=== PATIENT | female | born 1950 | race Caucasian/White ===

== ENCOUNTER → 2016-11-17 | Outpatient (CLI) | payer OTHER ==
[~2016-11-17] MED LIST: ACET1CAP PO; AMLO5TAB2 PO; ASPCH81X PO; B-COCAP2 PO; CALC-354 PO; CHN/1 PO; CLON1TAB3 PO; CLOP1TAB5 PO; EFF75 PO; FERRTAB18; INDO-24 PO; INSDGIPEN SC; INSUINJ4 SQ; MELA1TAB5 PO; METF1000 PO; METO1TAB68 PO; METO25TA3 PO; MIDRIN PO; NITR0.4D6 SL; ONDA4TAB10 SL; ONDA8TAB12 PO; PANT40TA PO; RISP0.257 PO; ROSU40TA PO; SULF1TAB92 PO; TOPI50TA24 PO; TRAM-10 PO; TRIA0.1L EX; VORT10TA12 PO; [UNRECOGNIZED DRUG - CODE] PV
--- NOTE | 2016-11-17 12:40 | MAMMOGRAPHY REPORT ---
BILATERAL DIGITAL SCREENING MAMMOGRAM WITH CAD: 11/17/2016 CLINICAL HISTORY: Routine screening. Patient has no complaints. TECHNIQUE: Current study was also evaluated with a Computer Aided Detection (CAD) system. Bilatera l CC and MLO views were obtained. COMPARISON: Comparison is made to exams dated: 11/12/2015 mammogram, 10/30/2013 mammogram, 11/01/2014 mammogram, 10/26/2012 mammogram, 10/26/2011 mammogram, and 10/20/2010 mammogram - [facility] nt. BREAST COMPOSITION: There are scattered areas of fibroglandular density in both breasts. FINDINGS: No suspicious masses, calcifications, or areas of architectural distortion are noted in e ither breast. There has been no significant interval change compared to prior exams. IMPRESSION: ACR BI-RADS CATEGORY 1: NEGATIVE There is no mammographic evidence of malignancy. A 1 year screening mammogram is recommended. The p atient will receive written notification of the results. Approximately 10% of breast cancers are not detected with mammography. A negative mammographic repor t should not delay biopsy if a clinically suggestive mass is present. Chiqui Manuel M.D. ah/:11/17/2016 10:30:58 Measurement Operator: Nereida SCHUMACHER(Dev)(M), [facility] letter sent: Normal 1/2 BI-RADS Code: ACR BI-RADS Category 1: Negative
== END | disposition home or self-care (01) ==
LOC: C.MAMM 09:13
PROVIDERS: ATTEND Family Medicine
DX: Z12.31 Encounter for screening mammogram for malignant neoplasm of breast (principal)

== ENCOUNTER → 2016-11-18 | Day surgery (SDC) | payer OTHER ==
[2016-11-04 07:44] VITALS: Ht 160 cm; Wt 68.2 kg
[~2016-11-18] VITALS: Ht 160 cm; Wt 68.2 kg
[~2016-11-18] MED LIST changes: +IOPAMIDOL INJ 61% 15 ML VIAL ONE; +LIDOCAINE HCL 1% MPF 5 ML VIAL ONE; +METO-479 PO; -METO1TAB68 PO; +SODIUM CHLORIDE 0.9% INJ 10 ML VIAL ONE
--- NOTE | 2016-11-18 13:45 | History & Physical Bridge - SC ---
H&P Re-Evaluation Bridge Note: I have examined the patient, reviewed the History & Physical and in the interval since the performance of the History & Physical I have noted the following changes of clinical significance: No changes noted
[2016-11-18 14:07] VITALS: TEMP 37
--- NOTE | 2016-11-18 14:16 | Discharge Instructions ---
Discharge Instructions Date of Service Nov 18, 2016. Visit Reason for Visit: Low Back Pain Discharge Discharge Diagnosis / Problem: left leg pain Discharge Goals Goal(s): Decrease discomfort, Improve function Medications Stopped Medications Name(s): Stopped plavix and aspirin 5 days ago Activity Recommendations Activity Limitations: resume your previous activity Anesthesia . Post Anesthesia Instructions: If you have had General Anesthesia or IV Sedation: * Do not drive today. * Resume driving when surgeon permits. * Do not make important decisions or sign legal documents today. * Call surgeon for: 1. Temperature elevations greater than 101 degrees F. 2. Uncontrollable pain. 3. Excessive bleeding. 4. Persistent nausea and vomiting. 5. Medication intolerance (nausea, vomiting or rash). * For nausea and vomiting use only clear liquids such as: tea, soda, bouillon until nausea subsides, then gradually increase diet as tolerated. * If you have any concerns or questions, call your surgeon's office. If physician is unavailable and it is an emergency, call 911 or go to the nearest emergency room. . Diet Recommendations Recommended Home Diet: resume previous diet Procedures Procedures Performed: Caudal Epidural Steroid Injection Pending Studies Studies pending at discharge: no Medical Emergencies . Who to Call and When: Medical Emergencies: If at any time you feel your situation is an emergency, please call 911 immediately. . Non-Emergent Contact Non-Emergency issues call your: Specialist . . "Provider Documentation" section prepared by Nishant Leija.
[2016-11-18 14:21] VITALS: BP 120/78; PULSE 66; O2SAT 98
--- NOTE | 2016-11-18 14:44 | OPERATIVE REPORT ---
DATE OF OPERATION: 11/18/2016 PREOPERATIVE DIAGNOSIS: L5-S1 disk protrusion with a left S1 radiculopathy. POSTOPERATIVE DIAGNOSIS: Same. PROCEDURE: Caudal epidural steroid injection under fluoroscopic guidance. INDICATIONS: The patient is a 66-year-old white female who underwent injections with good relief of pain in the past. She reports, however, pain has been escalating and she is requesting an epidural injection to provide her with relief. PHYSICAL EXAMINATION: Pleasant female seated comfortably in no apparent distress. She has normal lower extremity strength, intact sensation distally with negative straight leg raises. CONSENT: Verbal and written consent was obtained from the patient. Risks and benefits were reviewed. Risks include, but are not limited to epidural abscess and allergic reaction. She wishes to proceed. DESCRIPTION OF PROCEDURE: The patient was taken back to the special procedures room of the [facility], where she was maintained in a prone position. Backside was cleansed with Betadine x3 and a dry sterile dressing was applied. Fluoroscope was used to identify the sacral hiatus and the overlying skin was anesthetized with 4 mL of lidocaine 1% with a 25-gauge 1.5-inch needle. A 25-gauge 3.5-inch spinal needle was then directed towards the sacral canal. It was advanced under lateral fluoroscopic guidance to be well within the canal. She then underwent injection after negative aspiration of 40 mg of Depo-Medrol and 5 mL of preservative free sodium chloride. Injection reproduced some pressure in this area. She underwent complete injection. DISPOSITION: 1. The patient is taken out into the discharge recovery area, where she will be discharged home once discharge criteria have been met. 2. She will follow up in the [facility] office in 2-4 weeks. I attest to the content of the Intraoperative Record and any orders documented therein. Any exceptio ns are noted below.
== END | disposition home or self-care (01) ==
LOC: X.SURG 12:36
PROVIDERS: ATTEND Physical Medicine & Rehabilitation
DX: M54.16 Radiculopathy, lumbar region (principal); Z79.82 Long term (current) use of aspirin

== ENCOUNTER 2017-01-30 12:36 | Emergency (ER) | payer OTHER ==
[~2017-01-30] VITALS: Ht 160 cm; Wt 62.6 kg
[~2017-01-30 12:36] MED LIST changes: -ACET1CAP PO; -CHN/1 PO; -FERRTAB18; -INDO-24 PO; -INSDGIPEN SC; -IOPAMIDOL INJ 61% 15 ML VIAL ONE; -LIDOCAINE HCL 1% MPF 5 ML VIAL ONE; -MELA1TAB5 PO; -ONDA4TAB10 SL; -ONDA8TAB12 PO; -SODIUM CHLORIDE 0.9% INJ 10 ML VIAL ONE; -[UNRECOGNIZED DRUG - CODE] PV
[2017-01-30 12:38] VITALS: TEMP 36.9; Ht 160 cm; Wt 62.6 kg
[2017-01-30] MEDS ORDERED: METOCLOPRAMIDE HCL INJ 5 MG/ML 2 ML VIAL IV STA (13:06)
[2017-01-30] MEDS ORDERED: SODIUM CHLORIDE 0.9% 1000ML 1,000 ML IV STA (13:06)
--- NOTE | 2017-01-30 13:09 | EMERGENCY ROOM VISIT NOTE ---
History Report prepared by Maia: Martha Heredia Under the Supervision of: Dr. Art Rubio M.D. First contact with patient: 12:43 Chief Complaint: VOMITING Stated Complaint: VOMITING, RAPID WEIGHT LOSS History of Present Illness The patient is a 66 year old female who presents to the Emergency Room with complaints of persistent vomiting for the past several weeks. She is accompanied by her . She has been following with her PCP, Dr. Smith with [facility], but states no known etiology has been found for her persistent vomiting. She denies any diarrhea but admits to minor abdominal pain due to her vomiting. She reports she has experienced an 8 pound weight loss in the past 3 weeks due to being unable to keep food down. Dr. Smith has referred her to Gastroenterology, but she states she has not seen GI yet. She did have an endoscopy and colonoscopy this past fall, and states both scans came back normal. The last time she was able to keep food down was last night. The patient still has both her gallbladder and appendix. She is a former smoker, having recently quit smoking on January 02, 2017. She is currently on Chantix. She complains of some increased palpitations over the past few days. The patient is diabetic and has a history of hypertension. The patient also admits to a history of heart disease and notes she had a cardiac stent placed here at [facility] in 2007. 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 A total of 10 systems reviewed and were otherwise negative. Past Medical & Surgical Medical Problems: (1) Diabetes mellitus (2) Heart disease (3) History of bronchitis (4) History of pneumonia (5) Hypertension Family History Cancer Gallbladder disease Heart disease Hypertension Lung disease Social History Smoking Status: Former Smoker Smokeless Tobacco Use: No Alcohol Use: occasionally Drug Use: none Marital Status: Housing Status: lives with family Occupation Status: retired Current/Historical Medications Scheduled Amlodipine Besylate (Norvasc), 2.5 MG PO QPM Aspirin (Aspirin Chewable), 81 MG PO QPM Calcium Carbonate-Cholecalcife (Caltrate 600+D), 1 TAB PO BID Clonazepam (Klonopin), 1 MG PO HS Clopidogrel Bisulfate (Plavix), 75 MG PO QAM Homeopathic Products (Hylafem), 600 MG PV DAILY Insulin Glargine (Lantus Solostar), 14 UNITS SC QAM Melatonin (Kp Melatonin), 1 TAB PO HS Metformin Hcl (Glucophage), 1,000 MG PO BID Metoprolol Succinate (Toprol Xl), 25 MG PO QPM Metoprolol Succinate (Toprol Xl), 100 MG PO QPM Ondasetron Odt (Zofran Odt), 4 MG SL Q6H Pantoprazole (Protonix), 40 MG PO BID Rosuvastatin Calcium (Crestor), 40 MG PO QPM Varenicline (Chantix), 1 MG PO DIRECTED Venlafaxine Hcl (Effexor), 75 MG PO QAM Vortioxetine HBr (Trintellix), 1 TAB PO QAM Scheduled PRN Wmhzauqvqmucb-Dzpdglmnjmfaw-Td (Nodolor), 1 CAP PO UD PRN for Migraine Indomethacin (Indocin), 50 MG PO TID PRN for Pain Nitroglycerin (Nitroglycerin), 1 DOSE SL DIRECTED PRN for CHEST PAIN Ondansetron Hcl (Zofran), 8 MG PO Q8 PRN for Nausea or Vomiting Risperidone (Risperdal), 0.25 MG PO HS PRN for Sleep Tramadol (Ultram), 50 MG PO Q8H PRN for Pain Allergies Coded Allergies: Penicillins (Verified Allergy, Intermediate, HIVES,SWELLING, 01/30/17) HIVES/SWELLING [place] Inhibitors (Verified Allergy, Unknown, cough, 01/30/17) Angiotensin Receptor Blockers (Verified Allergy, Unknown, ELEVATED K, 01/30) Levofloxacin (Verified Allergy, Unknown, JOINT PAIN, 01/30/17) Physical Exam Vital Signs Date Time Temp Pulse Resp B/P (MAP) Pulse Ox O2 Delivery O2 Flow Rate FiO2 01/30/17 16:21 68 18 146/83 99 01/30/17 14:22 82 16 163/87 98 Room Air 01/30/17 13:20 66 01/30/17 12:38 36.9 68 18 117/70 100 Room Air Physical Exam GENERAL: Patient is a healthy-appearing well-nourished 66 year old female. HEAD: Normocephalic atraumatic EYES: Ocular movements intact pupils equal and react to light OROPHARYNX: mucous membranes are moist no exudates present no erythema or edema present NECK: Supple no nuchal rigidity CHEST: Good equal expansion LUNGS: Clear and equal to auscultation CARDIAC: Normal S1 and S2 ABDOMEN: Soft, tender in epigastric area and RUQ, no guarding BACK: No CVA tenderness EXTREMITIES: No pain upon palpation normal muscle strength in all groups no clubbing cyanosis or edema NEURO: Patient is following commands is answering questions appropriately. Alert and oriented x3 Cranial Nerves 2-12 grossly intact Medical Decision & Procedures ER Provider Diagnostic Interpretation: Radiology results as stated below per my review and radiologist interpretation: MESENTERIC ARTERIAL DUPLEX ULTRASOUND. CLINICAL HISTORY: Epigastric pain and vomiting COMPARISON STUDY: CT scan dated 01/30/2017 FINDINGS: The peak systolic velocity within the aorta was 70 cm/s. The peak systolic velocity within the superior mesenteric artery was 309 cm/s. The peak systolic velocity of the celiac artery was 89 cm/s. The peak diastolic velocity of the superior mesenteric artery was within normal limits. IMPRESSION: 1. No evidence of celiac artery stenosis 2. Mild elevation of the peak systolic velocity within the superior mesenteric artery, but normal diastolic velocity. A hemodynamically significant stenosis is not felt to be present. No significant proximal stenosis was visualized on the non-angiographic CT scan performed the same day. Electronically signed by: César Leiva M.D. 01/30/2017 3:[address] ABD/PELVIS IV AND ORAL CONT CLINICAL HISTORY: Epigastric pain and vomiting COMPARISON STUDY: None. TECHNIQUE: Following the IV administration of 119 mL of Optiray-320, CT scan of the abdomen and pelvis was performed from the lung bases to the proximal femurs. Images are reviewed in the axial, sagittal, and coronal planes. IV contrast was administered without complication. CT DOSE: 498.17 mGycm FINDINGS: Lower chest: There are mild basilar atelectatic changes Liver: The contrast-enhanced liver is normal in size, contour, and attenuation. There is no intrahepatic biliary ductal dilatation. The hepatic veins and portal veins are patent. Gallbladder: Unremarkable. Spleen: Normal in size and attenuation. Pancreas: Unremarkable. Adrenal glands: Unremarkable. Kidneys: There is symmetric renal cortical enhancement. The kidneys are normal in size without hydronephrosis. Bowel: There are no transition zones indicate bowel obstruction. There is moderate fecal retention. The appendix appears normal. There is no acute diverticulitis. Peritoneum: There is no intraperitoneal free air or abdominal ascites. There is a tiny fat-containing left inguinal hernia. Vasculature: The abdominal aorta is normal in course and caliber. Adenopathy: Periportal and peripancreatic lymph nodes are the upper limits of normal in size. Pelvic viscera: The uterus appears surgically absent. Skeletal structures: No destructive osseous lesions are seen. IMPRESSION: 1. No evidence of bowel obstruction. No evidence of free air 2. Normal appendix. No evidence of acute diverticulitis 3. Moderate fecal retention Electronically signed by: César Leiva M.D. 01/30/2017 3:41 PM BILIARY ULTRASOUND CLINICAL HISTORY: Right upper quadrant abdominal pain COMPARISON STUDY: No previous studies for comparison. FINDINGS: The pancreas appears sonographically normal. The liver appears sonographically normal. The gallbladder appears sonographically normal. There is no ductal dilatation. The common bile duct measures 5 mm. There is minimal fullness the right renal collecting system. IMPRESSION: Minimal fullness the right renal collecting system. Otherwise normal biliary ultrasound. Electronically signed by: César Leiva M.D. 01/30/2017 3:45 PM Laboratory Results 01/30/17 13:28 Red Blood Count 3.76, Mean Corpuscular Volume 88.8, Mean Corpuscular Hemoglobin 30.3, Mean Corpuscular Hemoglobin Concent 34.1, Mean Platelet Volume 9.7, Neutrophils (%) (Auto) 58.4, Lymphocytes (%) (Auto) 30.4, Monocytes (%) (Auto) 9.8, Eosinophils (%) (Auto) 0.7, Basophils (%) (Auto) 0.5, Neutrophils # (Auto) 3.22, Lymphocytes # (Auto) 1.68, Monocytes # (Auto) 0.54, Eosinophils # (Auto) 0.04, Basophils # (Auto) 0.03 01/30/17 13:28 Test 01/30/17 13:28 01/30/17 13:36 01/30/17 14:25 White Blood Count 5.52 K/uL (4.8-10.8) Red Blood Count 3.76 M/uL (4.2-5.4) Hemoglobin 11.4 g/dL (12.0-16.0) Hematocrit 33.4 % (37-47) Mean Corpuscular Volume 88.8 fL (80-100) Mean Corpuscular Hemoglobin 30.3 pg (25-34) Mean Corpuscular Hemoglobin Concent 34.1 g/dl (32-36) Platelet Count 188 K/uL (130-400) Mean Platelet Volume 9.7 fL (7.4-10.4) Neutrophils (%) (Auto) 58.4 % Lymphocytes (%) (Auto) 30.4 % Monocytes (%) (Auto) 9.8 % Eosinophils (%) (Auto) 0.7 % Basophils (%) (Auto) 0.5 % Neutrophils # (Auto) 3.22 K/uL (1.4-6.5) Lymphocytes # (Auto) 1.68 K/uL (1.2-3.4) Monocytes # (Auto) 0.54 K/uL (0.11-0.59) Eosinophils # (Auto) 0.04 K/uL (0-0.5) Basophils # (Auto) 0.03 K/uL (0-0.2) RDW Standard Deviation 44.2 fL (36.4-46.3) RDW Coefficient of Variation 13.4 % (11.5-14.5) Immature Granulocyte % (Auto) 0.2 % Immature Granulocyte # (Auto) 0.01 K/uL (0.00-0.02) Est Creatinine Clear Calc Drug Dose 38.1 ml/min Estimated GFR () 54.5 Estimated GFR (Non- 47.1 BUN/Creatinine Ratio 18.6 (10-20) Calcium Level 8.7 mg/dl (8.5-10.1) Total Bilirubin 0.4 mg/dl (0.2-1) Direct Bilirubin 0.1 mg/dl (0-0.2) Aspartate Amino Transf (AST/SGOT) 14 U/L (15-37) Alanine Aminotransferase (ALT/SGPT) 13 U/L (12-78) Alkaline Phosphatase 41 U/L (45-117) Total Creatine Kinase 36 U/L (26-192) Creatine Kinase MB 0.5 ng/ml (0.5-3.6) Creatine Kinase MB Ratio 1.4 (0-3.0) Troponin I < 0.015 ng/ml (0-0.045) Total Protein 7.2 gm/dl (6.4-8.2) Albumin 3.7 gm/dl (3.4-5.0) Lipase 116 U/L (73-393) Bedside Hemoglobin 11.2 g/dl (12.0-16.0) Bedside Hematocrit 33 % (37-47) Bedside Sodium 135 mEq/L (135-144) Bedside Potassium 4.1 mEq/L (3.3-5.0) Bedside Chloride 100 mEq/L (101-112) Bedside Total CO2 22 mEq/l (24-31) Anion Gap 19.0 mmol/L (16-25) Bedside Blood Urea Nitrogen 24 mg/dl (7-18) Bedside Creatinine 1.3 mg/dl (0.6-1.3) Bedside Glucose (other) 78 mg/dl (70-99) Bedside Ionized Calcium (Daniella) 1.24 mmol/l (1.12-1.32) Urine Color YELLOW Urine Appearance CLEAR (CLEAR) Urine pH 6.5 (4.5-7.5) Urine Specific [place] 1.016 (1.000-1.030) Urine Protein NEG (NEG) Urine Glucose (UA) NEG (NEG) Urine Ketones NEG (NEG) Urine Occult Blood NEG (NEG) Urine Nitrite NEG (NEG) Urine Bilirubin NEG (NEG) Urine Urobilinogen NEG (NEG) Urine Leukocyte Esterase NEG (NEG) Labs reviewed by ED physician. Medications Administered Medications (Trade) Dose Ordered Sig/Melvin Route Start Time Stop Time Status Last Admin Dose Admin Sodium Chloride 1,000 ml @ 999 mls/hr Q1H1M STAT IV 01/30/17 13:06 01/30/17 14:06 DC 01/30/17 13:31 999 MLS/HR Metoclopramide HCl (Reglan Inj) 10 mg NOW STAT IV 01/30/17 13:06 01/30/17 13:10 DC 01/30/17 13:31 10 MG Ondansetron HCl (Zofran Inj) 4 mg NOW STAT IV 01/30/17 14:25 01/30/17 14:26 DC 01/30/17 14:34 4 MG ECG Indication: vomiting Rate (beats per minute): 67 Rhythm: normal sinus Findings: other (old septal infarct, normal EKG) ED Course 1257: Past medical records reviewed. The patient was evaluated in room C1. A complete history and physical examination was performed. 1306: Reglan HCl 10 mg IV, NSS 1000 ml @ 999 mls/hr IV. 1425: Zofran 4 mg IV. 1600: I reevaluated the patient. She is feeling better. I discussed her results and discharge instructions and she verbalized complete understanding and agreement. Medical Decision Medication Reconciliation: I attest that I have personally reviewed the patient' s current medication list Blood Pressure Screening: Patient was found to have normal blood pressure on screening and does not require follow up. Prior records/ancillary studies reviewed. Triage Nursing notes reviewed. The patient's history was concerning for abdominal pain. Differential diagnosis: Etiologies such as appendicitis, diverticulitis, PUD, biliary pathology, UTI, pancreatitis, obstruction, mesenteric ischemia, aortic pathology, infections, inflammatory bowel disease, renal colic, as well as others were entertained. This is a 66-year-old female who presents emergency Department with weight loss as well as vomiting that has been ongoing for the past several weeks. The patient recently had an MRI of her abdomen which was reviewed in the [employer] system. Due to her past medical history including years of smoking she was sent for mesenteric ultrasound as well as a gallbladder ultrasound. Neither of these show an acute process serial abdominal examinations were performed on the patient in the emergency department and at no tender the patient exhibited a surgical abdomen or abdominal tenderness. She was sent for CAT scan the abdomen pelvis using contrast. The patient refused pain medication in the emergency department she was given nausea medication as well as fluid. I do believe that the patient can be conservatively treated using nausea medication and I will note that the patient was able to keep down the oral contrast in the emergency department. She will follow-up with gastroenterology. Patient and family were in agreement with the treatment plan. Impression Primary Impression: Vomiting Scribe Attestation The scribe's documentation has been prepared under my direction and personally reviewed by me in its entirety. I confirm that the note above accurately reflects all work, treatment, procedures, and medical decision making performed by me. Departure Information Dispostion Home / Self-Care Prescriptions Ondasetron Odt (ZOFRAN ODT) 4 Mg Tab 4 MG SL Q6H for Nausea, #6 TAB Prov: Art Rubio MD 01/30/17 Referrals Brent Smith M.D. (PCP) Patient Instructions ED Diet Vomiting Diarrhea, Hypertension Sc, My [facility], Nausea Vomit Control, Vomit Diarrhea Self Care Additional Instructions Follow up with DR Cole's office Take 10 oz bottle of miralax; Add to 16 oz of gatorade Drink continuously until moving creamy stools Clear liquid diet for next 48 hours Return if you develop fevers or pain worsens You were found to have an elevated blood pressure today (>120 sytolic or >90 diastolic). Per medicare guidelines, you need to follow up with this blood pressure screening with your Primary Care Physician (PCP). For a new PCP call [phone]. Culture results are usually available in approx 48 hours You have been examined and treated today on an emergency basis only. This is not a substitute for, or an effort to provide, complete comprehensive medical care. It is impossible to recognize and treat all injuries or illnesses in a single emergency department visit. It is therefore important that you follow up closely with Dr Smith. Call as soon as possible for an appointment. Thank you for your time and consideration. I look forward to speaking with you again soon. Please don't hesitate to call us if you have any questions. Problem Qualifiers Primary Impression: Vomiting Vomiting type: unspecified Vomiting Intractability: unspecified Nausea presence: unspecified Qualified Codes: R11.10 - Vomiting, unspecified
[2017-01-30 13:40] LABS: HEMATOCRIT 33.4 % (37-47); MEAN CELL VOLUME 88.8 fL (80-100); MEAN CORPUSCULAR HEMOGLOBIN 30.3 pg (25-34); MEAN CORPUSCULAR HGB CONC 34.1 g/dl (32-36); MEAN PLATELET VOLUME 9.7 fL (7.4-10.4); PLATELET COUNT 188 K/uL (130-400); RED BLOOD COUNT 3.76 M/uL (4.2-5.4); WHITE BLOOD COUNT 5.52 K/uL (4.8-10.8)
[2017-01-30 13:56] LABS: ALT/SGPT 13 U/L (12-78); AST/SGOT 14 U/L (15-37); BLOOD UREA NITROGEN 22 mg/dl (7-18); BUN/CREATININE RATIO 18.6 (10-20); CALCIUM 8.7 mg/dl (8.5-10.1); CARBON DIOXIDE 24 mmol/L (21-32); CHLORIDE 102 mmol/L (98-107); GLUCOSE 76 mg/dl (70-99); POTASSIUM 4.1 mmol/L (3.5-5.1); SODIUM 137 mmol/L (136-145)
[2017-01-30 14:00] LABS: BASO % 0.5 %; BASO ABS # 0.03 K/uL (0-0.2); COMPLETE YES; EOS % 0.7 %; IG% 0.2 %; LYMPH % 30.4 %; LYMPH ABS # 1.68 K/uL (1.2-3.4); MONO % 9.8 %; NEUT % 58.4 %
[2017-01-30 14:01] LABS: ALKALINE PHOSPHATASE 41 U/L (45-117); CKMB/CK RATIO 1.4 (0-3.0)
[2017-01-30 14:08] LABS: ISTAT CREATININE 1.3 mg/dl (0.6-1.3); ISTAT HEMOGLOBIN 11.2 g/dl (12.0-16.0); ISTAT IONIZED CALCIUM 1.24 mmol/l (1.12-1.32)
[2017-01-30] MEDS ORDERED: OPTIRAY 320 IV PRN (14:15)
[2017-01-30] MEDS ORDERED: ONDANSETRON INJ 2 MG/ML 2 ML VIAL IV STA (14:25)
[2017-01-30] MEDS ORDERED: ONDA8TAB12 PO (14:42)
[2017-01-30] MEDS ORDERED: MELA1TAB5 PO (14:42)
[2017-01-30] MEDS ORDERED: INDO-24 PO (14:42)
[2017-01-30] MEDS ORDERED: ACET1CAP PO (14:42)
[2017-01-30] MEDS ORDERED: [UNRECOGNIZED DRUG - CODE] PV (14:42)
[2017-01-30] MEDS ORDERED: INSDGIPEN SC (14:42)
[2017-01-30] MEDS ORDERED: CHN/1 PO (14:42)
[2017-01-30 14:44] LABS: URINE APPEARANCE CLEAR (CLEAR); URINE BILIRUBIN NEG (NEG); URINE COLOR YELLOW; URINE NITRITE NEG (NEG); URINE PH 6.5 (4.5-7.5); URINE SPECIFIC GRAVITY 1.016 (1.000-1.030); UROBILINOGEN NEG (NEG)
[2017-01-30 14:46] LABS: MANUAL MICROSCOPIC REQUIRED? NO; REVIEW REQ? NO
--- NOTE | 2017-01-30 15:42 | DIAGNOSTIC IMAGING REPORT ---
CT ABD/PELVIS IV AND ORAL CONT CLINICAL HISTORY: Epigastric pain and vomiting COMPARISON STUDY: None. TECHNIQUE: Following the IV administration of 119 mL of Optiray-320, CT scan of the abdomen and pelvis was performed from the lung bases to the proximal femurs. Images are reviewed in the axial, sagittal, and coronal planes. IV contrast was administered without complication. CT DOSE: 498.17 mGycm FINDINGS: Lower chest: There are mild basilar atelectatic changes Liver: The contrast-enhanced liver is normal in size, contour, and attenuation. There is no intrahepatic biliary ductal dilatation. The hepatic veins and portal veins are patent. Gallbladder: Unremarkable. Spleen: Normal in size and attenuation. Pancreas: Unremarkable. Adrenal glands: Unremarkable. Kidneys: There is symmetric renal cortical enhancement. The kidneys are normal in size without hydronephrosis. Bowel: There are no transition zones indicate bowel obstruction. There is moderate fecal retention. The appendix appears normal. There is no acute diverticulitis. Peritoneum: There is no intraperitoneal free air or abdominal ascites. There is a tiny fat-containing left inguinal hernia. Vasculature: The abdominal aorta is normal in course and caliber. Adenopathy: Periportal and peripancreatic lymph nodes are the upper limits of normal in size. Pelvic viscera: The uterus appears surgically absent. Skeletal structures: No destructive osseous lesions are seen. IMPRESSION: 1. No evidence of bowel obstruction. No evidence of free air 2. Normal appendix. No evidence of acute diverticulitis 3. Moderate fecal retention Electronically signed by: César Leiva M.D. 01/30/2017 3:41 PM Dictated Date/Time: 01/30/2017 3:37 PM
--- NOTE | 2017-01-30 15:46 | DIAGNOSTIC IMAGING REPORT ---
BILIARY ULTRASOUND CLINICAL HISTORY: Right upper quadrant abdominal pain COMPARISON STUDY: No previous studies for comparison. FINDINGS: The pancreas appears sonographically normal. The liver appears sonographically normal. The gallbladder appears sonographically normal. There is no ductal dilatation. The common bile duct measures 5 mm. There is minimal fullness the right renal collecting system. IMPRESSION: Minimal fullness the right renal collecting system. Otherwise normal biliary ultrasound. Electronically signed by: César Leiva M.D. 01/30/2017 3:45 PM Dictated Date/Time: 01/30/2017 3:43 PM
--- NOTE | 2017-01-30 15:53 | DIAGNOSTIC IMAGING REPORT ---
MESENTERIC ARTERIAL DUPLEX ULTRASOUND. CLINICAL HISTORY: Epigastric pain and vomiting COMPARISON STUDY: CT scan dated 01/30/2017 FINDINGS: The peak systolic velocity within the aorta was 70 cm/s. The peak systolic velocity within the superior mesenteric artery was 309 cm/s. The peak systolic velocity of the celiac artery was 89 cm/s. The peak diastolic velocity of the superior mesenteric artery was within normal limits. IMPRESSION: 1. No evidence of celiac artery stenosis 2. Mild elevation of the peak systolic velocity within the superior mesenteric artery, but normal diastolic velocity. A hemodynamically significant stenosis is not felt to be present. No significant proximal stenosis was visualized on the nonangiographic CT scan performed the same day. Electronically signed by: César Leiva M.D. 01/30/2017 3:51 PM Dictated Date/Time: 01/30/2017 3:45 PM
[2017-01-30] MEDS ORDERED: ONDA4TAB10 SL (16:08)
[2017-01-30 16:21] VITALS: BP 146/83; PULSE 68; O2SAT 99
== END 2017-01-30 16:22 | disposition home or self-care (01) ==
LOC: C.EDB 12:37 → C.EDC 16:22
DX: R11.10 Vomiting, unspecified (principal); E11.9 Type 2 diabetes mellitus without complications; I51.9 Heart disease, unspecified; I10 Essential (primary) hypertension; Z79.82 Long term (current) use of aspirin; Z87.891 Personal history of nicotine dependence; Z82.49 Family history of ischemic heart disease and other diseases of the circulatory system; Z79.4 Long term (current) use of insulin; K59.00 Constipation, unspecified

== ENCOUNTER → 2017-03-22 | Outpatient (CLI) | payer OTHER ==
[~2017-03-22] MED LIST changes: +ACET1CAP PO; -B-COCAP2 PO; +CHN/1 PO; +INDO-24 PO; +INSDGIPEN SC; -INSUINJ4 SQ; +MELA1TAB5 PO; -METO-479 PO; +METO1TAB68 PO; -MIDRIN PO; +ONDA4TAB10 SL; +ONDA8TAB12 PO; -SULF1TAB92 PO; -TOPI50TA24 PO; -TRIA0.1L EX; +[UNRECOGNIZED DRUG - CODE] PV
--- NOTE | 2017-03-22 08:38 | DIAGNOSTIC IMAGING REPORT ---
MRI LUMBAR SPINE W/O CONTRAST CLINICAL HISTORY: Left sacral radiculopathy. TECHNIQUE: Sagittal and axial T1, T2 and STIR images were obtained. COMPARISON STUDY: MRI dated 03/23/2016 OBSERVATIONS: The vertebral bodies and posterior elements appear intact. There is no abnormal bony signal present to suggest a marrow replacement process. L1-2: There is a minor circumferential disc bulge. There is no significant spinal or foraminal stenosis L2-3: There is a mild circumferential disc bulge, and tiny left foraminal disc protrusion.. There is a slight triangular configuration of the spinal canal. There is no significant foraminal narrowing L3-4: There is a mild circumferential disc bulge, and tiny left foraminal disc protrusion. There is a slight triangle configuration spinal canal. There is no significant foraminal narrowing. L4-5: There is a mild circumferential disc bulge. There is a mild triangular configuration spinal canal. There is no significant foraminal narrowing L5-S1: There is a disc bulge and tiny central disc protrusion. There is no significant foraminal narrowing. The conus medullaris and cauda equina appear normal. IMPRESSION: Multilevel spondylitic changes as described above. Minor triangular spinal canal narrowing at multiple levels. No significant frontal stenosis. Electronically signed by: César Leiva M.D. 03/22/2017 8:37 AM Dictated Date/Time: 03/22/2017 8:33 AM
== END | disposition home or self-care (01) ==
LOC: C.MRIBC 07:31
PROVIDERS: ATTEND Physical Medicine & Rehabilitation
DX: M54.18 Radiculopathy, sacral and sacrococcygeal region (principal); M51.26 Other intervertebral disc displacement, lumbar region

== ENCOUNTER → 2017-11-25 | Outpatient (CLI) | payer OTHER ==
[~2017-11-25] MED LIST changes: +METO-479 PO; -METO1TAB68 PO; -METO25TA3 PO; +METO25TA4 PO; -ONDA4TAB10 SL
--- NOTE | 2017-11-25 15:38 | MAMMOGRAPHY REPORT ---
BILATERAL DIGITAL SCREENING MAMMOGRAM TOMOSYNTHESIS WITH CAD: 11/25/2017 CLINICAL HISTORY: Routine screening. Patient has no complaints. TECHNIQUE: Breast tomosynthesis in addition to standard 2D mammography was performed. Current study was also evaluated with a Computer Aided Detection (CAD) system. COMPARISON: Comparison is made to exams dated: 11/17/2016 mammogram, 11/12/2015 mammogram, 11/01/2014 m ammogram, 10/30/2013 mammogram, 10/26/2012 mammogram, and 10/26/2011 mammogram - [facility]. BREAST COMPOSITION: There are scattered areas of fibroglandular density in both breasts. FINDINGS: No suspicious masses, calcifications, or areas of architectural distortion are noted in ei ther breast. There has been no significant interval change compared to prior exams. Mildly prominent bilateral axillary lymph nodes appear stable compared to multiple prior exams including the 2013 and 2010 exams. IMPRESSION: ACR BI-RADS CATEGORY 2: BENIGN There is no mammographic evidence of malignancy. A 1 year screening mammogram is recommended. The pa tient will receive written notification of the results. Approximately 10% of breast cancers are not detected with mammography. A negative mammographic report should not delay biopsy if a clinically suggestive mass is present. Chiqui Manuel M.D. /:11/25/2017 15:02:21 Locator: Nereida Jordan, [facility] letter sent: Normal 1/2 BI-RADS Code: ACR BI-RADS Category 2: Benign
== END | disposition home or self-care (01) ==
LOC: C.MAMM 09:36
PROVIDERS: ATTEND Family Medicine
DX: Z12.31 Encounter for screening mammogram for malignant neoplasm of breast (principal)

== ENCOUNTER 2018-10-17 07:56 | Observation (INO) ==
[2018-10-17] MEDS ORDERED: MIDAZOLAM HCL 1 MG/ML 2ML VIAL ONE ×2 (09:18→11:26)
[2018-10-17] MEDS ORDERED: NiCARDipine HCL INJ 2.5 MG/ML 10 ML AMP ONE (09:18)
[2018-10-17] MEDS ORDERED: HEPARIN (PORCINE) 1000 UNIT/ML 10 ML (CATH LAB USE ONLY) ONE ×2 (09:18→12:17)
[2018-10-17] MEDS ORDERED: NITROGLYCERIN/D5W 100MCG/ML 20ML SYR ONE (09:19)
[2018-10-17] MEDS ORDERED: fentaNYL citrate 100 MCG/2 ML VIAL ONE ×2 (09:20→11:26)
--- NOTE | 2018-10-17 09:49 | History & Physical Bridge Note ---
Date of Service October 17, 2018 History & Physical Bridge Note I have examined the patient, reviewed the History & Physical and in the interval since the performance of the History & Physical I have noted the following changes of clinical significance: no changes noted
--- NOTE | 2018-10-17 09:49 | Pre Anesthesia Assessment ---
Date of Service October 17, 2018 Pre Sedation Assessment Vital Signs Temp Pulse Pulse Pulse Resp BP Pulse Ox 10/19/18 10:44 37 C 69 75 18 136/85 93 10/19/18 07:08 37 C 75 18 136/85 93 10/19/18 03:53 36.8 C 76 18 138/89 96 10/19/18 00:00 72 10/18/18 22:54 36.6 C 66 18 122/74 96 10/18/18 19:59 36.9 C 71 17 113/70 96 10/18/18 16:00 73 10/18/18 15:30 37.1 C 70 18 121/73 96 10/18/18 11:10 37.3 C 70 17 114/70 96 Cardiovascular RRR, no murmur, no edema Respiratory normal respiratory effort, lungs clear to auscultation Pre-Sedation Airway Assessment Smoking Status: Current every day smoker Hx Sleep Apnea: No Short, Thick Neck: Yes Thyromental Distance: > or= 3.5 Finger Breadths Oral Cavity: + WNL Mallampati Class: III ASA: ASA3 NPO Status Date of Last Intake of Fluids: 10/17/18 Time of Last Intake of Fluids: 06:00 Last Oral Intake of Fluids Comment: sips with pills Date of Last Intake of Solid Food: 10/16/18 Time of Last Intake of Solid Foods: 20:00 Procedure Planning Contraindications for Sedation: none Current Medications Reviewed: Yes Notes The planned sedation has been discussed with the patient. Informed Consent was obtained. I have identified the patient, determined the appropriateness of sedation and have assessed the patient immediately prior to the procedure. All medicine(s) and interventions are by my order.
--- NOTE | 2018-10-17 11:04 | Post Anesthesia Assessment ---
Date of Service October 17, 2018 Post Sedation Assessment Vital Signs Temp Pulse Pulse Pulse Resp BP Pulse Ox 10/19/18 10:44 37 C 69 75 18 136/85 93 10/19/18 07:08 37 C 75 18 136/85 93 10/19/18 03:53 36.8 C 76 18 138/89 96 10/19/18 00:00 72 10/18/18 22:54 36.6 C 66 18 122/74 96 10/18/18 19:59 36.9 C 71 17 113/70 96 10/18/18 16:00 73 10/18/18 15:30 37.1 C 70 18 121/73 96 10/18/18 11:10 37.3 C 70 17 114/70 96 Discharge Sedation Level of Care: Fast Track Phase II Post Sedation Plan On clinical assessment, the patient appears to have tolerated the sedation without complications. Patient is recovering as anticipated. Patient will continue to be monitored by nursing and may be discharged when sedation discharge criteria are met per below protocol. Upon Completions of procedure and additional 15 minutes continue every 5 minute vital signs and the P.A.R. score; then discharge to a Phase I or Fast Track to Phase II per the following guidelines: * Discharge Patient to appropriate Phase II area if PAR is 8 or greater or return to pre- procedure baseline. The post - procedure orders will be as directed. * If PAR score is less than 8 or not return to pre-procedure baseline then patient will follow Phase I monitoring till PAR is reached for Phase II. The Phase I may be done in procedure room or may call to secure a Phase I area. * If naloxone or flumazenil are used for reversal, hold in Phase I for continued monitoring from when last reversal dose was given for a minimum of 60 minutes or longer pending the nurse and/or physician discretion of patient condition before discharge to Phase II. Please call the Sedation Physician to re-evaluate and complete post-note for discharge to Phase II area. Do NOT discharge from procedure sedation or Phase 1 until post- sedation evaluation note is complete by procedure /sedation MD Sedation Discharge Instructions to be given to the patient at discharge to home.
--- NOTE | 2018-10-17 11:21 | Cardiac Catheterization ---
Cardiac Cath Procedure Full Procedure Date October 17, 2018 Pre-Procedure Diagnosis Pre-Procedure Diagnosis: Angina, Positive Stress Test and CAD AUC Score AUC Score: 8 Post-Procedure Diagnosis Post-Procedure Diagnosis: Severe CAD and Elevated Intracardiac Pressures Procedure(s) Performed Procedure(s) Performed: Coronary Angiography and Left Heart Cath Radiator Mechanic Dexter Morales DO Wood Mechanist(s) Jose J RTDev Estimated Blood Loss Estimated Blood Loss: 8cc Medication(s) Medication(s): Fentanyl, Lidocaine 1% and Versed Summary of Findings 90% proximal LAD, calcified Moderate diffuse RCA with 60% ISR of proximal stent, and 60% mid stenosis distal to stent Hemodynamics Rest Ao:: 157/70/104 Final Ao: 165/70/108 LV: 144/0/14 Recommendations Recommendations: PCI without planned CABG Specimens Specimens: None Radiation Exposure (mGy) 745 Contrast (mls) 55 Fluids (cc crystalloids) Fluids (cc crystalloids): 136 nss Anesthesia Moderate sedation. Start 0951. End 1101. sedation monitor Venecia DINH. Procedural Complication(s) None Disposition skill labor for PCI LAD ACC Data: Behavioral Health Assistant Cardiac Status Clinical evaluation leading to the procedure CAD Presenation: Stable angina Anginal Classification: CCS III Heart Failure: No Stress Testing w/SPECT MPI: Yes - Positive and Risk/Extent of Ischemia (High risk stress, high probability of obstructive CAD) Coronary Anatomy Dominant: Right Left Main (% Stenosis): Distal (10%, mild calcification) LAD (% Stenosis): Ostial (20%), Proximal (90%, severely calcified) and Mid (40- 50% diffuse) D1 (% Stenosis): Ostial (50% ) and Proximal (20%) Circumflex (% Stenosis): Proximal (diffuse disease, 20-30%), Mid (diffuse disease, 20-30%) and Distal (diffuse disease, 20-30%) OM1 (% Stenosis): Ostial (small caliber vessel with mild 10-20% diffuse disease) L PL1 (% Stenosis): Mid (diffuse 30-60%) RCA (% Stenosis): Proximal (60% in-stent restenosis) and Mid (60% distal to stent) R PDA (% Stenosis): Mid (small vessel with diffuse moderate disease 30%) R PL1 (% Stenosis): Mid (small vessel with diffuse moderate disease 30%) AM (% Stenosis): Mid (moderate diffuse disease, 30-40%) Diagnostic Physicians Name: Dexter Morales DO Status: Elective Closure Device Percutaneous Entry Location: Radial (unable to advance wire. Radial site abandoned.) Recommendations: PCI without planned CABG Intraprocedure Events Significant Disection: No Perforation: No
[2018-10-17] MEDS ORDERED: ONDANSETRON INJ 2 MG/ML 2 ML VIAL IV PRN (12:59)
[2018-10-17] MEDS ORDERED: CLOPIDOGREL BISULFATE 300 MG TAB ONE (13:00)
[2018-10-17] MEDS ORDERED: clonazePAM 1 MG TAB PO PRN (13:08)
[2018-10-17] MEDS ORDERED: NITROGLYCERIN SL 0.4 MG/TAB TAB SL PRN (13:08)
--- NOTE | 2018-10-17 13:12 | Post Anesthesia Assessment ---
Date of Service October 17, 2018 Post Sedation Assessment Vital Signs Pulse Resp BP Pulse Ox 10/17/18 08:26 70 16 181/86 H 96 Recovery Score Activity: Moves 4 extremities Respiration: Deep Breath/Cough Circulation: +/-20% PreAnes Value Consciousness: Fully Awake Oxygen Saturation: > 92% On Room Air Post Anesthesia Score: 10 Discharge Sedation Level of Care: Fast Track Phase II Post Sedation Plan On clinical assessment, the patient appears to have tolerated the sedation without complications. Patient is recovering as anticipated. Patient will continue to be monitored by nursing and may be discharged when sedation discharge criteria are met per below protocol. Upon Completions of procedure and additional 15 minutes continue every 5 minute vital signs and the P.A.R. score; then discharge to a Phase I or Fast Track to Phase II per the following guidelines: * Discharge Patient to appropriate Phase II area if PAR is 8 or greater or return to pre- procedure baseline. The post - procedure orders will be as directed. * If PAR score is less than 8 or not return to pre-procedure baseline then patient will follow Phase I monitoring till PAR is reached for Phase II. The Phase I may be done in procedure room or may call to secure a Phase I area. * If naloxone or flumazenil are used for reversal, hold in Phase I for continued monitoring from when last reversal dose was given for a minimum of 60 minutes or longer pending the nurse and/or physician discretion of patient condition before discharge to Phase II. Please call the Sedation Physician to re-evaluate and complete post-note for discharge to Phase II area. Do NOT discharge from procedure sedation or Phase 1 until post- sedation evaluation note is complete by procedure /sedation MD Sedation Discharge Instructions to be given to the patient at discharge to home.
--- NOTE | 2018-10-17 13:14 | Cardiac Catheterization ---
Cardiac Cath Procedure: Brief Procedure Date October 17, 2018 Pre-Procedure Diagnosis Pre-Procedure Diagnosis: Angina, Positive Stress Test and CAD AUC Score AUC Score: 8 Post-Procedure Diagnosis Post-Procedure Diagnosis: Severe CAD and Elevated Intracardiac Pressures Procedure(s) Performed Procedure(s) Performed: Coronary Angiography and Left Heart Cath Reconciliation Analyst Davie Gomez MD Estimated Blood Loss Estimated Blood Loss: None (8cc) Medication(s) Medication(s): Fentanyl, Lidocaine 1% and Versed Preliminary Findings 90% proximal LAD, calcified Moderate diffuse RCA with 60% ISR of proximal stent, and 60% mid stenosis distal to stent PCI of proximal to mid LAD with 2 BANDAR with angioplasty of diagonal Recommendations Recommendations: PCI without planned CABG Specimens Specimens: None Fluids (cc crystalloids) Fluids (cc crystalloids): 136 nss Anesthesia Moderate sedation. Procedural Complication(s) None Disposition PCU
--- NOTE | 2018-10-17 14:44 | Hospitalist Consultation ---
Date of Consultation October 17, 2018 Assessment & Plan (1) ASCVD (arteriosclerotic cardiovascular disease): s/p cath with stent placement x 2 today - management per primary service (2) HTN (hypertension): Pt with episodes of elevated BP post-cath which seem to correlate with chest pain - received nitro paste, sublingual nitro and metoprolol IV with improvement - continued management per primary service (3) Diabetes: A1c on 10/13/18 - 7.0. Pt typically well-controlled on Metformin which is currently being held - Diabetic diet - [facility] ACHS with sliding scale insulin coverage (4) Dyslipidemia: - Continue rosuvastatin as taken as outpatient (5) Major depressive disorder: - Recommend continue Effexor while admitted - Trintellix is currently on hold as non-formulary - however, if patient not being discharged tomorrow, would consider resuming and have the medication brought from home. Plan: Plan - Verónica Valencia PA-C: Pt seen and reviewed with collaborating physician, Dr. Young. Plan for medical management reviewed and as outlined above. We appreciate this consult and will follow patient with you. Patient will be followed starting tomorrow by Dr. Reed. Please do not hesitate to call with questions - coverage is available 14/03 using the team pager which is [phone]. Jennifer Valencia PA-C Supervising Physician Co-Signing Physician Notes HISTORY: Record reviewed. Patient interviewed and examined in her room. Care coordinated with Verónica Valencia PA-C. Please refer to her documentation for patient's history. Briefly, 68-year-old female with history of ischemic heart disease, status post PCI of RCA, diabetes, and other problems. Referred for cardiac catheterization because a recent positive stress test. Found to have a 90% LAD lesion. PCI with drug-eluting stent performed by Dr. 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 Had some pain after the procedure without associated EKG changes. Pain-free at time of my assessment. EXAM: General- no distress Lungs- clear to auscultation; no respiratory distress Cardiovascular- RRR; no murmur; S4, no S3; no JVD; no pretibial edema Abdomen- + bowel sounds, soft, nontender Extremities- no cyanosis; no calf tenderness; no hematoma right wrist; no hematoma right groin; right pedal pulses intact Neuro- alert, oriented Skin- warm & dry DATA: Random blood sugar at 2012 = 180. Serum troponin at 1626 = 2.06. Other lab studies as noted. EKG performed at 1530 reviewed and demonstrated normal sinus rhythm at 70/ minute, poor R wave progression, J-point elevation in V4-V6, no acute changes. ASSESSMENT AND PLAN: CAD, s/p PCI of LAD with drug-eluting stent. Management per Cardiology. Hypertension. Antihypertensive medications per Cardiology. Diabetes mellitus type 2. Recent hemoglobin A1c 7.0. Hold metformin during hospital stay. Insulin coverage as needed for elevated blood sugars. Low risk for VTE (1%) per IMPROVE Predictive Risk Model. Please refer to LUDIN Valencia's documentation for discussion of other issues. History of Present Illness Attending Physician: PCP - Dr. 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 Pt underwent nuclear stress testing on Oct 13 due to complaint of exertional chest pressure. During stress testing, she developed EKG changes and chest pressure, relieved by nitroglycerin. Pt has a history of ASCVD s/p PTCA with stenting of proximal RCA (drug-eluting stent) in 2007, diffuse diabetic coronary disease with prior GA in 2003. After abnormal stress test, pt was referred for diagnostic cardiac cath by Dr. Morales today during which she was noted to have 90% stenosis of proximal LAD (calcified). Pt then underwent PCI of proximal to mid LAD with 2 BANDAR placed and angioplasty of diagonal by Dr. Gomez. Pt is currently seen on the floor and c/o left sided chest pain. She was initially pain-free post-cath but after transfer to the floor, she started with this pain. She was seen by Dr. Lobaot and Dr. Gomez for this pain and it has improved somewhat with nitro, nitro paste and metoprolol. She had nausea earlier today but reports this has improved and she is hungry for dinner. She is also c/o headache but relates this to lack of caffeine (regular coffee drinker). She has had ongoing issues with headaches over the past couple months for which she was recently restarted on Topamax and is scheduled to see the headache clinic this February. She denies cough, palpitations, wheezing, dyspnea at present. She reports her diabetes is currently well-controlled on Metformin 500 mg BID as an outpatient with fasting sugars usually 80s-100. Allergies Allergy/AdvReac Type Severity Reaction Status Date / Time Penicillins Allergy Intermediate HIVES,SWELL Verified 09/28/18 08:59 ING [place] Inhibitors AdvReac Unknown cough Verified 10/17/18 13:19 ARB-Angiotensin Receptor AdvReac Unknown ELEVATED K Verified 10/17/18 13:19 Antagonist levofloxacin AdvReac Unknown JOINT PAIN Verified 10/17/18 13:19 Home Medications Home Medications Medication Instructions Recorded Confirmed Type Midrin 2 cap PO DIRECTED MDD 5 09/28/18 10/17/18 History amitriptyline 20 mg PO HS 09/28/18 10/17/18 History aspirin 81 mg PO DAILY 09/28/18 10/17/18 History calcium carbonate-vitamin D3 1 tab PO BID 09/28/18 10/17/18 History [Calcium 600 + D(3)] clonazepam [Klonopin] 1 mg PO HS PRN 09/28/18 10/17/18 History clopidogrel [Plavix] 75 mg PO DAILY 09/28/18 10/17/18 History hydralazine 10 mg PO BID 09/28/18 10/17/18 History melatonin 3 mg PO HS 09/28/18 10/17/18 History metformin 500 mg PO BIDM 09/28/18 10/17/18 History metoprolol succinate [Toprol XL] 25 mg PO QAM 09/28/18 10/17/18 History metoprolol succinate [Toprol XL] 100 mg PO QAM 09/28/18 10/17/18 History nitroglycerin [Nitrostat] 0.4 mg SUBLINGUAL DIRECTED PRN 09/28/18 10/17/18 History nystatin-triamcinolone 1 applic TOPICAL TID 09/28/18 10/17/18 History pantoprazole [Protonix] 40 mg PO BID 09/28/18 10/17/18 History rosuvastatin [Crestor] 40 mg PO DAILY 09/28/18 10/17/18 History topiramate [Topamax] 25 mg PO BID 09/28/18 10/17/18 History tramadol 25 mg PO Q8 PRN 09/28/18 10/17/18 History venlafaxine [Effexor XR] 150 mg PO DAILY 09/28/18 10/17/18 History vortioxetine [Trintellix] 10 mg PO DAILY 09/28/18 10/17/18 History Patient History Medical History ASCVD (arteriosclerotic cardiovascular disease) (Chronic) Cervical disc disorder (Chronic) Dyslipidemia (Chronic) Gastroparesis (Chronic) Lumbar disc herniation (Chronic) Major depressive disorder (Chronic) Migraine headache with aura (Chronic) Obstructive sleep apnea (Chronic) Sarcoidosis (Suspected) Diabetes (Chronic) HTN (hypertension) (Chronic) Heart disease (Chronic) Heart attack (Resolved) Surgical History H/O total hysterectomy History of arthroscopic knee surgery History of carpal tunnel surgery History of tonsillectomy and adenoidectomy Status post trigger finger release Social History Current Living Situation: Spouse Other Information That Helps Us Care for You: No Feels Safe at Home: No Is there a partner from a previous relationship who is making you feel unsafe now?: No Any Concerns about Your Family Situation: No Would You Like to Speak to Someone About Your Situation: No Safety Concerns: Feels Safe At This Time Smoking Status: Current some day smoker Tobacco Type: cigarettes Cigarettes per Day: 1/2 pack Do You Dip or Chew Tobacco: No Second Hand Exposure: No Tobacco Cessation Education Requested by Patient: No Hx Alcohol Use: Yes Alcohol type: wine Alcohol Intake Frequency: holidays/ special occasions only Hx Substance Use: No Beliefs That Will Affect Care: Jew Jew Beliefs: Hoahaoism Per patient, if is immenent would like last rights to be read Preferred Language: Albanian Communication Ability: Effective Heeler Machine Required: No Review of Systems Constitutional: no fever, no chills, no sweats, no malaise and no weakness Eyes: no diplopia and not seeing flashes Ear, Nose, Mouth, Throat: no dizziness, no nasal congestion and no dysphagia Respiratory: no cough, no dyspnea, no hemoptysis and no wheezing Cardiovascular: + chest pain (see HPI); no palpitations, no syncope and no edema Gastrointestinal: + nausea (earlier today - none at present); no heartburn, no vomiting, no dysphagia, no constipation, no diarrhea/loose stools and no blood in stools Genitourinary (Female): no dysuria, no urinary frequency, no urinary urgency and no hematuria Musculoskeletal: + back pain (chronic); no joint pain, no swelling and no myalgia Integumentary: no rash and no skin ulcer Neurologic: + headache(s) (see HPI); no numbness, no paresthesia, no seizure- like activity and no dizziness Endocrine: no polydipsia, no polyphagia and no polyuria History of diabetes - see HPI Physical Exam 2 Vital Signs (Past 24 Hours): Last Vital Signs Pulse 66 10/17/18 14:25 Resp 16 10/17/18 14:25 BP 160/83 H 10/17/18 14:25 Pulse Ox 96 10/17/18 14:25 Constitutional: WD/WN, vitals as above cooperative Eyes: + anicteric sclerae; no conjunctival abnormality ENMT: external ear and nose normal, oropharynx normal Neck: trachea midline Respiratory: normal respiratory effort; no respiratory distress and does not use accessory muscles Auscultation: lungs clear to auscultation bilaterally ( on the anterior); no rales, no rhonchi and no wheezes Cardiovascular: Rate/Rhythm: regular rate and regular rhythm Heart Sounds: no gallop and no cardiac rub Vessels: no carotid bruit Extremities: normal capillary refill; no calf tenderness and no pedal edema Gastrointestinal (Abdomen): Inspection/Auscultation: normal bowel sounds; abdomen not distended Percussion/Palpation: abdomen soft; abdomen nontender Musculoskeletal: no cyanosis or clubbing, extremities motor strength 5/5 Skin: no rashes, warm and dry Neurologic: moves all extremities; no focal motor deficits Psychiatric: Orientation: alert and oriented x 3 Affect: + anxious affect Results & Data Laboratory Results Laboratory Results - last 24 hr 10/17/18 10/17/18 10/17/18 16:26 16:26 20:12 POC Glucose 180 H Total Creatine Kinase 80 CK-MB (CK-2) 4.9 H CK/CKMB % Calc 6.1 H Troponin I 2.060 H* Hepatitis C Ab Screen Neg Medications Administered Acetaminophen (Tylenol) 650 mg PO Q4H PRN PRN Reason: Mild Pain (scale 1-3) Stop: 11/16/18 12:58 Last Admin: 10/17/18 15:47 Dose: 650 mg Amitriptyline HCl (Elavil) 20 mg PO HS BRITTNEY Stop: 11/16/18 20:59 Last Admin: 10/17/18 20:52 Dose: Not Given Hydralazine HCl (Apresoline) 10 mg PO BID [facility] Stop: 11/16/18 20:59 Last Admin: 10/17/18 20:51 Dose: Not Given Insulin Aspart (Novolog Flexpen) 0 units SC ACHS [facility] Stop: 11/16/18 20:59 Last Admin: 10/17/18 20:31 Dose: 1 units Miscellaneous (Order Awaiting Action) 1 ea N/A QS [facility] Stop: 11/16/18 15:59 Last Admin: 10/17/18 20:52 Dose: Not Given Admin: 10/17/18 16:29 Dose: Not Given Multivitamins/Minerals (Caltrate Plus) 1 tab PO BID [facility] Stop: 11/16/18 20:59 Last Admin: 10/17/18 20:51 Dose: Not Given Nitroglycerin (Nitrostat) 0.4 mg SL UD PRN PRN Reason: Chest Pain Stop: 11/16/18 13:07 Last Admin: 10/17/18 15:18 Dose: 0.4 mg Pantoprazole Sodium (Protonix) 40 mg PO BID [facility] Stop: 11/16/18 20:59 Last Admin: 10/17/18 20:52 Dose: Not Given Topiramate (Topamax) 25 mg PO BID [facility] Stop: 11/16/18 20:59 Last Admin: 10/17/18 20:52 Dose: Not Given Discontinued Medications Clopidogrel Bisulfate (Plavix) Confirm Administered Dose 300 mg .ROUTE .STK-MED ONE Stop: 10/17/18 13:01 Last Admin: 10/17/18 13:34 Dose: 300 mg Fentanyl Citrate (Fentanyl Citrate) Confirm Administered Dose 100 mcg .ROUTE .STK-MED ONE Stop: 10/17/18 09:21 Last Admin: 10/17/18 12:48 Dose: 100 mcg Fentanyl Citrate (Fentanyl Citrate) Confirm Administered Dose 100 mcg .ROUTE .STK-MED ONE Stop: 10/17/18 11:27 Last Admin: 10/17/18 12:48 Dose: Not Given Heparin Sodium (Porcine) (Heparin Iv Bolus (Jig And Fixture Builder Use Only)) Confirm Administered Dose 10,000 units .ROUTE .STK-MED ONE Stop: 10/17/18 09:19 Last Admin: 10/17/18 12:47 Dose: 11,000 units Heparin Sodium (Porcine) (Heparin Iv Bolus (Jig And Fixture Builder Use Only)) Confirm Administered Dose 10,000 units .ROUTE .STK-MED ONE Stop: 10/17/18 12:18 Last Admin: 10/17/18 12:49 Dose: Not Given Heparin Sodium/Sodium Chloride (Heparin Sod/Nss 2 Units/Ml) Confirm Administered Dose 3,000 units IV .STK-MED ONE Stop: 10/17/18 09:20 Last Admin: 10/17/18 12:15 Dose: 3,000 units Sodium Chloride (Nss 1000ml) 1,000 mls @ 100 mls/hr IV .Q10H BRITTNEY Stop: 10/17/18 19:59 Last Infusion: 10/17/18 19:21 Dose: 0 mls/hr Admin: 10/17/18 15:22 Dose: 100 mls/hr Metoprolol Tartrate (Lopressor) 2.5 mg IV NOW STA Stop: 10/17/18 15:59 Last Admin: 10/17/18 16:34 Dose: 2.5 mg Midazolam HCl (Versed) Confirm Administered Dose 2 mg .ROUTE .STK-MED ONE Stop: 10/17/18 09:19 Last Admin: 10/17/18 12:48 Dose: 6 mg Midazolam HCl (Versed) Confirm Administered Dose 2 mg .ROUTE .STK-MED ONE Stop: 10/17/18 11:27 Last Admin: 10/17/18 12:49 Dose: Not Given Nicardipine HCl (Cardene) Confirm Administered Dose 25 mg .ROUTE .STK-MED ONE Stop: 10/17/18 09:19 Last Admin: 10/17/18 12:15 Dose: 25 mg Nitroglycerin (Nitro-Bid 2%) Confirm Administered Dose 18 inch .ROUTE .STK-MED ONE Stop: 10/17/18 15:31 Last Admin: 10/17/18 15:37 Dose: 18 inch Nitroglycerin (Nitro-Bid 2%) 1 inch EXT NOW ONE Stop: 10/17/18 15:36 Last Admin: 10/17/18 15:37 Dose: Not Given Nitroglycerin/Dextrose (Nitroglycerin/D5w 100 Mcg/Ml 20ml Syringe) Confirm Administered Dose 2,000 mcg .ROUTE .STK-MED ONE Stop: 10/17/18 09:20 Last Admin: 10/17/18 12:15 Dose: 2,000 mcg
[2018-10-17] MEDS ORDERED: SODIUM CHLORIDE 0.9% 1000ML 1,000 ML IV SCH (15:00)
[2018-10-17] MEDS ORDERED: NITROGLYCERIN 2% OINTMENT 30GM TUBE ONE (15:30)
[2018-10-17] MEDS ORDERED: NITROGLYCERIN 2% OINTMENT 30GM TUBE EXT ONE (15:35)
[2018-10-17] MEDS: ACETAMINOPHEN 325 MG TAB PO PRN (15:47)
--- NOTE | 2018-10-17 15:51 | Cardiology Progress Note ---
Date of Service October 17, 2018 Assessment & Plan (1) Coronary artery disease with exertional angina: 68 year old female. Recent exertional angina, and abnormal nuclear stress 1 week ago, with reproduction of angina and abnormal ST stress EKG response. Underwent cardiac catheterization today with overlapping Chris to LAD. Had chest pain during the PCI, which was resolved post PCI. Now with recurrent 8/10 CP lying supine, BP was 179/98, then had SL nitro x 1 and 1 inch nitro paste, BP 143/83, CP "5/10" per patient , however, she does not appear ill or in distress. EKG reveals SR at 71 bpm without acute repolarization abnormalities (better than I observed during the stress test last week). Plan: Metoprolol 2.5 mg IV x 1 for further BP control. Will follow up. Subjective CC: chest pain Subjective: Pt seen in cardiology reassessment, for acute chest pain having had complex LAD PCI earlier today. Physical Exam 2 Vital Signs (Past 24 Hours): Last Vital Signs Pulse 68 10/17/18 15:31 Resp 18 10/17/18 14:45 BP 143/85 H 10/17/18 15:40 Pulse Ox 97 10/17/18 14:45 Constitutional: no acute distress Respiratory: normal respiratory effort, lungs clear to auscultation Cardiovascular: RRR, no murmur, no edema Vessels: no JVD Extremities: no edema R fem artery procedure site without hematoma
[2018-10-17] MEDS ORDERED: METOPROLOL TARTRATE 1 MG/ML VIAL IV STA (15:58)
[2018-10-17] MEDS ORDERED: GLUCOSE 40% GEL 15 GM TUBE PO PRN (17:12)
[2018-10-17] MEDS ORDERED: GLUCAGON FOR INJ 1 MG VIAL SQ PRN (17:12)
[2018-10-17] MEDS ORDERED: GLUCOSE 10 TABS/TUBE PO PRN (17:12)
[2018-10-17] MEDS ORDERED: CARBOHYDRATES FOR HYPOGLYCEMIA PO PRN (17:12)
[2018-10-17] MEDS ORDERED: DEXTROSE 50% 50 ML SYRINGE IV PRN (17:12)
[2018-10-17 17:17] LABS: Creatine Kinase MB 4.9 ng/ml (0.5-3.6); Troponin I 2.06 ng/ml (0-0.045)
--- NOTE | 2018-10-17 17:53 | Cardiac Catheterization ---
Cardiac Cath Procedure Full Procedure Date October 17, 2018 Pre-Procedure Diagnosis Pre-Procedure Diagnosis: Angina, Positive Stress Test and CAD AUC Score AUC Score: 8 Post-Procedure Diagnosis Post-Procedure Diagnosis: Severe CAD and Successful PCI Procedure(s) Performed Procedure(s) Performed: Coronary Angiography, PTCA and Drug Eluting Stent Associate Professor Of Sociology Davie Gomez MD Directional Driller(s) Jose J Estimated Blood Loss Estimated Blood Loss: None (8cc) Medication(s) Medication(s): Clopidogrel, Fentanyl, Heparin, Lidocaine 1%, Nicardipine, Nitroglycerin and Versed Summary of Findings 90% proximal LAD, calcified Moderate diffuse RCA with 60% ISR of proximal stent, and 60% mid stenosis distal to stent PCI of proximal to mid LAD with 2 BANDAR with angioplasty of diagonal Indication: Chest pain, history of coronary disease, abnormal stress test Access: 6 Fr radial artery Catheters: EBU 3.75 guide Findings: For full details of patient's coronary angiography please cath report dictated by Dr. Morales. Briefly, patient found to have severe, calcified 90% proximal to mid LAD just prior to bifurcation with diagonal. Decision to proceed with PCI. -- PCI -- Antithrombotic therapy: Heparin, clopidogrel Procedure: Left main cannulated with EBU 3.75 guide Shop Estimator 50 wire passed across lesion into distal LAD Whisper wire passed into diagonal Proximal LAD lesion predilated with 2.0 compliant balloon Ostium of diagonal predilated with 2.0 compliant balloon Dilated LAD lesion stented with 2.5 x 12 mm Gans drug-eluting stent Diagonal rewired with whisper wire Stent post-dilated with 2.5 noncompliant balloon to high atmospheres Diagonal ostium/stent struts dilated with 1.5, 2.0 balloon Kissing balloon inflation of LAD/diagonal with 2.5 NC in LAD, 2.0 compliant in diagonal LAD stent postdilated again with 3.0 noncompliant balloon to high atmospheres, still residual 30% stenosis Post stent dilation questionable dissection involving aneurysmal segment at proximal end of placed stent. Second BANDAR placed proximal to first stent overlapping in aneurysmal segment (2.75 x 8 mm Gans). Postdilated with 3.0 NC balloon IC vasodilators administered for spasm Post procedure JACKIE 3 flow, stent subtotally expanded with mild to moderate residual stenosis and no residual apparent cardiac complications. Arterial Closure: Angio-Seal Summary: 1. Successful PCI of proximal LAD/diagonal bifurcation with 2 overlapping stents in LAD (2.75 x 8, 2.5 x 12 Gans; postdilated with 3.0 NC). 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 Continue statin, and ASCVD risk factor modification Consult cardiac Rehab Hemodynamics Rest Ao:: 153/71/104 Final Ao: 147/76/103 LV: 149/13 Recommendations Recommendations: PCI without planned CABG Specimens Specimens: None Radiation Exposure (mGy) 3750 Contrast (mls) 200 Fluids (cc crystalloids) Fluids (cc crystalloids): 323 Drains Drains: none Anesthesia Moderate sedation. 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 Cardiac Status Clinical evaluation leading to the procedure CAD Presenation: Positive Stress Test Anginal Classification: CCS III Heart Failure: No Cardiogenic Shock within 24 Hours: No Cardiac Arrest within 24 Hours: No Imaging Studies Past 6 Months: Yes Stress Studies Past 6 Months: No Diagnostic Physicians Name: Carmen Status: Elective Closure Device Percutaneous Entry Location: Radial Closure Device: Radial Band Recommendations: PCI without planned CABG PCI Indication: + Stress Test Lesion Segment Name: proximal LAD Culprit Artery: Yes Stenosis Prior to Rx (%): 90 Chronic Total Occlusion: No IVUS: No FFR: No Pre-Procedure JACKIE Flow: 3 Previously Treated Lesion: No Lesion Complexity: High/C Lesion Length (mm): 12 Thrombus Present: No Bifurcation Lesion: Yes Guidewire Across Lesion: Stenosis Post-Procedure (%): 30 Post-Procedure JACKIE Flow: 3 Devices(s) Deployed: Yes Yes Intraprocedure Events Significant Disection: No Perforation: No
[2018-10-17] MEDS: INSULIN ASPART 100 UNITS/ML 3 ML PEN SC SCH (20:31)
[2018-10-17] MEDS: HydrALAZINE 10 MG TAB PO SCH (20:51)
[2018-10-17] MEDS: CALCIUM 600MG + VIT D 400 IU TAB PO SCH (20:51)
[2018-10-17] MEDS: AMITRIPTYLINE HCL 10 MG TAB PO SCH (20:52)
[2018-10-17] MEDS: TOPIRAMATE 25 MG TAB PO SCH (20:52)
[2018-10-17] MEDS: PANTOprazole 40 MG TAB PO SCH (20:52)
[2018-10-17] MEDS ORDERED: NON-FORMULARY MEDICATION (Melatonin [Melatonin] 3 MG) PO SCH (21:00)
[2018-10-17 22:20] LABS: Creatine Kinase MB 25.8 ng/ml (0.5-3.6)
[2018-10-18] MEDS: ACETAMINOPHEN 325 MG TAB PO PRN ×2 (00:09→06:18)
[2018-10-18] MEDS ORDERED: POTASSIUM CHLORIDE 20 MEQ TABCR PO ONE (04:15)
[2018-10-18 05:54] LABS: BUN Creatinine Ratio 18.4 (10-20); Blood Urea Nitrogen 15 mg/dl (7-18); Calcium 8.2 mg/dl (8.5-10.1); Carbon Dioxide 23 mmol/L (21-32); Chloride 109 mmol/L (98-107); Creatine Kinase MB 31.8 ng/ml (0.5-3.6); Creatinine Clr Calc Pharmacy 53.7 ml/min; Est GFR (Non-African American) 72.5; Glucose 104 mg/dl (70-99); Magnesium 2.1 mg/dl (1.8-2.4); Potassium 3.8 mmol/L (3.5-5.1); Sodium 137 mmol/L (136-145)
[2018-10-18 06:05] LABS: Hematocrit (blood only) 31.8 % (37-47); Hemoglobin 10.8 g/dL (12.0-16.0); Mean Corpuscular Volume 87.1 fL (80-100); Mean Platelet Volume 10.1 fL (7.4-10.4); Platelet Count 171 K/uL (130-400); RDW Coefficient of Variation 13.5 % (11.5-14.5); RDW Standard Deviation 43.6 fL (36.4-46.3); Red Blood Count 3.65 M/uL (4.2-5.4)
[2018-10-18] MEDS: INSULIN ASPART 100 UNITS/ML 3 ML PEN SC SCH ×4 (07:59→20:31)
[2018-10-18] MEDS: PANTOprazole 40 MG TAB PO SCH ×2 (08:01→20:30)
[2018-10-18] MEDS: VENLAFAXINE HCL XR 75 MG CAPXR PO SCH (08:02)
[2018-10-18] MEDS: METOPROLOL SUCC 25MG EXT REL TAB PO SCH (08:02)
[2018-10-18] MEDS: CALCIUM 600MG + VIT D 400 IU TAB PO SCH ×2 (08:03→20:31)
[2018-10-18] MEDS: HydrALAZINE 10 MG TAB PO SCH ×2 (08:03→20:31)
[2018-10-18] MEDS: CLOPIDOGREL BISULFATE 75 MG TAB PO SCH (08:03)
[2018-10-18] MEDS: METOPROLOL SUCC 50MG EXT REL TAB PO SCH (08:03)
[2018-10-18] MEDS: ROSUVASTATIN CALCIUM 20 MG TAB PO SCH (08:03)
[2018-10-18] MEDS: ASPIRIN 81 MG ECTAB PO SCH (08:03)
[2018-10-18] MEDS: TOPIRAMATE 25 MG TAB PO SCH ×2 (08:04→20:30)
[2018-10-18] MEDS: TRAMADOL HCL 50 MG TABLET PO PRN (08:14)
--- NOTE | 2018-10-18 10:54 | Cardiology Progress Note ---
Date of Service October 18, 2018 Assessment & Plan (1) Coronary artery disease with exertional angina: Recurrent episode of angina noted this a.m. Currently pain-free. No ischemic changes per ECG. (2) Status post insertion of drug-eluting stent into left anterior descending (LAD) artery for coronary artery disease: Heavily calcified vessel status post drug-eluting stent implantation x2 with balloon angioplasty of a diagonal branch vessel. Anginal symptoms resolving. Currently pain-free. Repeat troponin and resting 2D transthoracic echocardiogram. Will observe for additional 24 hours due to presence of recurrent chest pain this morning. Continue aspirin, Plavix, statin, and beta- do as previously ordered. Consider addition of isosorbide monohydrate with recurrent symptoms. (3) Hypertension: Controlled. Nitropaste discontinued. Continue current medications. (4) PVC (premature ventricular contraction): Electrolytes stable. Monitor telemetry. Subjective Patient seen and examined at the bedside. Status post drug-eluting stent implantation x 2 to the proximal and mid left anterior descending artery 10/17/18. Balloon angioplasty of diagonal branch vessel. Patient reported chest discomfort yesterday afternoon relieved with topical nitrates. Occasional PVCs, PVC triplet, as well as short 5 beat daren of AIVR noted on telemetry overnight. Brief episode of chest discomfort reported this a.m. which has spontaneously resolved. Nitropaste discontinued. Troponin trending upward to 11 last evening. No repeat this a.m. A.m. ECG demonstrates sinus rhythm without acute ST changes. Resting 2D transthoracic echocardiogram pending at this time. Review of Systems All systems reviewed & are unremarkable except as noted in HPI & below Physical Exam Vital Signs (Past 24 Hours): Last Vital Signs Temp 37.1 C 10/18/18 07:13 Pulse 75 10/18/18 07:13 Resp 18 10/18/18 07:13 BP 107/68 10/18/18 07:13 Pulse Ox 97 10/18/18 07:13 Physical Exam: General: NAD, AAO x3, well nourished. HEENT: Normocephalic. Atraumatic. Conjunctiva pink, no scleral icterus. Neck: No carotid bruits, the carotid upstrokes are brisk. No JVD. No HJR Heart: Regular normal S-1 and S-2 no S-3 or S-4 gallop. No murmurs or rub appreciated. PMI is not displaced. No RV heave. Lungs: Clear bilateral without rales , rhonchi, or wheeze. Abdomen: Normal bowel sounds. Soft. Nontender. No masses or organomegaly. No abdominal bruits. Extremities: Mild right sided groin ecchymosis. No hematoma. + Tender to palpation. No clubbing, cyanosis, or edema. Pulses: radial=2/4, Dorsalis pedis =2/4, posterior tibial=2/4. Neuro: Cranial nerves grossly intact. No focal motor deficit. Results & Data Laboratory Results Laboratory Results - last 24 hr 10/17/18 10/17/18 10/17/18 11:23 11:55 16:26 WBC RBC Hgb Hct MCV MCH MCHC RDW Std Deviation RDW Coeff of Neisha Plt Count MPV Activ Coag Time Kaolin 246 H 257 H Sodium Potassium Chloride Carbon Dioxide Anion Gap BUN Creatinine Est Cr Clr Drug Dosing Est GFR ( Amer) Est GFR (Non-Af Amer) BUN/Creatinine Ratio Glucose POC Glucose Calcium Magnesium Total Creatine Kinase 80 CK-MB (CK-2) 4.9 H CK/CKMB % Calc 6.1 H Troponin I 2.060 H* Hepatitis C Ab Screen 10/17/18 10/17/18 10/17/18 16:26 20:12 21:52 WBC RBC Hgb Hct MCV MCH MCHC RDW Std Deviation RDW Coeff of Neisha Plt Count MPV Activ Coag Time Kaolin Sodium Potassium Chloride Carbon Dioxide Anion Gap BUN Creatinine Est Cr Clr Drug Dosing Est GFR ( Amer) Est GFR (Non-Af Amer) BUN/Creatinine Ratio Glucose POC Glucose 180 H Calcium Magnesium Total Creatine Kinase 261 H CK-MB (CK-2) 25.8 H CK/CKMB % Calc 9.9 H Troponin I Hepatitis C Ab Screen Neg 10/18/18 10/18/18 10/18/18 02:41 02:41 07:17 WBC 8.70 RBC 3.65 L Hgb 10.8 L Hct 31.8 L MCV 87.1 MCH 29.6 MCHC 34.0 RDW Std Deviation 43.6 RDW Coeff of Neisha 13.5 Plt Count 171 MPV 10.1 Activ Coag Time Kaolin Sodium 137 Potassium 3.8 Chloride 109 H Carbon Dioxide 23 Anion Gap 5.0 BUN 15 Creatinine 0.83 Est Cr Clr Drug Dosing 53.7 Est GFR ( Amer) 84.0 Est GFR (Non-Af Amer) 72.5 BUN/Creatinine Ratio 18.4 Glucose 104 H POC Glucose 141 H Calcium 8.2 L Magnesium 2.1 Total Creatine Kinase CK-MB (CK-2) 31.8 H CK/CKMB % Calc Not Reportable Troponin I 11.600 H* Hepatitis C Ab Screen
--- NOTE | 2018-10-18 11:02 | Hospitalist Progress Note ---
Date of Service October 18, 2018 Assessment & Plan (1) Status post insertion of drug-eluting stent into left anterior descending (LAD) artery for coronary artery disease: (2) Coronary artery disease with exertional angina: This is a 68 y/o female with a history of ASCVD w/ hx NE, DM2 with g astroparesis, HTN, sarcoidosis, dyslipidemia, who was [facility] after undergoing diagnostic converted to therapeutic catheterization with stent x2 placement. -PCI with drug-eluting stent performed by Dr. Gomez yesterday; required placement of a second stent because of coronary artery dissection -Had some pain after the procedure without associated EKG changes -Troponin elevation of 2.06, 11.60 following procedure. Repeat pending -Continue monitoring on telemetry -Pain-free at time of my assessment -Management per primary service (3) Hypertension: Normotensive -Continue hydralazine, Toprol (4) Depression: Continue Effexor while admitted -Trintellix is currently on hold as non-formulary (5) Diabetes mellitus: A1c of 7.0 on 10/13/18. Pt typically well-controlled on Metformin,which is currently being held - Diabetic diet - [facility] ACHS with sliding scale insulin coverage PCP: Luis Dispo: Plan to return home once medically stable. Patient seen in collaboration with Dr. Reed. Please see addendum. Supervising Physician Co-Signing Physician Notes Attending addendum: Seen and examined, care coordinated with Milana Cano PA-C 68-year-old female status post cardiac cath yesterday status post drug-eluting stent placement pt is very comfortable, denies of any anginal symptoms, no shortness of breath, no dyspnea on exertion no orthopnea Vitals stable Continue management as per cardiology Elevated troponin possible secondary to post procedure,-status post cardiac cath stent placement Patient does not have any chest pain, no anginal symptoms, no evidence of ongoing cardiac ischemia Continue to monitoring telemetry Annie Reed MD Subjective Patient seen and examined. Feeling better this morning. Has not experienced chest heaviness since last evening. Tolerating breakfast well. No palpitations, SOB or edema. Constitutional: no fever and no chills Eyes: no worsening vision Ear, Nose, Mouth, Throat: no dysphagia Respiratory: no cough, no dyspnea, no pain on inspiration and no wheezing Cardiovascular: no chest pain, no radiating jaw, neck or arm pain, no dyspnea on exertion, no palpitations and no edema Gastrointestinal: no nausea, no vomiting and no change in stools Genitourinary (Female): no dysuria and no hematuria Integumentary: no change in skin color Physical Exam Vital Signs (Past 24 Hours): Last Vital Signs Temp 37.1 C 10/18/18 07:13 Pulse 75 10/18/18 07:13 Resp 18 10/18/18 07:13 BP 107/68 10/18/18 07:13 Pulse Ox 97 10/18/18 07:13 Physical Exam: General Appearance: WD/WN, no apparent distress Head: normocephalic, atraumatic Eyes: normal inspection, PERRL, EOMI ENT: hearing grossly normal, pharynx normal (moist mucous membranes) Neck: supple, no JVD, no adenopathy Respiratory/Chest: lungs clear to auscultation. No wheezes, rales or rhonci. No respiratory distress or accessory muscle use Cardiovascular: regular rate, rhythm, no murmur, normal peripheral pulses, no BLE edema Abdomen/GI: normal bowel sounds, soft, non-tender to palpation Extremities/Musculoskelatal: normal inspection, no calf tenderness, normal capillary refill. + no hematoma right wrist Neurologic/Psych: alert, normal mood/affect, oriented x 3 Skin: normal color, warm/dry Results & Data Laboratory Results Short CBC 10/18/18 Range/Units 02:41 WBC 8.70 (4.8-10.8) K/uL Hgb 10.8 L (12.0-16.0) g/dL Hct 31.8 L (37-47) % Plt Count 171 (130-400) K/uL BMP 10/18/18 02:41 Sodium 137 Potassium 3.8 Chloride 109 H Carbon Dioxide 23 BUN 15 Creatinine 0.83 Glucose 104 H Calcium 8.2 L Cardiac Enzymes 10/17/18 10/17/18 10/18/18 Range/Units 16:26 21:52 02:41 Total Creatine Kinase 80 261 H (26-192) U/L CK-MB (CK-2) 4.9 H 25.8 H 31.8 H (0.5-3.6) ng/ml Troponin I 2.060 H* 11.600 H* (0-0.045) ng/ml
[2018-10-18] MEDS: AMITRIPTYLINE HCL 10 MG TAB PO SCH (20:31)
[2018-10-19 05:57] LABS: Hematocrit (blood only) 36.5 % (37-47); Hemoglobin 12.3 g/dL (12.0-16.0); Mean Corpuscular Hgb Conc 33.7 g/dL (32-36); Mean Corpuscular Volume 87.1 fL (80-100); Platelet Count 198 K/uL (130-400); RDW Coefficient of Variation 13.5 % (11.5-14.5); RDW Standard Deviation 43.2 fL (36.4-46.3); Red Blood Count 4.19 M/uL (4.2-5.4); White Blood Count 7.88 K/uL (4.8-10.8)
[2018-10-19 06:48] LABS: BUN Creatinine Ratio 14.4 (10-20); Calcium 8.8 mg/dl (8.5-10.1); Creatinine Clr Calc Pharmacy 47.9 ml/min; Est GFR (African American) 73.2; Est GFR (Non-African American) 63.1; Potassium 3.8 mmol/L (3.5-5.1)
[2018-10-19] MEDS: ROSUVASTATIN CALCIUM 20 MG TAB PO SCH (08:19)
[2018-10-19] MEDS: ASPIRIN 81 MG ECTAB PO SCH (08:19)
[2018-10-19] MEDS: METOPROLOL SUCC 25MG EXT REL TAB PO SCH (08:20)
[2018-10-19] MEDS: HydrALAZINE 10 MG TAB PO SCH (08:20)
[2018-10-19] MEDS: TOPIRAMATE 25 MG TAB PO SCH (08:20)
[2018-10-19] MEDS: PANTOprazole 40 MG TAB PO SCH (08:21)
[2018-10-19] MEDS: METOPROLOL SUCC 50MG EXT REL TAB PO SCH (08:21)
[2018-10-19] MEDS: VENLAFAXINE HCL XR 75 MG CAPXR PO SCH (08:22)
[2018-10-19] MEDS: CALCIUM 600MG + VIT D 400 IU TAB PO SCH (08:22)
[2018-10-19] MEDS: CLOPIDOGREL BISULFATE 75 MG TAB PO SCH (08:22)
[2018-10-19] MEDS: TRAMADOL HCL 50 MG TABLET PO PRN (08:24)
[2018-10-19] MEDS: INSULIN ASPART 100 UNITS/ML 3 ML PEN SC SCH (08:26)
--- NOTE | 2018-10-19 10:33 | Cardiology Progress Note ---
Date of Service October 19, 2018 Assessment & Plan (1) Coronary artery disease with exertional angina: Patient recovering well. No recurrent angina overnight. Troponin trending downward. (2) Status post insertion of drug-eluting stent into left anterior descending (LAD) artery for coronary artery disease: Heavily calcified vessel status post drug-eluting stent implantation x2 with balloon angioplasty of a diagonal branch vessel. Anginal symptom have resolved. Pain-free for 24 hours. Focal apical wall motion abnormality noted with preserved LV systolic function. Continue aspirin, Plavix, statin, and beta-do as previously ordered. Repeat resting 2D transthoracic echocardiogram in the outpatient setting in 6-12 weeks. (3) Hypertension: Controlled. Continue current medications. (4) PVC (premature ventricular contraction): PVCs less frequent over the last 24 hours. Continue beta-do. Subjective Patient seen and examined at the bedside. No recurrent chest heaviness or tightness overnight. Reports fleeting episodes of "sensation" on the left side of her chest. The sensations last 1-2 seconds. No palpitations, lightheadedness, dizziness, syncope, near syncope. Occasional PVCs noted on telemetry otherwise sinus rhythm. No sustained dysrhythmias. Tolerating medications currently. Troponin trending down. present at bedside. Offers no other concerns/complaints at this time Review of Systems All systems reviewed & are unremarkable except as noted in HPI & below Physical Exam Vital Signs (Past 24 Hours): Last Vital Signs Temp 37 C 10/19/18 07:08 Pulse 75 10/19/18 07:08 Resp 18 10/19/18 07:08 BP 136/85 10/19/18 07:08 Pulse Ox 93 10/19/18 07:08 Physical Exam: General: NAD, AAO x3, well nourished. HEENT: Normocephalic. Atraumatic. Conjunctiva pink, no scleral icterus. Neck: No carotid bruits, the carotid upstrokes are brisk. No JVD. No HJR Heart: Regular normal S-1 and S-2 no S-3 or S-4 gallop. No murmurs or rub appreciated. PMI is not displaced. No RV heave. Lungs: Clear bilateral without rales , rhonchi, or wheeze. Abdomen: Normal bowel sounds. Soft. Nontender. No masses or organomegaly. No abdominal bruits. Extremities: Mild right sided groin ecchymosis. No hematoma. + Tender to palpation. No clubbing, cyanosis, or edema. Pulses: radial=2/4, Dorsalis pedis =2/4, posterior tibial=2/4. Neuro: Cranial nerves grossly intact. No focal motor deficit.
--- NOTE | 2018-10-19 10:46 | Discharge Summary ---
Date of Service October 19, 2018 Admission HPI Patient presented for elective cardiac catheterization with coronary angiography. Catheterization ordered due to abnormal nuclear stress testing suggesting ischemia. History of prior RCA stent. Class III exertional anginal symptoms noted. Principal Diagnosis Principal Diagnosis Coronary artery disease status post drug-eluting stent implantation x2 to the proximal left anterior descending artery. Discharge Exam Vital signs stable. Mild right groin ecchymosis without hematoma. Heart regular with occasional ectopy. No murmurs. Lungs clear without rales rhonchi or wheeze. Extremities without edema. Discharge Data Allergies Allergy/AdvReac Type Severity Reaction Status Date / Time Penicillins Allergy Intermediate HIVJOSE ANGEL,SWELL Verified 09/28/18 08:59 ING [place] Inhibitors AdvReac Unknown cough Verified 10/17/18 13:19 ARB-Angiotensin Receptor AdvReac Unknown ELEVATED K Verified 10/17/18 13:19 Antagonist levofloxacin AdvReac Unknown JOINT PAIN Verified 10/17/18 13:19 Consultations 10/17/18 13:07 Consult Cardiac Rehabilitation Routine 10/17/18 17:43 Consult Physician Routine Procedures Performed Operation Date: 10/17/18 09:30 Actual Procedures p Cath, Left with Cors and Vent - Dexter Morales DO yolanda Ultrasound Vascular Access - Dexter Morales DO s Cineradiography w/Routine Exam - Jim Gomez MD s Drug Eluting Stent SGl Vessel - Jim Gomez MD Ordered Studies 10/17/18 06:42 CL Cath Imgs for PACS use only Routine Hospital Course (1) Status post insertion of drug-eluting stent into left anterior descending (LAD) artery for coronary artery disease: (2) Coronary artery disease with exertional angina: (3) PVC (premature ventricular contraction): Total Time Total Time Spent Total Time Spent (In Minutes): 40 minutes Total Time Includes: Examination of the Patient, Discharge Planning and Medication Reconciliation Discharge Plan Discharge Items Patient Disposition: Home - Self-Care Reason For Visit: Positive Nuclear Stress Test Discharge Diagnosis: Coronary artery disease status post drug-eluting stent implantation x2 to the left anterior descending artery. Discharge Goals: Decrease discomfort and Improve disease control Activity: Per 'Additional Instructions' section Non-emergency contact: Primary Care Provider and Manager Inventory Management Call non-emergency contact if: you have any medication questions, your symptoms worsen and your pain is worsening Follow-up/Referrals: Brent Smith [Primary Care Provider] - Diet: Carb Consistent or DM2 Addtl Provider Instructions: ACTIVITY RECOMMENDATIONS: Excess manipulation of the wrist should be avoided for the next 24-48 hours. * No lifting over 2 pounds (approximately a 1/2 gallon of milk) with the utilized arm for 24 hours. * No strenuous activity such as bowling or tennis for 3 days. * Keep the site of the procedure covered with a bandage for 24 hours. *You may shower the day after the procedure. Do not take a tub bath or submerge the puncture site in water for the next 3 days. *Do not operate any motorized equipment for 3 days. SPECIAL CARE INSTRUCTIONS: The site may be slightly bruised and sore following your procedure. Should any of the following occur, contact the Dr. who performed your procedure. 1. Redness/inflammation, swelling, chills, or fever, or colored drainage at procedure site within 3-7 days after your procedure. 2. Coldness, discoloration, ongoing numbness, severe pain, or swelling. Expect mild tingling of hand and tenderness at the puncture site for up to three days. If this persists beyond three days, or other symptoms develop, notify the Dr. who performed your procedure. BLEEDING: If the procedure site on your wrist begins to bleed, do not panic 1. Place 1 or 2 fingers firmly just slightly above the insertion site to stop the bleeding. You may be able to feel your pulse as you hold pressure. 2. Lift your finger after 5 minutes to see if the bleeding has stopped. 3. Once the bleeding has stopped, gently wipe the wrist area clean with a bandage. * If the bleeding from your wrist does not stop after 10 minutes, or if there is a large amount of bleeding or spurting, call 911 (do not drive yourself to the hospital). SKIN IRRITATION: * You may experience some redness and/or swelling in the area where radiation was administered. If any skin irritation occurs, please contact your family physician. FOLLOW UP VISIT: Keep any scheduled doctor appointments. Prescriptions: Continued metformin 500 mg Tablet 500 mg PO BIDM RF: 0 hydralazine 10 mg Tablet 10 mg PO BID RF: 0 venlafaxine [Effexor XR] 75 mg Capsule,Extended Release 24hr 150 mg PO DAILY RF: 0 metoprolol succinate [Toprol XL] 100 mg Tablet Extended Release 24 Hr 100 mg PO QAM RF: 0 clonazepam [Klonopin] 1 mg Tablet 1 mg PO HS PRN (Reason: Anxiety) RF: 0 topiramate [Topamax] 25 mg Tablet 25 mg PO BID RF: 0 melatonin 3 mg Tablet 3 mg PO HS RF: 0 clopidogrel [Plavix] 75 mg Tablet 75 mg PO DAILY RF: 0 aspirin 81 mg Tablet,Delayed Release (Dr/Ec) 81 mg PO DAILY RF: 0 tramadol 50 mg Tablet 25 mg PO Q8 PRN (Reason: Pain) RF: 0 nystatin-triamcinolone 100,000-0.1 unit/gram-% Ointment 1 applic TOPICAL TID RF: 0 amitriptyline 10 mg Tablet 20 mg PO HS RF: 0 pantoprazole [Protonix] 40 mg Tablet,Delayed Release (Dr/Ec) 40 mg PO BID RF: 0 nitroglycerin [Nitrostat] 0.4 mg Tablet, Sublingual 0.4 mg Sublingual DIRECTED PRN (Reason: Chest Pain) RF: 0 metoprolol succinate [Toprol XL] 25 mg Tablet Extended Release 24 Hr 25 mg PO QAM RF: 0 rosuvastatin [Crestor] 40 mg Tablet 40 mg PO DAILY RF: 0 calcium carbonate-vitamin D3 [Calcium 600 + D(3)] 600 mg(1,500mg) -400 unit Tablet 1 tab PO BID RF: 0 vortioxetine [Trintellix] 10 mg Tablet 10 mg PO DAILY RF: 0 Midrin 2 cap PO DIRECTED MDD 5 RF: 0 Stand-Alone Forms: [facility] Discharge Orders: Discharge Order (Routine); Ordered 10/19/18 Ordered By: Dxeter Morales Admission Data Admit Date/Time: 10/17/18 11:03 Attending Provider: Dexter Morales Admit Provider: Dexter Morales Primary Care Provider: Brent Smith Other Providers: Cam Young Ayesha H Service: Telemetry Other Pending Studies at Discharge: Yes Studies:: Repeat 2D echo in 6-12 weeks.
== END 2018-10-19 11:40 | disposition home or self-care (01) ==
LOC: 2S 07:56 → CC 07:56

== ENCOUNTER 2019-01-31 14:45 | Observation (INO) ==
--- OUTSIDE RECORDS SUMMARY | 2019-01-31 14:48 | External Medical Summary | Continuity of Care Document ---
:1950 Author Name Conrado Suarez, Provider Address Unavailable Unavailable , Care Team Providers Name Role Phone Davie [email or web address] Mccoy Unavailable Unavailable Problems Active medical history not documented Allergies and Adverse Reactions Allergy history not documented Medications Medications not documented Procedures Procedures not documented Immunizations Immunizations not documented Plan of Treatment Planned Observations Planned Goals not documented Results No Known Results Results not documented
[2019-01-31 15:21] LABS: Basophils # (auto) 0.03 K/uL (0-0.2); Basophils % (auto) 0.4 %; Eosinophils # (auto) 0.02 K/uL (0-0.5); Eosinophils % (auto) 0.3 %; Hematocrit (blood only) 32.7 % (37-47); Hemoglobin 11.5 g/dL (12.0-16.0); Immature Granulocytes # (auto) 0.01 K/uL (0.00-0.02); Immature Granulocytes % (auto) 0.1 %; Lymphocytes % (auto) 33.6 %; Mean Corpuscular Hgb Conc 35.2 g/dL (32-36); Mean Corpuscular Volume 84.5 fL (80-100); Mean Platelet Volume 10.3 fL (7.4-10.4); Monocytes # (auto) 0.69 K/uL (0.11-0.59); Monocytes % (auto) 9.3 %; Neutrophils % (auto) 56.3 %; Platelet Count 201 K/uL (130-400); RDW Coefficient of Variation 13.7 % (11.5-14.5); RDW Standard Deviation 41.8 fL (36.4-46.3); Red Blood Count 3.87 M/uL (4.2-5.4); White Blood Count 7.45 K/uL (4.8-10.8)
[2019-01-31 15:40] LABS: Albumin Level 3.7 gm/dl (3.4-5.0); BUN Creatinine Ratio 16.5 (10-20); Calcium 9.5 mg/dl (8.5-10.1); Creatinine Clr Calc Pharmacy 52.4 ml/min; Est GFR (African American) 81.6; Est GFR (Non-African American) 70.4; Potassium 4.6 mmol/L (3.5-5.1)
--- NOTE | 2019-01-31 15:46 | XRay Report ---
SINGLE VIEW CHEST CLINICAL HISTORY: Atypical chest pain. FINDINGS: An AP, portable, upright chest radiograph is compared to study dated 01/06/2011 and correlat ed with chest CT dated 03/03/2009. The examination is degraded by portable technique and apical lordot ic positioning. The cardiomediastinal silhouette is unremarkable. Chronic interstitial thickening is similar to previous. A calcific granuloma is noted in the right lower lung. There is no airspace con solidation or large pleural effusion. Mild bibasilar scarring/atelectasis is observed. No pneumothora x is seen. The skeletal structures are osteopenic. The bony thorax is grossly intact. IMPRESSION: No acute cardiopulmonary abnormality. Electronically signed by: Jovanni Barrios M.D. 01/31/2019 3:44 PM
[2019-01-31 15:47] LABS: Bilirubin,Total 0.2 mg/dl (0.2-1); Globulin 3.8 gm/dl (2.5-4.0); Total Protein 7.5 gm/dl (6.4-8.2); Troponin I 0.173 ng/ml (0-0.045)
--- NOTE | 2019-01-31 18:02 | History & Physical Report ---
Date of Service January 31, 2019 Assessment & Plan (1) Chest pain: Hx CAD s/p PCI RCA in 2007, 2 BANDAR to LAD in 09/2018 and 1 BANDAR to LAD on 01/29/[address] Hobbs at [facility]. Pt reports was doing well until today at 1:30 PM she was sitting playing on her tablet when she started with anterior chest pain with radiation to left arm left arm numbness with associated nausea, diaphoresis, shortness of breath and dizziness. Patient took 2 sublingual nitroglycerin and 4 baby aspirin at home with slight relief of chest pain. EMS gave 1 spray nitroglycerin and patient reports since has been chest pain-free and symptom free since and remains symptom free in ER. In ER afebrile, P:73, BP: 111/69--167/84, R: 18, 98% on RA No leukocytosis, Troponin: 0.17, no acute EKG changes noted. CXR: no acute changes. (No troponin results found on review during recent admission at [facility] on 01/29/19) Chest Pain DDX: revascularization pain s/p stent on 01/29/19, stent restenosis . -Monitor Vitals -Repeat EKG in am -Will trend troponin -Continue ASA, metoprolol, statin, Plavix -Nitro paste -Repeat EKG for CP -Low threshold to start heparin if increasing troponin or recurrent CP -Cardiology consult - call center specialist aware and recommends nitropaste (2) Diabetes: A1c: 7.0 on 10/13/18 -Hold metformin -NovoLog sliding scale per protocol (3) HTN (hypertension): -Continue metoprolol (4) Dyslipidemia: -Continue statin (5) Depression: -Continue Effexor, Trintellix (6) Tobacco use: -Smoking cessation encouraged. Patient reports did not smoke today and is motivated to quit. -Nicotine patch DVT Prophylaxis -Heparin SQ Full Code as per discussion with pt Follows with Dr Smith for routine care Pt was seen and care coordinated with Dr Venegas. See addendum History of Present Illness Chief Complaint: CP Primary Care Provider: Brent Smith MD Pt is 68 y/o M with PMH CAD s/p PCI RCA in 2007, 2 BANDAR to LAD in 09/2018 and 1 BANDAR to LAD on 01/29/19, HTN, dyslipidemia, DM II, depression, anxiety, tobacco use presented to ER via EMS for CP. Patient with recent cardiac cath by Dr. Hobbs at [facility] on 01/29/19 and had BANDAR to LAD. Patient was discharged 01/30/2019 and she reports that she was feeling well and not having any chest pain or shortness of breath. Patient states today at 1:30 PM she was sitting playing on her tablet when she started with anterior chest pain with radiation to left arm left arm numbness with associated nausea, diaphoresis, shortness of breath and dizziness. Patient took 2 sublingual nitroglycerin and 4 baby aspirin at home with slight relief of chest pain. EMS arrived and patient was given 1 spray nitroglycerin and patient reports since has been chest pain-free and no longer having any SOB, dizziness, nausea or diaphoresis. Patient has remained chest pain-free in ER. Patient states has not smoked cigarettes today and started using nicotine patch today. Denies fever/chills, V/D/C, ESTEVES, syncope, vision changes, neck pain, orthopnea, palpitations, cough, sore throat, choking, otalgia, rhinorrhea, abdominal pain, weakness, extremity weakness, increased extremity edema, rashes, urinary symptoms. Allergies Allergy/AdvReac Type Severity Reaction Status Date / Time Penicillins Allergy Intermediate HIVES,SWELL Verified 01/31/19 15:26 ING [place] Inhibitors AdvReac Unknown cough Verified 01/31/19 15:26 ARB-Angiotensin Receptor AdvReac Unknown ELEVATED K Verified 01/31/19 15:26 Antagonist levofloxacin AdvReac Unknown JOINT PAIN Verified 01/31/19 15:26 losartan AdvReac Unknown hyperkalemi Verified 01/31/19 15:27 a Home Medications Home Medications Medication Instructions Recorded Confirmed Type Caltrate with Vitamin D3 1 tab PO BID 01/31/19 01/31/19 History amitriptyline 20 mg PO HS 01/31/19 01/31/19 History aspirin [Aspir-81] 81 mg PO DAILY 01/31/19 01/31/19 History clonazepam [Klonopin] 1 mg PO HS PRN 01/31/19 01/31/19 History clopidogrel [Plavix] 75 mg PO DAILY 01/31/19 01/31/19 History conjugated estrogens [Premarin] 1 applic VAGINAL 2XWK 01/31/19 01/31/19 History indomethacin 50 mg PO TID PRN 01/31/19 01/31/19 History melatonin 3 mg PO HS 01/31/19 01/31/19 History metformin [Glucophage] 500 mg PO BID 01/31/19 01/31/19 History metoprolol succinate [Toprol XL] 25 mg PO PM 01/31/19 01/31/19 History metoprolol succinate [Toprol XL] 100 mg PO PM 01/31/19 01/31/19 History nitroglycerin [Nitrostat] 0.4 mg SUBLINGUAL UD PRN 01/31/19 01/31/19 History nystatin-triamcinolone 1 applic TOPICAL TID PRN 01/31/19 01/31/19 History ondansetron HCl [Zofran] 4 mg PO Q8 PRN 01/31/19 01/31/19 History pantoprazole 40 mg PO BID 01/31/19 01/31/19 History polyethylene glycol 3350 [Miralax] 17 g PO DAILY PRN 01/31/19 01/31/19 History rosuvastatin [Crestor] 40 mg PO PM 01/31/19 01/31/19 History topiramate [Topamax] 50 mg PO DAILY 01/31/19 01/31/19 History tramadol 25 - 50 mg PO Q8 PRN 01/31/19 01/31/19 History venlafaxine [Effexor XR] 225 mg PO QAM 01/31/19 01/31/19 History vortioxetine [Trintellix] 10 mg PO DAILY 01/31/19 01/31/19 History Past Med/Surg History Medical History Tobacco use (Chronic) HTN (hypertension) (Chronic) Diabetes (Chronic) Dyslipidemia (Chronic) Major depressive disorder (Chronic) Migraine headache with aura (Chronic) Depression (Chronic) 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) Diabetes mellitus (Chronic) Hypertension (Chronic) ASCVD (arteriosclerotic cardiovascular disease) (Chronic) Cervical disc disorder (Chronic) Gastroparesis (Chronic) Heart disease (Chronic) Lumbar disc herniation (Chronic) Obstructive sleep apnea (Chronic) Sarcoidosis (Suspected) Heart attack (Resolved) Surgical History H/O total hysterectomy (Chronic) History of arthroscopic knee surgery (Chronic) History of carpal tunnel surgery (Chronic) History of tonsillectomy and adenoidectomy (Chronic) Status post trigger finger release (Chronic) Family History Other Diabetes Hypertension Stroke Social History Preferred Language: Belarusian Communication Ability: Effective Glass Presser Required: No Beliefs That Will Affect Care: Jainism Jainism Beliefs: mormonism Current Living Situation: Spouse current occupational status: retired Other Information That Helps Us Care for You: No Feels Safe at Home: Yes Safety Concerns: Feels Safe At This Time Smoking Status: Current every day smoker Tobacco Type: cigarettes Do You Dip or Chew Tobacco: No Second Hand Exposure: No Tobacco Cessation Education Requested by Patient: No Hx Alcohol Use: Yes Alcohol type: wine Hx Substance Use: No Review of Systems Review of Systems: All systems reviewed & are unremarkable except as noted in HPI & below Physical Exam Physical Exam: General: no acute distress, WDWN Head: normocephalic, atraumatic Eyes: PERRL, EOM's intact, conjunctiva non-injected, anicteric ENT: normal inspection external ears, nose, mucous membranes moist Neck: supple, trachea midline Lungs: clear, no respiratory distress, no wheezing/rhonchi/rales CV: RRR, no murmur, chest nontender to palpation, no JVD, no pretibial edema Abd: normal BS, soft, non-tender Ext: no cyanosis, no calf tenderness Neuro: A&O x 3, no focal deficits noted, normal affect Skin: warm, dry Results & Data Vital Signs (Past 12 Hours) Vital Signs Temp Pulse Resp BP Pulse Ox 01/31/19 17:30 67 18 167/84 H 100 01/31/19 17:17 72 19 148/85 H 100 01/31/19 17:00 63 14 134/81 99 01/31/19 16:30 67 12 125/77 98 01/31/19 16:00 70 16 114/76 98 01/31/19 15:33 98 01/31/19 15:30 68 19 113/72 98 01/31/19 15:00 70 24 110/76 99 01/31/19 14:58 36.7 C 73 18 111/69 98 Laboratory Results Short CBC 01/31/19 Range/Units 14:30 WBC 7.45 (4.8-10.8) K/uL Hgb 11.5 L (12.0-16.0) g/dL Hct 32.7 L (37-47) % Plt Count 201 (130-400) K/uL BMP 06/12/19 14:30 Sodium 139 Potassium 4.6 Chloride 109 H Carbon Dioxide 22 BUN 14 Creatinine 0.85 Glucose 142 H Calcium 9.5 Cardiac Enzymes 01/31/19 Range/Units 14:30 Troponin I 0.173 H* (0-0.045) ng/ml Liver Function 01/31/19 Range/Units 14:30 Total Bilirubin 0.2 (0.2-1) mg/dl AST 25 (15-37) U/L ALT 19 (12-78) U/L Alkaline Phosphatase 50 (45-117) U/L Albumin 3.7 (3.4-5.0) gm/dl Diagnostic Findings CXR: IMPRESSION: No acute cardiopulmonary abnormality. Supervising Physician Co-Signing Physician Notes Patient is a 68-year-old female with history of coronary artery disease S/P multiple stents, ongoing tobacco use and other problems who recently had drug- eluting stent to LAD 2 days ago presents with history of retrosternal, dull chest pain radiating to left arm associated with numbness, nausea, diaphoresis, shortness of breath and dizziness. Chest pain currently relieved after taking aspirin, nitroglycerin EKG showed no acute changes.. Currently she is chest pain-free. Troponins mildly elevated 0.17, 0.68. Appreciate cardiology input. N.p.o. after midnight. Low threshold to start IV heparin GGT if recurrence of chest pain. Continue aspirin, Plavix, metoprolol, statin. Appreciate cardiology input. Continue to trend cardiac enzymes. Counseled to quit smoking. To rule out stent stenosis, ACS. On exam patient is moderately built and nourished, no apparent distress, normocephalic atraumatic, lungs are clear to auscultation, S1-S2, no murmur, abdomen soft nontender, no pedal edema, grossly no focal neurological deficits. I personally reviewed the record. Patient is interviewed and examined at bedside. Patient's care is coordinated with Charmaine Ott PA-C. Please refer to the documentation above for details of patient's presentation and for discussion of other issues.
[2019-01-31] MEDS: NITROGLYCERIN 2% OINTMENT 30GM TUBE EXT SCH ×2 (18:07→23:53)
--- NOTE | 2019-01-31 18:25 | Emergency Department Note ---
Entered by Angela Woods acting as a scribe for Matthew Longoria MD History of Present Illness General Chief complaint: Chest Pain Time Seen by Provider: 01/31/19 14:48 Source: patient Mode of arrival: EMS History of Present Illness Provider complaint: Chest pain Onset (ago): hour(s) 1 Location: chest Radiation: back (left shoulder blade) and extremity (left upper extremity) Pain Consistency: + other (episode) Current Pain Intensity: 8 Associated symptoms: + diaphoresis, + nausea/vomiting and + shortness of breath Treatments prior to arrival: aspirin and other (NTG) The patient is a 68 year old female who presents to the ED with an episode of chest pain that began about an hour ago. Per EMS, the patient took 4 baby aspirin and 2 NTG at home. They report that upon arrival she appeared diaphoretic and short of breath and was given 1 more NTG en route to the hospital. The patient notes a history of an MO in 2003 and has had 3 stents put in. The patient states that her last stent was placed 2 days ago. The patient states that her pain is radiating to her left upper extremity and left shoulder blade. She states that her pain was initially an 8/10 but has slightly decreased since. The patient notes that she has felt intermittent chest pain 4 times a week for the past 3 months. The patient states that she failed a stress test at [facility] 4 months ago. The patient notes that she put on a Nicotine patch for the first time today and is concerned that this might be causing these problems. The patient complains of nausea. Home Medications Home Medications Medication Instructions Recorded Confirmed Type Caltrate with Vitamin D3 1 tab PO BID 01/31/19 01/31/19 History amitriptyline 20 mg PO HS 01/31/19 01/31/19 History aspirin [Aspir-81] 81 mg PO DAILY 01/31/19 01/31/19 History clonazepam [Klonopin] 1 mg PO HS PRN 01/31/19 01/31/19 History clopidogrel [Plavix] 75 mg PO DAILY 01/31/19 01/31/19 History conjugated estrogens [Premarin] 1 applic VAGINAL [id number] 01/31/19 01/31/19 History indomethacin 50 mg PO TID PRN 01/31/19 01/31/19 History melatonin 3 mg PO HS 01/31/19 01/31/19 History metformin [Glucophage] 500 mg PO BID 01/31/19 01/31/19 History metoprolol succinate [Toprol XL] 25 mg PO PM 01/31/19 01/31/19 History metoprolol succinate [Toprol XL] 100 mg PO PM 01/31/19 01/31/19 History nitroglycerin [Nitrostat] 0.4 mg SUBLINGUAL UD PRN 01/31/19 01/31/19 History nystatin-triamcinolone 1 applic TOPICAL TID PRN 01/31/19 01/31/19 History ondansetron HCl [Zofran] 4 mg PO Q8 PRN 01/31/19 01/31/19 History pantoprazole 40 mg PO BID 01/31/19 01/31/19 History polyethylene glycol 3350 [Miralax] 17 g PO DAILY PRN 01/31/19 01/31/19 History rosuvastatin [Crestor] 40 mg PO PM 01/31/19 01/31/19 History topiramate [Topamax] 50 mg PO DAILY 01/31/19 01/31/19 History tramadol 25 - 50 mg PO Q8 PRN 01/31/19 01/31/19 History venlafaxine [Effexor XR] 225 mg PO QAM 01/31/19 01/31/19 History vortioxetine [Trintellix] 10 mg PO DAILY 01/31/19 01/31/19 History Allergies Allergy/AdvReac Type Severity Reaction Status Date / Time Penicillins Allergy Intermediate HIVES,SWELL Verified 01/31/19 15:26 ING [place] Inhibitors AdvReac Unknown cough Verified 01/31/19 15:26 ARB-Angiotensin Receptor AdvReac Unknown ELEVATED K Verified 01/31/19 15:26 Antagonist levofloxacin AdvReac Unknown JOINT PAIN Verified 01/31/19 15:26 losartan AdvReac Unknown hyperkalemi Verified 01/31/19 15:27 a Past Med/Surg History Medical History Tobacco use (Chronic) HTN (hypertension) (Chronic) Diabetes (Chronic) Dyslipidemia (Chronic) Major depressive disorder (Chronic) Migraine headache with aura (Chronic) Depression (Chronic) 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) Diabetes mellitus (Chronic) Hypertension (Chronic) ASCVD (arteriosclerotic cardiovascular disease) (Chronic) Cervical disc disorder (Chronic) Gastroparesis (Chronic) Heart disease (Chronic) Lumbar disc herniation (Chronic) Obstructive sleep apnea (Chronic) Sarcoidosis (Suspected) Heart attack (Resolved) Surgical History H/O total hysterectomy (Chronic) History of arthroscopic knee surgery (Chronic) History of carpal tunnel surgery (Chronic) History of tonsillectomy and adenoidectomy (Chronic) Status post trigger finger release (Chronic) Family History Other Diabetes Hypertension Stroke Social History Preferred Language: [place]an Communication Ability: Effective Beliefs That Will Affect Care: Muslim Muslim Beliefs: Uatsdin Per patient, if is immenent would like last rights to be read Current Living Situation: Spouse current occupational status: retired Feels Safe at Home: Yes Smoking Status: Current every day smoker Tobacco Type: cigarettes Second Hand Exposure: No Hx Alcohol Use: Yes Alcohol type: wine Hx Substance Use: No Review of Systems See HPI for pertinent positives & negatives. and A total of 10 systems reviewed and were otherwise negative Physical Exam Vital Signs Vital Signs - 24 hr 01/31/19 14:58 01/31/19 15:00 01/31/19 15:30 Temperature 36.7 C Temperature Source Oral Sepsis Recent Fever Within 48 Hours No Sepsis New/Unexplained Change in Mental Status No Sepsis Action Taken by Nursing No Action Required Pulse Rate 73 70 68 Pulse Rate from SpO2 Sensor 71 67 Respiratory Rate 18 24 19 Respiratory Effort / Characteristics Non-Labored Spontaneous Blood Pressure 111/69 110/76 113/72 Blood Pressure Mean 83 87 85 Pulse Oximetry 98 99 98 Oxygen Delivery Method Room Air Room Air Room Air 01/31/19 15:33 01/31/19 16:00 01/31/19 16:30 Temperature Temperature Source Sepsis Recent Fever Within 48 Hours Sepsis New/Unexplained Change in Mental Status Sepsis Action Taken by Nursing Pulse Rate 70 67 Pulse Rate from SpO2 Sensor 69 67 Respiratory Rate 16 12 Respiratory Effort / Characteristics Blood Pressure 114/76 125/77 Blood Pressure Mean 88 93 Pulse Oximetry 98 98 98 Oxygen Delivery Method Room Air Room Air Room Air 01/31/19 17:00 01/31/19 17:17 01/31/19 17:30 Temperature Temperature Source Sepsis Recent Fever Within 48 Hours Sepsis New/Unexplained Change in Mental Status Sepsis Action Taken by Nursing Pulse Rate 63 72 67 Pulse Rate from SpO2 Sensor 64 72 68 Respiratory Rate 14 19 18 Respiratory Effort / Characteristics Blood Pressure 134/81 148/85 H 167/84 H Blood Pressure Mean 98 106 111 Pulse Oximetry 99 100 100 Oxygen Delivery Method Room Air Room Air Room Air General: Non-ill appearing middle age female in no acute distress. HEENT: Normal cephalic atraumatic. Pupils are equal round and reactive to light. Extraocular movements are intact. Oropharynx is pink with moist mucous membranes. No swelling of the mouth lips or tongue. Neck: Supple with a midline trachea. No meningeal signs or stiffness, no JVD or bruits. No Stridor. Chest: Clear to auscultation bilaterally. No wheezes or rhonchi. No increased work of breathing. Heart: regular rate and rhythm. Abdomen: Soft nontender, nondistended without rebound guarding or rigidity. Extremities: No cyanosis clubbing or edema. No calf tenderness or asymmetry Spine/Back. Non tender to palpation. No CVA tenderness Skin: Good turgor without rashes. Neurologic exam: Cranial nerves two through 12 are intact. Motor and sensation are intact and symmetrical throughout. Course 1453: Past medical records reviewed. The patient was evaluated in room A9. A complete history and physical exam was performed. 1557: I reevaluated the patient at this time and she is feeling better. 1616: I discussed the patient's case with Dr. [facility]. They recommend admitting to medicine. 1638: I reevaluated the patient and updated her on her test results at this time. I discussed the treatment plan with her. She verbally agrees and understands. 1647: I discussed the patient's case with Milana Martinez. She will evaluate the patient for further management. Consultations Consultation #1: I discussed the patient's case with Dr. Salvatore Huitron. They recommend admitting to medicine. Time: 16:16 Consultation #2: I discussed the patient's case with Milana Martinez. She will evaluate the patient for further management. Time: 16:47 Administered Medications Nitroglycerin (Nitro-Bid 2%) 0.5 inch EXT Q6H [facility] Stop: 03/02/19 17:59 Last Admin: 01/31/19 18:07 Dose: 0.5 inch Documented by: [id number] Discontinued Medications Acetaminophen (Tylenol) 650 mg PO NOW STA Stop: 01/31/19 18:38 Last Admin: 01/31/19 18:46 Dose: 650 mg Documented by: [id number] Medical Decision Making Differential Diagnosis Differential diagnosis includes acute coronary syndrome, arrhythmia, medication side effect, CHF, anxiety, electrolyte and metabolic abnormalities. Medical Records Attestation: I reviewed the patient's medical records. Home Medications Current Medication List: was personally reviewed by me Laboratory Data Attestation: I reviewed the patient's lab results. Result diagrams: 01/31/19 14:30 01/31/19 14:30 Lab Results 01/31/19 01/31/19 Range/Units 14:30 14:30 WBC 7.45 (4.8-10.8) K/uL RBC 3.87 L (4.2-5.4) M/uL Hgb 11.5 L (12.0-16.0) g/dL Hct 32.7 L (37-47) % MCV 84.5 (80-100) fL MCH 29.7 (25-34) pg MCHC 35.2 (32-36) g/dL RDW Std Deviation 41.8 (36.4-46.3) fL RDW Coeff of Neisha 13.7 (11.5-14.5) % Plt Count 201 (130-400) K/uL MPV 10.3 (7.4-10.4) fL Immature Gran % (Auto) 0.1 % Neut % (Auto) 56.3 % Lymph % (Auto) 33.6 % Pine % (Auto) 9.3 % Eos % (Auto) 0.3 % Baso % (Auto) 0.4 % Immature Gran # (Auto) 0.01 (0.00-0.02) K/uL Neut # (Auto) 4.20 (1.4-6.5) K/uL Lymph # (Auto) 2.50 (1.2-3.4) K/uL Pine # (Auto) 0.69 H (0.11-0.59) K/uL Eos # (Auto) 0.02 (0-0.5) K/uL Baso # (Auto) 0.03 (0-0.2) K/uL Sodium 139 (136-145) mmol/L Potassium 4.6 (3.5-5.1) mmol/L Chloride 109 H (98-107) mmol/L Carbon Dioxide 22 (21-32) mmol/L Anion Gap 8.0 (3-11) BUN 14 (7-18) mg/dl Creatinine 0.85 (0.6-1.2) mg/dl Est Cr Clr Drug Dosing 52.4 ml/min Est GFR ( Amer) 81.6 Est GFR (Non-Af Amer) 70.4 BUN/Creatinine Ratio 16.5 (10-20) Glucose 142 H (70-99) mg/dl Calcium 9.5 (8.5-10.1) mg/dl Total Bilirubin 0.2 (0.2-1) mg/dl AST 25 (15-37) U/L ALT 19 (12-78) U/L Alkaline Phosphatase 50 (45-117) U/L Troponin I 0.173 H* (0-0.045) ng/ml Total Protein 7.5 (6.4-8.2) gm/dl Albumin 3.7 (3.4-5.0) gm/dl Globulin 3.8 (2.5-4.0) gm/dl Albumin/Globulin Ratio 1.0 (0.9-2) Lipase 148 (73-393) U/L Imaging Data Attestation: I personally reviewed and interpreted this imaging study as follows: Radiologist's Impression: Radiology results as stated below per my review and the radiologist's interpretation: SINGLE VIEW CHEST CLINICAL HISTORY: Atypical chest pain. FINDINGS: An AP, portable, upright chest radiograph is compared to study dated 01/06/2011 and correlated with chest CT dated 03/03/2009. The examination is degraded by portable technique and apical lordotic positioning. The card iomediastinal silhouette is unremarkable. Chronic interstitial thickening is similar to previous. A calcific granuloma is noted in the right lower lung. There is no airspace consolidation or large pleural effusion. Mild bibasilar scarring/atelectasis is observed. No pneumothorax is seen. The skeletal structures are osteopenic. The bony thorax is grossly intact. IMPRESSION: No acute cardiopulmonary abnormality. Electronically signed by: Jovanni Barrios M.D. 01/31/2019 3:44 PM ECG Data Attestation: I personally reviewed and interpreted this ECG as follows: Indication: chest pain Rate (beats per minute): 79 Rhythm: normal sinus Findings: no PAC, no PVC, no ST depression, no ST elevation, no acute ischemic change and no ectopy Comparison ECG Date: from (10/18/2018) Change: no significant change Additional Comments: REPEAT EKG: Normal sinus rhythm at a rate of 65. No acute ischemic changes or ectopy. No significant changes from first EKG. Blood Pressure Blood Pressure Findings: Elevated blood pressure Blood Pressure Disposition: further management by hospitalist MDM Narrative This patient comes in as described above. She was placed in room A9. She is here for treatment and evaluation chest pain. She had a LAD stent placed 2 days ago at [facility]. Prior to that, she been having chest pain several times a week for the last couple months. She had not had any chest pain since the procedure. It started today. She did receive nitroglycerin and aspirin prior to arrival in and came in by ambulance. She is feeling better at present and the pain has resolved. EKG did not show any acute ischemic changes or ectopy. A second EKG also shows no ischemic changes and no change compared to EKG #1. Troponin is mildly elevated at 0.17 but this could be from her niki oplasty yesterday. It could also be from a cardiac event and this will need to be trended. At this point she is comfortable and asymptomatic. I did discuss case with Dr. Christian, the printing roller polisher on-call for [facility], he agrees with the plan and she will be admitted to the hospitalist service for further treatment and evaluation to rule out acute coronary syndrome. The patient and her are happy with the plan and she will be admitted. Impression & Plan Chest pain, precordial, Unstable angina Discharge Plan Visit Data *Final* Discharge Date/Time: 01/31/19 18:53 Chief Complaint: Chest Pain ED Provider: Matthew Longoria Discharge Problem: Chest pain, precordial, Unstable angina Patient Disposition: Being Evaluated by Hospitalist Discharge Instructions Interventions: ED Discharge Assessment Last Done: 01/31/19 18:53 The scribe's documentation has been prepared under my direction and personally reviewed by me in its entirety. I confirm that the note above accurately reflects all work, treatment, procedures, and medical decision making performed by me.
[2019-01-31] MEDS ORDERED: ACETAMINOPHEN 325 MG TAB PO STA (18:37)
[2019-01-31] MEDS ORDERED: GLUCOSE 10 TABS/TUBE PO PRN (18:59)
[2019-01-31] MEDS ORDERED: POLYETHYLENE (MIRALAX) 17 GM PACK PO PRN (18:59)
[2019-01-31] MEDS ORDERED: DEXTROSE 50% 50 ML SYRINGE IV PRN (18:59)
[2019-01-31] MEDS ORDERED: GLUCAGON FOR INJ 1 MG VIAL SQ PRN (18:59)
[2019-01-31] MEDS ORDERED: clonazePAM 1 MG TAB PO PRN (18:59)
[2019-01-31] MEDS ORDERED: GLUCOSE 40% GEL 15 GM TUBE PO PRN (18:59)
[2019-01-31] MEDS ORDERED: CARBOHYDRATES FOR HYPOGLYCEMIA PO PRN (18:59)
[2019-01-31] MEDS: NICOTINE 14 MG/24 HR PATCH TD SCH (19:56)
[2019-01-31 20:17] LABS: Partial Thromboplastin Ratio 0.9; Partial Thromboplastin Time 23.7 Seconds (21.0-31.0); Prothrombin Time 10.6 Seconds (9.0-12.0)
--- NOTE | 2019-01-31 20:46 | Cardiology Consultation ---
Date of Consultation January 31, 2019 Assessment & Plan (1) Chest pain, precordial: Patient presents, 2 days after complex repeat LAD intervention. She has known diffuse calcified coronary artery disease. It is noted that when she had her LAD/diagonal intervention performed at this institution in September 2018, and follow-up, she had an episode of post procedure angina without acute EKG changes. Serial troponins were elevated at that time peaking at 11. An echocardiogram had been performed without acute changes, and observation was performed with the addition of isosorbide mononitrate. The patient has been on dual antiplatelet therapy without interruption. At this time we will trend the patient's cardiac enzymes and EKG. Patient is to be n.p.o. after midnight tonight for further assessment tomorrow. History of Present Illness Attending Physician: Cam Young MD History of Present Illness Shelly Macdonald is a 68 year old female seen in cardiology consultation per the request of Tyrone Ott of the [facility] service for evaluation of chest pain and mildly elevated troponin I. The patient is well-known to our cardiology service. She has a history of diffuse diabetic coronary heart disease with myocardial infarction in 2004 and stenting of the proximal right coronary artery with a drug-eluting stent in 2007. Her recent cardiac history dates back to September 2018 when she underwent a pharmacologic nuclear stress test as an outpatient with symptoms of chest pressure consistent with angina, and prominent associated ST segment depression EKG after the administration of Lexiscan. The images were technically limited, however given the EKG findings and symptoms, she was referred for cardiac catheterization which took place on 10/17/2018 at [facility] with findings of 90% stenosis of the proximal left anterior descending coronary artery, and moderate diffuse right coronary artery stenosis with 60% in-stent restenosis of proximal stent and a 60% mid RCA stenosis distal to the stent. Patient underwent PCI to the proximal to mid LAD with drug-eluting stents and angioplasty of the diagonal. When the patient returns for follow-up, she states that her chest pressure had never felt improved after the initial September stents. Repeat cardiac catheterization was discussed shortly after her first procedure, but the patient opted for an interval of ongoing observation. Recently, she ultimately elected to have repeat cardiac catheterization which was performed at [facility] 2 days ago on 01/29/2019. The full procedure note is not available for review, but the discharge summary describes that a culprit mid LAD lesion was treated with drug-eluting stent a 3 x 12 mm Synergy postdilated to 3.25 mm. The first diagonal was treated with plain balloon angioplasty. The circumflex and right coronary artery disease was felt to be mild and ongoing medical management was recommended at that time. The patient was subsequently discharged after 1 evening of observation on 01/30/2019. She states that after discharge yesterday she felt wonderful. She described sitting at her dining room table at 130 today feeling well when she had abrupt onset of sudden chest discomfort and left arm discomfort as well as heavy perspiration. She took 4 baby aspirin and 2 sublingual nitroglycerin tablets before ultimately calling 911.. EKG on arrival to the emergency room revealed normal sinus rhythm at 79 bpm, age-indeterminate septal infarction pattern with poor R wave progression in lead V2. Compared to her EKG performed on 01/30/2019 at 528 at [facility], there is no significant interval change, with poor R wave progression in lead V2 chronic finding. Her troponin is drawn in the emergency room today was mildly elevated at 0.173 NG per mL. No post procedure troponins have been drawn at the time of her PCI earlier this week at [facility] for comparison. During my assessment the patient in room 285-2. She was completely comfortable. Eating her evening meal. She states her symptoms had completely resolved. Topical nitroglycerin ointment was in place. Blood pressure and heart rate were stable. Allergies Allergy/AdvReac Type Severity Reaction Status Date / Time Penicillins Allergy Intermediate HIVES,SWELL Verified 01/31/19 15:26 ING [place] Inhibitors AdvReac Unknown cough Verified 01/31/19 15:26 ARB-Angiotensin Receptor AdvReac Unknown ELEVATED K Verified 01/31/19 15:26 Antagonist levofloxacin AdvReac Unknown JOINT PAIN Verified 01/31/19 15:26 losartan AdvReac Unknown hyperkalemi Verified 01/31/19 15:27 a Home Medications Home Medications Medication Instructions Recorded Confirmed Type Caltrate with Vitamin D3 1 tab PO BID 01/31/19 01/31/19 History amitriptyline 20 mg PO HS 01/31/19 01/31/19 History aspirin [Aspir-81] 81 mg PO DAILY 01/31/19 01/31/19 History clonazepam [Klonopin] 1 mg PO HS PRN 01/31/19 01/31/19 History clopidogrel [Plavix] 75 mg PO DAILY 01/31/19 01/31/19 History conjugated estrogens [Premarin] 1 applic VAGINAL [id number] 01/31/19 01/31/19 History indomethacin 50 mg PO TID PRN 01/31/19 01/31/19 History melatonin 3 mg PO HS 01/31/19 01/31/19 History metformin [Glucophage] 500 mg PO BID 01/31/19 01/31/19 History metoprolol succinate [Toprol XL] 25 mg PO PM 01/31/19 01/31/19 History metoprolol succinate [Toprol XL] 100 mg PO PM 01/31/19 01/31/19 History nitroglycerin [Nitrostat] 0.4 mg SUBLINGUAL UD PRN 01/31/19 01/31/19 History nystatin-triamcinolone 1 applic TOPICAL TID PRN 01/31/19 01/31/19 History ondansetron HCl [Zofran] 4 mg PO Q8 PRN 01/31/19 01/31/19 History pantoprazole 40 mg PO BID 01/31/19 01/31/19 History polyethylene glycol 3350 [Miralax] 17 g PO DAILY PRN 01/31/19 01/31/19 History rosuvastatin [Crestor] 40 mg PO PM 01/31/19 01/31/19 History topiramate [Topamax] 50 mg PO DAILY 01/31/19 01/31/19 History tramadol 25 - 50 mg PO Q8 PRN 01/31/19 01/31/19 History venlafaxine [Effexor XR] 225 mg PO QAM 01/31/19 01/31/19 History vortioxetine [Trintellix] 10 mg PO DAILY 01/31/19 01/31/19 History Patient History Medical History Tobacco use (Chronic) HTN (hypertension) (Chronic) Diabetes (Chronic) Dyslipidemia (Chronic) Major depressive disorder (Chronic) Migraine headache with aura (Chronic) Depression (Chronic) 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) Diabetes mellitus (Chronic) Hypertension (Chronic) ASCVD (arteriosclerotic cardiovascular disease) (Chronic) Cervical disc disorder (Chronic) Gastroparesis (Chronic) Heart disease (Chronic) Lumbar disc herniation (Chronic) Obstructive sleep apnea (Chronic) Sarcoidosis (Suspected) Heart attack (Resolved) Surgical History H/O total hysterectomy (Chronic) History of arthroscopic knee surgery (Chronic) History of carpal tunnel surgery (Chronic) History of tonsillectomy and adenoidectomy (Chronic) Status post trigger finger release (Chronic) Family History Other Diabetes Hypertension Stroke Social History Preferred Language: Djib[place]ian Communication Ability: Effective Rest Room Maid Required: No Beliefs That Will Affect Care: Protestant Protestant Beliefs: amish Current Living Situation: Spouse current occupational status: retired Other Information That Helps Us Care for You: No Feels Safe at Home: Yes Safety Concerns: Feels Safe At This Time Smoking Status: Current every day smoker Tobacco Type: cigarettes Do You Dip or Chew Tobacco: No Second Hand Exposure: No Tobacco Cessation Education Requested by Patient: No Hx Alcohol Use: Yes Alcohol type: wine Hx Substance Use: No Review of Systems Review of Systems: All systems reviewed & are unremarkable except as noted in HPI & below Physical Exam Physical Exam: General: no acute distress and stated age Eyes: conjunctiva are pink and non-injected, sclera clear Neck: normal jugular venous pulse, no hepatojugular reflux Chest: normal shape and normal respiratory effort Lungs: clear to auscultation and percussion Cardiac Exam: - regular heart sounds, no murmurs, rubs, or gallops, no jugular venous distention Abdomen: abdomen soft, non-tender, no abnormal masses and no hepatosplenomegaly Extremities: no edema and no cyanosis Neuro:awake, coversant, follows commands, no focal motor deficits Psych: appropriate affect and insight. Results & Data Vital Signs (Past 12 Hours) Vital Signs Temp Pulse Pulse Resp BP BP Pulse Ox 01/31/19 19:28 36.9 C 69 16 136/84 98 01/31/19 18:48 70 14 149/83 H 99 01/31/19 18:00 67 12 164/86 H 100 01/31/19 17:30 67 18 167/84 H 100 01/31/19 17:17 72 19 148/85 H 100 01/31/19 17:00 63 14 134/81 99 01/31/19 16:30 67 12 125/77 98 01/31/19 16:00 70 16 114/76 98 01/31/19 15:33 98 01/31/19 15:30 68 19 113/72 98 01/31/19 15:00 70 24 110/76 99 01/31/19 14:58 36.7 C 73 18 111/69 98 Laboratory Results Cardiac Enzymes 01/31/19 01/31/19 Range/Units 14:30 19:55 AST 25 (15-37) U/L Troponin I 0.173 H* 0.168 H* (0-0.045) ng/ml Coagulation 01/31/19 Range/Units 19:55 PT 10.6 (9.0-12.0) Seconds APTT 23.7 (21.0-31.0) Seconds CBC 01/31/19 Range/Units 14:30 WBC 7.45 (4.8-10.8) K/uL RBC 3.87 L (4.2-5.4) M/uL Hgb 11.5 L (12.0-16.0) g/dL Hct 32.7 L (37-47) % Plt Count 201 (130-400) K/uL Neut # (Auto) 4.20 (1.4-6.5) K/uL Lymph # (Auto) 2.50 (1.2-3.4) K/uL [place] # (Auto) 0.69 H (0.11-0.59) K/uL Eos # (Auto) 0.02 (0-0.5) K/uL Baso # (Auto) 0.03 (0-0.2) K/uL Comprehensive Metabolic Panel 01/31/19 Range/Units 14:30 Sodium 139 (136-145) mmol/L Potassium 4.6 (3.5-5.1) mmol/L Chloride 109 H (98-107) mmol/L Carbon Dioxide 22 (21-32) mmol/L BUN 14 (7-18) mg/dl Creatinine 0.85 (0.6-1.2) mg/dl Glucose 142 H (70-99) mg/dl Calcium 9.5 (8.5-10.1) mg/dl AST 25 (15-37) U/L ALT 19 (12-78) U/L Alkaline Phosphatase 50 (45-117) U/L Total Protein 7.5 (6.4-8.2) gm/dl Albumin 3.7 (3.4-5.0) gm/dl Intake and Output 01/31/19 01/31/19 01/31/19 06:59 14:59 22:59 Other: Weight 62.3 kg 62.3 kg Patient Weight 02/01/19 06:59 Weight 62.3 kg Diagnostic Findings EKG as noted above Medications Administered Current Inpatient Medications Acetaminophen (Tylenol) 650 mg PO Q4H PRN PRN Reason: Pain or Fever Stop: 03/02/19 18:58 Amitriptyline HCl (Elavil) 20 mg PO HS BRITTNEY Stop: 03/02/19 20:59 Aspirin (Ecotrin Ectab) 81 mg PO DAILY BRITTNEY Stop: 03/03/19 08:59 Clonazepam (Klonopin) 1 mg PO HS PRN PRN Reason: Anxiety Stop: 03/02/19 18:58 Clopidogrel Bisulfate (Plavix) 75 mg PO DAILY BRITTNEY Stop: 03/03/19 08:59 Dextrose (Dextrose 50%) 25 - 50 ml IV UD PRN; Protocol PRN Reason: Hypoglycemia Protocol Stop: 03/02/19 18:58 Glucagon (Glucagen) 1 mg SQ UD PRN; Protocol PRN Reason: Hypoglycemia Protocol Stop: 03/02/19 18:58 Glucose (Dex4 Glucose) 4 - 8 tabs PO UD PRN; Protocol PRN Reason: Hypoglycemia Protocol Stop: 03/02/19 18:58 Glucose (Glucose 40%) 15 - 30 gm PO UD PRN; Protocol PRN Reason: Hypoglycemia Protocol Stop: 03/02/19 18:58 Heparin Sodium (Porcine) (Heparin Sodium (Porcine)) 5,000 units SQ Q12 BRITTNEY Stop: 03/02/19 20:59 Insulin Aspart (Novolog Flexpen) 0 units SC ACHS BRITTNEY Stop: 03/02/19 20:59 Metoprolol Succinate (Toprol Xl) 25 mg PO PM BRITTNEY Stop: 03/02/19 20:59 Metoprolol Succinate (Toprol Xl) 100 mg PO PM BRITTNEY Stop: 03/02/19 20:59 Miscellaneous (Remove Nicoderm Patch) 1 ea N/A HS PRN PRN Reason: insomnia Stop: 03/02/19 20:59 Miscellaneous (Carbohydrates For Hypoglycemia) 15 - 30 gm PO UD PRN PRN Reason: Hypoglycemia Treatment Stop: 03/02/19 18:58 Miscellaneous (Order Awaiting Action) 1 ea N/A QS BRITTNEY Stop: 03/03/19 00:00 Nicotine (Nicoderm Cq) 14 mg TD QAM BRITTNEY Stop: 03/02/19 19:59 Last Admin: 01/31/19 19:56 Dose: Not Given Documented by: Nitroglycerin (Nitro-Bid 2%) 0.5 inch EXT Q6H BRITTNEY Stop: 03/02/19 17:59 Last Admin: 01/31/19 18:07 Dose: 0.5 inch Documented by: Pantoprazole Sodium (Protonix) 40 mg PO BID [facility] Stop: 03/02/19 20:59 Polyethylene Glycol (Miralax Powder Packet) 17 gm PO DAILY PRN PRN Reason: Constipation Stop: 03/02/19 18:58 Rosuvastatin Calcium (Crestor) 40 mg PO PM BRITTNEY Stop: 03/02/19 20:59 Topiramate (Topamax) 50 mg PO DAILY [facility] Stop: 03/03/19 08:59 Venlafaxine HCl (Effexor Extended Release) 225 mg PO QAM [facility] Stop: 03/03/19 08:59
[2019-01-31] MEDS ORDERED: METOPROLOL SUCC 25MG EXT REL TAB PO SCH (21:00)
[2019-01-31] MEDS ORDERED: AMITRIPTYLINE HCL 10 MG TAB PO SCH (21:00)
[2019-01-31] MEDS ORDERED: METOPROLOL SUCC 50MG EXT REL TAB PO SCH (21:00)
[2019-01-31] MEDS ORDERED: ROSUVASTATIN CALCIUM 20 MG TAB PO SCH (21:00)
[2019-01-31] MEDS: PANTOprazole 40 MG TAB PO SCH (21:20)
[2019-01-31] MEDS: INSULIN ASPART 100 UNITS/ML 3 ML PEN SC SCH (21:25)
[2019-01-31] MEDS: HEPARIN SOD 5,000 UNIT/0.5 ML VIAL SQ SCH (21:30)
[2019-01-31] MEDS: ACETAMINOPHEN 325 MG TAB PO PRN (22:34)
[2019-02-01 02:03] LABS: Basophils # (auto) 0.02 K/uL (0-0.2); Basophils % (auto) 0.3 %; Eosinophils # (auto) 0.05 K/uL (0-0.5); Eosinophils % (auto) 0.8 %; Hematocrit (blood only) 31.7 % (37-47); Hemoglobin 10.7 g/dL (12.0-16.0); Immature Granulocytes # (auto) 0.01 K/uL (0.00-0.02); Immature Granulocytes % (auto) 0.2 %; Lymphocytes % (auto) 45.6 %; Mean Corpuscular Hgb Conc 33.8 g/dL (32-36); Mean Corpuscular Volume 85.4 fL (80-100); Mean Platelet Volume 9.8 fL (7.4-10.4); Monocytes # (auto) 0.61 K/uL (0.11-0.59); Monocytes % (auto) 9.6 %; Neutrophils # (auto) 2.77 K/uL (1.4-6.5); Neutrophils % (auto) 43.5 %; Platelet Count 173 K/uL (130-400); RDW Coefficient of Variation 13.6 % (11.5-14.5); RDW Standard Deviation 42.4 fL (36.4-46.3); Red Blood Count 3.71 M/uL (4.2-5.4); White Blood Count 6.36 K/uL (4.8-10.8)
[2019-02-01 02:20] LABS: BUN Creatinine Ratio 15.9 (10-20); Calcium 8.7 mg/dl (8.5-10.1); Creatinine Clr Calc Pharmacy 51.2 ml/min; Est GFR (African American) 79.3; Est GFR (Non-African American) 68.5; Potassium 4.2 mmol/L (3.5-5.1)
[2019-02-01 02:32] LABS: Troponin I 0.147 ng/ml (0-0.045)
[2019-02-01] MEDS: ACETAMINOPHEN 325 MG TAB PO PRN ×2 (05:58→11:49)
[2019-02-01] MEDS: NITROGLYCERIN 2% OINTMENT 30GM TUBE EXT SCH (06:06)
[2019-02-01] MEDS: NICOTINE 14 MG/24 HR PATCH TD SCH (08:06)
[2019-02-01] MEDS: PANTOprazole 40 MG TAB PO SCH (08:06)
[2019-02-01] MEDS: INSULIN ASPART 100 UNITS/ML 3 ML PEN SC SCH ×2 (08:09→12:00)
[2019-02-01] MEDS: HEPARIN SOD 5,000 UNIT/0.5 ML VIAL SQ SCH (08:09)
[2019-02-01] MEDS ORDERED: TOPIRAMATE 25 MG TAB PO SCH (09:00)
[2019-02-01] MEDS ORDERED: VENLAFAXINE HCL XR 75 MG CAPXR PO SCH (09:00)
[2019-02-01] MEDS ORDERED: ASPIRIN 81 MG ECTAB PO SCH (09:00)
[2019-02-01] MEDS ORDERED: CLOPIDOGREL BISULFATE 75 MG TAB PO SCH (09:00)
[2019-02-01 12:03] VITALS: PULSE 66
--- NOTE | 2019-02-01 13:15 | Cardiology Progress Note ---
Date of Service February 01, 2019 Assessment & Plan (1) Chest pain, precordial: one brief episode. No recurrence of symptoms. Underwent recent BANDAR to LAD, POBA to diagonal at [facility] 3 days ago. Mild trop elevation may be due to post procedure. Feeling well. Acute event excluded. Doubt acute stent thrombosis. Proceed with Prior to hospital medications. Some BPs elevated, others OK. Continue same medications. Did not tolerated Imdur in past due to headache. Did not tolerate amlodipine in the past due to edema. Stable for discharge from cardiac perspective with planned outpt follow up. Subjective CC: follow up chest pain Subjective: patient feeling well. Telemetry reveals SR in the 60s. EKG with non specific lateral T wave flattening, and age undetermined septal infarct pattern unchanged compared to prior historical tracings. Pt without additional CP overnight or this am. Walked in hallway without difficulty. Physical Exam Constitutional: WD/WN, vitals as above Respiratory: normal respiratory effort, lungs clear to auscultation Cardiovascular: RRR, no murmur, no edema Vessels: no JVD Extremities: no edema Gastrointestinal (Abdomen): normal bowel sounds, soft, nontender, no he patosplenomegaly Neurologic: PERRL, EOMI, accommodation nl, no face palsy, no dysarthria moves all extremities; no focal motor deficits Results & Data Vital Signs (Past 12 Hours) Vital Signs Temp Pulse Pulse Resp BP Pulse Ox 02/01/19 11:30 37.2 C 66 18 153/88 H 100 02/01/19 07:25 61 02/01/19 07:00 37.0 C 61 18 143/80 H 98 02/01/19 05:59 66 157/87 H 02/01/19 04:02 36.7 C 81 18 118/64 94 02/01/19 01:38 71 Laboratory Results Cardiac Enzymes 01/31/19 01/31/19 02/01/19 Range/Units 14:30 19:55 01:55 AST 25 (15-37) U/L Troponin I 0.173 H* 0.168 H* 0.147 H* (0-0.045) ng/ml 02/01/19 Range/Units 10:24 AST (15-37) U/L Troponin I 0.120 H* (0-0.045) ng/ml Coagulation 01/31/19 Range/Units 19:55 PT 10.6 (9.0-12.0) Seconds APTT 23.7 (21.0-31.0) Seconds CBC 01/31/19 02/01/19 Range/Units 14:30 01:55 WBC 7.45 6.36 (4.8-10.8) K/uL RBC 3.87 L 3.71 L (4.2-5.4) M/uL Hgb 11.5 L 10.7 L (12.0-16.0) g/dL Hct 32.7 L 31.7 L (37-47) % Plt Count 201 173 (130-400) K/uL Neut # (Auto) 4.20 2.77 (1.4-6.5) K/uL Lymph # (Auto) 2.50 2.90 (1.2-3.4) K/uL [place] # (Auto) 0.69 H 0.61 H (0.11-0.59) K/uL Eos # (Auto) 0.02 0.05 (0-0.5) K/uL Baso # (Auto) 0.03 0.02 (0-0.2) K/uL Comprehensive Metabolic Panel 01/31/19 02/01/19 Range/Units 14:30 01:55 Sodium 139 138 (136-145) mmol/L Potassium 4.6 4.2 (3.5-5.1) mmol/L Chloride 109 H 111 H (98-107) mmol/L Carbon Dioxide 22 23 (21-32) mmol/L BUN 14 14 (7-18) mg/dl Creatinine 0.85 0.87 (0.6-1.2) mg/dl Glucose 142 H 113 H (70-99) mg/dl Calcium 9.5 8.7 (8.5-10.1) mg/dl AST 25 (15-37) U/L ALT 19 (12-78) U/L Alkaline Phosphatase 50 (45-117) U/L Total Protein 7.5 (6.4-8.2) gm/dl Albumin 3.7 (3.4-5.0) gm/dl Intake and Output 01/31/19 02/01/19 02/01/19 22:59 06:59 14:59 Other: Weight 62.3 kg 63.4 kg Diagnostic Findings Echo with normal wall motion and LVEF Medications Administered Current Inpatient Medications Acetaminophen (Tylenol) 650 mg PO Q4H PRN PRN Reason: Pain or Fever Stop: 03/02/19 18:58 Last Admin: 02/01/19 11:49 Dose: 650 mg Documented by: Amitriptyline HCl (Elavil) 20 mg PO HS BRITTNEY Stop: 03/02/19 20:59 Last Admin: 01/31/19 21:20 Dose: 20 mg Documented by: Aspirin (Ecotrin Ectab) 81 mg PO DAILY BRITTNEY Stop: 03/03/19 08:59 Last Admin: 02/01/19 08:07 Dose: 81 mg Documented by: Clonazepam (Klonopin) 1 mg PO HS PRN PRN Reason: Anxiety Stop: 03/02/19 18:58 Last Admin: 01/31/19 21:32 Dose: 1 mg Documented by: Clopidogrel Bisulfate (Plavix) 75 mg PO DAILY BRITTNEY Stop: 03/03/19 08:59 Last Admin: 02/01/19 08:06 Dose: 75 mg Documented by: Dextrose (Dextrose 50%) 25 - 50 ml IV UD PRN; Protocol PRN Reason: Hypoglycemia Protocol Stop: 03/02/19 18:58 Glucagon (Glucagen) 1 mg SQ UD PRN; Protocol PRN Reason: Hypoglycemia Protocol Stop: 03/02/19 18:58 Glucose (Dex4 Glucose) 4 - 8 tabs PO UD PRN; Protocol PRN Reason: Hypoglycemia Protocol Stop: 03/02/19 18:58 Glucose (Glucose 40%) 15 - 30 gm PO UD PRN; Protocol PRN Reason: Hypoglycemia Protocol Stop: 03/02/19 18:58 Heparin Sodium (Porcine) (Heparin Sodium (Porcine)) 5,000 units SQ Q12 BRITTNEY Stop: 03/02/19 20:59 Last Admin: 02/01/19 08:09 Dose: 5,000 units Documented by: Insulin Aspart (Novolog Flexpen) 0 units SC ACHS BRITTNEY Stop: 03/02/19 20:59 Last Admin: 02/01/19 12:00 Dose: Not Given Documented by: Metoprolol Succinate (Toprol Xl) 25 mg PO PM BRITTNEY Stop: 03/02/19 20:59 Last Admin: 01/31/19 21:21 Dose: 25 mg Documented by: Metoprolol Succinate (Toprol Xl) 100 mg PO PM BRITTNEY Stop: 03/02/19 20:59 Last Admin: 01/31/19 21:21 Dose: 100 mg Documented by: Miscellaneous (Carbohydrates For Hypoglycemia) 15 - 30 gm PO UD PRN PRN Reason: Hypoglycemia Treatment Stop: 03/02/19 18:58 Miscellaneous (Order Awaiting Action) 1 ea N/A QS BRITTNEY Stop: 03/03/19 00:00 Last Admin: 02/01/19 08:08 Dose: Not Given Documented by: Miscellaneous (Remove Nicoderm Patch) 1 ea N/A DAILY@0859 [facility] Stop: 03/03/19 08:58 Last Admin: 02/01/19 08:08 Dose: 1 ea Documented by: Nicotine (Nicoderm Cq) 14 mg TD QAM [facility] Stop: 03/02/19 19:59 Last Admin: 02/01/19 08:06 Dose: 14 mg Documented by: Pantoprazole Sodium (Protonix) 40 mg PO BID [facility] Stop: 03/02/19 20:59 Last Admin: 02/01/19 08:06 Dose: 40 mg Documented by: Polyethylene Glycol (Miralax Powder Packet) 17 gm PO DAILY PRN PRN Reason: Constipation Stop: 03/02/19 18:58 Rosuvastatin Calcium (Crestor) 40 mg PO PM [facility] Stop: 03/02/19 20:59 Last Admin: 01/31/19 21:19 Dose: 40 mg Documented by: Topiramate (Topamax) 50 mg PO DAILY BRITTNEY Stop: 03/03/19 08:59 Last Admin: 02/01/19 08:07 Dose: 50 mg Documented by: Venlafaxine HCl (Effexor Extended Release) 225 mg PO QAM [facility] Stop: 03/03/19 08:59 Last Admin: 02/01/19 08:07 Dose: 225 mg Documented by:
[2019-02-01 15:03] VITALS: BP 146/83; TEMP 97.9; O2SAT 96
--- NOTE | 2019-02-01 15:24 | Hospitalist Progress Note ---
Date of Service February 01, 2019 Assessment & Plan (1) Chest pain, precordial: Presented with chest pain. Recent PCI with drug-eluting stent to LAD on 01/29/2019. Serum troponin 0 0.173 and subsequently declined. No acute EKG changes. Seen in consultation by Cardiology. [place] that chest pain was atypical and that elevated troponin secondary to recent PCI. No medication changes so no need for further cardiac evaluation. (2) Coronary artery disease: Known coronary artery disease with history of myocardial infarction 2003, PCI of RCA in 2007, and recent PCI of LAD with drug-eluting stent on 01/29/2019 at [facility]. Presented with chest pain as described above that was felt to be noncardiac in nature. Discharged on aspirin, clopidogrel, metoprolol, statin. (3) Hypertension: Continue metoprolol. 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 Last hemoglobin A1c in clinic was 7.0 on 10/13/2018. Metformin held during hospital stay. Insulin coverage ordered. Fasting blood sugar day of discharge was 153. Continue metformin. (5) DVT prophylaxis: SQ heparin. (6) Discharge planning issues: Discharge to home. Family Medicine follow-up with Dr. Smith. Cardiology follow-up with Markell Brooks PA-C. Subjective Doing well. No further chest pain. No other concerns. Seen by Cardiology. No need for additional cardiac evaluation. Physical Exam Constitutional: no acute distress Respiratory: no respiratory distress Auscultation: lungs clear to auscultation bilaterally Cardiovascular: Rate/Rhythm: regular rate and regular rhythm Vessels: no JVD Extremities: no calf tenderness and no edema Gastrointestinal (Abdomen): normal bowel sounds, soft, nontender, no hepatosplenomegaly Skin: no rashes, warm and dry Psychiatric: Orientation: alert and oriented x 3 Results & Data Vital Signs (Past 12 Hours) Vital Signs Temp Pulse Pulse Resp BP Pulse Ox 02/01/19 15:02 36.6 C 66 18 146/83 H 96 02/01/19 11:30 37.2 C 66 18 153/88 H 100 02/01/19 07:25 61 02/01/19 07:00 37.0 C 61 18 143/80 H 98 02/01/19 05:59 66 157/87 H 02/01/19 04:02 36.7 C 81 18 118/64 94
--- NOTE | 2019-02-05 14:14 | Discharge Summary ---
Date of Service Date of Admission: 01/31/19 Date of Discharge: 02/01/19 Admission HPI Per Admitting Provider Pt is 68 y/o M with PMH CAD s/p PCI RCA in 2007, 2 BANDAR to LAD in 09/2018 and 1 BANDAR to LAD on 01/29/19, HTN, dyslipidemia, DM II, depression, anxiety, tobacco use presented to ER via EMS for CP. Patient with [place] cardiac [place] [facility] and had BANDAR to LAD. Patient was discharged 01/30/2019 and she reports that she was feeling well and not having any chest pain or shortness of breath. Patient states today at 1:30 PM she was sitting playing on her tablet when she started with anterior chest pain with radiation to left arm left arm numbness with associated nausea, diaphoresis, shortness of breath and dizziness. Patient took 2 sublingual nitroglycerin and 4 baby aspirin at home with slight relief of chest pain. EMS arrived and patient was given 1 spray nitroglycerin and patient reports since has been chest pain-free and no longer having any SOB, dizziness, nausea or diaphoresis. Patient has remained chest pain-free in ER. Patient states has not smoked cigarettes today and started using nicotine patch today. Denies fever/chills, V/D/C, ESTEVES, syncope, vision changes, neck pain, orthopnea, palpitations, cough, sore throat, choking, otalgia, rhinorrhea, abdominal pain, weakness, extremity weakness, increased extremity edema, rashes, urinary symptoms. Admission Exam Per Admitting Provider General: no acute distress, WDWN Head: normocephalic, atraumatic Eyes: PERRL, EOM's intact, conjunctiva non-injected, anicteric ENT: normal inspection external ears, nose, mucous membranes moist Neck: supple, trachea midline Lungs: clear, no respiratory distress, no wheezing/rhonchi/rales CV: RRR, no murmur, chest nontender to palpation, no JVD, no pretibial edema Abd: normal BS, soft, non-tender Ext: no cyanosis, no calf tenderness Neuro: A&O x 3, no focal deficits noted, normal affect Skin: warm, dry Principal Diagnosis chest pain, noncardiac coronary artery disease Discharge Data Allergies Allergy/AdvReac Type Severity Reaction Status Date / Time Penicillins Allergy INA [place] Verified 01/31/19 15:26 ING [place] Inhibitors AdvReac Unknown cough Verified 01/31/19 15:26 ARB-Angiotensin Receptor AdvReac Unknown ELEVATED K Verified 01/31/19 15:26 Antagonist levofloxacin AdvReac Unknown JOINT PAIN Verified 01/31/19 15:26 losartan AdvReac Unknown hyperkalemi Verified 01/31/19 15:27 a Consultations 01/31/19 16:47 ED Decision to Admit Stat 01/31/19 18:59 Consult Cardiology Routine Hospital Course (1) Chest pain, precordial: Presented with chest pain. Recent PCI with drug-eluting stent to LAD on 01/29/2019. Serum troponin 0 0.173 and subsequently declined. No acute EKG changes. Seen in consultation by Cardiology. [place] that chest pain was atypical and that elevated troponin secondary to recent PCI. No medication changes so no need for further cardiac evaluation. (2) Coronary artery disease: Known coronary artery disease with history of myocardial infarction 2003, PCI of RCA in 2007, and recent PCI of LAD with drug-eluting stent on 01/29/2019 at [facility]. Presented with chest pain as described above that was felt to be noncardiac in nature. Discharged on aspirin, clopidogrel, metoprolol, statin. (3) Hypertension: Continue metoprolol. 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 Last hemoglobin A1c in clinic was 7.0 on 10/13/2018. Metformin held during hospital stay. Insulin coverage ordered. Fasting blood sugar day of discharge was 153. Continue metformin. (5) DVT prophylaxis: SQ heparin. (6) Discharge planning issues: Discharge to home. Family Medicine follow-up with Dr. Smith. Cardiology follow-up with Markell Brooks PA-C. Total Time Total Time Spent Total Time Spent (In Minutes): 30 Discharge Plan Discharge Items Patient Disposition: Home - Self-Care Reason For Visit: chest pain Discharge Diagnosis: chest pain, no sign of heart attack Condition: Good Discharge Goals: Decrease discomfort Activity: Resume your previous activity Activity Comment: as directed by Cardiology Non-emergency contact: Primary Care Provider, Hospitalist and Doctor Of Nurse Anesthesia Call non-emergency contact if: you have any medication questions, your symptoms worsen and your pain is not controlled Follow-up/Referrals: Brent Smith MD [Primary Care Provider] - ( 02/05/2019 10:00 AM Brent Smith MD) Markell Brooks [Family Provider] - (03/14/2019 8:30 AM Markell Brooks PA-C Cardiology, [facility]) Diet: Carb Consistent or DM2 and Heart Healthy Addtl Provider Instructions: OTHER INSTRUCTIONS: Seek medical attention if you have: * temperature above 101 * chest pain or trouble breathing * abdominal pain, nausea, vomiting * diarrhea, dark stools or bloody stools * any unanswered questions or concerns Call 911 if symptoms are severe. Please take good care of yourself. Call if you have any questions or problems. My cell # is [phone]. You can also reach a [facility] hospitalist on duty at [facility] 24 hours a day by calling [phone]. Prescriptions: Continued metformin [Glucophage] 500 mg tablet 500 mg PO BID RF: 0 venlafaxine [Effexor XR] 75 mg capsule,extended release 24hr 225 mg PO QAM RF: 0 polyethylene glycol 3350 [Miralax] 17 gram Powder In Packet 17 g PO DAILY PRN (Reason: Constipation) RF: 0 ondansetron HCl [Zofran] 4 mg Tablet 4 mg PO Q8 PRN (Reason: Nausea) RF: 0 metoprolol succinate [Toprol XL] 100 mg tablet extended release 24 hr 100 mg PO PM RF: 0 clonazepam [Klonopin] 1 mg Tablet 1 mg PO HS PRN (Reason: Anxiety) RF: 0 topiramate [Topamax] 25 mg tablet 50 mg PO DAILY RF: 0 melatonin 3 mg Tablet 3 mg PO HS RF: 0 clopidogrel [Plavix] 75 mg tablet 75 mg PO DAILY RF: 0 aspirin [Aspir-81] 81 mg Tablet,Delayed Release (Dr/Ec) 81 mg PO DAILY RF: 0 tramadol 50 mg tablet 25 - 50 mg PO Q8 PRN (Reason: BACK PAIN/MIGRIANE) RF: 0 nystatin-triamcinolone 100,000-0.1 unit/gram-% Ointment 1 applic TOPICAL TID PRN (Reason: AFFECTED AREA) RF: 0 amitriptyline 10 mg Tablet 20 mg PO HS RF: 0 pantoprazole 40 mg Tablet,Delayed Release (Dr/Ec) 40 mg PO BID RF: 0 Premarin 0.625 mg/gram cream 1 applic vaginal 2XWK RF: 0 indomethacin 50 mg Capsule 50 mg PO TID PRN (Reason: JOINT FLARE UPS) RF: 0 nitroglycerin [Nitrostat] 0.4 mg Tablet, Sublingual 0.4 mg sublingual UD PRN (Reason: Chest Pain) RF: 0 metoprolol succinate [Toprol XL] 25 mg tablet extended release 24 hr 25 mg PO PM RF: 0 rosuvastatin [Crestor] 40 mg Tablet 40 mg PO PM RF: 0 Caltrate with Vitamin D3 1 tab PO BID RF: 0 Trintellix 10 mg Tablet 10 mg PO DAILY RF: 0 Stand-Alone Forms: Call Back Authorization, [facility] Discharge Orders: Discharge Order (Routine); Ordered 02/01/19 Ordered By: Cam Young Admission Data Admit Date/Time: 01/31/19 18:00 Attending Provider: Cam Young Admit Provider: Matthew Venegas Primary Care Provider: Brent Smith Other Providers: Matthew Venegas ; Dexter Morales Service: Telemetry Medical Other Interventions: Discharge Summary Assessment (RN) Last Done: 02/01/19 16:03 DC Date/Time DO NOT enter until pt leaves facility: 02/01/19 16:15
== END 2019-02-01 16:15 | disposition home or self-care (01) ==
LOC: ED 14:45 → 2N 14:45
DX: Z88.1 Allergy status to other antibiotic agents; Z79.02 Long term (current) use of antithrombotics/antiplatelets; Z79.899 Other long term (current) drug therapy; F17.210 Nicotine dependence, cigarettes, uncomplicated; I25.10 Atherosclerotic heart disease of native coronary artery without angina pectoris; K31.84 Gastroparesis; G47.33 Obstructive sleep apnea (adult) (pediatric); F32.9 Major depressive disorder, single episode, unspecified; E11.9 Type 2 diabetes mellitus without complications; Z88.0 Allergy status to penicillin; E78.5 Hyperlipidemia, unspecified; Z79.84 Long term (current) use of oral hypoglycemic drugs; I25.2 Old myocardial infarction; Z79.82 Long term (current) use of aspirin; I10 Essential (primary) hypertension; R07.2 Precordial pain

== ENCOUNTER 2024-08-09 06:42 | Observation (INO) ==
--- NOTE | 2024-08-08 15:04 | History & Physical Report ---
Date of Service August 08, 2024 Assessment & Plan (1) Abnormal nuclear stress test: (2) Coronary artery disease with exertional angina: (3) Diabetes: (4) Dyslipidemia: Plan Risk, benefits, alternatives to cardiac catheterization discussed. Patient agreeable to proceed. All questions answered to patient's satisfaction. Further recommendations pending result of cardiac catheterization. History of Present Illness Chief Complaint: Chest pain Primary Care Provider: Brent Smith MD 74-year-old female presents for left heart catheterization. Complex cardiovascular history listed below. Recent symptoms include shortness of breath and dyspnea on exertion. Reports intermittent chest discomfort at rest as well as with activity. Chest discomfort often associated with anxiety.Recent nuclear stress test demonstrating LAD territory versus diagonal branch vessel ischemia. Problem List: 1. ASCVD / Myocardial infarction in 2004. 2. Diffuse diabetic coronary disease 3. Status post PTCA and stenting of the proximal RCA with a drug-eluting stent by Dr. Tobin on 11/06/2007 4. October 17, 2018 catheterization revealed a 90% proximal LAD stenosis and moderate diffuse right coronary artery stenosis including a 60% in stent restenosis of the proximal stent and a 60% mid stenosis distal to the sent, u ndergoing PCI of the proximal to mid LAD with two (2.75 x 8, 2.5 x 12 [place]) drug-eluting stents and angioplasty of the diagonal branch with residual 30% stenosis. Her vessels were noted to be heavily calcified. 5. January 29, 2019 cardiac catheterization, PCI of the mid LAD with 3.0 x 12 mm Synergy drug-eluting stent and plain old balloon angioplasty of the 1st diagonal branch. The left main coronary artery was described as large in caliber, without significant disease. Left circumflex was noted to be mildly disease. The right coronary artery was described as a medium vessel with mild disease. 6. Status post PCI the RCA in April 2020 ([place]) 2. Sensed premature ventricular complexes 3. Hypertension 4. Hyperlipidemia, with abnormal LFTs, following with [facility], mild form of autoimmune hepatitis 5. Type II diabetes mellitus 6. Gastroparesis 7. Sarcoidosis. 8. Chronic tobacco abuse 9. Rheumatoid arthritis 10. Iron deficiency anemia. Followed by GI and Hematology. 11. Mild sleep apnea on prior testing, prior to significant weight loss. 12. Lumbar spine stenosis. Allergies Allergy/AdvReac Type Severity Reaction Status Date / Time Penicillins Allergy Intermediate INA LLANES Verified 08/09/24 07:16 ING [place] Inhibitors AdvReac Unknown Cough Verified 08/09/24 07:16 ARB-Angiotensin Receptor AdvReac Unknown Hyperkalemi Verified 08/09/24 07:16 Antagonist a levofloxacin AdvReac Unknown Joint Pain Verified 08/09/24 07:16 losartan AdvReac Unknown Hyperkalemi Verified 08/09/24 07:16 a sodium fluoride AdvReac Unknown Lips crack Verified 08/09/24 07:16 [From Fluoritab] open Home Medications Medication Instructions Recorded Confirmed Type amitriptyline 10 mg tablet 20 mg PO HS 01/31/19 08/09/24 History aspirin 81 mg tablet,delayed 81 mg PO DAILY 01/31/19 08/09/24 History release (Aspir-) clopidogrel 75 mg tablet (Plavix) 75 mg PO DAILY 01/31/19 08/21/19 History indomethacin 50 mg capsule 50 mg PO TID PRN Gout Flare Up 01/31/19 08/09/24 History melatonin 3 mg tablet 3 mg PO HS 01/31/19 08/09/24 History metformin 500 mg tablet 500 mg PO BID 01/31/19 08/09/24 History (Glucophage) metoprolol succinate 100 mg 100 mg PO QPM 01/31/19 08/09/24 History tablet,extended release 24 hr (Toprol XL) nitroglycerin 0.4 mg sublingual 0.4 mg sublingual DIRECTED PRN 01/31/19 08/09/24 History tablet (Nitrostat) Chest Pain nystatin-triamcinolone 100,000 1 applic topical TID PRN Skin Care 01/31/19 08/21/19 History unit/gram-0.1 % topical ointment ondansetron HCl 4 mg tablet 4 mg PO Q8H PRN Nausea 01/31/19 08/21/19 History (Zofran) pantoprazole 40 mg tablet,delayed 40 mg PO BID 01/31/19 08/09/24 History release polyethylene glycol 3350 17 gram 17 g PO DAILY PRN Constipation 01/31/19 08/09/24 History oral powder packet (Miralax) rosuvastatin 40 mg tablet (Crestor) 40 mg PO QPM 01/31/19 08/09/24 History topiramate 25 mg tablet (Topamax) 50 mg PO QAM 01/31/19 08/09/24 History tramadol 50 mg tablet 25 - 50 mg PO Q8H PRN Pain 01/31/19 08/09/24 History vortioxetine 10 mg tablet 10 mg PO QAM 01/31/19 08/09/24 History (Trintellix) albuterol sulfate 90 mcg/actuation 2 puff inhalation Q4H PRN 08/21/19 08/09/24 H istory aerosol inhaler Shortness Of Breath Or Wheezing calcium 500 mg (as 1 tab PO BID 08/21/19 08/09/24 History carbonate)-vitamin D3 3.125 mcg (125 unit) tablet (Calcium) chlorzoxazone 500 mg tablet 500 mg PO HS 08/21/19 08/09/24 History clonazepam 1 mg tablet 0.5 mg PO QAM 08/21/19 08/09/24 History clonazepam 1 mg tablet 1 mg PO HS 08/21/19 08/09/24 History topiramate 25 mg tablet 25 mg PO QPM 08/21/19 08/09/24 History venlafaxine 150 mg 150 mg PO QAM 08/21/19 08/09/24 History capsule,extended release 24 hr venlafaxine 75 mg capsule,extended 75 mg PO QAM 08/21/19 08/09/24 History release 24 hr Past Med/Surg History Problem List Abnormal nuclear stress test Discharge planning issues DVT prophylaxis Diabetes mellitus type 2 with complications Coronary artery disease Unstable angina (Acute) Chest pain, precordial (Acute) Chest pain PVC (premature ventricular contraction) (Acute) Status post insertion of drug-eluting stent into left anterior descending (LAD) artery for coronary artery disease (Acute) Tobacco use (Chronic) HTN (hypertension) (Chronic) Diabetes (Chronic) Dyslipidemia (Chronic) Major depressive disorder (Chronic) Migraine headache with aura (Chronic) Depression (Chronic) 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) Diabetes mellitus (Chronic) Hypertension (Chronic) Medical History Hyperlipidemia Angina pectoris Sarcoidosis Obstructive sleep apnea Lumbar disc herniation Gastroparesis Cervical disc disorder ASCVD (arteriosclerotic cardiovascular disease) Heart attack Heart disease Surgical History History of cardiac cath stent placed on 01/29/2019 and 10/13/2018 (mid-LAD stent placed in 09/2018 with restenosis and restented on 01/29/2019) H/O total hysterectomy Status post trigger finger release History of tonsillectomy and adenoidectomy History of arthroscopic knee surgery History of carpal tunnel surgery Family History Other Diabetes Hypertension Stroke Social History Smoking Status: Current some day smoker Tobacco Type: Cigarettes Cigarettes Per Day: 10; Second Hand Exposure: No; Do You Dip or Chew Tobacco: No; Hx Alcohol Use: No Hx Substance Use: No Preferred Language: [place] Islander Communication Ability: Effective Outgoing Inspector Required: No Beliefs That Will Affect Care: None Current Living Situation: Spouse current occupational status: retired current occupation: Retired Feels Safe at Home: Yes Assistive Devices: None Review of Systems Review of Systems: All systems reviewed & are unremarkable except as noted in HPI & below Physical Exam Constitutional: well nourished; no acute distress Respiratory: no respiratory distress, no labored breathing and no retractions Auscultation: no crackles, no rales, no rhonchi and no wheezes Cardiovascular: Rate/Rhythm: regular rate and regular rhythm Heart Sounds: normal S1 and normal S2; no murmur Vessels: femoral pulses present and radial pulses present; no JVD Extremities: no edema Gastrointestinal (Abdomen): Inspection/Auscultation: abdomen normal to inspection and normal bowel sounds; abdomen not distended Percussion/Palpation: abdomen soft; abdomen nontender, no guarding and abdomen not rigid Neurologic: CN's II-XI intact bilaterally and moves all extremities Results & Data Results & Data Diagnostic Findings Lexiscan nuclear stress test report 07/06/2024: Abnormal Lexiscan nuclear myocardial perfusion imaging study demonstrating a small area of mild mid anterior wall ischemia. Findings may represent diagonal branch vessel disease as the left ventricular apex is not involved, however, LAD ischemia can not be excluded. Gated SPECT images reveals normal myocardial thickening and wall motion. The LV ejection fraction is calculated at 71%. This study has what is deemed to be a "significant abnormality" consistent with ACT 112. See additional documentation regarding notification of patient and ordering provider. 2D echocardiogram report 07/18/2024: The left ventricular cavity size is normal. The LV wall thickness is mildly increased (concentric). Mild hypokinesis of the apical septum, otherwise normal wall motion The qualitative LV ejection fraction is 60-64% (normal). The left ventricular diastolic function is mildly abnormal (grade I). Moderate aortic valve sclerosis is present. The tricuspid valve anatomy is normal. Mild tricuspid regurgitation is present. Compared to prior study of June 28, 2022, there is no significant change.
--- NOTE | 2024-08-09 08:13 | Pre Anesthesia Assessment ---
Date of Service August 09, 2024 Pre Sedation Assessment Vital Signs Temp Pulse Resp BP Pulse Ox O2 Del Method 08/09/24 07:05 36.6 C 62 19 135/80 99 Room Air Cardiovascular + regular rate and + regular rhythm + S1 normal and + S2 normal; no murmur + femoral pulses present and + radial pulses present; no JVD and no carotid bruit no edema Respiratory + respiratory effort normal; no respiratory distress no crackles, no rales, no rhonchi and no wheezes Pre-Sedation Airway Assessment Smoking Status: Current some day smoker Hx Sleep Apnea: No Short, Thick Neck: No Thyromental Distance: > or= 3.5 Finger Breadths Oral Cavity: + WNL Mallampati Class: III ASA: ASA3 NPO Status Date of Last Intake of Fluids: 08/08/24 Time of Last Intake of Fluids: 22:00 Date of Last Intake of Solid Food: 08/08/24 Time of Last Intake of Solid Foods: 22:00 Procedure Planning Contraindications for Sedation: none Current Medications Reviewed: Yes Notes The planned sedation has been discussed with the patient. Informed Consent was obtained. I have identified the patient, determined the appropriateness of sedation and have assessed the patient immediately prior to the procedure. All medicine(s) and interventions are by my order.
[2024-08-09] MEDS: niCARdipine 2,000 MCG/20 ML SYR ONE (08:32)
[2024-08-09] MEDS: NITROGLYCERIN/D5W 100MCG/ML 20ML SYR ONE (08:33)
[2024-08-09] MEDS: MIDAZOLAM HCL 1 MG/ML 2ML VIAL ONE ×4 (08:33→10:52)
--- NOTE | 2024-08-09 09:13 | Post Anesthesia Assessment ---
Date of Service August 09, 2024 Post Sedation Assessment Vital Signs Temp Pulse Resp BP Pulse Ox O2 Del Method 08/09/24 07:05 36.6 C 62 19 135/80 99 Room Air Recovery Score Activity: Moves 4 extremities Respiration: Deep Breath/Cough Circulation: +/-20% PreAnes Value Consciousness: Fully Awake Oxygen Saturation: > 92% On Room Air Discharge Sedation Level of Care: Phase I Post Sedation Plan On clinical assessment, the patient appears to have tolerated the sedation without complications. Patient is recovering as anticipated. Patient will continue to be monitored by nursing and may be discharged when sedation discharge criteria are met per below protocol. Upon Completions of procedure up to 15 minutes continue every 5 minute vital signs and the P.A.R. score; then discharge to a Phase I or Fast Track to Phase II per the following guidelines: * Discharge Patient to appropriate Phase II area if PAR is 8 or greater or return to pre- procedure baseline. The post - procedure orders will be as directed. * If PAR score is less than 8 or not return to pre-procedure baseline then patient will follow Phase I monitoring till PAR is reached for Phase II. The Phase I may be done in procedure room or may call to secure a Phase I area. * If naloxone or flumazenil are used for reversal, hold in Phase I for continued monitoring from when last reversal dose was given for a minimum of 60 minutes or longer pending the nurse and/or physician discretion of patient condition before discharge to Phase II. Please call the Sedation Physician to re-evaluate and complete post-note for discharge to Phase II area. Do NOT discharge from procedure sedation or Phase 1 until post- sedation evaluation note is complete by procedure /sedation MD Sedation Discharge Instructions to be given to the patient at discharge to home.
--- NOTE | 2024-08-09 09:36 | Cardiac Catheterization ---
Cardiac Cath Procedure Full Procedure Date August 09, 2024 Pre-Procedure Diagnosis Pre-Procedure Diagnosis: Angina and Positive Stress Test AUC Score AUC Score: 8 Post-Procedure Diagnosis Post-Procedure Diagnosis: Severe CAD and Normal Intracardiac Pressures Procedure(s) Performed Procedure(s) Performed: Coronary Angiography, PTCA and Drug Eluting Stent Car Stereo Installer Dexter Morales DO Contracts Law Professor(s) Annabel DINH Estimated Blood Loss Estimated Blood Loss: 5cc Medication(s) Medication(s): Fentanyl, Heparin, Lidocaine 1%, Nicardipine, Nitroglycerin and Versed Summary of Findings Diffuse diabetic coronary artery disease. 70% Mid LAD distal to previously implnated sent and septal res habilitation assistant. 70% distal LAD unchanged from previous study. 80% ostial D1 'pinched' by LAD stent and not amenable to PCI. Patent proximal and mid RCA stent with 20% ISR Hemodynamics Rest Ao:: 135/65/97 Final Ao: 152/63/79 LV: 155/0/7 Recommendations Recommendations: PCI without planned CABG Specimens Specimens: None Radiation Exposure (mGy) 393 Contrast (mls) 50 Drains Drains: N/A Anesthesia Moderate sedation. Start 0828. End 0902. Sedation monitor: Joao DINH Procedural Complication(s) None Disposition Patient remained in Electrical Prospecting Engineer for PCI. I attest to the content of the Intraoperative Record and any orders documented therein. Any exceptions are noted below. ACC Data: Electrical Prospecting Engineer Cardiac Status Clinical evaluation leading to the procedure 74-year-old female with history of diffuse diabetic coronary disease status post stenting of the left anterior descending artery and right coronary arteries. Recently presented to outpatient cardiology clinic with complaints of shortness of breath and chest discomfort. Lexiscan nuclear stress test demonstrating a nterior ischemia suggesting possible LAD or diagonal branch vessel stenosis. CAD Presenation: Stable angina Anginal Classification: CCS III Heart Failure: No Coronary Anatomy Dominant: Right Left Main (% Stenosis): Normal LAD (% Stenosis): Proximal (patent stent), Mid (70% with diffuse disease) and Distal (70%, small caliber, diffuse disease) D1 (% Stenosis): Ostial (80%) Circumflex (% Stenosis): Proximal (10%) and Mid (20% diffuse) OM1 (% Stenosis): Proximal (Diffuse disease throughout the vessel with stenosis ranging up to 50%.) RCA (% Stenosis): Proximal (20% prior to stent, patent stent with 20% ISR) and Mid (Patent stent with 20% ISR) R PDA (% Stenosis): Mid (small vessel, luminal irregularities, 10%) R PL1 (% Stenosis): Proximal (Small vessel, luminal irregularities, 30%) R PL2 (% Stenosis): Mid (Small vessel, luminal irregularities, 30%) Diagnostic Physicians Name: Dexter Morales DO Closure Device Percutaneous Entry Location: Radial Closure Device: Radial Band Recommendations: PCI without planned CABG Intraprocedure Events Significant Disection: No Perforation: No
[2024-08-09] MEDS: fentaNYL citrate PF 100 MCG/2 ML VIAL ONE ×2 (10:12→10:52)
[2024-08-09] MEDS ORDERED: INDOMETHACIN 25 MG CAP PO PRN (10:22)
[2024-08-09] MEDS ORDERED: POLYETHYLENE (MIRALAX) 17 GM PACK PO PRN (10:22)
[2024-08-09] MEDS ORDERED: traMADol HCL 50 MG TABLET PO PRN (10:22)
[2024-08-09] MEDS ORDERED: NITROGLYCERIN SL 0.4 MG/TAB TAB SL PRN (10:22)
[2024-08-09] MEDS ORDERED: ALBUTEROL HFA 8 GM INHALER INH PRN ×3 (10:22→16:55)
[2024-08-09] MEDS: ONDANSETRON INJ 2 MG/ML 2 ML VIAL ONE (10:29)
[2024-08-09] MEDS: HEPARIN (PORCINE) 1000 UNIT/ML 10 ML (CATH LAB USE ONLY) ONE (10:39)
[2024-08-09] MEDS: IODIXANOL (VISIPAQUE) 320 MG/ML 100ML IV ONE (10:52)
--- NOTE | 2024-08-09 11:18 | Post Anesthesia Assessment ---
Date of Service August 09, 2024 Post Sedation Assessment Vital Signs Temp Pulse Resp BP Pulse Ox O2 Del Method 08/09/24 07:05 97.8 F 62 19 135/80 99 Room Air Recovery Score Activity: Moves 4 extremities Respiration: Deep Breath/Cough Circulation: +/-20% PreAnes Value Consciousness: Fully Awake Oxygen Saturation: > 92% On Room Air Discharge Sedation Level of Care: Fast Track Phase II Post Sedation Plan On clinical assessment, the patient appears to have tolerated the sedation without complications. Patient is recovering as anticipated. Patient will continue to be monitored by nursing and may be discharged when sedation discharge criteria are met per below protocol. Upon Completions of procedure up to 15 minutes continue every 5 minute vital signs and the P.A.R. score; then discharge to a Phase I or Fast Track to Phase II per the following guidelines: * Discharge Patient to appropriate Phase II area if PAR is 8 or greater or return to pre- procedure baseline. The post - procedure orders will be as directed. * If PAR score is less than 8 or not return to pre-procedure baseline then patient will follow Phase I monitoring till PAR is reached for Phase II. The Phase I may be done in procedure room or may call to secure a Phase I area. * If naloxone or flumazenil are used for reversal, hold in Phase I for continued monitoring from when last reversal dose was given for a minimum of 60 minutes or longer pending the nurse and/or physician discretion of patient condition before discharge to Phase II. Please call the Sedation Physician to re-evaluate and complete post-note for discharge to Phase II area. Do NOT discharge from procedure sedation or Phase 1 until post- sedation evaluation note is complete by procedure /sedation MD Sedation Discharge Instructions to be given to the patient at discharge to home.
--- NOTE | 2024-08-09 11:31 | Cardiac Catheterization ---
[facility] Data: Lab Animal Technician Cardiac Status Clinical evaluation leading to the procedure CAD Presenation: Positive Stress Test Diagnostic Physicians Name: Davie Gomez MD Closure Device Recommendations: PCI without planned CABG Cardiac Cath Procedure Full Procedure Date August 09, 2024 Pre-Procedure Diagnosis Pre-Procedure Diagnosis: Angina and Positive Stress Test AUC Score AUC Score: 8 Post-Procedure Diagnosis Post-Procedure Diagnosis: Severe CAD and Successful PCI Procedure(s) Performed Procedure(s) Performed: Coronary Angiography, Drug Eluting Stent and Procedure (Intracoronary lithotripsy) Customer Support Associate Davie Gomez MD Division Chair(s) Annabel DINH Estimated Blood Loss Estimated Blood Loss: 30 Medication(s) Medication(s): Clopidogrel, Fentanyl, Heparin, Nicardipine, Nitroglycerin and Versed Summary of Findings Indication: Angina, abnormal stress test. History of coronary disease post prior LAD/diagonal stents Access: 6 Fr right radial artery Catheters: EBU 3.5 guide Findings: For full details of patient's coronary angiography please see cath report dictated by Dr. Morales. Briefly, patient found to have severe heavily calcified mid LAD disease just distal to prior stent. Decision to proceed with PCI. -- PCI -- Antithrombotic therapy: Heparin, clopidogrel Procedure: Left main cannulated with EBU 3.5 guide Pre-procedure flow JACKIE 3 After attempts with multiple wires eventually able to pass [place] blue wire passed across lesion into distal vessel Distal intraluminal position confirmed via injection through Corsair catheter Wire exchanged for a long [employer] support wire GuideLiner support catheter placed to proximal LAD Mid LAD predilated with 1.5, 2.0 and 2.5 balloons Mid LAD further dilated with shockwave intravascular lithotripsy (2.5 balloon, 60 pulses). Dilated lesion stented with 2.5 x 15 mm Good drug-eluting stent overlapping distal aspect of prior stents Stent post-dilated with 2.5 noncompliant balloon IC vasodilators administered for spasm Residual calcified stenosis just distal to placed stent. Second BANDAR (2.25 x 15 mm Good) placed to mid LAD overlapping distal aspect of initial stent Stent aggressively postdilated with 2.5 NC. Distal aspect of stent resistant to expansion and mild to moderate residual stenosis in distal aspect of stent. Post procedure JACKIE 3 flow, with no apparent coronary complications. Arterial Closure: TR band Summary: 1. Successful PCI of mid LAD with intravascular lithotripsy and 2 overlapping BANDAR (2.5 x 15, 2.25 x 15 mm Good). Recommendations: To PCU for continued monitoring Loaded with clopidogrel 600 mg in Lab Animal Technician Continue dual-antiplatelet therapy for at least 1 year, consider extended P2Y12 in the setting of long overlapping stent chain from proximal to mid LAD Continue statin, and ASCVD risk factor modification Consult cardiac Rehab Hemodynamics Rest Ao:: 137/60/90 Final Ao: 142/62/94 LV: -- Recommendations Recommendations: PCI without planned CABG Specimens Specimens: None Radiation Exposure (mGy) 2582 Contrast (mls) 120 Drains Drains: N/A Anesthesia Moderate sedation. Start 0902. End 1054. Sedation monitor: Joao DINH Procedural Complication(s) None Disposition PCU I attest to the content of the Intraoperative Record and any orders documented therein. Any exceptions are noted below. [facility] Card Cath Procedure Codes Moderate Sedation Procedure 1: Sedation/Anesthesia: 94805 Mod Sedation by the same physician;Init15 Min Child Age 5 & Up Angioplasty Procedure 1: Cardiovascular Angioplasty Procedures: 89717 Perq Trluml Coronry Lithotrp Stenting Procedure 1: Cardiovascular Stent Procedures: 68278 Perc transcatheter placement of intracoronary stent(s), with ang PG Care Time/CCT Total # of Minutes Spent Total Time Spent with Patient: Total time spent is greater than 50% in coordination of care (as documented) at patient's floor/unit and/or counseling patient:
[2024-08-09] MEDS ORDERED: CARBOHYDRATES FOR HYPOGLYCEMIA PO PRN (14:00)
[2024-08-09] MEDS ORDERED: GLUCOSE 10 TAB/TUBE PO PRN (14:00)
[2024-08-09] MEDS ORDERED: ONDANSETRON INJ 2 MG/ML 2 ML VIAL IV PRN (14:00)
[2024-08-09] MEDS ORDERED: GLUCOSE 40% GEL 15 GM TUBE PO PRN (14:00)
[2024-08-09] MEDS ORDERED: GLUCAGON FOR INJ 1 MG VIAL SQ PRN (14:00)
[2024-08-09] MEDS ORDERED: DEXTROSE 50% 50 ML SYRINGE IV PRN (14:00)
--- NOTE | 2024-08-09 14:03 | Hospitalist Consultation ---
Date of Consultation August 09, 2024 Assessment & Plan (1) Abnormal nuclear stress test: (2) Status post insertion of drug-eluting stent into left anterior descending (LAD) artery for coronary artery disease: (3) HTN (hypertension): (4) Diabetes mellitus type 2 with complications: (5) Major depressive disorder: (6) Migraine headache with aura: (7) Hypertension: (8) COPD (chronic obstructive pulmonary disease): (9) Tobacco use: (10) Obstructive sleep apnea: Plan This is a 74-year-old female with PMH of type 2 diabetes, dyslipidemia, COPD, LUISA, history of CAD status post PCI today, autoimmune hepatitis, CKD 3, mood disorder and other medical problems listed below who presented for cardiac cath following abnormal outpatient stress test. CAD s/p PCI Cardiac catheterization today for abnormal stress test - post cath dx of severe CAD and successful PCI of mid LAD with intravascular lithotripsy and 2 overlapping BANDAR Managed by primary service continue aspirin, plavix, statin, Toprol Resume Lasix per cards tomorrow DM II A1c 7.5 08/01/24 Hold home agents SSI while in-patient BSG AC HS CKD III Baseline Cr 1.2 COPD Not on O2 at baseline Continue Stiolto Respimat inh, PRN albuterol Mood disorder Continue Fluoxetine QAM, Klonopin 0.5mg BID per home HLD Continue statin, Zetia H/o migraines Ajovy inj (due end of month), chlorzoxazone HS, Amitriptyline HS GERD Protonix BID LUISA Mild, non-compliant with cpap Code status: FULL PCP: Luis Dispo: Observation PCU Patient seen in collaboration with Dr. Argueta. Please see addendum. I spent a total of 50 minutes coordinating, documenting, and providing care for this patient excluding time spent in the performance of separately billed services. Thank you for this consultation. We will follow the patient with you during their hospital stay. You can reach a member of the [facility] Hospitalist Team 14/03 via [employer]. Supervising Physician Co-Signing Physician Notes Patient seen and examined No complaints at this time Hold home antidiabetic regimen Do insulin sliding scale for now Continue Aspirin, plavix and rosuvastatin Continue other home meds I spent a total of 40 minutes coordinating, documenting and providing care for this patient excluding time spent in performance of separately billed services History of Present Illness Reason for Consultation: Post-cath diabetes management Attending Physician: Dexter Morales DO History of Present Illness This is a 74-year-old female with PMH of type 2 diabetes, dyslipidemia, COPD, LUISA, history of CAD status post PCI today, autoimmune hepatitis, CKD 3, mood disorder and other medical problems listed below who presented for cardiac cath following abnormal outpatient stress test. Underwent cardiac catheterization today with diagnosis of severe CAD and successful PCI of mid LAD with intravascular lithotripsy and 2 overlapping BANDAR. Patient is observed in PCU and we are consulted to help with insulin management. Seen after procedure in 458 bed 1. Feeling well aside from some tenderness at radial access site right wrist. Intermittent chest discomfort following procedure but has since resolved. Denies any other acute symptoms. No fever, chills, shortness of breath, nausea, vomit, vomiting, dysuria, diarrhea constipation. Reviewed outpatient med list. Hemoglobin A1c of 7.5 08/01/2024. Only takes Metformin and Actos at home for DM mgmt. Allergies Allergy/AdvReac Type Severity Reaction Status Date / Time Penicillins Allergy Intermediate HIVESSWELL Verified 08/09/24 07:16 ING [place] Inhibitors AdvReac Unknown Cough Verified 08/09/24 07:16 ARB-Angiotensin Receptor AdvReac Unknown Hyperkalemi Verified 08/09/24 07:16 Antagonist a levofloxacin AdvReac Unknown Joint Pain Verified 08/09/24 07:16 losartan AdvReac Unknown Hyperkalemi Verified 08/09/24 07:16 a sodium fluoride AdvReac Unknown Lips crack Verified 08/09/24 07:16 [From Fluoritab] open Home Medications Medication Instructions Recorded Confirmed Type amitriptyline 10 mg tablet 10 mg PO HS 01/31/19 08/09/24 History aspirin 81 mg tablet,delayed 81 mg PO DAILY 01/31/19 08/09/24 History release (Aspir-) clopidogrel 75 mg tablet (Plavix) 75 mg PO DAILY 01/31/19 08/21/19 History melatonin 3 mg tablet 3 mg PO HS 01/31/19 08/09/24 History metoprolol succinate 100 mg 100 mg PO BID 01/31/19 08/09/24 History tablet,extended release 24 hr (Toprol XL) nitroglycerin 0.4 mg sublingual 0.4 mg sublingual DIRECTED PRN 01/31/19 08/09/24 History tablet (Nitrostat) Chest Pain ondansetron HCl 4 mg tablet 4 mg PO Q8H PRN Nausea 01/31/19 08/09/24 History (Zofran) pantoprazole 40 mg tablet,delayed 40 mg PO BID 01/31/19 08/09/24 History release polyethylene glycol 3350 17 gram 17 g PO DAILY PRN Constipation 01/31/19 08/09/24 History oral powder packet (Miralax) rosuvastatin 40 mg tablet (Crestor) 40 mg PO QPM 01/31/19 08/09/24 History albuterol sulfate 90 mcg/actuation 2 puff inhalation Q4H PRN 08/21/19 08/09/24 History aerosol inhaler Shortness Of Breath Or Wheezing calcium 500 mg (as 1 tab PO QPM 08/21/19 08/09/24 History carbonate)-vitamin D3 3.125 mcg (125 unit) tablet (Calcium) chlorzoxazone 500 mg tablet 500 mg PO HS 08/21/19 08/09/24 History clonazepam 1 mg tablet 0.5 mg PO HS 08/21/19 08/09/24 History clonazepam 1 mg tablet 0.5 mg PO QAM 08/21/19 08/09/24 History ezetimibe 10 mg tablet 10 mg HS 08/09/24 08/09/24 History fluoxetine 40 mg capsule 40 mg QAM 08/09/24 08/09/24 History fremanezumab-vfrm 225 mg/1.5 mL 225 mg subcut MONTHLY 08/09/24 08/09/24 History subcutaneous auto-injector (Ajovy) furosemide 20 mg tablet 20 mg PO DAILY 08/09/24 08/09/24 History metformin 1,000 mg tablet 1,000 mg BID 08/09/24 08/09/24 History pioglitazone 45 mg tablet 45 mg PO QAM 08/09/24 08/09/24 History tiotropium 2.5 mcg-olodaterol 2.5 2 inh inhalation DAILY 08/09/24 08/09/24 History mcg/actuation mist for inhalation (Stiolto Respimat) Patient History Medical History (Updated 08/09/24 @ 15:55 by Milana Cano PA-C) COPD (chronic obstructive pulmonary disease) Hyperlipidemia Angina pectoris Sarcoidosis Obstructive sleep apnea Lumbar disc herniation Gastroparesis Cervical disc disorder ASCVD (arteriosclerotic cardiovascular disease) Heart attack Heart disease Surgical History History of cardiac cath stent placed on 01/29/2019 and 10/13/2018 (mid-LAD stent placed in 09/2018 with restenosis and restented on 01/29/2019) H/O total hysterectomy Status post trigger finger release History of tonsillectomy and adenoidectomy History of arthroscopic knee surgery History of carpal tunnel surgery Family History Other Diabetes Hypertension Stroke Social History Smoking Status: Current some day smoker Tobacco Type: Cigarettes Cigarettes Per Day: 10; Second Hand Exposure: No; Do You Dip or Chew Tobacco: No; Hx Alcohol Use: No Hx Substance Use: No Preferred Language: Urdu Communication Ability: Effective [employer] Required: No Beliefs That Will Affect Care: None Current Living Situation: Spouse current occupational status: retired current occupation: Retired Feels Safe at Home: Yes Assistive Devices: None Review of Systems Review of Systems: At least ten systems reviewed and negative except as noted in the HPI. Physical Exam Physical Exam: General Appearance: WD/WN, vitals as above, NAD, sitting up in bed, pleasant, conversing easily Head: normocephalic, atraumatic Eyes: normal inspection ENT: external ear and nose normal, oropharynx normal Neck: normal visual inspection Respiratory: normal respiratory effort, lungs clear to auscultation, no wheeze, rales, rhonchi. No accessory muscle use Cardiovascular: regular rate, rhythm, no BLE edema. Vessels: no JVD, + R wrist examined, tender no bleeding Chest: normal inspection of chest Abdomen/GI: normal bowel sounds, soft, nontender, no hepatosplenomegaly Extremities/Musculoskeletal: no cyanosis or clubbing, extremities motor strength 5/5 Neurologic: PERRL, EOMI, accommodation nl, no face palsy, no dysarthria, CN's II-XI intact bilaterally and moves all extremities Psychiatric: A+Ox3, euthymic affect Skin: no rashes, normal color, warm/dry Results & Data Results & Data Vital Signs (Past 12 Hours) Vital Signs Temp Pulse Pulse Resp BP Pulse Ox O2 Del Method 08/09/24 13:45 63 14 158/83 H 96 Room Air 08/09/24 13:28 62 14 142/71 H 96 Room Air 08/09/24 13:15 62 14 142/71 H 96 Room Air 08/09/24 13:00 63 14 124/67 96 Room Air 08/09/24 12:45 58 L 14 146/78 H 96 Room Air 08/09/24 12:30 57 L 14 148/74 H 96 Room Air 08/09/24 12:15 60 14 150/78 H 96 Room Air 08/09/24 12:00 57 L 14 146/90 H 96 Room Air 08/09/24 11:45 57 L 14 146/90 H 96 Room Air 08/09/24 11:30 55 L 14 139/77 96 Room Air 08/09/24 11:15 56 L 14 146/79 H 96 Room Air 08/09/24 07:05 36.6 C 62 19 135/80 99 Room Air
[2024-08-09] MEDS: CLOPIDOGREL BISULFATE 300 MG TAB ONE (14:34)
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
--- OUTSIDE RECORDS SUMMARY | 2024-08-09 14:34 | External Medical Summary | Summary of Care ---
Author Name Unknown Organization [facility] Address [address] [facility] [place] [address] Phone [phone] Care Team Providers Care Train Examiner Name Role Phone Brent Smith MD Primary Care Provider + Reason for Visit * Reason Onset Date Comments Test Results 08/06/2024 Encounter Details Date Type Department Care Team (Late st Contact Info) Description 08/06/2024 Telephone Family Practice [facility] [address] [place] [address] Jenise Bone CRNP [address] [place] [address] Test Results Allergies Active Allergy Reactions Criticality [...] as of this encounter (statuses as of 08/06/2024) Medications ASPIRIN 81 MG PO TABS Take [...] 90 Tablet 3 3 Active Nystatin-Triamcin olone 121245-2.1 UNIT/GM-% External Ointment (Mycolog)Indicati ons:Dermatitis Apply topically to affected area 3 times a day. Apply to affected area 15 g 1 3 Active Furosemide 20 MG Oral Tablet (Lasix)Indication s:HTN, goal below 140/90,Coronary artery disease involving [place] heart without angina pectoris, unspecified vessel or [...] MEALS 180 Tablet 3 4 Active Pen [place] 32G X 4 MMIndications:Typ e 2 diabetes [...] DINNER 90 Tablet 1 4 Active Tiotropium [place]-Olodatero l 2.5-2.5 MCG/ACT Inhalation Aerosol Solution (Stiolto [...] morning. 90 Tablet 3 4 Active Nystatin 798919 UNIT/GM External Cream Apply topically to affected area 2 times a day for two weeks. 30 g 1 07/25/2024 9:39 AM EST 4 Active documented as of this encounter (statuses as of 08/06/2024) Active Problems Problem Noted Date Diagnosed Date [...] Dr Kaushal Giang. 11/19/20 MRI C-Spine in [place]. DDD most C5-6. Mod central canal and mod left foraminal stenosis. Had C5-6 b/l NATAN 03/10 colon @[facility]--WNL angie 10y 03/07 MRI lumbar some arthritis [...] artery disease) 07/07/2012 Overview (07/07/2015): STENT 2007 [facility] [place] 2004 HTN, goal below 140/90 04/10/2012 Overview: Per HTN Protocol #27. Type 2 diabetes mellitus wit h hemoglobin A1c goal of less than 8.0% 08/06/2009 Overview (12/18/2015): Per Lipid Taxonomy. ICD-10 update of inactive term Old myocardial infarct 03/13/2009 Overview (06/13/2013): INFEROLATERAL [place] 2003 Chronic rhinitis 10/07/2008 Gastroparesis 04/27/2007 Sarcoidosis 05/12/2005 Overview (05/05/2016): DX 2004 EGD showing nonnecrotizing granuloma stomach + wt loss. Saw pulm. FAMILY HX-GI MALIGNANCY 02/09/2005 documented as of this encounter (statuses as of 08/06/2024) Resolved Problems Problem Noted Date Diagnosed Date Resolved Date Coronary artery disease invo lving [place] coronary artery of [place] heart with unstable angina pectoris 09/05/2019 08/06/2021 [...] infarction 03/13/2009 Overview (03/13/2009): Modified by Acute [place] Protocol #5. Major depressive disorder, r ecurrent episode, moderate 06/13/2013 documented as of this encounter (statuses as of 08/06/2024) Immunizations Name Administration Dates Next Due COVID-19 mRNA, LNP-s, No Pre serve, 2-Dose Series (Moderna) 10/27/2020,09/29/2020 COVID-19, LNP-s, No Preserve , Klaus-sucrose, Ages 12+ (Pfizer) 03/17/2022 COVID-19, MRNA-LNP, 24-25, P R, 30MCG/0.3ML, IM, 12YRS AND ABOVE ([employer]-Comirnaty) 05/29/2024 COVID-19, MRNA-LNP, PF, 30 M CG/0.3 mL, 12 YRS AND ABOVE, IM ([employer]-Comirnaty) 06/07/2023 COVID-19, mRNA, LNP-s, PF, B ooster, 100mcg/0.5mg (Moderna) 07/03/2021 Covid-19, Mrna, Lnp-s, Pf, B ivalent, 30 Mcg, IM, 12 yrs and above ([employer]) 08/18/2022 H1N1 2009 Influenza, IM 09/05/2009 Hepatitis [...] Date Smoking Tobacco: Every Day Cigarettes 0.5 60 Started: 1965 Passive Smoke Exposure: Past Smokeless [...] 12:00 PM EDT Lali Renteria LUISA * Do you have serious difficulty walking or climbing stairs? (5 years old or older) Answer Date of Assessment Author Yes 11/08/2014 12:00 PM EDT Lali Renteria LUISA * Do you have difficulty dressing [...] 11/08/2014 12:00 PM EDT Lali Renteria LUISA documented as of this encounter Mental Status * Because of a physical, mental, or emotional condition, do you have serious difficulty concentrating, remembering, or making decisions? (5 years old or older) Answer Entry Date Author Yes 11/08/2014 12:00 PM EDT Lali Renteria LUISA documented in this encounter Miscellaneous Notes * Telephone Encounter - Jenise Bone CRNP - 08/06/2024 2:51 PM EST Patient aware of ultrasound results. Denies constipation but going less lately. Denies abdominal pain or fever or diarrhea. Agreeable to KUB. Padilla, ALY, JUAN MANUEL [facility] Family Medicine documented in this encounter Plan of Treatment Upcoming Encounters Date Type Department Care Team (Late st Contact Info) Description 08/28/2024 9:45 AM EST Imaging [facility] [address] [place] [address] 08/28/2024 11:00 AM EST Office Visit Interventional Pain Center, [facility] [address] [place] [address] Zi Ramirez, [address] [place] [phone] 08/30/2024 9:40 AM EST Office Visit Rheumatology [facility] [address] [facility] [place], [place] [address] Matthew Mari MD [address] [facility] [place], [place] [address] 09/10/2024 8:00 AM EST Telemedicine Psychiatry, [facility] [place] [address] Pedro Luis Casas CRNP [address] [place] [address] 09/17/2024 11:30 AM EST Office Visit Hematology/Oncology [facility] [address] [facility] [place], [place] [phone] Angela Renteria CRNP [address] [place] [address] [place] [address] 09/25/2024 10:00 AM EST Office Visit Pharmacy, [facility] [place] [address] [facility] [address] [facility] [place] [address] 10/08/2024 9:00 AM EST Office Visit Dermatology [facility] [place] [address] [place] [address] Justyna Krishnamurthy PA-C [address] [facility] [place] [address] 11/19/2024 9:20 AM EDT Office Visit Hepatology, [facility] [address] [place] [address] Lali Chowdhury DO [address] [place] [address] 11/20/2024 7:00 AM EDT Office Visit Neurology [facility] [address] [place] [address] Kendra Montano PA-C [address] [place] [address] 05/31/2025 9:20 AM EDT Office Visit Family Practice [facility] [place] [address] Brent Smith MD [address] [facility] [place] [address] Scheduled Orders Name Type Priority Associated Diagnoses Orde r Schedule XR ABDOMEN 1 VIEW Medical Imaging Routine Abnormal pelvic ultrasound Ordered: 08/06/2024 Scheduled Procedures Name Priority Associated Diagnoses Date/Ti [...] Additional history exists CKD HGB USE SMARTSET 49245 08/01/202508/01, 08/01/2024, 06/28/2024, Additional history exists CKD PHOS USE SMARTSET 53600 08/01/202507/22, 08/05/2023, 08/09/2022, Additional history exists Colonoscopy 11/30/2028 12/01/2023, 11/20, 12/16/2020, Additional history exists Colorectal Cancer Screening 11/30/2028 DXA Scan 06/22/2029 06/22/2022, 11/08/2021, 10/22/2020, Additional history exists DTap/Tdap Vaccines (3 [...] Not on filedocumented as of this encounter Visit Diagnoses Diagnosis Abnormal pelvic ultrasound- Primary Nonspecific (abnormal) findings on radiological and other examination of genitourinary organs documented in this encounter Advance Directives Documents on File Type Date Recorded Patient Bottom Ironer 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 Care Teams Train Examiner Relationship Specialty Start Date End Date Brent Smith MD [address] [facility] [place] [address] PCP - General Family Medicine 04/20/23 documented as of this encounter
--- OUTSIDE RECORDS SUMMARY | 2024-08-09 14:34 | External Medical Summary | Summary of Care ---
Author Name Unknown Organization [facility] Address [address] [facility] [place] [address] Phone [phone] Care Team Providers Care Electronics Hardware Design Engineer Name Role Phone Brent Smith MD Primary Care Provider + Reason for Visit * Reason Onset Date Comments Test Results 08/03/2024 Encounter Details Date Type Department Care Team (Late st Contact Info) Description 08/03/2024 Telephone Hepatology, [facility] [address] [place] [address] Lali Chowdhury DO [address] [place] [address] Test Results Allergies Active Allergy Reactions Criticality [...] as of this encounter (statuses as of 08/03/2024) Medications ASPIRIN 81 MG PO TABS Take [...] 90 Tablet 3 3 Active Nystatin-Triamcin olone 888285-4.1 UNIT/GM-% External Ointment (Mycolog)Indicati ons:Dermatitis Apply topically to affected area 3 times a day. Apply to affected area 15 g 1 3 Active Furosemide 20 MG Oral Tablet (Lasix)Indication s:HTN, goal below 140/90,Coronary artery disease involving [place] heart without angina pectoris, unspecified vessel or [...] MEALS 180 Tablet 3 4 Active Pen [place] 32G X 4 MMIndications:Typ e 2 diabetes [...] DINNER 90 Tablet 1 4 Active Tiotropium [place]-Olodatero l 2.5-2.5 MCG/ACT Inhalation Aerosol Solution (Stiolto [...] morning. 90 Tablet 3 4 Active Nystatin 540401 UNIT/GM External Cream Apply topically to affected area 2 times a day for two weeks. 30 g 1 07/25/2024 9:39 AM EST 4 Active documented as of this encounter (statuses as of 08/03/2024) Active Problems Problem Noted Date Diagnosed Date [...] done. 11/11 Upper endoscopy [place]. 12/10 [place]--upper/lower scope WNL--angie [address] Kaushal Giang. 11/19/20 [place] in [place]. DDD most C5-6. Mod central canal and mod left foraminal stenosis. Had C5-6 b/l NATAN 03/10 colon @[facility]--WNL angie 10y 03/07 MRI lumbar some [...] disease) 07/07/2012 Overview (07/07/2015): STENT 2007 [facility] [place] 2004 HTN, goal below 140/90 04/10/2012 Overview: Per HTN Protocol #27. Type 2 diabetes mellitus wit h hemoglobin A1c goal of less than 8.0% 08/06/2009 Overview (12/18/2015): Per Lipid Taxonomy. ICD-10 update of inactive term Old myocardial infarct 03/13/2009 Overview (06/13/2013): INFEROLATERAL [place] 2003 Chronic rhinitis 10/07/2008 Gastroparesis 04/27/2007 Sarcoidosis 05/12/2005 Overview (05/05/2016): DX 2004 EGD showing nonnecrotizing granuloma stomach + wt loss. Saw pulm. FAMILY HX-GI MALIGNANCY 02/09/2005 documented as of this encounter (statuses as of 08/03/2024) Resolved Problems Problem Noted Date Diagnosed Date Resolved Date Coronary artery disease invo lving [place] coronary artery of [place] heart with unstable angina pectoris 09/05/2019 08/06/2021 [...] infarction 03/13/2009 Overview (03/13/2009): Modified by Acute [place] Protocol #5. Major depressive disorder, r ecurrent episode, moderate 06/13/2013 documented as of this encounter (statuses as of 08/03/2024) Immunizations Name Administration Dates Next Due COVID-19 mRNA, LNP-s, No Pre serve, 2-Dose Series (Moderna) 10/27/2020,09/29/2020 COVID-19, LNP-s, No Preserve , Klaus-sucrose, Ages 12+ (Pfizer) 03/17/2022 COVID-19, MRNA-LNP, 24-25, P R, 30MCG/0.3ML, IM, 12YRS AND ABOVE ([employer]Comirnaty) 05/29/2024 COVID-19, MRNA-LNP, PF, 30 M CG/0.3 mL, 12 YRS AND ABOVE, IM ([employer]-Comirnaty) 06/07/2023 COVID-19, mRNA, LNP-s, PF, B ooster, 100mcg/0.5mg (Moderna) 07/03/2021 Covid-19, Mrna, Lnp-s, Pf, B ivalent, 30 Mcg, IM, 12 yrs and above ([employer] 08/18/2022 H1N1 2009 Influenza, IM 09/05/2009 Hepatitis B Vaccine 08/24/2012,04/13/2012 Hepatitis B, 20+ yrs 11/11/2017,05/02/2017,03/25 Pneumococcal Conjugate Vacc, 13 Valent (Prevnar) 05/27/2015 Pneumococcal Polysaccharide PPV23 (Pneumovax) 08/05/2016,05/13/2013,06/12/2003 Pneumococcal Vaccine, Unspec ified Formulation 05/13/2013 Seasonal Influenza Vac., MDV , IM, 0.5 mL (Fluzone) 06/03/2014,06/07/2013,04/27/2012,05/23,05/07/2010,09/05/2009,06/07/20 08,06/02/2007,06/09/2005,06/12/2003,1 ,07/31/2001 Seasonal Influenza Virus Vac cine, Unspecified Formulation 06/02/2019,04/29/2018,06/01/2006,05/22 Seasonal Influenza, High Dos e, Trivalent, PF, IM (Fluzone HD) 06/28/2024 Seasonal Influenza, PF, 6 M & above, IM , (FluLaval or Fluzone) 06/14/2018 06/14/2019 Seasonal Influenza, Quadriva lent Hd (Fluzone Hd) 05/06/2023,05/13/2022,06/16/2021 Seasonal Influenza, Quadriva lent, No Preserve, IM 05/16/2020,05/10/2017,06/24/2016,01/201506/24/2017 Seasonal Influenza, Trivalen t, Adjuvanted, 65+ YRS, [...] No 05/18/2023 Does the household have a [facility] source of income? (Household - for ages [...] 12:00 PM EDT Lali Renteria LUISA * Are you blind or do [...] No 11/08/2014 12:00 PM EDT Lali Renteria OSA documented as of this encounter Mental Status * Because of a physical, mental, or emotional condition, do you have serious difficulty concentrating, remembering, or making decisions? (5 years old or older) Answer Entry Date Author Yes 11/08/2014 12:00 PM EDT Lali Renteria OSA documented in this encounter Miscellaneous Notes * Telephone Encounter - Lali Chowdhury DO - 08/03/2024 11:11 AM EST Please let patient know recent labs reviewed and LFTs are all normal. Lali Chowdhury DO documented in this encounter Plan of Treatment Upcoming Encounters Date Type Department Care Team (Late st Contact Info) Description 08/28/2024 9:45 AM EST Imaging Radiology [facility] [address] [place] [address] 08/28/2024 11:00 AM EST Office Visit Interventional Pain Center, [facility] [address] [place] [address] Zi Ramirez DO 132 [facility] [place] [phone] 08/30/2024 9:40 AM EST Office Visit Rheumatology [facility] [address] [facility] [place], [place] [address] Matthew Mari MD [address] [facility] [place], [place] [address] 09/10/2024 8:00 AM EST Telemedicine Psychiatry, [facility] [address] [facility] [place] [address] Pedro Luis Casas CRNP [address] [place] [address] 09/17/2024 11:30 AM EST Office Visit Hematology/Oncology [facility] [address] [place], [place] [phone] Angela Renteria CRNP [address] [place] [address] [place] [address] 09/25/2024 10:00 AM EST Office Visit Pharmacy, [facility] [place] [address] [facility] 132 [facility] [place] [address] 10/08/2024 9:00 AM EST Office Visit Dermatology [facility] [place] [address] [facility] [place] [address] Justyna Krishnamurthy PA-C [address] [facility] [place] [address] 11/19/2024 9:20 AM EDT Office Visit Hepatology, [facility] [address] [facility] [place] [address] Lali Chowdhury DO [address] [place] [address] 11/20/2024 7:00 AM EDT Office Visit Neurology [facility] [address] [place] [address] Kendra Montano PA-C [address] [place] [address] 05/31/2025 9:20 AM EDT Office Visit Family Practice [facility] [address] [place] [address] Brent Smith MD [address] [place] [address] Scheduled Procedures Name Priority Associated Diagnoses Date/Ti [...] Additional history exists CKD HGB USE SMARTSET 67197 08/01/202508/01, 08/01/2024, 06/28/2024, Additional history exists CKD PHOS USE SMARTSET 47060 08/01/202507/22, 08/05/2023, 08/09/2022, Additional history exists Colonoscopy [...] Documents on File Type Date Recorded Patient Health And Wellness Director 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 Care Teams Electronics Hardware Design Engineer Relationship Specialty Start Date End Date Brent Smith MD [address] [place] [address] PCP - General Family Medicine 04/20/23 documented as of this encounter
--- OUTSIDE RECORDS SUMMARY | 2024-08-09 14:34 | External Medical Summary | Summary of Care ---
Author Name Unknown Organization [facility] Address [address] [facility] [place] [address] Phone [phone] Care Team Providers Care Adjunct Political Science Instructor Name Role Phone Brent Smith MD Primary Care Provider + Encounter Details Date Type Department Care Team (Late st Contact Info) Description 08/03/2024 Telephone Hepatology, [facility] [address] [place] [address] Lali Chowdhury DO [address] [place] [address] Allergies Active Allergy Reactions Criticality Noted Date [...] 90 Tablet 3 3 Active Nystatin-Triamcin olone 739202-1.1 UNIT/GM-% External Ointment (Mycolog)Indicati ons:Dermatitis Apply topically to affected area 3 times a day. Apply to affected area 15 g 1 3 Active Furosemide 20 MG Oral Tablet (Lasix)Indication s:HTN, goal below 140/90,Coronary artery disease involving [place] heart without angina pectoris, unspecified vessel or [...] MEALS 180 Tablet 3 4 Active Pen [place] 32G X 4 MMIndications:Typ e 2 diabetes [...] DINNER 90 Tablet 1 4 Active Tiotropium [place]-Olodatero l 2.5-2.5 MCG/ACT Inhalation Aerosol Solution (Stiolto [...] morning. 90 Tablet 3 4 Active Nystatin 727227 UNIT/GM External Cream Apply topically to affected [...] Dr Kaushal Giang. 11/19/20 MRI C-Spine in [place]. DDD most C5-6. Mod central canal and mod left foraminal stenosis. Had C5-6 b/l NATAN 03/10 colon @[facility]--WNL angie 10y 03/07 MRI lumbar some arthritis [...] artery disease) 07/07/2012 Overview (07/07/2015): STENT 2007 [facility] [place] 2004 HTN, goal below 140/90 04/10/2012 Overview: Per HTN Protocol #27. Type 2 diabetes mellitus wit h hemoglobin A1c goal of less than 8.0% 08/06/2009 Overview (12/18/2015): Per Lipid Taxonomy. ICD-10 update of inactive term Old myocardial infarct 03/13/2009 Overview (06/13/2013): INFEROLATERAL [place] 2003 Chronic rhinitis 10/07/2008 Gastroparesis 04/27/2007 Sarcoidosis 05/12/2005 Overview (05/05/2016): DX 2004 EGD showing nonnecrotizing granuloma stomach + wt loss. Saw pulm. FAMILY HX-GI MALIGNANCY 02/09/2005 documented as of this encounter (statuses as of 08/03/2024) Resolved Problems Problem Noted Date Diagnosed Date Resolved Date Coronary artery disease invo lving [place] coronary artery of [place] heart with unstable angina pectoris 09/05/2019 08/06/2021 [...] infarction 03/13/2009 Overview (03/13/2009): Modified by Acute [place] Protocol #5. Major depressive disorder, r ecurrent episode, moderate 06/13/2013 documented as of this encounter (statuses as of 08/03/2024) Immunizations Name Administration Dates Next Due COVID-19 mRNA, LNP-s, No Pre serve, 2-Dose Series (Moderna) 10/27/2020,09/29/2020 COVID-19, LNP-s, No Preserve , Klaus-sucrose, Ages 12+ (Pfizer) 03/17/2022 COVID-19, MRNA-LNP, 24-25, P R, 30MCG/0.3ML, IM, 12YRS AND ABOVE ([employer]-Comirnaty) 05/29/2024 COVID-19, MRNA-LNP, PF, 30 M CG/0.3 mL, 12 YRS AND ABOVE, IM ([employer]-Comirnaty) 06/07/2023 COVID-19, mRNA, LNP-s, PF, B ooster, 100mcg/0.5mg (Moderna) 07/03/2021 Covid-19, Mrna, Lnp-s, Pf, B ivalent, 30 Mcg, IM, 12 yrs and above (Pfizer) 08/18/2022 H1N1 2009 Influenza, IM 09/05/2009 Hepatitis [...] encounter Miscellaneous Notes * Telephone Encounter - Lail Chowdhury DO - 08/03/2024 11:11 AM EST Please let patient know recent labs reviewed and LFTs are all normal. Lali Chowdhury DO documented in this encounter Plan of Treatment Upcoming Encounters Date Type Department Care Team (Late st Contact Info) Description 08/28/2024 9:45 AM EST Imaging Radiology [facility] 1st [facility] [address] [facility] [place] [address] 08/28/2024 11:00 AM EST Office Visit Interventional Pain Center, [facility] [address] [facility] [place] [address] Zi Ramirez DO 132 [facility] [place] [address] 08/30/2024 9:40 AM EST Office Visit Rheumatology [address] [place], [place] [address] Matthew Mari MD [address] [facility] [place] [address] 09/10/2024 8:00 AM EST Telemedicine Psychiatry, [facility] [address] [facility] [place] [address] Pedro Luis Casas CRNP [address] [place] [address] 09/17/2024 11:30 AM EST Office Visit Hematology/Oncology [facility] 200 [facility] [place] [phone] Angela Renteria CRNP [address] [facility] [address] 09/25/2024 10:00 AM EST Office Visit Pharmacy, [facility] 132 [facility] [place] [address] [facility] [address] [facility] [place] [address] 10/08/2024 9:00 AM EST Office Visit Dermatology [facility] [address] [place] [address] Justyna Krishnamurthy PA-C [address] [place] [address] 11/19/2024 9:20 AM EDT Office Visit Hepatology, [facility] [address] [place] [address] Lali Chowdhury DO [address] [place] [address] 11/20/2024 7:00 AM EDT Office Visit Neurology [facility] [address] [place] [address] Kendra Montano PA-C [address] [place] [address] 05/31/2025 9:20 AM EDT Office Visit Family Practice [facility] [address] [place] [address] Brent Smith MD [address] [place] [address] Scheduled Procedures Name Priority Associated Diagnoses Date/Ti [...] Additional history exists CKD HGB USE SMARTSET 40771 08/01/202508/01, 08/01/2024, 06/28/2024, Additional history exists CKD PHOS USE SMARTSET 29256 08/01/202507/22, 08/05/2023, 08/09/2022, Additional history exists Colonoscopy 11/30/2028 12/01/2023, 11/20, 12/16/2020, Additional history exists Colorectal Cancer Screening 11/30/2028 DXA Scan 06/22/2029 06/22/2022, 1108/2021, 10/22/2020, Additional history exists DTap/Tdap Vaccines (3 [...] Documents on File Type Date Recorded Patient Gemologist 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 Care Teams Adjunct Political Science Instructor Relationship Specialty Start Date End Date Brent Smith MD [address] [place] [address] PCP - General Family Medicine 04/20/23 documented as of this encounter
--- OUTSIDE RECORDS SUMMARY | 2024-08-09 14:35 | External Medical Summary | Summary of Care ---
Author Name Unknown Organization [facility] Address [address] [facility] [place] [address] Phone [phone] Care Team Providers Care Slope Tender Name Role Phone Brent Smith MD Primary Care Provider + Reason for Visit * Reason Onset Date Comments Test Results 08/01/2024 Encounter Details Date Type Department Care Team (Late st Contact Info) Description 08/01/2024 Telephone Cardiology, [facility] [address] [place] [address] Markell Brooks, PAEddyC [address] [employer] [place] [id number] Test Results Allergies Active Allergy Reactions Criticality [...] as of this encounter (statuses as of 08/01/2024) Medications ASPIRIN 81 MG PO TABS Take [...] 90 Tablet 3 3 Active Nystatin-Triamcin olone 875192-8.1 UNIT/GM-% External Ointment (Mycolog)Indicati ons:Dermatitis Apply topically to affected area 3 times a day. Apply to affected area 15 g 1 3 Active Furosemide 20 MG Oral Tablet (Lasix)Indication s:HTN, goal below 140/90,Coronary artery disease involving [place] heart without angina pectoris, unspecified vessel or [...] MEALS 180 Tablet 3 4 Active Pen Macy 32G X 4 MMIndications:Typ e 2 diabetes [...] DINNER 90 Tablet 1 4 Active Tiotropium [place]-Olodatero l 2.5-2.5 MCG/ACT Inhalation Aerosol Solution (Stiolto [...] morning. 90 Tablet 3 4 Active Nystatin 160850 UNIT/GM External Cream Apply topically to affected area 2 times a day for two weeks. 30 g 1 07/25/2024 9:39 AM EST 4 Active documented as of this encounter (statuses as of 08/01/2024) Active Problems Problem Noted Date Diagnosed Date [...] Dr Kaushal Giang. 11/19/20 MRI [place] in [place]. DDD most C5-6. Mod central canal and mod left foraminal stenosis. Had C5-6 b/l NATAN 03/10 colon @[facility]--WNL angie 10y 03/07 MRI lumbar some [...] 2007 [facility], [place] 2004 HTN, goal below 140/90 04/10/2012 Overview: Per HTN Protocol #27. Type 2 diabetes mellitus wit h hemoglobin A1c goal of less than 8.0% 08/06/2009 Overview (12/18/2015): Per Lipid Taxonomy. ICD-10 update of inactive term Old myocardial infarct 03/13/2009 Overview (06/13/2013): INFEROLATERAL [place] 2003 Chronic rhinitis 10/07/2008 Gastroparesis 04/27/2007 Sarcoidosis 05/12/2005 Overview (05/05/2016): DX 2004 EGD showing nonnecrotizing granuloma stomach + wt loss. Saw pulm. FAMILY HX-GI MALIGNANCY 02/09/2005 documented as of this encounter (statuses as of 08/01/2024) Resolved Problems Problem Noted Date Diagnosed Date Resolved Date Coronary artery disease invo lving [place] coronary artery of [place] heart with unstable angina pectoris 09/05/2019 08/06/2021 [...] infarction 03/13/2009 Overview (03/13/2009): Modified by Acute [place] Protocol #5. Major depressive disorder, r ecurrent episode, moderate 06/13/2013 documented as of this encounter (statuses as of 08/01/2024) Immunizations Name Administration Dates Next Due COVID-19 mRNA, LNP-s, No Pre serve, 2-Dose Series (Moderna) 10/27/2020,09/29/2020 COVID-19, LNP-s, No Preserve , Klaus-sucrose, Ages 12+ (Pfizer) 03/17/2022 COVID-19, MRNA-LNP, 24-25, P R, 30MCG/0.3ML, IM, 12YRS AND ABOVE ([employer]-Comirnaty) 05/29/2024 COVID-19, MRNA-LNP, PF, 30 M CG/0.3 mL, 12 YRS AND ABOVE, IM ([employer]-Comirnaty) 06/07/2023 COVID-19, mRNA, LNP-s, PF, B ooster, 100mcg/0.5mg (Moderna) 07/03/2021 Covid-19, Mrna, Lnp-s, Pf, B ivalent, 30 Mcg, IM, 12 yrs and above ([employer] Apps) 08/18/2022 H1N1 2009 Influenza, IM 09/05/2009 Hepatitis [...] Author No 11/08/2014 12:00 PM Lali Graf OSA documented as of this encounter Mental Status * Because of a physical, mental, or emotional condition, do you have serious difficulty concentrating, remembering, or making decisions? (5 years old or older) Answer Entry Date Author Yes 11/08/2014 12:00 PM Lali Graf OSA documented in this encounter Miscellaneous Notes * Telephone Encounter - Jackie Kan LPN - 08/01/2024 12:48 PM EST Stew message sent. * Telephone Encounter - Jackie Kan LPN - 08/01/2024 12:47 PM EST ----- Message from Markell Brooks sent at 08/01/2024 12:46 PM EST ----- ok documented in this encounter Plan of Treatment Upcoming Encounters Date Type Department Care Team (Late st Contact Info) Description 08/02/2024 8:00 AM EST Telemedicine Psychiatry, [facility] [address] [place] [address] Pedro Luis Casas CRNP [address] [place] [address] 08/28/2024 9:45 AM EST Imaging Radiology [facility] [address] [facility] [place] [address] 08/28/2024 11:00 AM EST Office Visit Interventional Pain Center, [facility] 132 [facility] [place] [address] Zi Ramirez DO 132 [facility] [place] [phone] 08/30/2024 9:40 AM EST Office Visit Rheumatology [address] [place] [address] Matthew Mari MD [address] [place] [address] [place] [address] 09/17/2024 11:30 AM EST Office Visit Hematology/Oncology [facility] [address] [facility] [place], [place] [phone] Angela Renteria CRNP [address] [place] [address] [facility] [address] 09/25/2024 10:00 AM EST Office [address], [address] [place] [address] [facility] [address] [place] [address] 10/08/2024 9:00 AM EST Office Visit Dermatology [facility] [place] [address] [place] [address] Justyna Krishnamurthy PA-C [address] [facility] [place] [address] 11/19/2024 9:20 AM EDT Office Visit Hepatology, [facility] [address] [facility] [place] [address] Lali Chowdhury DO [address] [place] [address] 11/20/2024 7:00 AM EDT Office Visit Neurology [facility] [address] [facility] [address] [place] [address] Kendra Montano PA-C [address] [place] [address] 05/31/2025 9:20 AM EDT Office Visit Family Practice [facility] [address] [place] [address] Brent Smith MD [address] [place] [address] Scheduled Procedures Name Priority Associated Diagnoses Date/Ti [...] 08/05/2024 023, 05/06/2023, 07/10/2022, Additional history exists CKD PHOS USE SMARTSET 44143 08/05/202407/22, 08/09/2022, 08/06/2021, Additional history exists Diabetic Foot Exam 08/05/2024 08/05/2023, 1 09/18/2021, 09/04/2021, Additional history exists HbA1c 11/07/2024 05/10/2024, 060 02/2024, 10/25/2023, Additional history exists O2 ASSESSMENT COMPLETED IN PAST YEAR FOR COPD 11/30/2024 12/01/2023 GFR 01/30/2025 08/01/2024, 04/22, 01/27/2024, Additional history exists Adult Wellness Visit 03/27/2025 03/27/2024, 10/21/19 22 Depression Monitoring 05/10/2025 05/10/2024 B-12 06/28/2025 06/28/2024, 11/21, 05/31/2023, Additional history exists CKD HGB USE SMARTSET 10601 08/01/202508/01, 08/01/2024, 06/28/2024, Additional history exists Colonoscopy 11/30/2028 12/01/2023, 11/20, [...] Documents on File Type Date Recorded Patient Housing Inspector 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 Care Teams Slope Tender Relationship Specialty Start Date End Date Brent Smith MD [address] [place] [address] PCP - General Family Medicine 04/20/23 documented as of this encounter
--- OUTSIDE RECORDS SUMMARY | 2024-08-09 14:35 | External Medical Summary ---
Author Name Unknown Address Unknown Organization K0[facility] [address] [place] [address] Laboratory Report Ordering Provider Test Date Status CHARLI MARC 08/01/2024 08:30:26 Final Observation Date Value Abnormality Reference (Units ) Status WBC, Total 08/01/2024 08:30:26 6.83 4.00-10.8 0 (K/uL) Final RBC 08/01/2024 08:30:26 3.57 3.85-5.15 (M/uL) Final Hemoglobin 08/01/2024 08:30:26 11.9 Below low normal 12 .0-15.3 (g/dL) Final HCT 08/01/2024 08:30:26 36.5 36.0-45.2 (%) Final MCV 08/01/2024 08:30:26 102.2 81.5-97.5 (fL) Final MCH 08/01/2024 08:30:26 33.3 27.0-34.0 (pg) Final MCHC 08/01/2024 08:30:26 32.6 32.0-36.0 (g/dL) Final RDW 08/01/2024 08:30:26 13.4 11.5-15.5 (%) Final Platelets 08/01/2024 08:30:26 153 140-400 (K /uL) Final MPV 08/01/2024 08:30:26 10.7 6.6-11.1 ( fL) Final Performing Location [facility] [address] [place] [address]
--- OUTSIDE RECORDS SUMMARY | 2024-08-09 14:35 | External Medical Summary ---
Author Name Unknown Address Unknown [facility] [address] [place] [address] Laboratory Report Ordering Provider Test Date Status ARHEEL RENAE 08/01/2024 08:30:26 Final Observation Date Value Abnormality Reference (Units ) Status Bilirubin, Direct 08/01/2024 08:30:26 0.1 0. 0-0.3 (mg/dL) Final Performing [facility] - [address] [place] [address]
--- OUTSIDE RECORDS SUMMARY | 2024-08-09 14:35 | External Medical Summary | Summary of Care ---
Author Name Unknown Organization [facility] Address [address] [facility] [address] Phone [phone] Care Team Providers Care Gas Pumper Name Role Phone Brent Smith MD Primary Care Provider + Reason for Visit * Reason Comments Outpatient Testing Encounter Details Date Type Department Care Team (Late st Contact Info) Description 08/01/2024 8:50 AM EST Laboratory Laboratory, [facility] [place] [phone] [facility] 132 [place] [address] Arrived Allergies Active Allergy Reactions Criticality Noted Date [...] 90 Tablet 3 3 Active Nystatin-Triamcin olone 108942-9.1 UNIT/GM-% External Ointment (Mycolog)Indicati ons:Dermatitis Apply topically to affected area 3 times a day. Apply to affected area 15 g 1 3 Active Furosemide 20 MG Oral Tablet (Lasix)Indication s:HTN, goal below 140/90,Coronary artery disease involving [place] heart without angina pectoris, unspecified vessel or [...] MEALS 180 Tablet 3 4 Active Pen [place] 32G X 4 MMIndications:Typ e 2 diabetes [...] DINNER 90 Tablet 1 4 Active Tiotropium [place]-Olodatero l 2.5-2.5 MCG/ACT Inhalation Aerosol Solution (Stiolto [...] morning. 90 Tablet 3 4 Active Nystatin 627300 UNIT/GM External Cream Apply topically to affected [...] done. 11/11 Upper endoscopy ok. 12/10 in [place]--upper/lower scope WNL--angie [address] Kaushal Giang. 11/19/20 MRI C-Spine in [place]. DDD most C5-6. Mod central canal and mod left foraminal stenosis. Had C5-6 b/l NATAN 03/10 colon @[facility]--WNL angie 10y 03/07 MRI lumbar some arthritis 01/05 PFT WNL--no change from 2016. 2011 PFTs WNL. 05/03 colonoscopy-2mm hyperplastic polyp [...] artery disease) 07/07/2012 Overview (07/07/2015): STENT 2007 [facility], [place] 2004 HTN, goal below 140/90 04/10/2012 Overview: Per HTN Protocol #27. Type 2 diabetes mellitus wit h hemoglobin A1c goal of less than 8.0% 08/06/2009 Overview (12/18/2015): Per Lipid Taxonomy. 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 Saw pulm. FAMILY HX-GI MALIGNANCY 02/09/2005 documented as of this encounter (statuses as of 08/01/2024) Resolved Problems Problem Noted Date Diagnosed Date Resolved Date Coronary artery disease invo lving [place] coronary artery of [place] heart with unstable angina pectoris 09/05/2019 08/06/2021 [...] infarction 03/13/2009 Overview (03/13/2009): Modified by Acute [place] Protocol #5. Major depressive disorder, r ecurrent episode, moderate 06/13/2013 documented as of this encounter (statuses as of 08/01/2024) Immunizations Name Administration Dates Next Due COVID-19 mRNA, LNP-s, No Pre serve, 2-Dose Series (Moderna) 10/27/2020,09/29/2020 COVID-19, LNP-s, No Preserve , Klaus-sucrose, Ages 12+ (Pfizer) 03/17/2022 COVID-19, MRNA-LNP, 24-25, P R, 30MCG/0.3ML, IM, 12YRS AND ABOVE ([employer]-Com[employer] English) 05/29/2024 COVID-19, MRNA-LNP, PF, 30 M CG/0.3 mL, 12 YRS AND ABOVE, IM ([employer] English) 06/07/2023 COVID-19, mRNA, LNP-s, PF, B ooster, 100mcg/0.5mg (Moderna) 07/03/2021 Covid-19, Mrna, Lnp-s, Pf, B ivalent, 30 Mcg, IM, 12 yrs and above ([employer]lex[employer]) 08/18/2022 H1N1 2009 Influenza, IM 09/05/2009 Hepatitis [...] Assessment Author No 11/08/2014 12:00 PM EDT Dexter, Lali L, LUISA * Are you blind or do [...] Lali Renteria OSA documented in this encounter Plan of Treatment Upcoming Encounters Date Type Department Care Team (Late st Contact Info) Description 08/01/2024 9:30 AM EST Imaging Radiology [facility] 132 [facility] [place] [address] Vaginal bleeding 08/02/2024 8:00 AM EST Telemedicine Psychiatry, [facility] 132 [facility] [place] [address] Pedro Luis Casas CRNP 132 [facility] [place] [address] 08/06/2024 8:30 AM EST Laboratory Laboratory, [facility] [address] [facility] [place] [phone] [place] [facility] [address] [facility] [place] [address] 08/28/2024 9:45 AM EST Imaging Radiology [facility] [address] [facility] [place] [address] 08/28/2024 11:00 AM EST Office Visit Interventional Pain Center, [facility] [address] [facility] [place] [address] iZ Ramirez, DO [address] [place] [phone] 08/30/2024 9:40 AM EST Office Visit Rheumatology [facility] [address] [facility] [place] [address] Matthew Mari MD [address] [facility] [place] [address] 09/17/2024 11:30 AM EST Office Visit Hematology/Oncology [facility] [address] [place] [phone] Angela Renteria CRNP [address] [place] [address] [place] [address] 09/25/2024 10:00 AM EST Office Visit Pharmacy, [facility] 132 [facility] [place] [address] [facility] 132 [facility] [place] [address] 10/08/2024 9:00 AM EST Office Visit Dermatology [facility] [place] [address] [facility] [place] [address] Justyna Krishnamurthy PA-C [address] [facility] [place] [address] 11/19/2024 9:20 AM EDT Office Visit Hepatology, [facility] [place] [address] Lali Chowdhury, 132 [facility] [place] [address] 11/20/2024 7:00 AM EDT Office Visit Neurology [facility] [address] [place], [place] [address] Kendra Montano PA-C [address] [place] [address] 05/31/2025 9:20 AM EDT Office Visit Family Practice [facility] [address] [place] [address] Brent Smith MD [address] [place] [address] Scheduled Procedures Name Priority Associated Diagnoses Date/Ti [...] Additional history exists CKD PHOS USE SMARTSET 24079 08/05/202407/22, 08/09/2022, 08/06/2021, Additional history exists Diabetic Foot Exam 08/05/2024 08/05/2023, 1 09/18/2021, 09/04/2021, Additional history exists GFR 11/07/2024 05/10/2024, 06/0 02/2024, 10/25/2023, Additional history exists HbA1c 11/07/2024 05/10/2024, 06/0 02/2024, 10/25/2023, Additional history exists O2 ASSESSMENT COMPLETED IN PAST YEAR FOR COPD 11/30/2024 12/01/2023 Adult Wellness Visit 03/27/2025 03/27/2024, 10/21/19 22 Depression Monitoring 05/10/2025 05/10/2024 B-12 06/28/2025 06/28/2024, 11/21, 05/31/2023, Additional history exists CKD HGB USE SMARTSET 57362 08/01/202508/01, 08/01/2024, 06/28/2024, Additional history exists Colonoscopy [...] Documents on File Type Date Recorded Patient Communications Editor 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 Care Teams Gas Pumper Relationship Specialty Start Date End Date Brent Smith MD [address] [facility] [place] [address] PCP - General Family Medicine 04/20/23 documented as of this encounter
--- OUTSIDE RECORDS SUMMARY | 2024-08-09 14:35 | External Medical Summary ---
Author Name Unknown Address Unknown Organization K0[facility] [place] [address] [place] [address] Laboratory Report Ordering Provider Test Date Status CHARLI MARC 08/01/2024 08:30:26 Final Observation Date Value Abnormality Reference (Units ) Status BUN 08/01/2024 08:30:26 26 Above high normal 6-20 (mg/dL) Final Creatinine 08/01/2024 08:30:26 1.3 Above high normal 0.5-1.0 (mg/dL) Final Glomerular filtration rate/1.73 sq M.predicted [Volume Rate/Area] in Serum, Plasma or Blood by Creatinine-based formula (CKD-EPI) 08/01/2024 08:30:26 44 Below low normal >=60 (mL/min) Final eGFR is calculated based on the CKD-EPI 2020 equation. Sodium 08/01/2024 08:30:26 136 135-146 (m mol/L) Final Potassium 08/01/2024 08:30:26 4.8 3.5-5.1 (m mol/L) Final Cl 08/01/2024 08:30:26 101 98-107 (mm ol/L) Final CO2 08/01/2024 08:30:26 24 22-32 (mmo l/L) Final Anion gap 08/01/2024 08:30:26 11 7-15 (mmol /L) Final Glucose 08/01/2024 08:30:26 220 Above high normal 70 -120 (mg/dL) Final Albumin 08/01/2024 08:30:26 3.8 3.8-5.0 (g /dL) Final AST (Aspartate aminotransferase) 08/01/2024 08:30:26 30 10-35 (U/L) Fin al Alk Phos 08/01/2024 08:30:26 52 35-130 (U/ L) Final Bilirubin, Total 08/01/2024 08:30:26 <0.2 <=1 .2 (mg/dL) Final Calcium 08/01/2024 08:30:26 9.1 8.4-10.2 ( mg/dL) Final Protein 08/01/2024 08:30:26 6.2 6.0-8.3 (g /dL) Final ALT (Alanine aminotransferase) 08/01/2024 08:30:26 16 10-35 (U/L) Jerome ibarra Performing Location LABORATORY [place] [address] [facility] [address]
--- OUTSIDE RECORDS SUMMARY | 2024-08-09 14:35 | External Medical Summary ---
Author Name Unknown Address Unknown Organization K0G:LAB[facility]ORY [facility] [address] [place] [address] Laboratory Report Ordering Provider Test Date Status MILAGRO AVILEZ 08/01/2024 08:30:26 Final Warfarin Therapy
INR: 2 .0-3.0 conventional anticoagulation
INR: 2.5- 3.5 high intensity anticoagulation Observation Date Value Abnormality Reference (Units ) Status PT 08/01/2024 08:30:26 14.2 11.6-15.2 (seconds) Final INR 08/01/2024 08:30:26 1.1 0.8-1.2 Final Performing Location [facility]ORY [facility] [address] [place] [address]
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
--- OUTSIDE RECORDS SUMMARY | 2024-08-09 14:35 | External Medical Summary | Summary of Care ---
Author Name Unknown Organization [facility] Address [address] [facility] [place] [address] Phone [phone] Care Team Providers Care Beam Dyer Recessed Vat Name Role Phone Brent Smith MD Primary Care Provider + Reason for Visit * Reason Comments Depression Encounter Details Date Type Department Care Team (Late st Contact Info) Description 08/02/2024 8:00 AM [facility] [address] [place] [address] Pedro Luis Casas CRNP [address] [place] [address] Major depressive disorder, recurrent severe without psychotic [...] 90 Tablet 3 3 Active Nystatin-Triamcin olone 553134-5.1 UNIT/GM-% External Ointment (Mycolog)Indicati ons:Dermatitis Apply topically [...] MEALS 180 Tablet 3 4 Active Pen [place] 32G X 4 MMIndications:Typ e 2 diabetes [...] DINNER 90 Tablet 1 4 Active Tiotropium [place]-Olodatero l 2.5-2.5 MCG/ACT Inhalation Aerosol Solution (Stiolto [...] morning. 90 Tablet 3 4 Active Nystatin 104725 UNIT/GM External Cream Apply topically to affected [...] done. 11/11 Upper endoscopy ok. 12/10 in [place]--upper/lower scope WNL--angie [address] Kaushal Giang. 11/19/20 MRI C-Spine in [place]. DDD most C5-6. Mod central canal and mod left foraminal stenosis. Had C5-6 b/l NATAN 03/10 colon @[facility]--WNL angie 10y 03/07 MRI lumbar some [...] artery disease) 07/07/2012 Overview (07/07/2015): STENT 2007 [facility], [place] 2004 HTN, goal below 140/90 04/10/2012 Overview: Per HTN Protocol #27. Type 2 diabetes mellitus wit h hemoglobin A1c goal of less than 8.0% 08/06/2009 Overview (12/18/2015): Per Lipid Taxonomy. ICD-10 update of inactive term Old myocardial infarct 03/13/2009 Overview (06/13/2013): INFEROLATERAL [place] 2004 Chronic rhinitis 10/07/2008 Gastroparesis 04/27/2007 Sarcoidosis [...] infarction 03/13/2009 Overview (03/13/2009): Modified by Acute [place] Protocol #5. Major depressive disorder, r ecurrent episode, moderate 06/13/2013 documented as of this encounter (statuses as of 08/02/2024) Immunizations Name Administration Dates Next Due COVID-19 mRNA, LNP-s, No Pre serve, 2-Dose Series (Moderna) 10/27/2020,09/29/2020 COVID-19, LNP-s, No Preserve , Klaus-sucrose, Ages 12+ (Pfizer) 03/17/2022 COVID-19, MRNA-LNP, 24-25, P R, 30MCG/0.3ML, IM, 12YRS AND ABOVE ([employer]-Comirnaty) 05/29/2024 COVID-19, MRNA-LNP, PF, 30 M CG/0.3 mL, 12 YRS AND ABOVE, IM ([employer]-Comirnaty) 06/07/2023 COVID-19, mRNA, LNP-s, PF, B ooster, 100mcg/0.5mg (Moderna) 07/03/2021 Covid-19, Mrna, Lnp-s, Pf, B ivalent, 30 Mcg, IM, 12 yrs and above ([employer]) 08/18/2022 H1N1 2009 Influenza, IM 09/05/2009 Hepatitis [...] Lali Renteria LUISA documented in this encounter Progress Notes * Pedro Luis Casas CRNP - 08/02/2024 8:05 AM EST OUTPATIENT BEHAVIORAL HEALTH RETURN VISIT NOTE Psychiatry, [address] [address] 06/06/2024 Shelly Macdonald Patient location: HOME. I was not in a hospital or clinic location. After connecting through telephone, patient was verified with two unique identifiers. Patient (or authorized legal off premise service representative) was then informed that this was a Telemedicine visit and being conducted confidentially over secure lines. Methods to assure confidentiality were taken. Patient acknowledged consent and understanding of privacy and security of the Telemedicine visit. The patient agreed to participate. Clinical Tools - HILLARY-7 | PHQ-9 | AIMS | Carlos Vu Safety Plan :[id number]} Risk Assessment: Completed and No acute safety [...] anxious regarding this. "It's overwhelming, and it's [place]." Daughter is moving to [place], "they were supposed to come here for [place].. and it is just a mess." She [...] gain). Denies history of inpatient treatment or suicide attempts. Smokes 1/2ppd. Has been unable to establish with psychiatry or therapy since moving to [place] in 2020. Lives in home with . Retired [...] ordering medications/tests, documenting clinical information. Pedro Luis Casas, MSN, PRESCHOOL ASSISTANT PRINCIPAL, PMHNP- Nurse Practitioner - Outpatient Psychiatry [facility] [place] 06/06/2024 Crisis Planning: Shelly Macdonald has been [...] Description 08/28/2024 9:45 AM EST Imaging Radiology [facility] [address] [place] [address] 08/28/2024 11:00 AM EST Office Visit Interventional Pain Center, [address] [place] [address] Zi Ramirez DO [address] [place] [phone] 08/30/2024 9:40 AM EST Office Visit Rheumatology [address] [place], [place] [address] Matthew Mari MD [address] [place] [address] [place] [address] 09/10/2024 8:00 AM EST Telemedicine Psychiatry, [facility] [address] [facility] [place] [address] Pedro Luis Casas CRNP [facility] [place] [address] 09/17/2024 11:30 AM EST Office Visit Hematology/Oncology [facility] [address] [place] [phone] Angela Renteria CRNP [address] [facility] [phone] 09/25/2024 10:00 AM EST Office Visit Pharmacy, [facility] 132 [facility] [place] [address] [facility] [place] [address] 10/08/2024 9:00 AM EST Office Visit Dermatology [facility] [place] [address] [place] [address] Justyna Krishnamurthy PA-C [address] [facility] [place] [address] 11/19/2024 9:20 AM EDT Office Visit Hepatology, [facility] [address] [facility] [place] [address] Lali Chowdhury DO [address] [place] [address] 11/20/2024 7:00 AM EDT Office Visit Neurology [facility] [address] [place] [address] Kendra Montano PA-C [address] [place] [address] 05/31/2025 9:20 AM EDT Office Visit Family Practice [facility] [address] [place] [address] Brent Smith MD [address] [place] [address] Scheduled Procedures Name Priority Associated Diagnoses Date/Ti [...] Additional history exists CKD HGB USE SMARTSET 82487 08/01/202508/01, 08/01/2024, 06/28/2024, Additional history exists CKD PHOS USE SMARTSET 72911 08/01/202507/22, 08/05/2023, 08/09/2022, Additional history exists Colonoscopy [...] Documents on File Type Date Recorded Patient [employer] 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 Care Teams Beam Dyer Recessed Vat Relationship Specialty Start Date End Date Brent Smith MD [address] [place] [address] PCP - General Family Medicine 04/20/23 documented as of this encounter
--- OUTSIDE RECORDS SUMMARY | 2024-08-09 14:35 | External Medical Summary ---
Author Name Unknown Address Unknown Organization K01:[facility] [place] [address] [place] [address] Laboratory Report Ordering Provider Test Date Status ZIGGY GONZALEZ 08/01/2024 08:30:26 Final Observation Date Value Abnormality Reference (Units ) Status HbA1C 08/01/2024 08:30:26 7.5 Above high normal 4. 0-5.6 (%) Final The use of HbA1c to monitor glycemic status is based on normal hemoglobin and HbA composition. This test should not be used in patients with abnormal hemoglobin that affects the half life of the red blood cell or the in vivo glycation rates. Glucose, estimated average 08/01/2024 08:30:26 169 Above high normal <126 (mg/dL) Jerome ibarra Performing Location [facility] [place] [address] [place] [address]
--- OUTSIDE RECORDS SUMMARY | 2024-08-09 14:35 | External Medical Summary ---
Author Name Unknown Address Unknown Organization K01:[facility] - [address] [place] [address] Laboratory Report Ordering Provider Test Date Status ZIGGY GONZALEZ 08/01/2024 08:30:26 Final Observation Date Value Abnormality Reference (Units ) Status Phosphate 08/01/2024 08:30:26 3.5 2.5-4.8 (m g/dL) Final Performing Location [facility] - [address] [place] [address]
--- OUTSIDE RECORDS SUMMARY | 2024-08-09 14:35 | External Medical Summary ---
Author Name Unknown Address Unknown Organization K0G:[facility] - [address] [place] [address] Laboratory Report Ordering Provider Test Date Status MILAGRO AVILEZ 08/01/2024 08:30:26 Final Anticoagulation may affect t esting. Refer to [employer] Test Catalog for a list of effects. Observation Date Value Abnormality Reference (Units ) Status aPTT panel - Platelet poor plasma 08/01/2024 08:30:26 29 21-38 (seconds) Final Performing Location [facility] [address] - [address] [place] [address]
--- OUTSIDE RECORDS SUMMARY | 2024-08-09 14:35 | External Medical Summary ---
Author Name Unknown Address Unknown Organization K0G:[facility] [address] [place] [address] Laboratory Report Ordering Provider Test Date Status CHARLI MARC 08/01/2024 08:30:26 Final Observation Date Value Abnormality Reference (Units ) Status SYNC LEUKOCYTES IN BLOOD BY AUTOMATED COUNT 08/01/2024 08:30:26 6.83 4.00-10.80 (K/uL) Final Segs 08/01/2024 08:30:26 65.7 40.0-75.0 (%) Final Lymphs % 08/01/2024 08:30:26 22.0 18.0-42.0 (%) Final Monos 08/01/2024 08:30:26 10.7 1.0-11.0 (%) Final Eosinophils 08/01/2024 08:30:26 0.7 0.0-6.0 (%) Final Basos 08/01/2024 08:30:26 0.9 0.0-2.0 (%) Final Absolute Segs 08/01/2024 08:30:26 4.49 1.80-7.70 (K/uL) Final Lymphs, absolute 08/01/2024 08:30:26 1.50 1.00-4.80 (K/ul) Final Monos, Abs 08/01/2024 08:30:26 0.73 0.00-1.10 (K/uL) Final Eos, Abs 08/01/2024 08:30:26 0.05 0.00-0.70 (K/uL) Final Basos, Abs 08/01/2024 08:30:26 0.06 0.00-0.20 (K/uL) Final Performing Location [facility] [place] [address]
--- OUTSIDE RECORDS SUMMARY | 2024-08-09 14:36 | External Medical Summary | Summary of Care ---
Author Name Unknown Organization [facility] Address [address] [facility] [place] [address] Phone [phone] Care Team Providers Care Insurance Application Investigator Name Role Phone Brent Smith MD Primary Care Provider + Reason for Visit * Reason Onset Date Comments Appointment 06/28/2024 Encounter Details Date Type Department Care Team (Late st Contact Info) Description 06/28/2024 Telephone Cardiology, [facility] [address] [place] [address] Markell Brooks, PAEddyC [address] [place] [phone] Appointment Allergies Active Allergy Reactions Criticality Noted Date [...] as of this encounter (statuses as of 07/04/2024) Medications ASPIRIN 81 MG PO TABS Take [...] 90 Tablet 3 3 Active Nystatin-Triamcin olone 873489-2.1 UNIT/GM-% External Ointment (Mycolog)Indicati ons:Dermatitis Apply topically to affected area 3 times a day. Apply to affected area 15 g 1 3 Active Furosemide 20 MG Oral Tablet (Lasix)Indication s:HTN, goal below 140/90,Coronary artery disease involving [place] heart without angina pectoris, unspecified vessel or lesion type,Encounter for monitoring diuretic therapy,Old myocardial infarct Take 1 Tablet by mouth in the morning. 90 Tablet 3 3 Active metFORMIN HCl 1000 MG Oral Tablet (Glucophage)Indic ations:Type 2 diabetes mellitus with hemoglobin A1c goal of less than 8.0% ([facility]) TAKE 1 TABLET TWICE A DAY WITH MORNING AND EVENING MEALS 180 Tablet 3 4 Active Pen [place] 32G X 4 MMIndications:Typ e 2 diabetes mellitus with hemoglobin A1c goal of less than 8.0% (HCC) Use as directed. To administer insulin. 100 Each 3 4 Active Pioglitazone HCl 30 MG Oral Tablet (Actos) Take 1 Tablet by mouth in the morning. 90 Tablet 3 4 Active FreeStyle LancetsIndication s:Type 2 [...] Active Additional Information Patient not taking.Reported on 06/28/2024 Albuterol Sulfate HFA 108 (90 Base) MCG/ACT [...] DINNER 90 Tablet 1 4 Active Tiotropium [place]-Olodatero l 2.5-2.5 MCG/ACT Inhalation Aerosol Solution (Stiolto [...] FOR ANXIETY 90 Tablet 1 4 Active Empagliflozin 10 MG Oral Tablet (Jardiance)Indica tions:Type 2 diabetes mellitus with hemoglobin A1c goal of less than 8.0% ([facility]) Take 1 Tablet by mouth in the morning. 90 Tablet 3 4 Active documented as of this encounter (statuses as of 07/04/2024) Active Problems Problem Noted Date Diagnosed Date [...] Dr Kaushal Giang. 11/19/20 MRI C-Spine in [place]. DDD most C5-6. Mod central canal and mod left foraminal stenosis. Had C5-6 b/l NATAN 03/10 colon [facility]--WNL angie 10y 03/07 MRI lumbar [...] artery disease) 07/07/2012 Overview (07/07/2015): STENT 2007 [facility], [place] 2004 HTN, goal below 140/90 04/10/2012 Overview: Per HTN Protocol #27. Type 2 diabetes mellitus wit h hemoglobin A1c goal of less than 8.0% 08/06/2009 Overview (12/18/2015): Per Lipid Taxonomy. 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 Saw pulm. FAMILY HX-GI MALIGNANCY 02/09/2005 documented as of this encounter (statuses as of 07/04/2024) Resolved Problems Problem Noted Date Diagnosed Date Resolved Date Coronary artery disease invo lving [place] coronary artery of [place] heart with unstable angina pectoris 09/05/2019 [...] infarction 03/13/2009 Overview (03/13/2009): Modified by Acute [place] Protocol #5. Major depressive disorder, r ecurrent episode, moderate 06/13/2013 documented as of this encounter (statuses as of 07/04/2024) Immunizations Name Administration Dates Next Due COVID-19 mRNA, LNP-s, No Pre serve, 2-Dose Series (Moderna) 10/27/2020,09/29/2020 COVID-19, LNP-s, No Preserve , Klaus-sucrose, Ages 12+ (Pfizer) 03/17/2022 COVID-19, MRNA-LNP, 24-25, P R, 30MCG/0.3ML, IM, 12YRS AND ABOVE ([employer]-Comirnaty) 05/29/2024 COVID-19, MRNA-LNP, PF, 30 M CG/0.3 mL, 12 YRS AND ABOVE, IM ([employer]-Comirnaty) 06/07/2023 COVID-19, mRNA, LNP-s, PF, B ooster, 100mcg/0.5mg (Moderna) 07/03/2021 Covid-19, Mrna, Lnp-s, Pf, B ivalent, 30 Mcg, IM, 12 yrs and above ([employer]) 08/18/2022 H1N1 2009 Influenza, IM 09/05/2009 [...] No 05/18/2023 Does the household have a [facility] source of income? (Household - for ages [...] 11/08/2014 12:00 PM EDLali Hooper LUISA * Are you blind or do you have serious difficulty seeing, even when wearing glasses? Answer Date of Assessment Author No 11/08/2014 12:00 PM EDT Lali Renteria LUISA * Do you have serious difficulty walking or climbing stairs? (5 years old or older) Answer Date of Assessment Author Yes 11/08/2014 12:00 PM EDLali Hooper LUISA * Do you have difficulty dressing or bathing? (5 years old or older) Answer Date of Assessment Author No 11/08/2014 12:00 PM Lali Graf LUISA * Because of a physical, mental, or emotional condition, do you have difficulty doing errands alone such as visiting a doctors office or shopping? (15 years old or older) Answer Date of Assessment Author No 11/08/2014 12:00 PM Lali Garf OSA documented as of this encounter Mental Status * Because of a physical, mental, or emotional condition, do you have serious difficulty concentrating, remembering, or making decisions? (5 years old or older) Answer Entry Date Author Yes 11/08/2014 12:00 PM Lali Graf OSA documented in this encounter Miscellaneous Notes * Telephone Encounter - Rivera Peterson RN - 07/04/2024 11:33 AM EST Just spoke with patient. She agrees to move her nuclear stress test to this Friday 07/06 at 12 pm. Marbin, would you please change her appt time? Thanks! Instructions sent via [employer] Rivera Peterson RN * Telephone Encounter - Marbin Kellogg OSA - 07/04/2024 10:08 AM EST Patient is having surgery on 07/09/24. Is there anyway that this patient could have the ECHO and the NM testing done before the surgery? This is the patients [employer] Portal Message, thank you. I know you said there was no hurry to get the Cardiology studies done, but I've requested being on the call list for an earlier than 08/20 appointment for the stress test. I was to have Dupuytren's hand surgery on . That's been cancelled because of the pending cardiology studies, and won't be rescheduled until they are completed. I can barely use my left hand now because of the lack of coordination and pain. I hate to have to wait another 2 months (although it's in my best interest). Lor Macdonald * Telephone Encounter - Letty Higginbotham OSA - 07/02/2024 8:54 AM EST PT IS SCHEDULED FOR 08/20/24 * Telephone Encounter - Letty Higginbotham OSA - 06/28/2024 10:57 AM EST 06/28/24 LMOM FOR PT TO CALL BACK TO SCHEDULE KF * Telephone Encounter - Marbin Kellogg OSA - 06/28/2024 10:21 AM EST Patient is ordered a cardiac study, please assist patient to schedule, thank you. NM MYOCARD PERF IMG SPECT MULT STUDIES WITH PHARM INTERV [75636.02] (Order [id number] documented in this encounter Plan of Treatment Upcoming Encounters Date Type Department Care Team (Late st Contact Info) Description 07/06/2024 12:00 PM EST Imaging [facility] 2nd Floor Cardiology, [place] [address] [place] [phone] Gw, Excess Time Radiology [address] [place] [address] 07/18/2024 10:00 AM EST Cardiac Studies Cardiac Studies, [facility] [address] [place] [address] 07/24/2024 10:00 AM EST Office Visit Pharmacy, [facility] [address] [place] [address] [facility] [address] [place], [place] [address] 08/02/2024 8:00 AM EST Telemedicine Psychiatry, [facility] [address] [place] [address] Pedro Luis Casas CRNP [address] [place] [address] 08/10/2024 8:00 AM EST Laboratory Laboratory, [facility] [address] [facility] [address] [place] [phone] [facility] [address] [facility] [place] [address] 08/20/2024 9:00 AM EST Imaging [facility] II 2nd Floor Cardiology, [place] [address] [facility] [address] [place] [phone] Gw, Excess Time Radiology [address] [place] [address] [place] [address] 08/28/2024 9:45 AM EST Imaging Radiology [facility] 1st Floor, [place] [address] [facility] [place] [address] 08/28/2024 11:00 AM EST Office Visit Interventional Pain Center, [facility] [address] [facility] [place] [address] Zi Ramirez DO [address] [place] [phone] 08/30/2024 9:40 AM EST Office Visit Rheumatology [facility] [address] [facility] [place], [place] [address] Matthew Mari MD [address] [facility] [place], [place] [address] 09/17/2024 11:30 AM EST Office Visit Hematology/Oncology [facility] [address] [facility] [place], [place] [phone] Angela Renteria CRNP [address] [facility] [place] [address] 10/08/2024 9:00 AM EST Office Visit Dermatology [facility] [address] [place] [address] Justyna Krishnamurthy PA-C [address] [place] [address] 11/19/2024 9:20 AM EDT Office Visit Hepatology, [facility] [address] [facility] [place] [address] Lali Chowdhury DO [facility] [place] [address] 11/20/2024 7:00 AM EDT Office Visit Neurology [facility] [address] [facility] [place], [place] [address] Kendra Montano PAPe[address] [place] [address] 05/31/2025 9:20 AM EDT Office Visit Family Practice [facility] [address] [place] [address] Brent Smith MD [address] [place] [address] Scheduled Procedures Name Priority Associated Diagnoses Date/Ti [...] Additional history exists CKD PHOS USE SMARTSET 22279 08/05/202407/22, 08/09/2022, 08/06/2021, Additional history exists Diabetic [...] Additional history exists CKD HGB USE SMARTSET 14341 06/28/202506/28, 05/10/2024, 05/10/2024, Additional history exists Colonoscopy 11/30/2028 12/01/2023, 11/20, [...] Documents on File Type Date Recorded 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 Care Teams Insurance Application Investigator Relationship Specialty Start Date End Date Brent Smith MD [address] [place] [address] PCP - General Family Medicine 04/20/23 documented as of this encounter
--- OUTSIDE RECORDS SUMMARY | 2024-08-09 14:36 | External Medical Summary | Summary of Care ---
Author Name Unknown Organization [facility] Address [address] [place] [address] Phone [phone] Care Team Providers Care Teacher Private Name Role Phone Brent Smith MD Primary Care Provider + Reason for Visit * Reason Onset Date Comments Test Results 07/20/2024 Encounter Details Date Type Department Care Team (Late st Contact Info) Description 07/20/2024 Telephone Cardiology, [place] [address] [facility] [place] [phone] Markell Brooks, PAEddyC [address] [place] [address] Test Results Allergies Active Allergy Reactions [...] as of this encounter (statuses as of 07/20/2024) Medications ASPIRIN 81 MG PO TABS Take [...] 90 Tablet 3 3 Active Nystatin-Triamcin olone 379291-2.1 UNIT/GM-% External Ointment (Mycolog)Indicati ons:Dermatitis Apply topically to affected area 3 times a day. Apply to affected area 15 g 1 3 Active Furosemide 20 MG Oral Tablet (Lasix)Indication s:HTN, goal below 140/90,Coronary artery disease involving [place] heart without angina pectoris, unspecified vessel or [...] MEALS 180 Tablet 3 4 Active Pen [place] 32G X 4 MMIndications:Typ e 2 diabetes [...] DINNER 90 Tablet 1 4 Active Tiotropium [place]-Olodatero l 2.5-2.5 MCG/ACT Inhalation Aerosol Solution (Stiolto [...] hemoglobin A1c goal of less than 8.0% ([facility]) Take 1 Tablet by mouth in the morning. 90 Tablet 3 4 Active documented as of this encounter (statuses as of 07/20/2024) Active Problems Problem Noted Date Diagnosed Date [...] done. 11/11 Upper endoscopy ok. 12/10 in [place]--upper/lower scope WNL--angie [address] Kaushal Giang. 11/19/20 MRI C-Spine in [place]. DDD most C5-6. Mod central canal and mod left foraminal stenosis. Had C5-6 b/l NATAN 03/10 colon @[facility]--WNL angie 10y 03/07 MRI lumbar some [...] artery disease) 07/07/2012 Overview (07/07/2015): STENT 2007 [facility], [place] 2004 HTN, goal below 140/90 04/10/2012 Overview: Per HTN Protocol #27. Type 2 diabetes mellitus wit h hemoglobin A1c goal of less than 8.0% 08/06/2009 Overview (12/18/2015): Per Lipid Taxonomy. 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 Saw pulm. FAMILY HX-GI MALIGNANCY 02/09/2005 documented as of this encounter (statuses as of 07/20/2024) Resolved Problems Problem Noted Date Diagnosed Date Resolved Date Coronary artery disease invo lving [place] coronary artery of [place] heart with unstable angina pectoris 09/05/2019 08/06/2021 [...] infarction 03/13/2009 Overview (03/13/2009): Modified by Acute [place] Protocol #5. Major depressive disorder, r ecurrent episode, moderate 06/13/2013 documented as of this encounter (statuses as of 07/20/2024) Immunizations Name Administration Dates Next Due COVID-19 mRNA, LNP-s, No Pre serve, 2-Dose Series (Moderna) 10/27/2020,09/29/2020 COVID-19, LNP-s, No Preserve , Klaus-sucrose, Ages 12+ (Pfizer) 03/17/2022 COVID-19, MRNA-LNP, 24-25, P R, 30MCG/0.3ML, IM, 12YRS AND ABOVE ([employer]-Comirnaty) 05/29/2024 COVID-19, MRNA-LNP, PF, 30 M CG/0.3 mL, 12 YRS AND ABOVE, IM ([employer]-Comirnaty) 06/07/2023 COVID-19, mRNA, LNP-s, PF, B ooster, 100mcg/0.5mg (Moderna) 07/03/2021 Covid-19, Mrna, Lnp-s, Pf, B ivalent, 30 Mcg, IM, 12 yrs and above ([employer]) 08/18/2022 H1N1 2009 Influenza, IM 09/05/2009 Hepatitis [...] Author No 11/08/2014 12:00 PM Lali Graf L, LUISA * Are you blind or [...] encounter Miscellaneous Notes * Telephone Encounter - Juana Starr LPN - 07/20/2024 8:36 AM EST ----- Message from Markell Brooks sent at 07/18/2024 1:23 PM EST ----- July 18, 2024 TTE Interpretation Summary (as per Dr. Hernandez): The left ventricular cavity size is normal. The LV wall thickness is mildly increased (concentric). Mild hypokinesis of the apical septum, otherwise normal wall motion. The qualitative LV ejection fraction is 60-64% (normal). The left ventricular diastolic function is mildly abnormal (grade I). Moderate aortic valve sclerosis is present. The tricuspid valve anatomy is normal. Mild tricuspid regurgitation is present. Compared to prior study of June 28, 2022, there is no significant change Echo with stable findings. Results not significantly changed when compared to the prior study from June 2022, great. documented in this encounter Plan of Treatment Upcoming Encounters Date Type Department Care Team (Late st Contact Info) Description 07/24/2024 10:00 AM EST Office Visit Pharmacy, [facility] [address] [place] [address] [facility] [place] [address] 08/02/2024 8:00 AM EST Telemedicine Psychiatry, [facility] [address] [place] [address] Pedro Luis Casas CRNP [address] [place] [address] 08/06/2024 8:30 AM EST Laboratory Laboratory, [facility] [address] [facility] [place] [phone] [facility] [address] [facility] [place] [address] 08/28/2024 9:45 AM EST Imaging Radiology [facility] 1st Floor, [place] [address] [facility] [place] [address] 08/28/2024 11:00 AM EST Office Visit Interventional Pain Center, [facility] [address] [place] [address] Zi Ramirez DO [address] [place] [phone] 08/30/2024 9:40 AM EST Office Visit Rheumatology [place] [phone] [address] [place], [place] [address] Matthew Mari MD [address] [place] [address] 09/17/2024 11:30 AM EST Office Visit Hematology/Oncology [facility] [place] [address] [facility] [place] [phone] Angela Renteria, JUAN MANUEL [address] [facility] [place] [address] 10/08/2024 9:00 AM EST Office Visit Dermatology [facility] [place] [address] [place] [address] Justyna Krishnamurthy PA-C [address] [place] [address] 11/19/2024 9:20 AM EDT Office Visit Hepatology, [facility] [address] [facility] [place] [address] Lali Chowdhury DO [address] [place] [address] 11/20/2024 7:00 AM EDT Office Visit Neurology [facility] [address] [facility] [address] Kendra Montano PA-C [address] [facility] [place] [address] 05/31/2025 9:20 AM EDT Office Visit Family Practice [facility] [address] 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 Care Teams Teacher Private Relationship Specialty Start Date End Date Brent Smith MD [address] [place] [address] PCP - General Family Medicine 04/20/23 documented as of this encounter
--- OUTSIDE RECORDS SUMMARY | 2024-08-09 14:36 | External Medical Summary | Summary of Care ---
Author Name Unknown Organization [facility] Address [address] [facility] [place] [address] Phone [phone] Care Team Providers Care Corporate Event Planner Name Role Phone Brent Smith MD Primary Care Provider + Reason for Visit * Reason Onset Date Comments Appointment 06/28/2024 Encounter Details Date Type Department Care Team (Late st Contact Info) Description 06/28/2024 Telephone Cardiology, [facility] [address] [place] [address] Markell Brooks, PAEddyC [address] [place] [phone] Appointment Allergies Active Allergy Reactions Criticality Noted [...] 90 Tablet 3 3 Active Nystatin-Triamcin olone 201662-1.1 UNIT/GM-% External Ointment (Mycolog)Indicati ons:Dermatitis Apply topically to affected area 3 times a day. Apply to affected area 15 g 1 3 Active Furosemide 20 MG Oral Tablet (Lasix)Indication s:HTN, goal below 140/90,Coronary artery disease involving viejas heart without angina pectoris, unspecified vessel or lesion type,Encounter for monitoring diuretic therapy,Old myocardial infarct Take 1 Tablet by mouth in the morning. 90 Tablet 3 3 Active metFORMIN HCl 1000 MG Oral Tablet (Glucophage)Indic ations:Type 2 diabetes mellitus with hemoglobin A1c goal of less than 8.0% ([facility]) TAKE 1 TABLET TWICE A DAY WITH MORNING AND EVENING MEALS 180 Tablet 3 4 Active Pen [place] 32G X 4 MMIndications:Typ e 2 diabetes [...] DINNER 90 Tablet 1 4 Active Tiotropium Austin-Olodatero l 2.5-2.5 MCG/ACT Inhalation Aerosol Solution (Stiolto [...] hemoglobin A1c goal of less than 8.0% ([facility]) Take 1 Tablet by mouth [...] done. 11/11 Upper endoscopy ok. 12/10 in [place]--upper/lower scope WNL--angie [address] Kaushal Giang. 11/19/20 MRI C-Spine in [place]. DDD most C5-6. Mod central canal and mod left foraminal stenosis. Had C5-6 b/l NATAN 03/10 colon [facility]--WNL angie 10y 03/07 MRI lumbar some [...] 07/07/2012 Overview (07/07/2015): STENT 2007 [facility] [place] 2004 HTN, goal below 140/90 04/10/2012 Overview: Per HTN Protocol #27. Type 2 diabetes mellitus wit h hemoglobin A1c goal of less than 8.0% 08/06/2009 Overview (12/18/2015): Per Lipid Taxonomy. ICD-10 update of inactive term Old myocardial infarct 03/13/2009 Overview (06/13/2013): INFEROLATERAL [place] 2003 Chronic rhinitis 10/07/2008 Gastroparesis 04/27/2007 Sarcoidosis 05/12/2005 Overview (05/05/2016): DX 2004 EGD showing nonnecrotizing granuloma stomach + wt loss. Saw pulm. FAMILY HX-GI MALIGNANCY 02/09/2005 documented as of this encounter (statuses as of 07/04/2024) Resolved Problems Problem Noted Date Diagnosed Date Resolved Date Coronary artery disease invo lving viejas coronary artery of viejas heart with unstable angina pectoris 09/05/2019 08/06/2021 [...] infarction 03/13/2009 Overview (03/13/2009): Modified by Acute [place] Protocol #5. Major depressive disorder, r ecurrent episode, moderate 06/13/2013 documented as of this encounter (statuses as of 07/04/2024) Immunizations Name Administration Dates Next Due COVID-19 mRNA, LNP-s, No Pre serve, 2-Dose Series (Moderna) 10/27/2020,09/29/2020 COVID-19, LNP-s, No Preserve , Klaus-sucrose, Ages 12+ (Pfizer) 03/17/2022 COVID-19, MRNA-LNP, 24-25, P R, 30MCG/0.3ML, IM, 12YRS AND ABOVE ([employer]-Comirnaty) 05/29/2024 COVID-19, MRNA-LNP, PF, 30 M CG/0.3 mL, 12 YRS AND ABOVE, IM ([employer]-Comirnaty) 06/07/2023 COVID-19, mRNA, LNP-s, PF, B ooster, 100mcg/0.5mg (Moderna) 07/03/2021 Covid-19, Mrna, Lnp-s, Pf, B ivalent, 30 Mcg, IM, 12 yrs and above ([employer]) 08/18/2022 H1N1 2009 Influenza, IM 09/05/2009 Hepatitis [...] No 05/18/2023 Does the household have a [facility] psychiatric center[facility] source of income? (Household - for [...] Author No 11/08/2014 12:00 PM EDLali Hooper OSA * Because of a physical, mental, or [...] encounter Miscellaneous Notes * Telephone Encounter - Marbin Kellogg OSA - 07/04/2024 11:48 AM EST Patients NM testing has been rescheduled to: 07/06/2024 Status: Melvin Time: 12:00 PM 12:15 PM 12:45 PM 1:30 PM 2:30 PM Length: 15 30 45 60 30 Visit Type: GWNMMYPHARM [[id number]] Reg Status: Verified Copay: $0.00 Provider: NMLewis Xavier, Excess Time Radiology NMLewis Xavier, Excess Time Radiology NMLewis [facility] * Telephone Encounter - Rivera Peterson RN - 07/04/2024 11:33 AM EST Just spoke with patient. She agrees to move her nuclear stress test to this Friday 07/06 at 12 pm. Marbin, would you please change her appt time? Thanks! Instructions sent via YES.TAPt Rivera Peterson, RN * Telephone Encounter - Marbin Kellogg OSA - 07/04/2024 10:08 AM EST Patient is having surgery on 07/09/24. Is there anyway that this patient could have the ECHO and the NM testing done before the surgery? This is the patients [employer] Portal Message, thank you. I know you [...] IMG SPECT MULT STUDIES WITH PHARM INTERV [74116.02] (Order [id number] documented in this encounter Plan of Treatment Upcoming Encounters Date Type Department Care Team (Late st Contact Info) Description 07/06/2024 12:00 PM EST Imaging [facility] 2nd Floor Cardiology, [address] [place] [phone] Gw, Excess Time Radiology [address] [place], [place] [address] [phone] 07/18/2024 10:00 AM EST Cardiac Studies Cardiac Studies, [address] [place] [address] 07/24/2024 10:00 AM EST Office Visit Pharmacy, [address] [place] [address] [facility] [address] [place] [address] 08/02/2024 8:00 AM EST Telemedicine Psychiatry, [address] [place] [address] Pedro Luis Casas CRNP [address] [facility] [place] [address] 08/10/2024 8:00 AM EST Laboratory Laboratory, [address] [place] [phone] [facility] [address] [place] [address] 08/28/2024 9:45 AM EST Imaging Radiology [facility] 1st [facility], [address] [place] [address] 08/28/2024 11:00 AM EST Office Visit Interventional Pain Center, [address] [place] [address] Zi Ramirez, DO [address] [place] [phone] 08/30/2024 9:40 AM EST Office Visit Rheumatology [place] [phone] [facility] [place] [address] Matthew Mari MD [address] [facility] [place] [address] 09/17/2024 11:30 AM EST Office Visit Hematology/Oncology [facility] [place] [address] [facility] [place] [phone] Angela Renteria CRNP [address] [facility] [place] [address] 10/08/2024 9:00 AM EST Office Visit Dermatology [facility] [address] [place] [address] Justyna Krishnamurthy PA-C [address] [place] [address] 11/19/2024 9:20 AM EDT Office Visit Hepatology, [facility] [place] [address] Lali Chowdhury, DO [address] [place] [address] 11/20/2024 7:00 AM EDT Office [facility] [place] [address] [place] [address] Kendra Montano PAPeña [address] [place] [address] 05/31/2025 9:20 AM EDT Office Visit Family Practice [facility] [address] [place] [address] Brent Smith MD [address] [place] [address] Scheduled Procedures Name Priority Associated Diagnoses Date/Ti [...] Additional history exists CKD PHOS USE SMARTSET 62226 08/05/202407/22, 08/09/2022, 08/06/2021, Additional history exists Diabetic Foot Exam 08/05/2024 08/05/2023, 1 09/18/2021, 09/04/2021, Additional history exists GFR 11/07/2024 05/10/2024, 06/0 02/2024, 10/25/2023, Additional history exists HbA1c 11/07/2024 05/10/2024, 06/0 02/2024, 10/25/2023, Additional history exists O2 ASSESSMENT COMPLETED IN PAST YEAR FOR COPD 11/30/2024 12/01/2023 Adult Wellness Visit 03/27/2025 03/27/2024, 10/21/19 Depression Monitoring 05/10/2025 05/10/2024 B-12 06/28/2025 06/28/2024, 11/21, 05/31/2023, Additional history exists CKD HGB USE SMARTSET 17243 06/28/202506/28, 05/10/2024, 05/10/2024, Additional history exists Colonoscopy [...] Documents on File Type Date Recorded Patient Reel Tender 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 Care Teams Corporate Event Planner Relationship Specialty Start Date End Date Brent Smith MD [address] [place] [id number] PCP - General Family Medicine 04/20/23 documented as of this encounter
--- OUTSIDE RECORDS SUMMARY | 2024-08-09 14:36 | External Medical Summary | Summary of Care ---
Author Name Unknown Organization [facility] Address [address] [facility] [place] [address] Phone [phone] Care Team Providers Care Household Appliance Installer Name Role Phone Brent Smith MD Primary Care Provider + Reason for Visit * Reason Comments Dosage Adjustment In Person (Anticoag Cl inic) Diabetes Follow-Up Encounter Details Date Type Department Care Team (Late st Contact Info) Description 07/24/2024 10:00 AM EST Office Visit Pharmacy, [facility] [address] [facility] [place] [address] [facility] [address] [facility] [place] [address] Type 2 diabetes mellitus with hemoglobin A1c goal of less than 8.0% ([facility])*; Coronary artery disease involving ugashik heart without angina pectoris, unspecified vessel or lesion type; HTN, goal below 140/90; Dyslipidemia, goal LDL below 70 Allergies Active Allergy Reactions Criticality Noted Date [...] as of this encounter (statuses as of 07/24/2024) Medications ASPIRIN 81 MG PO TABS Take by mouth every evening. 014 Active Blood Glucose Monitoring Suppl (FREESTYLE LITE) DEVIIndications: DM type 2, goal A1C below 8.0 Use to test blood sugar twice daily or as directed DX 250.00 1 Device 0 015 Active polyethylene glycol 3350 (MIRALAX) packet Take [...] mouth daily with dinner. 90 Tablet 3 023 Active Nystatin-Triamci nolone 744438-9.1 UNIT/GM-% External Ointment (Mycolog)Indicat ions:Dermatitis Apply topically to affected area 3 times a day. Apply to affected area 15 g 1 023 Active Furosemide 20 MG Oral Tablet (Lasix)Indicatio ns:HTN, goal below 140/90,Coronary artery disease involving ugashik heart without angina pectoris, unspecified vessel or lesion type,Encounter for monitoring diuretic therapy,Old myocardial infarct Take 1 Tablet by mouth in the morning. 90 Tablet 3 023 Active metFORMIN HCl 1000 MG Oral Tablet (Glucophage)Judith cations:Type 2 diabetes mellitus with hemoglobin A1c goal of less than 8.0% (HCC) TAKE 1 TABLET TWICE A DAY WITH MORNING AND EVENING MEALS 180 Tablet 3 024 Active Pen [place] 32G X 4 MMIndications:Ty pe 2 diabetes mellitus with hemoglobin A1c goal of less than 8.0% (HCC) Use as directed. To administer insulin. 100 Each 3 024 Active FreeStyle LancetsIndicatio ns:Type 2 diabetes mellitus with hemoglobin A1c goal of less than 8.0% (HCC) Use to test blood sugar twice daily or as directed E11.9 180 Each 3 024 Active FreeStyle Lite Test In Vitro Strip (Glucose Blood)Indication s:Type 2 diabetes mellitus with hemoglobin A1c goal of less than 8.0% ([facility]) Use to test blood sugar twice daily or as directed DX 250.00 200 Strip 3 Active Nitroglycerin 0.4 MG Sublingual Tablet Sublingual (Nitrostat) 1 tab under tongue every 5 minutes for chest pain as needed, up to 3 in 15 minutes 25 Tablet 1 024 Active Additional Information Patient not taking.Reported on 06/28/2024 Albuterol Sulfate HFA 108 (90 Base) MCG/ACT Inhalation Aerosol Solution Inhale 2 Puffs by mouth every 6 hours as needed for Cough, Shortness of Breath or Wheezing. 18 g 3 4 8:55 AM EST Active Metoprolol Succinate ER 100 MG Oral Tablet Extended Release 24 Hour (toPROL XL) TAKE 1 TABLET IN THE MORNING AND 1 TABLET BEFORE BEDTIME 180 Tablet 3 024 Active Chlorzoxazone 500 MG Oral TabletIndication s:Lumbar radiculopathy TAKE 1 TABLET AT BEDTIME AND UP TO 3 ADDITIONAL TABLETS DURING THE DAY NEEDED FOR NECK AND HEAD PAIN 270 Tablet 3 024 Active Ondansetron HCl 4 MG Oral TabletIndication s:Nausea Take 1 Tablet by mouth every 8 hours as needed for Nausea. 30 Tablet 1 024 Active Ajovy 225 MG/1.5ML Subcutaneous Solution Auto-injectorInd ications:Migrain e with aura and without status migrainosus, not intractable Inject 225 mg under the skin Every Month. 4.5 mL 3 024 Active Ezetimibe 10 MG Oral Tablet (Zetia) TAKE 1 TABLET EVERY EVENING 90 Tablet 1 024 Active Rosuvastatin Calcium 40 MG Oral Tablet (Crestor)Indicat ions:Dyslipidemi a, goal LDL below 70 TAKE 1 TABLET DAILY WITH DINNER 90 Tablet 1 024 Active Tiotropium [place] ol 2.5-2.5 MCG/ACT Inhalation Aerosol Solution (Stiolto Respimat)Indicat ions:Centrilobul ar emphysema (HCC) Inhale 2 Puffs by mouth in the morning. 12 g 3 024 Active Pantoprazole Sodium 40 MG Oral Tablet Delayed Release (Protonix)Indica tions:Gastroesop hageal reflux disease with esophagitis, unspecified whether hemorrhage Take 1 Tablet by mouth in the morning. 90 Tablet 3 024 Active FLUoxetine HCl 40 MG Oral Capsule (PROzac) Take 1 Capsule by mouth in the morning. 90 Capsule 1 024 Active Amitriptyline HCl 10 MG Oral Tablet (Elavil) TAKE 1 TABLET BEFORE BEDTIME 90 Tablet 3 024 Active clonazePAM 1 MG Oral Tablet (KlonoPIN)Indica tions:HILLARY (generalized anxiety disorder) TAKE ONE-HALF (1/2) TABLET IN THE EVENING. YOU MAY TAKE AN EXTRA ONE-HALF (1/2) TABLET DAILY NEEDED FOR ANXIETY 90 Tablet 1 024 Active Pioglitazone HCl 45 MG Oral Tablet (Actos) Take 1 Tablet by mouth in the morning. 90 Tablet 3 024 Active Pioglitazone HCl 30 MG Oral Tablet (Actos) Take 1 Tablet by mouth in the morning. 90 Tablet 3 024 2023 Discontinued Empagliflozin 10 MG Oral Tablet (Jardiance)Indic ations:Type 2 diabetes mellitus with hemoglobin A1c goal of less than 8.0% ([facility]) Take 1 Tablet by mouth in the morning. 90 Tablet 3 024 2023 Discontinued(P atient preference/dis continuation) documented as of this encounter (statuses as of 07/24/2024) Active Problems Problem Noted Date Diagnosed Date Dupuytren's disease of palm of left hand Trigger middle finger of left hand 06/04/2024 [...] done. 11/11 Upper endoscopy ok. 12/10 in [place]--upper/lower scope WNL--angie [address] Kaushal Giang. 11/19/20 MRI C-Spine in [place]. DDD most C5-6. Mod central canal and [...] (coronary artery disease) 07/07/2012 Overview (07/07/2015): STENT 2008 [facility], [place] 2004 HTN, goal below 140/90 04/10/2012 Overview: Per HTN Protocol #27. Type 2 diabetes mellitus wit h hemoglobin A1c goal of less than 8.0% 08/06/2009 Overview (12/18/2015): Per Lipid Taxonomy. ICD-10 update of inactive term Old myocardial infarct 03/13/2009 Overview (06/13/2013): INFEROLATERAL [place] 2004 Chronic rhinitis 10/07/2008 Gastroparesis 04/27/2007 Sarcoidosis 05/12/2005 Overview (05/05/2016): DX 2004 EGD showing nonnecrotizing granuloma stomach + wt loss. Saw pulm. FAMILY HX-GI MALIGNANCY 02/09/2005 documented as of this encounter (statuses as of 07/24/2024) Resolved Problems Problem Noted Date Diagnosed Date Resolved Date Coronary artery disease invo lving ugashik coronary artery of ugashik heart with unstable angina pectoris 09/05/2019 08/06/2021 [...] infarction 03/13/2009 Overview (03/13/2009): Modified by Acute [place] Protocol #5. Major depressive disorder, r ecurrent episode, moderate 06/13/2013 documented as of this encounter (statuses as of 07/24/2024) Immunizations Name Administration Dates Next Due COVID-19 mRNA, LNP-s, No Pre serve, 2-Dose Series (Moderna) 10/27/2020,09/29/2020 COVID-19, LNP-s, No Preserve , Kalus-sucrose, Ages 12+ (Pfizer) 03/17/2022 COVID-19, MRNA-LNP, 24-25, P R, 30MCG/0.3ML, IM, 12YRS AND ABOVE (Pfizer-Comirnaty) 05/29/2024 COVID-19, MRNA-LNP, PF, 30 M CG/0.3 mL, 12 YRS AND ABOVE, IM (PFIZER-Comirnaty) 06/07/2023 COVID-19, mRNA, LNP-s, PF, B ooster, [...] Seasonal Influenza, Quadriva lent, No Preserve, IM 05/16/2020,05/10/2017,06/24/2016,10/01/201506/24/2017 Seasonal Influenza, Trivalen t, Adjuvanted, 65+ YRS, [...] No 11/08/2014 12:00 PM Lali Graf OSA * Do you have serious difficulty walking or climbing stairs? (5 years old or older) Answer Date of Assessment Author Yes 11/08/2014 12:00 PM Lali Graf LUISA * Do you have difficulty dressing or bathing? (5 years old or older) Answer Date of Assessment Author No 11/08/2014 12:00 PM EDLali Hooper LUISA * Because of a physical, mental, [...] Lali Renteria OSA documented in this encounter Progress Notes * Liana Breaux, [facility] - 07/24/2024 10:03 AM EST Medication Therapy Disease Management Clinic - Diabetes Management Progress Note Shelly Macdonald, identified by name and date of , is a 74 year old female being seen for diabetes management/education. Patient presents for return diabetic visit. DIABETES: Current diabetic medications: Metformin 1000 mg BID Actos 30 mg daily Jardiance 10 mg daily Medication Injection Site: N/A Lifestyle: Diet: unchanged Glucose Review/SMBG: Readings obtained from patient documented BG logbook Pre am Post am Pre Lunch Post Lunch Pre pm Post pm HS 3am 115 113 138 128 123 139 60 121 135 135 142 126 130 102 100 131 Average 121 #DIV/0! #DIV/0! #DIV/0! #DIV/0! #DIV/0! #DIV/0! #DIV/0! Hi 142 0 0 0 0 0 0 0 Lo 60 0 0 0 [address] 0 0 0 0 0 0 0 Range 82 0 0 0 0 0 0 0 Hypoglycemia: Does your blood sugar go below 70 mg/dL? No Hyperglycemia symptoms present: none Recent Labs Units 05/10/24 0742 01/27/24 0814 10/25/23 0917 HEMOGLOBIN A1C - [facility] % 8.1* 6.9* 8.8* Recent Labs Units 05/10/24 0742 01/27/24 0814 10/25/23 0917 ESTIMATED GLOMERULAR FILTRATION RATE - [facility] mL/min 52* 47* 50* CREATININE - [facility] mg/dL 1.1* 1.2* 1.2* HYPERTENSION: Patient on ACEi/ARB: no, not indicated BP Readings from Last 3 Encounters: 06/28/24 128/80 05/14/24 132/68 05/10/24 134/84 Blood pressure at goal: yes HYPERLIPIDEMIA: Recent Labs Units 06/28/24 1027 05/06/23 1057 LDL CHOLESTEROL (CALCULATED) - [facility] mg/dL -- 48 LDL CHOLESTEROL (DIRECT MEASURE) - [facility] mg/dL 38 -- Does patient have clinical ASCVD? No, is patient LDL less than 70mg/dL? Yes HEALTH MAINTENANCE REVIEW: Health Maintenance Due Topic Date Due DISCUSS TOBACCO CESSATION (REFER TO SMARTSET #6771) 05/10/2018 Mammogram 12/10/2023 Diabetic Eye Exam 06/30/2024 COVID-19 Vaccine ( season) 2024 Albumin/Creatinine Ratio 08/05/2024 Diabetic Foot Exam 08/05/2024 CKD PHOS USE SMARTSET 61887 08/05/2024 ASSESSMENT & PLAN: ICD-10-CM 1. Type 2 diabetes mellitus with hemoglobin A1c goal of less than 8.0% (HCC) E11.9 2. Coronary artery disease involving ugashik heart without angina pectoris, unspecified vessel or lesion type I25.10 3. HTN, goal below 140/90 I10 4. Dyslipidemia, goal LDL below 70 E78.5 BG Readings - Blood sugars controlled. BG values controlled at this time. Medications - Reviewed current regimen, patient is adherent to regimen. Will discontinue jardiance,patient presenting with classic yeast infection symptoms- has appointment tomorrow to discuss. Patient has now had 2 yeast infections during jardiance treatment, will discontinue to prevent future occurrence. Patient will increase actos to offset jardiance discontinuation. Patient is agreeable. Diet, Exercise, Lifestyle - No significant lifestyle changes since last visit. Discussed with patient. Patient is agreeable to SMBG 1 time(s) daily. Patient aware to contact clinic if any hypoglycemia before next visit. MEDICATION CHANGES: yes, see below; preferred pharmacy: mail order Diabetic Medications: Metformin 1000 mg BID INCREASE: Actos 45 mg daily STOP: Jardiance 10 mg daily HEALTH MAINTENANCE INTERVENTIONS: Labs: Up to Date Immunizations: Up to Date Foot Exam: Up to Date Eye Exam: Up to Date Annual Wellness Visit: Up to Date FOLLOW UP: Return to clinic in 8 weeks Visit date not found I spent a total of 30-39 minutes (exact time 30 mins) on the date of service in preparation, delivery, and documentation of the care provided to hSelly Macdonald excluding any time spent in the performance of separately billed services. Liana Breaux [facility] Clinical Pharmacist - Mental Measurements Teacher Medication Therapy Management Clinic 07/24/2024, 10:04 AM documented in this encounter Plan of Treatment Upcoming Encounters Date Type Department Care Team (Late st Contact Info) Description 07/25/2024 9:00 AM EST Office Visit Family [facility] [address] [place] [address] Jenise Bone CRNP [address] [place] [address] 08/02/2024 8:00 AM EST Telemedicine Psychiatry, [facility] [address] [place] [address] Pedro Luis Casas CRNP [address] [place] [address] 08/06/2024 8:30 AM EST Laboratory Laboratory, [facility] [address] [facility] [place] [address] [facility] [address] [facility] [place] [address] 08/28/2024 9:45 AM EST Imaging Radiology [facility] 1st Floor, [place] [address] [facility] [place] [address] 08/28/2024 11:00 AM EST Office Visit Interventional Pain Center, [facility] [address] [facility] [place] [address] Zi Ramirez DO [address] [place] [id number] 08/30/2024 9:40 AM EST Office Visit Rheumatology [address] [place], [place] [address] Matthew Mari MD [address] [place] [address] [place] [address] 09/17/2024 11:30 AM EST Office Visit Hematology/Oncology [facility] [address] [facility] [place] [address] Angela Renteria CRNP [address] [facility] [place] [address] 09/25/2024 10:00 AM EST Office Visit Pharmacy, [facility] [address] [facility] [place] [address] [facility] [address] [facility] [place] [address] 10/08/2024 9:00 AM EST Office Visit Dermatology [facility] ([place] [place] [place] [address] [place] [address] Justyna Krishnamurthy PA-C [address] [facility] [place] [place] [address] 11/19/2024 9:20 AM EDT Office Visit Hepatology, [facility] [address] [facility] [place] [address] Lali Chowdhury DO [address] [place] [address] 11/20/2024 7:00 AM EDT Office Visit Neurology [facility] [address] [facility] [address] [place] [address] Kendra Montano PA-C [address] [place] [address] 05/31/2025 9:20 AM EDT Office Visit Family Practice [facility] [address] [facility] [place] [address] Brent Smith MD [address] [facility] [place] [address] Scheduled Procedures Name Priority Associated Diagnoses Date/Ti [...] Additional history exists CKD PHOS USE SMARTSET 46774 08/05/202407/22, 08/09/2022, 08/06/2021, Additional history exists Diabetic Foot Exam 08/05/2024 08/05/2023, 1 09/18/2021, 09/04/2021, Additional history exists GFR 11/07/2024 05/10/2024, 06/0 02/2024, 10/25/2023, Additional history exists HbA1c 11/07/2024 05/10/2024, 06/0 02/2024, 10/25/2023, Additional history exists O2 ASSESSMENT COMPLETED IN PAST YEAR FOR COPD 11/30/2024 12/01/2023 Adult Wellness Visit 03/27/2025 03/27/2024, 10/21/19 22 Depression Monitoring 05/10/2025 05/10/2024 B-12 06/28/2025 06/28/2024, 04/2 12/2023, 05/31/2023, Additional history exists CKD HGB USE SMARTSET 01124 06/28/202506/28, 05/10/2024, 05/10/2024, Additional history exists Colonoscopy [...] as of this encounter Visit Diagnoses Diagnosis Type 2 diabetes mellitus with hemoglobin A1c goal of less than 8.0% (HCC)- Primary Coronary artery disease involving ugashik heart without angina pectoris, unspecified vessel or lesion type HTN, goal below 140/90 Unspecified essential hypertension Dyslipidemia, goal LDL below 70 Other and unspecified hyperlipidemia documented in this encounter Advance Directives Documents on File Type Date Recorded Patient Mortgage Lender 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 Care Teams Household Appliance Installer Relationship Specialty Start Date End Date Brent Smith MD [address] [place] [address] PCP - General Family Medicine 04/20/23 documented as of this encounter
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
--- OUTSIDE RECORDS SUMMARY | 2024-08-09 14:36 | External Medical Summary | Summary of Care ---
Author Name Unknown Organization [facility] Address [address] [facility] [place] [address] Phone [phone] Care Team Providers Care Cashier Payments Received Name Role Phone Brent Smith MD Primary Care Provider + Reason for Visit * Reason Onset Date Comments Test Results 07/09/2024 Encounter Details Date Type Department Care Team (Late st Contact Info) Description 07/09/2024 Telephone Cardiology, [facility] [address] [place] [address] Markell Brooks, PAEddyC [address] [place] [id number] Test Results Allergies Active Allergy Reactions Criticality [...] as of this encounter (statuses as of 07/09/2024) Medications ASPIRIN 81 MG PO TABS Take [...] 90 Tablet 3 3 Active Nystatin-Triamcin olone 856615-6.1 UNIT/GM-% External Ointment (Mycolog)Indicati ons:Dermatitis Apply topically to affected area 3 times a day. Apply to affected area 15 g 1 3 Active Furosemide 20 MG Oral Tablet (Lasix)Indication s:HTN, goal below 140/90,Coronary artery disease involving [place] heart without angina pectoris, unspecified vessel or [...] MEALS 180 Tablet 3 4 Active Pen [place] 32G X 4 MMIndications:Typ e 2 diabetes [...] DINNER 90 Tablet 1 4 Active Tiotropium [place]-Olodatero l 2.5-2.5 MCG/ACT Inhalation Aerosol Solution (Stiolto [...] hemoglobin A1c goal of less than 8.0% ([facility]) Take 1 Tablet by mouth in the morning. 90 Tablet 3 4 Active documented as of this encounter (statuses as of 07/09/2024) Active Problems Problem Noted Date Diagnosed Date [...] done. 11/11 Upper endoscopy ok. 12/10 in [place]--upper/lower scope WNL--angie [address] Kaushal Giang. 11/19/20 [place] C-Spine in [place] DDD most C5-6. Mod central canal and mod left foraminal stenosis. Had C5-6 b/l NATAN 03/10 colon @[facility]--WNL angie 10y 03/07 MRI lumbar some [...] artery disease) 07/07/2012 Overview (07/07/2015): STENT 2007 [facility], [place] 2004 HTN, goal below 140/90 04/10/2012 Overview: Per HTN Protocol #27. Type 2 diabetes mellitus wit h hemoglobin A1c goal of less than 8.0% 08/06/2009 Overview (12/18/2015): Per Lipid Taxonomy. 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 Saw pulm. FAMILY HX-GI MALIGNANCY 02/09/2005 documented as of this encounter (statuses as of 07/09/2024) Resolved Problems Problem Noted Date Diagnosed Date Resolved Date Coronary artery disease invo lving [place] coronary artery of [place] heart with unstable angina pectoris 09/05/2019 08/06/2021 [...] infarction 03/13/2009 Overview (03/13/2009): Modified by Acute [place] Protocol #5. Major depressive disorder, r ecurrent episode, moderate 06/13/2013 documented as of this encounter (statuses as of 07/09/2024) Immunizations Name Administration Dates Next Due COVID-19 mRNA, LNP-s, No Pre serve, 2-Dose Series (Moderna) 10/27/2020,09/29/2020 COVID-19, LNP-s, No Preserve , Klaus-sucrose, Ages 12+ (Pfizer) 03/17/2022 COVID-19, MRNA-LNP, 24-25, P R, 30MCG/0.3ML, IM, 12YRS AND ABOVE (Charlie App-Comirnaty) 05/29/2024 COVID-19, MRNA-LNP, PF, 30 M CG/0.3 mL, 12 YRS AND ABOVE, IM (FireFly LED Lighting-Comirnaty) 06/07/2023 COVID-19, mRNA, LNP-s, PF, B ooster, 100mcg/0.5mg (Moderna) 07/03/2021 Covid-19, Mrna, Lnp-s, Pf, B ivalent, 30 Mcg, IM, 12 yrs and above (Charlie App) 08/18/2022 H1N1 2009 Influenza, IM 09/05/2009 Hepatitis [...] Author No 11/08/2014 12:00 PM EDT Lali Renteria, LUISA * Are you blind or do you have serious difficulty seeing, even when wearing glasses? Answer Date of Assessment Author No 11/08/2014 12:00 PM EDT Lali Renteria, LUISA * Do you have serious difficulty [...] encounter Miscellaneous Notes * Telephone Encounter - Art Parks LPN - 07/09/2024 10:03 AM EST Addressed in patients MyChart encounter. ----- Message from Markell Brooks sent at 07/06/2024 6:01 PM EST ----- July 06, 2024 Lexiscan Interpretation Summary (as per Dr. Morales): Abnormal Lexiscan nuclear myocardial perfusion imaging study demonstrating a small area of mild mid anterior wall ischemia. Findings may represent diagonal branch vessel disease as the left ventricular apex is not involved, however, LAD ischemia can not be excluded. Gated SPECT images reveals normal myocardial thickening andwall motion. The LV ejection fraction is calculated at 71%. Patient called personally. Stress test results discussed. Options discussed. Please make arrangements for diagnostic cardiac catheterization with Dr. Morales at [facility]. documented in this encounter Plan of Treatment Upcoming Encounters Date Type Department Care Team (Late st Contact Info) Description 07/18/2024 10:00 AM EST Cardiac Studies Cardiac Studies, [facility] [address] [place] [address] 07/24/2024 10:00 AM EST Office Visit Pharmacy, [facility] [address] [facility] [place] [address] [facility] [address] [place] [address] 08/02/2024 8:00 AM EST Telemedicine Psychiatry, [facility] [address] [facility] [place] [address] Pedro Luis Casas CRNP [address] [place] [address] 08/10/2024 8:00 AM EST Laboratory Laboratory, [facility] [address] [facility] [place] [phone] [facility] [address] [facility] [place] [address] 08/28/2024 9:45 AM EST Imaging Radiology [facility] 1st Floor, [place] [address] [facility] [place] [address] 08/28/2024 11:00 AM EST Office Visit Interventional Pain Center, [facility] [address] [facility] [place] [address] Zi Ramirez, [address] [place] [phone] 08/30/2024 9:40 AM EST Office Visit Rheumatology [address] [place] [address] Matthew Mari MD [address] [place] [address] [place] [address] 09/17/2024 11:30 AM EST Office Visit Hematology/Oncology [facility] [address] [facility] [place] [phone] Angela Renteria CRNP [address] [facility] [place] [address] 10/08/2024 9:00 AM EST Office Visit Dermatology [facility] [address] [place] [address] Justyna Krishnamurthy PA-C [address] [place] [address] 11/19/2024 9:20 AM EDT Office Visit Hepatology, [facility] [address] [place] [address] Lali Chowdhury DO [address] [place] [address] 11/20/2024 7:00 AM EDT Office Visit Neurology [facility] [address] [place] [address] Kendra Montano PA-C [facility] [place] [address] 05/31/2025 9:20 AM EDT Office Visit Family Practice [facility] [address] [place] [address] Brent Smith MD [address] [place] [address] Scheduled Procedures Name Priority Associated Diagnoses Date/Ti [...] Additional history exists CKD PHOS USE SMARTSET 47972 08/05/202407/22, 08/09/2022, 08/06/2021, Additional history exists Diabetic Foot Exam 08/05/2024 08/05/2023, 1 09/18/2021, 09/04/2021, Additional history exists GFR 11/07/2024 05/10/2024, 06/0 02/2024, 10/25/2023, Additional history exists HbA1c 11/07/2024 05/10/2024, 06/0 02/2024, 10/25/2023, Additional history exists O2 ASSESSMENT COMPLETED IN PAST YEAR FOR COPD 11/30/2024 12/01/2023 Adult Wellness Visit 03/27/2025 03/27/2024, 10/21/19 22 Depression Monitoring 05/10/2025 05/10/2024 B-12 06/28/2025 06/28/2024, 2 12/2023, 05/31/2023, Additional history exists CKD HGB USE SMARTSET 26488 06/28/202506/28, 05/10/2024, 05/10/2024, Additional history exists Colonoscopy [...] Documents on File Type Date Recorded Patient Laundry Aide 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 Care Teams Cashier Payments Received Relationship Specialty Start Date End Date Brent Smith MD [address] [place] [address] PCP - General Family Medicine 04/20/23 documented as of this encounter
--- OUTSIDE RECORDS SUMMARY | 2024-08-09 14:36 | External Medical Summary ---
Author Name Unknown Address Unknown Organization K01:[facility] [place] [address] [place] [address] Laboratory Report Ordering Provider Test Date Status PARUL SAUCEDOSanjay 07/25/2024 09:28:06 Final Observation Date Value Abnormality Reference (Units ) Status Bacterial vaginosis [Interpretation] in Vaginal fluid Qualitative 07/25/2024 09:28:06 Negative Negative Final Negative for Bacterial Vagin osis. Correlate results with other clinical findings. Sagrario sp DNA [Presence] in Vaginal fluid by Probe 07/25/2024 09:28:06 Positive Abnormal Negative Final Sagrario species group RNA de tected. Correlate results with other clinical findings. Sagrario glabrata RNA [Presen ce] in Vaginal fluid by BARBARA with probe detection 07/25/2024 09:28:06 Negative Negative Final No Sagrario glabrata RNA dete cted. Correlate results with other clinical findings. Trichomonas vaginalis DNA [P resence] in Vaginal fluid by Probe 07/25/2024 09:28:06 Negative Negative Final No Trichomonas vaginalis RNA detected. Performing Location LABORATORY [facility] - [address] [place] [address]
--- OUTSIDE RECORDS SUMMARY | 2024-08-09 14:36 | External Medical Summary | Summary of Care ---
Author Name Unknown Organization [facility] Address [address] [facility] [place] [address] Phone [phone] Care Team Providers Care Supervisor [place] Name Role Phone Brent Smith MD Primary Care Provider + Encounter Details Date Type Department Care Team (Late st Contact Info) Description 07/06/2024 Orders Only Unspecified Department Markell Brooks PA-C [address] [place] [phone] Allergies Active Allergy Reactions Criticality Noted Date [...] as of this encounter (statuses as of 07/06/2024) Medications ASPIRIN 81 MG PO TABS Take [...] 90 Tablet 3 3 Active Nystatin-Triamcin olone 777639-0.1 UNIT/GM-% External Ointment (Mycolog)Indicati ons:Dermatitis Apply topically to affected area 3 times a day. Apply to affected area 15 g 1 3 Active Furosemide 20 MG Oral Tablet (Lasix)Indication s:HTN, goal below 140/90,Coronary artery disease involving [place] heart without angina pectoris, unspecified vessel or [...] MEALS 180 Tablet 3 4 Active Pen [place] 32G X 4 MMIndications:Typ e 2 diabetes [...] DINNER 90 Tablet 1 4 Active Tiotropium [place]-Olodatero l 2.5-2.5 MCG/ACT Inhalation Aerosol Solution (Stiolto [...] hemoglobin A1c goal of less than 8.0% ([facility]) Take 1 Tablet by mouth in the morning. 90 Tablet 3 4 Active documented as of this encounter (statuses as of 07/06/2024) Active Problems Problem Noted Date Diagnosed Date [...] done. 11/11 Upper endoscopy ok. 12/10 in [place]--upper/lower scope WNL--angie [address] Kaushal Giang. 11/19/20 [place]Spine [place]. DDD most C5-6. Mod central canal and mod left foraminal stenosis. Had C5-6 b/l NATAN 03/10 colon @[facility]--WNL angie 10y 03/07 MRI lumbar [...] artery disease) 07/07/2012 Overview (07/07/2015): STENT 2007 [facility], [place] 2004 HTN, goal below 140/90 04/10/2012 [...] as of this encounter (statuses as of 07/06/2024) Resolved Problems Problem Noted Date Diagnosed Date Resolved Date Coronary artery disease invo lving [place] coronary artery of [place] heart with unstable angina pectoris 09/05/2019 08/06/2021 [...] as of this encounter (statuses as of 07/06/2024) Immunizations Name Administration Dates Next Due COVID-19 mRNA, LNP-s, No Pre serve, 2-Dose Series (Moderna) 10/27/2020,09/29/2020 COVID-19, LNP-s, No Preserve , Klaus-sucrose, Ages 12+ (Pfizer) 03/17/2022 COVID-19, MRNA-LNP, 24-25, P R, 30MCG/0.3ML, IM, 12YRS AND ABOVE (Udemy-Comirnaty) 05/29/2024 COVID-19, MRNA-LNP, PF, 30 M CG/0.3 mL, 12 YRS AND ABOVE, IM (MyClean-Comirnaty) 06/07/2023 COVID-19, mRNA, LNP-s, PF, B ooster, [...] Vac., MDV , IM, 0.5 mL (Fluzone) 06/03/2014,06/07/2013,04/27/2012,05/23,05/07/2010,09/05/2009,06/07/20,06/02/2007,06/09/2005 Seasonal Influenza Virus Vac cine, Unspecified Formulation [...] 05/18/2023 Does the household have a re lar source of income? (Household - for ages [...] Author No 11/08/2014 12:00 PM EDT Lali Rneteria LUISA * Do you have serious difficulty walking or climbing stairs? (5 years old or older) Answer Date of Assessment Author Yes 11/08/2014 12:00 PM EDT Lali Renteria OSA * Do you have difficulty dressing [...] 10:00 AM EST Cardiac Studies Cardiac Studies, [facility] [address] [facility] [place] [address] 07/24/2024 10:00 AM EST Office Visit Pharmacy, [facility] [address] [facility] [place] [address] [facility] [address] [facility] [place] [address] 08/02/2024 8:00 AM EST Telemedicine Psychiatry, [facility] [address] [facility] [place] [address] Pedro Luis Casas CRNP [address] [place] [address] 08/10/2024 8:00 AM EST Laboratory Laboratory, [facility] [address] [facility] [place] [phone] Rik Steele [facility] [address] [facility] [place] [address] 08/28/2024 9:45 AM EST Imaging Radiology [facility] 1st Floor, [place] [address] [facility] [place] [address] 08/28/2024 11:00 AM EST Office Visit Interventional Pain Center, [facility] [address] [facility] [place] [address] Zi Ramirez, DO [address] [place] [phone] 08/30/2024 9:40 AM EST Office Visit Rheumatology [address] [place] [address] Matthew Mari MD [facility] [place] [address] 09/17/2024 11:30 AM EST Office Visit Hematology/Oncology [facility] [address] [facility] [place] [phone] Angela Renteria, [employer] [address] 10/08/2024 9:00 AM EST Office [facility]at[facility] [address] [facility] [address] Justyna Krishnamurthy [facility] [address] [facility] [address] 11/19/2024 9:20 AM EDT Office Visit Hepatology, [facility] [address] [facility] [place] [address] Lali Chowdhury, [address] [facility] [place] [address] 11/20/2024 7:00 AM EDT Office Visit Neurology [facility] [address] [place], [place] [address] Kendra Montano PA-C [address] [facility] [place] [address] 05/31/2025 9:20 AM EDT Office Visit Family Practice [facility] [address] [place] [address] Brent Smith MD [address] [place] [address] Scheduled Procedures Name Priority Associated Diagnoses Date/Ti [...] Additional history exists CKD PHOS USE SMARTSET 87328 08/05/202407/22, 08/09/2022, 08/06/2021, Additional history exists Diabetic [...] Additional history exists CKD HGB USE SMARTSET 49784 06/28/202506/28, 05/10/2024, 05/10/2024, Additional history exists Colonoscopy [...] Not on filedocumented as of this encounter Procedures Procedure Name Priority Date/Time Associated Diagnosis Comments NM MYOCARDIAL PERFUSION IMAGING SPECT MULTIPLE STUDIES WITH PHARMACOLOGIC INTERVENTION Routine 07/06/2024 12:03 PM EST documented in this encounter Results * NM MYOCARDIAL PERFUSION IMAGING SPECT MULTIPLE STUDIES WITH PHARMACOLOGIC INTERVENTION (07/06/2024 12:03 PM EST) LEFT VENTRICULAR EJECTION FRACTION 71 % [employer] CARDIOLOGY 07/06/2024 12:0 3 PM EST us Markell Brooks PA-C RAD NUCLEAR MED Final Resul t [facility] CARDIOLOGY documented in this encounter Advance Directives Documents on File Type Date Recorded Patient Bell Spinner Sousaphones 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 Care Teams Supervisor [place] Relationship Specialty Start Date End Date Brent Smith MD [address] [facility] [place] [address] PCP - General Family Medicine 04/20/23 documented as of this encounter
--- OUTSIDE RECORDS SUMMARY | 2024-08-09 14:37 | External Medical Summary | Summary of Care ---
Author Name Unknown Organization [facility] Address [address] [place] [address] Phone [phone] Care Team Providers Care Fishing Gear Mechanic Name Role Phone Brent Smith MD Primary Care Provider + Reason for Visit * Reason Onset Date Comments Appointment 06/28/2024 Encounter Details Date Type Department Care Team (Late st Contact Info) Description 06/28/2024 Telephone Cardiology, [facility] [address] [place] [address] Markell Brooks, PAEddyC [address] [place] [phone] Appointment Allergies Active Allergy Reactions Criticality Noted [...] 90 Tablet 3 3 Active Nystatin-Triamcin olone 876627-8.1 UNIT/GM-% External Ointment (Mycolog)Indicati ons:Dermatitis Apply topically to affected area 3 times a day. Apply to affected area 15 g 1 3 Active Furosemide 20 MG Oral Tablet (Lasix)Indication s:HTN, goal below 140/90,Coronary artery disease involving quinault heart without angina pectoris, unspecified vessel or lesion type,Encounter for monitoring diuretic therapy,Old myocardial infarct Take 1 Tablet by mouth in the morning. 90 Tablet 3 3 Active metFORMIN HCl 1000 MG Oral Tablet (Glucophage)Indic ations:Type 2 diabetes mellitus with hemoglobin A1c goal of less than 8.0% ([facility]) TAKE 1 TABLET TWICE A DAY WITH MORNING AND EVENING MEALS 180 Tablet 3 4 Active Pen Jennings 32G X 4 MMIndications:Typ e 2 diabetes [...] DINNER 90 Tablet 1 4 Active Tiotropium [place]-Olodatero l 2.5-2.5 MCG/ACT Inhalation Aerosol Solution (Stiolto [...] goal of less than 8.0% ([facility]) Take 1 Tablet by mouth in [...] done. 11/11 Upper endoscopy ok. 12/10 in [place]--upper/lower scope WNL--angie [address] Kaushal Giang. 11/19/20 MRI C-Spine in [place]. DDD most C5-6. Mod central canal and mod left foraminal stenosis. Had C5-6 b/l NATAN 03/10 colon @[facility]--WNL angie 10y 03/07 MRI lumbar some [...] artery disease) 07/07/2012 Overview (07/07/2015): STENT 2007 [facility] [place] 2004 HTN, goal below 140/90 04/10/2012 Overview: Per HTN Protocol #27. Type 2 diabetes mellitus wit h hemoglobin A1c goal of less than 8.0% 08/06/2009 Overview (12/18/2015): Per Lipid Taxonomy. ICD-10 update of inactive term Old myocardial infarct 03/13/2009 Overview (06/13/2013): INFEROLATERAL [place] 2003 Chronic rhinitis 10/07/2008 Gastroparesis 04/27/2007 Sarcoidosis 05/12/2005 Overview (05/05/2016): DX 2004 EGD showing nonnecrotizing granuloma stomach + wt loss. Saw pulm. FAMILY HX-GI MALIGNANCY 02/09/2005 documented as of this encounter (statuses as of 07/04/2024) Resolved Problems Problem Noted Date Diagnosed Date Resolved Date Coronary artery disease invo lving quinault coronary artery of quinault heart with unstable angina pectoris 09/05/2019 08/06/2021 [...] infarction 03/13/2009 Overview (03/13/2009): Modified by Acute [place] Protocol #5. Major depressive disorder, r ecurrent episode, moderate 06/13/2013 documented as of this encounter (statuses as of 07/04/2024) Immunizations Name Administration Dates Next Due COVID-19 mRNA, LNP-s, No Pre serve, 2-Dose Series (Moderna) 10/27/2020,09/29/2020 COVID-19, LNP-s, No Preserve , Klaus-sucrose, Ages 12+ (Pfizer) 03/17/2022 COVID-19, MRNA-LNP, 24-25, P R, 30MCG/0.3ML, IM, 12YRS AND ABOVE ([employer]-Comirnaty) 05/29/2024 COVID-19, MRNA-LNP, PF, 30 M CG/0.3 mL, 12 YRS AND ABOVE, IM ([employer]-Comirnaty) 06/07/2023 COVID-19, mRNA, LNP-s, PF, B ooster, 100mcg/0.5mg (Moderna) 07/03/2021 Covid-19, Mrna, Lnp-s, Pf, B ivalent, 30 Mcg, IM, 12 yrs and above ([employer]) 08/18/2022 H1N1 2009 Influenza, IM 09/05/2009 Hepatitis [...] No 05/18/2023 Does the household have a [facility] source of income? (Household - for ages [...] No 11/08/2014 12:00 PM EDLali Hooper OSA documented as of this encounter Mental Status * Because of a physical, mental, or emotional condition, do you have serious difficulty concentrating, remembering, or making decisions? (5 years old or older) Answer Entry Date Author Yes 11/08/2014 12:00 PM Lali Graf OSA documented in this encounter Miscellaneous Notes * Telephone Encounter - Marbin Kellogg, LUISA - 07/04/2024 10:08 AM EST Patient is having surgery on 07/09/24. Is there anyway that this patient could have the ECHO and the NM testing done before the surgery? This is the patients [employer] Portal Message, thank you. I know you [...] IMG SPECT MULT STUDIES WITH PHARM INTERV [57793.02] (Order [id number] documented in this encounter Plan of Treatment Upcoming Encounters Date Type Department Care Team (Late st Contact Info) Description 07/18/2024 10:00 AM EST Cardiac Studies Cardiac Studies, [facility] [address] [facility] [place] [address] 07/24/2024 10:00 AM EST Office Visit Pharmacy, [facility] [address] [facility] [place] [address] [facility] [address] [place] [address] 08/02/2024 8:00 AM EST Telemedicine Psychiatry, [facility] [address] [facility] [place] [address] Pedro Luis Casas CRNP [address] [facility] [place] [address] 08/10/2024 8:00 AM EST Laboratory Laboratory, [facility] [address] [facility] [place] [phone] [facility] [address] [facility] [place] [address] 08/20/2024 9:00 AM EST Imaging [facility] 2nd Floor Cardiology, [place] [address] [facility] [place] [phone] Gw, Excess Time Radiology [facility] [place] [address] 08/28/2024 9:45 AM EST Imaging Radiology [facility] 1st Floor, [place] [address] [place] [address] 08/28/2024 11:00 AM EST Office Visit Interventional Pain Center, [facility] [address] [facility] [place] [address] Zi Ramirez DO [address] [facility] [place] [phone] 08/30/2024 9:40 AM EST Office Visit Rheumatology [address] [place], [place] [address] Matthew Mari MD [address] [place] [address] [place] [address] 09/17/2024 11:30 AM EST Office Visit Hematology/Oncology [facility] [place] [address] [facility] [place] [phone] Angela Renteria CRNP [address] [place] [address] [place] [address] 10/08/2024 9:00 AM EST Office Visit Dermatology [facility], [address] [place] [address] Justyna Krishnamurthy PA-C [address] [facility] [place] [address] 11/19/2024 9:20 AM EDT Office Visit Hepatology, [facility] [address] [facility] [place] [address] Lali Chowdhury DO [address] [facility] [place] [address] 11/20/2024 7:00 AM EDT Office Visit Neurology [facility] [address] [facility] [address] Kendra Montano PA-C [address] [facility] [place] [address] 05/31/2025 9:20 AM EDT Office Visit Family Practice [facility] [address] [facility] [place] [address] Brent Smith MD [address] [facility] [place] [address] Scheduled Procedures Name Priority Associated Diagnoses Date/Ti [...] Additional history exists CKD PHOS USE SMARTSET 21855 08/05/202407/22, 08/09/2022, 08/06/2021, Additional history exists Diabetic [...] Additional history exists CKD HGB USE SMARTSET 96388 06/28/202506/28, 05/10/2024, 05/10/2024, Additional history exists Colonoscopy [...] Documents on File Type Date Recorded Patient Planning Aide 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 Care Teams Fishing Gear Mechanic Relationship Specialty Start Date End Date Brent Smith MD [address] [place] [address] PCP - General Family Medicine 04/20/23 documented as of this encounter
--- OUTSIDE RECORDS SUMMARY | 2024-08-09 14:37 | External Medical Summary | Summary of Care ---
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 type MTZ (dyspnea on exertion) Expected: 07/12/2024, Expires: 07/28/2026 Scheduled Procedures Name Priority Associated Diagnoses Date/Ti me TRIGGER FINGER RELEASE Dupuytren's disease of palm of left hand Trigger middle finger of left hand Trigger index finger of left hand 07/09/2024 7:30 AM EST FASCIECTOMY PARTIAL PALMAR SINGLE DIGIT Dupuytren's disease of palm of left hand Trigger middle finger of left hand Trigger index finger of left hand 07/09/2024 7:30 AM EST Health Maintenance Due Date Last Done Comments Cologuard 1995 Sigmoidoscopy 1995 Fecal Occult Blood Test 01/20/2013 01/21/20 12, 10/07/2000, 10/05/1996 DISCUSS TOBACCO CESSATION (REFER TO SMARTSET #6488) 05/10/2018 05/10/2017 (Discussed) Mammogram 12/10/2023 12/09/2022, 04, 08/20/2021, Additional history exists Diabetic Eye Exam 06/30/2024 06/30/2023, (Done elsewhere), 06/30/2023, Additional history exists COVID-19 Vaccine ( season) 2024 05/29/2024, 06/07/2023, 08/18/2022, Additional history exists Albumin/Creatinine Ratio 08/05/2024 023, 05/06/2023, 07/10/2022, Additional history exists CKD PHOS USE SMARTSET 11788 08/05/202407/22, 08/09/2022, 08/06/2021, Additional history exists Diabetic [...] Additional history exists CKD HGB USE SMARTSET 99728 06/28/202506/28, 05/10/2024, 05/10/2024, Additional history exists Colonoscopy [...] Procedure Name Priority Date/Time Associated Diagnosis Comments NV ECG ROUTINE ECG W/LEAST 12 LDS W/I&R Routine 06/28/2024 9:34 AM EST Chest pain, unspecified type documented in this encounter Results * LDL CHOLESTEROL (DIRECT MEASURE) (06/28/2024 10:27 AM EST) LDL Cholesterol (Direct Measure) 38 <=129 mg/dL 06/28/2024 6:12 PM EST [facility] Comment: LDL Cholesterol Reference Ranges (mg/dL): <70 Target level for high risk ASCVD patient <100 Optimal for general population 100-129 Near optimal for general population 130-159 Borderline high 160-189 High >=190 Very high Blood Venous blood specimen / Unknown Venipuncture / Unknown 06/28/2024 10:27 AM EST 06/28/2024 10:27 AM EST us Markell Brooks PA-C LAB BLOOD ORDERABLES Final Result [facility] [address] [place] [address] * VITAMIN B12 (06/28/2024 10:27 AM EST) Pathologist [facility] Vitamin B12 450 232 - 1,245 pg/mL 06/28/2024 7:09 PM EST [facility] Blood Venous blood specimen / Unknown Venipuncture / Unknown 06/28/2024 10:27 AM EST 06/28/2024 10:27 AM EST Markell S Todd PA-C LAB BLOOD ORDERABLES Final Result LABORATORY [facility] [address] [place] [address] * MAGNESIUM (06/28/2024 10:27 AM EST) Pathologist [facility] Magnesium 1.8 1.5 - 2.6 mg/dL 06/28/2024 6:12 PM EST LABORATORY C Blood Venous blood specimen / Unknown Venipuncture / Unknown 06/28/2024 10:27 AM EST 06/28/2024 10:27 AM EST Markell Patiño Todd PA-C LAB BLOOD ORDERABLES Final Result LABORATORY [facility] [address] [place] [address] * TSH WITH FREE T4 IF INDICATED (06/28/2024 10:27 AM EST) [facility] TSH 2.76 0.27 - 4.20 uIU/mL 06/28/2024 7:09 PM EST [facility] Blood Venous blood specimen / Unknown Venipuncture / Unknown 06/28/2024 10:27 AM EST 06/28/2024 10:27 AM EST Markell S Todd PA-C LAB BLOOD ORDERABLES Final Result LABORATORY [facility] [address] [place] [address] * CBC (06/28/2024 10:27 AM EST) WBC 8.68 4.00 - 10.80 K/uL 06/28/2024 10:46 AM EST LABORATORY [facility] TRA 57-10 RBC 3.71 3.85 - 5.15 M/uL 06/28/2024 10:46 AM EST [facility] HGB 12.2 12.0 - 15.3 g/dL 06/28/2024 10:46 AM EST [facility]10 HCT 37.7 36.0 - 45.2 % 06/28/2024 10:46 AM EST LABORATORY [place] 57-10 MCV 101.6 81.5 - 97.5 fL 06/28/2024 10:46 AM EST [facility] MCH 32.9 27.0 - 34.0 pg 06/28/2024 10:46 AM EST [facility] 57-10 MCHC 32.4 32.0 - 36.0 g/dL 06/28/2024 10:46 AM EST [facility] 57[facility]10 RDW 15.0 11.5 - 15.5 % 06/28/2024 10:46 AM EST [facility]10 PLT 199 140 - 400 K/uL 06/28/2024 10:46 AM EST [facility]10 MPV 10.6 6.6 - 11.1 fL 06/28/2024 10:46 AM EST [facility]10 Blood Venous blood specimen / Unknown Venipuncture / Unknown 06/28/2024 10:27 AM EST 06/28/2024 10:27 AM EST us Markell Brooks PA-C LAB BLOOD ORDERABLES Final Result LABORATORY [facility] TRA 57-10 [address] [place] [address] * EKG (06/28/2024 9:34 AM EST) 06/28/2024 9:34 AM EST Narrative Procedure Note Ariel Lobato, DO - 06/28/2024 9:34 AM EST REASON FOR STUDY: chest pain;chest pain CONCLUSIONS: Normal sinus rhythm Septal infarct (cited on or before 29-Nov-2008) Abnormal ECG When compared with ECG of 22-Dec-2023 08:25, No significant change was found Ventricular Rate: 64 Atrial Rate: 64 NV Interval: 154 QRS Duration: 66 QT/QTc: 436/449 ms P-R-T [place]: 69 : 57 : 58 degrees us Markell Brooks PA-C EKG Final Resul t [facility] CARDIOLOGY documented in this encounter Visit Diagnoses Diagnosis Dupuytren's disease of palm of left hand Trigger middle finger of left hand Trigger finger (acquired) Trigger index finger of left hand Trigger finger (acquired) Chest pain, unspecified type- Primary HTN, goal below 140/90 Unspecified essential hypertension Coronary artery disease involving iqugmiut heart without angina pectoris, unspecified vessel or lesion type Old myocardial infarct Old myocardial infarction Dyslipidemia, goal LDL below 70 Other and unspecified hyperlipidemia Chronic kidney disease, stage 3a (HCC) MTZ (dyspnea on exertion) Other dyspnea and respiratory abnormality Palpitations Unspecified disturbances of skin sensation Dupuytren's disease of palm of left hand Trigger middle finger of left hand Trigger finger (acquired) Trigger index finger of left hand Trigger finger (acquired) documented in this encounter Advance Directives Documents on File Type Date Recorded Patient Content Development Specialist 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 Care Teams Corporate Treasury Analyst Relationship Specialty Start Date End Date Brent Smith MD [address] [facility] [place] [address] PCP - General Family Medicine 04/20/23 documented as of this encounter"
--- OUTSIDE RECORDS SUMMARY | 2024-08-09 14:37 | External Medical Summary | Summary of Care ---
Author Name Unknown Organization [facility] Address [address] [facility] [place] [address] Phone [phone] Care Team Providers Care Application Support Name Role Phone Brent Smith MD Primary Care Provider + Reason for Visit * Reason Onset Date Comments Appointment 06/28/2024 Encounter Details Date Type Department Care Team (Late st Contact Info) Description 06/28/2024 Telephone Cardiology, [facility] [address] [place] [address] Markell Brooks, PAEddyC [address] [place] [phone] Appointment Allergies Active Allergy Reactions Criticality Noted [...] as of this encounter (statuses as of 07/02/2024) Medications ASPIRIN 81 MG PO TABS Take [...] 90 Tablet 3 3 Active Nystatin-Triamcin olone 325807-9.1 UNIT/GM-% External Ointment (Mycolog)Indicati ons:Dermatitis Apply topically to affected area 3 times a day. Apply to affected area 15 g 1 3 Active Furosemide 20 MG Oral Tablet (Lasix)Indication s:HTN, goal below 140/90,Coronary artery disease involving cowlitz heart without angina pectoris, unspecified vessel or lesion type,Encounter for monitoring diuretic therapy,Old myocardial infarct Take 1 Tablet by mouth in the morning. 90 Tablet 3 3 Active metFORMIN HCl 1000 MG Oral Tablet (Glucophage)Indic ations:Type 2 diabetes mellitus with hemoglobin A1c goal of less than 8.0% ([facility]) TAKE 1 TABLET TWICE A DAY WITH MORNING AND EVENING MEALS 180 Tablet 3 4 Active Pen [place] 32G X 4 MMIndications:Typ e 2 diabetes [...] DINNER 90 Tablet 1 4 Active Tiotropium Jolley-Olodatero l 2.5-2.5 MCG/ACT Inhalation Aerosol Solution (Stiolto [...] A1c goal of less than 8.0% ([facility]) Take 1 Tablet by mouth in the morning. 90 Tablet 3 4 Active documented as of this encounter (statuses as of 07/02/2024) Active Problems Problem Noted Date Diagnosed Date [...] done. 11/11 Upper endoscopy ok. 12/10 in [place]--upper/lower scope WNL--angie [address] Kaushal Giang. 11/19/20 MRI C-Spine in [place]. DDD most C5-6. Mod central canal and mod left foraminal stenosis. Had C5-6 b/l NATAN 03/10 colon [facility]--WNL angie 10y 03/07 MRI lumbar [...] artery disease) 07/07/2012 Overview (07/07/2015): STENT 2007 [facility] [place] 2004 HTN, goal below 140/90 04/10/2012 Overview: Per HTN Protocol #27. Type 2 diabetes mellitus wit h hemoglobin A1c goal of less than 8.0% 08/06/2009 Overview (12/18/2015): Per Lipid Taxonomy. 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 Saw pulm. FAMILY HX-GI MALIGNANCY 02/09/2005 documented as of this encounter (statuses as of 07/02/2024) Resolved Problems Problem Noted Date Diagnosed Date Resolved Date Coronary artery disease invo lving cowlitz coronary artery of cowlitz heart with unstable angina pectoris 09/05/2019 08/06/2021 [...] infarction 03/13/2009 Overview (03/13/2009): Modified by Acute [place] Protocol #5. Major depressive disorder, r ecurrent episode, moderate 06/13/2013 documented as of this encounter (statuses as of 07/02/2024) Immunizations Name Administration Dates Next Due COVID-19 mRNA, LNP-s, No Pre serve, 2-Dose Series (Moderna) 10/27/2020,09/29/2020 COVID-19, LNP-s, No Preserve , Klaus-sucrose, Ages 12+ (Pfizer) 03/17/2022 COVID-19, MRNA-LNP, 24-25, P R, 30MCG/0.3ML, IM, 12YRS AND ABOVE ([employer] [place]-Comirnaty) 05/29/2024 COVID-19, MRNA-LNP, PF, 30 M CG/0.3 mL, 12 YRS AND ABOVE, IM ([employer]-Comirnaty) 06/07/2023 COVID-19, mRNA, LNP-s, PF, B ooster, 100mcg/0.5mg (Moderna) 07/03/2021 Covid-19, Mrna, Lnp-s, Pf, B ivalent, 30 Mcg, IM, 12 yrs and above ([employer] [place]) 08/18/2022 H1N1 2009 Influenza, IM 09/05/2009 Hepatitis [...] No 05/18/2023 Does the household have a [facility] source of income? (Household - [...] 12:00 PM EDT Lali Renteria OSA * Because of a physical, mental, [...] encounter Miscellaneous Notes * Telephone Encounter - Letty Higginbotham OSA [...] IMG SPECT MULT STUDIES WITH PHARM INTERV [33901.02] (Order [id number] documented in this encounter Plan of Treatment Upcoming Encounters Date Type Department Care Team (Late st Contact Info) Description 07/09/2024 7:30 AM EST Hospital Encounter OR [facility], Operating Room [facility] [address] [place] [phone] Bill Reilly MD [address] [place] [address] 07/09/2024 7:30 AM EST - 07/09/2024 8:18 AM EST Surgery OR [facility], Operating Room [facility] [address] [place] [phone] Bill Reilly MD [address] [place] [address] LEFT TRIGGER FINGER RELEASE 07/16/2024 10:30 AM EST Office Visit Orthopaedics [facility] [address] [place] [address] Bill Reilly MD [address] [place] [address] 07/18/2024 10:00 AM EST Cardiac Studies Cardiac Studies, [facility] [address] [place] [address] 07/24/2024 10:00 AM EST Office Visit Pharmacy, [facility] [address] [place] [address] [place], [facility] [address] [place] [address] 08/02/2024 8:00 AM EST Telemedicine Psychiatry, [facility] [address] [place] [address] Pedro Luis Casas CRNP [address] [place], [place] [address] 08/10/2024 8:00 AM EST Laboratory Laboratory, [facility] [address] [facility] [place] [phone] [facility] [address] [facility] [place] [address] 08/20/2024 9:00 AM EST Imaging [facility] 2nd Floor Cardiology, [place] [address] [facility] [place] [phone] Gw, Excess Time Radiology [address] [place] [address] [place] [address] 08/28/2024 9:45 AM EST Imaging Radiology [facility] 1st Floor, [place] [facility] [place] [address] 08/28/2024 11:00 AM EST Office Visit Interventional Pain Center, [facility] [place] [address] Zi Ramirez DO [address] [place], [place] [phone] 09/17/2024 11:30 AM EST Office Visit Hematology/Oncolog y [facility] [address] [place] [address] Angela Renteria CRNP [address] [facility] [place] [address] 10/08/2024 9:00 AM EST Office Visit Dermatology [facility] [place] [address] [facility] [place] [address] Justyna Krishnamurthy PA-C [address] [facility] [place] [address] 10/08/2024 9:40 AM EST Office Visit Rheumatology [facility] [address] [facility] [place], [place] [address] Matthew Mari MD [address] [place] [address] 11/19/2024 9:20 AM EDT Office Visit Hepatology, [facility] [address] [place] [address] Lali Chowdhury DO [address] [place] [address] 11/20/2024 7:00 AM EDT Office Visit Neurology [facility] [address] [facility] [place] [address] Kendra Montano PA-C [address] [place] [address] 05/31/2025 9:20 AM EDT Office Visit Family Practice [facility] [address] [place] [address] Brent Smith MD [address] [place] [address] Scheduled Procedures Name Priority Associated Diagnoses Date/Ti [...] Additional history exists CKD PHOS USE SMARTSET 32287 08/05/202407/22, 08/09/2022, 08/06/2021, Additional history exists Diabetic [...] Additional history exists CKD HGB USE SMARTSET 69884 06/28/202506/28, 05/10/2024, 05/10/2024, Additional history exists Colonoscopy [...] Documents on File Type Date Recorded Patient Protection Specialist 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 Care Teams Application Support Relationship Specialty Start Date End Date Brent Smith MD [address] [place] [address] PCP - General Family Medicine 04/20/23 documented as of this encounter
--- OUTSIDE RECORDS SUMMARY | 2024-08-09 14:37 | External Medical Summary | Summary of Care ---
Author Name Unknown Organization [facility] Address [address] [facility] [place] [address] Phone [phone] Care Team Providers Care Supervisor Trust Accounts Name Role Phone Brent Smith MD Primary Care Provider + Reason for Visit * Reason Onset Date Comments Test Results 06/29/2024 Encounter Details Date Type Department Care Team (Late st Contact Info) Description 06/29/2024 Telephone Cardiology, [facility] [address] [place] [address] Markell Brooks, PAEddyC [address] [place] [phone] Test Results Allergies Active Allergy Reactions Criticality Noted Date Comments Andryi Inhibitors Cough Low 07/15/2000 Angiotensin Receptor Blockers [...] 90 Tablet 3 3 Active Nystatin-Triamcin olone 782452-1.1 UNIT/GM-% External Ointment (Mycolog)Indicati ons:Dermatitis Apply topically to affected area 3 times a day. Apply to affected area 15 g 1 3 Active Furosemide 20 MG Oral Tablet (Lasix)Indication s:HTN, goal below 140/90,Coronary artery disease involving ute heart without angina pectoris, unspecified vessel or [...] MEALS 180 Tablet 3 4 Active Pen [place] 32G X 4 MMIndications:Typ e 2 diabetes [...] DINNER 90 Tablet 1 4 Active Tiotropium Leslie-Olodatero l 2.5-2.5 MCG/ACT Inhalation Aerosol Solution (Stiolto [...] A1c goal of less than 8.0% ([facility]) Take 1 Tablet by mouth in the [...] done. 11/11 Upper endoscopy ok. 12/10 in [place]--upper/lower scope WNL--angie [address] Kaushal Giang. 11/19/20 MRI C-Spine in [place]. DDD most C5-6. Mod central canal and mod left foraminal stenosis. Had C5-6 b/l NATAN 03/10 colon @[facility]--WNL angie 10y 03/07 MRI lumbar [...] STENT 2007 [facility] [place] 2004 HTN, goal below 140/90 04/10/2012 [...] Resolved Date Coronary artery disease invo lving ute coronary artery of ute heart with unstable angina pectoris 09/05/2019 08/06/2021 [...] P R, 30MCG/0.3ML, IM, 12YRS AND ABOVE ([employer]-Comirnaty) 05/29/2024 COVID-19, MRNA-LNP, PF, 30 M CG/0.3 mL, 12 YRS AND ABOVE, IM ([employer]-Comirnaty) 06/07/2023 COVID-19, mRNA, LNP-s, PF, B ooster, 100mcg/0.5mg (Moderna) 07/03/2021 Covid-19, Mrna, Lnp-s, Pf, B ivalent, 30 Mcg, IM, 12 yrs and above ([employer]) 08/18/2022 H1N1 2009 Influenza, IM 09/05/2009 Hepatitis [...] encounter Miscellaneous Notes * Telephone Encounter - Radha Toribio CMA - 06/29/2024 11:57 AM EST My g sent. * Telephone Encounter - Radha Toribio CMA - 06/29/2024 11:56 AM EST ----- Message from Markell Brooks sent at 06/28/2024 7:57 PM EST ----- Labs (thyroid, b12, magnesium, and bad cholesterol) are all good documented in this encounter Plan of Treatment Upcoming Encounters Date Type Department Care Team (Late st Contact Info) Description 07/09/2024 7:30 AM EST Hospital Encounter OR [facility], Operating Room [facility] [address] [place] [address] [place] [phone] Bill Reilly MD [address] [place] [address] 07/09/2024 7:30 AM EST - 07/09/2024 8:18 AM EST Surgery OR [facility], Operating Room [facility] [address] [place] [phone] Bill Reilly MD [address] [place] [address] LEFT TRIGGER FINGER RELEASE 07/16/2024 10:30 AM EST Office Visit Orthopaedics [facility] [address] [place] [address] Bill Reilly MD [address] [place] [address] 07/18/2024 10:00 AM EST Cardiac Studies Cardiac Studies, [facility] [address] [place] [address] 07/24/2024 10:00 AM EST Office Visit Pharmacy, [facility] [address] [place] [address] [facility] [address] [place] [address] 08/02/2024 8:00 AM EST Telemedicine Psychiatry, [facility] [address] [place] [address] Pedro Luis Casas CRNP [address] [place] [address] 08/10/2024 8:00 AM EST Laboratory Laboratory, [facility] [address] [place] [phone] [facility] [address] [place] [address] 08/20/2024 9:00 AM EST Imaging [facility] 2nd Floor Cardiology, [place] 132 [facility] [place] [phone] Gw, Excess Time Radiology 132 [facility] [place] [address] 08/28/2024 9:45 AM EST Imaging Radiology [facility] 1st Floor, [place] 132 [facility] [place] [address] 08/28/2024 11:00 AM EST Office Visit Interventional Pain Center, [facility] [address] [facility] [place] [address] Zi Ramirez DO 132 [facility] [place] [phone] 09/17/2024 11:30 AM EST Office Visit Hematology/Oncolog y [facility] [place] [address] [place] [phone] Angela Renteria, JUAN MANUEL [address] [place] [address] [place] [address] 10/08/2024 9:00 AM EST Office Visit Dermatology [facility] [address] [place] [address] Justyna Krishnamurthy PA-C [address] [place] [address] 10/08/2024 9:40 AM EST Office Visit Rheumatology [place] [phone] [facility] [place], [place] [address] Matthew Mari MD [address] [place] [address] [place], [place] [address] 11/19/2024 9:20 AM EDT Office Visit Hepatology, [facility] [place] [address] Lali Chowdhury DO [address] [place] [address] 11/20/2024 7:00 AM EDT Office Visit Neurology [facility] [address] [place] [address] Kendra Montano PA-C [facility] [place] [address] 05/31/2025 9:20 AM EDT Office Visit Family Practice [facility] [address] [place] [address] Brnet Smith MD [address] [place] [address] Scheduled Procedures Name Priority Associated Diagnoses Date/Ti [...] Additional history exists CKD PHOS USE SMARTSET 70480 08/05/202407/22, 08/09/2022, 08/06/2021, Additional history exists Diabetic [...] Additional history exists CKD HGB USE SMARTSET 26922 06/28/202506/28, 05/10/2024, 05/10/2024, Additional history exists Colonoscopy [...] Documents on File Type Date Recorded Patient Inventory Transcriber Expl anation Advance Directives and Living Will 10/08/2021 ADVANCE DIRECTIVE / LIVING WILL * Full Code (Latest Code Status on File) Date Activated Date Inactivated Comments 11/28/2017 8:33 AM 11/28/2017 1:10 PM This order re flects the patients wishes and were consensually agreed upon. Care Teams Supervisor Trust Accounts Relationship Specialty Start Date End Date Brent Smith MD [address] [place] [address] PCP - General Family Medicine 04/20/23 documented as of this encounter
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
--- OUTSIDE RECORDS SUMMARY | 2024-08-09 14:38 | External Medical Summary | Summary of Care ---
Author Name Unknown Organization [facility] Address [address] [facility] [place] [address] Phone [phone] Care Team Providers Care Certified Credit Counselor Name Role Phone Brent Smith MD Primary Care Provider + Reason for Visit * Reason Onset Date Comments Medication Administration 06/28/2024 Flu an d/or Pneumo Inj Encounter Details Date Type Department Care Team (Late st Contact Info) Description 06/28/2024 8:40 AM EST Immunization Ancillary [facility] [address] [facility] [place] [address] [facility] 132 [facility] [place] [address] Need for prophylactic vaccination and inoculation against influenza* Allergies Active Allergy Reactions Criticality Noted Date [...] with dinner. 90 Tablet 3 11/01/2022 Active Nystatin-Triamcinolon e 303229-7.1 UNIT/GM-% External Ointment (Mycolog)Indications: Dermatitis Apply topically to affected area 3 times a day. Apply to affected area 15 g 1 04/18/2023 Active Furosemide 20 MG Oral Tablet (Lasix)Indications:HT N, goal below 140/90,Coronary artery disease involving [place] heart without angina pectoris, unspecified vessel or lesion type,Encounter for monitoring diuretic therapy,Old myocardial infarct Take 1 Tablet by mouth in the morning. 90 Tablet 3 05/13/2023 Active metFORMIN HCl 1000 MG Oral Tablet (Glucophage)Indicatio ns:Type 2 diabetes mellitus with hemoglobin A1c goal of less than 8.0% (HCC) TAKE 1 TABLET TWICE A DAY WITH MORNING AND EVENING MEALS 180 Tablet 3 08/29/2023 Active Pen [place] 32G X 4 MMIndications:Type 2 diabetes mellitus with hemoglobin A1c goal of less than 8.0% (HCC) Use as directed. To administer insulin. 100 Each 3 08/29/2023 Active Pioglitazone HCl 30 MG Oral Tablet (Actos) Take 1 Tablet by mouth in the morning. 90 Tablet 3 08/29/2023 Active FreeStyle LancetsIndications:Ty pe 2 diabetes mellitus with hemoglobin A1c goal of less than 8.0% (HCC) Use to test blood sugar twice daily or as directed E11.9 180 Each 3 09/08/2023 Active FreeStyle Lite Test In Vitro Strip (Glucose Blood)Indications:Typ e 2 diabetes mellitus with hemoglobin A1c goal of less than 8.0% (HCC) Use to test blood sugar twice daily or as directed DX 250.00 200 Strip 3 09/08/2023 Active Nitroglycerin 0.4 MG Sublingual Tablet Sublingual (Nitrostat) 1 tab under tongue every 5 minutes for chest pain as needed, up to 3 in 15 minutes 25 Tablet 1 09/07/2023 Active Albuterol Sulfate HFA 108 (90 Base) MCG/ACT [...] 3 12/07/2023 Active Chlorzoxazone 500 MG Oral TabletIndications:Lum bar radiculopathy TAKE 1 TABLET AT BEDTIME AND UP TO 3 ADDITIONAL TABLETS DURING THE DAY NEEDED FOR NECK AND HEAD PAIN 270 Tablet 3 12/29/2023 Active Ondansetron HCl 4 MG Oral TabletIndications:Stan sea Take 1 Tablet by mouth every 8 hours as needed for Nausea. 30 Tablet 1 01/03/2024 Active Ajovy 225 MG/1.5ML Subcutaneous Solution Auto-injectorIndicati ons:Migraine with aura and without status migrainosus, not intractable Inject 225 mg under the skin Every Month. 4.5 mL 3 01/05/2024 Active Ezetimibe 10 MG Oral Tablet (Zetia) TAKE 1 TABLET EVERY EVENING 90 Tablet 1 02/01/2024 Active Rosuvastatin Calcium 40 MG Oral Tablet (Crestor)Indications: Dyslipidemia, goal LDL below 70 TAKE 1 TABLET DAILY WITH DINNER 90 Tablet 1 02/01/2024 Active Tiotropium [place]-Olodaterol 2.5-2.5 MCG/ACT Inhalation Aerosol Solution (Stiolto Respimat)Indications: Centrilobular emphysema (HCC) Inhale 2 Puffs by mouth in the morning. 12 g 3 01/31/2024 Active Methotrexate 2.5 MG Oral Tablet Take 6 Tablets by mouth once a week. 30 Tablet 3 03/29/2024 Active Folic Acid 1 MG Oral Tablet Take 1 Tablet by mouth in the morning. 30 Tablet 5 03/29/2024 Active Pantoprazole Sodium 40 MG Oral Tablet Delayed Release (Protonix)Indications :Gastroesophageal reflux disease with esophagitis, unspecified whether hemorrhage Take 1 Tablet by mouth in the morning. 90 Tablet 3 04/10/2024 Active Famotidine 20 MG Oral Tablet (Pepcid)Indications:G astroesophageal reflux disease without esophagitis Take 1 Tablet by mouth in the morning and 1 Tablet before bedtime. 90 Tablet 1 05/10/2024 Active Nurtec 75 MG Oral Tablet Disintegrating (Rimegepant Sulfate)Indications:D aily headache,Migraine with aura and without status migrainosus, not intractable 1 tab twice weekly as needed for headache 10 Tablet 5 05/10/2024 Active Nurtec 75 MG Oral Tablet Disintegrating (Rimegepant Sulfate) 1 tab at onset of headache no more than 1 in 24 hours. 15 Tablet 2 05/14/2024 Active FLUoxetine HCl 40 MG Oral Capsule (PROzac) Take 1 Capsule by mouth in the morning. 90 Capsule 1 06/06/2024 Active Amitriptyline HCl 10 MG Oral Tablet (Elavil) TAKE 1 TABLET BEFORE BEDTIME 90 Tablet 3 06/15/2024 Active clonazePAM 1 MG Oral Tablet (KlonoPIN)Indications :HILLARY (generalized anxiety disorder) TAKE ONE-HALF (1/2) TABLET IN THE EVENING. YOU MAY TAKE AN EXTRA ONE-HALF (1/2) TABLET DAILY NEEDED FOR ANXIETY 90 Tablet 1 06/26/2024 Active Empagliflozin 10 MG Oral Tablet (Jardiance)Indication s:Type 2 diabetes mellitus with hemoglobin A1c goal of less than 8.0% ([facility]) Take 1 Tablet by mouth [...] in [place]--upper/lower scope WNL--angie [address] Kauhsal Giang. 11/19/20 MRI C-Spine in [place]. DDD most C5-6. Mod central canal and mod left foraminal stenosis. Had C5-6 b/l NATAN 03/10 colon @[facility]--WNL angie 10y 03/07 MRI lumbar [...] (coronary artery disease) 07/07/2012 Overview: STENT 2007 [facility], [place] 2004 HTN, goal below 140/90 04/10/2012 Overview: Per HTN Protocol #27. Type 2 diabetes mellitus wit h hemoglobin A1c goal of less than 8.0% 08/06/2009 Overview: Per Lipid Taxonomy. 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 Saw pulm. FAMILY HX-GI MALIGNANCY 02/09/2005 documented as of this encounter (statuses as of 06/28/2024) Resolved Problems Problem Noted Date Diagnosed Date Resolved Date Coronary artery disease invo lving [place] coronary artery of [place] heart with unstable angina pectoris 09/05/2019 08/06/2021 [...] myocardial infarction 03/13/2009 Overview: Modified by Acute [place] Protocol #5. Major depressive disorder, r ecurrent [...] Yes 11/08/2014 documented as of this encounter Progress Notes * Lizz Inman LPN - 06/28/2024 8:41 AM EST PRE - ADMINISTRATION DOCUMENTATION Are you experiencing any cold symptoms or fever? No Have you had Guillain-[place] Syndrome (an illness that causes paralysis) within the last 6 weeks? No Have you had the flu shot in the past? YES Have you ever had a reaction to the flu shot? No Lizz Inman LPN, 06/28/2024 8:41 AM Immunization Administration Documentation Time Out Procedure Performed: Yes Patient Identified (Ask Name/Date of ): Yes Does the patient have a fever greater than 101 degrees today? No Patient allergic to latex? No VFC Stock: No Injection(s) verified: Yes, Injection Name: Fluzone HD Verified Side and Site: Yes Verified Shot(s) with Parent(s)/Patient: Yes documented in this encounter Plan of Treatment Upcoming Encounters Date Type Department Care Team (Late st Contact Info) Description 06/28/2024 9:30 AM EST Office Visit Cardiology, [address] [place] [address] Markell Brooks PA-C [address] [place] [address] History of Present Illness: Shelly Macdonald is a very pleasant 74-year-old 07/09/2024 7:30 AM EST Hospital Encounter OR [facility], Operating Room [facility] [address] [place] [phone] Bill Reilly MD [address] [place] [address] 07/09/2024 7:30 AM EST - 07/09/2024 8:18 AM EST Surgery OR [facility], Operating Room [facility] [address] [place] [phone] Bill Reilly MD [address] [place] [address] LEFT TRIGGER FINGER RELEASE 07/16/2024 10:30 AM EST Office Visit Orthopaedics [facility] [address] [place] [address] Bill Reilly MD [address] [place] [address] 07/24/2024 10:00 AM EST Office Visit Pharmacy, [facility] [address] [place] [address] [facility] [address] [place] [address] 08/02/2024 8:00 AM EST Telemedicine Psychiatry, [facility] [address] [place] [address] Pedro Luis Casas CRNP [address] [place] [address] 08/10/2024 8:00 AM EST Laboratory Laboratory, [facility] [address] [facility] [place] [address] 08/28/2024 9:00 AM EST Office Visit Rheumatology [address] [place] [address] Matthew Mari MD [address] [place] [address] [place] [address] 08/28/2024 9:45 AM EST Imaging [facility] [address] [facility] [place] [address] 08/28/2024 11:00 AM EST Office Visit Interventional Pain Center, [facility] 132 [facility] [address] Zi Ramirez DO [address] [facility] [place] [phone] 09/17/2024 11:30 AM EST Office Visit Hematology/Oncolog y [facility] [address] [place] [phone] Angela Renteria [address] [address] 10/08/2024 9:00 AM EST Office Visit Dermatology [facility] [place] [address] [place] [address] Justyna Krishnamurthy PA-C [address] [facility] [place] [address] 11/19/2024 9:20 AM EDT Office Visit Hepatology, [facility] [address] [facility] [place] [address] Lali Chodwhury DO [address] [place] [address] 11/20/2024 7:00 AM EDT Office Visit Neurology [facility] [address] [place] [address] Kendra Montano PA-C [facility] [place] [address] 05/31/2025 9:20 AM EDT Office Visit Family Practice [facility] [place] [address] Brent Smith MD [address] [place] [address] Scheduled Procedures Name Priority Associated Diagnoses Date/Ti [...] Additional history exists CKD PHOS USE SMARTSET 01161 08/05/202407/22, 08/09/2022, 08/06/2021, Additional history exists Diabetic Foot Exam 08/05/2024 08/05/2023, 1 09/18/2021, 09/04/2021, Additional history exists GFR 11/07/2024 05/10/2024, 06/0 02/2024, 10/25/2023, Additional history exists HbA1c 11/07/2024 05/10/2024, 06/0 02/2024, 10/25/2023, Additional history exists O2 ASSESSMENT COMPLETED IN PAST YEAR FOR COPD 11/30/2024 12/01/2023 B-12 12/14/2024 12/15/2023, 05/22, 11/12/2022, Additional history exists Adult Wellness Visit 03/27/2025 03/27/2024, 10/21/19 22 CKD HGB USE SMARTSET 90859 05/10/202505/10, 05/10/2024, 03/12/2024, Additional history exists Depression Monitoring 05/10/2025 05/10/2024 Colonoscopy 11/30/2028 12/01/2023, 11/20, 12/16/2020, Additional history [...] as of this encounter Visit Diagnoses Diagnosis Dupuytren's disease of palm of left hand Trigger middle finger of left hand Trigger finger (acquired) Trigger index finger of left hand Trigger finger (acquired) Need for prophylactic vaccination and inoculation against influenza- Primary Dupuytren's disease of palm of left hand Trigger middle finger of left hand Trigger finger (acquired) Trigger index finger of left hand Trigger finger (acquired) documented in this encounter Advance Directives Documents on File Type Date Recorded 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 Care Teams Certified Credit Counselor Relationship Specialty Start Date End Date Brent Smith MD [address] [place] [address] PCP - General Family Medicine 04/20/23 documented as of this encounter
--- OUTSIDE RECORDS SUMMARY | 2024-08-09 14:38 | External Medical Summary | Summary of Care ---
Author Name Unknown Organization [facility] Address [address] [facility] [address] Phone [phone] Care Team Providers Care Career Guidance Technician Name Role Phone Brent Smith MD Primary Care Provider + Reason for Visit * Reason Comments Outpatient Testing Encounter Details Date Type Department Care Team (Late st Contact Info) Description 06/28/2024 10:40 AM EST Laboratory Laboratory, [facility] 132 [place] [phone] [facility] [address] [place] [address] Chest pain; MTZ (dyspnea on exertion); Palpitations; Unspecified disturbances of skin sensation; Dyslipidemia, goal LDL below 70 Allergies Active [...] 90 Tablet 3 11/01/2022 Active Nystatin-Triamcinolo [place] 925636-8.1 UNIT/GM-% External Ointment (Mycolog)Indications :Dermatitis Apply topically to affected area 3 times a day. Apply to affected area 15 g 1 04/18/2023 Active Furosemide 20 MG Oral Tablet (Lasix)Indications:H TN, goal below 140/90,Coronary artery disease involving [place] heart without angina pectoris, unspecified vessel or [...] MEALS 180 Tablet 3 08/29/2023 Active Pen [place] 32G X 4 MMIndications:Type 2 diabetes mellitus [...] DINNER 90 Tablet 1 02/01/2024 Active Tiotropium [place]-Olodaterol 2.5-2.5 MCG/ACT Inhalation Aerosol Solution (Stiolto Respimat)Indications [...] hemoglobin A1c goal of less than 8.0% ([facility]) Take 1 Tablet by mouth [...] stenosis. Had C5-6 b/l NATAN 03/10 colon @[facility]--WNL angie 10y 03/07 MRI lumbar some [...] (coronary artery disease) 07/07/2012 Overview: STENT 2007 [facility], [place] 2004 HTN, goal below 140/90 04/10/2012 Overview: Per HTN Protocol #27. Type 2 diabetes mellitus wit h hemoglobin A1c goal of less than 8.0% 08/06/2009 Overview: Per Lipid Taxonomy. 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 Saw pulm. FAMILY HX-GI MALIGNANCY 02/09/2005 documented as of this encounter (statuses as of 06/28/2024) Resolved Problems Problem Noted Date Diagnosed Date Resolved Date Coronary artery disease invo lving [place] coronary artery of [place] heart with unstable angina pectoris 09/05/2019 08/06/2021 [...] myocardial infarction 03/13/2009 Overview: Modified by Acute [place] Protocol #5. Major depressive disorder, r ecurrent [...] No 05/18/2023 Does the household have a [facility] source of income? (Household - for ages [...] Yes 11/08/2014 documented as of this encounter Plan of Treatment Upcoming Encounters Date Type Department Care Team (Late st Contact Info) Description 07/09/2024 7:30 AM EST Hospital Encounter OR [facility], Operating Room [facility] [address] [place] [phone] Bill Reilly MD [address] [place] [address] 07/09/2024 7:30 AM EST - 07/09/2024 8:18 AM EST Surgery OR [facility], Operating Room [facility] [address] [place] [address] Bill Reilly MD [address] [place] [address] LEFT TRIGGER FINGER RELEASE 07/16/2024 10:30 AM EST Office Visit Orthopaedics [facility] [address] [place] [address] Bill Reilly MD [address] [place] [address] 07/18/2024 10:00 AM EST Cardiac Studies Cardiac Studies, [facility] [address] [place] [address] 07/24/2024 10:00 AM EST Office Visit Pharmacy, [facility] [address] [place] [address] [facility] [address] [place] [address] 08/02/2024 8:00 AM EST Telemedicine Psychiatry, [facility] [address] [place] [address] Pedro Luis Casas CRNP [address] [place] [address] 08/10/2024 8:00 AM EST Laboratory Laboratory, [facility] 132 [facility] [place] [phone] [facility] [address] [place] [address] 08/28/2024 9:00 AM EST Office Visit Rheumatology [address] [place] [address] Matthew Mari MD [address] [place] [address] [place] [address] 08/28/2024 9:45 AM EST Imaging Radiology [facility] 1st [facility] 132 [facility] [place] [address] 08/28/2024 11:00 AM EST Office Visit Interventional Pain Center, [facility] 132 [facility] [place] [address] Zi Ramirez, 132 [facility] [place] [phone] 09/17/2024 11:30 AM EST Office Visit Hematology/Oncolog y [facility] [address] [place], [place] [phone] Angela Renteria, JUAN MANUEL [address] [place] [address] [place] [address] 10/08/2024 9:00 AM EST Office Visit Dermatology [facility] [place] [address] [place] [address] Justyna Krishnamurthy PA-C [address] [facility] [place] [address] 11/19/2024 9:20 AM EDT Office Visit Hepatology, [facility] [address] [place] [address] Lali Chowdhury DO 132 [facility] [place] [address] 11/20/2024 7:00 AM EDT Office Visit Neurology [facility] [address] [place] [address] Kendra Montano PA-C [facility] [place] [address] 05/31/2025 9:20 AM EDT Office Visit Family Practice [facility] [address] [place] [address] Brent Smith MD 132 [facility] [place] [address] Pending Results Name Type Priority Associated Diagnoses Date /Time CBC Lab Routine Chest pain MTZ (dyspnea on exertion) 06/28/2024 10:27 AM EST TSH WITH FREE T4 IF INDICATED Lab Routine Palpitations 06/28/2024 10:27 AM EST MAGNESIUM Lab Routine Palpitations 06/28/2024 10:27 AM EST VITAMIN B12 Lab Routine MTZ (dyspnea on exertion) Unspecified disturbances of skin sensation 06/28/2024 10:27 AM EST LDL CHOLESTEROL (DIRECT MEASURE) Lab Routine Dyslipidemia, goal LDL below 70 06/28/2024 10:27 AM EST Scheduled Procedures Name Priority Associated Diagnoses Date/Ti [...] Additional history exists CKD PHOS USE SMARTSET 13088 08/05/202407/22, 08/09/2022, 08/06/2021, Additional history exists Diabetic [...] 03/27/2024, 10/21/19 22 CKD HGB USE SMARTSET 36122 05/10/202505/10, 05/10/2024, 03/12/2024, Additional history exists Depression [...] of left hand Trigger finger (acquired) Chest pain Chest pain, unspecified MTZ (dyspnea on exertion) Other dyspnea and respiratory abnormality Palpitations Unspecified disturbances of skin sensation Dyslipidemia, goal LDL below 70 Other and unspecified hyperlipidemia Dupuytren's disease of palm of left hand Trigger middle finger of left hand Trigger finger (acquired) Trigger index finger of left hand Trigger finger (acquired) documented in this encounter Advance Directives Documents on File Type Date Recorded Patient Process Artist 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 Care Teams Career Guidance Technician Relationship Specialty Start Date End Date Brent Smith MD [address] [place] [address] PCP - General Family Medicine 04/20/23 documented as of this encounter
--- OUTSIDE RECORDS SUMMARY | 2024-08-09 14:38 | External Medical Summary ---
Author Name Unknown Address Unknown Organization [id number]:LABORATORY [facility] [address] [place] [address] Laboratory Report Ordering Provider Test Date Status MILAGRO AVILEZ 06/28/2024 10:27:34 Final Observation Date Value Abnormality Reference (Units ) Status WBC, Total 06/28/2024 10:27:34 8.68 4.00-10.8 0 (K/uL) Final RBC 06/28/2024 10:27:34 3.71 3.85-5.15 (M/uL) Final Hemoglobin 06/28/2024 10:27:34 12.2 12.0-15.3 (g/dL) Final HCT 06/28/2024 10:27:34 37.7 36.0-45.2 (%) Final MCV 06/28/2024 10:27:34 101.6 81.5-97.5 (fL) Final MCH 06/28/2024 10:27:34 32.9 27.0-34.0 (pg) Final MCHC 06/28/2024 10:27:34 32.4 32.0-36.0 (g/dL) Final RDW 06/28/2024 10:27:34 15.0 11.5-15.5 (%) Final Platelets 06/28/2024 10:27:34 199 140-400 (K /uL) Final MPV 06/28/2024 10:27:34 10.6 6.6-11.1 ( fL) Final [facility] [address] [place] [address]
--- OUTSIDE RECORDS SUMMARY | 2024-08-09 14:38 | External Medical Summary ---
Author Name Unknown Address Unknown Organization [id number]:LABORATORY [facility] - [address] [place] [address] Laboratory Report Ordering Provider Test Date Status MILAGRO AVILEZ 06/28/2024 10:27:34 Final Observation Date Value Abnormality Reference (Units ) Status TSH 06/28/2024 10:27:34 2.76 0.27-4.20 (uIU/mL) Final Performing Location LABORATORY C - [address] [place] [address]
--- OUTSIDE RECORDS SUMMARY | 2024-08-09 14:38 | External Medical Summary ---
Author Name Unknown Address Unknown Organization [id number]:[facility] [place] [address] [place] [address] Laboratory Report Ordering Provider Test Date Status MILAGRO AVILEZ 06/28/2024 10:27:34 Final Observation Date Value Abnormality Reference (Units ) Status Vitamin B12 06/28/2024 10:27:34 [phone] (pg/mL) Final Performing Location [facility] [place] [facility] [address] [facility] [place] [address]
--- OUTSIDE RECORDS SUMMARY | 2024-08-09 14:38 | External Medical Summary ---
Author Name Unknown Address Unknown Organization [id number]:[facility] [place] [address] [place] [address] Laboratory Report Ordering Provider Test Date Status MILAGRO AVILEZ 06/28/2024 10:27:34 Final Observation Date Value Abnormality Reference (Units ) Status LDL, (direct) 06/28/2024 10:27:34 38 <=129 (mg/dL) Final LDL Cholesterol Reference Ra nges (mg/dL):
<70 Target level for high risk ASCVD patient
<100 Optimal for general population
100-129 Near optimal for general population
130-159 Borderline high
160-189 High
>=190 Very high Performing Location LABORATORY [facility] - [address] [place] [address]
--- OUTSIDE RECORDS SUMMARY | 2024-08-09 14:38 | External Medical Summary ---
Author Name Unknown Address Unknown Organization [id number]:LABORATORY [facility] - [address] [place] [address] Laboratory Report Ordering Provider Test Date Status MILAGRO AVILEZ 06/28/2024 10:27:34 Final Observation Date Value Abnormality Reference (Units ) Status Magnesium 06/28/2024 10:27:34 1.8 1.5-2.6 (m g/dL) Final Performing Location LABORATORY [facility] - [address] [place] [address]
--- OUTSIDE RECORDS SUMMARY | 2024-08-09 14:38 | External Medical Summary | Summary of Care ---
Author Name Unknown Organization [facility] Address [address] [place] [address] Phone [phone] Care Team Providers Care Configuration Management Consultant Name Role Phone Brent Smith MD Primary Care Provider + Reason for Visit * Reason Onset Date Comments Appointment 06/28/2024 Encounter Details Date Type Department Care Team (Late st Contact Info) Description 06/28/2024 Telephone Cardiology, [facility] [address] [place] [id number] Markell Brooks, PAEddyC [address] [place] [phone] Appointment Allergies Active Allergy Reactions Criticality Noted [...] 90 Tablet 3 11/01/2022 Active Nystatin-Triamcinolo ne 222564-2.1 UNIT/GM-% External Ointment (Mycolog)Indications :Dermatitis Apply topically to affected area 3 times a day. Apply to affected area 15 g 1 04/18/2023 Active Furosemide 20 MG Oral Tablet (Lasix)Indications:H TN, goal below 140/90,Coronary artery disease involving kiana heart without angina pectoris, unspecified vessel or [...] MEALS 180 Tablet 3 08/29/2023 Active Pen [place] 32G X 4 MMIndications:Type 2 diabetes mellitus [...] DINNER 90 Tablet 1 02/01/2024 Active Tiotropium [place]-Olodaterol 2.5-2.5 MCG/ACT Inhalation Aerosol Solution (Stiolto Respimat)Indications [...] done. 11/11 Upper endoscopy ok. 12/10 in [place]--upper/lower scope WNL--angie [address] Kaushal Giang. 11/19/20 MRI C-Spine in [place]. DDD most C5-6. Mod central canal and mod left foraminal stenosis. Had C5-6 b/l NATAN 03/10 colon [facility]--WNL angie 10y 03/07 MRI lumbar some [...] (coronary artery disease) 07/07/2012 Overview: STENT 2007 [facility], [place] 2004 HTN, goal below 140/90 04/10/2012 Overview: Per HTN Protocol #27. Type 2 diabetes mellitus wit h hemoglobin A1c goal of less than 8.0% 08/06/2009 Overview: Per Lipid Taxonomy. 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 Saw pulm. FAMILY HX-GI MALIGNANCY 02/09/2005 documented as of this encounter (statuses as of 06/28/2024) Resolved Problems Problem Noted Date Diagnosed Date Resolved Date Coronary artery disease invo lving kiana coronary artery of kiana heart with unstable angina pectoris 09/05/2019 08/06/2021 [...] myocardial infarction 03/13/2009 Overview: Modified by Acute [place] Protocol #5. Major depressive disorder, r ecurrent episode, moderate 06/13/2013 documented as of this encounter (statuses as of 06/28/2024) Immunizations Name Administration Dates Next Due COVID-19 mRNA, LNP-s, No Pre serve, 2-Dose Series (Moderna) 10/27/2020,09/29/2020 COVID-19, LNP-s, No Preserve , Klaus-sucrose, Ages 12+ (Pfizer) 03/17/2022 COVID-19, MRNA-LNP, 24-25, P R, 30MCG/0.3ML, IM, 12YRS AND ABOVE ([employer]-MyFuelUpirnatSynedgen) 05/29/2024 COVID-19, MRNA-LNP, PF, 30 M CG/0.3 mL, 12 YRS AND ABOVE, IM ([employer]-MyFuelUpirnatSynedgen) 06/07/2023 COVID-19, mRNA, LNP-s, PF, B ooster, 100mcg/0.5mg (Moderna) 07/03/2021 Covid-19, Mrna, Lnp-s, Pf, B ivalent, 30 Mcg, IM, 12 yrs and above ([employer]) 08/18/2022 H1N1 2009 Influenza, IM 09/05/2009 Hepatitis [...] Tobacco: Every Day Cigarettes 0.5 59.8 Started: 1964 Passive Smoke Exposure: Past Smokeless Tobacco: Never [...] IMG SPECT MULT STUDIES WITH PHARM INTERV [43498.02] (Order [id number] documented in this encounter Plan of Treatment Upcoming Encounters Date Type Department Care Team (Late st Contact Info) Description 07/09/2024 7:30 AM EST Hospital Encounter OR [facility], Operating Room [facility] [address] [place] [phone] Bill Reilly MD [address] [place] [address] 07/09/2024 7:30 AM EST - 07/09/2024 8:18 AM EST Surgery OR [facility], Operating Room [facility] [address] [place] [phone] Bill Reilly MD [address] [place] [address] LEFT TRIGGER FINGER RELEASE 07/16/2024 10:30 AM EST Office Visit Orthopaedics [facility] [address] [place] [address] Bill Reilly MD [address] [place] [address] 07/18/2024 10:00 AM EST Cardiac Studies Cardiac Studies, [facility] [address] [facility] [place] [address] 07/24/2024 10:00 AM EST Office Visit Pharmacy, [facility] [address] [facility] [place] [address] [facility] [address] [facility] [place] [address] 08/02/2024 8:00 AM EST Telemedicine Psychiatry, [facility] [address] [place] [address] Pedro Luis Casas CRNP [address] [place] [address] 08/10/2024 8:00 AM EST Laboratory Laboratory, [facility] [address] [facility] [place] [phone] [facility] [address] [facility] [place] [address] 08/28/2024 9:00 AM EST Office Visit Rheumatology [address] [place], [place] [address] Matthew Mari MD [address] [place] [address] [place] [address] 08/28/2024 9:45 AM EST Imaging Radiology [facility] 1st Floor, [place] [address] [facility] [place] [address] 08/28/2024 11:00 AM EST Office Visit Interventional Pain Center, [facility] [address] [facility] [place] [address] Zi Ramirez DO [address] [place] [phone] 09/17/2024 11:30 AM EST Office Visit Hematology/Oncolog y [facility] [address] [place] [phone] Angela Renteria, JUAN MANUEL [address] [place] [address] 10/08/2024 9:00 AM EST Office Visit Dermatology [facility] [place] [address] [place] [place] [address] Justyna Krishnamurthy PA-C [address] [facility] [address] 11/19/2024 9:20 AM EDT Office Visit Hepatology, [facility] [place] [address] Lali Chowdhury DO [address] [place] [address] 11/20/2024 7:00 AM EDT Office Visit Neurology [facility] [address] [facility] [place] [address] Kendra Montano PA-C [address] [facility] [place] [address] 05/31/2025 9:20 AM EDT Office Visit Family Practice [facility] [place] [address] Brent Smith MD [address] [place] [address] Scheduled Procedures Name Priority Associated Diagnoses Date/Ti [...] Health Maintenance Due Date Last Done Comments Jeanette 1995 Sigmoidoscopy 1995 Fecal Occult Blood Test [...] Additional history exists CKD PHOS USE SMARTSET 13616 08/05/202407/22, 08/09/2022, 08/06/2021, Additional history exists Diabetic [...] Monitoring 05/10/2025 05/10/2024 CKD HGB USE SMARTSET 28493 06/28/202506/28, 05/10/2024, 05/10/2024, Additional history exists Colonoscopy [...] Documents on File Type Date Recorded 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 Care Teams Configuration Management Consultant Relationship Specialty Start Date End Date Brent Smith MD [address] [place] [address] PCP - General Family Medicine 04/20/23 documented as of this encounter
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
--- OUTSIDE RECORDS SUMMARY | 2024-08-09 14:39 | External Medical Summary | Summary of Care ---
Author Name Unknown Organization [facility] Address [address] [facility] [place] [address] Phone [phone] Care Team Providers Care Soa Architect Name Role Phone Brent Smith MD Primary Care Provider + Reason for Visit * Reason Onset Date Comments Medication Refill 06/15/2024 Encounter Details Date Type Department Care Team (Late st Contact Info) Description 06/15/2024 Refill Psychiatry, [facility] [address] [place] [address] Kirit Casas CRNP [address] [place] [address] Allergies Active Allergy Reactions Criticality Noted Date [...] as of this encounter (statuses as of 06/15/2024) Medications Medication Sig Dispensed Refills Start Date [...] with dinner. 90 Tablet 3 11/01/2022 Active Nystatin-Triamcinol one 464353-3.1 UNIT/GM-% External Ointment (Mycolog)Indication s:Dermatitis Apply topically to affected area 3 times a day. Apply to affected area 15 g 1 04/18/2023 Active Furosemide 20 MG Oral Tablet (Lasix)Indications: HTN, goal below 140/90,Coronary artery disease involving napaimute heart without angina pectoris, unspecified vessel or lesion type,Encounter for monitoring diuretic therapy,Old myocardial infarct Take 1 Tablet by mouth in the morning. 90 Tablet 3 05/13/2023 Active metFORMIN HCl 1000 MG Oral Tablet (Glucophage)Indicat ions:Type 2 diabetes mellitus with hemoglobin A1c goal of less than 8.0% (HCC) TAKE 1 TABLET TWICE A DAY WITH MORNING AND EVENING MEALS 180 Tablet 3 08/29/2023 Active Pen [place] 32G X 4 MMIndications:Type 2 diabetes mellitus with hemoglobin A1c goal of less than 8.0% (HCC) Use as directed. To administer insulin. 100 Each 3 08/29/2023 Active Pioglitazone HCl 30 MG Oral Tablet (Actos) Take 1 Tablet by mouth in the morning. 90 Tablet 3 08/29/2023 Active FreeStyle LancetsIndications: Type 2 diabetes mellitus with hemoglobin A1c goal of less than 8.0% (HCC) Use to test blood sugar twice daily or as directed E11.9 180 Each 3 09/08/2023 Active FreeStyle Lite Test In Vitro Strip (Glucose Blood)Indications:T ype 2 diabetes mellitus with hemoglobin A1c [...] 12/07/2023 Active clonazePAM 1 MG Oral Tablet (KlonoPIN)Indicatio ns:HILLARY (generalized anxiety disorder) 1/2 tab in evening by mouth. You may take an extra 1/2 tab daily as needed for anxiety. 135 Tablet 1 12/29/2023 Active Chlorzoxazone 500 MG Oral TabletIndications:L umbar radiculopathy TAKE 1 TABLET AT BEDTIME AND UP TO 3 ADDITIONAL TABLETS DURING THE DAY NEEDED FOR NECK AND HEAD PAIN 270 Tablet 3 12/29/2023 Active Ondansetron HCl 4 MG Oral TabletIndications:N ausea Take 1 Tablet by mouth every 8 hours as needed for Nausea. 30 Tablet 1 01/03/2024 Active Ajovy 225 MG/1.5ML Subcutaneous Solution Auto-injectorIndica tions:Migraine with aura and without status migrainosus, not intractable Inject 225 mg under the skin Every Month. 4.5 mL 3 01/05/2024 Active Ezetimibe 10 MG Oral Tablet (Zetia) TAKE 1 TABLET EVERY EVENING 90 Tablet 1 02/01/2024 Active Rosuvastatin Calcium 40 MG Oral Tablet (Crestor)Indication s:Dyslipidemia, goal LDL below 70 TAKE 1 TABLET DAILY WITH DINNER 90 Tablet 1 02/01/2024 Active Tiotropium [place]-Olodaterol 2.5-2.5 MCG/ACT Inhalation Aerosol Solution (Stiolto Respimat)Indication s:Centrilobular emphysema (HCC) Inhale 2 Puffs by mouth in the morning. 12 g 3 01/31/2024 Active Methotrexate 2.5 MG Oral Tablet Take 6 Tablets by mouth once a week. 30 Tablet 3 03/29/2024 Active Folic Acid 1 MG Oral Tablet Take 1 Tablet by mouth in the morning. 30 Tablet 5 03/29/2024 Active Pantoprazole Sodium 40 MG Oral Tablet Delayed Release (Protonix)Indicatio ns:Gastroesophageal reflux disease with esophagitis, unspecified whether hemorrhage Take 1 Tablet by mouth in the morning. 90 Tablet 3 04/10/2024 Active Famotidine 20 MG Oral Tablet (Pepcid)Indications :Gastroesophageal reflux disease without esophagitis Take 1 Tablet by mouth in the morning and 1 Tablet before bedtime. 90 Tablet 1 05/10/2024 Active Nurtec 75 MG Oral Tablet Disintegrating (Rimegepant Sulfate)Indications :Daily headache,Migraine with aura and without status migrainosus, [...] BEFORE BEDTIME 90 Tablet 3 06/15/2024 Active Amitriptyline HCl 10 MG Oral Tablet (Elavil) TAKE 1 TABLET BEFORE BEDTIME 90 Tablet 3 04/01/2023 Discontinue d(Refill) documented as of this encounter (statuses as of 06/15/2024) Active Problems Problem Noted Date Diagnosed Date [...] stenosis. Had C5-6 b/l NATAN 03/10 colon @[facility]--WNL angie 10y 03/07 MRI lumbar [...] CAD (coronary artery disease) 07/07/2012 Overview: STENT 2008 [facility] [place] 2004 HTN, goal below 140/90 04/10/2012 Overview: Per HTN Protocol #27. ADVANCE DIRECTIVE INFORMATION 03/19/2010 Overview: Information offered-patient declined. Type 2 diabetes mellitus wit h hemoglobin A1c goal of less than 8.0% 08/06/2009 Overview: Per Lipid Taxonomy. ICD-10 update of inactive term Old myocardial infarct 03/13/2009 Overview: INFEROLATERAL [place] 2003 Chronic rhinitis 10/07/2008 Gastroparesis 04/27/2007 Sarcoidosis 05/12/2005 Overview: DX 2004 EGD showing nonnecrotizing granuloma stomach + wt loss. Saw pulm. FAMILY HX-GI MALIGNANCY 02/09/2005 documented as of this encounter (statuses as of 06/15/2024) Resolved Problems Problem Noted Date Diagnosed Date Resolved Date Coronary artery disease invo lving napaimute coronary artery of napaimute heart with unstable angina pectoris 09/05/2019 08/06/2021 [...] myocardial infarction 03/13/2009 Overview: Modified by Acute [place] Protocol #5. Major depressive disorder, r ecurrent episode, moderate 06/13/2013 documented as of this encounter (statuses as of 06/15/2024) Immunizations Name Administration Dates Next Due COVID-19 [...] Vac cine, Unspecified Formulation 06/02/2019,04/29/2018,06/01/2006 Seasonal Influenza, PF, 6 M & above, [...] encounter Miscellaneous Notes * Telephone Encounter - Kirit Casas CRNP - 06/15/2024 4:23 PM EDTSigned Prescriptions: Disp Refills Amitriptyline HCl 10 MG Oral Tablet (Elavi*90 Tab*3 Sig: TAKE 1 TABLET BEFORE BEDTIME Authorizing Provider: KIRIT CASAS * Telephone Encounter - Kirit Casas CRNP - 06/15/2024 4:23 PM EDTSigned Prescriptions: Disp Refills Amitriptyline HCl 10 MG Oral Tablet (Elavi*90 Tab*3 Sig: TAKE 1 TABLET BEFORE BEDTIME Authorizing Provider: KIRIT CASAS * Telephone Encounter - Nelda Butterfield LPN - 06/15/2024 10:49 AM EDT Pharmacy requesting refill on Elavil. Medication was last filled on 04/01/23 with 3 refills. Patientlast seen on 06/06/24 with return appointment scheduled for 08/02/24. Patient had 0 cancelled appointments and 0 NO SHOW appointments. documented in this encounter Plan of Treatment Upcoming Encounters Date Type Department Care Team (Late st Contact Info) Description 06/28/2024 8:40 AM EST Immunization Ancillary [facility] [address] [place] [address] [facility] [address] [place] [address] 06/28/2024 9:30 AM EST Office Visit Cardiology, [facility] [address] [place] [address] Markell Brooks PA-C [address] [place] [address] 07/09/2024 7:30 AM EST Hospital Encounter OR [facility], Operating Room [facility] [address] [place] [phone] Bill Reilly MD [address] [place] [address] 07/09/2024 7:30 AM EST - 07/09/2024 8:18 AM EST Surgery OR [facility], Operating Room [facility] [address] [place] [phone] Bill Reilly MD [address] [place] [address] LEFT TRIGGER FINGER RELEASE 07/16/2024 10:30 AM EST Office Visit Orthopaedics [facility] [address] [place] [address] Bill Reilly MD [address] [place] [facility] [place] [address] 07/24/2024 10:00 AM EST Office Visit Pharmacy, [facility] [address] [place] [address] [facility] [address] [place] [address] 08/02/2024 8:00 AM EST Telemedicine Psychiatry, [facility] [address] [facility] [address] Kirit Casas CRNP [address] [place] [address] 08/10/2024 8:00 AM EST Laboratory Laboratory, [facility] [address] [facility] [address] [facility] Lab [facility] [address] [place] [address] 08/28/2024 9:00 AM EST Office Visit Rheumatology [address] [place] [address] Matthew Mari MD [address] [place] [address], [place] [address] 08/28/2024 9:45 AM EST Imaging [facility] [address] [facility] [place] [address] 08/28/2024 11:00 AM EST Office Visit Interventional Pain Center, [facility] [address] [place] [address] Zi Ramirez DO [address] [place] [phone] 09/17/2024 11:30 AM EST Office Visit Hematology/Oncolog y [facility] [address] [place], [place] [phone] Angela Renteria, CAMERA CONTROL OPERATOR [address] [facility] [place] [address] 10/08/2024 9:00 AM EST Office Visit Dermatology [facility] [place] [address] [place] [address] Justyna Krishnamurthy PA-C [address] [place] [address] 11/19/2024 9:20 AM EDT Office Visit Hepatology, [facility] [address] [place] [address] Lali Chowdhury DO [address] [place] [address] 11/20/2024 7:00 AM EDT Office Visit Neurology [facility] [address] [place] [address] Kendra Montano PA-C [facility] [place] [address] 05/31/2025 9:20 AM EDT Office Visit Family Practice [facility] [address] [place] [address] Brent Smith MD [address] [place] [address] Scheduled Procedures Name Priority Associated Diagnoses Date/Ti [...] Additional history exists CKD PHOS USE SMARTSET 38520 08/05/202407/22, 08/09/2022, 08/06/2021, Additional history exists Diabetic [...] 03/27/2024, 10/21/19 22 CKD HGB USE SMARTSET 63369 05/10/202505/10, 05/10/2024, 03/12/2024, Additional history exists Depression [...] Documents on File Type Date Recorded 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 Care Teams Soa Architect Relationship Specialty Start Date End Date Brent Smith MD [address] [place] [address] PCP - General Family Medicine 04/20/23 documented as of this encounter
--- OUTSIDE RECORDS SUMMARY | 2024-08-09 14:39 | External Medical Summary | Summary of Care ---
Author Name Unknown Organization [facility] Address [address] [facility] [place] [address] Phone [phone] Care Team Providers Care Clinical Nursing Professor Name Role Phone Brent Smith MD Primary Care Provider + Reason for Visit * Reason Comments Medication Management Encounter Details Date Type Department Care Team (Late st Contact Info) Description 06/06/2024 8:00 AM EDT [facility] [address] [place] [address] Pedro Luis Casas CRNP [address] [place] [address] Major depressive disorder, recurrent severe without psychotic [...] as of this encounter (statuses as of 06/06/2024) Medications Medication Sig Dispensed Refills Start Date [...] BEFORE BEDTIME 90 Tablet 3 04/01/2023 Active Nystatin-Triamcinol one 196608-0.1 UNIT/GM-% External Ointment (Mycolog)Indication s:Dermatitis Apply topically to affected area 3 times a day. Apply to affected area 15 g 1 04/18/2023 Active Furosemide 20 MG Oral Tablet (Lasix)Indications: HTN, goal below 140/90,Coronary artery disease involving hughes heart without angina pectoris, unspecified vessel or [...] MEALS 180 Tablet 3 08/29/2023 Active Pen [place] 32G X 4 MMIndications:Type 2 diabetes mellitus [...] hemoglobin A1c goal of less than 8.0% ([facility]) Use to test blood sugar [...] DINNER 90 Tablet 1 02/01/2024 Active Tiotropium [place]-Olodaterol 2.5-2.5 MCG/ACT Inhalation Aerosol Solution (Stiolto Respimat)Indication s:Centrilobular emphysema ([facility]) Inhale 2 Puffs by mouth in the [...] the morning. 90 Capsule 1 06/06/2024 Active FLUoxetine HCl 40 MG Oral Capsule (PROzac) Take 1 Capsule by mouth in the morning. 90 Capsule 1 03/07/2024 Discontinue d(Refill) documented as of this encounter (statuses as of 06/06/2024) Active Problems Problem Noted Date Diagnosed Date [...] done. 11/11 Upper endoscopy ok. 12/10 in [place]--upper/lower scope WNL--angie [address] Kaushal Giang. 11/19/20 MRI C-Spine in [place]. DDD most C5-6. Mod central canal and mod left foraminal stenosis. Had C5-6 b/l NATAN 03/10 colon @[facility]--WNL angie 10y 03/07 MRI lumbar some arthritis [...] (coronary artery disease) 07/07/2012 Overview: STENT 2008 [facility], [place] 2004 HTN, goal below 140/90 04/10/2012 Overview: Per HTN Protocol #27. ADVANCE DIRECTIVE INFORMATION 03/19/2010 Overview: Information offered-patient declined. Type 2 diabetes mellitus wit h hemoglobin A1c goal of less than 8.0% 08/06/2009 Overview: Per Lipid Taxonomy. ICD-10 update of inactive term Old myocardial infarct 03/13/2009 Overview: INFEROLATERAL [place] 2003 Chronic rhinitis 10/07/2008 Gastroparesis 04/27/2007 Sarcoidosis 05/12/2005 Overview: DX 2004 EGD showing nonnecrotizing granuloma stomach + wt loss. Saw pulm. FAMILY HX-GI MALIGNANCY 02/09/2005 documented as of this encounter (statuses as of 06/06/2024) Resolved Problems Problem Noted Date Diagnosed Date Resolved Date Coronary artery disease invo lving hughes coronary artery of hughes heart with unstable angina pectoris 09/05/2019 08/06/2021 [...] myocardial infarction 03/13/2009 Overview: Modified by Acute [place] Protocol #5. Major depressive disorder, r ecurrent episode, moderate 06/13/2013 documented as of this encounter (statuses as of 06/06/2024) Immunizations Name Administration Dates Next Due COVID-19 [...] 30 Mcg, IM, 12 yrs and above ([place] [facility]) 08/18/2022 H1N1 2009 Influenza, IM 09/05/2009 Hepatitis [...] as of this encounter Progress Notes * Pedro Luis Casas CRNP - 06/06/2024 8:02 AM EDT OUTPATIENT BEHAVIORAL HEALTH RETURN VISIT NOTE Psychiatry, [facility] [address] [facility] [place] [address] 06/06/2024 Shelly Macdonald Patient location: HOME. I was not in a hospital or clinic location. After connecting through telephone, patient was verified with two unique identifiers. 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 Methods to assure confidentiality were taken. Patient acknowledged consent and understanding of privacy and security of the Telemedicine visit. The patient agreed to participate. Clinical Tools - HILLARY-7 | PHQ-9 | AIMS | Carlos Vu Safety Plan :[id number]} Risk Assessment: Completed and No acute safety concerns, chronic passive SI, denies plan/intent Interval History: Shelly is a 73 year old female presenting today for a follow- up appointment. Pt reports "my best friend is dying.. she was just 2 days in the hospital with heart failure, and they just sent her home to ." She has been visiting with her daily, "you never know when is going to be the last time. It's just part of life I'm not ready for right now, but who is?" She had one ofher providers joke about her age recently, which was inappropriate, she does get the lingering sense that many of her providers don't take her issues seriously because of her age and mortality. Support provided. She is to have a fasciectomy done on her hand, and is waiting on this to be scheduled. "It's never a calm, easy day." Her home life is "pretty good. Cam and I are.. kind of gathering around the wans.. we're more aware of life and .. so we're getting along pretty good. Which is a help." She doesn't wake feeling rested, and experiences bizarre dreams. "I'm sure the emotional stuff I have going on isn't helping." Appetite is poor. She continues to experience frequent headaches, and is unsure what to attribute this to. "I still get as tired, and still have as many headaches" despite anemia metrics improving. Cough and allergiesare improved. "Every once in a while something good does happen." Medication Side-Effects: denies Patient's last PHQ-9 score (Adult) - 0 and Patient's last HILLARY-7 score - Total:16 Substance Abuse History: Cigarettes over past >40 [...] Disorder Agents, Beta Blockers, Antihypertensive) Medication Sig FLUoxetine HCl 40 MG Oral Capsule (PROzac) Take 1 Capsule by mouth in the morning. clonazePAM 1 MG Oral Tablet (KlonoPIN) 1/2 tab in evening by mouth. You may take an extra 1/2 tab daily as needed for anxiety. Metoprolol Succinate ER 100 MG Oral Tablet Extended Release 24 Hour (toPROL XL) TAKE 1 TABLET IN THE MORNING AND 1 TABLET BEFORE BEDTIME Amitriptyline HCl 10 MG Oral Tablet (Elavil) TAKE 1 TABLET BEFORE BEDTIME Encourage pt re-engage [...] with questions. Time Spent on Visit total: 18 minutes - including preparing to see the patient, reviewing history, performing evaluation, counseling/educating patient, ordering medications/tests, documenting clinical information. Pedro Luis Casas, MSN, JUAN MANUEL, PMHNP- Nurse Practitioner - Outpatient Psychiatry [facility] [place] 06/06/2024 Crisis Planning: Shelly Macdonald [...] Description 06/28/2024 8:40 AM EST Immunization Ancillary [facility] [address] [place] [address] [facility] [address] [place] [address] 06/28/2024 9:30 AM EST Office Visit Cardiology, [facility] [address] [place] [address] Markell Brooks PA-C [address] [place] [address] 07/24/2024 10:00 AM EST Office Visit Pharmacy, [facility] [address] [facility] [place] [address] [facility] [address] [facility] [place] [address] 08/02/2024 8:00 AM EST Telemedicine Psychiatry, [facility] [address] [facility] [place] [address] Pedro Luis Casas CRNP [address] [place] [address] 08/28/2024 9:00 AM EST Office Visit Rheumatology [address], [place] [address] Matthew Mari MD [address] [place] [address] [place], [place] [address] 08/28/2024 9:30 AM EST Imaging [facility] [place] [address] 08/28/2024 11:00 AM EST Office Visit Interventional Pain Center, [facility] [address] [facility] [place] [address] Zi Ramirez DO [address] [place] [phone] 09/17/2024 11:30 AM EST Office Visit Hematology/Oncology [facility] [address] [facility] [address] [place] [address] Angela Renteria CRNP [address] [facility] [place] [address] 10/08/2024 9:00 AM EST Office Visit Dermatology [facility] [place] [address] [place] [address] Justyna Krishnamurthy PA-C [address] [place] [address] 11/19/2024 9:20 AM EDT Office Visit Hepatology, [facility] [address] [place] [address] Lali Chowdhury DO [address] [place] [address] 11/20/2024 7:00 AM EDT Office Visit Neurology [facility] [address] [facility] [place] [address] Kendra Montano PA-C [address] [facility] [place] [address] 05/31/2025 9:20 AM EDT Office Visit Family Practice [facility] [address] [place] [address] Brent Smith MD [address] [place] [address] Scheduled Procedures Name Priority Associated Diagnoses Date/Ti [...] Additional history exists CKD PHOS USE SMARTSET 98087 08/05/202407/22, 08/09/2022, 08/06/2021, Additional history exists Diabetic Foot Exam 08/05/2024 08/05/2023, 1 09/18/2021, 09/04/2021, Additional history exists GFR 11/07/2024 05/10/2024, 06/0 02/2024, 10/25/2023, Additional history exists HbA1c 11/07/2024 05/10/2024, 06/0 02/2024, 10/25/2023, Additional history exists O2 ASSESSMENT COMPLETED IN PAST YEAR FOR COPD 11/30/2024 12/01/2023 B-12 12/14/2024 12/15/2023, 05/22, 11/12/2022, Additional history exists Adult Wellness Visit 03/27/2025 03/27/2024, 10/21/19 CKD HGB USE SMARTSET 21007 05/10/202505/10, 05/10/2024, 03/12/2024, Additional history exists Depression Monitoring 05/10/2025 05/10/2024 Colonoscopy 11/30/2028 12/01/2023, 11/20, 12/16/2020, Additional history exists Colorectal Cancer Screening 11/30/2028 DXA Scan 06/22/2029 06/22/2022, 11/0 08/2021, 10/22/2020, Additional history exists DTap/Tdap Vaccines [...] Documents on File Type Date Recorded 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 Care Teams Clinical Nursing Professor Relationship Specialty Start Date End Date Brent Smith MD [address] [place] [address] PCP - General Family Medicine 04/20/23 documented as of this encounter
--- OUTSIDE RECORDS SUMMARY | 2024-08-09 14:39 | External Medical Summary | Summary of Care ---
Author Name Unknown Organization [facility] Address [address] [facility] [place] [address] Phone [phone] Care Team Providers Care Dress Designer Name Role Phone Brent Trinh MD Primary Care Provider + Reason for Visit * Reason Comments eRx-Medication Refill Encounter Details Date Type Department Care Team (Late st Contact Info) Description 06/25/2024 Refill Family Practice [facility] [address] [place] [address] Brent Trinh MD [address] [place] [address] HILLARY (generalized anxiety disorder) Allergies Active Allergy Reactions Criticality Noted [...] as of this encounter (statuses as of 06/26/2024) Medications Medication Sig Dispensed Refills Start Date [...] with dinner. 90 Tablet 3 3 Active Nystatin-Triamcinol one 614346-4.1 UNIT/GM-% External Ointment (Mycolog)Indication s:Dermatitis Apply topically to affected area 3 times a day. Apply to affected area 15 g 1 3 Active Furosemide 20 MG Oral Tablet (Lasix)Indications: HTN, goal below 140/90,Coronary artery disease involving tetlin heart without angina pectoris, unspecified vessel or [...] MEALS 180 Tablet 3 4 Active [place] 32G X 4 MMIndications:Type 2 diabetes mellitus with hemoglobin A1c goal of less than 8.0% (HCC) Use as directed. To administer insulin. 100 Each 3 4 Active Pioglitazone HCl 30 MG Oral Tablet (Actos) Take 1 Tablet by mouth in the morning. 90 Tablet 3 4 Active FreeStyle LancetsIndications: Type 2 diabetes mellitus [...] 15 minutes 25 Tablet 1 4 Active Albuterol Sulfate HFA 108 (90 Base) MCG/ACT Inhalation Aerosol Solution Inhale 2 Puffs by mouth every 6 hours as needed for Cough, Shortness of Breath or Wheezing. 18 g 3 4 Active Metoprolol Succinate ER 100 MG Oral Tablet Extended Release 24 Hour (toPROL XL) TAKE 1 TABLET IN THE MORNING AND 1 TABLET BEFORE BEDTIME 180 Tablet 3 4 Active Chlorzoxazone 500 MG Oral TabletIndications:L umbar radiculopathy TAKE 1 TABLET AT BEDTIME AND UP TO 3 ADDITIONAL TABLETS DURING THE DAY NEEDED FOR NECK AND HEAD PAIN 270 Tablet 3 4 Active Ondansetron HCl 4 MG Oral TabletIndications:N ausea Take 1 Tablet by mouth every 8 hours as needed for Nausea. 30 Tablet 1 4 Active Ajovy 225 MG/1.5ML Subcutaneous Solution Auto-injectorIndica [...] DINNER 90 Tablet 1 4 Active Tiotropium Oxford-Olodaterol 2.5-2.5 MCG/ACT Inhalation Aerosol Solution (Stiolto Respimat)Indication s:Centrilobular emphysema (HCC) Inhale 2 Puffs by mouth in the morning. 12 g 3 4 Active Methotrexate 2.5 MG Oral Tablet Take 6 Tablets by mouth once a week. 30 Tablet 3 4 Active Folic Acid 1 MG Oral Tablet Take 1 Tablet by mouth in the morning. 30 Tablet 5 4 Active Pantoprazole Sodium 40 MG Oral Tablet Delayed Release (Protonix)Indicatio ns:Gastroesophageal reflux disease with esophagitis, unspecified whether hemorrhage Take 1 Tablet by mouth in the morning. 90 Tablet 3 4 Active Famotidine 20 MG Oral Tablet (Pepcid)Indications :Gastroesophageal reflux disease without esophagitis Take 1 Tablet by mouth in the morning and 1 Tablet before bedtime. 90 Tablet 1 4 Active Nurtec 75 MG Oral Tablet Disintegrating (Rimegepant Sulfate)Indications :Daily headache,Migraine with aura and without status migrainosus, not intractable 1 tab twice weekly as needed for headache 10 Tablet 5 4 Active Nurtec 75 MG Oral Tablet Disintegrating (Rimegepant Sulfate) 1 tab at onset of headache no more than 1 in 24 hours. 15 Tablet 2 4 Active FLUoxetine HCl 40 MG Oral Capsule (PROzac) Take 1 Capsule by mouth in the morning. 90 Capsule 1 4 Active Amitriptyline HCl 10 MG Oral Tablet (Elavil) TAKE 1 TABLET BEFORE BEDTIME 90 Tablet 3 4 Active clonazePAM 1 MG Oral Tablet (KlonoPIN)Indicatio ns:HILLARY (generalized anxiety disorder) TAKE ONE-HALF (1/2) TABLET IN THE EVENING. YOU MAY TAKE AN EXTRA ONE-HALF (1/2) TABLET DAILY NEEDED FOR ANXIETY 90 Tablet 1 4 Active Empagliflozin 10 MG Oral Tablet (Jardiance)Indicati ons:Type 2 diabetes mellitus with hemoglobin A1c goal of less than 8.0% ([facility]) Take 1 Tablet by mouth in the morning. 90 Tablet 3 4 Active clonazePAM 1 MG Oral Tablet (KlonoPIN)Indicatio ns:HILLARY (generalized anxiety disorder) 1/2 tab in evening by mouth. You may take an extra 1/2 tab daily as needed for anxiety. 135 Tablet 1 4 06/26/20 24 Discontinued documented as of this encounter (statuses as of 06/26/2024) Active Problems Problem Noted Date Diagnosed Date [...] Dr Kaushal Giang. 11/19/20 MRI [place]ine in [place]. DDD most C5-6. Mod central canal and mod left foraminal stenosis. Had C5-6 b/l NATAN 03/10 colon [facility]--WNL angie 10y 03/07 MRI lumbar some [...] (coronary artery disease) 07/07/2012 Overview: STENT 2008 [facility] [place] [place] 2004 HTN, goal below 140/90 04/10/2012 Overview: Per HTN Protocol #27. Type 2 diabetes mellitus wit h hemoglobin A1c goal of less than 8.0% 08/06/2009 Overview: Per Lipid Taxonomy. ICD-10 update of inactive term Old myocardial infarct 03/13/2009 Overview: INFEROLATERAL [place] 2003 Chronic rhinitis 10/07/2008 Gastroparesis 04/27/2007 Sarcoidosis 05/12/2005 Overview: DX 2004 EGD showing nonnecrotizing granuloma stomach + wt loss. Saw pulm. FAMILY HX-GI MALIGNANCY 02/09/2005 documented as of this encounter (statuses as of 06/26/2024) Resolved Problems Problem Noted Date Diagnosed Date Resolved Date Coronary artery disease invo lving tetlin coronary artery of tetlin heart with unstable angina pectoris 09/05/2019 08/06/2021 [...] myocardial infarction 03/13/2009 Overview: Modified by Acute [place] Protocol #5. Major depressive disorder, r ecurrent episode, moderate 06/13/2013 documented as of this encounter (statuses as of 06/26/2024) Immunizations Name Administration Dates Next Due COVID-19 [...] Passive Smoke Exposure: Past Smokeless Tobacco: Never Comments:/2 ppd;08/19/21,ti red to quit 8 times, x [...] encounter Miscellaneous Notes * Telephone Encounter - Brent Trinh MD - 06/26/2024 9:04 PM ESTSigned Prescriptions: Disp Refills clonazePAM 1 MG Oral Tablet (KlonoPIN) 90 Tab*1 Sig: TAKE ONE-HALF (1/2) TABLET IN THE EVENING. YOU MAY TAKE AN EXTRA ONE-HALF (1/2) TABLET DAILY NEEDED FOR ANXIETY Authorizing Provider: BRENT TRINH * Telephone Encounter - Yaa Torres [facility] - 06/26/2024 12:01 PM ESTPending Prescriptions: Disp Refills clonazePAM 1 MG Oral Tablet [Pharmacy Med *90 Tab*0 Sig: TAKE ONE-HALF (1/2) TABLET IN THE EVENING. YOU MAY TAKE AN EXTRA ONE-HALF (1/2) TABLET DAILY NEEDED FOR ANXIETY * Telephone Encounter - Yaa Torres RPh - 06/26/2024 11:59 AM EST I have reviewed the patients controlled substance dispensing history in the Prescription Drug Monitoring Program in compliance with the [facility] regulations before prescribing a controlled substance. PDMP checked on 06/26/2024. Pending Prescriptions: Disp Refills clonazePAM 1 MG Oral Tablet (KlonoPIN) [P*90 Tab*0 Sig: TAKE ONE-HALF (1/2) TABLET IN THE EVENING. YOU MAY TAKE AN EXTRA ONE-HALF (1/2) TABLET DAILY NEEDED FOR ANXIETY Last Visit: 05/10/2024 (in office), Visit date not found (telemedicine) Next Visit: 05/31/2025 Date medication was last filled: 03/29/24 Date medication is due for refill: 06/26/24 Pharmacy: [email or web address] Is this request for a controlled substance? Yes and Urine Drug Screen Not completed Toxicology results: No results found. However, due to the size of the patient record, not all encounters were searched.Please check Results Review for a complete set of results. Please approve if appropriate. Thanks, Yaa Torres Clinical Pharmacist [facility] ([facility]) [phone] 06/26/2024, 12:00 PM documented in this encounter Plan of Treatment Upcoming Encounters Date Type Department Care Team (Late st Contact Info) Description 06/28/2024 8:40 AM EST Immunization Ancillary [facility] [address] [facility] [place] [address] Jas, Flu Shot Clinic [facility] Prac [address] [place] [address] 06/28/2024 9:30 AM EST Office Visit Cardiology, [facility] [address] [place] [address] Markell Brooks PA-C [address] [place] [address] 07/09/2024 7:30 AM EST Hospital Encounter OR [facility], Operating Room [facility] [address] [place] [phone] Bill Reilly MD [address] [place] [address] 07/09/2024 7:30 AM EST - 07/09/2024 8:18 AM EST Surgery OR [facility], Operating Room [facility] [address] [place] [phone] Bill Reilly MD [address] [place] [address] LEFT TRIGGER FINGER RELEASE 07/16/2024 10:30 AM EST Office Visit Orthopaedics [facility] [address] [place] [address] Bill Reilly MD [address] [place] [address] 07/24/2024 10:00 AM EST Office Visit Pharmacy, [facility] [address] [place] [address] [facility] [address] [place] [address] 08/02/2024 8:00 AM EST Telemedicine Psychiatry, [facility] [address] [place] [address] Pedro Luis Casas CRNP [address] [place] [address] 08/10/2024 8:00 AM EST Laboratory Laboratory, [facility] [address] [facility] [place] [phone] [facility] [address] [facility] [place] [address] 08/28/2024 9:00 AM EST Office Visit Rheumatology [place] [phone] [facility] [place] [address] Matthew Mari MD [facility] [place] [address] 08/28/2024 9:45 AM EST Imaging [facility] [address] [facility] [place] [address] 08/28/2024 11:00 AM EST Office Visit Interventional Pain Center, [facility] [address] [facility] [place] [address] Zi Ramirez DO 132 [facility] [place] [phone] 09/17/2024 11:30 AM EST Office Visit Hematology/Oncolog y [facility] [address] [place], [place] [phone] Angela Renteria CRNP [address] [place] [address] [place] [address] 10/08/2024 9:00 AM EST Office Visit Dermatology [facility] [place] [address] [place] [address] Justyna Krishnamurthy PA-C [address] [facility] [place] [address] 11/19/2024 9:20 AM EDT Office Visit Hepatology, [facility] [address] [facility] [place] [address] Lali Chowdhury DO 132 [facility] [place] [address] 11/20/2024 7:00 AM EDT Office Visit Neurology [facility] [address] [facility] [address] [address] [place] [address] Kendra Montano PA-C [facility] [place] [address] 05/31/2025 9:20 AM EDT Office Visit Family Practice [facility] [place] [address] Brent Trinh MD [address] [facility] [place] [address] Scheduled Procedures Name Priority Associated Diagnoses Date/Ti [...] Additional history exists CKD PHOS USE SMARTSET 15249 08/05/202407/22, 08/09/2022, 08/06/2021, Additional history exists Diabetic [...] 03/27/2024, 10/21/19 22 CKD HGB USE SMARTSET 04137 05/10/202505/10, 05/10/2024, 03/12/2024, Additional history exists Depression [...] Discontinued 12/01/2023, 12/01/2023, 12/16/2020, Additional history exists HPV (Gardasil) Vaccine Aged [...] finger of left hand Trigger finger (acquired) HILLARY (generalized anxiety disorder) Generalized anxiety disorder Dupuytren's disease of palm of left hand Trigger middle finger of left hand Trigger finger (acquired) Trigger index finger of left hand Trigger finger (acquired) documented in this encounter Advance Directives Documents on File Type Date Recorded Patient Licensed Weigher 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 Care Teams Dress Designer Relationship Specialty Start Date End Date Brent Trinh MD [address] [place] [address] [address] PCP - General Family Medicine 04/20/23 documented as of this encounter
--- OUTSIDE RECORDS SUMMARY | 2024-08-09 14:39 | External Medical Summary | Summary of Care ---
Author Name Unknown Organization [facility] Address [address] [place] [facility] [place] [address] Phone [phone] Care Team Providers Care Deputy Court Clerk Name Role Phone Brent Smith MD Primary Care Provider + Reason for Visit * Reason Onset Date Comments Health Maintenance 06/15/2024 Encounter Details Date Type Department Care Team (Late st Contact Info) Description 06/15/2024 Telephone Family Practice [facility] [address] [place] [address] Brent Smith MD [address] [place] [address] Health Maintenance Allergies Active Allergy Reactions Criticality Noted Date [...] 90 Tablet 3 04/01/2023 Active Nystatin-Triamcinolon e 551554-0.1 UNIT/GM-% External Ointment (Mycolog)Indications: Dermatitis Apply topically to affected area 3 times a day. Apply to affected area 15 g 1 04/18/2023 Active Furosemide 20 MG Oral Tablet (Lasix)Indications:HT N, goal below 140/90,Coronary artery disease involving gakona heart without angina pectoris, unspecified vessel or [...] MEALS 180 Tablet 3 08/29/2023 Active Pen [place] 32G X 4 MMIndications:Type 2 diabetes mellitus [...] hemoglobin A1c goal of less than 8.0% ([facility]) Use to test blood sugar [...] DINNER 90 Tablet 1 02/01/2024 Active Tiotropium Maury-Olodaterol 2.5-2.5 MCG/ACT Inhalation Aerosol Solution (Stiolto Respimat)Indications: [...] the morning. 90 Capsule 1 06/06/2024 Active documented as of this encounter (statuses [...] stenosis. Had C5-6 b/l NATAN 03/10 colon @[facility]--WNL angie 10y 03/07 MRI lumbar [...] (coronary artery disease) 07/07/2012 Overview: STENT 2007 [facility], [place] 2004 HTN, goal below 140/90 04/10/2012 Overview: Per HTN Protocol #27. ADVANCE DIRECTIVE INFORMATION 03/19/2010 Overview: Information offered-patient declined. Type 2 diabetes mellitus wit h hemoglobin A1c goal of less than 8.0% 08/06/2009 Overview: Per Lipid Taxonomy. 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 Saw pulm. FAMILY HX-GI MALIGNANCY 02/09/2005 documented as of this encounter (statuses as of 06/15/2024) Resolved Problems Problem Noted Date Diagnosed Date Resolved Date Coronary artery disease invo lving gakona coronary artery of gakona heart with unstable angina pectoris 09/05/2019 08/06/2021 [...] myocardial infarction 03/13/2009 Overview: Modified by Acute [place] Protocol #5. Major [...] encounter Miscellaneous Notes * Telephone Encounter - Isabelle RiosROSITA - 06/15/2024 8:36 AM EDT Care Gaps Comprehensive Care Outreach Last Office/Telemedicine Visit: 05/10/2024 (in office), Visit date not found (telemedicine) Next Office Visit: 05/31/2025 Hemoglobin AIC Results: Lab Results Component Value Date/Time HEMOGLOBIN A1C - [facility] 8.1 (H) 05/10/2024 07:42 AM HEMOGLOBIN A1C - [facility] 6.9 (H) 01/27/2024 08:14 AM HEMOGLOBIN A1C - [facility] 8.8 (H) 10/25/2023 09:17 AM HEMOGLOBIN A1C - [facility] 6.9 (H) 05/10/2019 10:19 AM HEMOGLOBIN A1C - [facility] 7.0 (H) 10/13/2018 08:30 AM HEMOGLOBIN A1C - [facility] 7.2 (H) 08/23/2018 09:04 AM BP Readings from Last 1 Encounters: 05/14/24 132/68 Reviewed Health Maintenance below: Health Maintenance Topic Date Due DISCUSS TOBACCO CESSATION (REFER TO SMARTSET #3291) 05/10/2018 Mammogram 12/10/2023 Influenza Vaccine (FLU shot) (1) 04/22/2024 Diabetic Eye Exam 06/30/2024 Albumin/Creatinine Ratio 08/05/2024 Diabetic Foot Exam 08/05/2024 CKD PHOS USE SMARTSET 56182 08/05/2024 HbA1c 11/07/2024 GFR 11/07/2024 Mamm mt darnelladán will request Eye nov sees matt [facility] added phos she is going in dec lab appt scheduled Care Gap Outreach Action Taken: Spoke to patient documented in this encounter Plan of Treatment Upcoming Encounters Date Type Department Care Team (Late st Contact Info) Description 06/28/2024 8:40 AM EST Immunization Ancillary [facility] [address] [place] [address] [facility] [address] [place] [address] 06/28/2024 9:30 AM EST Office Visit Cardiology, [facility] [address] [place] [address] Markell Brooks PA-C [address] [place] [address] 07/09/2024 7:30 AM EST Hospital Encounter OR [facility], Operating Room [facility] [address] [place] [phone] Bill Reilly MD [address] [place] [address] 07/09/2024 7:30 AM EST - 07/09/2024 8:18 AM EST Surgery OR [facility], Operating Room [facility] [address] [place] [phone] Bill Reilly MD [address] [place] [address] LEFT TRIGGER FINGER RELEASE 07/16/2024 10:30 AM EST Office Visit Orthopaedics [facility] [address] [place] [address] Bill Reilly MD [address] [place] [address] 07/24/2024 10:00 AM EST Office Visit Pharmacy, [facility] [address] [place] [address] [facility] [place] [address] 08/02/2024 8:00 AM EST Telemedicine Psychiatry, [facility] [address] [place] [address] Pedro Luis Casas CRNP [address] [place] [address] 08/10/2024 8:00 AM EST Laboratory Laboratory, [facility] [address] [facility] [place] [phone] Rik Steele [facility] [address] [facility] [place] [address] 08/28/2024 9:00 AM EST Office Visit Rheumatology [address] [place], [place] [address] Matthew Mari MD [address] [place] [address] [place], [place] [address] 08/28/2024 9:45 AM EST Imaging [facility]iology [facility] [address] [facility] [place] [address] 08/28/2024 11:00 AM EST Office Visit Interventional Pain Center, [facility] [place] [address] Zi Ramriez DO [address] [place] [phone] 09/17/2024 11:30 AM EST Office Visit H[facility] [address] [place], [place] [phone] Angela Renteria CRNP [address] [place] [address] 10/08/2024 9:00 AM EST Office Visit Dermatology [facility] [place] [address] [facility] [place] [address] Justyna Krishnamurthy PA-C [address] [facility] [place] [address] 11/19/2024 9:20 AM EDT Office Visit Hepatology, [facility] [address] [facility] [place] [address] Lali Chowdhury DO [address] [facility] [place] [address] 11/20/2024 7:00 AM EDT Office Visit Neu[facility] [address] [place], [place] [address] Kendra Montano PA-C [facility] [place] [address] 05/31/2025 9:20 AM EDT Office Visit Family Practice [facility] [address] [facility] [place] [address] Brent Smith MD [address] [facility] [place] [address] Scheduled Orders Name Type Priority Associated Diagnoses Orde r Schedule PHOSPHORUS Lab Routine Chronic kidney disease, unspecified CKD stage Expected: 08/10/2024, Expires: 06/15/2025 Scheduled Procedures Name Priority Associated Diagnoses Date/Ti [...] Additional history exists CKD PHOS USE SMARTSET 24112 08/05/202407/22, 08/09/2022, 08/06/2021, Additional history exists Diabetic [...] 03/27/2024, 10/21/19 22 CKD HGB USE SMARTSET 49812 05/10/202505/10, 05/10/2024, 03/12/2024, Additional history exists Depression [...] finger of left hand Trigger finger (acquired) Chronic kidney disease, unspecified CKD stage- Primary Dupuytren's disease of palm of left hand Trigger middle finger of left hand Trigger finger (acquired) Trigger index finger of left hand Trigger finger (acquired) documented in this encounter Advance Directives Documents on File Type Date Recorded 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 Care Teams Deputy Court Clerk Relationship Specialty Start Date End Date Brent Smith MD [address] [place] [address] PCP - General Family Medicine 04/20/23 documented as of this encounter
--- OUTSIDE RECORDS SUMMARY | 2024-08-09 14:39 | External Medical Summary | Summary of Care ---
Author Name Unknown Organization [facility] Address [address] [facility] [place] [address] Phone [phone] Care Team Providers Care Welfare Worker Name Role Phone Brent Smith MD Primary Care Provider + Encounter Details Date Type Department Care Team (Late st Contact Info) Description 06/04/2024 Telephone Orthopaedics [facility] [address] [place] [phone] Bill Reilly MD [address] [place] [id number] Allergies Active Allergy Reactions Criticality Noted Date [...] 90 Tablet 3 04/01/2023 Active Nystatin-Triamcinolon e 447589-6.1 UNIT/GM-% External Ointment (Mycolog)Indications: Dermatitis Apply topically to affected area 3 times a day. Apply to affected area 15 g 1 04/18/2023 Active Furosemide 20 MG Oral Tablet (Lasix)Indications:HT N, goal below 140/90,Coronary artery disease involving king salmon heart without angina pectoris, unspecified vessel or [...] MEALS 180 Tablet 3 08/29/2023 Active Pen Dyess 32G X 4 MMIndications:Type 2 diabetes mellitus [...] DINNER 90 Tablet 1 02/01/2024 Active Tiotropium [place]-Olodaterol 2.5-2.5 MCG/ACT Inhalation Aerosol Solution (Stiolto Respimat)Indications: [...] done. 11/11 Upper endoscopy ok. 12/10 in [place]--upper/lower scope WNL--angie [address] Kaushal Giang. 11/19/20 MRI C-Spine in [place]. DDD most C5-6. Mod central canal and mod left foraminal stenosis. Had C5-6 b/l NATAN 03/10 colon [facility]--WNL angie 10y 03/07 MRI lumbar [...] (coronary artery disease) 07/07/2012 Overview: STENT 2008 [facility], [place] 2004 HTN, goal below 140/90 04/10/2012 Overview: Per HTN Protocol #27. ADVANCE DIRECTIVE INFORMATION 03/19/2010 Overview: Information offered-patient declined. Type 2 diabetes mellitus wit h hemoglobin A1c goal of less than 8.0% 08/06/2009 Overview: Per Lipid Taxonomy. ICD-10 update of inactive term Old myocardial infarct 03/13/2009 Overview: INFEROLATERAL [place] 2003 Chronic rhinitis 10/07/2008 Gastroparesis 04/27/2007 Sarcoidosis 05/12/2005 Overview: DX 2004 EGD showing nonnecrotizing granuloma stomach + wt loss. Saw pulm. FAMILY HX-GI MALIGNANCY 02/09/2005 documented as of this encounter (statuses as of 06/06/2024) Resolved Problems Problem Noted Date Diagnosed Date Resolved Date Coronary artery disease invo lving king salmon coronary artery of king salmon heart with unstable angina pectoris 09/05/2019 08/06/2021 [...] myocardial infarction 03/13/2009 Overview: Modified by Acute [place] Protocol #5. Major [...] No 05/18/2023 Does the household have a [place] [facility] source of income? (Household - for [...] encounter Miscellaneous Notes * Telephone Encounter - Aye Drake OSA - 06/06/2024 12:41 PM EDT Patient returned my call and is scheduled for surgery on 07/09/24 * Telephone Encounter - Aye Drake OSA - 06/04/2024 1:22 PM EDT I called this patient to schedule surgery with Dr. Reilly. No answer. Left message for call back. documented in this encounter Plan of Treatment Upcoming Encounters Date Type Department Care Team (Late st Contact Info) Description 06/28/2024 8:40 AM EST Immunization Ancillary [facility] [address] [place] [id number] [facility] [address] [place] [address] 06/28/2024 9:30 AM EST Office Visit Cardiology, [facility] [address] [place] [address] Markell Brooks PA-C [address] [place] [address] 07/09/2024 Hospital Encounter OR [facility], Operating Room [facility] [address] [place] [phone] Bill Reilly MD [address] [place] [address] 07/16/2024 10:30 AM EST Office Visit Orthopaedics [facility] [address] [place] [address] Bill Reilly MD [address] [place] [address] 07/24/2024 10:00 AM EST Office Visit Pharmacy, [facility] [address] [facility] [place] [address] [facility] [address] [facility] [place] [address] 08/02/2024 8:00 AM EST Telemedicine Psychiatry, [facility] [address] [facility] [place] [address] Pedro Luis Casas CRNP [address] [place] [address] 08/28/2024 9:00 AM EST Office Visit Rheumatology [address] [place] [address] Matthew Mari MD [address] [place] [address] [place] [address] 08/28/2024 9:30 AM EST [facility] [address] [facility] [place] [address] 08/28/2024 11:00 AM EST Office Visit Interventional Pain Center, [facility] [address] [facility] [place] [address] Zi Ramirez DO [address] [place] [phone] 09/17/2024 11:30 AM EST Office Visit Hematology/Oncology [facility] [address] [facility] [place] [phone] Angela Renteria, JUAN MANUEL [address] [facility] [place] [address] 10/08/2024 9:00 AM EST Office Visit Dermatology [facility] [place] [place] [address] [place], [place] [address] Justyna Krishnamurthy, CHERRIE [address] [facility], [place] [address] 11/19/2024 9:20 AM EDT Office Visit Hepatology, [facility] [address] [place] [address] Lali Chowdhury DO [address] [facility] [place] [address] 11/20/2024 7:00 AM EDT Office Visit Neurology [facility] [address] [facility] [address] Kendra Montano PA-C [address] [facility] [place] [address] 05/31/2025 9:20 AM EDT Office Visit Family Practice [facility] [address] [place] [address] Brent Smith MD [address] [place] [address] Scheduled Procedures Name Priority Associated Diagnoses Date/Ti [...] Additional history exists CKD PHOS USE SMARTSET 09618 08/05/202407/22, 08/09/2022, 08/06/2021, Additional history exists Diabetic Foot Exam 08/05/2024 08/05/2023, 1 09/18/2021, 09/04/2021, Additional history exists GFR 11/07/2024 05/10/2024, 06/0 02/2024, 10/25/2023, Additional history exists HbA1c 11/07/2024 05/10/2024, 06/0 02/2024, 10/25/2023, Additional history exists O2 ASSESSMENT COMPLETED IN PAST YEAR FOR COPD 11/30/2024 12/01/2023 B-12 12/14/2024 12/15/2023, 05/22, 11/12/2022, Additional history exists Adult Wellness Visit 03/27/2025 03/27/2024, 10/21/19 CKD HGB USE SMARTSET 87371 05/10/202505/10, 05/10/2024, 03/12/2024, Additional history exists Depression [...] Documents on File Type Date Recorded 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 Care Teams Welfare Worker Relationship Specialty Start Date End Date Brent Smith MD [address] [place] [address] PCP - General Family Medicine 04/20/23 documented as of this encounter
--- OUTSIDE RECORDS SUMMARY | 2024-08-09 14:40 | External Medical Summary | Summary of Care ---
Author Name Unknown Organization [facility] Address [address] [place] [place] [address] Phone [phone] Care Team Providers Care Refractory Mixer Name Role Phone Brent Smith MD Primary Care Provider + Reason for Referral * Evaluate & Treat - Unlimited Visits (Within 10 days (routine)) - Authorized Specialty Diagnoses / Procedures Referred By Chayo brennan Referred To Contact Pain Management / Pain Medicine Diagnoses Low back pain with left-sided sciatica SharerTheresa PA-C [address] [place] [address] Referral ID Status Reason Start Date Expiration Date Visits Requested Visits Authorized [id number] Authorized Specialty Services Required 4 [phone] Question Answer Referral Priority Within 10 days (routine) Where should this appointment be scheduled? ising Reason for referral? Interventional Pain Management - (Injection) What condition is the patient being referred for? Back Axial What is the preferred location to have this test performed? [facility] Comments Patient Name: Shelly Macdonald Date of : 1950 Department Phone Number: MRI or CT (if unable to have a MRI) is recommended if any of the following apply: 1. Patient has neck or back pain with radiation to extremities. A previous MRI will be accepted if symptoms unchanged since prior MRI. 2. Spinal surgery since last MRI. If yes, order a MRI with and without contrast. 3. Hx or ongoing cancer treatment. Patient will need spine x-ray (Ap/Lat) for axial neck or back pain if not done previously. Fax No. [facility] [phone] or contact front counter attendant [phone] Fax No. [facility] [phone] or contact front counter attendant [phone] Fax No. [facility] [phone] or contact front counter attendant [phone] * Evaluate & Treat - Unlimited Visits (Within 10 days (routine)) - Authorized Specialty Diagnoses / Procedures Referred By Chayo t Referred To Contact Physical Therapy / Physical Medicine And Rehab Diagnoses Low back pain with left-sided sciatica Theresa Kramer PA-C [address] [place] [address] Referral ID Status Reason Start Date Expiration Date Visits Requested Visits Authorized [id number] Authorized Specialty Services Required 4 [phone] Question Answer Referral Priority Within 10 days (routine) Where should this appointment be scheduled? External Comments Core strengthening, stretching, conditioning, lower extremity strengthening Modalities as needed for pain relief Physical therapy 2 x a week for 6 weeks with home program Reason for Visit * Reason Comments NEW PATIENT L hip Encounter Details Date Type Department Care Team (Late st Contact Info) Description 05/31/2024 9:45 AM EDT Office Visit Orthopaedics [facility] [address] [place] [address] Theresa Kramer PA-C [address] [place] [address] Chronic left-sided low back pain without sciatica* Allergies Active Allergy Reactions Criticality Noted Date [...] as of this encounter (statuses as of 05/31/2024) Medications Medication Sig Dispensed Refills Start Date [...] 90 Tablet 3 04/01/2023 Active Nystatin-Triamcinolon e 769416-3.1 UNIT/GM-% External Ointment (Mycolog)Indications: Dermatitis Apply topically to affected area 3 times a day. Apply to affected area 15 g 1 04/18/2023 Active Furosemide 20 MG Oral Tablet (Lasix)Indications:HT N, goal below 140/90,Coronary artery disease involving washoe heart without angina pectoris, unspecified vessel or [...] MEALS 180 Tablet 3 08/29/2023 Active Pen Paragonah 32G X 4 MMIndications:Type 2 diabetes mellitus with hemoglobin A1c goal of less than 8.0% ([facility]) Use as directed. To administer insulin. 100 Each 3 08/29/2023 Active Pioglitazone HCl 30 MG Oral Tablet (Actos) Take 1 Tablet by mouth in the morning. 90 Tablet 3 08/29/2023 Active FreeStyle LancetsIndications:Ty pe 2 diabetes mellitus with hemoglobin A1c goal of less than 8.0% ([facility]) Use to test blood sugar twice daily or as directed E11.9 180 Each 09/08/2023 Active FreeStyle Lite Test In Vitro Strip (Glucose Blood)Indications:Typ e 2 diabetes mellitus with hemoglobin A1c goal of less than 8.0% ([facility]) Use to test blood sugar [...] DINNER 90 Tablet 1 02/01/2024 Active Tiotropium Limestone-Olodaterol 2.5-2.5 MCG/ACT Inhalation Aerosol Solution (Stiolto Respimat)Indications: [...] as of this encounter (statuses as of 05/31/2024) Active Problems Problem Noted Date Diagnosed Date Major depressive disorder, r ecurrent severe without [...] done. 11/11 [place]oscopy [place]10 [place]--upper/lower scope WNL--angie [address] Kaushal Giang. 11/19/20 [place] DDD most C5-6. Mod central canal and mod left foraminal stenosis. Had C5-6 b/l NATAN 03/10 colon [facility]--WNL angie 10y 03/07 MRI lumbar [...] artery disease) 07/07/2012 Overview: STENT 2008 [facility], [place] 2004 HTN, goal below 140/90 04/10/2012 [...] as of this encounter (statuses as of 05/31/2024) Resolved Problems Problem Noted Date Diagnosed Date Resolved Date Coronary artery disease invo lving washoe coronary artery of washoe heart with unstable angina pectoris 09/05/2019 08/06/2021 [...] as of this encounter (statuses as of 05/31/2024) Immunizations Name Administration Dates Next Due COVID-19 [...] Seasonal Influenza, Quadriva lent, No Preserve, IM 05/16/2020,05/10/2017,06/24/2016,10/0 01/201506/24/2017 Seasonal Influenza, Trivalen t, Adjuvanted, 65+ YRS, [...] as of this encounter Progress Notes * Sharer, Theresa Thomas PA-C - 05/31/2024 11:34 AM EDT Shelly Macdonald is a 73 year old female who presents for consultation to [facility] for back pain. History: Shelly Macdonald reports that left back pain started yesterday morning. Reports acute onset. She denies injury. States she woke up with the pain. Reports pain along the left low back. She denies radiating pain, numbness, tingling. She has a history of ankylosing spondylitis in his follow up by Rheumatology. She was transitioning to a new physician and has an appointment in proximally 2 weeks. She has been treated with physical therapy and injections in the past without relief. She was taken Advilwithout relief. Review of systems: All others negative except those noted above in HPI. Review of patient's allergies indicates: Allergen Reactions [...] TABLET BEFORE BEDTIME 90 Tablet 3 Nystatin-Triamcinolone 238700-5.1 UNIT/GM-% External Ointment (Mycolog) Apply topically to affectedarea 3 times a day. Apply to affected area 15 g 1 Furosemide 20 MG Oral Tablet (Lasix) Take 1 Tablet by mouth in the morning. 90 Tablet 3 metFORMIN HCl 1000 MG Oral Tablet (Glucophage) TAKE 1 TABLET TWICE A DAY WITH MORNING AND EVENING MEALS 180 Tablet 3 Pen Paragonah 32G X 4 MM Use as directed. [...] DAILY WITH DINNER 90 Tablet 1 Tiotropium Limestone-Olodaterol 2.5-2.5 MCG/ACT Inhalation Aerosol Solution (Stiolto Respimat) [...] 24 hours. 15 Tablet 2 COVID-19 mRNA Vac-Klaus(MustHaveMenus) 30 MCG/0.3ML Intramuscular Suspension Prefilled Syringe ([employer]) Inject into a large muscle. 0.3 mL 0 No current facility-administered medications for this visit. Past Medical History: Diagnosis Date ASCVD (arteriosclerotic cardiovascular disease) 07/07/2012 STENT 2007 [place], [place] 2003 Autoimmune hepatitis (HCC) 05/06/2023 CAD (coronary artery disease) 07/07/2012 STENT 2007 [place], [place] 2003 Cervical disc disorder 04/23/2014 Chronic [...] intractable 09/23/2015 Old myocardial infarct 03/13/2009 INFEROLATERAL [place] 2003 LUISA (obstructive sleep apnea) 10/13/2017 S/P cardiac [...] disorder, recurrent severe without psychotic features (HCC) Past Surgical History: Procedure Laterality Date CARDIAC CATH-CARDIOLOGY ONLY 11/06/2007 STENTED - taxus express 2 CARDIAC CATH-CARDIOLOGY ONLY 10/17/2018 2 stents LAD @[facility]. Dr Morales CARDIAC CATH-CARDIOLOGY ONLY 01/29/2019 drug eluiting stent [place] [facility] CARPAL TUNNEL SURGERY Bilateral Carpal Tunnel repair COLONOSCOPY THRU STOMA, W/BIOPSY 06/15/2007 hyperplastic, repeat in 10 years COLONOSCOPY, DIAGNOSTIC (RECTUM) 05/15/2012 COLONOSCOPY FLEXIBLE PROXIMAL DIAGNOSTIC performed by Robina Lozoya DO at ENDOSCOPY [facility],HYPERPLASTIC POLYPS REPEAT COLONOSCOPY IN 5 YEARS COLONOSCOPY, DIAGNOSTIC (RECTUM) 07/12/2016 tortuous colon, diverticulosis, repeat 5 yrs/[facility] COLONOSCOPY, DIAGNOSTIC (RECTUM) 12/01/2023 sigmoid diverticulosis/COLONOSCOPY FLEXIBLE PROXIMAL DIAGNOSTIC performed by Zenobia Costa MD at ENDOSCOPY [facility] EGD, FLEXIBLE, DIAGNOSTIC 07/12/2016 normal bx/[facility] EGD, FLEXIBLE, DIAGNOSTIC 11/18/2022 biopsies normal/ESOPHAGOGASTRODUODENOSCOPY (EGD), FLEXIBLE, TRANSORAL, DIAGNOSTIC performed by MD Marcial at ENDOSCOPY [facility] EGD, FLEXIBLE, DIAGNOSTIC 12/01/2023 normal/ESOPHAGOGASTRODUODENOSCOPY (EGD), FLEXIBLE, TRANSORAL, DIAGNOSTIC performed by Zenobia Costa MD at ENDOSCOPY [facility] EGD, W/ENDOSCOPIC US 11/29/2012 UPPER GI ENDOSCOPY ENDOSCOPIC ULTRASOUND performed by Chikis Cole DO at OR [facility]: benign polyp to stomach EGD, W/ENDOSCOPIC US 01/25/2023 mild liver fibrosis, GB sludge / ESOPHAGOGASTRODUODENOSCOPY (EGD), FLEXIBLE, TRANSORAL, ENDOSCOPIC ULTRASOUND performed by Miguel Ruff MD at ENDOSCOPY [facility] INFORMATION Laparoscopy X3 KNEE ARTHROSCOPY, DIAGNOSTIC Right Knee Scope,Diagnostic MISCELLANEOUS ORDER ([facility] ONLY) 05/19/2016 NATAN L5-s1 Dr Leija [facility] OTHER Bilateral 02/09/2021 b/l C5-6 NATAN at [facility] REMOVE TONSILS & ADENOIDS, UNDER 12 SMALL BOWEL ENDOSCOPY W/BX 03/2007 TENDON SHEATH INCISION, FINGER Right 11/28/2017 TRIGGER FINGER RELEASE performed by Marcelo Arnold DO at [facility] TENDON SHEATH INCISION, FINGER Left 09/21/2023 LEFT TRIGGER FINGER RELEASE performed by Bill Reilly MD at [facility] TOTAL HYSTERECTOMY VALARIE (Total Abdominal Hysterectomy) Social History Socioeconomic History Marital status: Spouse name: Not on file Number of children: Not on file Years of education: Not on file Highest education level: Not on file Occupational History 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 Has 3 grown children. Retired Social Determinants of Health Financial Resource Strain: Low Risk (05/18/2023) Financial [...] 0-17 years): Not on file Social Connections: Unknown (05/31/2024) Social Connections How often do you feel lonely or isolated from those around you? (Adult - for ages 18 years and over): Not on file Housing Stability: Low Risk (05/18/2023) Housing Stability Do you currently live in a [place] facility or have no steady place to sleep [...] - for ages0-17 years): Not on file Family History Problem Relation Name Age of Onset Hypertension Mother chiqui Arthritis Mother chiqui Heart Disorder Mother chiqui heart attack Lung Disorder Mother cihqui COPD Mental Disorder Mother chiqui depression Cancer [...] (Maternal) Chiqui M Stroke Grandmother (Paternal) Morena Family History; none relevant to today's HPI Objective: [facility] 06/04/2023 06:36 06/04/2023 06:38 09/07/2023 06:09 09/07/2023 06:11 09/21/2023 06:20 09/21/2023 06:21 05/30/2024 06:23 05/30/2024 06:25 05/30/2024 06:27 [facility] Date of Service 2023-07-08 2023-07-08 2023-09-12 2023-09-12 2023-09-26 2023-09-26 2024-06-04 2024-06-04 2024-06-04 Appt Label now now now now now now now now now Pain Interference Bank v1.1 (Pt Reported) 73.7037 Upper Extremity Bank v2.0 (Pt Reported) 31.0855 22.2914 22.2914 22.7814 Quick Disabilities of the Arm, Shoulder, and Hand Computer Adapted Test (Pt Reported) 49.4 62.7545 74.0545 86.4545 Physical Exam There were no vitals filed for this visit. Estimated body mass index is 24.22 kg/m as calculated from the following: Height as of 05/14/24: 1.6 m (5' 2.99"). Weight as of 05/14/24: 62 kg (136 lb 11.2 oz). General: generally well-nourished and in no acute distress HEENT: normocephalic, atraumatic, sclera anicteric. Psych: mood and affect normal , cooperative Card: Peripheral pulses with regular rate and rhythm in affected extremity (s) Resp: equal chest rise, non-tachypneic, non-labored breathing Skin: no rash, normal Neuro: Sensation: normal on affected extremity (s) MSK: Back exam: Gait: Normal reciprocal gait. Non-antalgic without an assistive device on smooth flat indoor surface. Able to toe/heel/tandem walk without difficulty, and no loss of balance Inspection: no overlying skin changes, no deformity Palpation: tenderness to palpation along left SI joint and left lower Lumbar paraspinals. Spinous processes are nontender Range of Motion: Lumbar ROM: no gross limitation in flexion, extension and rotation Pain worse with extension Strength Abduction: R - 5/5 L - 5/5 Internal Rotation: R - 5/5 L - 5/5 Quads: R - 5/5 L - 5/5 Hamstrings: R - 5/5 L - 5/5 Adduction: R - 5/5 L - 5/5 Trendelenburg negative Bilateral Nerve root tests: Slump - negative Supine SLR- Right: negative Left: negative Radiology (I have personally reviewed the following films): 05/31/2024 5 non rib bearing lumbar vertebrae Spine revealed degenerative changes with disc space narrowing and facet arthropathy. Assessment and Plan: Chronic left-sided low back pain without sciatica (Primary) - XR L SPINE COMPLETE - PHYSICAL THERAPY REFERRAL OP - PAIN MEDICINE REFERRAL OP Recommend course of physical therapy. Advised Tylenol as needed for taylor. Discussed activity modification and ice/heat as needed for pain. Consider follow up with pain management 6 weeks if symptoms persist Follow Up: Return for follow up with pain management 6 weeks if symptoms persist. | For: follow up with pain management 6 weeks if symptoms persist Theresa Kramer PA-C [facility] Orthopaedics [facility] [address] [place] [address] documented in this encounter Nursing Notes * Amy Del Real LPN - 05/31/2024 10:41 AM EDT Pt presents for new ortho urgent care visit, pain in L hip. Began upon waking yesterday morning, states she woke up laying prone, reports this usually causes back pain through the day. Continues to feel pain in L hip, pt points to the top of her L outer buttock. Took half of chlorzoxasone yesterday morning, then 3 Advil liquid gels; nothing helped. States she's 'always had pain in my back, nothing like this' it always resolves on it's own. documented in this encounter Plan of Treatment Upcoming Encounters Date Type Department Care Team (Late st Contact Info) Description 06/04/2024 11:00 AM EDT Office Visit Orthopaedics [facility] [address] [place] [id number] Bill Reilly MD [address] [place] [id number] 06/06/2024 8:00 AM EDT Telemedicine Psychiatry, [facility] [address] [place] [address] Pedro Luis Casas CRNP [address] [place] [address] 06/28/2024 8:40 AM EST Immunization Ancillary [facility] [address] [place] [address] Jas, [facility] [place] [address] 06/28/2024 9:30 AM EST Office Visit Cardiology, [facility] [address] [place] [address] Markell Brooks PA-C [address] [place] [address] 07/24/2024 10:00 AM EST Office Visit Pharmacy, [facility] [address] [facility] [place] [address] [facility] [place] [address] [facility] [place] [address] 08/28/2024 9:00 AM EST Office Visit Rheumatology [address], [place] [address] Matthew Mari MD [address] [place] [address] [place], [place] [address] 08/28/2024 9:30 AM EST Imaging Radiology [facility] 1st Floor, [place] [address] [facility] [place] [address] 08/28/2024 11:00 AM EST Office Visit Interventional Pain Center, [facility] [address] [facility] [place] [address] Zi Ramirez DO [address] [place] [phone] 09/17/2024 11:30 AM EST Office Visit Hematology/Oncology [facility] [address] [facility] [place] [phone] Angela Renteria CRNP [address] [facility] [place] [address] 10/08/2024 9:00 AM EST Office Visit Dermatology [facility] [place] [address] [place] [address] Justyna Krishnamurthy PA-C [address] [facility] [place] [address] 11/19/2024 9:20 AM EDT Office Visit Hepatology, [facility] [address] [facility] [place] [address] Lali Chowdhury DO [address] [place] [address] 11/20/2024 7:00 AM EDT Office Visit Neurology [facility] [address] [facility] [place] [address] Kendra Montano PA-C [address] [place] [address] 05/31/2025 9:20 AM EDT Office Visit Family Practice [facility] [address] [facility] [place] [address] Brent Smith MD [address] [place] [address] Pending Results Name Type Priority Associated Diagnoses Date /Time XR L SPINE COMPLETE Medical Imaging Routine Chronic left-sided low back pain without sciatica 05/31/2024 10:57 AM EDT Scheduled Referrals Name Type Priority Associated Diagnoses Orde r Schedule PHYSICAL THERAPY REFERRAL OP Referral Within 10 days (routine) Chronic left-sided low back pain without sciatica Ordered: 05/31/2024 PAIN MEDICINE REFERRAL OP Referral Within 10 days (routine) Chronic left-sided low back pain without sciatica Ordered: 05/31/2024 Health Maintenance Due Date Last Done Comments [...] Additional history exists CKD PHOS USE SMARTSET 66766 08/05/202407/22, 08/09/2022, 08/06/2021, Additional history exists Diabetic [...] 03/27/2024, 10/21/19 22 CKD HGB USE SMARTSET 10939 05/10/202505/10, 05/10/2024, 03/12/2024, Additional history exists Depression [...] as of this encounter Visit Diagnoses Diagnosis Chronic left-sided low back pain without sciatica- Primary documented in this encounter Advance Directives Documents on File Type Date Recorded Patient Supervisor Fine Grading 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 Care Teams Refractory Mixer Relationship Specialty Start Date End Date Brent Smith MD [address] [place] [address] PCP - General Family Medicine 04/20/23 documented as of this encounter
--- OUTSIDE RECORDS SUMMARY | 2024-08-09 14:40 | External Medical Summary | Summary of Care ---
Author Name Unknown Organization [facility] Address [address] [facility] [address] Phone [phone] Care Team Providers Care Build Master Name Role Phone Brent Smith MD Primary Care Provider + Encounter Details Date Type Department Care Team (Late st Contact Info) Description 05/30/2024 Patient Reported Data Patient Survey Ortho OBERD Allergies Active Allergy Reactions Criticality Noted Date [...] as of this encounter (statuses as of 05/30/2024) Medications Medication Sig Dispensed Refills Start Date [...] 90 Tablet 3 04/01/2023 Active Nystatin-Triamcinolon e 985857-6.1 UNIT/GM-% External Ointment (Mycolog)Indications: Dermatitis Apply topically to affected area 3 times a day. Apply to affected area 15 g 1 04/18/2023 Active Furosemide 20 MG Oral Tablet (Lasix)Indications:HT N, goal below 140/90,Coronary artery disease involving [place] de[place] heart without angina pectoris, unspecified vessel or [...] MEALS 180 Tablet 3 08/29/2023 Active Pen [place] 32G X 4 MMIndications:Type 2 diabetes mellitus [...] DINNER 90 Tablet 1 02/01/2024 Active Tiotropium [place]-Olodaterol 2.5-2.5 MCG/ACT Inhalation Aerosol Solution (Stiolto Respimat)Indications: [...] as of this encounter (statuses as of 05/30/2024) Active Problems Problem Noted Date Diagnosed Date [...] (coronary artery disease) 07/07/2012 Overview: STENT 2007 [facility], [place] 2004 HTN, goal below 140/90 04/10/2012 Overview: Per HTN Protocol #27. ADVANCE DIRECTIVE INFORMATION 03/19/2010 Overview: Information offered-patient declined. Type 2 diabetes mellitus wit h hemoglobin A1c goal of less than 8.0% 08/06/2009 Overview: Per Lipid Taxonomy. ICD-10 update of inactive term Old myocardial infarct 03/13/2009 Overview: INFEROLATERAL [place] 2004 Chronic rhinitis 10/07/2008 Gastroparesis 04/27/2007 Sarcoidosis 05/12/2005 Overview: DX 2004 EGD showing nonnecrotizing granuloma stomach + wt loss. Saw pulm. FAMILY HX-GI MALIGNANCY 02/09/2005 documented as of this encounter (statuses as of 05/30/2024) Resolved Problems Problem Noted Date Diagnosed Date Resolved Date Coronary artery disease invo lving k[place]sel dehe w[place] coronary artery of k[place] de[place] heart with unstable angina pectoris 09/05/2019 08/06/2021 [...] myocardial infarction 03/13/2009 Overview: Modified by Acute [place] Protocol #5. Major depressive disorder, r ecurrent episode, moderate 06/13/2013 documented as of this encounter (statuses as of 05/30/2024) Immunizations Name Administration Dates Next Due COVID-19 mRNA, LNP-s, No Pre serve, 2-Dose Series (Moderna) 10/27/2020,09/29/2020 COVID-19, LNP-s, No Preserve , Klaus-sucrose, Ages 12+ (Pfizer) 03/17/2022 COVID-19, MRNA-LNP, 23-24, P F, 30 MCG/0.3 mL, 12 YRS AND ABOVE, IM ([employer]-Comirnaty) 06/07/2023 COVID-19, MRNA-LNP, 24-25, P R, 30MCG/0.3ML, IM, 12YRS AND ABOVE (Obeo-Comirnaty) 05/29/2024 COVID-19, mRNA, LNP-s, PF, B ooster, [...] 06/04/2024 11:00 AM EDT Office Visit Orthopaedics [facility] [address] [place] [address] Bill Reilly MD [address] [place] [address] 06/06/2024 8:00 AM EDT Telemedicine Psychiatry, [facility] [address] [place] [address] Pedro Luis Casas CRNP [address] [place] [address] 06/28/2024 8:40 AM EST Immunization Ancillary [facility] [address] [place] [address] [facility] [address] [place] [address] 06/28/2024 9:30 AM EST Office Visit Cardiology, [facility] [address] [place] [address] Markell Brooks PAEddyC [address] [place] [address] 07/24/2024 10:00 AM EST Office Visit Pharmacy, [facility] 132 [facility] [place] [address] [facility] [place] [address] [facility] [place] [address] 08/28/2024 9:00 AM EST Office Visit Rheumatology [address] [place] [address] Matthew Mari MD [address] [place] [address] [place] [address] 08/28/2024 9:30 AM EST Imaging Radiology [facility] [address] [facility] [place] [address] 09/17/2024 11:30 AM EST Office Visit Hematology/Oncology [facility] [address] [place] [phone] Angela Renteria CRNP [address] [place] [address] [place] [address] 10/08/2024 9:00 AM EST Office Visit Dermatology [facility] [place] [address] [place] [address] Justyna Krishnamurthy PA-C [address] [place] [address] 11/19/2024 9:20 AM EDT Office Visit Hepatology, [facility] 132 [facility] [place] [address] Lali Chowdhury DO 132 [facility] [place] [address] 11/20/2024 7:00 AM EDT Office Visit Neurology [facility] [address] [place] [address] Kendra Montano PA-C [address] [place] [address] 05/31/2025 9:20 AM EDT Office Visit Family Practice [facility] 132 [facility] [place] [address] Brent Smith MD 132 [facility] [place] [address] Health Maintenance Due Date Last Done Comments Cologuard 1995 Sigmoidoscopy 1995 Fecal Occult Blood Test 01/20/2013 06/01/20 12, 10/07/2000, 10/05/1996 DISCUSS TOBACCO CESSATION (REFER TO SMARTSET #3291) 05/10/2018 05/10/2017 (Discussed) Mammogram 12/10/2023 12/09/2022, 11/21, 08/20/2021, Additional history exists Influenza Vaccine (FLU shot) (#1) 2024 05/06/2023, 05/13/2022, 06/16/2021, Additional history exists Diabetic Eye Exam 06/30/2024 06/30/2023, (Done elsewhere), 06/30/2023, Additional history exists Albumin/Creatinine Ratio 08/05/2024 023, 05/06/2023, 07/10/2022, Additional history exists CKD PHOS USE SMARTSET 43018 08/05/202407/22, 08/09/2022, 08/06/2021, Additional history exists Diabetic Foot Exam 08/05/2024 08/05/2023, 1 09/18/2021, 09/04/2021, Additional history exists GFR 11/07/2024 05/10/2024, 06/0 02/2024, 10/25/2023, Additional history exists HbA1c 11/07/2024 05/10/2024, 06/0 02/2024, 10/25/2023, Additional history exists O2 ASSESSMENT COMPLETED IN PAST YEAR FOR COPD 11/30/2024 12/01/2023 B-12 12/14/2024 12/15/2023, 05/22, 11/12/2022, Additional history exists Adult Wellness Visit 03/27/2025 03/27/2024, 10/21/19 CKD HGB USE SMARTSET 08148 05/10/202505/10, 05/10/2024, 03/12/2024, Additional history exists Depression [...] Documents on File Type Date Recorded 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 Care Teams Build Master Relationship Specialty Start Date End Date Brent Smith MD [address] [place] [address] PCP - General Family Medicine 04/20/23 documented as of this encounter
--- OUTSIDE RECORDS SUMMARY | 2024-08-09 14:40 | External Medical Summary | Summary of Care ---
Author Name Unknown Organization [facility] Address [address] [facility] [address] Phone [phone] Care Team Providers Care Multi Mission Helicopter Aircrewman Name Role Phone Brent Smith MD Primary [...] 90 Tablet 3 04/01/2023 Active Nystatin-Triamcinolon e 438807-6.1 UNIT/GM-% External Ointment (Mycolog)Indications: Dermatitis Apply topically to affected area 3 times a day. Apply to affected area 15 g 1 04/18/2023 Active Furosemide 20 MG Oral Tablet (Lasix)Indications:HT N, goal below 140/90,Coronary artery disease involving [place] heart without angina pectoris, unspecified vessel or [...] MEALS 180 Tablet 3 08/29/2023 Active Pen [place] 32G X 4 MMIndications:Type 2 diabetes mellitus [...] DINNER 90 Tablet 1 02/01/2024 Active Tiotropium [place]-Olodaterol 2.5-2.5 MCG/ACT Inhalation Aerosol Solution (Stiolto Respimat)Indications: [...] stenosis. Had C5-6 b/l NATAN 03/10 colon @[facility]--WNL angie 10y 03/07 MRI lumbar some [...] (coronary artery disease) 07/07/2012 Overview: STENT 2007 [facility] [place] 2004 HTN, goal below 140/90 04/10/2012 Overview: Per HTN Protocol #27. ADVANCE DIRECTIVE INFORMATION 03/19/2010 Overview: Information offered-patient declined. Type 2 diabetes mellitus wit h hemoglobin A1c goal of less than 8.0% 08/06/2009 Overview: Per Lipid Taxonomy. ICD-10 update of inactive term Old myocardial infarct 03/13/2009 Overview: INFEROLATERAL [place] 2004 Chronic rhinitis 10/07/2008 Gastroparesis 04/27/2007 Sarcoidosis 05/12/2005 Overview: DX 2004 EGD showing nonnecrotizing granuloma stomach + wt loss. Saw pulm. FAMILY HX-GI MALIGNANCY 02/09/2005 documented as of this encounter (statuses as of 05/30/2024) Resolved Problems Problem Noted Date Diagnosed Date Resolved Date Coronary artery disease invo lving [place] coronary artery of [place] heart with unstable angina pectoris 09/05/2019 08/06/2021 [...] MCG/0.3 mL, 12 YRS AND ABOVE, IM ([employer]-Comirnaty) 06/07/2023 COVID-19, MRNA-LNP, 24-25, P R, 30MCG/0.3ML, IM, 12YRS AND ABOVE ([employer]-Comirnaty) 05/29/2024 COVID-19, mRNA, LNP-s, PF, B ooster, [...] 06/04/2024 11:00 AM EDT Office Visit Orthopaedics [facility] [address] [place] [address] Bill Reilly MD [address] [place] [address] 06/06/2024 8:00 AM EDT Telemedicine Psychiatry, [facility] [address] [place] [address] Pedro Luis Casas CRNP [address] [place] [address] 06/28/2024 8:40 AM EST Immunization Ancillary [facility] [address] [place] [address] [facility] [address] [place] [address] 06/28/2024 9:30 AM EST Office Visit Cardiology, [facility] [address] [place] [address] Markell Brooks PAEddyC [address] [place] [address] 07/24/2024 10:00 AM EST Office Visit Pharmacy, [facility] 132 [facility] [place] [address] [facility] [place] [address] [facility] [place] [address] 08/28/2024 9:00 AM EST Office Visit Rheumatology [address] [place] [address] Matthew Mari MD [address] [place] [address] [place] [address] 08/28/2024 9:30 AM EST Imaging Radiology [facility] 1st [facility] 132 [facility] [place] [address] 09/17/2024 11:30 AM EST Office Visit Hematology/Oncology [facility] [address] [place] [phone] Angela Renteria CRNP [address] [place] [address] [place] [address] 10/08/2024 9:00 AM EST Office Visit Dermatology [facility] [place] [address] [place] [address] Justyna Krishnamurthy PA-C [address] [place] [address] 11/19/2024 9:20 AM EDT Office Visit Hepatology, [facility] 132 [facility] [place] [address] Lali Chowdhury DO 132 [facility] [place] [address] 11/20/2024 7:00 AM EDT Office Visit Neurology [facility] [address] [place] [address] Kendra Montano PA-C [address] [place] [address] 05/31/2025 9:20 AM EDT Office Visit Family Practice [facility] 132 [facility] [place] [address] Brent Smith MD 132 [facility] [place] [address] Health Maintenance Due Date Last Done Comments [...] Additional history exists CKD PHOS USE SMARTSET 76821 08/05/202407/22, 08/09/2022, 08/06/2021, Additional history exists Diabetic Foot Exam 08/05/2024 08/05/2023, 1 09/18/2021, 09/04/2021, Additional history exists GFR 11/07/2024 05/10/2024, 06/0 02/2024, 10/25/2023, Additional history exists HbA1c 11/07/2024 05/10/2024, 06/0 02/2024, 10/25/2023, Additional history exists O2 ASSESSMENT COMPLETED IN PAST YEAR FOR COPD 11/30/2024 12/01/2023 B-12 12/14/2024 12/15/2023, 05/22, 11/12/2022, Additional history exists Adult Wellness Visit 03/27/2025 03/27/2024, 10/21/19 CKD HGB USE SMARTSET 87273 05/10/202505/10, 05/10/2024, 03/12/2024, Additional history exists Depression [...] Documents on File Type Date Recorded 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 Care Teams Multi Mission Helicopter Aircrewman Relationship Specialty Start Date End Date Brent Smith MD [address] [place] [address] PCP - General Family Medicine 04/20/23 documented as of this encounter
--- OUTSIDE RECORDS SUMMARY | 2024-08-09 14:40 | External Medical Summary | Summary of Care ---
Author Name Unknown Organization [facility] Address [address] [facility] [address] Phone [phone] Care Team Providers Care Hoister Name Role Phone Brent Smith MD Primary [...] 90 Tablet 3 04/01/2023 Active Nystatin-Triamcinolon e 792891-9.1 UNIT/GM-% External Ointment (Mycolog)Indications: Dermatitis Apply topically to affected area 3 times a day. Apply to affected area 15 g 1 04/18/2023 Active Furosemide 20 MG Oral Tablet (Lasix)Indications:HT N, goal below 140/90,Coronary artery disease involving council heart without angina pectoris, unspecified vessel or [...] MEALS 180 Tablet 3 08/29/2023 Active Pen [place] 32G X 4 MMIndications:Type 2 diabetes mellitus [...] DINNER 90 Tablet 1 02/01/2024 Active Tiotropium [place]-Olodaterol 2.5-2.5 MCG/ACT Inhalation Aerosol Solution (Stiolto Respimat)Indications: [...] stenosis. Had C5-6 b/l NATAN 03/10 colon @[facility]--WNL angie 10y 03/07 MRI lumbar some [...] disease) 07/07/2012 Overview: STENT 2007 [facility], [place] 2004 HTN, goal below 140/90 04/10/2012 Overview: Per HTN Protocol #27. ADVANCE DIRECTIVE INFORMATION 03/19/2010 Overview: Information offered-patient declined. Type 2 diabetes mellitus wit h hemoglobin A1c goal of less than 8.0% 08/06/2009 Overview: Per Lipid Taxonomy. ICD-10 update of inactive term Old myocardial infarct 03/13/2009 Overview: INFEROLATERAL [place] 2004 Chronic rhinitis 10/07/2008 Gastroparesis 04/27/2007 Sarcoidosis 05/12/2005 Overview: DX 2004 EGD showing nonnecrotizing granuloma stomach + wt loss. Saw pulm. FAMILY HX-GI MALIGNANCY 02/09/2005 documented as of this encounter (statuses as of 05/30/2024) Resolved Problems Problem Noted Date Diagnosed Date Resolved Date Coronary artery disease invo lving council coronary artery of council heart with unstable angina pectoris 09/05/2019 08/06/2021 [...] myocardial infarction 03/13/2009 Overview: Modified by Acute [place] Protocol #5. Major depressive disorder, r ecurrent episode, moderate 06/13/2013 documented as of this encounter (statuses as of 05/30/2024) Immunizations Name Administration Dates Next Due COVID-19 mRNA, LNP-s, No Pre serve, 2-Dose Series (Moderna) 10/27/2020,09/29/2020 COVID-19, LNP-s, No Preserve , Klaus-sucrose, Ages 12+ (Pfizer) 03/17/2022 COVID-19, MRNA-LNP, 23-24, P F, 30 MCG/0.3 mL, 12 YRS AND ABOVE, IM ([employer]-Comirnaty) 06/07/2023 COVID-19, MRNA-LNP, 24-25, P R, 30MCG/0.3ML, IM, 12YRS AND ABOVE ([employer]-Comirnaty) 05/29/2024 COVID-19, mRNA, LNP-s, PF, B ooster, [...] 06/04/2024 11:00 AM EDT Office Visit Orthopaedics [facility] [address] [place] [address] Bill Reilly MD [address] [place] [address] 06/06/2024 8:00 AM EDT Telemedicine Psychiatry, [facility] [address] [place] [address] Pedro Luis Casas CRNP [address] [place] [address] 06/28/2024 8:40 AM EST Immunization Ancillary [facility] [address] [place] [address] [facility] [address] [place] [address] 06/28/2024 9:30 AM EST Office Visit Cardiology, [facility] [address] [place] [address] Markell Brooks PAEddyC [address] [place] [address] 07/24/2024 10:00 AM EST Office Visit Pharmacy, [facility] 132 [facility] [place] [address] [facility] [place] [address] [facility] [place] [address] 08/28/2024 9:00 AM EST Office Visit Rheumatology [address] [place] [address] Matthew Mari MD [address] [place] [address] [place] [address] 08/28/2024 9:30 AM EST Imaging Radiology [facility]st [facility] 132 [facility] [place] [address] 09/17/2024 11:30 AM EST Office Visit Hematology/Oncology [facility] [address] [place] [phone] Angela Renteria CRNP [address] [place] [address] [place] [address] 10/08/2024 9:00 AM EST Office Visit [facility] [place] [address] [place] [address] Justyna Krishnamurthy PA-C [address] [place] [address] 11/19/2024 9:20 AM EDT Office Visit Hepatology, [facility] 132 [facility] [place] [address] Lali Chowdhury DO 132 [facility] [place] [address] 11/20/2024 7:00 AM EDT Office Visit Neurology [facility] [address] [place] [address] Kendra Montano PA-C [address] [place] [address] 05/31/2025 9:20 AM EDT Office Visit Family Practice [facility] 132 [facility] [place] [address] Brent Smith MD 132 [facility] [place] [address] Health Maintenance Due Date Last Done Comments [...] Additional history exists CKD PHOS USE SMARTSET 43547 08/05/202407/22, 08/09/2022, 08/06/2021, Additional history exists Diabetic Foot Exam 08/05/2024 08/05/2023, 1 09/18/2021, 09/04/2021, Additional history exists GFR 11/07/2024 05/10/2024, 06/0 02/2024, 10/25/2023, Additional history exists HbA1c 11/07/2024 05/10/2024, 06/0 02/2024, 10/25/2023, Additional history exists O2 ASSESSMENT COMPLETED IN PAST YEAR FOR COPD 11/30/2024 12/01/2023 B-12 12/14/2024 12/15/2023, 05/22, 11/12/2022, Additional history exists Adult Wellness Visit 03/27/2025 03/27/2024, 10/21/19 CKD HGB USE SMARTSET 11955 05/10/202505/10, 05/10/2024, 03/12/2024, Additional history exists Depression [...] Documents on File Type Date Recorded 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 Care Teams Hoister Relationship Specialty Start Date End Date Brent Smith MD [address] [place] [address] PCP - General Family Medicine 04/20/23 documented as of this encounter
--- OUTSIDE RECORDS SUMMARY | 2024-08-09 14:40 | External Medical Summary | Summary of Care ---
Author Name Unknown Organization [facility] Address [address] [address] Phone [phone] Care Team Providers Care Art Museum Aide Name Role Phone Brent Smith MD Primary [...] 90 Tablet 3 04/01/2023 Active Nystatin-Triamcinolon e 822355-4.1 UNIT/GM-% External Ointment (Mycolog)Indications: Dermatitis Apply topically to affected area 3 times a day. Apply to affected area 15 g 1 04/18/2023 Active Furosemide 20 MG Oral Tablet (Lasix)Indications:HT N, goal below 140/90,Coronary artery disease involving soboba heart without angina pectoris, unspecified vessel or [...] MEALS 180 Tablet 3 08/29/2023 Active Pen [place] 32G X 4 MMIndications:Type 2 diabetes mellitus [...] DINNER 90 Tablet 1 02/01/2024 Active Tiotropium Clinton-Olodaterol 2.5-2.5 MCG/ACT Inhalation Aerosol Solution (Stiolto Respimat)Indications: [...] C5-6 b/l NATAN 03/10 colon [facility]--WNL angie 10y 03/07 MRI lumbar some [...] artery disease) 07/07/2012 Overview: STENT 2007 [facility], [place] 2004 HTN, goal below 140/90 04/10/2012 Overview: Per HTN Protocol #27. ADVANCE DIRECTIVE INFORMATION 03/19/2010 Overview: Information offered-patient declined. Type 2 diabetes mellitus wit h hemoglobin A1c goal of less than 8.0% 08/06/2009 Overview: Per Lipid Taxonomy. ICD-10 update of inactive term Old myocardial infarct 03/13/2009 Overview: INFEROLATERAL [place] 2004 Chronic rhinitis 10/07/2008 Gastroparesis 04/27/2007 Sarcoidosis 05/12/2005 Overview: DX 2004 EGD showing nonnecrotizing granuloma stomach + wt loss. Saw pulm. FAMILY HX-GI MALIGNANCY 02/09/2005 documented as of this encounter (statuses as of 05/30/2024) Resolved Problems Problem Noted Date Diagnosed Date Resolved Date Coronary artery disease invo lving soboba coronary artery of soboba heart with unstable angina pectoris 09/05/2019 08/06/2021 [...] myocardial infarction 03/13/2009 Overview: Modified by Acute [place] Protocol #5. Major depressive disorder, r ecurrent episode, moderate 06/13/2013 documented as of this encounter (statuses as of 05/30/2024) Immunizations Name Administration Dates Next Due COVID-19 mRNA, LNP-s, No Pre serve, 2-Dose Series (Moderna) 10/27/2020,09/29/2020 COVID-19, LNP-s, No Preserve , Klaus-sucrose, Ages 12+ (Pfizer) 03/17/2022 COVID-19, MRNA-LNP, 23-24, P F, 30 MCG/0.3 mL, 12 YRS AND ABOVE, IM (GetOutfitted-Comirnaty) 06/07/2023 COVID-19, MRNA-LNP, 24-25, P R, 30MCG/0.3ML, IM, 12YRS AND ABOVE (HOMETRAX-Comirnaty) 05/29/2024 COVID-19, mRNA, LNP-s, PF, B ooster, [...] 06/04/2024 11:00 AM EDT Office Visit Orthopaedics [facility] [address] [place] [address] Bill Reilly MD [address] [place] [address] 06/06/2024 8:00 AM EDT Telemedicine Psychiatry, [facility] [address] [place] [address] Pedro Luis Casas CRNP [address] [place] [address] 06/28/2024 8:40 AM EST Immunization Ancillary [facility] [address] [place] [address] [facility] [address] [place] [address] 06/28/2024 9:30 AM EST Office Visit Cardiology, [facility] [address] [place] [address] Markell Brooks PAEddyC [address] [place] [address] 07/24/2024 10:00 AM EST Office Visit Pharmacy, [facility] 132 [facility] [place] [address] [facility] [place] [address] [facility] [place] [address] 08/28/2024 9:00 AM EST Office Visit Rheumatology [address] [place] [address] Matthew Mari MD [address] [place] [address] [place] [address] 08/28/2024 9:30 AM EST Imaging Radiology [facility] 132 [facility] [place] [address] 09/17/2024 11:30 AM EST Office Visit Hematology/Oncology [facility] [address] [place] [phone] Angela Renteria CRNP [address] [place] [address] [place] [address] 10/08/2024 9:00 AM EST Office Visit Dermatology [facility], [place] [address] [place] [address] Justyna Krishnamurthy PA-C [address] [place] [address] 11/19/2024 9:20 AM EDT Office Visit Hepatology, [facility] 132 [facility] [place] [address] Lali Chowdhury DO 132 [facility] [place] [address] 11/20/2024 7:00 AM EDT Office Visit Neurology [facility] [address] [place] [address] Kendra Montano PA-C [address] [place] [address] 05/31/2025 9:20 AM EDT Office Visit Family Practice [facility] 132 [facility] [place] [address] Brent Smith MD 132 [facility] [place] [address] Health Maintenance Due Date Last Done Comments [...] Additional history exists CKD PHOS USE SMARTSET 85872 08/05/202407/22, 08/09/2022, 08/06/2021, Additional history exists Diabetic Foot Exam 08/05/2024 08/05/2023, 1 09/18/2021, 09/04/2021, Additional history exists GFR 11/07/2024 05/10/2024, 06/0 02/2024, 10/25/2023, Additional history exists HbA1c 11/07/2024 05/10/2024, 06/0 02/2024, 10/25/2023, Additional history exists O2 ASSESSMENT COMPLETED IN PAST YEAR FOR COPD 11/30/2024 12/01/2023 B-12 12/14/2024 12/15/2023, 05/22, 11/12/2022, Additional history exists Adult Wellness Visit 03/27/2025 03/27/2024, 10/21/19 CKD HGB USE SMARTSET 56646 05/10/202505/10, 05/10/2024, 03/12/2024, Additional history exists Depression [...] on File Type Date Recorded 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 Care Teams Art Museum Aide Relationship Specialty Start Date End Date Brent Smith MD [address] [place] [address] PCP - General Family Medicine 04/20/23 documented as of this encounter
--- OUTSIDE RECORDS SUMMARY | 2024-08-09 14:40 | External Medical Summary | Summary of Care ---
Author Name Unknown Organization [facility] Address [address] [address] Phone [phone] Care Team Providers Care Cotton Agent Name Role Phone Brent Smith MD Primary [...] 90 Tablet 3 04/01/2023 Active Nystatin-Triamcinolon e 570643-9.1 UNIT/GM-% External Ointment (Mycolog)Indications: Dermatitis Apply topically to affected area 3 times a day. Apply to affected area 15 g 1 04/18/2023 Active Furosemide 20 MG Oral Tablet (Lasix)Indications:HT N, goal below 140/90,Coronary artery disease involving ottawa heart without angina pectoris, unspecified vessel or [...] MEALS 180 Tablet 3 08/29/2023 Active Pen Alpha 32G X 4 MMIndications:Type 2 diabetes mellitus [...] DINNER 90 Tablet 1 02/01/2024 Active Tiotropium Lohman-Olodaterol 2.5-2.5 MCG/ACT Inhalation Aerosol Solution (Stiolto Respimat)Indications: [...] C5-6 b/l NATAN 03/10 colon @[facility]--WNL angie 10y 03/07 MRI [...] disease) 07/07/2012 Overview: STENT 2007 [facility] [place] 2004 HTN, goal below 140/90 04/10/2012 Overview: Per HTN Protocol #27. ADVANCE DIRECTIVE INFORMATION 03/19/2010 Overview: Information offered-patient declined. Type 2 diabetes mellitus wit h hemoglobin A1c goal of less than 8.0% 08/06/2009 Overview: Per Lipid Taxonomy. ICD-10 update of inactive term Old myocardial infarct 03/13/2009 Overview: INFEROLATERAL [place] 2004 Chronic rhinitis 10/07/2008 Gastroparesis 04/27/2007 Sarcoidosis 05/12/2005 Overview: DX 2004 EGD showing nonnecrotizing granuloma stomach + wt loss. Saw pulm. FAMILY HX-GI MALIGNANCY 02/09/2005 documented as of this encounter (statuses as of 05/30/2024) Resolved Problems Problem Noted Date Diagnosed Date Resolved Date Coronary artery disease invo lving ottawa coronary artery of ottawa heart with unstable angina pectoris 09/05/2019 08/06/2021 [...] myocardial infarction 03/13/2009 Overview: Modified by Acute [place] Protocol #5. Major depressive disorder, r ecurrent episode, moderate 06/13/2013 documented as of this encounter (statuses as of 05/30/2024) Immunizations Name Administration Dates Next Due COVID-19 mRNA, LNP-s, No Pre serve, 2-Dose Series (Moderna) 10/27/2020,09/29/2020 COVID-19, LNP-s, No Preserve , Klaus-sucrose, Ages 12+ (Pfizer) 03/17/2022 COVID-19, MRNA-LNP, 23-24, P F, 30 MCG/0.3 mL, 12 YRS AND ABOVE, IM (Innovate/Protect-Comirnaty) 06/07/2023 COVID-19, MRNA-LNP, 24-25, P R, 30MCG/0.3ML, IM, 12YRS AND ABOVE (OpenGov Solutions-Comirnaty) 05/29/2024 COVID-19, mRNA, LNP-s, PF, B ooster, [...] 06/04/2024 11:00 AM EDT Office Visit Orthopaedics [facility] [address] [place] [address] Bill Reilly MD [address] [place] [address] 06/06/2024 8:00 AM EDT Telemedicine Psychiatry, [facility] [address] [place] [address] Pedro Luis Casas CRNP [address] [place] [address] 06/28/2024 8:40 AM EST Immunization Ancillary [facility] [address] [place] [address] [facility] [address] [place] [address] 06/28/2024 9:30 AM EST Office Visit Cardiology, [facility] [address] [place] [address] Markell Brooks PAEddyC [address] [place] [address] 07/24/2024 10:00 AM EST Office Visit Pharmacy, [facility] 132 [facility] [place] [address] [facility] [place] [address] [facility] [place] [address] 08/28/2024 9:00 AM EST Office Visit Rheumatology [address] [place] [address] Matthew Mari MD [address] [place] [address] [place] [address] 08/28/2024 9:30 AM EST Imaging Radiology [facility] 1st [facility] 132 [facility] [place] [address] 09/17/2024 11:30 AM EST Office Visit Hematology/Oncology [facility] [address] [place] [phone] Angela Renteria CRNP [address] [place] [address] [place] [address] 10/08/2024 9:00 AM EST Office Visit Dermatology [facility], [place] [address] [place] [address] Justyna Krishnamurthy PA-C [address] [place] [address] 11/19/2024 9:20 AM EDT Office Visit Hepatology, [facility] 132 [facility] [place] [address] Lali Chowdhury DO 132 [facility] [place] [address] 11/20/2024 7:00 AM EDT Office Visit Neurology [facility] [address] [place] [address] Kendra Montano PA-C [address] [place] [address] 05/31/2025 9:20 AM EDT Office Visit Family Practice [facility] 132 [facility] [place] [address] Brent Smith MD 132 [facility] [place] [address] Health Maintenance Due Date Last Done Comments [...] Additional history exists CKD PHOS USE SMARTSET 19807 08/05/202407/22, 08/09/2022, 08/06/2021, Additional history exists Diabetic Foot Exam 08/05/2024 08/05/2023, 1 09/18/2021, 09/04/2021, Additional history exists GFR 11/07/2024 05/10/2024, 06/0 02/2024, 10/25/2023, Additional history exists HbA1c 11/07/2024 05/10/2024, 06/0 02/2024, 10/25/2023, Additional history exists O2 ASSESSMENT COMPLETED IN PAST YEAR FOR COPD 11/30/2024 12/01/2023 B-12 12/14/2024 12/15/2023, 05/22, 11/12/2022, Additional history exists Adult Wellness Visit 03/27/2025 03/27/2024, 10/21/19 CKD HGB USE SMARTSET 51111 05/10/202505/10, 05/10/2024, 03/12/2024, Additional history exists Depression [...] Documents on File Type Date 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 Care Teams Cotton Agent Relationship Specialty Start Date End Date Brent Smith MD [address] [place] [address] PCP - General Family Medicine 04/20/23 documented as of this encounter
--- OUTSIDE RECORDS SUMMARY | 2024-08-09 14:40 | External Medical Summary | Summary of Care ---
Author Name Unknown Organization [facility] Address [address] [facility] [place] [address] Phone [phone] Care Team Providers Care Foreign Banknote Teller Name Role Phone Brent Smith MD Primary Care Provider + Reason for Visit * Reason Comments Follow Up L hand Encounter Details Date Type Department Care Team (Late st Contact Info) Description 06/04/2024 11:00 AM EDT Office Visit Orthopaedics [facility] [address] [place] [address] Bill Reilly MD [address] [place] [address] Dupuytren's disease of palm of left hand*; [...] 90 Tablet 3 04/01/2023 Active Nystatin-Triamcinolon e 181797-5.1 UNIT/GM-% External Ointment (Mycolog)Indications: Dermatitis Apply topically to affected area 3 times a day. Apply to affected area 15 g 1 04/18/2023 Active Furosemide 20 MG Oral Tablet (Lasix)Indications:HT N, goal below 140/90,Coronary artery disease involving newtok heart without angina pectoris, unspecified vessel or [...] MEALS 180 Tablet 3 08/29/2023 Active Pen Dudley 32G X 4 MMIndications:Type 2 diabetes mellitus [...] ([facility]) Use to test blood sugar twice daily [...] DINNER 90 Tablet 1 02/01/2024 Active Tiotropium Indore-Olodaterol 2.5-2.5 MCG/ACT Inhalation Aerosol Solution (Stiolto Respimat)Indications: [...] stenosis. Had C5-6 b/l NATAN 03/10 colon @[facility]--WNL angie 10y 03/07 MRI lumbar some [...] artery disease) 07/07/2012 Overview: STENT 2007 [facility], [place] 2004 HTN, goal below 140/90 04/10/2012 Overview: Per HTN Protocol #27. ADVANCE DIRECTIVE INFORMATION 03/19/2010 Overview: Information offered-patient declined. Type 2 diabetes mellitus wit h hemoglobin A1c goal of less than 8.0% 08/06/2009 Overview: Per Lipid Taxonomy. ICD-10 update of inactive term Old myocardial infarct 03/13/2009 Overview: INFEROLATERAL [place] 2003 Chronic rhinitis 10/07/2008 Gastroparesis 04/27/2007 Sarcoidosis 05/12/2005 Overview: DX 2004 EGD showing nonnecrotizing granuloma stomach + wt loss. Saw pulm. FAMILY HX-GI MALIGNANCY 02/09/2005 documented as of this encounter (statuses as of 06/04/2024) Resolved Problems Problem Noted Date Diagnosed Date Resolved Date Coronary artery disease invo lving newtok coronary artery of newtok heart with unstable angina pectoris 09/05/2019 08/06/2021 [...] myocardial infarction 03/13/2009 Overview: Modified by Acute [place] Protocol #5. Major [...] No 05/18/2023 Does the household have a presbyterian kaseman hospitallar source of income? (Household - for [...] fingers HPI: The patient is a 73-year-old tzorq-ieik-pyclxsak type 2 diabetic female who presents today [...] ASCVD (arteriosclerotic cardiovascular disease) 07/07/2012 STENT 2007 [place], [place] 2003 Autoimmune hepatitis (HCC) 05/06/2023 CAD (coronary artery disease) 07/07/2012 STENT 2007 [place] 2003 Cervical disc disorder 04/23/2014 Chronic [...] intractable 09/23/2015 Old myocardial infarct 03/13/2009 INFEROLATERAL [place] 2003 LUISA (obstructive sleep apnea) 10/13/2017 S/P [...] CARDIAC CATH-CARDIOLOGY ONLY 10/17/2018 2 stents LAD @[facility]. Dr Morales CARDIAC CATH-CARDIOLOGY ONLY 01/29/2019 drug eluiting stent LAD at [facility] CARPAL TUNNEL SURGERY Bilateral Carpal Tunnel repair COLONOSCOPY THRU STOMA, W/BIOPSY 06/15/2007 hyperplastic, repeat in 10 years COLONOSCOPY, DIAGNOSTIC (RECTUM) 05/15/2012 COLONOSCOPY FLEXIBLE PROXIMAL DIAGNOSTIC performed by Robina Lozoya DO at ENDOSCOPY [facility],HYPERPLASTIC POLYPS REPEAT COLONOSCOPY IN 5 YEARS COLONOSCOPY, DIAGNOSTIC (RECTUM) 07/12/2016 tortuous colon, diverticulosis, repeat 5 yrs/[facility] COLONOSCOPY, DIAGNOSTIC (RECTUM) 12/01/2023 sigmoid diverticulosis/COLONOSCOPY FLEXIBLE PROXIMAL DIAGNOSTIC performed by Zenobia Costa MD at ENDOSCOPY [facility] EGD, FLEXIBLE, DIAGNOSTIC 07/12/2016 normal bx/[facility] EGD, FLEXIBLE, DIAGNOSTIC 11/18/2022 biopsies normal/ESOPHAGOGASTRODUODENOSCOPY (EGD), FLEXIBLE, TRANSORAL, DIAGNOSTIC performed by MD Marcial at ENDOSCOPY [facility] EGD, FLEXIBLE, DIAGNOSTIC 12/01/2023 normal/ESOPHAGOGASTRODUODENOSCOPY (EGD), FLEXIBLE, TRANSORAL, DIAGNOSTIC performed by Zenobia Costa MD at ENDOSCOPY [facility] EGD, W/ENDOSCOPIC US 11/29/2012 UPPER GI ENDOSCOPY ENDOSCOPIC ULTRASOUND performed [facility]: benign polyp to stomach EGD, W/ENDOSCOPIC US 01/25/2023 mild liver fibrosis, GB sludge / ESOPHAGOGASTRODUODENOSCOPY (EGD), FLEXIBLE, TRANSORAL, ENDOSCOPIC ULTRASOUND performed by Miguel Ruff MD at ENDOSCOPY [facility] INFORMATION Laparoscopy X3 KNEE ARTHROSCOPY, DIAGNOSTIC Right Knee Scope,Diagnostic MISCELLANEOUS ORDER ([facility] ONLY) 05/19/2016 NATAN L5-s1 Dr Leija [facility] OTHER Bilateral 02/09/2021 b/l C5-6 NATAN at [facility] in [facility] REMOVE TONSILS & ADENOIDS, UNDER 12 SMALL BOWEL ENDOSCOPY W/BX 03/2007 TENDON SHEATH INCISION, FINGER Right 11/28/2017 TRIGGER FINGER RELEASE performed by Marcelo Arnold DO at [facility] TENDON SHEATH INCISION, FINGER Left 09/21/2023 LEFT TRIGGER FINGER RELEASE performed by Bill Reilly MD at [facility] TOTAL HYSTERECTOMY VALARIE (Total Abdominal Hysterectomy) FAMILY [...] Sister quynh heart attack Mental Disorder Sister uqynh depression, anxiety Gastro-intestinal disorder Sister quynh reflux Hypertension Sister marco Arthritis Sister marco Alcohol and Other Disorders Associated Sister marco Heart Disorder Sister marco heart attack Mental Disorder Sister marco depression, anxiety Diabetes Grandmother (Maternal) Chiqui Chaparro Stroke Grandmother (Paternal) Morena SOCIAL HISTORY: Social History Tobacco Use Smoking status: Every Day Current packs/day: 0.50 Average packs/day: 0.5 packs/day for 59.8 years (29.9 ttl pk-yrs) Types: Cigarettes Start date: 1964 Passive exposure: Past Smokeless tobacco: Never Tobacco comments: 2 ppd;08/19/21,tired to quit 8 times, x 2 [...] TABLET BEFORE BEDTIME 90 Tablet 3 Nystatin-Triamcinolone 852720-1.1 UNIT/GM-% External Ointment (Mycolog) Apply topically to affectedarea 3 times a day. Apply to affected area 15 g 1 Furosemide 20 MG Oral Tablet (Lasix) Take 1 Tablet by mouth in the morning. 90 Tablet 3 metFORMIN HCl 1000 MG Oral Tablet (Glucophage) TAKE 1 TABLET TWICE A DAY WITH MORNING AND EVENING MEALS 180 Tablet 3 Pen Dudley 32G X 4 MM Use as directed. [...] DAILY WITH DINNER 90 Tablet 1 Tiotropium Indore-Olodaterol 2.5-2.5 MCG/ACT Inhalation Aerosol Solution (Stiolto Respimat) [...] 24 hours. 15 Tablet 2 COVID-19 mRNA Vac-Klaus([email or web address]) 30 MCG/0.3ML Intramuscular Suspension Prefilled Syringe (BrandMe crowdmarketing) Inject into a large muscle. 0.3 mL [...] Description 06/06/2024 8:00 AM EDT [facility] [address] [place] [address] Pedro Luis Caass CRNP [address] [place] [address] 06/28/2024 8:40 AM EST Immunization Ancillary [facility] [address] [address] [facility] [address] [place] [address] 06/28/2024 9:30 AM EST [facility] [address] [place] [address] Markell Brooks PA-C [address] [place] [address] 07/24/2024 10:00 AM EST Office Visit Pharmacy, [facility] [place] [address] [facility] [place] [address] 08/28/2024 9:00 AM EST Office Visit Rheumatology [address] [place] [address] Matthew Mari MD [address] [place] [address] [place] [address] 08/28/2024 9:30 AM EST Imaging [facility] [place] [address] 08/28/2024 11:00 AM EST Office Visit Interventional Pain Center, [facility] 132 [facility] [place] [address] Zi Ramirez DO 132 [facility] [place] [phone] 09/17/2024 11:30 AM EST Office Visit Hematology/Oncology [facility] [address] [place] [phone] Angela Renteria, LEAD SALES CONSULTANT [address] [facility] [place] [address] 10/08/2024 9:00 AM EST Office Visit Dermatology [facility] [address] [facility] [place] [address] Justyna Krishnamurthy PA-C [address] [facility] [place] [address] 11/19/2024 9:20 AM EDT Office Visit Hepatology, [facility] 132 [facility] [place] [address] Lali Chowdhury DO [address] [place] [address] 11/20/2024 7:00 AM EDT Office Visit Neurology [facility] [address] [place] [address] Kendra Montano PA-C [address] [place] [address] 05/31/2025 9:20 AM EDT Office Visit Family Practice [facility] [address] [place] [address] Brent Smith MD [address] [place] [address] Scheduled Procedures Name Priority Associated Diagnoses Date/Ti [...] Additional history exists CKD PHOS USE SMARTSET 92885 08/05/202407/22, 08/09/2022, 08/06/2021, Additional history exists Diabetic Foot Exam 08/05/2024 08/05/2023, 1 09/18/2021, 09/04/2021, Additional history exists GFR 11/07/2024 05/10/2024, 06/0 02/2024, 10/25/2023, Additional history exists HbA1c 11/07/2024 05/10/2024, 06/0 02/2024, 10/25/2023, Additional history exists O2 ASSESSMENT COMPLETED IN PAST YEAR FOR COPD 11/30/2024 12/01/2023 B-12 12/14/2024 12/15/2023, 05/22, 11/12/2022, Additional history exists Adult Wellness Visit 03/27/2025 03/27/2024, 10/21/19 CKD HGB USE SMARTSET 39203 05/10/202505/10, 05/10/2024, 03/12/2024, Additional history exists Depression [...] Documents on File Type Date Recorded 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 Care Teams Foreign Banknote Teller Relationship Specialty Start Date End Date Brent Smith MD [address] [place] [address] PCP - General Family Medicine 04/20/23 documented as of this encounter
[2024-08-09] MEDS: ACETAMINOPHEN 325 MG TAB PO PRN (14:41)
--- OUTSIDE RECORDS SUMMARY | 2024-08-09 14:41 | External Medical Summary | Summary of Care ---
Author Name Unknown Organization [facility] Address [address] [facility] [address] Phone [phone] Care Team Providers Care Employment Clerk Name Role Phone Brent Smith MD [...] 90 Tablet 3 04/01/2023 Active Nystatin-Triamcinolon e 087194-2.1 UNIT/GM-% External Ointment (Mycolog)Indications: Dermatitis Apply topically to affected area 3 times a day. Apply to affected area 15 g 1 04/18/2023 Active Furosemide 20 MG Oral Tablet (Lasix)Indications:HT N, goal below 140/90,Coronary artery disease involving yurok heart without angina pectoris, unspecified vessel or [...] MEALS 180 Tablet 3 08/29/2023 Active Pen Davis 32G X 4 MMIndications:Type 2 diabetes mellitus [...] DINNER 90 Tablet 1 02/01/2024 Active Tiotropium [place]-Olodaterol 2.5-2.5 MCG/ACT Inhalation Aerosol Solution (Stiolto Respimat)Indications: [...] stenosis. Had C5-6 b/l NATAN 03/10 colon @[facility]--WNL angie 10y 03/07 MRI lumbar [...] (coronary artery disease) 07/07/2012 Overview: STENT 2007 [facility], [place] 2004 HTN, goal below [...] Resolved Date Coronary artery disease invo lving yurok coronary artery of yurok heart with unstable angina pectoris 09/05/2019 08/06/2021 [...] MCG/0.3 mL, 12 YRS AND ABOVE, IM ([employer]-Comirnaty) 06/07/2023 COVID-19, MRNA-LNP, 24-25, P R, 30MCG/0.3ML, IM, 12YRS AND ABOVE ([employer]-Comirnaty) 05/29/2024 COVID-19, mRNA, LNP-s, PF, B ooster, [...] 06/04/2024 11:00 AM EDT Office Visit Orthopaedics [facility] [address] [place] [address] Bill Reilly MD [address] [place] [address] 06/06/2024 8:00 AM EDT Telemedicine Psychiatry, [facility] [address] [place] [address] Pedro Luis Casas CRNP [address] [place] [address] 06/28/2024 8:40 AM EST Immunization Ancillary [facility] [address] [place] [address] [facility] [address] [place] [address] 06/28/2024 9:30 AM EST Office Visit Cardiology, [facility] [address] [place] [address] Markell Brooks PAEddyC [address] [place] [address] 07/24/2024 10:00 AM EST Office Visit Pharmacy, [facility] 132 [facility] [place] [address] [facility] [place] [address] [facility] [place] [address] 08/28/2024 9:00 AM EST Office Visit Rheumatology [address] [place] [address] Matthew Mari MD [address] [place] [address] [place] [address] 08/28/2024 9:30 AM EST Imaging Radiology [facility]st [facility] 132 [facility] [place] [address] 09/17/2024 11:30 AM EST Office Visit Hematology/Oncology [facility] [address] [place] [phone] Angela Renteria CRNP [address] [place] [address] [place] [address] 10/08/2024 9:00 AM EST Office Visit Dermatology [facility] [place] [address] [place] [address] Justyna Krishnamurthy PA-C [address] [place] [address] 11/19/2024 9:20 AM EDT Office Visit Hepatology, [facility] 132 [facility] [place] [address] Lali Chowdhury DO 132 [facility] [place] [address] 11/20/2024 7:00 AM EDT Office Visit Neurology [facility] [address] [place] [address] Kendra Montano PA-C [address] [facility] [place] [address] 05/31/2025 9:20 AM EDT Office Visit Family Practice [facility] 132 [facility] [place] [address] Brent Smith MD 132 [facility] [place] [address] Health Maintenance Due Date Last Done Comments [...] Additional history exists CKD PHOS USE SMARTSET 26444 08/05/202407/22, 08/09/2022, 08/06/2021, Additional history exists Diabetic Foot Exam 08/05/2024 08/05/2023, 1 09/18/2021, 09/04/2021, Additional history exists GFR 11/07/2024 05/10/2024, 06/0 02/2024, 10/25/2023, Additional history exists HbA1c 11/07/2024 05/10/2024, 06/0 02/2024, 10/25/2023, Additional history exists O2 ASSESSMENT COMPLETED IN PAST YEAR FOR COPD 11/30/2024 12/01/2023 B-12 12/14/2024 12/15/2023, 05/22, 11/12/2022, Additional history exists Adult Wellness Visit 03/27/2025 03/27/2024, 10/21/19 CKD HGB USE SMARTSET 91267 05/10/202505/10, 05/10/2024, 03/12/2024, Additional history exists Depression [...] Documents on File 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 Care Teams Employment Clerk Relationship Specialty Start Date End Date Brent Smith MD [address] [place] [address] PCP - General Family Medicine 04/20/23 documented as of this encounter
--- OUTSIDE RECORDS SUMMARY | 2024-08-09 14:41 | External Medical Summary | Summary of Care ---
Author Name Unknown Organization [facility] Address [address] [facility] [address] Phone [phone] Care Team Providers Care Bus Operator Name Role Phone Brent Smith MD Primary Care Provider + Reason for Visit * Reason Onset Date Comments Precert Approved 05/22/2024 [facility] Encounter Details Date Type Department Care Team (Late st Contact Info) Description 05/22/2024 Telephone Neurology [facility] [address] [place] [address] Ivy Rodrigues MD 200 [facility] [place] [address] Precert Approved ( [facility]) Allergies Active Allergy Reactions Criticality Noted Date [...] as of this encounter (statuses as of 05/22/2024) Medications Medication Sig Dispensed Refills Start Date [...] 90 Tablet 3 04/01/2023 Active Nystatin-Triamcinolon e 650348-5.1 UNIT/GM-% External Ointment (Mycolog)Indications: Dermatitis Apply topically to affected area 3 times a day. Apply to affected area 15 g 1 04/18/2023 Active Furosemide 20 MG Oral Tablet (Lasix)Indications:HT N, goal below 140/90,Coronary artery disease involving [place] heart without angina pectoris, unspecified vessel or [...] MEALS 180 Tablet 3 08/29/2023 Active Pen [place] 32G X 4 MMIndications:Type 2 diabetes mellitus [...] DINNER 90 Tablet 1 02/01/2024 Active Tiotropium [place]-Olodaterol 2.5-2.5 MCG/ACT Inhalation Aerosol Solution (Stiolto Respimat)Indications: [...] as of this encounter (statuses as of 05/22/2024) Active Problems Problem Noted Date Diagnosed Date [...] C5-6 b/l NATAN 03/10 colon @[facility]--WNL angie 10y 03/07 MRI lumbar some [...] Overview: STENT 2008 [facility], [place] 2004 HTN, goal below 140/90 04/10/2012 Overview: Per HTN Protocol #27. ADVANCE DIRECTIVE INFORMATION 03/19/2010 Overview: Information offered-patient declined. Type 2 diabetes mellitus wit h hemoglobin A1c goal of less than 8.0% 08/06/2009 Overview: Per Lipid Taxonomy. ICD-10 update of inactive term Old myocardial infarct 03/13/2009 Overview: INFEROLATERAL [place] 2003 Chronic rhinitis 10/07/2008 Gastroparesis 04/27/2007 Sarcoidosis 05/12/2005 Overview: DX 2004 EGD showing nonnecrotizing granuloma stomach + wt loss. Saw pulm. FAMILY HX-GI MALIGNANCY 02/09/2005 documented as of this encounter (statuses as of 05/22/2024) Resolved Problems Problem Noted Date Diagnosed Date Resolved Date Coronary artery disease invo lving ekw[place] coronary artery of ekwok heart with unstable angina pectoris 09/05/2019 08/06/2021 [...] myocardial infarction 03/13/2009 Overview: Modified by Acute [place] Protocol #5. Major depressive disorder, r ecurrent episode, moderate 06/13/2013 documented as of this encounter (statuses as of 05/22/2024) Immunizations Name Administration Dates Next Due COVID-19 mRNA, LNP-s, No Pre serve, 2-Dose Series (Moderna) 10/27/2020,09/29/2020 COVID-19, LNP-s, No Preserve , Klaus-sucrose, Ages 12+ (Pfizer) 03/17/2022 COVID-19, MRNA-LNP, 23-24, P F, 30 MCG/0.3 mL, 12 YRS AND ABOVE, IM ([employer]-Comirnaty) 06/07/2023 COVID-19, mRNA, LNP-s, PF, B ooster, [...] Date Smoking Tobacco: Every Day Cigarettes 0.5 59.7 Started: 1965 Passive Smoke Exposure: Past Smokeless [...] encounter Miscellaneous Notes * Telephone Encounter - Raquel Buck MED ASSIST - 05/22/2024 8:33 AM EDT Neurology Pre-Cert Request Medication/Disease State Information: Medication: Rimegepant (Nurtec)- 75 mg as needed up to twice a week (maximum 75 mg per 24 hours) Diagnosis (including ICD-10): Migraine - Chronic Migraine G43.709 - Self- administered - route pre-cert request to [id number] See corresponding visit note(s) for additional supporting clinical information. Office Information: Prescriber: Ivy Rodrigues MD documented in this encounter Plan of Treatment Upcoming Encounters Date Type Department Care Team (Late st Contact Info) Description 05/28/2024 10:30 AM EDT Telemedicine Psychiatry, [facility] [address] [place] [address] Pedro Luis Casas CRNP [address] [place] [address] 05/29/2024 9:45 AM EDT Immunization [facility] [address] [place] [address] [facility] [address] [place] [address] 05/29/2024 10:30 AM EDT [facility] [address] [place] [address] [facility] [address] [place] [address] 06/04/2024 11:00 AM EDT Office Visit Orthopaedics [facility] [address] [place] [address] Bill Reilly MD [address] [place] [address] 06/28/2024 9:30 AM EST Office Visit Cardiology, [facility] 132 [facility] [place] [address] Markell Brooks PAEddyC 132 [facility] [place] [address] 08/28/2024 9:00 AM EST Office Visit Rheumatology [address] [place] [address] Matthew Mari MD [address] [place] [address] [place] [address] 09/17/2024 11:30 AM EST Office Visit Hematology/Oncology [facility] 200 [facility] [place] [address] Angela Renteria CRNP 400 [facility] [place] [address] 11/19/2024 9:20 AM EDT Office Visit Hepatology, [facility] 132 [facility] [place] [address] Lali Chowdhury DO 132 [facility] [place] [address] 11/20/2024 7:00 AM EDT Office Visit Neurology [facility] 200 [facility] [place] [address] Kendra Montano PAPeña [address] [facility] [place] [address] 05/31/2025 9:20 AM EDT Office Visit Family Practice [facility] [address] [place] [address] Brent Smith MD [address] [place] [address] Health Maintenance Due Date Last Done Comments Cologuard 1995 Sigmoidoscopy 1995 Fecal Occult Blood Test 01/20/2013 01/21/20 12, 10/07/2000, 10/05/1996 DISCUSS TOBACCO CESSATION (REFER TO SMARTSET #3291) 05/10/2018 05/10/2017 (Discussed) Mammogram 12/10/2023 12/09/2022, 11/21, 08/20/2021, Additional history exists COVID-19 Vaccine ( season) 2024 06/07/2023, 08/18/2022, 03/17/2022, Additional history exists Influenza Vaccine (FLU shot) (#1) 2024 05/06/2023, 05/13/2022, 06/16/2021, Additional history exists Diabetic Eye Exam 06/30/2024 06/30/2023, (Done elsewhere), 06/30/2023, Additional history exists Albumin/Creatinine Ratio 08/05/2024 023, 05/06/2023, 07/10/2022, Additional history exists CKD PHOS USE SMARTSET 08594 08/05/202407/22, 08/09/2022, 08/06/2021, Additional history exists Diabetic [...] 03/27/2024, 10/21/19 22 CKD HGB USE SMARTSET 07984 05/10/202505/10, 05/10/2024, 03/12/2024, Additional history exists Depression [...] Documents on File Type Date Recorded Patient Continuous Improvement Coordinator 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 Care Teams Bus Operator Relationship Specialty Start Date End Date Brent Smith MD [address] [place] [address] PCP - General Family Medicine 04/20/23 documented as of this encounter
--- OUTSIDE RECORDS SUMMARY | 2024-08-09 14:41 | External Medical Summary | Summary of Care ---
Author Name Unknown Organization [facility] Address [address] [facility] [address] Phone [phone] Care Team Providers Care Supervisor Seaming Name Role Phone Brent Smiht MD Primary Care Provider + Encounter Details [...] 90 Tablet 3 04/01/2023 Active Nystatin-Triamcinolon e 640947-3.1 UNIT/GM-% External Ointment (Mycolog)Indications: Dermatitis Apply topically to affected area 3 times a day. Apply to affected area 15 g 1 04/18/2023 Active Furosemide 20 MG Oral Tablet (Lasix)Indications:HT N, goal below 140/90,Coronary artery disease involving [place] heart without angina pectoris, unspecified vessel or [...] MEALS 180 Tablet 3 08/29/2023 Active Pen [place] 32G X 4 MMIndications:Type 2 diabetes mellitus [...] DINNER 90 Tablet 1 02/01/2024 Active Tiotropium [place]-Olodaterol 2.5-2.5 MCG/ACT Inhalation Aerosol Solution (Stiolto Respimat)Indications: [...] stenosis. Had C5-6 b/l NATAN 03/10 colon @[facility]--WNL angie 10y 03/07 MRI lumbar some arthritis [...] (coronary artery disease) 07/07/2012 Overview: STENT 2007 [facility] [place] 2004 HTN, goal below 140/90 04/10/2012 Overview: Per HTN Protocol #27. ADVANCE DIRECTIVE INFORMATION 03/19/2010 Overview: Information offered-patient declined. Type 2 diabetes mellitus wit h hemoglobin A1c goal of less than 8.0% 08/06/2009 Overview: Per Lipid Taxonomy. ICD-10 update of inactive term Old myocardial infarct 03/13/2009 Overview: INFEROLATERAL [place] 2004 Chronic rhinitis 10/07/2008 Gastroparesis 04/27/2007 Sarcoidosis 05/12/2005 Overview: DX 2004 EGD showing nonnecrotizing granuloma stomach + wt loss. Saw pulm. FAMILY HX-GI MALIGNANCY 02/09/2005 documented as of this encounter (statuses as of 05/30/2024) Resolved Problems Problem Noted Date Diagnosed Date Resolved Date Coronary artery disease invo lving [place] coronary artery of [place] heart with unstable angina pectoris 09/05/2019 08/06/2021 [...] myocardial infarction 03/13/2009 Overview: Modified by Acute [place] Protocol #5. Major depressive disorder, r ecurrent episode, moderate 06/13/2013 documented as of this encounter (statuses as of 05/30/2024) Immunizations Name Administration Dates Next Due COVID-19 mRNA, LNP-s, No Pre serve, 2-Dose Series (Moderna) 10/27/2020,09/29/2020 COVID-19, LNP-s, No Preserve , Klaus-sucrose, Ages 12+ (Pfizer) 03/17/2022 COVID-19, MRNA-LNP, 23-24, P F, 30 MCG/0.3 mL, 12 YRS AND ABOVE, IM ([employer]-Comirnaty) 06/07/2023 COVID-19, MRNA-LNP, 24-25, P R, 30MCG/0.3ML, IM, 12YRS AND ABOVE ([employer]-Comirnaty) 05/29/2024 COVID-19, mRNA, LNP-s, PF, B ooster, [...] 06/04/2024 11:00 AM EDT Office Visit Orthopaedics [facility] [address] [place] [address] Bill Reilly MD [address] [place] [address] 06/06/2024 8:00 AM EDT Telemedicine Psychiatry, [facility] [address] [place] [address] Pedro Luis Casas CRNP [address] [place] [address] 06/28/2024 8:40 AM EST Immunization Ancillary [facility] [address] [place] [address] [facility] [address] [place] [address] 06/28/2024 9:30 AM EST Office Visit Cardiology, [facility] [address] [place] [address] Markell Brooks PAEddyC [address] [place] [address] 07/24/2024 10:00 AM EST Office Visit Pharmacy, [facility] 132 [facility] [place] [address] [facility] [place] [address] [facility] [place] [address] 08/28/2024 9:00 AM EST Office Visit Rheumatology [address] [place] [address] Matthew Mari MD [address] [place] [address] [place] [address] 08/28/2024 9:30 AM EST Imaging Radiology [facility]st [facility] 132 [facility] [place] [address] 09/17/2024 11:30 AM EST Office Visit Hematology/Oncology [facility] [address] [place] [phone] Angela Renteria CRNP [address] [place] [address] [place] [address] 10/08/2024 9:00 AM EST Office Visit Dermatology [facility] [place] [address] [place] [address] Justyna Krishnamurthy PA-C [address] [place] [address] 11/19/2024 9:20 AM EDT Office Visit Hepatology, [facility] 132 [facility] [place] [address] Lali Chowdhury DO 132 [facility] [place] [address] 11/20/2024 7:00 AM EDT Office Visit Neurology [facility] [address] [place] [address] Kendra Montano PA-C [address] [place] [address] 05/31/2025 9:20 AM EDT Office Visit Family Practice [facility] 132 [facility] [place] [address] Brent Smith MD 132 [facility] [place] [address] Health Maintenance Due Date Last Done Comments [...] Additional history exists CKD PHOS USE SMARTSET 75239 08/05/202407/22, 08/09/2022, 08/06/2021, Additional history exists Diabetic Foot Exam 08/05/2024 08/05/2023, 1 09/18/2021, 09/04/2021, Additional history exists GFR 11/07/2024 05/10/2024, 06/0 02/2024, 10/25/2023, Additional history exists HbA1c 11/07/2024 05/10/2024, 06/0 02/2024, 10/25/2023, Additional history exists O2 ASSESSMENT COMPLETED IN PAST YEAR FOR COPD 11/30/2024 12/01/2023 B-12 12/14/2024 12/15/2023, 05/22, 11/12/2022, Additional history exists Adult Wellness Visit 03/27/2025 03/27/2024, 10/21/19 CKD HGB USE SMARTSET 56736 05/10/202505/10, 05/10/2024, 03/12/2024, Additional history exists Depression [...] Documents on File Type Date Recorded Patient Production Coordinator 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 Care Teams Supervisor Seaming Relationship Specialty Start Date End Date Brent Smith MD [address] [place] [address] PCP - General Family Medicine 04/20/23 documented as of this encounter
--- OUTSIDE RECORDS SUMMARY | 2024-08-09 14:41 | External Medical Summary | Summary of Care ---
Author Name Unknown Organization [facility] Address [address] [facility] [place] [address] Phone [phone] Care Team Providers Care Donor Recruiter Name Role Phone Brent Smith MD Primary Care Provider + Reason for Visit * Reason Comments Dosage Adjustment In Person (Anticoag Cl inic) Diabetes Follow-Up Encounter Details Date Type Department Care Team (Late st Contact Info) Description 05/29/2024 10:30 AM EDT Office Visit Pharmacy, [facility] [address] [facility] [place] [address] [facility] [address] [facility] [place] [address] Type 2 diabetes mellitus with hemoglobin A1c goal of less than 8.0% ([facility])*; Coronary artery disease involving [place]pres[place] heart without angina pectoris, unspecified vessel or [...] as of this encounter (statuses as of 05/29/2024) Medications Medication Sig Dispensed Refills Start Date [...] 90 Tablet 3 04/01/2023 Active Nystatin-Triamcinolon e 751242-1.1 UNIT/GM-% External Ointment (Mycolog)Indications: Dermatitis Apply topically to affected area 3 times a day. Apply to affected area 15 g 1 04/18/2023 Active Furosemide 20 MG Oral Tablet (Lasix)Indications:HT N, goal below 140/90,Coronary artery disease involving [place] heart without angina pectoris, unspecified vessel or [...] MEALS 180 Tablet 3 08/29/2023 Active Pen [place] 32G X 4 MMIndications:Type 2 diabetes mellitus with hemoglobin A1c goal of less than 8.0% (HCC) Use as directed. To administer insulin. 100 Each 3 08/29/2023 Active Pioglitazone HCl 30 MG Oral Tablet (Actos) Take 1 Tablet by mouth in the morning. 90 Tablet 3 08/29/2023 Active FreeStyle LancetsIndications:Ty pe 2 diabetes mellitus with hemoglobin A1c goal of less than 8.0% ([facility]) Use to test blood sugar twice daily or as directed E11.9 180 Each 3 09/08/2023 Active FreeStyle Lite Test In Vitro Strip (Glucose Blood)Indications:Typ e 2 diabetes mellitus with hemoglobin A1c goal of less than 8.0% ([facility]) Use to test blood sugar twice [...] 1 TABLET DAILY WITH DINNER 90 Tablet 02/01/2024 Active Tiotropium [place]-Olodaterol 2.5-2.5 MCG/ACT Inhalation Aerosol Solution (Stiolto Respimat)Indications: [...] as of this encounter (statuses as of 05/29/2024) Active Problems Problem Noted Date Diagnosed Date [...] Dr Kaushal Giang. 11/19/20 MRI C-Spine in [place]. DDD most C5-6. Mod central canal and mod left foraminal stenosis. Had C5-6 b/l NATAN 03/10 colon @[facility]--WNL angie 10y 03/07 MRI lumbar [...] (coronary artery disease) 07/07/2012 Overview: STENT 2008 [facility] [place] 2004 HTN, goal below 140/90 04/10/2012 Overview: Per HTN Protocol #27. ADVANCE DIRECTIVE INFORMATION 03/19/2010 Overview: Information offered-patient declined. Type 2 diabetes mellitus wit h hemoglobin A1c goal of less than 8.0% 08/06/2009 Overview: Per Lipid Taxonomy. ICD-10 update of inactive term Old myocardial infarct 03/13/2009 Overview: INFEROLATERAL [place] 2003 Chronic rhinitis 10/07/2008 Gastroparesis 04/27/2007 Sarcoidosis 05/12/2005 Overview: DX 2004 EGD showing nonnecrotizing granuloma stomach + wt loss. Saw pulm. FAMILY HX-GI MALIGNANCY 02/09/2005 documented as of this encounter (statuses as of 05/29/2024) Resolved Problems Problem Noted Date Diagnosed Date Resolved Date Coronary artery disease invo lving [place] coronary artery of [place] heart with unstable angina pectoris 09/05/2019 08/06/2021 [...] to patient at prior appointment. PURE HYPERCHOLESTEROLEM 01/29/2004/01/2009 Overview: Per Lipid Taxonomy. CHR ISCHEMIC HRT [...] as of this encounter (statuses as of 05/29/2024) Immunizations Name Administration Dates Next Due COVID-19 [...] as of this encounter Progress Notes * Liana Breaux, [facility] - 05/29/2024 9:41 AM EDT Medication Therapy Disease Management Clinic - Diabetes Management Progress Note Shelly Macdonald, identified by name and date of , is a 73 year old female being seen for diabetes management/education. Patient presents for return diabetic visit. DIABETES: Current diabetic medications: Metformin 1000 mg BID Actos 30 mg daily START: Jardiance 10 mg daily Medication Injection Site: N/A Pre am Post am Pre Lunch Post Lunch Pre pm Post pm HS 3am 104 101 119 130 114 125 123 102 103 122 127 127 125 120 132 121 Average 118 #DIV/0! #DIV/0! #DIV/0! #DIV/0! #DIV/0! #DIV/0! #DIV/0! Hi 132 0 0 0 0 0 0 0 Lo 101 0 0 0 [address]7143 0 0 0 0 0 0 0 Range 31 0 0 0 0 0 0 0 Lifestyle: Diet: unchanged Glucose Review/SMBG: Readings obtained from patient documented BG logbook Hypoglycemia: Does your blood sugar go below [...] indicated BP Readings from Last 3 Encounters: 05/14/24 132/68 05/10/24 134/84 05/10/24 134/84 Blood pressure at goal: yes HYPERLIPIDEMIA: Recent Labs Units 05/06/23 1057 06/23/22 0756 LDL CHOLESTEROL (CALCULATED) - [facility] mg/dL 48 47 Does patient have clinical ASCVD? No, is patient LDL less than 70mg/dL? Yes HEALTH MAINTENANCE REVIEW: Health Maintenance Due Topic Date Due DISCUSS TOBACCO CESSATION (REFER TO KoruSET #3291) 05/10/2018 Mammogram 12/10/2023 Influenza Vaccine (FLU shot) (1) 04/22/2024 Albumin/Creatinine Ratio 08/05/2024 ASSESSMENT & PLAN: ICD-10-CM 1. Type 2 diabetes mellitus with hemoglobin A1c goal of less than 8.0% (HCC) E11.9 2. Coronary artery disease involving [place] heart without angina pectoris, unspecified vessel or lesion type I25.10 3. HTN, goal below 140/90 I10 4. Dyslipidemia, goal LDL below 70 E78.5 BG Readings - Blood sugars controlled. BG values are within recommended range. Medications - Reviewed current regimen, patient is adherent to regimen. Will continue current medications at this time. No concerns or questions asked. Diet, Exercise, Lifestyle - patient continues to feel overall unwell . Discussed with patient, patient agreeable to try nurtec for headaches, will follow up with pcp regarding unwellness. Patient is agreeable to SMBG 1 time(s) daily. Patient aware to contact clinic if any hypoglycemia before next visit. MEDICATION CHANGES: no change Diabetic Medications: Metformin 1000 mg BID Actos 30 mg daily Jardiance 10 mg daily HEALTH MAINTENANCE INTERVENTIONS: Labs: Up to Date Immunizations: will address next visit Foot Exam: Up to Date Eye Exam: Up to Date Annual Wellness Visit: Up to Date FOLLOW UP: Return to clinic in 8 weeks 07/24/2024 I spent a total of 20-29 minutes (exact time 22 mins) on the date of service in preparation, delivery, and documentation of the care provided to Shelly Macdonald excluding any time spent in the performance of separately billed services. Liana Breaux [facility] Clinical Pharmacist - Polyethylene Combiner Medication Therapy Management Clinic 05/29/2024, 9:42 AM documented in this encounter Plan of Treatment Upcoming Encounters Date Type Department Care Team (Late st Contact Info) Description 06/04/2024 11:00 AM EDT Office Visit Orthopaedics [facility] [address] [place] [address] Bill Reilly MD [address] [place] [address] 06/06/2024 8:00 AM EDT Telemedicine Psychiatry, [facility] [address] [place] [address] Pedro Luis Casas CRNP [address] [place] [address] 06/28/2024 9:30 AM EST Office Visit Cardiology, [facility] [address] [place] [address] Markell Brooks, PAPeña [address] [place] [address] 07/24/2024 10:00 AM EST Office Visit Pharmacy, [facility] [place] [address] [facility] [address] [place] [address] 08/28/2024 9:00 AM EST Office Visit Rheumatology [place] [id number] [facility] [place] [address] Matthew Mari MD [facility] [place] [address] 08/28/2024 9:30 AM EST Imaging Radiology [facility] 1st Floor, [place] [address] [place] [address] 09/17/2024 11:30 AM EST Office Visit Hematology/Oncology [facility] [address] [facility] [place] [phone] Angela Renteria CRNP [address] [facility] [place] [address] 10/08/2024 9:00 AM EST Office Visit [facility]at[facility] [place] [address] [facility] [address] Justyna Krishnamurthy PA-C [address] [place] [address] 11/19/2024 9:20 AM EDT Office Visit Hepatology, [facility] [address] [facility] [place] [address] Lali Chowdhury DO [address] [facility] [place] [address] 11/20/2024 7:00 AM EDT Office Visit Neurology [facility] [address] [facility] [place] [address] Kendra Montano PA-C [facility] [place] [address] 05/31/2025 9:20 AM EDT Office Visit Family Practice [facility] [address] [facility] [place] [address] Brent Smith MD [address] [place] [address] Health Maintenance Due Date Last Done Comments Cologuard 1995 Sigmoidoscopy 1995 Fecal Occult Blood Test 01/20/2013 01/21/20 12, 10/07/2000, 10/05/1996 DISCUSS TOBACCO CESSATION (REFER TO SMARTSET #3291) 05/10/2018 05/10/2017 (Discussed) Mammogram 12/10/2023 12/09/2022, 04/, 08/20/2021, Additional history exists Influenza Vaccine (FLU shot) (#1) 2024 05/06/2023, 05/13/2022, 06/16/2021, Additional history exists Diabetic Eye Exam 06/30/2024 06/30/2023, (Done elsewhere), 06/30/2023, Additional history exists Albumin/Creatinine Ratio 08/05/2024 023, 05/06/2023, 07/10/2022, Additional history exists CKD PHOS USE SMARTSET 71367 08/05/202407/22, 08/09/2022, 08/06/2021, Additional history exists Diabetic [...] 03/27/2024, 10/21/19 22 CKD HGB USE SMARTSET 57853 05/10/202505/10, 05/10/2024, 03/12/2024, Additional history exists Depression [...] 8.0% (HCC)- Primary Coronary artery disease involving [place] heart without angina pectoris, unspecified vessel or lesion type HTN, goal below 140/90 Unspecified essential hypertension Dyslipidemia, goal LDL below 70 Other and unspecified hyperlipidemia documented in this encounter Advance Directives Documents on File Type Date Recorded Patient Supervisor Phosphorus Processing 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 Care Teams Donor Recruiter Relationship Specialty Start Date End Date Brent Smith MD [address] [place] [address] PCP - General Family Medicine 04/20/23 documented as of this encounter
--- OUTSIDE RECORDS SUMMARY | 2024-08-09 14:41 | External Medical Summary | Summary of Care ---
Author Name Unknown Organization [facility] Address [address] [facility] [place] [address] Phone [phone] Care Team Providers Care Household Appliance Assembler Name Role Phone Brent Smith MD Primary [...] 90 Tablet 3 04/01/2023 Active Nystatin-Triamcinolon e 558765-7.1 UNIT/GM-% External Ointment (Mycolog)Indications: Dermatitis Apply topically to affected area 3 times a day. Apply to affected area 15 g 1 04/18/2023 Active Furosemide 20 MG Oral Tablet (Lasix)Indications:HT N, goal below 140/90,Coronary artery disease involving [place] heart without angina pectoris, unspecified vessel or [...] MEALS 180 Tablet 3 08/29/2023 Active Pen [place] 32G X 4 MMIndications:Type 2 diabetes mellitus [...] DINNER 90 Tablet 1 02/01/2024 Active Tiotropium [place]-Olodaterol 2.5-2.5 MCG/ACT Inhalation Aerosol Solution (Stiolto Respimat)Indications: [...] stenosis. Had C5-6 b/l NATAN 03/10 colon @[facility]--WNL angie 10y 03/07 MRI lumbar some [...] artery disease) 07/07/2012 Overview: STENT [facility] [place] 2004 HTN, goal below 140/90 04/10/2012 Overview: Per HTN Protocol #27. ADVANCE DIRECTIVE INFORMATION 03/19/2010 Overview: Information offered-patient declined. Type 2 diabetes mellitus wit h hemoglobin A1c goal of less than 8.0% 08/06/2009 Overview: Per Lipid Taxonomy. 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 Saw pulm. FAMILY HX-GI MALIGNANCY 02/09/2005 documented as of this encounter (statuses as of 05/30/2024) Resolved Problems Problem Noted Date Diagnosed Date Resolved Date Coronary artery disease invo lving [place] coronary artery of [place] heart with unstable angina pectoris 09/05/2019 08/06/2021 [...] MCG/0.3 mL, 12 YRS AND ABOVE, IM (6Wunderkinder-Comirnaty) 06/07/2023 COVID-19, MRNA-LNP, 24-25, P R, 30MCG/0.3ML, IM, 12YRS AND ABOVE (Errplane-Comirnaty) 05/29/2024 COVID-19, mRNA, LNP-s, PF, B ooster, [...] 06/04/2024 11:00 AM EDT Office Visit Orthopaedics [facility] [address] [place] [address] Bill Reilly MD [address] [place] [address] 06/06/2024 8:00 AM EDT Telemedicine Psychiatry, [facility] [address] [place] [address] Pedro Luis Casas CRNP [address] [place] [address] 06/28/2024 8:40 AM EST Immunization Ancillary [facility] [address] [place] [address] [facility] [address] [place] [address] 06/28/2024 9:30 AM EST Office Visit Cardiology, [facility] [address] [place] [address] Markell Brooks PAEddyC [address] [place] [address] 07/24/2024 10:00 AM EST Office Visit Pharmacy, [facility] [address] [facility] [place] [address] [facility] [place] [address] [facility] [place] [address] 08/28/2024 9:00 AM EST Office Visit Rheumatology [address] [place] [address] Matthew Mari MD [address] [place] [address] [place] [address] 08/28/2024 9:30 AM EST Imaging Radiology [facility] [address] [facility] [place] [address] 09/17/2024 11:30 AM EST Office Visit Hematology/Oncology [facility] [address] [place] [phone] Angela Renteria CRNP [address] [place] [address] [place] [address] 10/08/2024 9:00 AM EST Office Visit Dermatology [facility] [place] [address] [place] [address] Justyna Krishnamurthy PA-C [address] [place] [address] 11/19/2024 9:20 AM EDT Office Visit Hepatology, [facility] [address] [facility] [place] [address] Lali Chowdhury DO [address] [facility] [place] [address] 11/20/2024 7:00 AM EDT Office Visit Neurology [facility] [address] [place] [address] Kendra Montano PA-C [facility] [place] [address] 05/31/2025 9:20 AM EDT Office Visit Family Practice [facility] [address] [facility] [place] [address] Brent Smith MD [address] [facility] [place] [address] Health Maintenance Due Date Last Done Comments [...] Additional history exists CKD PHOS USE SMARTSET 81537 08/05/202407/22, 08/09/2022, 08/06/2021, Additional history exists Diabetic Foot Exam 08/05/2024 08/05/2023, 1 09/18/2021, 09/04/2021, Additional history exists GFR 11/07/2024 05/10/2024, 06/0 02/2024, 10/25/2023, Additional history exists HbA1c 11/07/2024 05/10/2024, 06/0 02/2024, 10/25/2023, Additional history exists O2 ASSESSMENT COMPLETED IN PAST YEAR FOR COPD 11/30/2024 12/01/2023 B-12 12/14/2024 12/15/2023, 05/22, 11/12/2022, Additional history exists Adult Wellness Visit 03/27/2025 03/27/2024, 10/21/19 CKD HGB USE SMARTSET 63982 05/10/202505/10, 05/10/2024, 03/12/2024, Additional history exists Depression [...] Documents on File Type Date Recorded Patient Convertible Sofa Bedspring 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 Care Teams Household Appliance Assembler Relationship Specialty Start Date End Date Brent Smith MD [address] [place] [address] PCP - General Family Medicine 04/20/23 documented as of this encounter
--- OUTSIDE RECORDS SUMMARY | 2024-08-09 14:42 | External Medical Summary | Summary of Care ---
Author Name Unknown Organization [facility] Address [address] [facility] [address] Phone [phone] Care Team Providers Care Filler Picker Name Role Phone Brent Smith MD Primary Care Provider + Reason for Visit * Reason Comments Follow Up Headaches * Evaluate & Treat - Unlimited Visits (Within 30 days (routine)) - Authorized Specialty Diagnoses / Procedures Referred By Chayo brennan Referred To Contact Neurology Diagnoses Daily headache Brent Smith MD [address] [facility] [place] [address] Referral ID Status Reason Start Date Expiration Date Visits Requested Visits Authorized [id number] Authorized Specialty Services Required 05/10/[phone] Encounter Details Date Type Department Care Team (Late st Contact Info) Description 05/14/2024 11:20 AM EDT Office Visit Neurology [address] [place] [address] [place] [address] Ivy Broussard PA-C [address] [place] [address] Migraine variant*; NDPH (new daily persistent headache) Allergies Active Allergy Reactions Criticality Noted Date [...] as of this encounter (statuses as of 05/14/2024) Medications Medication Sig Dispensed Refills Start Date [...] 90 Tablet 3 04/01/2023 Active Nystatin-Triamcinolon e 919825-5.1 UNIT/GM-% External Ointment (Mycolog)Indications: Dermatitis Apply topically to affected area 3 times a day. Apply to affected area 15 g 1 04/18/2023 Active Furosemide 20 MG Oral Tablet (Lasix)Indications:HT N, goal below 140/90,Coronary artery disease involving [place] heart without angina pectoris, unspecified vessel or [...] MEALS 180 Tablet 3 08/29/2023 Active Pen [place] 32G X 4 MMIndications:Type 2 diabetes mellitus [...] of less than 8.0% ([facility]) Use to test blood sugar twice daily or as directed E11.9 180 Each 09/08/2023 Active FreeStyle Lite Test In Vitro Strip (Glucose Blood)Indications:Typ e 2 diabetes mellitus with hemoglobin A1c goal of less than 8.0% ([facility]) Use to test blood sugar twice daily or as directed DX 250.00 200 Strip 09/08/2023 Active Nitroglycerin 0.4 MG Sublingual Tablet Sublingual (Nitrostat) 1 tab under tongue every 5 minutes for chest pain as needed, up to 3 in 15 minutes 25 Tablet 09/07/2023 Active Albuterol Sulfate HFA 108 (90 Base) MCG/ACT Inhalation Aerosol Solution Inhale 2 Puffs by mouth every 6 hours as needed for Cough, Shortness of Breath or Wheezing. 18 g 3 09/27/2023 Active Metoprolol Succinate ER 100 MG Oral Tablet Extended Release 24 Hour (toPROL XL) TAKE 1 TABLET IN THE MORNING AND 1 TABLET BEFORE BEDTIME 180 Tablet 12/07/2023 Active clonazePAM 1 MG Oral Tablet [...] hours as needed for Nausea. 30 Tablet 01/03/2024 Active Ajovy 225 MG/1.5ML Subcutaneous Solution [...] DINNER 90 Tablet 1 02/01/2024 Active Tiotropium Solomon-Olodaterol 2.5-2.5 MCG/ACT Inhalation Aerosol Solution (Stiolto Respimat)Indications: [...] as of this encounter (statuses as of 05/14/2024) Active Problems Problem Noted Date Diagnosed Date [...] Dr Kaushal Giang. 11/19/20 [place] in [place]. DDD most C5-6. Mod central canal and mod left foraminal stenosis. Had C5-6 b/l NATAN 03/10 colon [facility]--WNL angie 10y 03/07 MRI lumbar some [...] artery disease) 07/07/2012 Overview: STENT 2008 [facility], [place] 2004 HTN, goal below 140/90 04/10/2012 Overview: Per HTN Protocol #27. ADVANCE DIRECTIVE INFORMATION 03/19/2010 Overview: Information offered-patient declined. Type 2 diabetes mellitus wit h hemoglobin A1c goal of less than 8.0% 08/06/2009 Overview: Per Lipid Taxonomy. 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 Saw pulm. FAMILY HX-GI MALIGNANCY 02/09/2005 documented as of this encounter (statuses as of 05/14/2024) Resolved Problems Problem Noted Date Diagnosed Date Resolved Date Coronary artery disease invo lving [place] coronary artery of [place] heart with unstable angina pectoris 09/05/2019 08/06/2021 [...] myocardial infarction 03/13/2009 Overview: Modified by Acute [place] Protocol #5. Major depressive disorder, r ecurrent episode, moderate 06/13/2013 documented as of this encounter (statuses as of 05/14/2024) Immunizations Name Administration Dates Next Due COVID-19 mRNA, LNP-s, No Pre serve, 2-Dose Series (Moderna) 10/27/2020,09/29/2020 COVID-19, LNP-s, No Preserve , Kalus-sucrose, Ages 12+ (Pfizer) 03/17/2022 COVID-19, MRNA-LNP, 23-24, [...] Vaccine, Unspec ified Formulation 05/13/2013 Seasonal Influenza Virus Vac cine, Unspecified Formulation 06/02/2019,04/29/2018,06/01/2006 Seasonal Influenza, PF, 6 M & above, IM , (FluLaval or Fluzone) 06/14/2018 06/14/2019 Seasonal Influenza, Quadriva lent Hd (Fluzone Hd) 05/06/2023,05/13/2022,06/16/2021 Seasonal Influenza, Quadriva lent, No Preserve, IM 05/16/2020,05/10/2017,06/24/2016,01/201506/24/2017 Seasonal Influenza, Trivalen t, (IIV3), with Preserv, (Fluzone) 06/03/2014,06/07/2013,04/27/2012,05/23,05/07/2010,09/05/2009,06/07/20 08,06/02/2007,06/09/2005 Seasonal Influenza, Trivalen t, Adjuvanted, 65+ YRS, [...] No 05/18/2023 Does the household have a [facility] income? (Household - [...] Sign Reading Time Taken Comments Blood Pressure 132/68 05/14/2024 11:24 AM EDT Pulse 65 05/14/2024 11:24 AM EDT Temperature 36.2 C (97.1 F) 05/14/2024 11:24 AM E DT Respiratory Rate 18 05/14/2024 11:24 AM EDT Oxygen Saturation 98% 05/14/2024 11:24 AM EDT Inhaled Oxygen Concentration - - Weight 62 kg (136 lb 11.2 oz) 05/14/2024 11:24 A M EDT Height 160 cm (5' 2.99") 05/14/2024 11:24 AM EDT Body Mass Index 24.22 05/14/2024 11:24 AM EDT documented in this encounter Functional Status Functional Status Response [...] as of this encounter Progress Notes * Ivy Broussard PA-C - 05/14/2024 11:23 AM EDT HISTORY & PHYSICAL EXAMINATION - NEUROLOGY Name: Shelly Macdonald Date: 05/14/2024 Time: 11:24 AM Referring Provider: Brent Smith MD Chief Complaint: Chief Complaint Patient presents with Follow Up Headaches This is a 73 year old right handed woman returns today for follow up for headaches. HPI & Source of HPI The patient was the historian, and she is reliable. She was last seen in our office 11/24/21 by Cam Taylor MD for migraine headaches. She is currently on ajovy and doing well with her migraine headaches. She had 2 bouts of anemia and was given IV iron infusions and no source found of the anemia. Since the infusions she has been dealing with daily headaches which are relieved somewhat with tylenol and really good relief with motrin but she is not suppose to use NSAIDS. She is keeping well hydrated. Denies CP, SOB, abdominal pain, N, V. I have reviewed the patient's medications and allergies, past medical, surgical, social and family history, updating these as appropriate. See Histories section of the electronic medical record for adisplay of this information. Patient Active Problem List Diagnosis FAMILY HX-GI [...] disorder, recurrent severe without psychotic features (HCC) Family History Problem Relation Name Age of Onset Hypertension Mother chiqui Arthritis Mother chiqui Heart Disorder Mother chiqui heart attack Lung Disorder Mother chiqui COPD Mental Disorder Mother chiqui depression Cancer Mother chiqui colon cancer Eye Problems Mother cihqui cataracts Hypertension Father morena Arthritis Father morena [...] (Maternal) Chiqui M Stroke Grandmother (Paternal) Morena Medications: Are you taking your medications? yes Current Outpatient Medications Medication Sig Dispense Refill [...] TABLET BEFORE BEDTIME 90 Tablet 3 Nystatin-Triamcinolone 974304-8.1 UNIT/GM-% External Ointment (Mycolog) Apply topically to affectedarea 3 times a day. Apply to affected area 15 g 1 Furosemide 20 MG Oral Tablet (Lasix) Take 1 Tablet by mouth in the morning. 90 Tablet 3 metFORMIN HCl 1000 MG Oral Tablet (Glucophage) TAKE 1 TABLET TWICE A DAY WITH MORNING AND EVENING MEALS 180 Tablet 3 Pen [place] 32G X 4 MM Use as directed. [...] DAILY WITH DINNER 90 Tablet 1 Tiotropium Solomon-Olodaterol 2.5-2.5 MCG/ACT Inhalation Aerosol Solution (Stiolto Respimat) [...] 1 in 24 hours. 15 Tablet 2 No current facility-administered medications for this visit. Review of patient's allergies indicates: Allergen Reactions Angiotensin Receptor Blockers Other (Please comment) Hyperkalemia x's 2. Losartan Other (Please comment) HYPERKALEMIA Chantix [Varenicline] Nausea/vomiting Levofloxacin Other (Please comment) Joint pain Penicillins Edema Other and Hives Fluoride [Sodium Fluoride] Lip redness Lecithin Unknown Lovastatin Unknown Andriy Inhibitors Cough Review of Systems: A total number of 10 systems were reviewed pertinent negative and positives not addressed in HPI are listed in the following review. Physical Exam: Constitutional: BP 132/68 (BP Site: Left Arm, BP Position: Sitting, BP Cuff Size: Regular) | Pulse 65 | Temp 36.2 C (97.1 F) (Tympanic) | Resp 18 | Ht 1.6 m (5' 2.99") | Wt 62 kg (136 lb 11.2 oz)| SpO2 98% | BMI 24.22 kg/m | BSA 1.66 m , appearance nourished, healthy, and normal Ears, Nose, Mouth and Throat: mucous membranes moist, no injection and skin normal, eyes normal Cardiovascular: normal S-1 and S-2 and regular rate and rhythm Respiratory: clear to auscultation (CTA) and no rales, ronchi or wheeze Musculoskeletal: no peripheral edema Skin: normal and intact Eyes: extraocular muscles intact (EOMI) and pupils equal, round and reactive to light (PERRL) NEUROLOGIC EXAMINATION: Mental status: Alert and interactive Oriented to full date and location Oriented to person Speech fluent with no evidence of aphasia Cranial Nerves Normal findings for Cranial Nerves II - XII Coordination: on [id number] Gait/Stance: Posture normal. Gait normal: with steady with steps, base, arm swing, and tandem gait. Motor: Negative for pronator drift of out stretched arms with eyes closed. Strength: Normal - 5/5 all extremities LABORATORY: Recent labs reviewed Review of prior Studies: No recent imaging available. Impression: Shelly Macdonald is a 73 year old woman with a history of migraine headaches and new daily headachces. Her neurologic examination today reveals no new focal deficit. The history and examination are suggestive of diagnosis/problem list. Testing and Referrals ordered: none ICD-10-CM 1. Migraine variant G43.809 2. NDPH (new daily persistent headache) G44.52 Return in 6 months or sooner Continue Ajovy 225 mg/1.5 ml (injection) monthly Add nurtec 75 mg (1 tab) as prescribed Keep well hydrated PCP and hematology for medical management If headaches don't resolve with treatment would MRI brain with and without Call with questions concerns Medical Decision Making (determined by lowest of 2 of 3 elements): The medical decision making element of the number and complexity of problems addressed included at least 1 or more chronic illnesses with exacerbation, progression, or side effects of treatment (level 4). The medical decision making element of risk of complications, morbidity, and mortality of patient management is moderate (level 4) due to prescription drug management (moderate risk). The medical decision making element of the amount and complexity of data reviewed and analyzed included an independent interpretation of a test (level 4 at least). When 2 of 3 reach level 4, then this element is considered extensive (level 5). I personally spent a total of 30 minutes. This time was for a new office or established visit and was on the same calendar day. and This time was the total spent on the evaluation, interpretation, and documentation. Education / Consultation - Topics covered as I spent 20 minutes, which is greater than 50% of this visit, counseling the patient on: Diagnostic Results Prognosis Risks and benefits of treatment options Risk factor reductions Patient and family education Consulted with physician: Cam Taylor MD was available for direct supervision. Copy of note sent toPCP and Referring Provider. Total time of visit: 30 minutes. Ivy Broussard PA-C [facility] [address] [facility] [address] 05/14/2024 11:24 AM documented in this encounter Nursing Notes * Alessandro Billings CMA - 05/14/2024 11:22 AM EDT Chief Complaint Patient presents with Follow Up Headaches Shelly Macdonald is a 73 year old female who presents today with headaches. She states that she currently has a headache that started after she had IV iron infusions in December. She has a history of migraines. documented in this encounter Plan of Treatment Upcoming Encounters Date Type Department Care Team (Late st Contact Info) Description 05/28/2024 10:30 AM EDT [facility] [address] [place] [address] Pedro Luis Casas CRNP [address] [place] [address] 05/29/2024 10:30 AM EDT Office Visit Pharmacy, [facility] [address] [place] [address] [facility] [address] [place], [place] [address] 06/04/2024 11:00 AM EDT Office Visit Orthopaedics [facility] [address] [facility] [place] [address] Bill Reilly MD [address] [place] [address] 06/28/2024 9:30 AM EST Office Visit Cardiology, [facility] [address] [place], [place] [address] Markell Brooks PA-C [address] [place] [address] 08/28/2024 9:00 AM EST Office Visit Rheumatology [address] [place], [place] [address] Matthew Mari MD [address] [place] [address] [place] [address] 09/17/2024 11:30 AM EST Office Visit [facility]ology[facility] [address] [facility] [place] [phone] Angela Renteria CRNP [address] [place] [address] [place] [address] 11/19/2024 9:20 AM EDT Office Visit Hepatology, [facility] [address] [place] [address] Lali Chowdhury DO [address] [place] [address] 11/20/2024 7:00 AM EDT [facility] [address] [place] [address] Kendra Montano PA-C [address] [place] [address] 05/31/2025 9:20 AM EDT Office Visit Family Practice [facility] [address] [place] [address] Brent Smith MD [address] [place] [address] Health Maintenance Due Date Last Done Comments [...] Additional history exists CKD PHOS USE SMARTSET 17266 08/05/202407/22, 08/09/2022, 08/06/2021, Additional history exists Diabetic Foot Exam 08/05/2024 08/05/2023, 1 09/18/2021, 09/04/2021, Additional history exists GFR 11/07/2024 05/10/2024, 06/0 02/2024, 10/25/2023, Additional history exists HbA1c 11/07/2024 05/10/2024, 02/2024, 10/25/2023, Additional history exists O2 ASSESSMENT COMPLETED IN PAST YEAR FOR COPD 11/30/2024 12/01/2023 B-12 12/14/2024 12/15/2023, 05/22, 11/12/2022, Additional history exists Adult Wellness Visit 03/27/2025 03/27/2024, 10/21/19 22 CKD HGB USE SMARTSET 44342 05/10/202505/10, 05/10/2024, 03/12/2024, Additional history exists Depression [...] as of this encounter Visit Diagnoses Diagnosis Migraine variant- Primary Variants of migraine, not elsewhere classified, without mention of intractable migraine without mention of status migrainosus NDPH (new daily persistent headache) New daily persistent headache documented in this encounter Advance Directives Documents on File Type Date Recorded Patient Loan Servicing Representative 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 Care Teams Filler Picker Relationship Specialty Start Date End Date Brent Smith MD [address] [place] [address] PCP - General Family Medicine 04/20/23 documented as of this encounter
--- OUTSIDE RECORDS SUMMARY | 2024-08-09 14:42 | External Medical Summary | Summary of Care ---
Author Name Unknown Organization [facility] Address [address] [facility] [place] [address] Phone [phone] Care Team Providers Care Auto Repair Shop Manager Name Role Phone Brent Smith MD Primary Care Provider + Reason for Visit * Reason Onset Date Comments Precert In Process 05/22/2024 [facility]A ELENA [facility] Encounter Details Date Type Department Care Team (Late st Contact Info) Description 05/22/2024 Telephone Neurology [facility] [address] [place] [address] Ivy Rodrigues MD [address] [facility] [place] [address] Precert In Process ( [facility]NA [facility]) Allergies Active Allergy Reactions Criticality Noted Date [...] 90 Tablet 3 04/01/2023 Active Nystatin-Triamcinolon e 600990-6.1 UNIT/GM-% External Ointment (Mycolog)Indications: Dermatitis Apply topically to affected area 3 times a day. Apply to affected area 15 g 1 04/18/2023 Active Furosemide 20 MG Oral Tablet (Lasix)Indications:HT N, goal below 140/90,Coronary artery disease involving [place] heart without angina pectoris, unspecified vessel or [...] MEALS 180 Tablet 3 08/29/2023 Active Pen [place] 32G X 4 MMIndications:Type 2 diabetes mellitus [...] A1c goal of less than 8.0% ([facility]) Use to test blood sugar [...] DINNER 90 Tablet 1 02/01/2024 Active Tiotropium [place]-Olodaterol 2.5-2.5 MCG/ACT Inhalation Aerosol Solution (Stiolto Respimat)Indications: Centrilobular emphysema ([facility]) Inhale 2 Puffs by mouth in the [...] C5-6 b/l NATAN 03/10 colon @[facility]--WNL angie 10y 03/07 MRI lumbar some [...] (coronary artery disease) 07/07/2012 Overview: STENT 2008 [facility], [place] 2004 HTN, goal below 140/90 04/10/2012 Overview: Per HTN Protocol #27. ADVANCE DIRECTIVE INFORMATION 03/19/2010 Overview: Information offered-patient declined. Type 2 diabetes mellitus wit h hemoglobin A1c goal of less than 8.0% 08/06/2009 Overview: Per Lipid Taxonomy. ICD-10 update of inactive term Old myocardial infarct 03/13/2009 Overview: [place]FEROLATERAL [place] 2003 Chronic rhinitis 10/07/2008 Gastroparesis 04/27/2007 Sarcoidosis 05/12/2005 Overview: DX 2004 EGD showing nonnecrotizing granuloma stomach + wt loss. Saw pulm. FAMILY HX-GI MALIGNANCY 02/09/2005 documented as of this encounter (statuses as of 05/22/2024) Resolved Problems Problem Noted Date Diagnosed Date Resolved Date Coronary artery disease invo lving [place] coronary artery of [place] heart with unstable angina pectoris 09/05/2019 08/06/2021 [...] myocardial infarction 03/13/2009 Overview: Modified by Acute [place] Protocol #5. Major depressive disorder, r ecurrent [...] Preserve, IM 05/16/2020,05/10/2017,06/24/2016,10/01/201506/24/2017 Seasonal Influenza, Trivalen t, (IIV3), with Preserv, (Fluzone) 06/03/2014,06/07/2013,04/27/2012,05/23,05/07/2010,09/05/2009,06/07/20 08,06/02/2007,06/09/2005,06/12/2003,1 ,07/31/2001 Seasonal Influenza, Trivalen t, Adjuvanted, 65+ YRS, [...] No 05/18/2023 Does the household have a [facility] source [facility] income? (Household - for [...] Self- administered - route pre-cert request to [id number] See corresponding visit note(s) for additional supporting clinical information. Office Information: Prescriber: Ivy Rodrigues MD documented in this encounter Plan of Treatment Upcoming Encounters Date Type Department Care Team (Late st Contact Info) Description 05/28/2024 10:30 AM EDT Telemedicine Psychiatry, [facility] [address] [place] [address] Pedro Luis Casas CRNP [address] [place] [address] 05/29/2024 9:45 AM EDT Immunization [facility] [address] [place] [address] Evelio [facility] [address] [place] [address] 05/29/2024 10:30 AM EDT [facility] [address] [place] [address] [facility] [place] [address] 06/04/2024 11:00 AM EDT Office Visit [facility]opaedics [facility] [place] [address] Bill Reilly MD [address] [place] [address] 06/28/2024 9:30 AM EST Office Visit Cardiology, [facility] [place] [address] Markell Brooks PA-C [address] [place] [address] 08/28/2024 9:00 AM EST Office Visit Rheumatology [address] [place] [address] Matthew Mari MD [address] [place] [address] [place] [address] 09/17/2024 11:30 AM EST Office Visit Hematology/Oncology [facility] [address] [facility] [place] [phone] Angela Renteria CRNP [address] [facility] [place] [address] 11/19/2024 9:20 AM EDT Office Visit Hepatology, [facility] [place] [address] Lali Chowdhury DO [address] [place] [address] 11/20/2024 7:00 AM EDT Office Visit Neurology [facility] [address] [facility] [place] [address] Kendra Montano PAPeña [address] [place] [address] 05/31/2025 9:20 AM EDT Office Visit Family Practice [facility] [address] [place] [address] Brent Smith MD [address] [place] [address] Health Maintenance Due Date Last Done Comments [...] Additional history exists CKD PHOS USE SMARTSET 58592 08/05/202407/22, 08/09/2022, 08/06/2021, Additional history exists Diabetic [...] 03/27/2024, 10/21/19 22 CKD HGB USE SMARTSET 36279 05/10/202505/10, 05/10/2024, 03/12/2024, Additional history exists Depression [...] Documents on File Type Date Recorded Patient Vehicle Assembly Inspector 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 Care Teams Auto Repair Shop Manager Relationship Specialty Start Date End Date Brent Smith MD [address] [place] [address] PCP - General Family Medicine 04/20/23 documented as of this encounter
--- OUTSIDE RECORDS SUMMARY | 2024-08-09 14:42 | External Medical Summary | Summary of Care ---
Author Name Unknown Organization [facility] Address [address] [facility] [place] [address] Phone [phone] Care Team Providers Care Human Service Worker Name Role Phone Brent Smith MD Primary Care Provider + Encounter Details Date Type Department Care Team ([facility] Contact Info) Description 05/14/2024 Orders Only Pharmacy [address] [phone] Liana Breaux, [facility] [address] [facility] [place] [address] Allergies Active Allergy Reactions Criticality Noted Date [...] 90 Tablet 3 04/01/2023 Active Nystatin-Triamcinolon e 438885-7.1 UNIT/GM-% External Ointment (Mycolog)Indications: Dermatitis Apply topically to affected area 3 times a day. Apply to affected area 15 g 1 04/18/2023 Active Furosemide 20 MG Oral Tablet (Lasix)Indications:HT N, goal below 140/90,Coronary artery disease involving [place] heart without angina pectoris, unspecified vessel or [...] MEALS 180 Tablet 3 08/29/2023 Active Pen [place] 32G X 4 MMIndications:Type 2 diabetes mellitus [...] DINNER 90 Tablet 1 02/01/2024 Active Tiotropium [place]-Olodaterol 2.5-2.5 MCG/ACT Inhalation Aerosol Solution (Stiolto Respimat)Indications: [...] the morning. 30 Tablet 5 05/14/2024 Active documented as of this encounter [...] Dr Kaushal Giang. 11/19/20 MRI C-Spine in [place]. DDD most C5-6. Mod central canal and [...] (coronary artery disease) 07/07/2012 Overview: STENT 2007 [place], [place] 2004 HTN, goal below 140/90 04/10/2012 Overview: Per HTN Protocol #27. ADVANCE DIRECTIVE INFORMATION 03/19/2010 Overview: Information offered-patient declined. Type 2 diabetes mellitus wit h hemoglobin A1c goal of less than 8.0% 08/06/2009 Overview: Per Lipid Taxonomy. ICD-10 update of inactive term Old myocardial infarct 03/13/2009 Overview: INFEROLATERAL [place] 2003 Chronic rhinitis 10/07/2008 Gastroparesis 04/27/2007 Sarcoidosis 05/12/2005 Overview: DX 2004 EGD showing nonnecrotizing granuloma stomach + wt loss. Saw pulm. FAMILY HX-GI MALIGNANCY 02/09/2005 documented as of this encounter (statuses as of 05/14/2024) Resolved Problems Problem Noted Date Diagnosed Date Resolved Date Coronary artery disease invo lving [place] coronary artery of [place] heart with unstable angina pectoris 09/05/2019 08/06/2021 [...] myocardial infarction 03/13/2009 Overview: Modified by Acute [place] Protocol #5. Major depressive disorder, r ecurrent episode, moderate 06/13/2013 documented as of this encounter (statuses as of 05/14/2024) Immunizations Name Administration Dates Next Due COVID-19 mRNA, LNP-s, No Pre serve, 2-Dose Series (Moderna) 10/27/2020,09/29/2020 COVID-19, LNP-s, No Preserve , Klaus-sucrose, Ages 12+ (Pfizer) 03/17/2022 COVID-19, MRNA-LNP, 23-24, P F, 30 MCG/0.3 mL, 12 YRS AND ABOVE, IM (Filao-Comirnaty) 06/07/2023 COVID-19, mRNA, LNP-s, PF, B ooster, [...] 05/14/2024 11:20 AM EDT Office Visit Neurology [facility] [address] [place] [address] Ivy Broussard PA-C 200 [facility] [place] [address] 05/28/2024 10:30 AM EDT Telemedicine Psychiatry, [facility] [address] [place] [address] Pedro Luis Casas CRNP [address] [place] [address] 05/29/2024 10:30 AM EDT Office Visit Pharmacy, [facility] [address] [place] [address] [facility] [address] [place] [address] 06/04/2024 11:00 AM EDT Office Visit Orthopaedics [facility] [address] [place] [address] Bill Reilly MD [address] [place] [address] 06/28/2024 9:30 AM EST Office Visit Cardiology, [facility] [address] [place] [address] Markell Brooks PA-C [address] [place] [address] 08/28/2024 9:00 AM EST Office Visit Rheumatology [place] [address] [facility] [place] [address] Matthew Mari MD [facility] [place] [address] 09/17/2024 11:30 AM EST Office Visit Hematology/Oncology [facility] [address] [place] [phone] Angela Renteria CRNP [address] [place] [address] 11/19/2024 9:20 AM EDT Office Visit Hepatology, [facility] [address] [place] [address] Lali Chowdhury DO [address] [place] [address] 05/31/2025 9:20 AM EDT Office Visit Family Practice [facility] [address] [place] [address] Brent Smith MD [address] [facility] [place] [address] Health Maintenance Due Date Last Done Comments [...] Additional history exists CKD PHOS USE SMARTSET 23495 08/05/202407/22, 08/09/2022, 08/06/2021, Additional history exists Diabetic [...] 03/27/2024, 10/21/19 22 CKD HGB USE SMARTSET 89967 05/10/202505/10, 05/10/2024, 03/12/2024, Additional history exists Depression [...] Documents on File Type Date Recorded Patient Dermatology Nurse 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 Care Teams Human Service Worker Relationship Specialty Start Date End Date Brent Smith MD [address] [facility] [place] [address] PCP - General Family Medicine 04/20/23 documented as of this encounter
--- OUTSIDE RECORDS SUMMARY | 2024-08-09 14:42 | External Medical Summary | Summary of Care ---
Author Name Unknown Organization [facility] Address [address] [facility] [place] [address] Phone [phone] Care Team Providers Care Garment Alteration Examiner Name Role Phone Brent Smith MD Primary Care Provider + Encounter Details Date Type Department Care Team (Late st Contact Info) Description 05/14/2024 Orders Only PATIENT PORTAL DO NOT DELETE THIS DEPT USED BY [place] [id number] Allergies Active Allergy Reactions Criticality Noted Date [...] 90 Tablet 3 04/01/2023 Active Nystatin-Triamcinolon e 995436-4.1 UNIT/GM-% External Ointment (Mycolog)Indications: Dermatitis Apply topically to affected area 3 times a day. Apply to affected area 15 g 1 04/18/2023 Active Furosemide 20 MG Oral Tablet (Lasix)Indications:HT N, goal below 140/90,Coronary artery disease involving [place] heart without angina pectoris, unspecified vessel or [...] MEALS 180 Tablet 3 08/29/2023 Active Pen [place] 32G X 4 MMIndications:Type 2 diabetes mellitus [...] DINNER 90 Tablet 1 02/01/2024 Active Tiotropium [place]-Olodaterol 2.5-2.5 MCG/ACT Inhalation Aerosol Solution (Stiolto Respimat)Indications: [...] xray 07/07/16 Well adult exam 03/12/2016 Overview: DECEMBER-hon. Sees Stefania [place]. 03/09 starting new therapist Stefania. with leukoencepholopathy 11/12 Colon WNL. Angie 10y? EGD WNL (dilated) 02/11 EUS/FNA done. 11/11 Upper endoscopy ok. 12/10 in [place]--upper/lower scope WNL--angie [address] Kaushal Giang. 11/19/20 MRI C-Spine in [place]. DDD most C5-6. Mod central canal and mod left foraminal stenosis. Had C5-6 b/l NATAN 03/10 colon @[facility]--WNL angie 10y 03/07 MRI lumbar some [...] (coronary artery disease) 07/07/2012 Overview: STENT 2007 [facility], [place] 2004 HTN, goal below 140/90 04/10/2012 Overview: Per HTN Protocol #27. ADVANCE DIRECTIVE INFORMATION 03/19/2010 Overview: Information offered-patient declined. Type 2 diabetes mellitus wit h hemoglobin A1c goal of less than 8.0% 08/06/2009 Overview: Per Lipid Taxonomy. ICD-10 update of inactive term Old myocardial infarct 03/13/2009 Overview: INFEROLATERAL [place] 2004 Chronic rhinitis 10/07/2008 Gastroparesis 04/27/2007 Sarcoidosis 05/12/2005 Overview: DX 2004 EGD showing nonnecrotizing granuloma stomach + wt loss. Saw pulm. FAMILY HX-GI MALIGNANCY 02/09/2005 documented as of this encounter (statuses as of 05/14/2024) Resolved Problems Problem Noted Date Diagnosed Date Resolved Date Coronary artery disease invo lving [place] coronary artery of [place] heart with unstable angina pectoris 09/05/2019 08/06/2021 [...] myocardial infarction 03/13/2009 Overview: Modified by Acute [place] Protocol #5. Major depressive disorder, r ecurrent episode, moderate 06/13/2013 documented as of this encounter (statuses as of 05/14/2024) Immunizations Name Administration Dates Next Due COVID-19 mRNA, LNP-s, No Pre serve, 2-Dose Series (Moderna) 10/27/2020,09/29/2020 COVID-19, LNP-s, No Preserve , Klaus-sucrose, Ages 12+ (Pfizer) 03/17/2022 COVID-19, MRNA-LNP, 23-24, P F, 30 MCG/0.3 mL, 12 YRS AND ABOVE, IM (Shahiya-Comircritical access hospitalDentLight) 06/07/2023 COVID-19, mRNA, LNP-s, PF, B ooster, 100mcg/0.5mg (Moderna) 07/03/2021 Covid-19, Mrna, Lnp-s, Pf, B ivalent, 30 Mcg, IM, 12 yrs and above (Tagasauris) 08/18/2022 H1N1 2009 Influenza, IM 09/05/2009 Hepatitis [...] Tobacco: Every Day Cigarettes 0.5 59.7 Started: 1964 Passive Smoke Exposure: Past Smokeless [...] 18 years and over) Not on file 3 Are you (or your family) travon eless [...] 05/14/2024 11:20 AM EDT Office Visit Neurology [facility] [address] [place], [place] [address] Ivy Broussard PA-C [address] [place] [address] 05/28/2024 10:30 AM EDT Telemedicine Psychiatry, [facility] [address] [place] [address] Pedro Luis Casas CRNP [address] [place] [address] 05/29/2024 10:30 AM EDT Office Visit Pharmacy, [facility] [address] [facility] [place] [address] [facility] [place] [address] 06/04/2024 11:00 AM EDT Office Visit Orthopaedics [facility] 132 [facility] [place] [address] Bill Reilly MD [address] [facility] [place] [address] 06/28/2024 9:30 AM EST Office Visit Cardiology, [facility] [place] [address] Markell Brooks PA-C [address] [place] [address] 08/28/2024 9:00 AM EST Office Visit Rheumatology [facility] [address] [facility] [place] [address] Matthew Mari MD [address] [facility] [place] [address] 09/17/2024 11:30 AM EST Office Visit [facility]ematology/[facility] [place] [address] [place] [phone] Angela Renteria CRNP [address] [place] [address] 11/19/2024 9:20 AM EDT Office Visit Hepatology, [facility] [address] [place] [address] Lali Chowdhury DO [address] [place] [address] 05/31/2025 9:20 AM EDT Office Visit Family Practice [facility] [address] [place] [address] Brent Smith MD [address] [place] [address] Health Maintenance Due Date Last Done Comments [...] Additional history exists CKD PHOS USE SMARTSET 65518 08/05/202407/22, 08/09/2022, 08/06/2021, Additional history exists Diabetic Foot Exam 08/05/2024 08/05/2023, 1 09/18/2021, 09/04/2021, Additional history exists GFR 11/07/2024 05/10/2024, 06/0 02/2024, 10/25/2023, Additional history exists HbA1c 11/07/2024 05/10/2024, 06/0 02/2024, 10/25/2023, Additional history exists O2 ASSESSMENT COMPLETED IN PAST YEAR FOR COPD 11/30/2024 12/01/2023 B-12 12/14/2024 12/15/2023, 05/22, 11/12/2022, Additional history exists Adult Wellness Visit 03/27/2025 03/27/2024, 10/21/19 CKD HGB USE SMARTSET 01850 05/10/202505/10, 05/10/2024, 03/12/2024, Additional history exists Depression [...] Documents on File Type Date Recorded Patient Journey Lineman 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 Care Teams Garment Alteration Examiner Relationship Specialty Start Date End Date Brent Smith MD [address] [place] [address] PCP - General Family Medicine 04/20/23 documented as of this encounter
--- OUTSIDE RECORDS SUMMARY | 2024-08-09 14:42 | External Medical Summary | Summary of Care ---
Author Name Unknown Organization [facility] Address [address] [facility] [place] [address] Phone [phone] Care Team Providers Care Chemical Dependency Nurse Name Role Phone Brent Smith MD Primary Care Provider + Reason for Visit * Reason Onset Date Comments Medication Pre-auth 05/22/2024 Encounter Details Date Type Department Care Team (Late st Contact Info) Description 05/22/2024 Telephone Neurology [facility] [address] [place] [address] Ivy Rodrigues MD 200 [place] [address] Medication Pre-auth Allergies Active Allergy Reactions Criticality Noted Date [...] 90 Tablet 3 04/01/2023 Active Nystatin-Triamcinolon e 486089-6.1 UNIT/GM-% External Ointment (Mycolog)Indications: Dermatitis Apply topically to affected area 3 times a day. Apply to affected area 15 g 1 04/18/2023 Active Furosemide 20 MG Oral Tablet (Lasix)Indications:HT N, goal below 140/90,Coronary artery disease involving [place] heart without angina pectoris, unspecified vessel or [...] MEALS 180 Tablet 3 08/29/2023 Active Pen [place] 32G X 4 MMIndications:Type 2 diabetes mellitus [...] DINNER 90 Tablet 1 02/01/2024 Active Tiotropium [place]-Olodaterol 2.5-2.5 MCG/ACT Inhalation Aerosol Solution (Stiolto Respimat)Indications: [...] Dr Kaushal Giang. 11/19/20 MRI C-Spine in [place]. DDD most C5-6. Mod central canal and mod left foraminal stenosis. Had C5-6 b/l NATAN 03/10 colon @[facility]--WNL angie 10y 03/07 MRI lumbar some arthritis [...] (coronary artery disease) 07/07/2012 Overview: STENT 2008 [facility] [place], [place] 2004 HTN, goal below 140/90 04/10/2012 Overview: Per HTN Protocol #27. ADVANCE DIRECTIVE INFORMATION 03/19/2010 Overview: Information offered-patient declined. Type 2 diabetes mellitus wit h hemoglobin A1c goal of less than 8.0% 08/06/2009 Overview: Per Lipid Taxonomy. ICD-10 update of inactive term Old myocardial infarct 03/13/2009 Overview: INFEROLATERAL [place] 2003 Chronic rhinitis 10/07/2008 Gastroparesis 04/27/2007 Sarcoidosis 05/12/2005 Overview: DX 2004 EGD showing nonnecrotizing granuloma stomach + wt loss. Saw pulm. FAMILY HX-GI MALIGNANCY 02/09/2005 documented as of this encounter (statuses as of 05/22/2024) Resolved Problems Problem Noted Date Diagnosed Date Resolved Date Coronary artery disease invo lving [place] coronary artery of [place] heart with unstable angina pectoris 09/05/2019 08/06/2021 [...] myocardial infarction 03/13/2009 Overview: Modified by Acute [place] Protocol #5. Major depressive disorder, r ecurrent episode, moderate 06/13/2013 documented as of this encounter (statuses as of 05/22/2024) Immunizations Name Administration Dates Next Due COVID-19 mRNA, LNP-s, No Pre serve, 2-Dose Series (Moderna) 10/27/2020,09/29/2020 COVID-19, LNP-s, No Preserve , Klaus-sucrose, Ages 12+ (Pfizer) 03/17/2022 COVID-19, MRNA-LNP, 23-24, P F, 30 MCG/0.3 mL, 12 YRS AND ABOVE, IM (CEED Tech-Comirnaty) 06/07/2023 COVID-19, mRNA, LNP-s, PF, B ooster, [...] No 05/18/2023 Does the household have a [facility] source of income? (Household - for ages [...] Self- administered - route pre-cert request to [id number] See corresponding visit note(s) for additional supporting clinical information. Office Information: Prescriber: Ivy Rodrigues MD documented in this encounter Plan of Treatment Upcoming Encounters Date Type Department Care Team (Late st Contact Info) Description 05/28/2024 10:30 AM EDT Telemedicine Psychiatry, [facility] [address] [place] [address] Pedro Luis aCsas CRNP [address] [place] [address] 05/29/2024 9:45 AM EDT Immunization [facility] [address] [place] [address] [facility] [address] [place] [address] 05/29/2024 10:30 AM EDT [facility] [address] [place] [address] [facility] [place] [address] 06/04/2024 11:00 AM EDT Office Visit Orthopaedics [facility] [place] [address] [place] [address] Bill Reilly MD [address] [place] [address] 06/28/2024 9:30 AM EST Office Visit Cardiology, [facility] 132 [facility] [place] [address] Markell Brooks PAEddyC 132 [facility] [place] [address] 08/28/2024 9:00 AM EST Office Visit Rheumatology [place] [phone] [facility] [place] [address] Matthew Mari MD [facility] [place] [address] 09/17/2024 11:30 AM EST Office Visit Hematology/Oncology [facility] [address] [place] [phone] Angela Renteria CRNP 400 [facility] [place] [address] 11/19/2024 9:20 AM EDT Office Visit Hepatology, [facility] [address] [place] [address] Lali Chowdhury DO 132 [facility] [place] [address] 11/20/2024 7:00 AM EDT Office Visit Neurology [facility] [address] [facility] [place] [address] Kendra Montano PA-C [facility] [place] [address] 05/31/2025 9:20 AM EDT Office Visit Family Practice [facility] [address] [place] [address] Brent Smith MD [address] [place] [address] Health Maintenance Due Date Last Done Comments [...] Additional history exists CKD PHOS USE SMARTSET 27726 08/05/202407/22, 08/09/2022, 08/06/2021, Additional history exists Diabetic Foot Exam 08/05/2024 08/05/2023, 1 09/18/2021, 09/04/2021, Additional history exists GFR 11/07/2024 05/10/2024, 06/0 02/2024, 10/25/2023, Additional history exists HbA1c 11/07/2024 05/10/2024, 06/0 02/2024, 10/25/2023, Additional history exists O2 ASSESSMENT COMPLETED IN PAST YEAR FOR COPD 11/30/2024 12/01/2023 B-12 12/14/2024 12/15/2023, 05/22, 11/12/2022, Additional history exists Adult Wellness Visit 03/27/2025 03/27/2024, 10/21/19 CKD HGB USE SMARTSET 88538 05/10/202505/10, 05/10/2024, 03/12/2024, Additional history exists Depression [...] Documents on File Type Date Recorded Patient Head Of English 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 Care Teams Chemical Dependency Nurse Relationship Specialty Start Date End Date Brent Smith MD [address] [place] [address] PCP - General Family Medicine 04/20/23 documented as of this encounter
--- OUTSIDE RECORDS SUMMARY | 2024-08-09 14:43 | External Medical Summary | Summary of Care ---
Author Name Unknown Organization [facility] Address [address] [facility] [place] [address] Phone [phone] Care Team Providers Care Belt Loop Machine Operator Name Role Phone Brent Smith MD Primary Care Provider + Reason for Visit * Reason Comments Outpatient Testing Encounter Details Date Type Department Care Team (Late st Contact Info) Description 05/10/2024 7:40 AM EDT Laboratory Laboratory, [facility] [address] [facility] [address] [place] [phone] [facility] [address] [place] [address] Sarcoidosis; Abnormal LFTs; Inflammatory polyarthritis (HCC); Type 2 diabetes mellitus with hemoglobin A1c goal of less than 8.0% ([facility]) Allergies Active Allergy Reactions Criticality Noted Date [...] as of this encounter (statuses as of 05/10/2024) Medications Medication Sig Dispensed Refills Start Date [...] BEFORE BEDTIME 90 Tablet 3 04/01/2023 Active Nystatin-Triamcinolo ne 831738-7.1 UNIT/GM-% External Ointment (Mycolog)Indications :Dermatitis Apply topically to affected area 3 times a day. Apply to affected area 15 g 1 04/18/2023 Active Furosemide 20 MG Oral Tablet (Lasix)Indications:H TN, goal below 140/90,Coronary artery disease involving [place] heart without angina pectoris, unspecified vessel or [...] MEALS 180 Tablet 3 08/29/2023 Active Pen [place] 32G X 4 MMIndications:Type 2 diabetes mellitus [...] than 8.0% ([facility]) Use to test blood sugar twice daily [...] 12/07/2023 Active clonazePAM 1 MG Oral Tablet (KlonoPIN)Indication s:HILLARY (generalized anxiety disorder) 1/2 tab in evening by mouth. You may take an extra 1/2 tab daily as needed for anxiety. 135 Tablet 1 12/29/2023 Active Chlorzoxazone 500 MG Oral TabletIndications:Helen mbar [...] DINNER 90 Tablet 1 02/01/2024 Active Tiotropium [place]-Olodaterol 2.5-2.5 MCG/ACT Inhalation Aerosol Solution (Stiolto Respimat)Indications [...] the morning. 90 Tablet 3 04/10/2024 Active documented as of this encounter (statuses as of 05/10/2024) Active Problems Problem Noted Date Diagnosed Date COPD, group B, by GOLD 2017 classification [...] xray 07/07/16 Well adult exam 03/12/2016 Overview: VIRGILIOhon. Sees Stefania Troy. 03/09 starting new therapist Stefania. with leukoencepholopathy 11/12 Colon WNL. Angie 10y? EGD WNL (dilated) 02/11 EUS/FNA done. 11/11 Upper endoscopy ok. 4/21 in [place]--upper/lower scope WNL--angie [address] Kaushal Giang. 11/19/20 MRI C-Spine in [place]. DDD most C5-6. Mod central canal and mod left foraminal stenosis. Had C5-6 b/l NATAN 03/10 colon @[facility]--WNL angie 10y 03/07 MRI lumbar some arthritis [...] artery disease) 07/07/2012 Overview: STENT 2007 [facility], [place] 2004 HTN, goal below 140/90 [...] as of this encounter (statuses as of 05/10/2024) Resolved Problems Problem Noted Date Diagnosed Date Resolved Date Coronary artery disease invo lving [place] coronary artery of [place] heart with unstable angina pectoris 09/05/2019 08/06/2021 [...] as of this encounter (statuses as of 05/10/2024) Immunizations Name Administration Dates Next Due COVID-19 mRNA, LNP-s, No Pre serve, 2-Dose Series (Moderna) 10/27/2020,09/29/2020 COVID-19, LNP-s, No Preserve , Klaus-sucrose, Ages 12+ (Pfizer) 03/17/2022 COVID-19, MRNA-LNP, 23-24, P F, 30 MCG/0.3 mL, 12 YRS AND ABOVE, IM [facility] 06/07/2023 COVID-19, mRNA, LNP-s, PF, B ooster, [...] Seasonal Influenza, Quadriva lent, No Preserve, IM 05/10/2017,06/24/2016,05/27/2015 06/24/2017 Seasonal Influenza, Trivalen t, (IIV3), with Preserv, [...] Passive Smoke Exposure: Past Smokeless Tobacco: Never Comments:08/23 ppd;08/19/21,ti red to quit 8 times, x [...] Care Team (Late st Contact Info) Description 05/10/2024 8:20 AM EDT Office Visit Hepatology, [facility] [address] [place] [address] Lali Chowdhury, [address] [place] [address] Arrived 05/10/2024 9:20 AM EDT Office Visit Family Practice [facility] [address] [place] [address] Brent Smith MD [address] [place] [address] 05/28/2024 10:30 AM EDT Telemedicine Psychiatry, [facility] [address] [place] [address] Pedro Luis Casas CRNP [address] [place] [address] 05/29/2024 10:30 AM EDT Office Visit Pharmacy, [facility] [address] [place] [address] [facility] [address] [place] [address] 06/04/2024 11:00 AM EDT Office Visit Orthopaedics [facility] [address] [place] [address] Bill Reilly MD [address] [place] [address] 06/28/2024 9:30 AM EST Office Visit Cardiology, [facility] [address] [place] [address] Markell Brooks PA-C [address] [place] [address] 08/28/2024 9:00 AM EST Office Visit Rheumatology [place] [address] Alex Jarrell [place] [address] Matthew Mari MD [facility] [place] [address] 09/17/2024 11:30 AM EST Office Visit Hematology/Oncology [facility] [place] [address] [place] [phone] Angela Renteria CRNP [address] [place] [address] Pending Results Name Type Priority Associated Diagnoses Date /Time CBC WITH WBC DIFFERENTIAL Lab Routine Sarcoidosis 05/10/2024 7:42 AM EDT COMPREHENSIVE METABOLIC PANEL Lab Routine Sarcoidosis 05/10/2024 7:42 AM EDT HEMOGLOBIN A1C Lab Routine Type 2 diabetes mellitus with hemoglobin A1c goal of less than 8.0% ([facility]) 05/10/2024 7:42 AM EDT CBC Lab Routine Sarcoidosis 05/10/2024 7:42 AM EDT DIFFERENTIAL, AUTOMATED Lab Routine Sarcoidosis 05/10/2024 7:42 AM EDT BILIRUBIN, DIRECT Lab Routine Abnormal LFTs 05/10/2024 7:42 AM EDT Health Maintenance Due Date Last Done Comments Cologuard 1995 Sigmoidoscopy 1995 Fecal Occult Blood Test 01/20/2013 01/21/20 12, 10/07/2000, 10/05/1996 DISCUSS TOBACCO CESSATION (REFER TO SMARTSET #3291) 05/10/2018 05/10/2017 (Discussed) Depression Monitoring 09/04/2022 09/04/2021 Mammogram 12/10/2023 12/09/2022, 11/21, 08/20/2021, Additional history exists COVID-19 Vaccine ( season) 2024 06/07/2023, 08/18/2022, 03/17/2022, Additional history exists Influenza Vaccine (FLU shot) (#1) 2024 05/06/2023, 05/13/2022, 06/16/2021, Additional history exists Diabetic Eye Exam 06/30/2024 06/30/2023, (Done elsewhere), 06/30/2023, Additional history exists GFR 07/28/2024 01/27/2024, 03/0 12/2023, 08/05/2023, Additional history exists HbA1c 07/28/2024 01/27/2024, 03/0 12/2023, 08/05/2023, Additional history exists Albumin/Creatinine Ratio 08/05/2024 023, 05/06/2023, 07/10/2022, Additional history exists CKD PHOS USE SMARTSET 40686 08/05/202407/22, 08/09/2022, 08/06/2021, Additional history exists Diabetic Foot Exam 08/05/2024 08/05/2023, 1 09/18/2021, 09/04/2021, Additional history exists O2 ASSESSMENT COMPLETED IN PAST YEAR FOR COPD 11/30/2024 12/01/2023 B-12 12/14/2024 12/15/2023, 05/22, 11/12/2022, Additional history exists CKD HGB USE SMARTSET 28805 03/12/202503/12, 03/12/2024, 02/14/2024, Additional history exists Adult Wellness Visit 03/27/2025 03/27/2024, 10/21/19 22 Colonoscopy 11/30/2028 12/01/2023, 11/20, 12/16/2020, Additional history [...] as of this encounter Visit Diagnoses Diagnosis Sarcoidosis Abnormal LFTs Other abnormal blood chemistry Inflammatory polyarthritis (HCC) Unspecified inflammatory polyarthropathy Type 2 diabetes mellitus with hemoglobin A1c goal of less than 8.0% (HCC) documented in this encounter Advance Directives Documents on File Type Date Recorded Patient Staff Assistant 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 Care Teams Belt Loop Machine Operator Relationship Specialty Start Date End Date Brent Smith MD [address] [place] [address] PCP - General Family Medicine 04/20/23 documented as of this encounter
--- OUTSIDE RECORDS SUMMARY | 2024-08-09 14:43 | External Medical Summary ---
Author Name Unknown Address Unknown Organization [facility] [address] [place] [address] Laboratory Report Ordering Provider Test Date Status BATOOLRAHEEL 05/10/2024 07:42:53 Final Observation Date Value Abnormality Reference (Units ) Status Bilirubin, Direct 05/10/2024 07:42:53 <0.2 0. 0-0.3 (mg/dL) Final Performing Location [facility] - [address] [place] [address]
--- OUTSIDE RECORDS SUMMARY | 2024-08-09 14:43 | External Medical Summary ---
Author Name Unknown Address Unknown Organization [facility] [address] [place] [address] Laboratory Report Ordering Provider Test Date Status CHARLI MARC 05/10/2024 07:42:53 Final Observation Date Value Abnormality Reference (Units ) Status SYNC LEUKOCYTES IN BLOOD BY AUTOMATED COUNT 05/10/2024 07:42:53 5.45 4.00-10.80 (K/uL) Final Segs 05/10/2024 07:42:53 65.2 40.0-75.0 (%) Final Lymphs % 05/10/2024 07:42:53 29.9 18.0-42.0 (%) Final Monos 05/10/2024 07:42:53 3.9 1.0-11.0 (%) Final Eosinophils 05/10/2024 07:42:53 0.4 0.0-6.0 (%) Final Basos 05/10/2024 07:42:53 0.6 0.0-2.0 (%) Final Absolute Segs 05/10/2024 07:42:53 3.56 1.80-7.70 (K/uL) Final Lymphs, absolute 05/10/2024 07:42:53 1.63 1.00-4.80 (K/ul) Final Monos, Abs 05/10/2024 07:42:53 0.21 0.00-1.10 (K/uL) Final Eos, Abs 05/10/2024 07:42:53 0.02 0.00-0.70 (K/uL) Final Basos, Abs 05/10/2024 07:42:53 0.03 0.00-0.20 (K/uL) Final Performing Location [facility] [address] [place] [address]
--- OUTSIDE RECORDS SUMMARY | 2024-08-09 14:43 | External Medical Summary ---
Author Name Unknown Address Unknown Organization [facility] [place] [address] - [address] [place] [address] Laboratory Report Ordering Provider Test Date Status MONICOCHARLI 05/10/2024 07:42:53 Final Observation Date Value Abnormality Reference (Units ) Status BUN 05/10/2024 07:42:53 22 Above high normal 6-20 (mg/dL) Final Creatinine 05/10/2024 07:42:53 1.1 Above high normal 0.5-1.0 (mg/dL) Final Glomerular filtration rate/1.73 sq M.predicted [Volume Rate/Area] in Serum, Plasma or Blood by Creatinine-based formula (CKD-EPI) 05/10/2024 07:42:53 52 Below low normal >=60 (mL/min) Final eGFR is calculated based on the CKD-EPI 2020 equation. Sodium 05/10/2024 07:42:53 134 Below low normal 135 -146 (mmol/L) Final Potassium 05/10/2024 07:42:53 4.7 3.5-5.1 (m mol/L) Final Cl 05/10/2024 07:42:53 98 98-107 (mm ol/L) Final CO2 05/10/2024 07:42:53 26 22-32 (mmo l/L) Final Anion gap 05/10/2024 07:42:53 10 7-15 (mmol /L) Final Glucose 05/10/2024 07:42:53 330 Above high normal 70 -120 (mg/dL) Final Albumin 05/10/2024 07:42:53 4.1 3.8-5.0 (g /dL) Final AST (Aspartate aminotransferase) 05/10/2024 07:42:53 34 10-35 (U/L) Fin al Alk Phos 05/10/2024 07:42:53 66 35-130 (U/ L) Final Bilirubin, Total 05/10/2024 07:42:53 0.3 <=1 .2 (mg/dL) Final Calcium 05/10/2024 07:42:53 9.5 8.4-10.2 ( mg/dL) Final Protein 05/10/2024 07:42:53 6.9 6.0-8.3 (g /dL) Final ALT (Alanine aminotransferase) 05/10/2024 07:42:53 20 10-35 (U/L) Jerome ibarra Performing Location [facility] [place] [address] [facility] [address]
--- OUTSIDE RECORDS SUMMARY | 2024-08-09 14:43 | External Medical Summary | Summary of Care ---
Author Name Unknown Organization [facility] Address [address] [facility] [place] [address] Phone [phone] Care Team Providers Care Reel Winder Name Role Phone Brent Smith MD Primary Care Provider + Reason for Visit * Reason Onset Date Comments Test Results Lab 05/10/2024 Encounter Details Date Type Department Care Team (Late st Contact Info) Description 05/10/2024 Telephone Hepatology, [facility] [address] [place] [address] Lali Chowdhury DO [address] [place] [id number] Test Results Lab Allergies Active Allergy Reactions Criticality Noted Date [...] 90 Tablet 3 04/01/2023 Active Nystatin-Triamcinolon e 370558-1.1 UNIT/GM-% External Ointment (Mycolog)Indications: Dermatitis Apply topically to affected area 3 times a day. Apply to affected area 15 g 1 04/18/2023 Active Furosemide 20 MG Oral Tablet (Lasix)Indications:HT N, goal below 140/90,Coronary artery disease involving [place] heart without angina pectoris, unspecified vessel or [...] MEALS 180 Tablet 3 08/29/2023 Active Pen [place] 32G X 4 MMIndications:Type 2 diabetes mellitus [...] hemoglobin A1c goal of less than 8.0% ([facility]) Use to test blood sugar twice daily [...] 90 Tablet 1 02/01/2024 Active Tiotropium [place]-Olodaterol 2.5-2.5 MCG/ACT Inhalation Aerosol Solution (Stiolto Respimat)Indications: [...] for headache 10 Tablet 5 05/10/2024 Active documented as of this encounter (statuses [...] C5-6 b/l NATAN 03/10 colon @[facility]--WNL angie 10y 03/07 MRI lumbar some [...] (coronary artery disease) 07/07/2012 Overview: STENT 2008 [facility], [place] 2004 HTN, goal below 140/90 04/10/2012 Overview: Per HTN Protocol #27. ADVANCE DIRECTIVE INFORMATION 03/19/2010 Overview: Information offered-patient declined. Type 2 diabetes mellitus wit h hemoglobin A1c goal of less than 8.0% 08/06/2009 Overview: Per Lipid Taxonomy. 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 Saw pulm. FAMILY HX-GI MALIGNANCY 02/09/2005 documented as of this encounter (statuses as of 05/10/2024) Resolved Problems Problem Noted Date Diagnosed Date Resolved Date Coronary artery disease invo lving [place] coronary artery of [place] heart with unstable angina pectoris 09/05/2019 08/06/2021 [...] myocardial infarction 03/13/2009 Overview: Modified by Acute [place] Protocol #5. Major [...] Telephone Encounter - Lali Chowdhury DO - 05/10/2024 4:12 PM EDT Please let patient know her liver enzymes from today are all completely normal. No new medication changes needed at this time. Lali Chowdhury DO documented in this encounter Plan of Treatment Upcoming Encounters Date Type Department Care Team (Late st Contact Info) Description 05/14/2024 11:20 AM EDT Office Visit [facility] [address] [place] [address] Ivy Broussard PA-C [address] [facility] [place] [address] 05/28/2024 10:30 AM EDT Telemedicine Psychiatry, [facility] [address] [place] [address] Pedro Luis Casas CRNP [address] [place] [address] 05/29/2024 10:30 AM EDT Office Visit Pharmacy, [facility] [address] [place] [address] [facility] [address] [place] [address] 06/04/2024 11:00 AM EDT Office Visit Orthopaedics [facility] [address] [place] [address] Bill Reilly MD [address] [place] [address] 06/28/2024 9:30 AM EST Office Visit Cardiology, [facility] [address] [place] [address] Markell Brooks PA-C [address] [place] [address] 08/28/2024 9:00 AM EST Office Visit Rheumatology [facility] [address] [facility] [place], [place] [address] Matthew Mari MD [address] [facility] [place], [place] [address] 09/17/2024 11:30 AM EST Office Visit Hematology/Oncology [facility] [address] [facility] [place] [phone] Angela Renteria CRNP [address] [facility] [place] [address] 11/19/2024 9:20 AM EDT Office Visit Hepatology, [facility] [address] [place] [address] Lali Chowdhury DO [address] [place] [address] 05/31/2025 9:20 AM EDT Office Visit Family Practice [facility] [address] [place] [address] Brent Smith MD [address] [place] [address] Health Maintenance Due Date Last Done Comments Cologuard 1995 Sigmoidoscopy 1995 Fecal Occult Blood Test 01/20/2013 01/21/20 12, 10/07/2000, 10/05/1996 DISCUSS TOBACCO CESSATION (REFER TO SMARTSET #3291) 05/10/2018 05/10/2017 (Discussed) Mammogram 12/10/2023 12/09/2022, 04, 08/20/2021, Additional history exists COVID-19 Vaccine ( season) 2024 06/07/2023, 08/18/2022, 03/17/2022, Additional history exists Influenza Vaccine (FLU shot) (#1) 2024 05/06/2023, 05/13/2022, 06/16/2021, Additional history exists Diabetic Eye Exam 06/30/2024 06/30/2023, (Done elsewhere), 06/30/2023, Additional history exists HbA1c 07/28/2024 05/10/2024, 06/0 02/2024, 10/25/2023, Additional history exists Albumin/Creatinine Ratio 08/05/2024 023, 05/06/2023, 07/10/2022, Additional history exists CKD PHOS USE SMARTSET 62721 08/05/202407/22, 08/09/2022, 08/06/2021, Additional history exists Diabetic Foot Exam 08/05/2024 08/05/2023, 1 09/18/2021, 09/04/2021, Additional history exists GFR 11/07/2024 05/10/2024, 06/0 02/2024, 10/25/2023, Additional history exists O2 ASSESSMENT COMPLETED IN PAST YEAR FOR COPD 11/30/2024 12/01/2023 B-12 12/14/2024 12/15/2023, 05/22, 11/12/2022, Additional history exists Adult Wellness Visit 03/27/2025 03/27/2024, 10/21/19 22 CKD HGB USE SMARTSET 81415 05/10/202505/10, 05/10/2024, 03/12/2024, Additional history exists Depression [...] Documents on File Type Date Recorded 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 Care Teams Reel Winder Relationship Specialty Start Date End Date Brent Smith MD [address] [place] [address] PCP - General Family Medicine 04/20/23 documented as of this encounter
--- OUTSIDE RECORDS SUMMARY | 2024-08-09 14:43 | External Medical Summary | Summary of Care ---
Author Name Unknown Organization [facility] Address [address] [place] [address] Phone [phone] Care Team Providers Care Coverstitch Binder Name Role Phone Brent Smith MD Primary Care Provider + Reason for Referral * Medication Prior Authorization - Closed Specialty Diagnoses / Procedures Referred By Chayo brennan Referred To Contact Diagnoses Daily headache Migraine with aura and without status migrainosus, not intractable Brent Smith MD [address] [place] [address] Referral ID Status Reason Start Date Expiration Date Visits Re quested Visits Authorized [id number] Closed 999 999 * Evaluate & Treat - Unlimited Visits (Within 30 days (routine)) - Authorized Specialty Diagnoses / Procedures Referred By Chayo brennan Referred To Contact Neurology Diagnoses Daily headache Brent Smith MD [address] [place] [address] Referral ID Status Reason Start Date Expiration Date Visits Requested Visits Authorized [id number] Authorized Specialty Services Required 05/10/2024 999 999 Question Answer Referral Priority Within 30 days (routine) Where should this appointment be scheduled? [facility] This patient already has care established with Neurology. Do not place this order. Please use Ask A Doc to expedite care. Acknowledge Is this referral being placed for insurance purposes ONLY No, patient needs appointment [facility] NEUROLOGY REFERRAL QUESTIONS Headache Has the patient tried 1 abortive and 1 preventative medication? Yes Comments Daily all over ESETVES since iron treatments in December 2023. Still on her Ajovy and Elavil for migraines. These daily ESTEVES feel different than her migraines. Please sched with ESTEVES clinic. * Evaluate & Treat - Unlimited Visits (Within 10 days (routine)) - Authorized Specialty Diagnoses / Procedures Referred By Chayo t Referred To Contact Dermatology Diagnoses Skin abnormality Brent Smith MD [address] [place] [address] Dary Vallejo MD Referral ID Status Reason Start Date Expiration Date Visits Requested Visits Authorized [id number] Authorized Specialty Services Required 05/10/2024 999 999 Question Answer Referral Priority Within 10 days (routine) Where should this appointment be scheduled? [facility] Are you referring the patient for Mohs Surgery and have a current positive skin cancer biopsy result? No What is the reason for the patient referral? Rash/Skin Check/Eval of Lesion or Mole Comments Change in mole between breasts, darker, new raised. Reason for Visit * Reason Comments Physical-Exam Yearly physical Encounter Details Date Type Department Care Team (Late st Contact Info) Description 05/10/2024 9:20 AM EDT Office Visit Family [facility] [address] [place] [address] Brent Smith MD [address] [place] [address] Autoimmune hepatitis (HCC)*; Type 2 diabetes mellitus with hemoglobin A1c goal of less than 8.0% (HCC); Major depressive disorder, recurrent severe without psychotic features (HCC); Skin abnormality; Daily headache; Iron deficiency anemia, unspecified iron deficiency anemia type; Migraine with aura and without status migrainosus, not intractable Allergies Active Allergy Reactions Criticality Noted Date [...] evening. 02/05/2014 Active Blood Glucose Monitoring Suppl (StockdriftE) DEVIIndications:DM type 2, goal A1C below 8.0 [...] 90 Tablet 3 04/01/2023 Active Nystatin-Triamcinolon e 156222-5.1 UNIT/GM-% External Ointment (Mycolog)Indications: Dermatitis Apply topically to affected area 3 times a day. Apply to affected area 15 g 1 04/18/2023 Active Furosemide 20 MG Oral Tablet (Lasix)Indications:HT N, goal below 140/90,Coronary artery disease involving [place] heart without angina pectoris, unspecified vessel or lesion type,Encounter for monitoring diuretic therapy,Old myocardial infarct Take 1 Tablet by mouth in the morning. 90 Tablet 3 05/13/2023 Active metFORMIN HCl 1000 MG Oral Tablet (Glucophage)Indicatio ns:Type 2 diabetes mellitus with hemoglobin A1c goal of less than 8.0% ([facility]) TAKE 1 TABLET TWICE A DAY WITH MORNING AND EVENING MEALS 180 Tablet 3 08/29/2023 Active Pen Hooper 32G X 4 MMIndications:Type 2 diabetes mellitus with hemoglobin A1c goal of less than 8.0% ([facility]) Use as directed. To administer insulin. 100 Each 08/29/2023 Active Pioglitazone HCl 30 MG Oral Tablet (Actos) Take 1 Tablet by mouth in the morning. 90 Tablet 3 08/29/2023 Active FreeStyle LancetsIndications:Ty pe 2 diabetes mellitus with hemoglobin A1c goal of less than 8.0% ([facility]) Use to test blood sugar twice daily or as directed E11.9 180 Each 09/08/2023 Active FreeStyle Lite Test In Vitro Strip (Glucose Blood)Indications:Typ e 2 diabetes mellitus with hemoglobin A1c goal of less than 8.0% ([facility]) Use to test blood sugar twice [...] DINNER 90 Tablet 1 02/01/2024 Active Tiotropium Obion-Olodaterol 2.5-2.5 MCG/ACT Inhalation Aerosol Solution (Stiolto Respimat)Indications: [...] Dr Kaushal Giang. 11/19/20 MRI C-[place]ine in [place]. DDD most C5-6. Mod central canal and mod left foraminal stenosis. Had C5-6 b/l NATAN 03/10 colon @[facility]--WNL angie 10y 03/07 MRI lumbar some [...] artery disease) 07/07/2012 Overview: STENT 2008 [facility], [place] 2004 HTN, goal below 140/90 04/10/2012 [...] Resolved Date Coronary artery disease invo lving [place] coronary artery of [place] heart with unstable angina pectoris 09/05/2019 08/06/2021 [...] Preserve, IM 05/16/2020,05/10/2017,06/24/2016,1001/201506/24/2017 Seasonal Influenza, Trivalen t, (IIV3), with Preserv, [...] Sign Reading Time Taken Comments Blood Pressure 134/84 05/10/2024 9:22 AM EDT done w hepatology Pulse 66 05/10/2024 9:22 AM EDT Temperature 36.7 C (98 F) 05/10/2024 9:2 2 AM EDT Respiratory Rate 16 05/10/2024 9:22 AM EDT Oxygen Saturation 98% 05/10/2024 9:2 2 AM EDT Inhaled Oxygen Concentration - - Weight 61.4 kg (135 lb 6.4 oz) 05/10/2024 9:22 AM EDT Height 160 cm (5' 2.99") 05/10/2024 9:2 2 AM EDT Body Mass Index 23.99 05/10/2024 9:22 AM EDT documented in this encounter Functional [...] as of this encounter Progress Notes * Brent Smith MD - 05/10/2024 10:10 AM EDT SUBJECTIVE: Shelly Macdonald is a 73 year old female here for Physical-Exam (Yearly physical ) . Here for ckup. Hepatology consult from this morning. Detailed notes reviewed. Her autoimmune hepatitis is mild andthey are monitoring. She has been having some increased GERD so H2 do added. She has a historyof iron-deficiency anemia that required IV iron in December. She had complete workup no bleed was found. Ongoing bilateral hand pain has Dupuytren's contracture in left hand that makes it difficult to close fist all the way. Continues with methotrexate with Rheumatology for multiple joint pain and suspected autoimmune hepatitis. She complains of daily all over headaches since May iron infusions. This feels different than her regular migraine medicines. She continues on her Ajovy monthly along with her amitriptyline 10 mg nightly. She does not want to increase the amitriptyline due to increased appetite weight gain etc.. She has used different migraine medications for p.r.n. use such as Maxalt and Imitrex Zomig in the past without relief. Chronic low back pain no radiation no weakness no numbness. She occasionally will take 2 ibuprofen her to Tylenol which can help the headache or back does not take it regularly the prevent rebound headache. ROS: Negative except above. Past Medical History: Diagnosis Date ASCVD (arteriosclerotic cardiovascular disease) 07/07/2012 STENT 2007 [place], [place] 2003 Autoimmune hepatitis (HCC) 05/06/2023 CAD (coronary artery disease) 07/07/2012 STENT 2007 [place], [place] 2003 Cervical disc disorder 04/23/2014 Chronic [...] intractable 09/23/2015 Old myocardial infarct 03/13/2009 [place]OL[place]AL [place] 2004 LUISA (obstructive sleep apnea) 10/13/2017 S/P cardiac cath 10/17/2018 Sarcoidosis 05/12/2005 DX 2004 EGD showing nonnecrotizing granuloma stomach + wt loss. Saw pulm. Past Surgical History: Procedure Laterality Date CARDIAC CATH-CARDIOLOGY ONLY 11/06/2007 STENTED - taxus express 2 CARDIAC CATH-CARDIOLOGY ONLY 10/17/2018 2 stents LAD [facility] Dr Morales CARDIAC CATH-CARDIOLOGY ONLY 01/29/2019 drug eluiting stent LAD at [facility] CARPAL TUNNEL SURGERY Bilateral Carpal Tunnel repair COLONOSCOPY THRU STOMA, W/BIOPSY 06/15/2007 hyperplastic, repeat in 10 years COLONOSCOPY, DIAGNOSTIC (RECTUM) 05/15/2012 COLONOSCOPY FLEXIBLE PROXIMAL DIAGNOSTIC performed by Robina Lozoya DO at ENDOSCOPY [facility],HYPERPLASTIC POLYPS REPEAT COLONOSCOPY IN 5 YEARS COLONOSCOPY, DIAGNOSTIC (RECTUM) 07/12/2016 tortuous colon, diverticulosis, repeat 5 yrs/[facility] COLONOSCOPY, DIAGNOSTIC (RECTUM) 12/01/2023 sigmoid diverticulosis/COLONOSCOPY FLEXIBLE PROXIMAL DIAGNOSTIC performed by Zenobia Costa MD at ENDOSCOPY [facility] EGD, FLEXIBLE, DIAGNOSTIC 07/12/2016 normal bx/[facility] EGD, FLEXIBLE, DIAGNOSTIC 11/18/2022 biopsies normal/ESOPHAGOGASTRODUODENOSCOPY (EGD), FLEXIBLE, TRANSORAL, DIAGNOSTIC performed by MD Marcial at ENDOSCOPY [facility] EGD, FLEXIBLE, DIAGNOSTIC 12/01/2023 normal/ESOPHAGOGASTRODUODENOSCOPY (EGD), FLEXIBLE, TRANSORAL, DIAGNOSTIC performed by Zenobia Costa MD at ENDOSCOPY [facility] EGD, W/ENDOSCOPIC US 11/29/2012 UPPER GI ENDOSCOPY ENDOSCOPIC ULTRASOUND performed by Chikis Cole DO at [facility]: benign polyp to stomach EGD, W/ENDOSCOPIC US 01/25/2023 mild liver fibrosis, GB sludge / ESOPHAGOGASTRODUODENOSCOPY (EGD), FLEXIBLE, TRANSORAL, ENDOSCOPIC ULTRASOUND performed by Miguel Ruff MD at ENDOSCOPY [facility] INFORMATION Laparoscopy X3 KNEE ARTHROSCOPY, DIAGNOSTIC Right Knee Scope,Diagnostic MISCELLANEOUS ORDER ([facility] ONLY) 05/19/2016 NATAN L5-s1 Dr Leija [facility] OTHER Bilateral 02/09/2021 b/l C5-6 NATAN at [facility] in Counts Include 234 Beds At [facility] REMOVE TONSILS & ADENOIDS, UNDER 12 SMALL BOWEL ENDOSCOPY W/BX 03/2007 TENDON SHEATH INCISION, FINGER Right 11/28/2017 TRIGGER FINGER RELEASE performed by Marcelo Arnold DO at [facility] TENDON SHEATH INCISION, FINGER Left 09/21/2023 LEFT TRIGGER FINGER RELEASE performed by Bill Reilly MD at [facility] TOTAL HYSTERECTOMY VALARIE (Total Abdominal Hysterectomy) Social History Socioeconomic History Marital status: Spouse name: Not on file Number of children: Not on file Years of education: Not on file Highest education level: Not on file Occupational History 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 Apply to affected area 15 g 1 Furosemide 20 MG Oral Tablet (Lasix) Take 1 Tablet by mouth in the morning. 90 Tablet 3 metFORMIN HCl 1000 MG Oral Tablet (Glucophage) TAKE 1 TABLET TWICE A DAY WITH MORNING AND EVENING MEALS 180 Tablet 3 Pen Hooper 32G X 4 MM Use as directed. [...] DAILY WITH DINNER 90 Tablet 1 Tiotropium Obion-Olodaterol 2.5-2.5 MCG/ACT Inhalation Aerosol Solution (Stiolto Respimat) [...] 1 Tablet before bedtime. 90 Tablet 1 No current facility-administered medications for this visit. Physical: BP 134/84 Comment: done w hepatology | Pulse 66 | Temp 36.7 C (98 F) (Tympanic) | Resp 16 | Ht 1.6 m (5' 2.99") | Wt 61.4 kg (135 lb 6.4 oz) | SpO2 98% | BMI 23.99 kg/m | BSA 1.65 m General-No apparent Distress Head, Eyes, Ears, Nose, Throat--Normocephalic, atraumatic Neck-Supple Lymph-no lymphadenopathy Lungs-Clear to Auscultation bilaterally Cardiovascular--Regular rate & Rhythm, +s1, s2, no murmur Abdomen-soft, nontender, nondistended + bowel sounds Extremities--no edema Mskel +hand tendon thickening left palm, tender Skin-hyperpigmented papule smooth border <1cm between breasts Neuro-alert & oriented x3 (K75.4) Autoimmune hepatitis (HCC) (primary encounter diagnosis) Plan: cont mgmt per hepatology (E11.9) Type 2 diabetes mellitus with hemoglobin A1c goal of less than 8.0% (HCC) Plan: ALBUMIN / CREATININE RATIO, URINE, HEMOGLOBIN A1C Labs reviewed/ordered Cont mgmt at goal (F33.2) Major depressive disorder, recurrent severe without psychotic features (HCC) Plan: cont mgmt (L98.9) Skin abnormality Plan: DERMATOLOGY REFERRAL OP Suspect benign but as changes will have eval (R51.9) Daily headache Plan: ADULT NEUROLOGY REFERRAL OP - +Migraine ESTEVES-G43.109-trial [facility] for PRN use Already on 2 preventive meds f/u neuro (D50.9) Iron deficiency anemia, unspecified iron deficiency anemia type Plan: improved Angie 1y -likely not absorbing with her PPI I spent a total of 40-54 minutes (exact time 45 mins) on the date of service in preparation, delivery, and documentation of the care provided to Shelly Macdonald excluding any time spent in the performance of separately billed services or time spent by another provider/QHP. (This note was completed using the dictation program Fluency Direct. As such, there may be misspellings, word substitutions, or other variations that should not change the essence of the clinical content of this encounter note.If there is need for further clarification, please direct questions to the provider listed above.) Brent Smith MD documented in this encounter Nursing Notes * Genny Frey LPN - 05/10/2024 9:20 AM EDT The patient has been properly identified by confirmation of name and date of . Chief Complaint Patient presents with Physical-Exam Yearly physical Discuss left hand problems-see Dr. Reilly Getting daily headaches and back pain. Mole on chest-wants evaluated. documented in this encounter Plan of Treatment Upcoming Encounters Date Type Department Care Team (Late st Contact Info) Description 05/14/2024 11:20 AM EDT Office Visit Neurology [facility] [place] [address] [place] [address] Ivy Broussard PA-C [address] [place] [address] 05/28/2024 10:30 AM EDT Telemedicine Psychiatry, Jas Steele [address] [place] [address] Pedro Luis Casas CRNP [address] [place] [address] 05/29/2024 10:30 AM EDT Office Visit Pharmacy, [facility] [address] [facility] [place] [address] [facility] [address] [place] [address] 06/04/2024 11:00 AM EDT Office Visit Orthopaedics [facility] [address] [facility] [place] [address] Bill Reilly MD [address] [place] [address] 06/28/2024 9:30 AM EST Office Visit Cardiology, [facility] [address] [place] [address] Markell Brooks PAPeña [facility] [place] [address] 08/28/2024 9:00 AM EST Office Visit Rheumatology [address] [place], [place] [address] Matthew Mari MD [address] [place] [address] [place], [place] [address] 09/17/2024 11:30 AM EST Office Visit Hematology/Oncology [facility] [address] [facility] [phone] Angela Renteria CRNP [address] [place] [address] 11/19/2024 9:20 AM EDT Office Visit Hepatology, [facility] [address] [place] [address] Lali Chowdhury DO [address] [place] [address] 05/31/2025 9:20 AM EDT Office Visit Family Practice [facility] [address] [place] [address] Brent Smith MD [address] [place] [address] Scheduled Orders Name Type Priority Associated Diagnoses Orde r Schedule ALBUMIN / CREATININE RATIO, URINE Lab Routine Type 2 diabetes mellitus with hemoglobin A1c goal of less than 8.0% (HCC) Expected: 05/10/2024, Expires: 05/10/2025 HEMOGLOBIN A1C Lab Routine Type 2 diabetes mellitus with hemoglobin A1c goal of less than 8.0% (HCC) Expected: 08/09/2024 (Approximate), Expires: 05/10/2025 Scheduled Referrals Name Type Priority Associated Diagnoses Orde r Schedule DERMATOLOGY REFERRAL OP Referral Within 10 days (routine) Skin abnormality Ordered: 05/10/2024 ADULT NEUROLOGY REFERRAL OP Referral Within 30 days (routine) Daily headache Ordered: 05/10/2024 Health Maintenance Due Date Last Done Comments [...] elsewhere), 06/30/2023, Additional history exists HbA1c 07/28/2024 01/27/2024, 03/0 12/2023, 08/05/2023, Additional history exists Albumin/Creatinine Ratio 08/05/2024 023, 05/06/2023, 07/10/2022, Additional history exists CKD PHOS USE SMARTSET 31700 08/05/202407/22, 08/09/2022, 08/06/2021, Additional history exists Diabetic Foot Exam 08/05/2024 08/05/2023, 1 09/18/2021, 09/04/2021, Additional history exists GFR 11/07/2024 05/10/2024, 02/2024, 10/25/2023, Additional history exists O2 ASSESSMENT COMPLETED IN PAST YEAR FOR COPD 11/30/2024 12/01/2023 B-12 12/14/2024 12/15/2023, 05/22, 11/12/2022, Additional history exists Adult Wellness Visit 03/27/2025 03/27/2024, 10/21/19 22 CKD HGB USE SMARTSET 87312 05/10/202505/10, 05/10/2024, 03/12/2024, Additional history exists Depression [...] as of this encounter Visit Diagnoses Diagnosis Autoimmune hepatitis (HCC)- Primary Autoimmune hepatitis Type 2 diabetes mellitus with hemoglobin A1c goal of less than 8.0% (HCC) Major depressive disorder, recurrent severe without psychotic features (HCC) Major depressive disorder, recurrent episode, severe, without mention of psychotic behavior Skin abnormality Unspecified congenital anomaly of the integument Daily headache Headache Iron deficiency anemia, unspecified iron deficiency anemia type Migraine with aura and without status migrainosus, not intractable Migraine with aura, without mention of intractable migraine without mention of status migrainosus documented in this encounter Advance Directives Documents on File Type Date Recorded 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 Care Teams Coverstitch Binder Relationship Specialty Start Date End Date Brent Smith MD [address] [place] [address] PCP - General Family Medicine 04/20/23 documented as of this encounter
--- OUTSIDE RECORDS SUMMARY | 2024-08-09 14:43 | External Medical Summary ---
Author Name Unknown Address Unknown Organization K0G:[facility] [address] [place] [address] Laboratory Report Ordering Provider Test Date Status MONICOSTEPHY CASTAÑEDAEFRAÍN 05/10/2024 07:42:53 Final Observation Date Value Abnormality Reference (Units ) Status WBC, Total 05/10/2024 07:42:53 5.45 4.00-10.8 0 (K/uL) Final RBC 05/10/2024 07:42:53 4.01 3.85-5.15 (M/uL) Final Hemoglobin 05/10/2024 07:42:53 12.8 12.0-15.3 (g/dL) Final HCT 05/10/2024 07:42:53 38.3 36.0-45.2 (%) Final MCV 05/10/2024 07:42:53 95.5 81.5-97.5 (fL) Final MCH 05/10/2024 07:42:53 31.9 27.0-34.0 (pg) Final MCHC 05/10/2024 07:42:53 33.4 32.0-36.0 (g/dL) Final RDW 05/10/2024 07:42:53 14.8 11.5-15.5 (%) Final Platelets 05/10/2024 07:42:53 167 140-400 (K /uL) Final MPV 05/10/2024 07:42:53 10.6 6.6-11.1 ( fL) Final Performing Location [facility] [address] [place] [address]
--- OUTSIDE RECORDS SUMMARY | 2024-08-09 14:43 | External Medical Summary | Summary of Care ---
Author Name Unknown Organization [facility] Address [address] [facility] [place] [address] Phone [phone] Care Team Providers Care Investment Counselor Name Role Phone Brent Trinh MD Primary Care Provider + Reason for Visit * Reason Onset Date Comments Medication Question 03/27/2024 Encounter Details Date Type Department Care Team (Late st Contact Info) Description 03/27/2024 Telephone Pharmacy, [facility] [address] [facility] [place] [address] Liana Breaux, [facility] [address] [facility] [place] [address] Medication Question Allergies Active Allergy Reactions Criticality Noted Date [...] as of this encounter (statuses as of 04/13/2024) Medications Medication Sig Dispensed Refills Start Date [...] BEFORE BEDTIME 90 Tablet 3 04/01/2023 Active Nystatin-Triamcino lone 059530-2.1 UNIT/GM-% External Ointment (Mycolog)Indicatio ns:Dermatitis Apply topically to affected area 3 times a day. Apply to affected area 15 g 1 04/18/2023 Active Furosemide 20 MG Oral Tablet (Lasix)Indications :HTN, goal below 140/90,Coronary artery disease involving [place] heart without angina pectoris, unspecified vessel or lesion type,Encounter for monitoring diuretic therapy,Old myocardial infarct Take 1 Tablet by mouth in the morning. 90 Tablet 3 05/13/2023 Active metFORMIN HCl 1000 MG Oral Tablet (Glucophage)Indica tions:Type 2 diabetes mellitus with hemoglobin A1c goal of less than 8.0% (HCC) TAKE 1 TABLET TWICE A DAY WITH MORNING AND EVENING MEALS 180 Tablet 3 08/29/2023 Active Pen [place] 32G X 4 MMIndications:Type 2 diabetes mellitus with hemoglobin A1c goal of less than 8.0% (HCC) Use as directed. To administer insulin. 100 Each 3 08/29/2023 Active Pioglitazone HCl 30 MG Oral Tablet (Actos) Take 1 Tablet by mouth in the morning. 90 Tablet 3 08/29/2023 Active FreeStyle LancetsIndications :Type 2 diabetes mellitus with hemoglobin A1c goal of less than 8.0% (HCC) Use to test blood sugar twice daily or as directed E11.9 180 Each 3 09/08/2023 Active FreeStyle Lite Test In Vitro Strip (Glucose Blood)Indications: Type 2 diabetes mellitus with hemoglobin A1c [...] 12/07/2023 Active clonazePAM 1 MG Oral Tablet (KlonoPIN)Indicati ons:HILLARY (generalized anxiety disorder) 1/2 tab in evening by mouth. You may take an extra 1/2 tab daily as needed for anxiety. 135 Tablet 1 12/29/2023 Active Chlorzoxazone 500 MG Oral TabletIndications: Lumbar radiculopathy TAKE 1 TABLET AT BEDTIME AND UP TO 3 ADDITIONAL TABLETS DURING THE DAY NEEDED FOR NECK AND HEAD PAIN 270 Tablet 3 12/29/2023 Active Ondansetron HCl 4 MG Oral TabletIndications: Nausea Take 1 Tablet by mouth every 8 hours as needed for Nausea. 30 Tablet 1 01/03/2024 Active Ajovy 225 MG/1.5ML Subcutaneous Solution Auto-injectorIndic ations:Migraine with aura and without status migrainosus, not intractable Inject 225 mg under the skin Every Month. 4.5 mL 3 01/05/2024 Active Ezetimibe 10 MG Oral Tablet (Zetia) TAKE 1 TABLET EVERY EVENING 90 Tablet 1 02/01/2024 Active Rosuvastatin Calcium 40 MG Oral Tablet (Crestor)Indicatio ns:Dyslipidemia, goal LDL below 70 TAKE 1 TABLET DAILY WITH DINNER 90 Tablet 1 02/01/2024 Active Tiotropium [place]-Olodaterol 2.5-2.5 MCG/ACT Inhalation Aerosol Solution (Stiolto Respimat)Indicatio ns:Centrilobular emphysema (HCC) Inhale 2 Puffs by mouth in the morning. 12 g 3 01/31/2024 Active FLUoxetine HCl 40 MG Oral Capsule (PROzac) Take 1 Capsule by mouth in the morning. 90 Capsule 1 03/07/2024 Active Pantoprazole Sodium 40 MG Oral Tablet Delayed Release (Protonix)Indicati ons:Gastroesophage al reflux disease with esophagitis, unspecified whether hemorrhage Take 1 Tablet by mouth in the morning. 90 Tablet 3 04/10/2024 Active Pantoprazole Sodium 40 MG Oral Tablet Delayed Release (Protonix)Indicati ons:Gastroesophage al reflux disease with esophagitis, unspecified whether hemorrhage TAKE 1 TABLET IN THE MORNING AND 1 TABLET BEFORE BEDTIME 180 Tablet 3 07/31/2023 04/10/20 24 Discontinued documented as of this encounter (statuses as of 04/13/2024) Active Problems Problem Noted Date Diagnosed Date [...] stenosis. Had C5-6 b/l NATAN 03/10 colon [facility]--WNL angie 10y 03/07 MRI lumbar [...] (coronary artery disease) 07/07/2012 Overview: STENT 2008 [facility] [place], [place] 2004 HTN, goal below 140/90 04/10/2012 Overview: Per HTN Protocol #27. ADVANCE DIRECTIVE INFORMATION 03/19/2010 Overview: Information offered-patient declined. Type 2 diabetes mellitus wit h hemoglobin A1c goal of less than 8.0% 08/06/2009 Overview: Per Lipid Taxonomy. 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 Saw pulm. FAMILY HX-GI MALIGNANCY 02/09/2005 documented as of this encounter (statuses as of 04/13/2024) Resolved Problems Problem Noted Date Diagnosed Date Resolved Date Coronary artery disease invo lving nuiqs[place] coronary artery of [place]qs[place] heart with unstable angina pectoris 09/05/2019 08/06/2021 [...] myocardial infarction 03/13/2009 Overview: Modified by Acute [place] Protocol #5. Major depressive disorder, r ecurrent episode, moderate 06/13/2013 documented as of this encounter (statuses as of 04/13/2024) Immunizations Name Administration Dates Next Due COVID-19 mRNA, LNP-s, No Pre serve, 2-Dose Series (Moderna) 10/27/2020,09/29/2020 COVID-19, LNP-s, No Preserve , Klaus-sucrose, Ages 12+ (Pfizer) 03/17/2022 COVID-19, MRNA-LNP, 23-24, P F, 30 MCG/0.3 mL, 12 YRS AND ABOVE, IM (PFIZER-Comirnat) 06/07/2023 COVID-19, mRNA, LNP-s, PF, B ooster, [...] No Preserve, IM 05/10/2017,06/24/2016,05/27/2015 06/24/2017 Seasonal Influenza, Split, I IV3, With Preserve, Inj 06/03/2014,06/07/2013,04/27/2012,05/23,05/07/2010,09/05/2009,06/07/20 08,06/02/2007,06/09/2005,06/12/2003,1 ,07/31/2001 Seasonal Influenza, Trivalen t, Adjuvanted, 65+ yrs 05/10/2019 TD - Tetanus/Diptheria (ADULT) 03/01/2006 TDAP (age 10 and older)(Boostrix) 05/31/2023, Tetanus Toxid Adsorbed 11/18/2008 Varicella Zoster Vaccine (Adult) 09/27/2012 Zoster Vaccine Recombinant (Shingrix) 04/13/2021 ,02/10/2021 documented as of this encounter Social History Tobacco Use Types Packs/Day Years Used Date Smoking Tobacco: Every Day Cigarettes 0.5 59.6 Started: 1964 Passive Smoke Exposure: Past Smokeless [...] as of this encounter Miscellaneous Notes * Addendum Note - Brent Trinh MD - 04/10/2024 7:34 PM EDTAddended by: BRENT TRINH on: 04/10/2024 07:34 PM Modules accepted: Orders * Telephone Encounter - Brent Trinh MD - 04/10/2024 7:34 PM EDT Call pt Discussed med questions with [facility] pharmacist. Can cut back her pantoprazole to 40mg daily, instead of BID. If symptoms get a lot worse , we can go back up to BID If remains good after a month, we can cut back further * Telephone Encounter - Liana Breaux [facility] - 03/27/2024 12:23 PM EDT Beto, Patient seen in [facility] today was several concerns: She is concerned about continuing pantoprazole as she has been on it a long time and GI told her that could be causing the low iron levels and changing absorption on things. She is agreeable to wean/reducing this, based on your opinion of what needs to happen, passing the message along from her She also states she continues to feel unwell and fatigued despite iron deficency anemia correction.Notes she continues with the low back pain and daily headaches which are not relieved with ajovy but notes different than her previous migraine symptoms. She is questioning what to do about that. I thought maybe a trial of trileptal given the amt of current serotonin on board and also the other things she has tried and failed? Just a thought. Happy to discuss her when you are back, I know this is a lot! Thank you! Liana Breaux, Pharm D, [facility] Clinical Pharmacist 03/27/2024, 12:26 PM documented in this encounter Plan of Treatment Upcoming Encounters Date Type Department Care Team (Late st Contact Info) Description 05/10/2024 7:40 AM EDT [facility] [address] [place] [phone] Rik Steele [address] [place] [address] 05/10/2024 8:20 AM EDT Office Visit Hepatology, [facility] [place] [address] [place] [address] Lali Chowdhury DO [address] [place] [address] 05/10/2024 9:20 AM EDT Office Visit Family Practice [facility] [address] [place] [address] Brent Trinh MD [address] [place] [address] 05/28/2024 10:30 AM EDT Telemedicine Psychiatry, [facility] [address] [place] [address] Pedro Luis Casas CRNP [address] [place] [address] 05/29/2024 10:30 AM EDT Office Visit Pharmacy, [facility] [address] [place] [address] [facility] [address] [place], [place] [address] 06/28/2024 9:30 AM EST Office Visit Cardiology, [facility] [address] [place] [address] Markell Brooks, PA-C [address] [place], [place] [address] 08/28/2024 9:00 AM EST Office Visit Rheumatology [place] [phone] [facility] [place] [address] Matthew Mari MD [facility] [place] [facility] [place] [address] 09/17/2024 11:30 AM EST Office Visit Hematology/Oncology [facility] [place] [address] [place] [phone] Angela Renteria CRNP [address] [place] [address] Health Maintenance Due Date Last Done Comments Cologuard 1995 Sigmoidoscopy 1995 Fecal Occult Blood Test 01/20/2013 01/21/20 12, 10/07/2000, 10/05/1996 DISCUSS TOBACCO CESSATION (REFER TO SMARTSET #3291) 05/10/2018 05/10/2017 (Discussed) Depression Monitoring 09/04/2022 09/04/2021 COVID-19 Vaccine ( season) 2023 06/07/2023, 08/18/2022, 03/17/2022, Additional history exists Mammogram 12/10/2023 12/09/2022, 11/21, 08/20/2021, Additional history exists Influenza Vaccine (FLU shot) (#1) 2024 05/06/2023, 05/13/2022, 06/16/2021, Additional history exists Diabetic Eye Exam 06/30/2024 06/30/2023, (Done elsewhere), 06/30/2023, Additional history exists GFR 07/28/2024 01/27/2024, 03/0 12/2023, 08/05/2023, Additional history exists HbA1c 07/28/2024 01/27/2024, 03/0 12/2023, 08/05/2023, Additional history exists Albumin/Creatinine Ratio 08/05/2024 023, 05/06/2023, 07/10/2022, Additional history exists CKD PHOS USE SMARTSET 74434 08/05/202407/22, 08/09/2022, 08/06/2021, Additional history exists Diabetic Foot Exam 08/05/2024 08/05/2023, 1 09/18/2021, 09/04/2021, Additional history exists O2 ASSESSMENT COMPLETED IN PAST YEAR FOR COPD 11/30/2024 12/01/2023 B-12 12/14/2024 12/15/2023, 05/22, 11/12/2022, Additional history exists CKD HGB USE SMARTSET 58028 03/12/202503/12, 03/12/2024, 02/14/2024, Additional history exists Adult Wellness Visit 03/27/2025 03/27/2024, 10/21/19 22 Colonoscopy 11/30/2028 12/01/2023, 11/20, 12/16/2020, Additional history exists Colorectal Cancer Screening 11/30/2028 DXA Scan 06/22/2029 06/22/2022, 08/2021, 10/22/2020, Additional history exists DTaP,Tdap,and Td Vaccines (3 - Td or Tdap) 05/31/2033 [...] as of this encounter Visit Diagnoses Diagnosis Gastroesophageal reflux disease with esophagitis, unspecified whether hemorrhage documented in this encounter Advance Directives Documents on File Type Date Recorded Patient Project Safety Manager 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 Care Teams Investment Counselor Relationship Specialty Start Date End Date Brent Trinh MD [address] [place] [address] PCP - General Family Medicine 04/20/23 documented as of this encounter
--- OUTSIDE RECORDS SUMMARY | 2024-08-09 14:43 | External Medical Summary | Summary of Care ---
Author Name Unknown Organization [facility] Address [address] [facility] [place] [address] Phone [phone] Care Team Providers Care Wastewater Technician Name Role Phone Brent Smith MD Primary Care Provider + Reason for Visit * Reason Onset Date Comments Test Results Lab 05/10/2024 Encounter Details Date Type Department Care Team (Late st Contact Info) Description 05/10/2024 Telephone Hepatology, [facility] [address] [place] [address] Lali Chowdhury DO [address] [place] [address] Test Results Lab Allergies Active Allergy Reactions [...] 90 Tablet 3 04/01/2023 Active Nystatin-Triamcinolon e 715733-8.1 UNIT/GM-% External Ointment (Mycolog)Indications: Dermatitis Apply topically to affected area 3 times a day. Apply to affected area 15 g 1 04/18/2023 Active Furosemide 20 MG Oral Tablet (Lasix)Indications:HT N, goal below 140/90,Coronary artery disease involving [place] heart without angina pectoris, unspecified vessel or [...] MEALS 180 Tablet 3 08/29/2023 Active Pen [place] 32G X 4 MMIndications:Type 2 diabetes mellitus [...] A1c goal of less than 8.0% ([facility]) Use to test blood sugar twice [...] DINNER 90 Tablet 1 02/01/2024 Active Tiotropium [place]-Olodaterol 2.5-2.5 MCG/ACT Inhalation Aerosol Solution (Stiolto Respimat)Indications: [...] Dr Kaushal Giang. 11/19/20 MRI C-Spine in [place]. DDD most C5-6. Mod central canal and mod left foraminal stenosis. Had C5-6 b/l NATAN 03/10 colon @[facility]--WNL angie 10y 03/07 MRI lumbar some [...] (coronary artery disease) 07/07/2012 Overview: STENT 2008 [facility] [place] 2004 HTN, goal below 140/90 04/10/2012 [...] Resolved Date Coronary artery disease invo lving [place]cock coronary artery of [place] heart with unstable angina pectoris 09/05/2019 08/06/2021 [...] 05/14/2024 11:20 AM EDT Office Visit [facility] [address] [place] [address] Ivy Broussard PA-C [address] [facility] [place] [address] 05/28/2024 10:30 AM EDT Telemedicine Psychiatry, [facility] [address] [place] [address] Pedro Luis Casas CRNP [address] [place] [address] 05/29/2024 10:30 AM EDT Office Visit Pharmacy, [facility] [address] [place] [address] [facility] [address] [place] [address] 06/04/2024 11:00 AM EDT Office Visit Orthopaedics [facility] [address] [place] [address] Bill Reilly MD [address] [place] [address] 06/28/2024 9:30 AM EST Office Visit Cardiology, [facility] [address] [place] [address] Markell Brooks PA-C [address] [place] [address] 08/28/2024 9:00 AM EST Office Visit Rheumatology [facility] [address] [facility] [place], [place] [address] Matthew Mari MD [address] [facility] [place], [place] [address] 09/17/2024 11:30 AM EST Office Visit Hematology/Oncology [facility] [address] [facility] [place] [phone] Angela Renteria CRNP [address] [facility] [place] [address] 11/19/2024 9:20 AM EDT Office Visit Hepatology, [facility] [address] [place] [address] Lali Chowdhury DO [address] [place] [address] 05/31/2025 9:20 AM EDT Office Visit Family Practice [facility] [address] [place] [address] Brent Smith MD [address] [place] [address] Health Maintenance Due Date Last Done Comments [...] Additional history exists CKD PHOS USE SMARTSET 72894 08/05/202407/22, 08/09/2022, 08/06/2021, Additional history exists Diabetic Foot Exam 08/05/2024 08/05/2023, 1 09/18/2021, 09/04/2021, Additional history exists GFR 11/07/2024 05/10/2024, 06/0 02/2024, 10/25/2023, Additional history exists O2 ASSESSMENT COMPLETED IN PAST YEAR FOR COPD 11/30/2024 12/01/2023 B-12 12/14/2024 12/15/2023, 05/22, 11/12/2022, Additional history exists Adult Wellness Visit 03/27/2025 03/27/2024, 10/21/19 22 CKD HGB USE SMARTSET 54324 05/10/202505/10, 05/10/2024, 03/12/2024, Additional history exists Depression [...] Documents on File Type Date Recorded Patient Director Of Operations Support 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 Care Teams Wastewater Technician Relationship Specialty Start Date End Date Brent Smith MD [address] [place] [address] PCP - General Family Medicine 04/20/23 documented as of this encounter
--- OUTSIDE RECORDS SUMMARY | 2024-08-09 14:43 | External Medical Summary | Summary of Care ---
Author Name Unknown Organization [facility] Address [address] [facility] [place] [address] Phone [phone] Care Team Providers Care Leather Sprayer Name Role Phone Brent Smith MD Primary Care Provider + Reason for Visit * Reason Comments Follow Up Per pt f/u for LFT's . Pt states back in December she had 4 iron infusions for her anemia and her fatigue was better. Recently started methotrexate. Now c/o increased fatigue. Had labs drawn this morning. Encounter Details Date Type Department Care Team (Latest Contact Info) Description 05/10/2024 8:20 AM EDT Office Visit Hepatology, [facility] [address] [place] [address] Lali Chowdhury DO [address] [place] [address] Gastroesophageal reflux disease without esophagitis* Allergies Active Allergy Reactions Criticality Noted Date [...] 90 Tablet 3 04/01/2023 Active Nystatin-Triamcinolo ne 604638-6.1 UNIT/GM-% External Ointment (Mycolog)Indications :Dermatitis Apply topically to affected area 3 times a day. Apply to affected area 15 g 1 04/18/2023 Active Furosemide 20 MG Oral Tablet (Lasix)Indications:H TN, goal below 140/90,Coronary artery disease involving [place] heart without angina pectoris, unspecified vessel or [...] MEALS 180 Tablet 3 08/29/2023 Active Pen [place] 32G X 4 MMIndications:Type 2 diabetes mellitus with hemoglobin A1c goal of less than 8.0% (HCC) Use as directed. To administer insulin. 100 Each 3 08/29/2023 Active Pioglitazone HCl 30 MG Oral Tablet (Actos) Take 1 Tablet by mouth in the morning. 90 Tablet 3 08/29/2023 Active FreeStyle LancetsIndications:T ype 2 diabetes mellitus with hemoglobin A1c goal of less than 8.0% ([facility]) Use to test blood sugar twice daily or as directed E11.9 180 Each 09/08/2023 Active FreeStyle Lite Test In Vitro Strip (Glucose Blood)Indications:Ty pe 2 diabetes mellitus with hemoglobin A1c goal of less than 8.0% ([facility]) Use to test blood sugar twice daily [...] daily as needed for anxiety. 135 Tablet 12/29/2023 Active Chlorzoxazone 500 MG Oral TabletIndications:Helen [...] under the skin Every Month. 4.5 mL 01/05/2024 Active Ezetimibe 10 MG Oral Tablet (Zetia) TAKE 1 TABLET EVERY EVENING 90 Tablet 1 02/01/2024 Active Rosuvastatin Calcium 40 MG Oral Tablet (Crestor)Indications :Dyslipidemia, goal LDL below 70 TAKE 1 TABLET DAILY WITH DINNER 90 Tablet 02/01/2024 Active Tiotropium [place]-Olodaterol 2.5-2.5 MCG/ACT Inhalation Aerosol Solution (Stiolto Respimat)Indications [...] 04/10/2024 Active Famotidine 20 MG Oral Tablet (Pepcid)Indications: Gastroesophageal reflux disease without esophagitis Take 1 Tablet by mouth in the morning and 1 Tablet before bedtime. 90 Tablet 1 05/10/2024 Active documented as of this encounter [...] Dr Kaushal Giang. 11/19/20 MRI C-Spine in [place]. DDD most C5-6. Mod central canal and mod left foraminal stenosis. Had C5-6 b/l NATAN 03/10 [facility]--W[facility] angie 10y 03/07 MRI lumbar some [...] (coronary artery disease) 07/07/2012 Overview: STENT 2007 [facility], [place] 2004 HTN, goal below 140/90 04/10/2012 Overview: Per HTN Protocol #27. ADVANCE DIRECTIVE INFORMATION 03/19/2010 Overview: Information offered-patient declined. Type 2 diabetes mellitus wit h hemoglobin A1c goal of less than 8.0% 08/06/2009 Overview: Per Lipid Taxonomy. ICD-10 update of inactive term Old myocardial infarct 03/13/2009 Overview: [place]FEROLATERAL [place] 2004 Chronic rhinitis 10/07/2008 Gastroparesis 04/27/2007 Sarcoidosis 05/12/2005 Overview: DX 2004 EGD showing nonnecrotizing granuloma stomach + wt loss. Saw pulm. FAMILY HX-GI MALIGNANCY 02/09/2005 documented as of this encounter (statuses as of 05/10/2024) Resolved Problems Problem Noted Date Diagnosed Date Resolved Date Coronary artery disease invo lving [place] coronary artery of [place] heart with unstable angina pectoris 09/05/2019 08/06/2021 [...] myocardial infarction 03/13/2009 Overview: Modified by Acute [place] Protocol #5. Major depressive disorder, r ecurrent episode, moderate 06/13/2013 documented as of this encounter (statuses as of 05/10/2024) Immunizations Name Administration Dates Next Due COVID-19 mRNA, LNP-s, No Pre serve, 2-Dose Series (Moderna) 10/27/2020,09/29/2020 COVID-19, LNP-s, No Preserve , Klaus-sucrose, Ages 12+ (Pfizer) 03/17/2022 COVID-19, MRNA-LNP, 23-24, P F, 30 MCG/0.3 mL, 12 YRS AND ABOVE, IM (Abigail Stewart-Comirnaty) 06/07/2023 COVID-19, mRNA, LNP-s, PF, B ooster, [...] Time Taken Comments Blood Pressure 134/84 05/10/2024 8:07 AM EDT Pulse 67 05/10/2024 8:07 AM EDT Temperature 36.7 C (98 F) 05/10/2024 8:07 AM EDT Respiratory Rate - - Oxygen Saturation - - Inhaled Oxygen Concentration - - Weight 61.6 kg (135 lb 14.4 oz) 05/10/2024 8:07 AM EDT Height - - Body Mass Index 24.08 03/27/2024 11:21 AM EDT documented in this encounter Functional [...] as of this encounter Progress Notes * Lali Chowdhury, - 05/10/2024 8:26 AM EDT Images from the original note were not included. CC: follow up HPI: Shelly Macdonald is a 73 year old female presenting for follow up of abnormal LFTs. She has PMH notable for CAD s/p PCI, HLD, gastroparesis, CPPD, LUISA, sarcoidosis, DM2, GERD, and RA. She had beenfollowed by Janessa Renteria and in November she had a serological work up completed for abnormal LFTs. This serological work up was notable only for a very mildly elevated smooth muscle antibody to 29. She then underwent a liver biopsy on 01/25/23 which showed mild nonspecific portal inflammation. Frequent glycogenated nuclei present, suggesting underlying metabolic syndrome/diabetes mellitus. DD includes infection, DILI, and systemic conditions such as autoimmune disease and diabetes. Features of metabolic syndrome seen. She drinks very minimal alcohol. Denies drug use. She currently smokes and smokes less than 1/5 PPDdaily. No new medications or herbal supplements. Entire maternal side of her family she states werealcoholics so they probably had some liver disease she believes. Mother had colon cancer diagnosed in her early 60s. Was on Ozempic - started in June, had significant side effects of nausea and weight loss which worsened w increasing the dose. Though significantly improved her diabetes labs, she stopped the Ozempic due to severe side effects. LFTs were 1st noticed to be elevated after an increase in the Effexor dosing and when she was taken off Ozempic. She has been on her statin medicationfor 10-15 years. She is following with rheumatology. Being worked up for inflammatory polyarthritis/RA. She was on prednisone 10 and 5 mg daily but states she could not tolerate these. States she developed a vaginal yeast infection and sugars were not well controlled. Also developed side effects from plaquenil that rheumatology had put her on so she stopped this too. She was now recently started on Methotrexate in the past month. She states the MTX is causing her abdominal pain and she is trying to split the dose during the day to see if this helps. Following with hematology for SDI getting IV iron infusions. Had an EGD, colonoscopy, and VCE in November which were all negative. Hemoglobin is now 12.8. she states she is concerned that no one is telling her why her hgb has actually been low and what the actual cause is. She states hematology told her the protonix may have been causing her anemia but she wants to get this investigated further. Shestates since cutting her PPI back to once daily her reflux is much worse. We discussed I would add Pepcid before bedtime so dmitriy can take her protonix in the AM. Past Medical History: Diagnosis Date ASCVD (arteriosclerotic cardiovascular disease) 07/07/2012 STENT 2007 [place], [place] 2003 Autoimmune hepatitis (HCC) 05/06/2023 CAD (coronary artery disease) 07/07/2012 STENT 2007 [place], [place] 2003 Cervical disc disorder 04/23/2014 Chronic [...] intractable 09/23/2015 Old myocardial infarct 03/13/2009 INFEROLATERAL [place] 2004 LUISA (obstructive sleep apnea) 10/13/2017 S/P cardiac cath 10/17/2018 Sarcoidosis 05/12/2005 DX 2004 EGD showing nonnecrotizing granuloma stomach + wt loss. Saw pulm. Current Outpatient Medications Medication Sig Dispense Refill ASPIRIN 81 MG PO TABS Take by mouth every evening. Docusate Sodium 100 MG Oral Capsule Take [...] 1 TABLET BEFORE BEDTIME 90 Tablet 3 Furosemide 20 MG Oral Tablet (Lasix) Take 1 Tablet by mouth in the morning. 90 Tablet 3 metFORMIN HCl 1000 MG Oral Tablet (Glucophage) TAKE 1 TABLET TWICE A DAY WITH MORNING AND EVENING MEALS 180 Tablet 3 Pioglitazone HCl 30 MG Oral Tablet (Actos) Take 1 Tablet by mouth in the morning. 90 Tablet 3 Metoprolol Succinate ER 100 MG [...] NECK AND HEAD PAIN 270 Tablet 3 Ajovy 225 MG/1.5ML Subcutaneous Solution Auto-injector Inject 225 mg under the skin Every Month. 4.5 mL 3 Ezetimibe 10 MG Oral Tablet (Zetia) TAKE 1 TABLET EVERY EVENING 90 Tablet 1 Rosuvastatin Calcium 40 MG Oral Tablet (Crestor) TAKE 1 TABLET DAILY WITH DINNER 90 Tablet 1 FLUoxetine HCl 40 MG Oral Capsule (PROzac) [...] 1 Tablet before bedtime. 90 Tablet 1 Blood Glucose Monitoring Suppl (FREESTYLE LITE) DEN Use to test blood sugar twice daily or as directed DX 250.00 1 Device 0 polyethylene glycol 3350 (MIRALAX) packet Take 1 Packet by mouth as needed. Nystatin-Triamcinolone 551675-0.1 UNIT/GM-% External Ointment (Mycolog) Apply topically to affectedarea 3 times a day. Apply to affected area 15 g 1 Pen [place] 32G X 4 MM Use as directed. To administer insulin. 100 Each 3 FreeStyle Lancets Use to test blood [...] of Breath or Wheezing. 18 g 3 Ondansetron HCl 4 MG Oral Tablet Take 1 Tablet by mouth every 8 hours as needed for Nausea. 30 Tablet 1 Tiotropium [place]-Olodaterol 2.5-2.5 MCG/ACT Inhalation Aerosol Solution (Stiolto Respimat) Inhale2 Puffs by mouth in the morning. 12 g 3 No current facility-administered medications for this visit. Review of patient's allergies indicates: Allergen Reactions Angiotensin Receptor Blockers Other (Please comment) Hyperkalemia x's 2. 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 There have been no non-intentional weightchanges. Eyes: No recent changes in visual acuity or blurring of vision. ENT: No change in auditory acuity, sense of smell or taste. CV: No chest pain, palpitations, dyspnea on exertion. Respiratory: No wheezing, cough, sputum production. : No dysuria, polyuria, change in urinary frequency. GI: Per HPI, otherwise negative. Psychiatric: No chronic changes in mood, affect or sensorium. Musculoskeletal: No myalgias, arthralgias, or joint pains. Neurological: No change in gait, change in maintenance of balance, neurologic injuries. Physical Exam Constitutional: BP 134/84 | Pulse 67 | Temp 36.7 C (98 F) | Wt 61.6 kg (135 lb 14.4 oz) | BMI 24.08 kg/m | BSA 1.65 m Well developed, well nourished female in no apparent distress. Eyes: Conjunctivae and sclerae are clear and non-icteric. CV: Heart is regular without murmur, rub or mac. Pulm: Clear to percussion and auscultation. GI: Abdomen is soft, non-tender, with normo-active bowel sounds in all four quadrants. No hepatosplenoegaly is appreciated. No masses are palpated. No guarding or rebound is noted. Psychiatric: The patient is alert and oriented in all four spheres. Mood is euthymic. Affect is appropriate for the situation. Skin: No rashes were noted. Musculoskeletal: Gait is normal. Patient is able to transfer from sitting position to exam table without assistance. Labs: Reviewed Component Latest Ref Rng 07/08/2023 08/05/2023 10/25/2023 01/27/2024 BUN 6 - 20 mg/dL 20 27 (H) 15 22 (H) CREATININE 0.5 - 1.0 mg/dL 1.2 (H) 1.2 (H) 1.2 (H) 1.2 (H) EGFR >=60 mL/min 46 (L) 47 (L) 50 (L) 47 (L) SODIUM 135 - 146 mmol/L 134 (L) 139 136 136 POTASSIUM 3.5 - 5.1 mmol/L 4.5 4.5 4.4 4.8 CHLORIDE 98 - 107 mmol/L 100 102 101 99 CO2 22 - 32 mmol/L 24 24 24 22 ANION GAP 7 - 15 mmol/L 10 13 11 15 GLUCOSE 70 - 120 mg/dL 264 (H) 111 156 (H) 102 Albumin 3.8 - 5.0 g/dL 4.2 4.4 4.0 4.1 AST 10 - 35 U/L 40 (H) 41 (H) 38 (H) 62 (H) Alkaline Phosphatase 35 - 130 U/L 46 55 56 60 Bilirubin, Total <=1.2 mg/dL 0.2 0.2 0.2 0.2 CALCIUM 8.4 - 10.2 mg/dL 9.7 9.9 9.3 9.4 Protein 6.0 - 8.3 g/dL 6.8 7.2 6.6 6.6 ALT 10 - 35 U/L 18 17 18 30 WBC 4.00 - 10.80 K/uL 5.45 RBC 3.85 - 5.15 M/uL 4.01 HGB 12.0 - 15.3 g/dL 12.8 HCT 36.0 - 45.2 % 38.3 MCV 81.5 - 97.5 fL 95.5 MCH 27.0 - 34.0 pg 31.9 MCHC 32.0 - 36.0 g/dL 33.4 RDW 11.5 - 15.5 % 14.8 PLT 140 - 400 K/uL 167 MPV 6.6 - 11.1 fL 10.6 Component Ref Range & Units 3 mo ago Hemoglobin A1C 4.0 - 5.6 % 6.9 High Component Ref Range & Units 1 yr ago Actin Antibody (IGG) <20 U 29 High Path: Reviewed Liver biopsy 01/25/2023: nal Diagnosis A. Liver, needle biopsy: - Liver parenchyma with patchy chronic portal inflammation and perisinusoidal fibrosis (see comment). at 0845 Final Diagnosis Comment Mild lymphocytic infiltrates seen in a portion of portal tracts. Periportal and lobular activity isminimal. Cholestasis and bile duct injury not identified. Steatosis and steatohepatitis not observed. Frequent glycogenated nuclei present, suggesting underlying metabolic syndrome/diabetes mellitus.No acidophil bodies and viral inclusions identified. Trichrome stain shows mild perisinusoidal fibrosis. Iron stain does not show increased iron deposition. Reticulin stain demonstrates single-cell layer of hepatocellular plates. No alpha1-antitrypsin globules identified on PAS-D stain. The mild portal inflammation is nonspecific histologic finding. Differential diagnosis includes infection, drug-induced liver injury and systemic conditions (such as autoimmune diseases, diabetes mellitus). Clinical correlation is recommended. Procedures: Reviewed Colonoscopy 12/01/2023: Impression: - The examined colon appeared normal. - Sigmoid diverticulosis. - The examination was otherwise normal on direct and retroflexion views. EGD 12/01/2023: Impression: - Normal esophagus. Dilated. - Z-line regular. - Normal stomach. - Normal duodenal bulb and second portion of the duodenum. ASSESSMENT: Shelly Macdonald is a 73 year old female presenting today for follow up of abnormal LFTs. She has PMHnotable for CAD s/p PCI, HLD, gastroparesis, CPPD, LUISA, sarcoidosis, DM2, GERD, and RA. Plan: 1. Elevated liver enzymes. Complete serological work up completed notable for a mildly elevated smooth muscle antibody. Her liver biopsy was completed in October 2022 and personally reviewed by myself.There was some mild chronic portal inflammation, lobular activity, and grade 1 fibrosis. She likelyhas a mild form of autoimmune hepatitis as well as NAFLD. She was on prednisone 10 mg daily then 5 mg daily for rheumatological issues (inflammatory arthritis) but stopped this in May as she states that she got a yeast infection and her sugars were running high. At this time given her LFTs are only mildly elevated and only mild activity on biopsy I do not think she needs any immunosuppressants such as azathioprine or cellcept. LFTs from this morning are still in process. Will plan to monitor LFTs every 3 months. Will need DEXA every 2-3 years. She states last one was 1 year ago and was normal. TSH already checked this year and normal. Discussed management of NAFLD includes good management of underlying diabetes, daily exercise, diet high in protein low in carbs. Weight is already at goal with BMI of 24. Her A1c is much improved from 12 down to 6.9 most recently. Given that she was recently started on Methotrexate recommend a yearly fibroscan to assess for fibrosis and close monitoring of LFTs. If LFTs were to increase would discuss with Dr. Mari about using Imuran to treat suspect AIH along with her inflammatory RA in place of MTX. WE discussed today that MTX can cause elevated LFTs, hepatic fibrosis, etc. 2. Colorectal cancer screening. Family history of colon cancer in her mother in her 60s. Recommend colonoscopy every 5 years given family history. Last colonoscopy 11/2023 without any polyps. Repeat again in 5 years. 3. Worsening GERD. On PPI 40 mg daily. Will add Pepcid 20 mg before bedtime. 4. Follow up in 6 months Lali Chowdhury DO Gastroenterology and Hepatology I spent a total of 35 minutes on the date of service in review of patient's record, and previously obtained information in person and appropriate medical visit, discussion and education of plan, withpatient and/or caregiver, placing orders for tests/referral/procedures as medically necessary and documentation of pertinent clinical information in patient's medical records for their visit today. documented in this encounter Nursing Notes * Mamta Segura CMA - 05/10/2024 8:07 AM EDT Chief Complaint Patient presents with Follow Up Per pt f/u for LFT's. Pt states back in December she had 4 iron infusions for her anemia and her fatiguewas better. Recently started methotrexate. Now c/o increased fatigue. Had labs drawn this morning. documented in this encounter Plan of Treatment Upcoming Encounters Date Type Department Care Team (Late st Contact Info) Description 05/10/2024 9:20 AM EDT Office Visit Family Practice [facility] [address] [place] [address] Brent Smith MD [address] [place] [address] Arrived 05/28/2024 10:30 AM EDT Telemedicine Psychiatry, [facility] [address] [place] [address] Pedro Luis Casas CRNP [address] [place] [address] 05/29/2024 10:30 AM EDT Office Visit Pharmacy, [facility] [address] [place] [address] [facility] [address] [place] [address] 06/04/2024 11:00 AM EDT Office Visit Orthopaedics [facility] [address] [place] [address] Bill Reilly MD [address] [place] [address] 06/28/2024 9:30 AM EST Office Visit Cardiology, [facility] [address] [place] [address] Markell Brooks PAEddyC [address] [place] [address] 08/28/2024 9:00 AM EST Office Visit Rheumatology [facility] [address] [facility] [place] [address] Matthew Mari MD [address] [facility] [place] [address] 09/17/2024 11:30 AM EST Office Visit Hematology/Oncology [facility] [address] [facility] [place] [id number] Angela Renteria CRNP [address] [facility] [place] [address] 11/19/2024 9:20 AM EDT Office Visit Hepatology, [facility] [address] [facility] [place] [address] Lali Chowdhury DO [address] [place] [address] Health Maintenance Due Date Last Done Comments [...] Additional history exists CKD PHOS USE SMARTSET 43157 08/05/202407/22, 08/09/2022, 08/06/2021, Additional history exists Diabetic Foot Exam 08/05/2024 08/05/2023, 1 09/18/2021, 09/04/2021, Additional history exists O2 ASSESSMENT COMPLETED IN PAST YEAR FOR COPD 11/30/2024 12/01/2023 B-12 12/14/2024 12/15/2023, 05/22, 11/12/2022, Additional history exists Adult Wellness Visit 03/27/2025 03/27/2024, 10/21/19 22 CKD HGB USE SMARTSET 31048 05/10/202505/10, 05/10/2024, 03/12/2024, Additional history exists Colonoscopy 11/30/2028 12/01/2023, 11/20, [...] encounter Visit Diagnoses Diagnosis Gastroesophageal reflux disease without esophagitis- Primary Esophageal reflux documented in this encounter Advance Directives Documents on File Type Date Recorded Patient [employer] 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 Care Teams Leather Sprayer Relationship Specialty Start Date End Date Brent Smith MD [address] [facility] [place] [address] PCP - General Family Medicine 04/20/23 documented as of this encounter"
--- OUTSIDE RECORDS SUMMARY | 2024-08-09 14:43 | External Medical Summary ---
Author Name Unknown Address Unknown Organization [id number]:[facility] [place] [address] [place] [address] Laboratory Report Ordering Provider Test Date Status ZIGGY GONZALEZ 05/10/2024 07:42:53 Final Observation Date Value Abnormality Reference (Units ) Status HbA1C 05/10/2024 07:42:53 8.1 Above high normal 4. 0-5.6 (%) Final The use of HbA1c to monitor glycemic status is based on normal hemoglobin and HbA composition. This test should not be used in patients with abnormal hemoglobin that affects the half life of the red blood cell or the in vivo glycation rates. Glucose, estimated average 05/10/2024 07:42:53 186 Above high normal <126 (mg/dL) Jerome ibarra Performing Location [facility] [place] [address] [place] [address]
--- OUTSIDE RECORDS SUMMARY | 2024-08-09 14:44 | External Medical Summary | Summary of Care ---
Author Name Unknown Organization [facility] Address [address] [place] [address] Phone [phone] Care Team Providers Care Grey Iron Molder Name Role Phone Brent Smith MD Primary Care Provider + Reason for Visit * Reason Comments Dosage Adjustment In Person (Anticoag Cl inic) Diabetes Follow-Up Encounter Details Date Type Department Care Team (Late st Contact Info) Description 03/27/2024 10:00 AM EDT Office Visit Pharmacy, [facility] [address] [place] [address] [facility] [address] [facility] [place] [id number] Type 2 diabetes mellitus with hemoglobin A1c goal of less than 8.0% ([facility])*; Coronary artery disease involving [place] heart without [...] as of this encounter (statuses as of 03/27/2024) Medications Medication Sig Dispensed Refills Start Date [...] 90 Tablet 3 04/01/2023 Active Nystatin-Triamcinol one 084481-7.1 UNIT/GM-% External Ointment (Mycolog)Indication s:Dermatitis Apply topically to affected area 3 times a day. Apply to affected area 15 g 1 04/18/2023 Active Furosemide 20 MG Oral Tablet (Lasix)Indications: HTN, goal below 140/90,Coronary artery disease involving [place] heart without angina pectoris, unspecified vessel or lesion type,Encounter for monitoring diuretic therapy,Old myocardial infarct Take 1 Tablet by mouth in the morning. 90 Tablet 3 05/13/2023 Active Pantoprazole Sodium 40 MG Oral Tablet Delayed Release (Protonix)Indicatio ns:Gastroesophageal reflux disease with esophagitis, unspecified whether hemorrhage TAKE 1 TABLET IN THE MORNING AND 1 TABLET BEFORE BEDTIME 180 Tablet 3 07/31/2023 Active metFORMIN HCl 1000 MG Oral Tablet (Glucophage)Indicat ions:Type 2 diabetes mellitus with hemoglobin A1c goal of less than 8.0% (HCC) TAKE 1 TABLET TWICE A DAY WITH MORNING AND EVENING MEALS 180 Tablet 3 08/29/2023 Active Pen [place] 32G X 4 MMIndications:Type 2 diabetes mellitus with hemoglobin A1c goal of less than 8.0% (HCC) Use as directed. To administer insulin. 100 Each 3 08/29/2023 Active Pioglitazone HCl 30 MG Oral Tablet (Actos) Take 1 Tablet by mouth in the morning. 90 Tablet 3 08/29/2023 Active FreeStyle LancetsIndications: Type 2 diabetes mellitus with hemoglobin A1c goal of less than 8.0% ([facility]) Use to test blood sugar twice daily or as directed E11.9 180 Each 09/08/2023 Active FreeStyle Lite Test In Vitro Strip (Glucose Blood)Indications:T ype 2 diabetes mellitus with hemoglobin A1c goal of less than 8.0% ([facility]) Use to test blood sugar twice [...] DINNER 90 Tablet 1 02/01/2024 Active Tiotropium [place]-Olodaterol 2.5-2.5 MCG/ACT Inhalation Aerosol Solution (Stiolto Respimat)Indication s:Centrilobular emphysema (HCC) Inhale 2 Puffs by mouth in the morning. 12 g 3 01/31/2024 Active FLUoxetine HCl 40 MG Oral Capsule (PROzac) Take 1 Capsule by mouth in the morning. 90 Capsule 1 03/07/2024 Active Insulin Glargine Solostar 100 UNIT/ML Subcutaneous Solution Pen-injector (Lantus SoloStar)Indication s:Type 2 diabetes mellitus with hemoglobin A1c goal of less than 8.0% (HCC) Inject 10 Units under the skin every evening. 15 mL 1 08/29/2023 Discontinue d(Patient preference/ discontinua tion) documented as of this encounter (statuses as of 03/27/2024) Active Problems Problem Noted Date Diagnosed Date [...] done. 11/11 Upper endoscopy ok. 12/10 in [place]--upper/lower scope WNL--angie [address] Kaushal Giang. 11/19/20 MRI C-Spine in [place]. DDD most C5-6. Mod central canal and mod left foraminal stenosis. Had C5-6 b/l NATAN 03/10 colon @[facility]--WNL angie 10y 03/07 MRI lumbar some [...] (coronary artery disease) 07/07/2012 Overview: STENT 2007 [facility], [place] 2004 HTN, goal below 140/90 04/10/2012 Overview: Per HTN Protocol #27. ADVANCE DIRECTIVE INFORMATION 03/19/2010 Overview: Information offered-patient declined. Type 2 diabetes mellitus wit h hemoglobin A1c goal of less than 8.0% 08/06/2009 Overview: Per Lipid Taxonomy. 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 Saw pulm. FAMILY HX-GI MALIGNANCY 02/09/2005 documented as of this encounter (statuses as of 03/27/2024) Resolved Problems Problem Noted Date Diagnosed Date [...] myocardial infarction 03/13/2009 Overview: Modified by Acute [place] Protocol #5. Major depressive disorder, r ecurrent episode, moderate 06/13/2013 documented as of this encounter (statuses as of 03/27/2024) Immunizations Name Administration Dates Next Due COVID-19 mRNA, LNP-s, No Pre serve, 2-Dose Series (Moderna) 10/27/2020,09/29/2020 COVID-19, LNP-s, No Preserve , Klaus-sucrose, Ages 12+ (Pfizer) 03/17/2022 COVID-19, MRNA-LNP, 23-24, P F, 30 MCG/0.3 mL, 12 YRS AND ABOVE, IM ([facility]) 06/07/2023 COVID-19, mRNA, LNP-s, PF, B ooster, 100mcg/0.5mg (Moderna) 07/03/2021 Covid-19, Mrna, Lnp-s, Pf, B ivalent, 30 Mcg, IM, 12 yrs and above ([employer]) 08/18/2022 H1N1 2009 Influenza, IM 09/05/2009 Hepatitis [...] Split, I IV3, With Preserve, Inj 06/03/2014,06/07/2013,04/27/2012,05/23,05/07/2010,09/05/2009,06/07/20 08,06/02/2007,06/09/2005 Seasonal Influenza, Trivalen t, Adjuvanted, 65+ yrs [...] this encounter Progress Notes * Liana Breaux, [facility] - 03/27/2024 9:42 AM EDT Medication Therapy Disease Management Clinic - Diabetes Management Progress Note Shelly Macdonald, identified by name and date of , is a 73 year old female being seen for diabetes management/education. Patient presents for return diabetic visit. DIABETES: Current diabetic medications: Metformin 1000 mg BID Actos 30 mg daily Lantus 10 units HS Medication Injection Site: Abdomen Lifestyle: Diet: unchanged Glucose Review/SMBG: Readings obtained from patient documented BG logbook Pre am Post am Pre Lunch Post Lunch Pre pm Post pm HS 3am 75 88 74 69 90 90 80 87 79 86 90 92 86 98 83 89 Average 85 #DIV/0! #DIV/0! #DIV/0! #DIV/0! #DIV/0! #DIV/0! #DIV/0! Hi 98 0 0 0 0 0 0 0 Lo 69 0 0 [phone] 0 0 0 0 0 0 0 Range 29 0 0 0 0 0 0 0 Hypoglycemia: Does your blood sugar go below 70 mg/dL? No Hyperglycemia symptoms present: none Recent Labs Units 01/27/24 0814 10/25/23 0917 08/05/23 1127 HEMOGLOBIN A1C - [facility] % 6.9* 8.8* 10.9* Recent Labs Units 01/27/24 0814 10/25/23 0917 08/05/23 1127 ESTIMATED GLOMERULAR FILTRATION RATE - [facility] mL/min 47* 50* 47* CREATININE - [facility] mg/dL 1.2* 1.2* 1.2* HYPERTENSION: Patient on ACEi/ARB: no, not indicated BP Readings from Last 3 Encounters: 03/15/24 108/69 02/20/24 140/80 01/31/24 141/73 Blood pressure at goal: yes HYPERLIPIDEMIA: Patient is taking moderate or high intensity statin: yes HEALTH MAINTENANCE REVIEW: Health Maintenance Due Topic Date Due DISCUSS TOBACCO CESSATION (REFER TO SMARTSET #3291) 05/10/2018 Depression Monitoring 09/04/2022 Adult Wellness Visit 10/20/2022 COVID-19 Vaccine () 10/08/2023 Mammogram 12/10/2023 ASSESSMENT & PLAN: ICD-10-CM 1. Type 2 diabetes mellitus with hemoglobin A1c goal of less than 8.0% (HCC) E11.9 2. Coronary artery disease involving [place] heart without angina pectoris, unspecified vessel or lesion type I25.10 3. HTN, goal below 140/90 I10 4. Dyslipidemia, goal LDL below 70 E78.5 BG Readings - Blood sugars controlled. BG values controlled at this time, having low BG values. Medications - Reviewed current regimen, patient is adherent to regimen. Will discontinue insulin atthis time and see if BG values can be maintained. Diet, Exercise, Lifestyle - No significant lifestyle changes since last visit. Discussed with patient, concern for weight gain. Discussed insulin place in weight gain. Patient is agreeable to SMBG 1 time(s) daily. Patient aware to contact clinic if any hypoglycemia before next visit. MEDICATION CHANGES: yes, see below; [facility] Medications: Metformin 1000 mg BID Actos 30 mg daily STOP: Lantus 10 units HS HEALTH MAINTENANCE INTERVENTIONS: Labs: Up to Date Immunizations: Up to Date Foot Exam: Up to Date Eye Exam: Up to Date Annual Wellness Visit: Visit Scheduled for t FOLLOW UP: Return to clinic in 8 weeks 03/27/2024 Liana Breaux RP Clinical Pharmacist - Pipeline Maintenance Supervisor Medication Therapy Management Clinic 03/27/2024, 9:42 AM documented in this encounter Plan of Treatment Upcoming Encounters Date Type Department Care Team (Late st Contact Info) Description 03/27/2024 11:20 AM EDT Laboratory Laboratory, [facility] [address] [place] [phone] Rik Steele [facility] [address] [facility] [place] [address] Type 2 diabetes mellitus with hemoglobin A1c goal of less than 8.0% (HCC); Vitamin D deficiency, unspecified 04/02/2024 10:00 AM EDT Telemedicine Psychiatry, [facility] [address] [place] [address] Pedro Luis Casas CRNP [address] [place] [address] 05/10/2024 8:20 AM EDT Office Visit Hepatology, [facility] [address] [place] [address] Lali Chowdhury DO [address] [place] [address] 05/10/2024 9:20 AM EDT Office Visit Family Practice [facility] [address] [place] [address] Brent Smith MD [address] [place] [address] 05/29/2024 10:30 AM EDT Office Visit Pharmacy, [facility] [address] [place] [address] [facility] [address] [place] [address] 06/28/2024 9:30 AM EST Office Visit Cardiology, [facility] [address] [place] [address] Markell Brooks PAEddyC [address] [place] [address] 08/28/2024 9:00 AM EST Office Visit Rheumatology [facility] [address] [facility] [place] [address] Matthew Mari MD [address] [facility] [place], [place] [address] 09/17/2024 11:30 AM EST Office Visit Hematology/Oncology [facility] [address] [facility] [place] [phone] Angela Renteria CRNP [address] [place] [address] [place] [address] Health Maintenance Due Date Last Done Comments Cologuard 1995 Sigmoidoscopy 1995 Fecal Occult Blood Test 01/20/2013 01/21/20 12, 10/07/2000, 10/05/1996 DISCUSS TOBACCO CESSATION (REFER TO SMARTSET #3291) 05/10/2018 05/10/2017 (Discussed) Depression Monitoring 09/04/2022 09/04/2021 Adult Wellness Visit 10/20/2022 10/20/2021 COVID-19 Vaccine ( season) 2023 06/07/2023, 08/18/2022, [...] Additional history exists CKD PHOS USE SMARTSET 09025 08/05/202407/22, 08/09/2022, 08/06/2021, Additional history exists Diabetic Foot Exam 08/05/2024 08/05/2023, 1 09/18/2021, 09/04/2021, Additional history exists O2 ASSESSMENT COMPLETED IN PAST YEAR FOR COPD 11/30/2024 12/01/2023 B-12 12/14/2024 12/15/2023, 05/22, 11/12/2022, Additional history exists CKD HGB USE SMARTSET 06695 03/12/202503/12, 03/12/2024, 02/14/2024, Additional history exists Colonoscopy 11/30/2028 12/01/2023, 11/20, 12/16/2020, Additional history exists Colorectal Cancer Screening 11/30/2028 DXA Scan 06/22/2029 06/22/2022, 11/0 08/2021, 10/22/2020, Additional history exists DTaP,Tdap,and Td [...] 8.0% (HCC)- Primary Coronary artery disease involving [place] heart without angina pectoris, unspecified vessel or lesion type HTN, goal below 140/90 Unspecified essential hypertension Dyslipidemia, goal LDL below 70 Other and unspecified hyperlipidemia Type 2 diabetes mellitus with hemoglobin A1c goal of less than 8.0% (HCC) Vitamin D deficiency, unspecified documented in this encounter Advance Directives Documents on File Type Date Recorded 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 Care Teams Grey Iron Molder Relationship Specialty Start Date End Date Brent Smith MD [address] [place] [id number] PCP - General Family Medicine 04/20/23 documented as of this encounter
--- OUTSIDE RECORDS SUMMARY | 2024-08-09 14:44 | External Medical Summary | Summary of Care ---
Author Name Unknown Organization [facility] Address [address] [address] Phone [phone] Care Team Providers Care Mat Weaver Name Role Phone Brent Smith MD Primary Care Provider + Reason for Visit * Reason Onset Date Comments Dosage Adjustment In Person (Anticoag Clinic) Adult Annual Wellness Visit, Subsequent Visit Adult Annual Wellness Visit, Subsequent Visit Encounter Details Date Type Department Care Team (Late st Contact Info) Description 03/27/2024 10:30 AM EDT Pharmacy Pharmacy, [facility] [address] [place] [id number] [facility] [address] [place] [id number] Type 2 diabetes mellitus with hemoglobin A1c goal of less than 8.0% ([facility])*; Vitamin D deficiency, unspecified; Routine general medical examination at a health care facility Allergies Active Allergy Reactions Criticality Noted Date [...] as of this encounter (statuses as of 03/28/2024) Medications Medication Sig Dispensed Refills Start Date [...] 90 Tablet 3 04/01/2023 Active Nystatin-Triamcinolo ne 155497-1.1 UNIT/GM-% External Ointment (Mycolog)Indications :Dermatitis Apply topically to affected area 3 times a day. Apply to affected area 15 g 1 04/18/2023 Active Furosemide 20 MG Oral Tablet (Lasix)Indications:H TN, goal below 140/90,Coronary artery disease involving [place] heart without angina pectoris, unspecified vessel or [...] MEALS 180 Tablet 3 08/29/2023 Active Pen Crum Lynne 32G X 4 MMIndications:Type 2 diabetes mellitus with hemoglobin A1c goal of less than 8.0% (HCC) Use as directed. To administer insulin. 100 Each 3 08/29/2023 Active Pioglitazone HCl 30 MG Oral Tablet (Actos) Take 1 Tablet by mouth in the morning. 90 Tablet 3 08/29/2023 Active FreeStyle LancetsIndications:T ype 2 diabetes mellitus with hemoglobin A1c goal of less than 8.0% ([facility]) Use to test blood sugar twice daily or as directed E11.9 180 Each 09/08/2023 Active FreeStyle Lite Test In Vitro Strip (Glucose Blood)Indications:Ty pe 2 diabetes mellitus with hemoglobin A1c goal of less than 8.0% ([facility]) Use to test blood sugar twice [...] DINNER 90 Tablet 1 02/01/2024 Active Tiotropium [place]-Olodaterol 2.5-2.5 MCG/ACT Inhalation Aerosol Solution (Stiolto Respimat)Indications :Centrilobular emphysema (HCC) Inhale 2 Puffs by mouth in the morning. 12 g 3 01/31/2024 Active FLUoxetine HCl 40 MG Oral Capsule (PROzac) Take 1 Capsule by mouth in the morning. 90 Capsule 1 03/07/2024 Active documented as of this encounter (statuses as of 03/28/2024) Active Problems Problem Noted Date Diagnosed Date [...] C5-6 b/l NATAN 03/10 colon [facility]--WNL angie 10y 03/07 MRI lumbar [...] Overview: STENT 2008 [facility], [place] 2004 HTN, goal below 140/90 04/10/2012 Overview: Per HTN Protocol #27. ADVANCE DIRECTIVE INFORMATION 03/19/2010 Overview: Information offered-patient declined. Type 2 diabetes mellitus wit h hemoglobin A1c goal of less than 8.0% 08/06/2009 Overview: Per Lipid Taxonomy. ICD-10 update of inactive term Old myocardial infarct 03/13/2009 Overview: INFEROLATERAL CA 2004 Chronic rhinitis 10/07/2008 Gastroparesis 04/27/2007 Sarcoidosis 05/12/2005 Overview: DX 2004 EGD showing nonnecrotizing granuloma stomach + wt loss. Saw pulm. FAMILY HX-GI MALIGNANCY 02/09/2005 documented as of this encounter (statuses as of 03/28/2024) Resolved Problems Problem Noted Date Diagnosed Date Resolved Date Coronary artery disease invo lving [place] coronary artery of [place] heart with unstable angina pectoris 09/05/2019 08/06/2021 [...] myocardial infarction 03/13/2009 Overview: Modified by Acute CA Protocol #5. Major depressive disorder, r ecurrent episode, moderate 06/13/2013 documented as of this encounter (statuses as of 03/28/2024) Immunizations Name Administration Dates Next Due COVID-19 [...] Tobacco: Every Day Cigarettes 0.5 59.6 Started: 1965 Passive Smoke Exposure: Past Smokeless [...] Sign Reading Time Taken Comments Blood Pressure 161/85 03/27/2024 11:21 AM EDT Pulse 61 03/27/2024 11:21 AM EDT Temperature - - Respiratory Rate - - Oxygen Saturation - - Inhaled Oxygen Concentration - - Weight 62.6 kg (138 lb) 03/27/2024 11:21 AM EDT Height 160 cm (5' 2.99") 03/27/2024 11:21 AM EDT Body Mass Index 24.45 03/27/2024 11:21 AM EDT documented in this [...] Yes 11/08/2014 documented as of this encounter Patient Instructions * Patient Instructions* Namita, Liana Michelle, [facility] - 03/27/2024 11:20 AM EDT Hi Ms. Macdonald, As your primary care physician, I know that regular visits with my patients who have several chronic conditions can go a long way in helping you stay healthy. Many times, the clinic team and I are in touch with you and/or other care team members between office visits to adjust medications, discuss any changes in your health, and review our care plan to make sure it is still meeting your needs. I am dedicated to helping you take a more active role in your overall care. It is important that there are resources available to you, so I created a personalized plan of care with a Health Calendar for you, which is included on the next page of this letter. Below is a list that summarizes your electronic health record: Health Maintenance Due: Health Maintenance Due Topic Date Due DISCUSS TOBACCO CESSATION (REFER TO SMARTSET #3291) 05/10/2018 Depression Monitoring 09/04/2022 Adult Wellness Visit 10/20/2022 COVID-19 Vaccine ( season) 2023 Mammogram 12/10/2023 Current Medication List: (as of 03/27/2024 (in office), Visit date not found (telemedicine) ) Current Outpatient Medications Medication Sig Dispense Refill [...] mouth daily with dinner. 90 Tablet 3 Amitriptyline HCl 10 MG Oral Tablet (Elavil) TAKE 1 TABLET BEFORE BEDTIME 90 Tablet 3 Nystatin-Triamcinolone 665852-0.1 UNIT/GM-% External Ointment (Mycolog) Apply topically to affected area 3 times a day. Apply to affected area 15 g 1 Furosemide 20 MG Oral Tablet (Lasix) Take 1 Tablet by mouth in the morning. 90 Tablet 3 Pantoprazole Sodium 40 MG Oral Tablet Delayed Release (Protonix) TAKE 1 TABLET IN THE MORNING AND 1 TABLET BEFORE BEDTIME 180 Tablet 3 metFORMIN HCl 1000 MG Oral Tablet (Glucophage) TAKE 1 TABLET TWICE A DAY WITH MORNING AND EVENING MEALS 180 Tablet 3 Pen Crum Lynne 32G X 4 MM Use as directed. [...] Inhalation Aerosol Solution Inhale 2 Puffs by mouthevery 6 hours as needed for Cough, Shortness [...] BEDTIME AND UP TO 3 ADDITIONAL TABLETS DURINGTHE DAY NEEDED FOR NECK AND HEAD PAIN [...] DAILY WITH DINNER 90 Tablet 1 Tiotropium [place]-Olodaterol 2.5-2.5 MCG/ACT Inhalation Aerosol Solution (Stiolto Respimat) Inhale 2 Puffs by mouth in the morning. 12 g 3 FLUoxetine HCl 40 MG Oral Capsule (PROzac) Take 1 Capsule by mouth in the morning. 90 Capsule 1 No current facility-administered medications for this visit. Current List of Allergies: (as of 03/27/2024 (in office), Visit date not found (telemedicine) ) Review of patient's allergies indicates: Allergen Reactions Angiotensin Receptor Blockers Other (Please comment) Hyperkalemia x's 2. Losartan Other (Please comment) HYPERKALEMIA Chantix [Varenicline] Nausea/vomiting Levofloxacin Other (Please comment) Joint pain Penicillins Edema Other and Hives Fluoride [Sodium Fluoride] Lip redness Lecithin Unknown Lovastatin Unknown Andriy Inhibitors Cough Most Recent Lab Results: Results for orders placed or performed in visit on 03/12/24 FERRITIN Result Value Ref Range Ferritin 140 13 - 150 ng/mL IRON SCREEN, INCLUDING TIBC Result Value Ref Range Iron 71 33 - 151 ug/dL Iron Binding Capacity 262 250 - 425 ug/dL Transferrin Saturation Percent 27 15 - 55 % CBC Result Value Ref Range WBC 7.74 4.00 - 10.80 K/uL RBC 4.13 3.85 - 5.15 M/uL HGB 12.5 12.0 - 15.3 g/dL HCT 38.1 36.0 - 45.2 % MCV 92.3 81.5 - 97.5 fL MCH 30.3 27.0 - 34.0 pg MCHC 32.8 32.0 - 36.0 g/dL RDW 18.9 11.5 - 15.5 % PLT 165 140 - 400 K/uL MPV 10.1 6.6 - 11.1 fL DIFFERENTIAL, AUTOMATED Result Value Ref Range WBC 7.74 4.00 - 10.80 K/uL Neutrophils % 64.8 40.0 - 75.0 % Lymphocytes % 24.8 18.0 - 42.0 % Monocytes % 9.7 1.0 - 11.0 % Eosinophils % 0.1 0.0 - 6.0 % Basophils % 0.6 0.0 - 2.0 % Absolute Neutrophils 5.01 1.80 - 7.70 K/uL Absolute Lymphocytes 1.92 1.00 - 4.80 K/ul Absolute Monocytes 0.75 0.00 - 1.10 K/uL Absolute Eosinophils 0.01 0.00 - 0.70 K/uL Absolute Basophils 0.05 0.00 - 0.20 K/uL *Note: Due to a large number of results and/or encounters for the requested time period, some results have not been displayed. A complete set of results can be found in Results Review. Sincerely, Brent Smith MD 03/27/2024 [facility] Calendar (as of 03/27/2024 (in office), Visit date not found (telemedicine) ) Care needs Care needs Last completed Due next Discuss quitting tobacco use 05/10/2017 (DISCUSSED) 05/10/2018 Adult Wellness Visit 10/20/2021 10/20/2022 COVID-19 Vaccine ( season) 2023 10/08/2023 Mammogram 12/09/2022 12/10/2023 Flu vaccine (recommended) (1) 05/06/2023 04/22/2024 Diabetic Eye Exam 06/30/2023 (DONE ELSEWHE) 06/30/2024 A1C blood sugar test 01/27/2024 07/28/2024 Kidney Function Test 01/27/2024 07/28/2024 Urine albumin/creatinine test 08/05/2023 08/05/2024 Diabetic Foot Exam 08/05/2023 08/05/2024 Yearly COPD oxygen test 12/01/2023 11/30/2024 Yearly B-12 vitamin test 12/15/2023 12/14/2024 Colorectal cancer screening (colonoscopy 10 years, sigmoidoscopy 5 years, Cologuard 3 years, stool sample 1 year) 12/01/2023 11/30/2028 Bone Density 06/22/2022 06/22/2029 Diphtheria, tetanus & pertussis vaccines (3 - Td or Tdap) 05/31/2023 05/31/2033 As you look over the recommended services, be sure to check with your insurance company to determine what's covered. [employer] is a great tool that helps you review your medical record online, including test results, doctor notes and your health summary. You can also schedule appointments with me and other members of your care team, request prescription refills and ask for advice related to your medical conditions at [email or web address]. documented in this encounter Progress Notes * Liana Breaux RPh - 03/27/2024 9:43 AM EDT I had the privilege of seeing Shelly Macdonald for an Annual Wellness Visit today. Care Gaps and Best Practices were addressed as appropriate I reviewed health maintenance items and preventative health recommendations. All other screenings and interventions are noted below. Adult Annual Wellness Visit: Shelly Macdonald is a 73 year old female who presents for an Adult Annual Wellness Visit. Depression Screening: Did the patient complete the screening questionnaire for Depression? Yes Is the patient's total score for Depression 15 or greater? No, no further intervention needed, unless requested by patient. Did the patient answer positively to the suicide question? No, no further intervention needed, unless requested by patient. In general, compared to other people your age, what would you say that your health is? Fair Ht Readings from Last 1 Encounters: 03/27/24 1.6 m (5' 2.99") Wt Readings from Last 1 Encounters: 03/27/24 62.6 kg (138 lb) Body Mass Index: BMI Less than 30 Body mass index is 24.45 kg/m. BP Readings from Last 1 Encounters: 03/27/24 161/85 Medical/Surgical/Family History Reviewed: Yes Past Medical History: Diagnosis Date ASCVD (arteriosclerotic cardiovascular disease) 07/07/2012 STENT 2007 [place], [place] 2003 Autoimmune hepatitis (HCC) 05/06/2023 CAD (coronary artery disease) 07/07/2012 STENT 2007 [place] 2004 Cervical disc disorder 04/23/2014 Chronic back [...] intractable 09/23/2015 Old myocardial infarct 03/13/2009 INFEROLATERAL CA 2004 LUISA (obstructive sleep apnea) 10/13/2017 S/P cardiac cath 10/17/2018 Sarcoidosis 05/12/2005 DX 2004 EGD showing nonnecrotizing granuloma stomach + wt loss. Saw pulm. Past Surgical History: Procedure Laterality Date CARDIAC CATH-CARDIOLOGY ONLY 11/06/2007 STENTED - taxus express 2 CARDIAC CATH-CARDIOLOGY ONLY 10/17/2018 2 stents LAD @[facility]. [facility] Morales CARDIAC CATH-CARDIOLOGY ONLY 01/29/2019 drug eluiting stent LAD at [facility] CARPAL TUNNEL SURGERY Bilateral Carpal Tunnel repair COLONOSCOPY THRU STOMA, W/BIOPSY 06/15/2007 hyperplastic, repeat in 10 years COLONOSCOPY, DIAGNOSTIC (RECTUM) 05/15/2012 COLONOSCOPY FLEXIBLE PROXIMAL DIAGNOSTIC performed by Robina Lozoya DO at ENDOSCOPY [facility],HYPERPLASTIC POLYPS REPEAT COLONOSCOPY IN 5 YEARS COLONOSCOPY, DIAGNOSTIC (RECTUM) 07/12/2016 tortuous colon, diverticulosis, repeat 5 yrs/[facility] COLONOSCOPY, DIAGNOSTIC (RECTUM) 12/01/2023 COLONOSCOPY FLEXIBLE PROXIMAL DIAGNOSTIC performed by Zenobia Costa MD at ENDOSCOPY [facility] EGD, FLEXIBLE, DIAGNOSTIC 07/12/2016 normal bx/[facility] EGD, FLEXIBLE, DIAGNOSTIC 11/18/2022 biopsies normal/ESOPHAGOGASTRODUODENOSCOPY (EGD), FLEXIBLE, TRANSORAL, DIAGNOSTIC performed by MD Marcial at ENDOSCOPY [facility] EGD, FLEXIBLE, DIAGNOSTIC 12/01/2023 ESOPHAGOGASTRODUODENOSCOPY (EGD), FLEXIBLE, TRANSORAL, DIAGNOSTIC performed by Zenobia Costa MD at ENDOSCOPY [facility] EGD, W/ENDOSCOPIC US 11/29/2012 UPPER GI ENDOSCOPY ENDOSCOPIC ULTRASOUND performed by Chikis Cole DO at OR [facility]: benign polyp to stomach EGD, W/ENDOSCOPIC US 01/25/2023 mild liver fibrosis, GB sludge / ESOPHAGOGASTRODUODENOSCOPY (EGD), FLEXIBLE, TRANSORAL, ENDOSCOPIC ULTRASOUND performed by Miguel Ruff MD at ENDOSCOPY [facility] INFORMATION Laparoscopy X3 KNEE ARTHROSCOPY, DIAGNOSTIC Right Knee Scope,Diagnostic MISCELLANEOUS ORDER ([facility] ONLY) 05/19/2016 NATAN L5-s1 Dr Leija [facility] OTHER Bilateral 02/09/2021 b/l C5-6 NATAN at [facility] REMOVE TONSILS & ADENOIDS, UNDER 12 SMALL BOWEL ENDOSCOPY W/BX 03/2007 TENDON SHEATH INCISION, FINGER Right 11/28/2017 TRIGGER FINGER RELEASE performed by Marcelo Arnold DO at OR [facility] TENDON SHEATH INCISION, FINGER Left 09/21/2023 LEFT TRIGGER FINGER RELEASE performed by iBll Reilly MD at OR [facility] TOTAL HYSTERECTOMY VALARIE (Total Abdominal Hysterectomy) Family History Problem Relation Name Age of [...] (Maternal) Chiqui M Stroke Grandmother (Paternal) Morena Has patient ever had cancer? No Social History Tobacco Use Smoking status: Every Day Current packs/day: 0.50 Average packs/day: 0.5 packs/day for 59.6 years (29.8 ttl pk-yrs) Types: Cigarettes Start date: 1964 Passive exposure: Past Smokeless tobacco: Never Tobacco comments: 1/2 ppd;08/19/21,tired to quit 8 times, x 2 with chantix with bad side effects Substance Use Topics Alcohol use: Yes Comment: rare Vaping/E-Cigarette Use Vaping/E-Cigarette Use Never User Vaping/E-Cigarette Substances Nicotine No Other No Flavoring No THC No Cannabidiol (CBD) No Vaping/E-Cigarette Devices Disposable No Pre-filled or Refillable Cartridge No Refillable Tank No Pre-filled Pod No Tobacco/Alcohol screening completed today? Yes Hospital Care: Admissions (within the last year): Not Applicable ER within 30 days: No Does the patient have an Advance Directives/Living Will? Yes Last Physical Exam: Last physical exam: 09/27/23 Does patient see primary provider regularly? Yes Does patient see other providers? Yes, Specialist Patient Care Team updated? Yes Review of patient's allergies indicates: Allergen Reactions Angiotensin Receptor Blockers Other (Please comment) Hyperkalemia x's 2. Losartan Other (Please comment) HYPERKALEMIA Chantix [Varenicline] Nausea/vomiting Levofloxacin Other (Please comment) Joint pain Penicillins Edema Other and Hives Fluoride [Sodium Fluoride] Lip redness Lecithin Unknown Lovastatin Unknown Andriy Inhibitors Cough Immunization History Administered Date(s) Administered COVID-19 mRNA, LNP-s, No Preserve, 2-Dose Series (Moderna) 09/29/2020, 10/27/2020 COVID-19, LNP-s, No Preserve, Klaus-sucrose, Ages 12+ (Pfizer) 03/17/2022 COVID-19, MRNA-LNP, 23-24, PF, 30 MCG/0.3 mL, 12 YRS AND ABOVE, IM ([employer]) 06/07/2023 COVID-19, mRNA, LNP-s, PF, Booster, 100mcg/0.5mg ([employer]ikro Odeme | 3paya) 07/03/2021 Covid-19, Mrna, Lnp-s, Pf, Bivalent, 30 Mcg, IM, 12 yrs and above ([employer]) 08/18/2022 H1N1 2009 Influenza, IM 09/05/2009 Hepatitis B Vaccine 04/13/2012, 08/24/2012 Hepatitis B, 20+ yrs 03/25/2017, 05/02/2017, 11/11/2017 Pneumococcal Conjugate Vacc, 13 Valent (Prevnar) 05/27/2015 Pneumococcal Polysaccharide PPV23 (Pneumovax) 06/12/2003, 05/13/2013, 08/05/2016 Pneumococcal Vaccine, Unspecified Formulation 05/13/2013 Seasonal Influenza Virus Vaccine, Unspecified Formulation 06/05/1998, 06/01/2006, 04/29/2018, 06/02/2019 Seasonal Influenza, PF, 6 M & above, IM , (FluLaval or Fluzone) 06/14/2018 Seasonal Influenza, Quadrivalent Hd (Fluzone Hd) 06/16/2021, 05/13/2022, 05/06/2023 Seasonal Influenza, Quadrivalent, No Preserve, IM 05/27/2015, 06/24/2016, 05/10/2017 Seasonal Influenza, Split, IIV3, With Preserve, Inj 07/31/2001, 06/04/2002, 06/12/2003, 06/09/2005,06/02/2007, 06/07/2008, 09/05/2009, 05/07/2010, 06/16/2011, 04/27/2012, 06/07/2013, 06/03/2014 Seasonal Influenza, Trivalent, Adjuvanted, 65+ yrs 05/10/2019 TD - Tetanus/Diptheria (ADULT) 03/01/2006 TDAP (age 10 and older)(Boostrix) 09/15/2012, 05/31/2023 Tetanus Toxid Adsorbed 11/18/2008 Varicella Zoster Vaccine (Adult) 09/27/2012 Zoster Vaccine Recombinant (Shingrix) 02/10/2021, 04/13/2021 Current Outpatient Medications Medication Sig Dispense Refill [...] TABLET BEFORE BEDTIME 90 Tablet 3 Nystatin-Triamcinolone 591657-7.1 UNIT/GM-% External Ointment (Mycolog) Apply topically to affectedarea 3 times a day. Apply to affected area 15 g 1 Furosemide 20 MG Oral Tablet (Lasix) Take 1 Tablet by mouth in the morning. 90 Tablet 3 Pantoprazole Sodium 40 MG Oral Tablet Delayed Release (Protonix) TAKE 1 TABLET IN THE MORNING AND 1TABLET BEFORE BEDTIME 180 Tablet 3 metFORMIN HCl 1000 MG Oral Tablet (Glucophage) TAKE 1 TABLET TWICE A DAY WITH MORNING AND EVENING MEALS 180 Tablet 3 Pen Crum Lynne 32G X 4 MM Use as directed. [...] DAILY WITH DINNER 90 Tablet 1 Tiotropium [place]-Olodaterol 2.5-2.5 MCG/ACT Inhalation Aerosol Solution (Stiolto Respimat) Inhale2 Puffs by mouth in the morning. 12 g 3 FLUoxetine HCl 40 MG Oral Capsule (PROzac) Take 1 Capsule by mouth in the morning. 90 Capsule 1 No current facility-administered medications for this visit. Patient Active Problem List Diagnosis FAMILY HX-GI MALIGNANCY Sarcoidosis ADVANCE DIRECTIVE INFORMATION Gastroparesis Chronic rhinitis Old myocardial infarct Type 2 diabetes mellitus with hemoglobin A1c goal of less than 8.0% ([facility]) HTN, goal below 140/90 CAD (coronary artery [...] COPD, group B, by GOLD 2017 classification ([facility]) Medication Compliance: Patient is able to obtain all of her medications? Yes Patient takes medications as prescribed? Yes Patient manages own medications: Yes Patient uses a pill box? Yes, refill(s) completed by self Dental Exam: Yes: Every 6 Months Eye Screening: Yes: Every year Are you having trouble with hearing? Yes Do you use an assistive device to help your hearing? Yes Exercise Screening: exercises 3-4 times per week Nutrition Assessment: Eats a balanced diet and Eats three meals a day Pain Screening: Are you having any pain? Yes. Pain Scale: 4 out of 10; but can be 6-7/10 Location: back/headaches, small joint pain involving most/many of the small joints-hands/feet/knees/elbows, When: constant, Duration: constant, Aggravating Factors: n/a, Relieved by: advil ocassionally Sleep Screening Tool 'STOP': Do you snore? No Do you feel fatigued during the day? Yes Do you wake up feeling like you haven't slept? No Have you been told you stop breathing at night? No Do you gasp for air or choke while sleeping? No Have you been told you have Sleep Apnea? No Do you have high blood pressure or are on medication(s) to control high blood pressure? Yes SCORE: If you check YES to two or more questions, make a referral for Obstructive Sleep Apnea Patient and Caregiver Support System: Patient lives with a spouse Means of Transportation: Drives. Not a concern. Patient lives in [place] Community Resources: Not Applicable Functional Status and ADL Skills: Has patient ever had an amputation? No Functional Assessment: 90- Able to carry on normal activity, minor symptoms of disease Ambulation: Patient ambulates without assistive device. Independent Dressing: Gets clothes and dresses without any assistance: Independent Able to move freely in chair or bed including turning over: Independent Repositioning (bed or chair): Not applicable Transfers: Independent Toileting: Goes to bathroom, uses toilet, arranges clothes and returns without any assistance: Independent Toileting: continent of bladder and continent of bowel Feeding: Self Bathing: Self; Not Applicable Requires none assistance with ADLs. Instrumental ADL's: Shopping: Independent Housekeeping: Independent Handling Finances: Independent DME Vendor Name: Not Applicable Fall Risk Assessment: Can the patient demonstrate that she can stand from a sitting position? Yes Has the patient had a fall within the last 6 months? Yes Does the patient have a problem with her gait or balance? No Does the patient take 4 or more prescription medicines? Yes Does the patient use sedatives or narcotics? Yes Fall Risk Factors Present: Uses more than 4 medications Uses sedatives or narcotics Older than age 70 Sls-Jr-yyy-Go Test: Time began at 10:33. Patient stood from sitting position and walked approximately 10 feet, returnedand sat down. Total time for fqa-kz-ljc-go test was 20 seconds. Gij-Kz-ycu-Go Test completed? Yes Gender Specific Preventative Plan: Health Maintenance Topic Date Due DISCUSS TOBACCO CESSATION (REFER TO Kid$ShirtSET #3291) 05/10/2018 Depression Monitoring 09/04/2022 Adult Wellness Visit 10/20/2022 COVID-19 Vaccine ( season) 2023 Mammogram 12/10/2023 Influenza Vaccine (FLU shot) (1) 04/22/2024 Diabetic Eye Exam 06/30/2024 HbA1c 07/28/2024 GFR 07/28/2024 Albumin/Creatinine Ratio 08/05/2024 Diabetic Foot Exam 08/05/2024 CKD PHOS USE SMARTSET 75349 08/05/2024 O2 ASSESSMENT COMPLETED IN PAST YEAR FOR COPD 11/30/2024 B-12 12/14/2024 CKD HGB USE SMARTSET 06511 03/12/2025 Colorectal Cancer Screening 11/30/2028 DXA Scan 06/22/2029 DTaP,Tdap,and Td Vaccines (3 - Td or Tdap) 05/31/2033 Alpha-1 Antitrypsin Completed Hepatitis B Vaccine Completed Lung Cancer Screening Completed Zoster Vaccines Completed Pneumococcal Vaccine: 65+ Years Completed MENINGOCOCCAL (MENACTRA/MENVEO) Aged Out HPV (Gardasil) Vaccine Aged Out RETIRED - COLONOSCOPY-EVERY 5 YRS AGES 18-100 Discontinued Follow Up/ Referrals/Handouts: Smoker - Provided Quit Line. Pain screening - Continues with chronic pain of back and unresolved headaches that are not similar to migraine issues of the past, will discuss with pcp Concern for pantoprazole use, notes many years and also prilosec used many years prior, will discuss with pcp Type 2 diabetes mellitus with hemoglobin A1c goal of less than 8.0% ([facility]) (Primary) - 25-HYDROXY VITAMIN D; Future; Expected date: 03/27/2024 Vitamin D deficiency, unspecified - 25-HYDROXY VITAMIN D; Future; Expected date: 03/27/2024 Routine general medical examination at a health care facility Follow Up: Return in 1 year (on 03/27/2025) for 12 month Subsequent Adult Wellness Visit. | For: 12 month Subsequent Adult Wellness Visit | Check-out note: 12 month Subsequent Adult Wellness Visit Would patient like to schedule next AWV visit? No Liana Breaux RPh AD8 Dementia Screening Interview Person answering questions: patient Remember, "Yes, a change" indicates that there has been a change in the last several years caused by cognitive (thinking and memory) problems 1. Problems with judgement (eg: problems making decisions, bad financial decisions, problems with thinking). No (0) 2. Less interest in hobbies/activities. Yes (1) 3. Repeats the same things over and over (questions, stories, or statements). No (0) 4. Trouble learning how to use a tool, appliance, or gadget (eg: VCR, computer, microwave, remote control). No (0) 5. Forgets correct month or year. No (0) 6. Trouble handling complicated financial affairs (eg: balancing checkbook, income taxes, paying bills). No (0) 7. Trouble remembering appointments. No (0) 8. Daily problems with thinking and/or memory. No (0) TOTAL AD8: 1 - AD8 Dementia Screening Score The final score is a sum of the number items marked "Yes, A Change". 0 - 1: Normal cognition; 2 or greater: Cognitive impairments is likely to be present - further testing required documented in this encounter Plan of Treatment Upcoming Encounters Date Type Department Care Team (Late st Contact Info) Description 04/02/2024 10:00 AM EDT Telemedicine Psychiatry, [facility] [address] [place] [address] Pedro Luis Casas CRNP [address] [place] [address] 05/10/2024 8:20 AM EDT Office Visit Hepatology, [facility] [address] [place] [address] Lali Chowdhury DO [address] [place] [address] 05/10/2024 9:20 AM EDT Office Visit Family Practice [facility] [address] [place] [address] Brent Smith MD [address] [place] [address] 05/29/2024 10:30 AM EDT Office Visit Pharmacy, [facility] [address] [place] [address] [facility] [address] [place] [address] 06/28/2024 9:30 AM EST Office Visit Cardiology, [facility] [address] [place] [address] Markell Brooks PA-C [address] [place] [address] 08/28/2024 9:00 AM EST Office Visit Rheumatology [address] [place] [address] Matthew Mari MD [address] [place] [address] [place] [address] 09/17/2024 11:30 AM EST Office Visit Hematology/Oncology Francisco Rodas [place] [address] [facility] [place], [place] [address] Angela Renteria CRNP [address] [place] [address] Health Maintenance Due Date [...] Additional history exists CKD PHOS USE SMARTSET 85626 08/05/202407/22, 08/09/2022, 08/06/2021, Additional history exists Diabetic Foot Exam 08/05/2024 08/05/2023, 1 09/18/2021, 09/04/2021, Additional history exists O2 ASSESSMENT COMPLETED IN PAST YEAR FOR COPD 11/30/2024 12/01/2023 B-12 12/14/2024 12/15/2023, 05/22, 11/12/2022, Additional history exists CKD HGB USE SMARTSET 50542 03/12/202503/12, 03/12/2024, 02/14/2024, Additional history exists Adult [...] Not on filedocumented as of this encounter Results * 25-HYDROXY VITAMIN D (03/27/2024 10:50 AM EDT) 25-Hydroxy Vitamin D 61 >19 ng/mL 03/27/2024 9:14 PM EDT LABORATORY [facility] Blood Venous blood specimen / Unknown Venipuncture / Unknown 03/27/2024 10:50 AM EDT 03/27/2024 10:50 AM EDT Narrative LABORATORY [facility] - 03/27/2024 9:14 PM EDT Deficient: <20 ng/mL Insufficient: 20-29 ng/mL Recommended/Optimum:30-50 ng/mL Vitamin D intoxication is rare. If suspicious of Vitamin D toxicity, evaluation of serum Calcium and PTH is recommended. Liana Breaux [facility] LAB BLOOD [place] [facility] [address] [facility] [place] [address] documented in this encounter Visit Diagnoses Diagnosis Type 2 diabetes mellitus with hemoglobin A1c goal of less than 8.0% ([facility])- Primary Vitamin D deficiency, unspecified Routine general medical examination at a health care facility documented in this encounter Advance Directives Documents on File Type Date Recorded Patient Ict Development Manager 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 Care Teams Mat Weaver Relationship Specialty Start Date End Date Brent Smith MD [address] [facility] [place] [address] PCP - General Family Medicine 04/20/23 documented as of this encounter
--- OUTSIDE RECORDS SUMMARY | 2024-08-09 14:44 | External Medical Summary | Summary of Care ---
Author Name Unknown Organization [facility] Address [address] [facility] [place] [address] Phone [phone] Care Team Providers Care Workers Compensation Attorney Name Role Phone Brent Smith MD Primary Care Provider + Reason for Visit * Reason Comments Anxiety Encounter Details Date Type Department Care Team (Late st Contact Info) Description 04/02/2024 10:00 AM EDT Telemedicine Psychiatry, [facility] [address] [place] [address] Kirit Casas CRNP [address] [place] [address] Major depressive disorder, recurrent severe without psychotic [...] as of this encounter (statuses as of 04/02/2024) Medications Medication Sig Dispensed Refills Start Date [...] 90 Tablet 3 04/01/2023 Active Nystatin-Triamcinolo ne 387589-5.1 UNIT/GM-% External Ointment (Mycolog)Indications :Dermatitis Apply topically to affected area 3 times a day. Apply to affected area 15 g 1 04/18/2023 Active Furosemide 20 MG Oral Tablet (Lasix)Indications:H TN, goal below 140/90,Coronary artery disease involving [place] heart without angina pectoris, unspecified vessel or [...] MEALS 180 Tablet 3 08/29/2023 Active Pen Empire 32G X 4 MMIndications:Type 2 diabetes mellitus with hemoglobin A1c goal of less than 8.0% (HCC) Use as directed. To administer insulin. 100 Each 3 08/29/2023 Active Pioglitazone HCl 30 MG Oral Tablet (Actos) Take 1 Tablet by mouth in the morning. 90 Tablet 3 08/29/2023 Active FreeStyle LancetsIndications:T ype 2 diabetes mellitus with hemoglobin A1c goal of less than 8.0% ([facility]) Use to test blood sugar twice daily or as directed E11.9 180 Each 3 09/08/2023 Active FreeStyle Lite Test In Vitro Strip (Glucose Blood)Indications:Ty pe 2 diabetes mellitus with hemoglobin A1c goal of less than 8.0% ([facility]) Use to test blood sugar [...] DINNER 90 Tablet 1 02/01/2024 Active Tiotropium Gordon-Olodaterol 2.5-2.5 MCG/ACT Inhalation Aerosol Solution (Stiolto Respimat)Indications [...] the morning. 30 Tablet 5 03/29/2024 Active documented as of this encounter (statuses as of 04/02/2024) Active Problems Problem Noted Date Diagnosed Date [...] xray 07/07/16 Well adult exam 03/12/2016 Overview: Andrzej. Sees Stefania Troy. 03/09 starting new therapist Stefania. with leukoencepholopathy 11/12 Colon WNL. Angie 10y? EGD WNL (dilated) 02/11 EUS/FNA done. 11/11 Upper endoscopy ok. 12/10 in [place]--upper/lower scope WNL--angie [address] Kaushal Giang. 11/19/20 MRI C-Spine in [place]. DDD most C5-6. Mod central canal and mod left foraminal stenosis. Had C5-6 b/l NATAN 03/10 colon [facility]--WNL angie 10y 03/07 MRI lumbar some arthritis [...] (coronary artery disease) 07/07/2012 Overview: STENT 2007 [facility] [place] [place] 2004 HTN, goal below 140/90 04/10/2012 Overview: Per HTN Protocol #27. ADVANCE DIRECTIVE INFORMATION 03/19/2010 Overview: Information offered-patient declined. Type 2 diabetes mellitus wit h hemoglobin A1c goal of less than 8.0% 08/06/2009 Overview: Per Lipid Taxonomy. ICD-10 update of inactive term Old myocardial infarct 03/13/2009 Overview: INFEROLATERAL CT 2004 Chronic rhinitis 10/07/2008 Gastroparesis 04/27/2007 Sarcoidosis 05/12/2005 Overview: DX 2004 EGD showing nonnecrotizing granuloma stomach + wt loss. Saw pulm. FAMILY HX-GI MALIGNANCY 02/09/2005 documented as of this encounter (statuses as of 04/02/2024) Resolved Problems Problem Noted Date Diagnosed Date Resolved Date Coronary artery disease invo lving [place] coronary artery of [place] heart with unstable angina pectoris 09/05/2019 08/06/2021 [...] myocardial infarction 03/13/2009 Overview: Modified by Acute CT Protocol #5. Major depressive disorder, r ecurrent episode, moderate 06/13/2013 documented as of this encounter (statuses as of 04/02/2024) Immunizations Name Administration Dates Next Due COVID-19 mRNA, LNP-s, No Pre serve, 2-Dose Series (Moderna) 10/27/2020,09/29/2020 COVID-19, LNP-s, No Preserve , Klaus-sucrose, Ages 12+ (Pfizer) 03/17/2022 COVID-19, MRNA-LNP, 23-24, P F, 30 MCG/0.3 mL, 12 YRS AND ABOVE, IM ([facility]) 06/07/2023 COVID-19, mRNA, LNP-s, PF, B ooster, [...] as of this encounter Progress Notes * Kirit Casas CRNP - 04/02/2024 10:04 AM EDT OUTPATIENT BEHAVIORAL HEALTH RETURN VISIT NOTE Jas Tavares [address] [place] [address] 04/02/2024 Shelly Macdonald Patient location: HOME. I was not in a hospital or clinic location. After connecting through telephone, patient was verified with two unique identifiers. Patient (or authorized legal inbound customer service representative) was then informed that this was a Telemedicine visit and being conducted confidentially over secure lines. Methods to assure confidentiality were taken. Patient acknowledged consent and understanding of privacy and security of the Telemedicine visit. The patient agreed to participate. Clinical Tools - HILLARY-7 | PHQ-9 | AIMS | Carlos Vu Safety Plan :[id number]} Risk Assessment: Completed and No acute safety concerns, chronic passive SI, denies plan/intent Interval History: Shelly is a 73 year old female presenting today for a follow- up appointment. Pt reports feeling "pretty much the same, I'm still feeling the effects of the anemia and having daily headaches. And nobody knows why." Methotrexate and Folic Acid are to be initiated for this. Appetite is undisturbed. Cough / allergies is improved with new inhaler and Zyrtec. She is satisfied with current dosing of Prozac. Her is following with hematology this coming , may require 3rd sinus surgery. "Since I have nothing else to do but worry, that's what I've been doing." Explored activities or coping strategies that can help distract during these times, including reading, computer games, household activities. "We always had a trip or something to look forward to," however they had to cancel for this year. "We're just not going anywhere, literally and figuratively." States "it can get overwhelmingbut.. I don't get obsessed with it.. I'm trying very hard not to go down that road." Medication Side-Effects: denies Patient's last PHQ-9 score (Adult) - 2 and Patient's last HILLARY-7 score - Total:15 Substance Abuse History: Cigarettes over past >40 [...] with psychiatry or therapy since moving to [facility] 2020. Lives in home with . Retired [...] with questions. Time Spent on Visit total: 20 minutes - including preparing to see the patient, reviewing history, performing evaluation, counseling/educating patient, ordering medications/tests, documenting clinical information. Kirit Casas, MSN, LACING PRESSER, PMHNP- Nurse Practitioner - Outpatient Psychiatry [facility] [place] 04/02/2024 Crisis Planning: Shelly Macdonald has been provided [...] anxiety and depression. documented in this encounter Miscellaneous Notes * Addendum Note - Kirit Casas CRNP - 04/02/2024 10:22 AM EDTAddended by: KIRIT CASAS on: 04/02/2024 10:22 AM Modules accepted: Level of Service documented in this encounter Plan of Treatment Upcoming Encounters Date Type Department Care Team (Late st Contact Info) Description 05/10/2024 8:20 AM EDT Office Visit Hepatology, [facility] [address] [place] [address] Lali Chowdhury DO [address] [place] [address] 05/10/2024 9:20 AM EDT Office Visit Family Practice [facility] [address] [place] [address] Brent Smith MD [address] [place] [address] 05/28/2024 10:30 AM EDT Telemedicine Psychiatry, [facility] [address] [place] [address] Kirit Casas CRNP [address] [place] [address] 05/29/2024 10:30 AM EDT Office Visit Pharmacy, [facility] [address] [place] [address] Cedric [facility] [address] [place] [address] 06/28/2024 9:30 AM EST Office Visit Cardiology, [facility] [address] [place] [address] Markell Brooks PA-C [address] [place] [address] 08/28/2024 9:00 AM EST Office Visit Rheumatology [facility] [address] [place] [address] Matthew Mari MD [address] [place] [address] 09/17/2024 11:30 AM EST Office Visit Hematology/Oncology [facility] [address] [place] [address] Angela Renteria CRNP [address] [facility] [place] [phone] Health Maintenance Due Date Last Done Comments Cologuard 1995 Sigmoidoscopy 1995 Fecal Occult Blood Test 01/20/2013 01/21/20 12, 10/07/2000, 10/05/1996 DISCUSS TOBACCO CESSATION (REFER TO SMARTSET #3291) 05/10/2018 05/10/2017 (Discussed) Depression Monitoring 09/04/2022 09/04/2021 COVID-19 Vaccine ( season) 2023 06/07/2023, 08/18/2022, 03/17/2022, Additional history exists Mammogram 12/10/2023 12/09/2022, 04/2 , 08/20/2021, Additional history exists Influenza Vaccine (FLU shot) (#1) 2024 05/06/2023, 05/13/2022, 06/16/2021, Additional history exists Diabetic Eye Exam 06/30/2024 06/30/2023, (Done elsewhere), 06/30/2023, Additional history exists GFR 07/28/2024 01/27/2024, 03/0 12/2023, 08/05/2023, Additional history exists HbA1c 07/28/2024 01/27/2024, 0312/2023, 08/05/2023, Additional history exists Albumin/Creatinine Ratio 08/05/2024 023, 05/06/2023, 07/10/2022, Additional history exists CKD PHOS USE SMARTSET 09669 08/05/202407/22, 08/09/2022, 08/06/2021, Additional history exists Diabetic Foot Exam 08/05/2024 08/05/2023, 1 09/18/2021, 09/04/2021, Additional history exists O2 ASSESSMENT COMPLETED IN PAST YEAR FOR COPD 11/30/2024 12/01/2023 B-12 12/14/2024 12/15/2023, 05/22, 11/12/2022, Additional history exists CKD HGB USE SMARTSET 56751 03/12/202503/12, 03/12/2024, 02/14/2024, Additional history exists Adult [...] Documents on File Type Date Recorded Patient Social Scientist 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 Care Teams Workers Compensation Attorney Relationship Specialty Start Date End Date Brent Smith MD [address] [facility] [place] [address] PCP - General Family Medicine 04/20/23 documented as of this encounter
--- OUTSIDE RECORDS SUMMARY | 2024-08-09 14:44 | External Medical Summary | Summary of Care ---
Author Name Unknown Organization [facility] Address [address] [facility] [place] [address] Phone [phone] Care Team Providers Care Loan Reviewer Name Role Phone Brent Smith MD Primary Care Provider + Reason for Visit * Reason Comments Anxiety Encounter Details Date Type Department Care Team (Late st Contact Info) Description 04/02/2024 10:00 AM EDT Telemedicine Psychiatry, [facility] [address] [place] [address] Kirit Casas CRNP [address] [place] [address] Major depressive disorder, recurrent severe without psychotic [...] 90 Tablet 3 04/01/2023 Active Nystatin-Triamcinolo ne 881153-6.1 UNIT/GM-% External Ointment (Mycolog)Indications :Dermatitis Apply topically to affected area 3 times a day. Apply to affected area 15 g 1 04/18/2023 Active Furosemide 20 MG Oral Tablet (Lasix)Indications:H TN, goal below 140/90,Coronary artery disease involving [place] heart without angina pectoris, unspecified vessel or [...] MEALS 180 Tablet 3 08/29/2023 Active Pen [place] 32G X 4 MMIndications:Type 2 diabetes mellitus [...] DINNER 90 Tablet 1 02/01/2024 Active Tiotropium Odell-Olodaterol 2.5-2.5 MCG/ACT Inhalation Aerosol Solution (Stiolto Respimat)Indications [...] stenosis. Had C5-6 b/l NATAN 03/10 colon @[facility]--WNL angie 10y 03/07 MRI lumbar [...] (coronary artery disease) 07/07/2012 Overview: STENT 2007 [facility] [place] 2004 HTN, goal below 140/90 04/10/2012 Overview: Per HTN Protocol #27. ADVANCE DIRECTIVE INFORMATION 03/19/2010 Overview: Information offered-patient declined. Type 2 diabetes mellitus wit h hemoglobin A1c goal of less than 8.0% 08/06/2009 Overview: Per Lipid Taxonomy. 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 Saw pulm. FAMILY HX-GI MALIGNANCY 02/09/2005 documented as of this encounter (statuses as of 04/02/2024) Resolved Problems Problem Noted Date Diagnosed Date Resolved Date Coronary artery disease invo lving [place] coronary artery of [place] heart with unstable angina pectoris 09/05/2019 08/06/2021 [...] myocardial infarction 03/13/2009 Overview: Modified by Acute [place] Protocol #5. Major depressive disorder, r ecurrent episode, moderate 06/13/2013 documented as of this encounter (statuses as of 04/02/2024) Immunizations Name Administration Dates Next Due COVID-19 mRNA, LNP-s, No Pre serve, 2-Dose Series (Moderna) 10/27/2020,09/29/2020 COVID-19, LNP-s, No Preserve , Klaus-sucrose, Ages 12+ (Pfizer) 03/17/2022 COVID-19, MRNA-LNP, 23-24, P F, 30 MCG/0.3 mL, 12 YRS AND ABOVE, IM ([facility]) 06/07/2023 COVID-19, mRNA, LNP-s, PF, B ooster, [...] VISIT NOTE Jas Tavares [address] [place] [address] 04/02/2024 Shelly Macdonald Patient location: HOME. I was not in a hospital or clinic location. After connecting through telephone, patient was verified with two unique identifiers. Patient (or authorized legal healthcare sales representative) was then informed that this was a Telemedicine visit and being conducted confidentially over secure lines. Methods to assure confidentiality were taken. Patient acknowledged consent and understanding of privacy and security of the Telemedicine visit. The patient agreed to participate. Clinical Tools - HILLARY-7 | PHQ-9 | AIMS | Carlos Vu Safety Plan :[id number]} Risk Assessment: Completed and No acute safety [...] with psychiatry or therapy since moving to [facility] 2020. Lives in home with . Retired [...] medications/tests, documenting clinical information. Kirit Casas, MSN, PUBLIC HEALTH TECHNICIAN, PMHNP- Nurse Practitioner - Outpatient Psychiatry [facility] [place] 04/02/2024 Crisis Planning: Shelly Macdonald [...] 05/10/2024 8:20 AM EDT Office Visit Hepatology, [facility] [address] [place] [address] Lali Chowdhury DO [address] [place] [address] 05/10/2024 9:20 AM EDT Office Visit Family Practice [facility] [address] [place] [address] Brent Smith MD [address] [place] [address] 05/28/2024 10:30 AM EDT Telemedicine Psychiatry, [facility] [address] [place] [address] Kirit Casas CRNP [address] [place] [address] 05/29/2024 10:30 AM EDT Office Visit Pharmacy, [facility] [address] [place] [address] C[facility]ric [facility] [address] [place] [address] 06/28/2024 9:30 AM EST Office Visit Cardiology, [facility] [address] [place] [address] Markell Brooks PA-C [address] [place] [address] 08/28/2024 9:00 AM EST Office Visit Rheumatology [facility] [address] [place] [address] Matthew Mari MD [address] [place] [address] 09/17/2024 11:30 AM EST Office Visit Hematology/Oncology [facility] [address] [place] [address] Angela Renteria CRNP [address] [facility] [place] [phone] Health Maintenance Due Date Last Done Comments [...] Additional history exists CKD PHOS USE SMARTSET 91795 08/05/202407/22, 08/09/2022, 08/06/2021, Additional history exists Diabetic Foot Exam 08/05/2024 08/05/2023, 1 09/18/2021, 09/04/2021, Additional history exists O2 ASSESSMENT COMPLETED IN PAST YEAR FOR COPD 11/30/2024 12/01/2023 B-12 12/14/2024 12/15/2023, 05/22, 11/12/2022, Additional history exists CKD HGB USE SMARTSET 24184 03/12/202503/12, 03/12/2024, 02/14/2024, Additional history exists Adult [...] on File Type Date Recorded Patient Supervisor Paper Coating 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 Care Teams Loan Reviewer Relationship Specialty Start Date End Date Brent Smith MD [address] [facility] [place] [address] PCP - General Family Medicine 04/20/23 documented as of this encounter
--- OUTSIDE RECORDS SUMMARY | 2024-08-09 14:44 | External Medical Summary | Summary of Care ---
Author Name Unknown Organization [facility] Address [address] [facility] [place] [address] Phone [phone] Care Team Providers Care Network Mgr Name Role Phone Brent Smith MD Primary Care Provider + Reason for Visit * Reason Onset Date Comments Medication Question 03/27/2024 Encounter Details Date Type Department Care Team (Late st Contact Info) Description 03/27/2024 Telephone Pharmacy, [facility] [address] [facility] [place] [address] Liana Breaux, [facility] [address] [facility] [place] [address] Medication Question Allergies Active [...] as of this encounter (statuses as of 04/03/2024) Medications Medication Sig Dispensed Refills Start Date [...] 90 Tablet 3 04/01/2023 Active Nystatin-Triamcinolo ne 139005-8.1 UNIT/GM-% External Ointment (Mycolog)Indications :Dermatitis Apply topically to affected area 3 times a day. Apply to affected area 15 g 1 04/18/2023 Active Furosemide 20 MG Oral Tablet (Lasix)Indications:H TN, goal below 140/90,Coronary artery disease involving northern [place]aho heart without angina pectoris, unspecified vessel or [...] MEALS 180 Tablet 3 08/29/2023 Active Pen [place] 32G X 4 MMIndications:Type 2 diabetes mellitus with hemoglobin A1c goal of less than 8.0% (HCC) Use as directed. To administer insulin. 100 Each 3 08/29/2023 Active Pioglitazone HCl 30 MG Oral Tablet (Actos) Take 1 Tablet by mouth in the morning. 90 Tablet 3 08/29/2023 Active FreeStyle LancetsIndications:T ype 2 diabetes mellitus with hemoglobin A1c goal of less than 8.0% ([facility]) Use to test blood sugar twice daily or as directed E11.9 180 Each 09/08/2023 Active FreeStyle Lite Test In Vitro Strip (Glucose Blood)Indications:Ty pe 2 diabetes mellitus with hemoglobin A1c goal of less than 8.0% ([facility]) Use to test blood [...] WITH DINNER 90 Tablet 02/01/2024 Active Tiotropium Oxford-Olodaterol 2.5-2.5 MCG/ACT Inhalation Aerosol Solution (Stiolto Respimat)Indications :Centrilobular emphysema (HCC) Inhale 2 Puffs by mouth in the morning. 12 g 3 01/31/2024 Active FLUoxetine HCl 40 MG Oral Capsule (PROzac) Take 1 Capsule by mouth in the morning. 90 Capsule 1 03/07/2024 Active documented as of this encounter (statuses as of 04/03/2024) Active Problems Problem Noted Date Diagnosed Date [...] Dr Kaushal Giang. 11/19/20 MRI C-Spine in [place]. DDD most C5-6. Mod central canal and [...] artery disease) 07/07/2012 Overview: STENT 2007 [facility], [place] 2004 HTN, goal below 140/90 04/10/2012 Overview: Per HTN Protocol #27. ADVANCE DIRECTIVE INFORMATION 03/19/2010 Overview: Information offered-patient declined. Type 2 diabetes mellitus wit h hemoglobin A1c goal of less than 8.0% 08/06/2009 Overview: Per Lipid Taxonomy. ICD-10 update of inactive term Old myocardial infarct 03/13/2009 Overview: INFEROLATERAL [place] 2004 Chronic rhinitis 10/07/2008 Gastroparesis 04/27/2007 Sarcoidosis 05/12/2005 Overview: DX 2004 EGD showing nonnecrotizing granuloma stomach + wt loss. Saw pulm. FAMILY HX-GI MALIGNANCY 02/09/2005 documented as of this encounter (statuses as of 04/03/2024) Resolved Problems Problem Noted Date Diagnosed Date Resolved Date Coronary artery disease invo lving northern [place] coronary artery of northern [place] heart with unstable angina pectoris 09/05/2019 08/06/2021 [...] myocardial infarction 03/13/2009 Overview: Modified by Acute [place] Protocol #5. Major depressive disorder, r ecurrent episode, moderate 06/13/2013 documented as of this encounter (statuses as of 04/03/2024) Immunizations Name Administration Dates Next Due COVID-19 [...] encounter Miscellaneous Notes * Telephone Encounter - Liana Breaux, [facility] - 03/27/2024 12:23 PM EDT Beto, Patient seen in [facility] today was several concerns: She is concerned [...] lot! Thank you! Liana Breaux, Pharm D, [facility] Clinical [facility]ist 03/27/2024, 12:26 PM documented in this encounter Plan of Treatment Upcoming Encounters Date Type Department Care Team (Late st Contact Info) Description 05/10/2024 8:20 AM EDT Office Visit Hepatology, [facility] [address] [place] [address] Lali Chowdhury DO [address] [place] [address] 05/10/2024 9:20 AM EDT Office Visit Family Practice [facility] [address] [place] [address] Brent Smith MD [address] [place] [address] 05/28/2024 10:30 AM EDT Telemedicine Psychiatry, [facility] [address] [place] [address] Pedro Luis Casas CRNP [address] [place] [address] 05/29/2024 10:30 AM EDT Office Visit Pharmacy, [facility] [address] [place] [address] [facility] [address] [place] [address] 06/28/2024 9:30 AM EST Office Visit Cardiology, [facility] [address] [place] [address] Markell Brooks PAEddyC [address] [place] [address] 08/28/2024 9:00 AM EST Office Visit Rheumatology [facility] [address] [place] [address] Matthew Mari MD [address] [place], [place] [address] 09/17/2024 11:30 AM EST Office Visit Hematology/Oncology [facility] [address] [facility] [place], [place] [address] Angela Renteria CRNP [address] [facility] [place] [address] Health Maintenance Due Date Last Done [...] Additional history exists CKD PHOS USE SMARTSET 33128 08/05/202407/22, 08/09/2022, 08/06/2021, Additional history exists Diabetic Foot Exam 08/05/2024 08/05/2023, 1 09/18/2021, 09/04/2021, Additional history exists O2 ASSESSMENT COMPLETED IN PAST YEAR FOR COPD 11/30/2024 12/01/2023 B-12 12/14/2024 12/15/2023, 05/22, 11/12/2022, Additional history exists CKD HGB USE SMARTSET 35683 03/12/202503/12, 03/12/2024, 02/14/2024, Additional history exists Adult [...] Documents on File Type Date Recorded Patient Coding Assistant 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 Care Teams Network Mgr Relationship Specialty Start Date End Date Brent Smith MD [address] [place] [address] PCP - General Family Medicine 04/20/23 documented as of this encounter
--- OUTSIDE RECORDS SUMMARY | 2024-08-09 14:44 | External Medical Summary | Summary of Care ---
Author Name Unknown Organization [facility] Address [address] [address] Phone [phone] Care Team Providers Care Dough Cutter Name Role Phone Brent Smith MD Primary Care Provider + Reason for Visit * Reason Onset Date Comments Dosage Adjustment In Person (Anticoag Clinic) Adult Annual Wellness Visit, Subsequent Visit Adult Annual Wellness Visit, Subsequent Visit Encounter Details Date Type Department Care Team (Late st Contact Info) Description 03/27/2024 10:30 AM EDT Pharmacy Pharmacy, [facility] [address] [facility] [place] [address] [facility] [address] [place] [address] Type 2 diabetes mellitus with hemoglobin A1c goal of less than 8.0% ([facility])*; Vitamin D deficiency, unspecified; Routine general medical [...] 90 Tablet 3 04/01/2023 Active Nystatin-Triamcinolo ne 321276-0.1 UNIT/GM-% External Ointment (Mycolog)Indications :Dermatitis Apply topically to affected area 3 times a day. Apply to affected area 15 g 1 04/18/2023 Active Furosemide 20 MG Oral Tablet (Lasix)Indications:H TN, goal below 140/90,Coronary artery disease involving ute [...] MEALS 180 Tablet 3 08/29/2023 Active Pen [place] 32G X 4 MMIndications:Type 2 diabetes mellitus with hemoglobin A1c goal of less than 8.0% (HCC) Use as directed. To administer insulin. 100 Each 3 08/29/2023 Active Pioglitazone HCl 30 MG Oral Tablet (Actos) Take 1 Tablet by mouth in the morning. 90 Tablet 3 08/29/2023 Active FreeStyle LancetsIndications:T ype 2 diabetes mellitus with hemoglobin A1c goal of less than 8.0% ([facility]) Use to test blood sugar twice daily or as directed E11.9 180 Each 09/08/2023 Active FreeStyle Lite Test In Vitro Strip (Glucose Blood)Indications:Ty pe 2 diabetes mellitus with hemoglobin A1c goal of less than 8.0% ([facility]) Use to test blood sugar twice daily [...] DINNER 90 Tablet 1 02/01/2024 Active Tiotropium Levels-Olodaterol 2.5-2.5 MCG/ACT Inhalation Aerosol Solution (Stiolto Respimat)Indications [...] stenosis. Had C5-6 b/l NATAN 03/10 colon [facility]--WNL angie 10y 03/07 MRI lumbar some [...] 07/07/2012 Overview: STENT 2008 [facility], [place] 2004 HTN, goal below 140/90 04/10/2012 Overview: Per HTN Protocol #27. ADVANCE DIRECTIVE INFORMATION 03/19/2010 Overview: Information offered-patient declined. Type 2 diabetes mellitus wit h hemoglobin A1c goal of less than 8.0% 08/06/2009 Overview: Per Lipid Taxonomy. ICD-10 update of inactive term Old myocardial infarct 03/13/2009 Overview: INFEROLATERAL [place] 2004 Chronic rhinitis 10/07/2008 Gastroparesis 04/27/2007 Sarcoidosis [...] this encounter Patient Instructions * Patient Instructions* Liana Breaux RPh - 03/27/2024 11:20 AM EDT Hi Ms. [...] TABLET BEFORE BEDTIME 90 Tablet 3 Nystatin-Triamcinolone 853282-6.1 UNIT/GM-% External Ointment (Mycolog) Apply topically to [...] AND EVENING MEALS 180 Tablet 3 Pen [place] 32G X 4 MM Use as directed. [...] DAILY WITH DINNER 90 Tablet 1 Tiotropium Levels-Olodaterol 2.5-2.5 MCG/ACT Inhalation Aerosol Solution (Stiolto Respimat) [...] your insurance company to determine what's covered. [employer] is a great tool that helps you review your medical record online, including test results, doctor notes and your health summary. You can also schedule appointments with me and other members of your care team, request prescription refills and ask for advice related to your medical conditions at [email or web address]. documented in this encounter Progress Notes * [...] ASCVD (arteriosclerotic cardiovascular disease) 07/07/2012 STENT 2007 [place], [place] 2003 Autoimmune hepatitis (HCC) 05/06/2023 CAD (coronary artery disease) 07/07/2012 STENT 2007 [place], [place] 2003 Cervical disc disorder 04/23/2014 Chronic [...] 09/23/2015 Old myocardial infarct 03/13/2009 INFEROLATERAL [place] 2004 LUISA (obstructive sleep apnea) 10/13/2017 S/P cardiac cath 10/17/2018 Sarcoidosis 05/12/2005 DX 2005 EGD showing nonnecrotizing granuloma stomach + wt loss. Saw pulm. Past Surgical History: Procedure Laterality Date CARDIAC CATH-CARDIOLOGY ONLY 11/06/2007 STENTED - taxus express 2 CARDIAC CATH-CARDIOLOGY ONLY 10/17/2018 2 stents LAD @[facility]. Dr Morales CARDIAC CATH-CARDIOLOGY ONLY 01/29/2019 drug eluiting stent LAD at [facility] CARPAL TUNNEL SURGERY Bilateral Carpal Tunnel repair COLONOSCOPY THRU STOMA, W/BIOPSY 06/15/2007 hyperplastic, repeat in 10 years COLONOSCOPY, DIAGNOSTIC (RECTUM) 05/15/2012 COLONOSCOPY FLEXIBLE PROXIMAL DIAGNOSTIC performed by Robina Lozoya DO at ENDOSCOPY [facility],HYPERPLASTIC POLYPS REPEAT COLONOSCOPY IN 5 YEARS COLONOSCOPY, DIAGNOSTIC (RECTUM) 07/12/2016 tortuous colon, diverticulosis, repeat 5 yrs/[facility] COLONOSCOPY, DIAGNOSTIC (RECTUM) 12/01/2023 COLONOSCOPY FLEXIBLE PROXIMAL DIAGNOSTIC performed by Zenobia Costa MD at ENDOSCOPY [facility] EGD, FLEXIBLE, DIAGNOSTIC 07/12/2016 normal bx/[facility] EGD, FLEXIBLE, DIAGNOSTIC 11/18/2022 biopsies normal/ESOPHAGOGASTRODUODENOSCOPY (EGD), FLEXIBLE, TRANSORAL, DIAGNOSTIC performed by MD Marcial at ENDOSCOPY [facility] EGD, FLEXIBLE, DIAGNOSTIC 12/01/2023 ESOPHAGOGASTRODUODENOSCOPY (EGD), FLEXIBLE, TRANSORAL, DIAGNOSTIC performed by Zenobia Costa MD at ENDOSCOPY [facility] EGD, W/ENDOSCOPIC US 11/29/2012 UPPER GI ENDOSCOPY ENDOSCOPIC ULTRASOUND performed by Chikis Cole DO at [facility]: benign polyp to stomach EGD, W/ENDOSCOPIC US 01/25/2023 mild liver fibrosis, GB sludge / ESOPHAGOGASTRODUODENOSCOPY (EGD), FLEXIBLE, TRANSORAL, ENDOSCOPIC ULTRASOUND performed by Miguel Ruff MD at ENDOSCOPY [facility] INFORMATION Laparoscopy X3 KNEE ARTHROSCOPY, DIAGNOSTIC Right Knee Scope,Diagnostic MISCELLANEOUS ORDER ([facility] ONLY) 05/19/2016 NATAN L5-s1 Dr Leija [facility] OTHER Bilateral 02/09/2021 b/l C5-6 NATAN at [facility] in [facility] REMOVE TONSILS & ADENOIDS, UNDER 12 SMALL BOWEL ENDOSCOPY W/BX 03/2007 TENDON SHEATH INCISION, FINGER Right 11/28/2017 TRIGGER FINGER RELEASE performed by Marcelo Arnold DO at [facility] TENDON SHEATH INCISION, FINGER Left 09/21/2023 LEFT TRIGGER FINGER RELEASE performed by Bill Reilly MD at OR [facility] TOTAL HYSTERECTOMY VALARIE (Total Abdominal Hysterectomy) [...] MCG/0.3 mL, 12 YRS AND ABOVE, IM ([facility]) 06/07/2023 COVID-19, mRNA, LNP-s, PF, Booster, 100mcg/0.5mg (Moderna) 07/03/2021 Covid-19, Mrna, Lnp-s, Pf, Bivalent, 30 Mcg, IM, 12 yrs and above (Leixir) 08/18/2022 H1N1 2009 Influenza, IM 09/05/2009 Hepatitis [...] TABLET BEFORE BEDTIME 90 Tablet 3 Nystatin-Triamcinolone 412492-8.1 UNIT/GM-% External Ointment (Mycolog) Apply topically to [...] AND EVENING MEALS 180 Tablet 3 Pen [place] 32G X 4 MM Use as directed. [...] DAILY WITH DINNER 90 Tablet 1 Tiotropium Levels-Olodaterol 2.5-2.5 MCG/ACT Inhalation Aerosol Solution (Stiolto Respimat) [...] group B, by GOLD 2017 classification (HCC) Medication Compliance: Patient is able to obtain [...] Yes. Pain Scale: 4 out of 10; Location: back/headaches, small joint pain involving most/many of the small joints-hands/feet/knees/elbows, When: constant, Duration: constant, Aggravating Factors: n/a, Relieved by: magen armendariz Sleep Screening Tool 'STOP': Do you snore? [...] sedatives or narcotics Older than age 70 Qys-Uc-scd-Go Test: Time began at 10:33. Patient stood from sitting position and walked approximately 10 feet, returnedand sat down. Total time for xyn-ir-qgv-go test was 20 seconds. Xeg-Um-djm-Go Test completed? Yes Gender Specific Preventative Plan: Health Maintenance Topic Date Due DISCUSS TOBACCO CESSATION (REFER TO SMARTSET #3291) 05/10/2018 Depression Monitoring 09/04/2022 Adult Wellness Visit 10/20/2022 COVID-19 Vaccine ( season) 2023 Mammogram 12/10/2023 Influenza Vaccine (FLU shot) (1) 04/22/2024 Diabetic Eye Exam 06/30/2024 HbA1c 07/28/2024 GFR 07/28/2024 Albumin/Creatinine Ratio 08/05/2024 Diabetic Foot Exam 08/05/2024 CKD PHOS USE SMARTSET 36440 08/05/2024 O2 ASSESSMENT COMPLETED IN PAST YEAR FOR COPD 11/30/2024 B-12 12/14/2024 CKD HGB USE SMARTSET 23344 03/12/2025 Colorectal Cancer Screening 11/30/2028 DXA Scan [...] goal of less than 8.0% ([facility]) (Primary) - 25-HYDROXY VITAMIN D; Future; Expected [...] Description 04/02/2024 10:00 AM EDT Telemedicine Psychiatry, [address] [place] [address] Pedro Luis Casas CRNP [address] [place] [address] 05/10/2024 8:20 AM EDT Office Visit Hepatology, [facility] [address] [place] [address] Lali Chowdhury DO [address] [place] [address] 05/10/2024 9:20 AM EDT Office Visit Family Practice [facility] [address] [place] [address] Brent Smith MD [address] [facility] [place] [address] 05/29/2024 10:30 AM EDT Office Visit Pharmacy, [facility] [address] [facility] [place] [address] [facility] [address] [place] [address] 06/28/2024 9:30 AM EST Office Visit Cardiology, [facility] [address] [facility] [place] [address] Markell Brooks PA-C [address] [place], [place] [address] 08/28/2024 9:00 AM EST Office Visit Rheumatology [place] [id number] [facility] [place], [place] [address] Matthew Mari MD [facility] [place], [place] [address] 09/17/2024 11:30 AM EST Office Visit Hematology/Oncology [facility] [place] [address] [facility] [place] [phone] Angela Renteria CRNP [address] [place] [address] Pending Results Name Type Priority Associated Diagnoses Date /Time 25-HYDROXY VITAMIN D Lab Routine Type 2 diabetes mellitus with hemoglobin A1c goal of less than 8.0% (HCC) Vitamin D deficiency, unspecified 03/27/2024 10:50 AM EDT Scheduled Orders Name Type Priority Associated Diagnoses Orde r Schedule 25-HYDROXY VITAMIN D Lab Routine Type 2 diabetes mellitus with hemoglobin A1c goal of less than 8.0% (HCC) Vitamin D deficiency, unspecified Expected: 03/27/2024, Expires: 03/27/2025 Health Maintenance Due Date Last Done Comments [...] Additional history exists CKD PHOS USE SMARTSET 03766 08/05/202407/22, 08/09/2022, 08/06/2021, Additional history exists Diabetic Foot Exam 08/05/2024 08/05/2023, 09/18/2021, 09/04/2021, Additional history exists O2 ASSESSMENT COMPLETED IN PAST YEAR FOR COPD 11/30/2024 12/01/2023 B-12 12/14/2024 12/15/2023, 05/22, 11/12/2022, Additional history exists CKD HGB USE SMARTSET 17675 03/12/202503/12, 03/12/2024, 02/14/2024, Additional history exists Adult [...] goal of less than 8.0% ([facility])- Primary Vitamin D deficiency, unspecified Routine general medical examination at a health care facility documented in this encounter Advance Directives Documents on File Type Date Recorded Patient Nursing Teacher 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 Care Teams Dough Cutter Relationship Specialty Start Date End Date Brent Smith MD [address] [place] [address] PCP - General Family Medicine 04/20/23 documented as of this encounter
--- OUTSIDE RECORDS SUMMARY | 2024-08-09 14:45 | External Medical Summary ---
Author Name Unknown Address Unknown Organization K01:[facility] - [address] [place] [address] Laboratory Report Ordering Provider Test Date Status KIRSTEN GAINES 03/12/2024 07:58:58 Final Observation Date Value Abnormality Reference (Units ) Status Ferritin 03/12/2024 07:58:58 140 13-150 (ng /mL) Final Postmenopausal women have hi gher ferritin levels than pre-menopausal women. The above reference interval is based on pre-menopausal women. Performing Location [facility] - [address] [place] [address]
--- OUTSIDE RECORDS SUMMARY | 2024-08-09 14:45 | External Medical Summary | Summary of Care ---
Author Name Unknown Organization [facility] Address [address] [facility] [address] Phone [phone] Care Team Providers Care Registered Travel Nurse Name Role Phone Brent Smith MD Primary Care Provider + Reason for Visit * Reason Comments Outpatient Testing Encounter Details Date Type Department Care Team (Late st Contact Info) Description 03/12/2024 8:10 AM EDT Laboratory [facility] [place] [address] [place] [phone] [place], Lab Scenery [address] [place] [address] Iron deficiency anemia, unspecified iron deficiency anemia type Allergies Active Allergy Reactions Criticality Noted Date [...] as of this encounter (statuses as of 03/12/2024) Medications Medication Sig Dispensed Refills Start Date [...] 90 Tablet 3 04/01/2023 Active Nystatin-Triamcinolo ne 323706-8.1 UNIT/GM-% External Ointment (Mycolog)Indications :Dermatitis Apply topically to affected area 3 times a day. Apply to affected area 15 g 1 04/18/2023 Active Furosemide 20 MG Oral Tablet (Lasix)Indications:H TN, goal below 140/90,Coronary artery disease involving port lions heart without angina pectoris, unspecified vessel or [...] EVENING MEALS 180 Tablet 3 08/29/2023 Active Insulin Glargine Solostar 100 UNIT/ML Subcutaneous Solution Pen-injector (Lantus SoloStar)Indications :Type 2 diabetes mellitus with hemoglobin A1c goal of less than 8.0% (HCC) Inject 10 Units under the skin every evening. 15 mL 1 08/29/2023 Active Pen [place] 32G X 4 MMIndications:Type 2 diabetes mellitus with hemoglobin A1c goal of less than 8.0% ([facility]) Use as directed. To administer insulin. 100 Each 3 08/29/2023 Active Pioglitazone HCl 30 MG Oral Tablet (Actos) Take 1 Tablet by mouth in the morning. 90 Tablet 08/29/2023 Active FreeStyle LancetsIndications:T ype 2 diabetes mellitus with hemoglobin A1c goal of less than 8.0% ([facility]) Use to test blood sugar twice daily or as directed E11.9 180 Each 09/08/2023 Active FreeStyle Lite Test In Vitro Strip (Glucose Blood)Indications:Ty pe 2 diabetes mellitus with hemoglobin A1c goal of less than 8.0% ([facility]) Use to test blood sugar twice daily [...] Shortness of Breath or Wheezing. 18 g 09/27/2023 Active Metoprolol Succinate ER 100 MG [...] FOR NECK AND HEAD PAIN 270 Tablet 12/29/2023 Active Ondansetron HCl 4 MG Oral [...] 90 Tablet 1 02/01/2024 Active Tiotropium [place]-Olodaterol 2.5-2.5 MCG/ACT Inhalation Aerosol Solution (Stiolto Respimat)Indications :Centrilobular emphysema (HCC) Inhale 2 Puffs by mouth in the morning. 12 g 3 01/31/2024 Active FLUoxetine HCl 40 MG Oral Capsule (PROzac) Take 1 Capsule by mouth in the morning. 90 Capsule 1 03/07/2024 Active documented as of this encounter (statuses as of 03/12/2024) Active Problems Problem Noted Date Diagnosed Date [...] (coronary artery disease) 07/07/2012 Overview: STENT 2007 [facility], [place] 2004 HTN, goal below 140/90 04/10/2012 [...] as of this encounter (statuses as of 03/12/2024) Resolved Problems Problem Noted Date Diagnosed Date Resolved Date Coronary artery disease invo lving port lions coronary artery of port lions heart with unstable angina pectoris 09/05/2019 08/06/2021 [...] as of this encounter (statuses as of 03/12/2024) Immunizations Name Administration Dates Next Due COVID-19 mRNA, LNP-s, No Pre serve, 2-Dose Series (Moderna) 10/27/2020,09/29/2020 COVID-19, LNP-s, No Preserve , Klaus-sucrose, Ages 12+ (Pfizer) 03/17/2022 COVID-19, MRNA-LNP, 23-24, P F, 30 MCG/0.3 mL, 12 YRS AND ABOVE, IM ([facility] 06/07/2023 COVID-19, mRNA, LNP-s, PF, B ooster, [...] Care Team (Late st Contact Info) Description 03/15/2024 11:00 AM EDT Office Visit Hematology/Oncology [facility] [place] [address] [place] [phone] Angela Renteria CRNP [address] [facility] [place] [address] 03/27/2024 10:00 AM EDT [facility] [address] [facility] [place] [address] [facility] [address] [place] [address] 03/27/2024 10:30 AM EDT Pharmacy Pharmacy, [facility] [address] [place], [place] [address] [facility] [address] [place] [address] 04/02/2024 10:00 AM EDT Telemedicine Psychiatry, [facility] [address] [place] [address] Pedro Luis Casas CRNP [address] [place] [address] 05/10/2024 8:20 AM EDT Office Visit Hepatology, [facility] [address] [place] [address] Lali Chowdhury DO [address] [place] [address] 05/10/2024 9:20 AM EDT Office Visit Family Practice [facility] [address] [place] [address] Brent Smith MD [address] [place] [address] 06/28/2024 9:30 AM EST Office Visit Cardiology, [facility] [address] [place] [address] Markell Brooks PA-C [address] [place] [address] 08/28/2024 9:00 AM EST Office Visit Rheumatology [address] [place] [address] Matthew Mari MD [address] [place] [address] [place] [address] Pending Results Name Type Priority Associated Diagnoses Date /Time FERRITIN Lab STAT Iron deficiency anemia, unspecified iron deficiency anemia type 03/12/2024 7:58 AM EDT IRON SCREEN, INCLUDING TIBC Lab STAT Iron deficiency anemia, unspecified iron deficiency anemia type 03/12/2024 7:58 AM EDT Health Maintenance Due Date Last Done Comments Cologuard 1995 Sigmoidoscopy 1995 Fecal Occult Blood Test 01/20/2013 01/21/20 12, 10/07/2000, 10/05/1996 DISCUSS TOBACCO CESSATION (REFER TO SMARTSET #3291) 05/10/2018 05/10/2017 (Discussed) Depression Monitoring 09/04/2022 09/04/2021 COVID-19 Vaccine ( season) 2023 06/07/2023, 08/18/2022, 03/17/2022, Additional history exists Mammogram 12/10/2023 12/09/2022, 11/21, 08/20/2021, Additional history exists *CXR OR CT FOR COPD EVER 03/04/2024 Influenza Vaccine (FLU shot) (#1) 2024 05/06/2023, 05/13/2022, 06/16/2021, Additional history exists Diabetic Eye Exam 06/30/2024 06/30/2023, (Done elsewhere), 06/30/2023, Additional history exists GFR 07/28/2024 01/27/2024, 03/0 12/2023, 08/05/2023, Additional history exists HbA1c 07/28/2024 01/27/2024, 03/0 12/2023, 08/05/2023, Additional history exists Albumin/Creatinine Ratio 08/05/2024 023, 05/06/2023, 07/10/2022, Additional history exists CKD PHOS USE SMARTSET 18141 08/05/202407/22, 08/09/2022, 08/06/2021, Additional history exists Diabetic Foot Exam 08/05/2024 08/05/2023, 1 09/18/2021, 09/04/2021, Additional history exists O2 ASSESSMENT COMPLETED IN PAST YEAR FOR COPD 11/30/2024 12/01/2023 B-12 12/14/2024 12/15/2023, 05/22, 11/12/2022, Additional history exists CKD HGB USE SMARTSET 85841 03/12/202503/12, 03/12/2024, 02/14/2024, Additional history exists Colonoscopy [...] Procedure Name Priority Date/Time Associated Diagnosis Comments DIFFERENTIAL, AUTOMATED STAT 03/12/2024 7:58 AM EDT Iron deficiency anemia, unspecified iron deficiency anemia type CBC STAT 03/12/2024 7:58 AM EDT Iron deficiency anemia, unspecified iron deficiency anemia type CBC STAT 03/12/2024 7:58 AM EDT Iron deficiency anemia, unspecified iron deficiency anemia type documented in this encounter Results * DIFFERENTIAL, AUTOMATED (03/12/2024 7:58 AM EDT) WBC 7.74 4.00 - 10.80 K/uL 03/12/2024 8:04 AM EDT [facility] 56-02 Neutrophils % 64.8 40.0 - 75.0 % 03/12/2024 8:04 AM EDT [facility] [place] 56-02 Lymphocytes % 24.8 18.0 - 42.0 % 03/12/2024 8:04 AM EDT [facility] [place] 56-02 Monocytes % 9.7 1.0 - 11.0 % 03/12/2024 8:04 AM EDT [facility] [place] 56-02 Eosinophils % 0.1 0.0 - 6.0 % 03/12/2024 8:04 AM EDT [facility] [place] 56-02 Basophils % 0.6 0.0 - 2.0 % 03/12/2024 8:04 AM EDT [facility] [place] 56-02 Absolute Neutrophils 5.01 1.80 - 7.70 K/uL 03/12/2024 8:04 AM EDT [facility] [place] 56-02 Absolute Lymphocytes 1.92 1.00 - 4.80 K/ul 03/12/2024 8:04 AM EDT [facility] [place] 56-02 Absolute Monocytes 0.75 0.00 - 1.10 K/uL 03/12/2024 8:04 AM EDT [facility] [place] 56-02 Absolute Eosinophils 0.01 0.00 - 0.70 K/uL 03/12/2024 8:04 AM EDT [facility] [place] 56-02 Absolute Basophils 0.05 0.00 - 0.20 K/uL 03/12/2024 8:04 AM EDT [facility] [place] 56-02 Blood Venous blood specimen / Unknown Venipuncture / Unknown 03/12/2024 7:58 AM EDT 03/12/2024 7:58 AM EDT Angela ZAMBRANO LAB BLOOD ORDER TRUDI [facility] [address] [place] [address] * CBC (03/12/2024 7:58 AM EDT) WBC 7.74 4.00 - 10.80 K/uL 03/12/2024 8:04 AM EDT [facility] 56- RBC 4.13 3.85 - 5.15 M/uL 03/12/2024 8:04 AM EDT [facility] 56 HGB 12.5 12.0 - 15.3 g/dL 03/12/2024 8:04 AM EDT [facility] 56 HCT 38.1 36.0 - 45.2 % 03/12/2024 8:04 AM EDT [facility] 56 MCV 92.3 81.5 - 97.5 fL 03/12/2024 8:04 AM EDT [facility] 56 MCH 30.3 27.0 - 34.0 pg 03/12/2024 8:04 AM EDT [facility] 56 MCHC 32.8 32.0 - 36.0 g/dL 03/12/2024 8:04 AM EDT [facility] 56 RDW 18.9 11.5 - 15.5 % 03/12/2024 8:04 AM EDT [facility] 56 PLT 165 140 - 400 K/uL 03/12/2024 8:04 AM EDT [facility] 56 MPV 10.1 6.6 - 11.1 fL 03/12/2024 8:04 AM EDT [facility] 56 Blood Venous blood specimen / Unknown Venipuncture / Unknown 03/12/2024 7:58 AM EDT 03/12/2024 7:58 AM EDT Angela ZAMBRANO LAB BLOOD ORDER TRUDI [facility] [address] [place] [address] documented in this encounter Visit Diagnoses Diagnosis Iron deficiency anemia, unspecified iron deficiency anemia type documented in this encounter Advance Directives Documents on File Type Date Recorded 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 Care Teams Registered Travel Nurse Relationship Specialty Start Date End Date Brent Smith MD [address] [place] [address] PCP - General Family Medicine 04/20/23 documented as of this encounter
--- OUTSIDE RECORDS SUMMARY | 2024-08-09 14:45 | External Medical Summary | Summary of Care ---
Author Name Unknown Organization [facility] Address [address] [facility] [place] [address] Phone [phone] Care Team Providers Care Machine Assembler Name Role Phone Brent Smith MD Primary Care Provider + Reason for Visit * Reason Comments Outpatient Testing Encounter Details Date Type Department Care Team (Late st Contact Info) Description 03/27/2024 11:20 AM EDT Laboratory Laboratory, [facility] [address] [facility] [place] [phone] [facility] [address] [place] [address] Type 2 diabetes mellitus with hemoglobin A1c goal of less than 8.0% ([facility]); Vitamin D deficiency, unspecified Allergies Active Allergy Reactions Criticality Noted Date [...] 90 Tablet 3 04/01/2023 Active Nystatin-Triamcinol one 610174-5.1 UNIT/GM-% External Ointment (Mycolog)Indication s:Dermatitis Apply topically to affected area 3 times a day. Apply to affected area 15 g 1 04/18/2023 Active Furosemide 20 MG Oral Tablet (Lasix)Indications: HTN, goal below 140/90,Coronary artery disease involving curyung heart without angina pectoris, unspecified vessel or [...] MEALS 180 Tablet 3 08/29/2023 Active Pen [place] 32G X 4 MMIndications:Type 2 diabetes [...] goal of less than 8.0% ([facility]) Use to test blood sugar twice daily or as directed E11.9 180 Each 3 09/08/2023 Active FreeStyle Lite Test In Vitro Strip (Glucose Blood)Indications:T ype 2 diabetes mellitus with hemoglobin A1c goal of less than 8.0% ([facility]) Use to test blood sugar twice [...] DINNER 90 Tablet 1 02/01/2024 Active Tiotropium [place]-Olodaterol 2.5-2.5 MCG/ACT Inhalation Aerosol Solution (Stiolto Respimat)Indication [...] 03/09 starting new therapist Stefania. with leukoencepholopathy 3/24 Colon WNL. Angie 10y? EGD WNL (dilated) 02/11 EUS/FNA done. 11/11 Upper endoscopy ok. 12/10 in [place]--upper/lower scope WNL--angie [address] Kaushal Giang. [...] (coronary artery disease) 07/07/2012 Overview: STENT 2007 [facility] [place] 2004 HTN, goal below 140/90 04/10/2012 Overview: Per HTN Protocol #27. ADVANCE DIRECTIVE INFORMATION 03/19/2010 Overview: Information offered-patient declined. Type 2 diabetes mellitus wit h hemoglobin A1c goal of less than 8.0% 08/06/2009 Overview: Per Lipid Taxonomy. 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 Saw pulm. FAMILY HX-GI MALIGNANCY 02/09/2005 documented as of this encounter (statuses as of 03/27/2024) Resolved Problems Problem Noted Date Diagnosed Date Resolved Date Coronary artery disease invo lving curyung coronary artery of curyung heart with unstable angina pectoris 09/05/2019 08/06/2021 [...] myocardial infarction 03/13/2009 Overview: Modified by Acute [place] Protocol #5. Major depressive disorder, r ecurrent [...] Description 04/02/2024 10:00 AM EDT Telemedicine Psychiatry, [facility] [address] [place] [address] Pedro Luis Casas CRNP [address] [place] [address] 05/10/2024 8:20 AM EDT Office Visit Hepatology, [facility] [address] [place] [address] Lali Chowdhury DO [address] [place] [address] 05/10/2024 9:20 AM EDT Office Visit Family Practice [facility] [address] [place] [address] Bretn Smith MD [address] [place] [address] 05/29/2024 10:30 AM EDT Office Visit Pharmacy, [facility] [place] [address] [facility] [address] [place] [address] 06/28/2024 9:30 AM EST Office Visit Cardiology, [facility] 132 [facility] [place] [address] Markell Brooks PA-C [facility] [place] [address] 08/28/2024 9:00 AM EST Office Visit Rheumatology [address] [place] [address] Matthew Mari MD [facility] [address] 09/17/2024 11:30 AM EST Office Visit Hematology/Oncology [facility] [place] [address] [facility] [place] [phone] Angela Renteria CRNP [address] [place] [address] [place] [address] Pending Results Name Type Priority Associated Diagnoses Date /Time 25-HYDROXY VITAMIN D Lab Routine Type 2 diabetes mellitus with hemoglobin A1c goal of less than 8.0% (HCC) Vitamin D deficiency, unspecified 03/27/2024 10:50 AM EDT Health Maintenance Due Date Last [...] Additional history exists CKD PHOS USE SMARTSET 68456 08/05/202407/22, 08/09/2022, 08/06/2021, Additional history exists Diabetic Foot Exam 08/05/2024 08/05/2023, 1 09/18/2021, 09/04/2021, Additional history exists O2 ASSESSMENT COMPLETED IN PAST YEAR FOR COPD 11/30/2024 12/01/2023 B-12 12/14/2024 12/15/2023, 05/22, 11/12/2022, Additional history exists CKD HGB USE SMARTSET 35504 03/12/202503/12, 03/12/2024, 02/14/2024, Additional history exists Colonoscopy [...] Documents on File Type Date Recorded Patient Picker / Packer 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 Care Teams Machine Assembler Relationship Specialty Start Date End Date Brent Smith MD [address] [place] [address] PCP - General Family Medicine 04/20/23 documented as of this encounter
--- OUTSIDE RECORDS SUMMARY | 2024-08-09 14:45 | External Medical Summary ---
Author Name Unknown Address Unknown Organization K09:[facility] [place] [address] Laboratory Report Ordering Provider Test Date Status KIRSTEN GAINES 03/12/2024 07:58:58 Final Observation Date Value Abnormality Reference (Units ) Status SYNC LEUKOCYTES IN BLOOD BY AUTOMATED COUNT 03/12/2024 07:58:58 7.74 4.00-10.80 (K/uL) Final Segs 03/12/2024 07:58:58 64.8 40.0-75.0 (%) Final Lymphs % 03/12/2024 07:58:58 24.8 18.0-42.0 (%) Final Monos 03/12/2024 07:58:58 9.7 1.0-11.0 (%) Final Eosinophils 03/12/2024 07:58:58 0.1 0.0-6.0 (%) Final Basos 03/12/2024 07:58:58 0.6 0.0-2.0 (%) Final Absolute Segs 03/12/2024 07:58:58 5.01 1.80-7.70 (K/uL) Final Lymphs, absolute 03/12/2024 07:58:58 1.92 1.00-4.80 (K/ul) Final Monos, Abs 03/12/2024 07:58:58 0.75 0.00-1.10 (K/uL) Final Eos, Abs 03/12/2024 07:58:58 0.01 0.00-0.70 (K/uL) Final Basos, Abs 03/12/2024 07:58:58 0.05 0.00-0.20 (K/uL) Final Performing Location [facility] [place] [address]
--- OUTSIDE RECORDS SUMMARY | 2024-08-09 14:45 | External Medical Summary ---
Author Name Unknown Address Unknown Organization K01:[facility] - [address] [place] [address] Laboratory Report Ordering Provider Test Date Status GILSON MINAYA 03/27/2024 10:50:36 Final Deficient: <20 ng/mL
Ins ufficient: 20-29 ng/mL
Recommended/Optimum:30-50 ng/mL

Vitamin D intoxication is rare. If suspicious of Vitamin D toxicity, evaluation of serum Calcium and PTH is recommended. Observation Date Value Abnormality Reference (Units ) Status 25-OH Vitamin D total 03/27/2024 10:50:36 61 >19 (ng/mL) Final Performing Location [facility] - [address] [place] [address]
--- OUTSIDE RECORDS SUMMARY | 2024-08-09 14:45 | External Medical Summary | Summary of Care ---
Author Name Unknown Organization [facility] Address [address] [address] Phone [phone] Care Team Providers Care Drip Box Tender Name Role Phone Brent Smith MD Primary Care Provider + Reason for Visit * Reason Comments Follow Up 3 month follow up Encounter Details Date Type Department Care Team (Late st Contact Info) Description 03/15/2024 11:00 AM EDT Office Visit Hematology/Oncology [facility] [address] [place] [address] Angela Renteria CRNP [address] [facility] [place] [address] Iron deficiency anemia, unspecified iron deficiency anemia type* Allergies Active Allergy Reactions Criticality Noted Date [...] as of this encounter (statuses as of 03/15/2024) Medications Medication Sig Dispensed Refills Start Date End Date Status ASPIRIN 81 MG PO TABS Take by mouth every evening. 02/05/2014 Active Blood Glucose Monitoring Suppl (Ensphere SolutionsE) DEVIIndications:DM type 2, goal A1C below 8.0 [...] 90 Tablet 3 04/01/2023 Active Nystatin-Triamcinolo ne 449077-2.1 UNIT/GM-% External Ointment (Mycolog)Indications :Dermatitis Apply topically to affected area 3 times a day. Apply to affected area 15 g 1 04/18/2023 Active Furosemide 20 MG Oral Tablet (Lasix)Indications:H TN, goal below 140/90,Coronary artery disease involving tazlina heart without angina pectoris, unspecified vessel or [...] evening. 15 mL 1 08/29/2023 Active Pen [place]ol[place] 32G X 4 MMIndications:Type 2 diabetes mellitus with hemoglobin A1c goal of less than 8.0% ([facility]) Use as directed. To administer insulin. 100 Each 3 08/29/2023 Active Pioglitazone HCl 30 MG Oral Tablet (Actos) Take 1 Tablet by mouth in the morning. 90 Tablet 3 08/29/2023 Active FreeStyle LancetsIndications:T ype 2 diabetes mellitus with hemoglobin A1c goal of less than 8.0% ([facility]) Use to test blood sugar twice daily or as directed E11.9 180 Each 09/08/2023 Active FreeStyle Lite Test In Vitro Strip (Glucose Blood)Indications:Ty pe 2 diabetes mellitus with hemoglobin A1c goal of less than 8.0% ([facility]) Use to test blood sugar twice daily [...] DINNER 90 Tablet 1 02/01/2024 Active Tiotropium Rector-Olodaterol 2.5-2.5 MCG/ACT Inhalation Aerosol Solution (Stiolto Respimat)Indications :Centrilobular emphysema (HCC) Inhale 2 Puffs by mouth in the morning. 12 g 3 01/31/2024 Active FLUoxetine HCl 40 MG Oral Capsule (PROzac) Take 1 Capsule by mouth in the morning. 90 Capsule 1 03/07/2024 Active documented as of this encounter (statuses as of 03/15/2024) Active Problems Problem Noted Date Diagnosed Date [...] stenosis. Had C5-6 b/l NATAN 03/10 colon [facility]--W[facility] angie 10y 03/07 MRI lumbar [...] (coronary artery disease) 07/07/2012 Overview: STENT 2007 [facility], [place] 2004 HTN, goal below 140/90 04/10/2012 Overview: Per HTN Protocol #27. ADVANCE DIRECTIVE INFORMATION 03/19/2010 Overview: Information offered-patient declined. Type 2 diabetes mellitus wit h hemoglobin A1c goal of less than 8.0% 08/06/2009 Overview: Per Lipid Taxonomy. ICD-10 update of inactive term Old myocardial infarct 03/13/2009 Overview: INFEROLATERAL MD 2004 Chronic rhinitis 10/07/2008 Gastroparesis 04/27/2007 Sarcoidosis 05/12/2005 Overview: DX 2004 EGD showing nonnecrotizing granuloma stomach + wt loss. Saw pulm. FAMILY HX-GI MALIGNANCY 02/09/2005 documented as of this encounter (statuses as of 03/15/2024) Resolved Problems Problem Noted Date Diagnosed Date Resolved Date Coronary artery disease invo lving tazlina coronary artery of tazlina heart with unstable angina pectoris 09/05/2019 08/06/2021 [...] myocardial infarction 03/13/2009 Overview: Modified by Acute MD Protocol #5. Major depressive disorder, r ecurrent episode, moderate 06/13/2013 documented as of this encounter (statuses as of 03/15/2024) Immunizations Name Administration Dates Next Due COVID-19 mRNA, LNP-s, No Pre serve, 2-Dose Series (Moderna) 10/27/2020,09/29/2020 COVID-19, LNP-s, No Preserve , Klaus-sucrose, Ages 12+ (Pfizer) 03/17/2022 COVID-19, MRNA-LNP, 23-24, P F, 30 MCG/0.3 mL, 12 YRS AND ABOVE, IM ([facility]) 06/07/2023 COVID-19, mRNA, LNP-s, PF, B ooster, [...] uit: Not Asked; Counseling Given: Not Answered Comments:/ ppd;08/19/21,tired to quit 8 times, x 2 [...] Sign Reading Time Taken Comments Blood Pressure 108/69 03/15/2024 10:48 AM EDT Pulse 64 03/15/2024 10:48 AM EDT Temperature 35.7 C (96.2 F) 03/15/2024 10:48 AM E DT Respiratory Rate - - Oxygen Saturation 94% 03/15/2024 10:48 AM EDT Inhaled Oxygen Concentration - - Weight 61.7 kg (136 lb 1.6 oz) 03/15/2024 10:48 AM EDT Height - - Body Mass Index 24.11 12/15/2023 12:58 PM EDT documented in this encounter Functional Status [...] as of this encounter Progress Notes * Angela Renteria CRNP - 03/15/2024 11:00 AM EDT Hematology/Oncology Outpatient Clinic note Michelle Singh Ewen [address] [place] [address] Name: Shelly Macdonald Date: 03/15/2024 CHIEF COMPLAINT: Shelly Macdonald is a 73 year old female patient of JUAN MANUEL Orta here today for f/u visit today. From Patient chart confirmed with patient. HEMATOLOGY/ONCOLOGY DIAGNOSIS: Iron deficiency anemia TREATMENT HISTORY: IV Venofer x 4 (last dose 200 mg) completed 01/17/24 -premedicate with 25mg of PO Benadryl, 650mg Tylenol with prolonged infusion rate d/t adverse effects CURRENT TREATMENT: Super B Complex HISTORY OF PRESENT ILLNESS: Patient with past medical history of CAD, dyslipidemia, HTN, LUISA, gastroparesis, CKD stage IIIa andautoimmune hepatitis - established with hepatology. She had some elevated LFTs and had extensive workup eventually being diagnosed with likely autoimmune hepatitis. She was started on prednisone 5 mg. The prednisone also seemed to be helping her jointinflammation and her hand pain is much improved. She also saw Dr. Mari for consult on this. Has now been off of prednisone since before . Currently not on any immunosuppression. Following closely with hepatology. She notes she has felt run down and fatigued for about 2 - 3 months.. She has nausea, this is chronic after PO intake due to gastroparesis. May last through the meal. No vomiting. She has GERD - on PPI BID. Denies diarrhea. Typically stools move daily. Semi-formed. Brown stools. No black or bloody stools. No fever, chills, CP, SOB. Component Latest Ref Rng 11/12/2022 07/08/2023 08/05/2023 10/25/2023 WBC 4.00 - 10.80 K/uL 6.52 6.74 8.80 5.64 RBC 3.85 - 5.15 M/uL 3.77 3.95 3.86 3.63 HGB 12.0 - 15.3 g/dL 12.1 11.3 (L) 11.1 (L) 10.1 (L) HCT 36.0 - 45.2 % 35.1 (L) 35.2 (L) 34.2 (L) 31.6 (L) MCV 81.5 - 97.5 fL 93.1 89.1 88.6 87.1 MCH 27.0 - 34.0 pg 32.1 28.6 28.8 27.8 MCHC 32.0 - 36.0 g/dL 34.5 32.1 32.5 32.0 RDW 11.5 - 15.5 % 11.8 13.7 14.1 13.8 PLT 140 - 400 K/uL 180 214 212 226 MPV 6.6 - 11.1 fL 10.1 10.6 10.4 9.8 Is on ASA Rare ETOH Smokes 1/2 PPD - completed annual low dose chest CT for lung cancer screening in August. EGD and [place] unremarkable. Was found to have iron deficiency three years prior. Had a comprehensive work up at that time whichwas unremarkable. Was living in [place] at that time. Also had a 30 pound weight loss at that time which was not explained. Was not on Ozempic at that time. Was having difficulty eating and poor po intake thought to be a flair of gastroparesis. Has taken oral iron previously. Tolerated it ok at that time. Denies any adverse GI side effects. HISTORY OF PRESENT ILLNESS: Shelly Macdonald is a 73 year old female with a history as outlined above. Currently here for f/u visit today. Patient continues to have significant fatigue. No improvement after the IV iron infusions.Continues to have daily headaches. Nausea is chronic. Tolerated the iron infusions well. Past Medical History: Diagnosis Date ASCVD (arteriosclerotic cardiovascular disease) 07/07/2012 STENT 2007 [place], [place] 2003 Autoimmune hepatitis (HCC) 05/06/2023 CAD (coronary artery disease) 07/07/2012 STENT 2007 [place] 2003 Cervical disc disorder 04/23/2014 Chronic [...] intractable 09/23/2015 Old myocardial infarct 03/13/2009 INFEROLATERAL MD 2004 LUISA (obstructive sleep apnea) 10/13/2017 S/P cardiac cath 10/17/2018 Sarcoidosis 05/12/2005 DX 2004 EGD showing nonnecrotizing granuloma stomach + wt loss. Saw pulm. Past Surgical History: Procedure Laterality Date CARDIAC CATH-CARDIOLOGY ONLY 11/06/2007 STENTED - taxus express 2 CARDIAC CATH-CARDIOLOGY ONLY 10/17/2018 2 stents LAD @[facility]. Dr Morales CARDIAC CATH-CARDIOLOGY ONLY 01/29/2019 drug eluiting stent LAD at [facility] Synergy CARPAL TUNNEL SURGERY Bilateral Carpal Tunnel repair COLONOSCOPY THRU STOMA, W/BIOPSY 06/15/2007 hyperplastic, repeat in 10 years COLONOSCOPY, DIAGNOSTIC (RECTUM) 05/15/2012 COLONOSCOPY FLEXIBLE PROXIMAL DIAGNOSTIC performed [facility],HYPERPLASTIC POLYPS REPEAT COLONOSCOPY IN 5 YEARS COLONOSCOPY, DIAGNOSTIC (RECTUM) 07/12/2016 tortuous colon, diverticulosis, repeat 5 yrs/[facility] COLONOSCOPY, DIAGNOSTIC (RECTUM) 12/01/2023 COLONOSCOPY FLEXIBLE PROXIMAL DIAGNOSTIC performed by Zenobia Costa MD at [facility]OSCOPY [facility] EGD, FLEXIBLE, DIAGNOSTIC 07/12/2016 normal bx/[facility] EGD, FLEXIBLE, DIAGNOSTIC 11/18/2022 biopsies normal/ESOPHAGOGASTRODUODENOSCOPY (EGD), FLEXIBLE, TRANSORAL, DIAGNOSTIC performed by MD Marcial at ENDOSCOPY [facility] EGD, FLEXIBLE, DIAGNOSTIC 12/01/2023 ESOPHAGOGASTRODUODENOSCOPY (EGD), FLEXIBLE, TRANSORAL, DIAGNOSTIC performed by Zenobia Costa MD at ENDOSCOPY [facility] EGD, W/ENDOSCOPIC US 11/29/2012 UPPER GI ENDOSCOPY ENDOSCOPIC ULTRASOUND performed by Chikis Cole [facility]: benign polyp to stomach EGD, W/ENDOSCOPIC US 01/25/2023 mild liver fibrosis, GB sludge / ESOPHAGOGASTRODUODENOSCOPY (EGD), FLEXIBLE, TRANSORAL, ENDOSCOPIC ULTRASOUND performed by Miguel Ruff MD at ENDOSCOPY [facility] INFORMATION Laparoscopy X3 KNEE ARTHROSCOPY, DIAGNOSTIC Right Knee Scope,Diagnostic MISCELLANEOUS ORDER ([facility] ONLY) 05/19/2016 NATAN L5-s1 Dr Leija PSU OTHER Bilateral 02/09/2021 b/l C5-6 NATAN at [facility] REMOVE TONSILS & ADENOIDS, UNDER 12 SMALL BOWEL ENDOSCOPY W/BX 03/2007 TENDON SHEATH INCISION, FINGER Right 11/28/2017 TRIGGER FINGER RELEASE performed by Marcelo Arnold DO at [facility] TENDON SHEATH INCISION, FINGER Left 09/21/2023 LEFT TRIGGER FINGER RELEASE performed by Bill Reilly MD at [facility] TOTAL HYSTERECTOMY VALARIE (Total Abdominal Hysterectomy) Social History Socioeconomic History Marital status: Spouse name: Not on file Number of children: Not on file Years of education: Not on file Highest education level: Not on file Occupational History 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 Blood Glucose Monitoring Suppl ([employer] LITE) DEN Use to test blood sugar [...] TABLET BEFORE BEDTIME 90 Tablet 3 Nystatin-Triamcinolone 782657-3.1 UNIT/GM-% External Ointment (Mycolog) Apply topically to [...] MORNING AND EVENING MEALS 180 Tablet 3 Insulin Glargine Solostar 100 UNIT/ML Subcutaneous Solution Pen-injector (Lantus SoloStar) Inject 10 Units under the skin every evening. 15 mL 1 Pen Joliet 32G X 4 MM Use as directed. [...] DAILY WITH DINNER 90 Tablet 1 Tiotropium Rector-Olodaterol 2.5-2.5 MCG/ACT Inhalation Aerosol Solution (Stiolto Respimat) Inhale2 Puffs by mouth in the morning. 12 g 3 FLUoxetine HCl 40 MG Oral Capsule (PROzac) Take 1 Capsule by mouth in the morning. 90 Capsule 1 No current facility-administered medications for this visit. REVIEW OF SYSTEMS: See HPI - otherwise negative OBJECTIVE: Filed Vitals: 03/15/24 1048 BP: 108/69 Pulse: 64 Temp: 35.7 C (96.2 F) TempSrc: Tympanic SpO2: 94% Weight: 61.7 kg (136 lb 1.6 oz) Wt Readings from Last 5 Encounters: 03/15/24 61.7 kg (136 lb 1.6 oz) 02/20/24 60.8 kg (134 lb) 01/31/24 61.1 kg (134 lb 9.6 oz) 12/22/23 59 kg (130 lb) 12/15/23 61.8 kg (136 lb 3.2 oz) PHYSICAL EXAM: General Appearance: Normal - Healthy appearing patient in no acute distress Lungs/Thorax: Normal respiratory effort Extremities: No edema Neurologic: Normal - Grossly intact LABS: Results for orders placed or performed in [...] results can be found in Results Review. IMPRESSION/PLAN: Iron deficiency anemia IV Venofer x 4 (last dose 200 mg) completed 01/17/24 Lab results reviewed: Hgb has normalized at 07/26 Iron studies improved with ferritin 140 and TSAT 7% Patient unfortunately did not note much clinical improvement. EGD and colonoscopy unremarkable. Patient also completed VCE which did not reveal any signs of bleeding or abnormalities. Will continue to observe with repeat CBCd, iron screen and ferritin in three months Continue Super B Complex With patient's history of gastroparesis unlikely to tolerate oral iron therapy. Also on PPI BID so oral iron absorption unlikely to be adequate. Patient would still like to try an oral iron supplement which is reasonable. Recommended to take at lunchtime. Continue to follow with GI. Smokes 1/2 PPD - due for annual low dose chest CT for lung cancer screening in August 2024. RTC in six months with provider with cbc/diff, cmp, iron screen and ferritin JUAN MANUEL Mcneill documented in this encounter Nursing Notes * Lizz Cheung, MED ASSIST - 03/15/2024 10:49 AM EDT Patient identifed by name and birthdate Do you have any concerns about pain management for today's visit? No Living Will or Advance Directive for Health Care as noted on the problem list. [facility] is a way you can talk to your provider on line through e-mail. Would you like to sign up? I can activate it for you? ALREADY ACTIVE Filed Vitals: 03/15/24 1048 BP: 108/69 Pulse: 64 Temp: 35.7 C (96.2 F) TempSrc: Tympanic SpO2: 94% Weight: 61.7 kg (136 lb 1.6 oz) Patient was instructed to not get up on the exam table/exam chair until directed and assisted by their provider; patient is to remain seated in the chair/ wheelchair/ exam table/ exam chair for fall prevention and safety reasons. Patient is aware to have assistance to step down off exam table/exam chair with personnel. Patient voiced full comprehension of instructions. documented in this encounter Plan of Treatment Upcoming Encounters Date Type Department Care Team (Late st Contact Info) Description 03/27/2024 10:00 AM EDT Office Visit Pharmacy, [facility] [address] [place] [address] [facility] [address] [place] [address] 03/27/2024 10:30 AM EDT Pharmacy Pharmacy, [facility] [address] [place] [address] [facility] [address] [place] [address] 04/02/2024 10:00 AM EDT Telemedicine Psychiatry, [facility] [address] [place] [address] Pedro Luis Casas CRNP [address] [place] [address] 05/10/2024 8:20 AM EDT Office Visit Hepatology, [facility] [address] [place] [address] Lali Chowdhury DO [address] [place] [address] 05/10/2024 9:20 AM EDT Office Visit Family Practice [facility] [address] [place] [address] Brent Smith MD [address] [place] [address] 06/28/2024 9:30 AM EST Office Visit Cardiology, [facility] [address] [place] [address] Markell Brooks PA-C [address] [place] [address] 08/28/2024 9:00 AM EST Office Visit Rheumatology [facility] [address] [facility] [place] [address] Matthew Mari MD [address] [place] [address] 09/17/2024 11:30 AM EST Office Visit Hematology/Oncology [facility] [place] [address] [facility] [place] [id number] Angela Renteria CRNP [address] [facility] [place] [address] Scheduled Orders Name Type Priority Associated Diagnoses Orde r Schedule CBC WITH WBC DIFFERENTIAL Lab STAT Iron deficiency anemia, unspecified iron deficiency anemia type Every 3 Months for 4 Occurrences starting 03/15/2024 until 04/15/2025 IRON SCREEN, INCLUDING TIBC Lab STAT Iron deficiency anemia, unspecified iron deficiency anemia type Every 3 Months for 4 Occurrences starting 03/15/2024 until 04/15/2025 FERRITIN Lab STAT Iron deficiency anemia, unspecified iron deficiency anemia type Every 3 Months for 4 Occurrences starting 03/15/2024 until 04/15/2025 COMPREHENSIVE METABOLIC PANEL Lab STAT Iron deficiency anemia, unspecified iron deficiency anemia type Every 6 Months for 2 Occurrences starting 03/15/2024 until 04/15/2025 Health Maintenance Due Date Last Done Comments [...] Additional history exists CKD PHOS USE SMARTSET 82881 08/05/202407/22, 08/09/2022, 08/06/2021, Additional history exists Diabetic Foot Exam 08/05/2024 08/05/2023, 1 09/18/2021, 09/04/2021, Additional history exists O2 ASSESSMENT COMPLETED IN PAST YEAR FOR COPD 11/30/2024 12/01/2023 B-12 12/14/2024 12/15/2023, 05/22, 11/12/2022, Additional history exists CKD HGB USE SMARTSET 65359 03/12/202503/12, 03/12/2024, 02/14/2024, Additional history exists Colonoscopy [...] as of this encounter Visit Diagnoses Diagnosis Iron deficiency anemia, unspecified iron deficiency anemia type- Primary documented in this encounter Advance Directives Documents on File Type Date Recorded Patient Patient Service Specialist 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 Care Teams Drip Box Tender Relationship Specialty Start Date End Date Brent Smith MD [address] [place] [address] PCP - General Family Medicine 04/20/23 documented as of this encounter
--- OUTSIDE RECORDS SUMMARY | 2024-08-09 14:46 | External Medical Summary ---
Author Name Unknown Address Unknown Organization K09:[facility] [place] [address] Laboratory Report Ordering Provider Test Date Status KIRSTEN GAINES 03/12/2024 07:58:58 Final Observation Date Value Abnormality Reference (Units ) Status WBC, Total 03/12/2024 07:58:58 7.74 4.00-10.8 0 (K/uL) Final RBC 03/12/2024 07:58:58 4.13 3.85-5.15 (M/uL) Final Hemoglobin 03/12/2024 07:58:58 12.5 12.0-15.3 (g/dL) Final HCT 03/12/2024 07:58:58 38.1 36.0-45.2 (%) Final MCV 03/12/2024 07:58:58 92.3 81.5-97.5 (fL) Final MCH 03/12/2024 07:58:58 30.3 27.0-34.0 (pg) Final MCHC 03/12/2024 07:58:58 32.8 32.0-36.0 (g/dL) Final RDW 03/12/2024 07:58:58 18.9 11.5-15.5 (%) Final Platelets 03/12/2024 07:58:58 165 140-400 (K /uL) Final MPV 03/12/2024 07:58:58 10.1 6.6-11.1 ( fL) Final Performing Location [facility] [place] [address]
--- OUTSIDE RECORDS SUMMARY | 2024-08-09 14:46 | External Medical Summary | Summary of Care ---
Author Name Unknown Organization [facility] Address [address] [facility] [place] [address] Phone [phone] Care Team Providers Care Informatics Spec Name Role Phone Brent Smith MD Primary Care Provider + Reason for Visit * Reason Onset Date Comments Follow Up 02/28/2024 Encounter Details Date Type Department Care Team (Late st Contact Info) Description 02/28/2024 1:00 PM EDT Scheduled Telephone Pulmonary Medicine, [place] [address], [place] [phone] [place], Nurse Phone Call Pulmonary [facility] [address] [place] [address] Allergies Active Allergy Reactions Criticality Noted Date [...] as of this encounter (statuses as of 02/28/2024) Medications Medication Sig Dispensed Refills Start Date [...] 90 Tablet 3 04/01/2023 Active Nystatin-Triamcinolo ne 963668-8.1 UNIT/GM-% External Ointment (Mycolog)Indications :Dermatitis Apply topically to affected area 3 times a day. Apply to affected area 15 g 1 04/18/2023 Active Furosemide 20 MG Oral Tablet (Lasix)Indications:H TN, goal below 140/90,Coronary artery disease involving [place] heart without angina pectoris, unspecified vessel [...] evening. 15 mL 1 08/29/2023 Active Pen Rosalia 32G X 4 MMIndications:Type 2 diabetes mellitus [...] or Wheezing. 18 g 3 09/27/2023 Active FLUoxetine HCl 40 MG Oral Capsule (PROzac) Take 1 Capsule by mouth in the morning. 90 Capsule 1 10/04/2023 Active Metoprolol Succinate ER 100 MG Oral [...] DINNER 90 Tablet 1 02/01/2024 Active Tiotropium Renault-Olodaterol 2.5-2.5 MCG/ACT Inhalation Aerosol Solution (Stiolto Respimat)Indications :Centrilobular emphysema (HCC) Inhale 2 Puffs by mouth in the morning. 12 g 3 01/31/2024 Active documented as of this encounter (statuses as of 02/28/2024) Active Problems Problem Noted Date Diagnosed Date [...] C5-6 b/l NATAN 03/10 colon @[facility]--WNL angie 10y 03/07 MRI lumbar some arthritis [...] artery disease) 07/07/2012 Overview: STENT 2008 [facility], [place] 2004 HTN, goal below 140/90 04/10/2012 Overview: Per HTN Protocol #27. ADVANCE DIRECTIVE INFORMATION 03/19/2010 Overview: Information offered-patient declined. Type 2 diabetes mellitus wit h hemoglobin A1c goal of less than 8.0% 08/06/2009 Overview: Per Lipid Taxonomy. 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 Saw pulm. FAMILY HX-GI MALIGNANCY 02/09/2005 documented as of this encounter (statuses as of 02/28/2024) Resolved Problems Problem Noted Date Diagnosed Date Resolved Date Coronary artery disease invo lving [place] coronary artery of [place] heart with unstable angina pectoris 09/05/2019 [...] myocardial infarction 03/13/2009 Overview: Modified by Acute [place] Protocol #5. Major depressive disorder, r ecurrent episode, moderate 06/13/2013 documented as of this encounter (statuses as of 02/28/2024) Immunizations Name Administration Dates Next Due COVID-19 mRNA, LNP-s, No Pre serve, 2-Dose Series (Moderna) 10/27/2020,09/29/2020 COVID-19, LNP-s, No Preserve , Klaus-sucrose, Ages 12+ (Pfizer) 03/17/2022 COVID-19, MRNA-LNP, 23-24, P F, 30 MCG/0.3 mL, 12 YRS AND ABOVE, IM (PFIZER-Comiratrium health) 06/07/2023 COVID-19, mRNA, LNP-s, PF, B [...] Date Smoking Tobacco: Every Day Cigarettes 0.5 59.5 Started: 1964 Passive Smoke Exposure: Past Smokeless Tobacco: Never Comments:/ ppd;08/19/21,ti red to quit 8 times, x [...] have money to get more. Patient declined Sex and Gender Information Value Date Recorded [...] encounter Miscellaneous Notes * Telephone Encounter - Urszula Perea LPN - 02/28/2024 2:14 PM EDT Called patient back to follow up after recent clinic visit on 01/31/2024. Patient's inhaler was changed from Spiriva to Stiolto. Patient states that she has noticed a big difference in the amount thatshe was coughing and the sputum production. Patient also started OTC Zyrtec as recommended and thishas been helping with her symptoms as well. Patient has no questions or concerns at this time. Encouraged patient to follow up with any change in pulmonary condition. Patient verbalized understanding. documented in this encounter Plan of Treatment Upcoming Encounters Date Type Department Care Team (Late st Contact Info) Description 03/08/2024 2:00 PM EDT Office Visit Orthopaedics [facility] [address] [facility] [place] [address] Clark Smith PA-C [address] [place] [address] [place] [address] 03/12/2024 8:10 AM EDT Laboratory Laboratory [facility] [address] [place] [phone] Chemult, Lab [facility] [address] [facility] [place] [address] 03/15/2024 11:00 AM EDT Office Visit Hematology/Oncology [facility] [address] [place] [phone] Angela Renteria CRNP [address] [place] [address] 03/27/2024 10:00 AM EDT Office Visit Pharmacy, [facility] [address] [facility] [place] [address] [facility] [address] [place] [address] 03/27/2024 10:30 AM EDT Pharmacy Pharmacy, [facility] [address] [place] [address] [facility] [address] [place] [address] 04/02/2024 10:00 AM EDT Telemedicine Psychiatry, [facility] [address] [place], [place] [address] Pedro Luis Casas CRNP [address] [place] [address] 05/10/2024 8:20 AM EDT Office Visit Hepatology, [facility] [address] [place], [place] [address] Lali Chowdhury DO [address] [place] [address] 05/10/2024 9:20 AM EDT Office Visit Family Practice [facility] [address] [place] [address] Brent Smith MD [address] [place] [address] 06/28/2024 9:30 AM EST Office Visit Cardiology, [facility] [address] [place] [address] Markell Brooks PA-C [address] [place] [address] 08/28/2024 9:00 AM EST Office Visit Rheumatology [address] [place] [address] Matthew Mari MD [address] [place] [address] [place] [address] Health Maintenance Due Date Last Done Comments [...] Additional history exists CKD PHOS USE SMARTSET 94199 08/05/202407/22, 08/09/2022, 08/06/2021, Additional history exists Diabetic Foot Exam 08/05/2024 08/05/2023, 1 09/18/2021, 09/04/2021, Additional history exists O2 ASSESSMENT COMPLETED IN PAST YEAR FOR COPD 11/30/2024 12/01/2023 B-12 12/14/2024 12/15/2023, 05/22, 11/12/2022, Additional history exists CKD HGB USE SMARTSET 29681 02/13/202502/13, 02/14/2024, 01/27/2024, Additional history exists Colonoscopy 11/30/2028 12/01/2023, 11/20, [...] Documents on File Type Date Recorded Patient Knuckle Bender 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 Care Teams Informatics Spec Relationship Specialty Start Date End Date Brent Smith MD [address] [place] [address] PCP - General Family Medicine 04/20/23 documented as of this encounter
--- OUTSIDE RECORDS SUMMARY | 2024-08-09 14:46 | External Medical Summary | Summary of Care ---
Author Name Unknown Organization [facility] Address [address] [facility] [place] [address] Phone [phone] Care Team Providers Care Granite Block Paver Name Role Phone Brent Smith MD Primary Care Provider + Reason for Visit * Reason Onset Date Comments Follow Up 02/28/2024 Encounter Details Date Type Department Care Team (Late st Contact Info) Description 02/28/2024 1:00 PM EDT Scheduled Telephone Pulmonary Medicine, [place] [address] [place], [place] [phone] [place], Nurse Phone Call Pulmonary [facility] [address] [place] [address] Allergies Active Allergy Reactions Criticality [...] 90 Tablet 3 04/01/2023 Active Nystatin-Triamcinolo ne 424632-4.1 UNIT/GM-% External Ointment (Mycolog)Indications :Dermatitis Apply topically to affected area 3 times a day. Apply to affected area 15 g 1 04/18/2023 Active Furosemide 20 MG Oral Tablet (Lasix)Indications:H TN, goal below 140/90,Coronary artery disease involving [place] heart without angina pectoris, unspecified vessel or [...] evening. 15 mL 1 08/29/2023 Active Pen Kingsley 32G X 4 MMIndications:Type 2 diabetes mellitus with hemoglobin A1c goal of less than 8.0% (HCC) Use as directed. To administer insulin. 100 Each 3 08/29/2023 Active Pioglitazone HCl 30 MG Oral Tablet (Actos) Take 1 Tablet by mouth in the morning. 90 Tablet 3 08/29/2023 Active FreeStyle LancetsIndications:T ype 2 diabetes mellitus with hemoglobin A1c goal of less than 8.0% ([facility]) Use to test blood sugar twice daily or as directed E11.9 180 Each 09/08/2023 Active FreeStyle Lite Test In Vitro Strip (Glucose Blood)Indications:Ty pe 2 diabetes mellitus with hemoglobin A1c goal of less than 8.0% ([facility]) Use to test blood sugar twice [...] DINNER 90 Tablet 1 02/01/2024 Active Tiotropium Har[place]-Olodaterol 2.5-2.5 MCG/ACT Inhalation Aerosol Solution (Stiolto Respimat)Indications [...] stenosis. Had C5-6 b/l NATAN 03/10 colon @[facility]--WNL angie 10y 03/07 MRI lumbar some arthritis [...] (coronary artery disease) 07/07/2012 Overview: STENT 2008 [facility] [place] 2004 HTN, goal below 140/90 04/10/2012 [...] Resolved Date Coronary artery disease invo lving [place] coronary artery of [place] heart with unstable angina pectoris 09/05/2019 08/06/2021 [...] encounter Miscellaneous Notes * Telephone Encounter - Kimberly Franks CRNP - 02/28/2024 3:22 PM EDT Wonderful, thank you for the update. JUAN MANUEL Marie * Telephone Encounter - Urszula Perea LPN [...] 03/08/2024 2:00 PM EDT Office Visit Orthopaedics [facility] [address] [facility] [place] [address] Clark Smith PA-C [address] [place] [address] 03/12/2024 8:10 AM EDT Laboratory [facility] [place] [address] [place] [phone] [address] [place] [address] 03/15/2024 11:00 AM EDT Office Visit [facility]ematology[facility] [address] [place] [phone] Angela Renteria CRNP [address] [place] [address] 03/27/2024 10:00 AM EDT Office Visit Pharmacy, [facility] [address] [place] [address] [facility] [address] [place] [address] 03/27/2024 10:30 AM EDT Pharmacy Pharmacy, [facility] [address] [place] [address] [facility] [address] [place] [address] 04/02/2024 10:00 AM EDT Telemedicine Psychiatry, [facility] [address] [place] [address] Pedro Luis Casas CRNP [address] [place] [address] 05/10/2024 8:20 AM EDT Office Visit Hepatology, [facility] [address] [place] [address] Lali Chowdhury DO [address] [place] [address] 05/10/2024 9:20 AM EDT Office Visit Family Practice [facility] [address] [place] [address] Brent Smith MD [address] [place] [address] 06/28/2024 9:30 AM EST Office Visit Cardiology, [facility] [address] [place] [address] Markell Brooks PA-C [address] [place] [address] 08/28/2024 9:00 AM EST Office Visit Rheumatology [facility] [address] [place] [address] Matthew Mari MD [address] [place] [address] Health Maintenance Due Date Last Done Comments [...] Additional history exists CKD PHOS USE SMARTSET 84327 08/05/202407/22, 08/09/2022, 08/06/2021, Additional history exists Diabetic Foot Exam 08/05/2024 08/05/2023, 1 09/18/2021, 09/04/2021, Additional history exists O2 ASSESSMENT COMPLETED IN PAST YEAR FOR COPD 11/30/2024 12/01/2023 B-12 12/14/2024 12/15/2023, 05/22, 11/12/2022, Additional history exists CKD HGB USE SMARTSET 51924 02/13/202502/13, 02/14/2024, 01/27/2024, Additional history exists Colonoscopy 11/30/2028 12/01/2023, 11/20, 12/16/2020, Additional history exists Colorectal Cancer Screening 11/30/2028 DXA Scan 06/22/2029 06/22/2022, 1108/2021, 10/22/2020, Additional history exists DTaP,Tdap,and Td Vaccines [...] Documents on File Type Date Recorded Patient Safety Investigator/Cause Analyst 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 Care Teams Granite Block Paver Relationship Specialty Start Date End Date Brent Smith MD [address] [place] [address] PCP - General Family Medicine 04/20/23 documented as of this encounter
--- OUTSIDE RECORDS SUMMARY | 2024-08-09 14:46 | External Medical Summary ---
Author Name Unknown Address Unknown Organization : Laboratory Report Ordering Provider Test Date Status CHARLI MARC 02/20/2024 08:56:57 Final Observation Date Value Abnormality Reference (Units ) Status Mycobacterium tuberculosis stimulated gamma interferon [Interpretation] in Blood Qualitative 02/20/2024 08:56:57 NEGATIVE NEGATIVE Final Negative test result. M. tub erculosis complex
infection unlikely. Gamma interferon background [Units/volume] in Blood by Immunoassay 02/20/2024 08:56:57 0.09 (IU/mL) Final Mitogen stimulated gamma int erferon [Units/volume] corrected for background in Blood 02/20/2024 08:56:57 8.09 (IU/mL) Final Mycobacterium tuberculosis s timulated gamma interferon release by CD4+ T-cells [Units/volume] corrected for background in Blood 02/20/2024 08:56:57 0.05 (IU/mL) Final Mycobacterium tuberculosis s timulated gamma interferon release by CD4+ and CD8+ T-cells [Units/volume] corrected for background in Blood 02/20/2024 08:56:57 0.05 (IU/mL) Final The Nil tube value reflects the background interferon
gamma immune response of the patient's blood sample.
This value has been subtracted from the patient's
displayed TB and Mitogen results.
Lower than expected results with the Mitogen tube
prevent false-negative Quantiferon readings by detect-
ing a patient with a potential immune suppressive
condition and/or suboptimal pre-analytical specimen
handling.
The TB1 Antigen tube is coated with the M.
tuberculosis-specific antigens designed to elicit
responses from TB antigen primed CD4+ helper
T-lymphocytes.
The TB2 Antigen tube is coated with the M.
tuberculosis-specific antigens designed to elicit
responses from TB antigen primed CD4+ helper and CD8+
cytotoxic T-lymphocytes.
For additional information, please refer to
http://education.[employer].Cost Effective Data/faq/HSZ832
(This link is being provided for information/
educational purposes only.)

Test Performed at:
[facility]
[address] [facility]
[place] [address]
Marbin Ivey M.D., Ph.D.,Director of Laboratories Performing Location
--- OUTSIDE RECORDS SUMMARY | 2024-08-09 14:46 | External Medical Summary ---
Author Name Unknown Address Unknown Organization : Laboratory Report Ordering Provider Test Date Status CHARLI MARC 02/20/2024 08:56:57 Final Observation Date Value Abnormality Reference (Units ) Status G6PD 02/20/2024 08:56:57 15.0 7.0-20.5 ( U/g Hgb) Final
Test Performed at:
[facility]
[address] [place] [address]
Marbin Ivey M.D., Ph.D.,Director of Laboratories Performing Location
--- OUTSIDE RECORDS SUMMARY | 2024-08-09 14:46 | External Medical Summary | Summary of Care ---
Author Name Unknown Organization [facility] Address [address] [facility] [place] [address] Phone [phone] Care Team Providers Care Solar Manufacturer'S Representative Name Role Phone Brent Smith MD Primary Care Provider + Reason for Visit * Reason Comments Rheum Follow Up Recheck " new onset Anemia" Encounter Details Date Type Department Care Team (Latest Contact Info) Description 02/20/2024 8:20 AM EDT Office Visit Rheumatology [place] [id number] [place] [address] Matthew Mari MD [facility] [place] [address] Sarcoidosis*; Inflammatory polyarthritis (HCC) Allergies Active Allergy Reactions Criticality Noted Date [...] as of this encounter (statuses as of 02/20/2024) Medications Medication Sig Dispensed Refills Start Date [...] 90 Tablet 3 04/01/2023 Active Nystatin-Triamcino lone 595950-5.1 UNIT/GM-% External Ointment (Mycolog)Indicatio ns:Dermatitis Apply topically to affected area 3 times a day. Apply to affected area 15 g 1 04/18/2023 Active Furosemide 20 MG Oral Tablet (Lasix)Indications :HTN, goal below 140/90,Coronary artery disease involving [place] heart without angina pectoris, unspecified vessel [...] Solostar 100 UNIT/ML Subcutaneous Solution Pen-injector (Lantus SoloStar)Indicatio ns:Type 2 diabetes mellitus with hemoglobin A1c goal of less than 8.0% (HCC) Inject 10 Units under the skin every evening. 15 mL 1 08/29/2023 Active Pen [place] 32G X 4 MMIndications:Type 2 diabetes mellitus with hemoglobin A1c goal of less than 8.0% ([facility]) Use as directed. To administer insulin. 100 Each 3 08/29/2023 Active Pioglitazone HCl 30 MG Oral Tablet (Actos) Take 1 Tablet by mouth in the morning. 90 Tablet 3 08/29/2023 Active FreeStyle LancetsIndications :Type 2 diabetes mellitus with hemoglobin A1c goal of less than 8.0% ([facility]) Use to test blood sugar twice daily or as directed E11.9 180 Each 09/08/2023 Active FreeStyle Lite Test In Vitro Strip (Glucose Blood)Indications: Type 2 diabetes mellitus with hemoglobin A1c goal of less than 8.0% ([facility]) Use to test blood sugar twice [...] DINNER 90 Tablet 1 02/01/2024 Active Tiotropium Lorane-Olodaterol 2.5-2.5 MCG/ACT Inhalation Aerosol Solution (Stiolto Respimat)Indicatio ns:Centrilobular emphysema (HCC) Inhale 2 Puffs by mouth in the morning. 12 g 3 01/31/2024 Active Benzonatate 100 MG Oral Capsule Take 1 Capsule by mouth 3 times a day as needed for Cough. 30 Capsule 1 09/27/2023 02/20/20 24 Discontinued documented as of this encounter (statuses as of 02/20/2024) Active Problems Problem Noted Date Diagnosed Date [...] done. 11/11 Upper endoscopy ok. 12/10 [place]--upper/lower scope WNL--angie [address] Kaushal Giang. 11/19/20 [place] C[place]Spine [place]. DDD most C5-6. Mod central canal and [...] 07/07/2012 Overview: STENT 2007 [facility], [place] 2004 HTN, goal [...] as of this encounter (statuses as of 02/20/2024) Resolved Problems Problem Noted Date Diagnosed Date Resolved Date Coronary artery disease invo lving prairie band coronary artery of pra[place] band heart with unstable angina pectoris 09/05/2019 [...] as of this encounter (statuses as of 02/20/2024) Immunizations Name Administration Dates Next Due COVID-19 mRNA, LNP-s, No Pre serve, 2-Dose Series (Moderna) 10/27/2020,09/29/2020 COVID-19, LNP-s, No Preserve , Klaus-sucrose, Ages 12+ (Pfizer) 03/17/2022 COVID-19, MRNA-LNP, 23-24, P F, 30 MCG/0.3 mL, 12 YRS AND ABOVE, IM (Relive-ComirnatMoneyLion) 06/07/2023 COVID-19, mRNA, LNP-s, PF, B ooster, [...] Sign Reading Time Taken Comments Blood Pressure 140/80 02/20/2024 8:11 AM EDT Pulse - - Temperature 36.5 C (97.7 F) 02/20/2024 8:11 AM ED T Respiratory Rate - - Oxygen Saturation - - Inhaled Oxygen Concentration - - Weight 60.8 kg (134 lb) 02/20/2024 8:11 AM EDT Height - - Body Mass Index 23.74 12/15/2023 12:58 PM EDT documented in this [...] as of this encounter Progress Notes * Matthew Mari MD - 02/20/2024 8:17 AM EDT Subjective: Patient seen today for further follow up evaluation of sarcoid, ? Inflammatory arthritis. Since thelast visit she got benefit form pred but elevated A1c. Cannot get her back surgery until she is offcigarettes. Her A1c is better. She is on IV iron for anemia. She did not tolerate plaquenil becauseof GI side effects. She had trigger finger surgey in August and now has 2 other fingers triggering. She reports that she gets swelling to hands, knees, ankles and toes. She has a.m. stiffness for least an hour. She will use ibuprofen at times with benefit. Most recent hemoglobin was normal but hasreceived several iron infusions. Her last liver enzyme studies showed an AST mildly elevated at 62 but normal ALT. She does report sciatica symptoms down both legs. Repeat rheumatoid testing was normal. Recent inflammatory tests were normal. Andriy level was normal. Musculoskeletal ROS: . Abnormal: joint pain and joint swelling . AM stiffness (hours): 1 . Pain scale (0-10): 4 Other ROS: . Constitutional: fatigue . Head normal . Eyes: normal . Ears, nose, throat, mouth: normal . Cardiovascular: normal . Respiratory: normal . Gastrointestinal: normal . Genitourinary: normal . Skin: normal . Neuro: see above All other ROS reviewed and negative Social History: Social History Tobacco Use Smoking status: Every Day Current packs/day: 0.50 Average packs/day: 0.5 packs/day for 59.5 years (29.7 ttl pk-yrs) Types: Cigarettes Start date: 1964 [...] No Refillable Tank No Pre-filled Pod No Current Outpatient Medications Medication Sig Dispense Refill [...] TABLET BEFORE BEDTIME 90 Tablet 3 Nystatin-Triamcinolone 399348-8.1 UNIT/GM-% External Ointment (Mycolog) Apply topically to [...] skin every evening. 15 mL 1 Pen [place] 32G X 4 MM Use as directed. [...] of Breath or Wheezing. 18 g 3 FLUoxetine HCl 40 MG Oral Capsule (PROzac) Take 1 Capsule by mouth in the morning. 90 Capsule 1 Metoprolol Succinate ER 100 MG Oral Tablet [...] DAILY WITH DINNER 90 Tablet 1 Tiotropium Lorane-Olodaterol 2.5-2.5 MCG/ACT Inhalation Aerosol Solution (Stiolto Respimat) Inhale2 Puffs by mouth in the morning. 12 g 3 No current facility-administered medications for this visit. Physical Exam: BP 140/80 | Temp 36.5 C (97.7 F) (Infrared ) | Wt 60.8 kg (134 lb) | BMI 23.74 kg/m | BSA 1.64 m General: alert, no distress, and well nourished HENT: normocephalic, external ears normal, no mucosal erythema, no mucosal edema, moist mucosa, no oral ulcers Eye Exam: PERRL, EOMI, conjunctiva are pink and non-injected, sclera clear Neck: supple, no adenopathy, thyroid normal size, non-tender, without nodularity Lymph: no palpable lymphadenopathy Heart: regular rate & rhythm, no murmur, and no gallops Lungs: clear to auscultation , no rales, wheezes or rhonchi Abdomen: abdomen soft, non-tender, and normal bowel sounds Musculoskeletal Exam: No synovitis of the hands or feet noted Has tenderness to exam of small joints of both hands Positive MTP squeeze tenderness both feet No knee effusions noted Reports pain with straight leg testing bilaterally Assessment: (D86.9) Sarcoidosis (primary encounter diagnosis) (M06.4) Inflammatory polyarthritis (HCC) There has been a question of inflammatory arthritis for a year now with response to steroids. Unfortunately she did not tolerate hydroxychloroquine. Low contact GI about methotrexate use verses sulfasalazine. Could also maybe consider Imuran. If not would need to consider a biologic. Plan: 1. Continue to avoid steroids 2. Will contact GI about further management 3. Blood work ordered 4. Return to clinic in 6 months or sooner pending course Matthew Mari MD Department of Rheumatology documented in this encounter Nursing Notes * Daniele Perdomo LPN - 02/20/2024 8:08 AM EDT Chief Complaint Patient presents with Rheum Follow Up Recheck " new onset Anemia" documented in this encounter Plan of Treatment Upcoming Encounters Date Type Department Care Team (Late st Contact Info) Description 02/28/2024 1:00 PM EDT Scheduled Telephone Pulmonary Medicine, [place] [address] [place] [address] [place], Nurse Phone Call Pulmonary Agc3 [address] [place] [address] 03/08/2024 2:00 PM EDT Office Visit Orthopaedics [facility] [address] Clark Smith PA-C [address] [place] [address] [place] [address] 03/12/2024 8:10 AM EDT Laboratory Laboratory [facility] [address] [facility] [place] [phone] [place], Lab [facility] [address] [facility] [place] [address] 03/15/2024 11:00 AM EDT Office Visit Hematology/Oncology [facility] [place] [address] [facility] [place] [phone] Angela Renteria CRNP [address] [facility] [place] [address] 03/27/2024 10:00 AM EDT Office Visit Pharmacy, [facility] 132 [facility] [place] [address] [facility] [place] [address] 03/27/2024 10:30 AM EDT Pharmacy Pharmacy, [facility] [place] [address] [facility] [place], [place] [address] 04/02/2024 10:00 AM EDT Telemedicine Psychiatry, [facility] [address] [place] [address] Pedro Luis Casas CRNP [address] [place] [address] 05/10/2024 8:20 AM EDT Office Visit Hepatology, [facility] [place] [address] Lali Chowdhury DO [address] [place] [address] 05/10/2024 9:20 AM EDT Office Visit Family Practice [facility] [place] [address] Brent Smith MD [address] [place] [address] 06/28/2024 9:30 AM EST Office Visit Cardiology, [facility] [address] [facility] [place] [address] Markell Brooks, PA-C [facility] [place] [address] 08/28/2024 9:00 AM EST Office Visit Rheumatology [place] [address] [facility] [place], [place] [address] Matthew Mari MD [address] [place] [address] [place], [place] [address] Pending Results Name Type Priority Associated Diagnoses Date /Time TPMT ACTIVITY Lab Routine Sarcoidosis 02/20/2024 8:56 AM EDT G-6-PD, RBC Lab Routine Sarcoidosis 02/20/2024 8:56 AM EDT QUANTIFERON TB GOLD PLUS Lab Routine Sarcoidosis 02/20/2024 8:56 AM EDT Scheduled Orders Name Type Priority Associated Diagnoses Orde r Schedule TPMT ACTIVITY Lab Routine Sarcoidosis Expected: 02/20/2024, Expires: 02/19/2025 G-6-PD, RBC Lab Routine Sarcoidosis Expected: 02/20/2024, Expires: 02/19/2025 QUANTIFERON TB GOLD PLUS Lab Routine Sarcoidosis Expected: 02/20/2024, Expires: 02/19/2025 Health Maintenance Due Date Last Done Comments [...] Additional history exists CKD PHOS USE SMARTSET 10110 08/05/2024/1 12/2022, 08/09/2022, 08/06/2021, Additional history exists Diabetic Foot Exam 08/05/2024 08/05/2023, 1 09/18/2021, 09/04/2021, Additional history exists O2 ASSESSMENT COMPLETED IN PAST YEAR FOR COPD 11/30/2024 12/01/2023 B-12 12/14/2024 12/15/2023, 05/22, 11/12/2022, Additional history exists CKD HGB USE SMARTSET 99798 02/13/202502/13, 02/14/2024, 01/27/2024, Additional history exists Colonoscopy 11/30/2028 12/01/2023, 11/20, 12/16/2020, Additional history exists Colorectal Cancer Screening 11/30/2028 DXA Scan 06/22/2029 06/22/2022, 08/2021, 10/22/2020, Additional history exists DTaP,Tdap,and Td Vaccines (3 - Td or Tdap) 05/31/2033 05/31/2023, 09/15/2012, 03/01/2006 Pneumococcal Vaccine: 65+ Years Completed 08/05/2016, 05/27/2015, 05/13/2013, Additional history exists Hepatitis B Completed 11/11/2017, 04/22, 03/25/2017, Additional history exists Zoster Vaccines Completed 04/13/2021, 01/21, 09/27/2012 Alpha-1 Antitrypsin Completed 12/30/2022 Lung Cancer Screening Completed 08/25/2023 , 08/18/2022, 08/13/2021, Additional history exists RETIRED - COLONOSCOPY-EVERY 5 YRS AGES 18-100 Discontinued 12/01/2023, 12/01/2023, 12/16/2020, Additional history exists GARDASIL-HPV IMMUNIZATION SERIES Aged Out No longer eligible based on patient's age to complete this topic MENINGOCOCCAL (MENACTRA/MENVEO) Aged Out No longer eligible based on patient's age to complete this topic documented as of this encounter Medical Devices Not on filedocumented as of this encounter Visit Diagnoses Diagnosis Sarcoidosis- Primary Inflammatory polyarthritis (HCC) Unspecified inflammatory polyarthropathy documented in this encounter Advance Directives Documents on File Type Date Recorded Patient Director Clinical Data 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 Care Teams Solar Manufacturer'S Representative Relationship Specialty Start Date End Date Brent Smith MD [address] [place] [address] PCP - General Family Medicine 04/20/23 documented as of this encounter
--- OUTSIDE RECORDS SUMMARY | 2024-08-09 14:46 | External Medical Summary ---
Author Name Unknown Address Unknown Organization : Laboratory Report Ordering Provider Test Date Status CHARLI MARC 02/20/2024 08:56:57 Final Observation Date Value Abnormality Reference (Units ) Status Thiopurine methyltransferase [Enzymatic activity/volume] in Red Blood Cells 02/20/2024 08:56:57 16 Final Units: nmol/hr/mL RBC
Re ference Range for TPMT Activity:
>12 Normal
4-12 Heterozygote or low metabolizer
<4 Homozygote Deficient Range
This test was developed and its analytical
performance characteristics have been determined
by [facility]. It has not been cleared or
approved by FDA. This assay has been validated
pursuant to the CLIA regulations and is used for
clinical purposes.
Test performed by [facility]
[id number],
[place] [address]

Pit Hand: Claire Rees MD,PHD,DELICIA
Test Rep[facility] by [facility],
[facility],
[address] [place], [place]
Marbin Ivey M.D., Ph.D., Director of Laboratories
, CLIA [id number] Performing Location
--- OUTSIDE RECORDS SUMMARY | 2024-08-09 14:46 | External Medical Summary | Summary of Care ---
Author Name Unknown Organization [facility] Address [address] [facility] [place] [address] Phone [phone] Care Team Providers Care Prize Coordinator Name Role Phone Brent Smith MD Primary Care Provider + Reason for Visit * Reason Onset Date Comments Appointment 02/16/2024 Encounter Details Date Type Department Care Team (Late st Contact Info) Description 02/16/2024 Telephone Rheumatology [facility] [address] [place] [address] Matthew Mari MD [address] [place] [address] Appointment Allergies Active Allergy Reactions Criticality Noted [...] as of this encounter (statuses as of 02/16/2024) Medications Medication Sig Dispensed Refills Start Date [...] 90 Tablet 3 04/01/2023 Active Nystatin-Triamcinolo ne 659586-3.1 UNIT/GM-% External Ointment (Mycolog)Indications :Dermatitis Apply topically to affected area 3 times a day. Apply to affected area 15 g 1 04/18/2023 Active Additional Information Patient not taking.Reported on 11/28/2023 Furosemide 20 MG Oral Tablet (Lasix)Indications:H TN, goal below 140/90,Coronary artery disease involving [place] heart without angina pectoris, unspecified vessel or [...] evening. 15 mL 1 08/29/2023 Active Pen [place] 32G X 4 MMIndications:Type 2 diabetes mellitus with hemoglobin A1c goal of less than 8.0% ([facility]) Use as directed. To administer insulin. 100 Each 3 08/29/2023 Active Pioglitazone HCl 30 MG Oral Tablet (Actos) Take 1 Tablet by mouth in the morning. 90 Tablet 3 08/29/2023 Active FreeStyle LancetsIndications:T ype 2 diabetes mellitus with hemoglobin A1c goal of less than 8.0% ([facility]) Use to test blood sugar twice daily or as directed E11.9 180 Each 09/08/2023 Active FreeStyle Lite Test In Vitro Strip (Glucose Blood)Indications:Ty pe 2 diabetes mellitus with hemoglobin A1c goal of less than 8.0% ([facility]) Use to test blood sugar twice daily or as directed DX 250.00 200 Strip 09/08/2023 Active Nitroglycerin 0.4 MG Sublingual Tablet Sublingual (Nitrostat) 1 tab under tongue every 5 minutes for chest pain as needed, up to 3 in 15 minutes 25 Tablet 1 09/07/2023 Active Additional Information Patient not taking.Reported on 11/28/2023 Albuterol Sulfate HFA 108 (90 Base) MCG/ACT Inhalation Aerosol Solution Inhale 2 Puffs by mouth every 6 hours as needed for Cough, Shortness of Breath or Wheezing. 18 g 3 09/27/2023 Active Benzonatate 100 MG Oral Capsule Take 1 Capsule by mouth 3 times a day as needed for Cough. 30 Capsule 1 09/27/2023 Active Additional Information Patient not taking.Reported on 11/28/2023 FLUoxetine HCl 40 MG Oral Capsule (PROzac) [...] DINNER 90 Tablet 1 02/01/2024 Active Tiotropium [place]-Olodaterol 2.5-2.5 MCG/ACT Inhalation Aerosol Solution (Stiolto Respimat)Indications :Centrilobular emphysema (HCC) Inhale 2 Puffs by mouth in the morning. 12 g 3 01/31/2024 Active documented as of this encounter (statuses as of 02/16/2024) Active Problems Problem Noted Date Diagnosed Date [...] done. 11/11 Upper endoscopy ok. 12/10 in [place]--upper/lower scope WNL--angie [address] Kaushal Giang. 11/19/20 [place] C-Spine [place]. DDD most C5-6. Mod central canal and mod left foraminal stenosis. Had C5-6 b/l NATAN 03/10 [facility]--WNL angie 10y 03/07 MRI lumbar [...] (coronary artery disease) 07/07/2012 Overview: STENT 2007 [facility] [place], [place] 2004 HTN, goal below 140/90 04/10/2012 [...] as of this encounter (statuses as of 02/16/2024) Resolved Problems Problem Noted Date Diagnosed Date Resolved Date Coronary artery disease invo lving [place] coronary artery of [place] heart with unstable angina pectoris 09/05/2019 08/06/2021 [...] as of this encounter (statuses as of 02/16/2024) Immunizations Name Administration Dates Next Due COVID-19 mRNA, LNP-s, No Pre serve, 2-Dose Series (Moderna) 10/27/2020,09/29/2020 COVID-19, LNP-s, No Preserve , Klaus-sucrose, Ages 12+ (Pfizer) 03/17/2022 COVID-19, MRNA-LNP, 23-24, P F, 30 MCG/0.3 mL, 12 YRS AND ABOVE, IM (GeoOP-ComirnatTriplify) 06/07/2023 COVID-19, mRNA, LNP-s, PF, B ooster, [...] encounter Miscellaneous Notes * Telephone Encounter - Shelly Davenport OSA - 02/16/2024 2:59 PM EDT Called patient and offered her an appointment in [place] tomorrow. She has an appointment to [facility] in on Tuesday and she will keep that appointment. * Telephone Encounter - Matthew Mari MD - 02/16/2024 2:48 PM EDT Please call and offer an appointment tomorrow in [facility] documented in this encounter Plan of Treatment Upcoming Encounters Date Type Department Care Team (Late st Contact Info) Description 02/20/2024 8:20 AM EDT Office Visit Rheumatology [address] [place] [address] Matthew Mari MD [address] [place] [address] [place], [place] [address] 02/28/2024 1:00 PM EDT Scheduled Telephone Pulmonary Medicine, [place] [address] [facility] [address] [place], Nurse Phone Call Pulmonary Agc3 [address] [facility] [place] [address] 03/08/2024 2:00 PM EDT Office Visit Orthopaedics [facility] 132 [facility] [place] [address] Clark Smith PA-C [address] [place] [address] [place] [address] 03/12/2024 8:10 AM EDT Laboratory Laboratory [facility] [address] [place] [phone] [place] [address] [place] [address] 03/15/2024 11:00 AM EDT Office Visit Hematology/Oncology [facility] [place] [address] [place] [phone] Angela Renteria CRNP [address] [place] [address] [place] [address] 03/27/2024 10:00 AM EDT Office Visit Pharmacy, [facility] [address] [place] [address] [facility] [address] [place], [place] [address] 03/27/2024 10:30 AM EDT Pharmacy Pharmacy, [facility] [address] [place], [place] [address] [facility] [address] [place] [address] 04/02/2024 10:00 AM EDT Telemedicine Psychiatry, [facility] [address] [place], [place] [address] Pedro Luis Casas CRNP [address] [place] [address] 05/10/2024 8:20 AM EDT Office Visit Hepatology, [facility] [address] [place], [place] [address] Lali Chowdhury DO [address] [place] [address] 05/10/2024 9:20 AM EDT Office Visit Family Practice [facility] [address] [place] [address] Brent Smith MD [address] [place] [address] 06/28/2024 9:30 AM EST Office Visit Cardiology, [facility] [address] [place] [address] Markell Brooks PA-C [address] [place] [address] Health Maintenance Due Date Last Done Comments [...] Additional history exists CKD PHOS USE SMARTSET 03291 08/05/202407/22, 08/09/2022, 08/06/2021, Additional history exists Diabetic Foot Exam 08/05/2024 08/05/2023, 1 09/18/2021, 09/04/2021, Additional history exists O2 ASSESSMENT COMPLETED IN PAST YEAR FOR COPD 11/30/2024 12/01/2023 B-12 12/14/2024 12/15/2023, 05/22, 11/12/2022, Additional history exists CKD HGB USE SMARTSET 33461 02/13/202502/13, 02/14/2024, 01/27/2024, Additional history exists Colonoscopy [...] 04/13/2021, 01/21, 09/27/2012 Alpha-1 Antitrypsin Completed 12/30/2022 Influenza Vaccine (FLU shot) Completed 05/06/2023, 05/13/2022, 06/16/2021, Additional history exists Lung Cancer Screening Completed 08/25/2023 , 08/18/2022, [...] Documents on File Type Date Recorded Patient Messenger Copy 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 Care Teams Prize Coordinator Relationship Specialty Start Date End Date Brent Smith MD [address] [place] [address] PCP - General Family Medicine 04/20/23 documented as of this encounter
--- OUTSIDE RECORDS SUMMARY | 2024-08-09 14:46 | External Medical Summary | Summary of Care ---
Author Name Unknown Organization [facility] Address [address] [facility] [address] Phone [phone] Care Team Providers Care Brokerage Purchase And Sale Clerk Name Role Phone Brent Smith MD Primary Care Provider + Reason for Visit * Reason Comments Outpatient Testing Encounter Details Date Type Department Care Team (Late st Contact Info) Description 02/20/2024 9:00 AM EDT Laboratory Laboratory, [facility] [address] [facility] [place] [phone] [facility] [address] [place] [address] Sarcoidosis Allergies Active Allergy Reactions Criticality Noted Date [...] 90 Tablet 3 04/01/2023 Active Nystatin-Triamcinolo ne 138743-3.1 UNIT/GM-% External Ointment (Mycolog)Indications :Dermatitis Apply topically to affected area 3 times a day. Apply to affected area 15 g 1 04/18/2023 Active Furosemide 20 MG Oral Tablet (Lasix)Indications:H TN, goal below 140/90,Coronary artery disease involving [place] heart without angina pectoris, unspecified vessel or [...] evening. 15 mL 1 08/29/2023 Active Pen [place] 32G X 4 MMIndications:Type 2 diabetes mellitus with hemoglobin A1c goal of less than 8.0% ([facility]) Use as directed. To administer insulin. 100 Each 3 08/29/2023 Active Pioglitazone HCl 30 MG Oral Tablet (Actos) Take 1 Tablet by mouth in the morning. 90 Tablet 3 08/29/2023 Active FreeStyle LancetsIndications:T ype 2 diabetes mellitus with hemoglobin A1c goal of less than 8.0% ([facility]) Use to test blood sugar twice daily or as directed E11.9 180 Each 09/08/2023 Active FreeStyle Lite Test In Vitro Strip (Glucose Blood)Indications:Ty pe 2 diabetes mellitus with hemoglobin A1c goal of less than 8.0% ([facility]) Use to test blood sugar twice [...] DINNER 90 Tablet 1 02/01/2024 Active Tiotropium [place]-Olodaterol 2.5-2.5 MCG/ACT Inhalation Aerosol Solution (Stiolto Respimat)Indications [...] (coronary artery disease) 07/07/2012 Overview: STENT 2008 [facility] [place] 2004 HTN, goal below 140/90 04/10/2012 Overview: Per HTN Protocol #27. ADVANCE DIRECTIVE INFORMATION 03/19/2010 Overview: Information offered-patient declined. Type 2 diabetes mellitus wit h hemoglobin A1c goal of less than 8.0% 08/06/2009 Overview: Per Lipid Taxonomy. ICD-10 update of inactive term Old myocardial infarct 03/13/2009 Overview: INFEROLATERAL [place] 2004 Chronic rhinitis 10/07/2008 Gastroparesis 04/27/2007 Sarcoidosis 05/12/2005 Overview: DX 2004 EGD showing nonnecrotizing granuloma stomach + wt loss. Saw pulm. FAMILY HX-GI MALIGNANCY 02/09/2005 documented as of this encounter (statuses as of 02/20/2024) Resolved Problems Problem Noted Date Diagnosed Date Resolved Date Coronary artery disease invo lving [place] coronary artery of [place] heart with unstable angina pectoris 09/05/2019 08/06/2021 [...] MCG/0.3 mL, 12 YRS AND ABOVE, IM ([facility] 06/07/2023 COVID-19, mRNA, LNP-s, PF, B [...] 1:00 PM EDT Scheduled Telephone Pulmonary Medicine, [place] [address] [place] [address] [place], Nurse Phone Call Pulmonary [facility] [address] [place] [address] 03/08/2024 2:00 PM EDT Office Visit Orthopaedics [facility] 132 [facility] [place] [address] Clark Smith PA-C [address] [place] [address] [place] [address] 03/12/2024 8:10 AM EDT Laboratory Laboratory [facility] [address] [facility] [place] [phone] [place], Lab [facility] [address] [facility] [place] [address] 03/15/2024 11:00 AM EDT Office Visit Hematology/Oncology [facility] [address] [facility] [place] [phone] Angela Renteria CRNP [address] [facility] [place] [address] 03/27/2024 10:00 AM EDT Office Visit Pharmacy, [facility] 132 [facility] [place] [address] [facility] [address] [place] [address] 03/27/2024 10:30 AM EDT Pharmacy Pharmacy, [facility] 132 [place] [address] [facility] [place] [address] 04/02/2024 10:00 AM EDT Telemedicine Psychiatry, [facility] [address] [place] [address] Pedro Luis Casas CRNP [address] [place], [place] [address] 05/10/2024 8:20 AM EDT Office Visit Hepatology, [facility] [place] [address] Lali Chowdhury DO [address] [place] [address] 05/10/2024 9:20 AM EDT Office Visit Family Practice [facility] [place] [address] Brent Smith MD [address] [place] [address] 06/28/2024 9:30 AM EST Office Visit Cardiology, [facility] [place] [address] Markell Brooks, PAEddyC [address] [place] [address] 08/28/2024 9:00 AM EST Office Visit Rheumatology [address] [place] [address] Matthew Mari MD [facility] [employer] [place] [address] Pending Results Name Type Priority Associated Diagnoses Date /Time TPMT ACTIVITY Lab Routine Sarcoidosis 02/20/2024 8:56 AM EDT G-6-PD, RBC Lab Routine Sarcoidosis 02/20/2024 8:56 AM EDT QUANTIFERON TB GOLD PLUS Lab Routine Sarcoidosis 02/20/2024 8:56 AM EDT Health Maintenance Due Date Last Done Comments Jeanette 1995 Sigmoidoscopy 1995 Fecal Occult Blood Test 01/20/2013 01/21/20 12, 10/07/2000, 10/05/1996 DISCUSS TOBACCO CESSATION (REFER TO SMARTSET #1291) 05/10/2018 05/10/2017 (Discussed) Depression Monitoring 09/04/2022 09/04/2021 [...] Additional history exists CKD PHOS USE SMARTSET 04339 08/05/202407/22, 08/09/2022, 08/06/2021, Additional history exists Diabetic Foot Exam 08/05/2024 08/05/2023, 1 09/18/2021, 09/04/2021, Additional history exists O2 ASSESSMENT COMPLETED IN PAST YEAR FOR COPD 11/30/2024 12/01/2023 B-12 12/14/2024 12/15/2023, 05/22, 11/12/2022, Additional history exists CKD HGB USE SMARTSET 98709 02/13/202502/13, 02/14/2024, 01/27/2024, Additional history exists Colonoscopy [...] of this encounter Visit Diagnoses Diagnosis Sarcoidosis documented in this encounter Advance Directives Documents on File Type Date Recorded Patient Social Services Director 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 Care Teams Brokerage Purchase And Sale Clerk Relationship Specialty Start Date End Date Brent Smith MD [address] [place] [address] PCP - General Family Medicine 04/20/23 documented as of this encounter
--- OUTSIDE RECORDS SUMMARY | 2024-08-09 14:46 | External Medical Summary ---
Author Name Unknown Address Unknown Organization K01:LAB[facility]ATORY [facility] - [address] [place] [address] Laboratory Report Ordering Provider Test Date Status KIRSTEN GAINES 03/12/2024 07:58:58 Final Observation Date Value Abnormality Reference (Units ) Status Iron 03/12/2024 07:58:58 71 33-151 (ug /dL) Final Iron-binding capacity 03/12/2024 07:58:58 262 250-425 (ug/dL) Final Transferrin Sat % 03/12/2024 07:58:58 27 15 -55 (%) Final Performing Location [facility] - [address] [place] [address]
--- OUTSIDE RECORDS SUMMARY | 2024-08-09 14:47 | External Medical Summary ---
Author Name Unknown Address Unknown Organization K0G:[facility] - [address] [place] [address] Laboratory Report Ordering Provider Test Date Status KIRSTEN GAINES 02/14/2024 08:42:25 Final Observation Date Value Abnormality Reference (Units ) Status WBC, Total 02/14/2024 08:42:25 7.89 4.00-10.8 0 (K/uL) Final RBC 02/14/2024 08:42:25 4.16 3.85-5.15 (M/uL) Final Hemoglobin 02/14/2024 08:42:25 12.2 12.0-15.3 (g/dL) Final HCT 02/14/2024 08:42:25 37.0 36.0-45.2 (%) Final MCV 02/14/2024 08:42:25 88.9 81.5-97.5 (fL) Final MCH 02/14/2024 08:42:25 29.3 27.0-34.0 (pg) Final MCHC 02/14/2024 08:42:25 33.0 32.0-36.0 (g/dL) Final RDW 02/14/2024 08:42:25 19.0 11.5-15.5 (%) Final Platelets 02/14/2024 08:42:25 180 140-400 (K /uL) Final MPV 02/14/2024 08:42:25 10.2 6.6-11.1 ( fL) Final Performing Location [facility] 0 - [address] [place] [address]
--- OUTSIDE RECORDS SUMMARY | 2024-08-09 14:47 | External Medical Summary ---
Author Name Unknown Address Unknown Organization K01:[facility] [place] [address] [place] [address] Laboratory Report Ordering Provider Test Date Status KIRSTEN GAINES 02/14/2024 08:42:25 Final Observation Date Value Abnormality Reference (Units ) Status Iron 02/14/2024 08:42:25 79 33-151 (ug /dL) Final Iron-binding capacity 02/14/2024 08:42:25 271 250-425 (ug/dL) Final Transferrin Sat % 02/14/2024 08:42:25 29 15 -55 (%) Final Performing Location LABORATORY C - [address] [place] [address]
--- OUTSIDE RECORDS SUMMARY | 2024-08-09 14:47 | External Medical Summary ---
Author Name Unknown Address Unknown Organization K0G:[facility] - [address] [place] [address] Laboratory Report Ordering Provider Test Date Status KIRSTEN GAINES 02/14/2024 08:42:25 Final Observation Date Value Abnormality Reference (Units ) Status SYNC LEUKOCYTES IN BLOOD BY AUTOMATED COUNT 02/14/2024 08:42:25 7.89 4.00-10.80 (K/uL) Final Segs 02/14/2024 08:42:25 66.7 40.0-75.0 (%) Final Lymphs % 02/14/2024 08:42:25 23.6 18.0-42.0 (%) Final Monos 02/14/2024 08:42:25 9.0 1.0-11.0 (%) Final Eosinophils 02/14/2024 08:42:25 0.1 0.0-6.0 (%) Final Basos 02/14/2024 08:42:25 0.6 0.0-2.0 (%) Final Absolute Segs 02/14/2024 08:42:25 5.26 1.80-7.70 (K/uL) Final Lymphs, absolute 02/14/2024 08:42:25 1.86 1.00-4.80 (K/ul) Final Monos, Abs 02/14/2024 08:42:25 0.71 0.00-1.10 (K/uL) Final Eos, Abs 02/14/2024 08:42:25 0.01 0.00-0.70 (K/uL) Final Basos, Abs 02/14/2024 08:42:25 0.05 0.00-0.20 (K/uL) Final Performing Location [facility] 0 - [address] [place] [address]
--- OUTSIDE RECORDS SUMMARY | 2024-08-09 14:47 | External Medical Summary | Summary of Care ---
Author Name Unknown Organization [facility] Address [address] [facility] [place] [address] Phone [phone] Care Team Providers Care Store Team Leader Name Role Phone Brent Smith MD Primary Care Provider + Reason for Visit * Reason Comments Outpatient Testing Encounter Details Date Type Department Care Team (Late st Contact Info) Description 02/14/2024 8:30 AM EDT Laboratory Laboratory, [facility] [place] [phone] [facility] [address] [place] [address] Iron deficiency anemia, unspecified iron deficiency anemia [...] as of this encounter (statuses as of 02/14/2024) Medications Medication Sig Dispensed Refills Start Date [...] 90 Tablet 3 04/01/2023 Active Nystatin-Triamcinolo ne 518104-6.1 UNIT/GM-% External Ointment (Mycolog)Indications :Dermatitis Apply topically to affected area 3 times a day. Apply to affected area 15 g 1 04/18/2023 Active Additional Information Patient not taking.Reported on 11/28/2023 Furosemide 20 MG Oral Tablet (Lasix)Indications:H TN, goal below 140/90,Coronary artery disease involving [place] heart without angina pectoris, unspecified vessel or [...] evening. 15 mL 1 08/29/2023 Active Pen [place] 32G X 4 MMIndications:Type 2 diabetes mellitus with hemoglobin A1c goal of less than 8.0% ([facility]) Use as directed. To administer insulin. [...] 90 Tablet 1 02/01/2024 Active Tiotropium [place]-Olodaterol 2.5-2.5 MCG/ACT Inhalation Aerosol Solution (Stiolto Respimat)Indications :Centrilobular emphysema (HCC) Inhale 2 Puffs by mouth in the morning. 12 g 3 01/31/2024 Active documented as of this encounter (statuses as of 02/14/2024) Active Problems Problem Noted Date Diagnosed Date [...] Dr Kaushal Giang. 11/19/20 MRI C-[place]ine in [place]. DDD most C5-6. Mod central canal and mod left foraminal stenosis. Had C5-6 b/l NATAN 03/10 [facility] 10y 03/07 MRI lumbar [...] artery disease) 07/07/2012 Overview: STENT 2007 [facility] [place] 2004 HTN, goal below 140/90 04/10/2012 Overview: Per HTN Protocol #27. ADVANCE DIRECTIVE INFORMATION 03/19/2010 Overview: Information offered-patient declined. Type 2 diabetes mellitus wit h hemoglobin A1c goal of less than 8.0% 08/06/2009 Overview: Per Lipid Taxonomy. ICD-10 update of inactive term Old myocardial infarct 03/13/2009 Overview: INFEROLATERAL [place] 2004 Chronic rhinitis 10/07/2008 Gastroparesis 04/27/2007 Sarcoidosis 05/12/2005 Overview: DX 2004 EGD showing nonnecrotizing granuloma stomach + wt loss. Saw pulm. FAMILY HX-GI MALIGNANCY 02/09/2005 documented as of this encounter (statuses as of 02/14/2024) Resolved Problems Problem Noted Date Diagnosed Date Resolved Date Coronary artery disease invo lving [place] coronary artery of [place] heart with unstable angina pectoris 09/05/2019 08/06/2021 [...] as of this encounter (statuses as of 02/14/2024) Immunizations Name Administration Dates Next Due COVID-19 mRNA, LNP-s, No Pre serve, 2-Dose Series (Moderna) 10/27/2020,09/29/2020 COVID-19, LNP-s, No Preserve , Klaus-sucrose, Ages 12+ (Pfizer) 03/17/2022 COVID-19, MRNA-LNP, 23-24, P F, 30 MCG/0.3 mL, 12 YRS AND ABOVE, IM (Contact At Once!-ComirnatSocial Moov) 06/07/2023 COVID-19, mRNA, LNP-s, PF, B ooster, 100mcg/0.5mg (Moderna) 07/03/2021 Covid-19, Mrna, Lnp-s, Pf, B ivalent, 30 Mcg, IM, 12 yrs and above (DotBlu) 08/18/2022 H1N1 2009 Influenza, IM 09/05/2009 Hepatitis [...] 02/20/2024 8:20 AM EDT Office Visit Rheumatology [facility] [address] [facility] [place] [address] Matthew Mari MD [facility] [place] [address] 02/28/2024 1:00 PM EDT Scheduled Telephone Pulmonary Medicine, [place] [address] [place] [address] [place], Nurse Phone Call Pulmonary [facility] [address] [place] [address] 03/08/2024 2:00 PM EDT Office Visit Orthopaedics [facility] 132 [facility] [place] [address] Clark Smith PA-C [address] [place] [address] [place] [address] 03/12/2024 8:10 AM EDT Laboratory Laboratory [facility] [address] [place] [phone] Adrianna Lab [facility] [address] [place] [address] 03/15/2024 11:00 AM EDT Office Visit Hematology/Oncology [facility] [address] [place] [phone] Angela Renteria CRNP [address] [facility] [place] [address] 03/27/2024 10:00 AM EDT Office Visit Pharmacy, [facility] [address] [place] [address] [facility] [address] [place] [address] 03/27/2024 10:30 AM EDT Pharmacy Pharmacy, [facility] [address] [place] [address] [facility] [address] [place] [address] 04/02/2024 10:00 AM EDT Telemedicine Psychiatry, [facility] [address] [place] [address] Pedro Luis Casas CRNP [address] [place] [address] 05/10/2024 8:20 AM EDT Office Visit Hepatology, [facility] [address] [place] [address] Lali Chowdhury DO [address] [place] [address] 05/10/2024 9:20 AM EDT Office Visit Family Practice [facility] [address] [place] [address] Brent Smith MD [address] [place] [address] 06/28/2024 9:30 AM EST Office Visit Cardiology, [facility] [address] [place] [address] Markell Brooks PA-C [address] [place] [address] Pending Results Name Type Priority Associated Diagnoses Date /Time IRON SCREEN, INCLUDING TIBC Lab STAT Iron deficiency anemia, unspecified iron deficiency anemia type 02/14/2024 8:42 AM EDT FERRITIN Lab STAT Iron deficiency anemia, unspecified iron deficiency anemia type 02/14/2024 8:42 AM EDT Health Maintenance Due Date Last [...] Additional history exists CKD PHOS USE SMARTSET 97423 08/05/202407/22, 08/09/2022, 08/06/2021, Additional history exists Diabetic Foot Exam 08/05/2024 08/05/2023, 09/18/2021, 09/04/2021, Additional history exists O2 ASSESSMENT COMPLETED IN PAST YEAR FOR COPD 11/30/2024 12/01/2023 B-12 12/14/2024 12/15/2023, 05/22, 11/12/2022, Additional history exists CKD HGB USE SMARTSET 15316 01/26/202502/13, 02/14/2024, 01/27/2024, Additional history exists Colonoscopy 11/30/2028 [...] Date/Time Associated Diagnosis Comments DIFFERENTIAL, AUTOMATED STAT 02/14/2024 8:42 AM EDT Iron deficiency anemia, unspecified iron deficiency anemia type CBC STAT 02/14/2024 8:42 AM EDT Iron deficiency anemia, unspecified iron deficiency anemia type CBC STAT 02/14/2024 8:42 AM EDT Iron deficiency anemia, unspecified iron deficiency anemia type documented in this encounter Results * DIFFERENTIAL, AUTOMATED (02/14/2024 8:42 AM EDT) WBC 7.89 4.00 - 10.80 K/uL 02/14/2024 8:51 AM EDT [facility] Neutrophils % 66.7 40.0 - 75.0 % 02/14/2024 8:51 AM EDT [facility] Lymphocytes % 23.6 18.0 - 42.0 % 02/14/2024 8:51 AM EDT [facility] Monocytes % 9.0 1.0 - 11.0 % 02/14/2024 8:51 AM EDT [facility] Eosinophils % 0.1 0.0 - 6.0 % 02/14/2024 8:51 AM EDT [facility] Basophils % 0.6 0.0 - 2.0 % 02/14/2024 8:51 AM EDT [facility] Absolute Neutrophils 5.26 1.80 - 7.70 K/uL 02/14/2024 8:51 AM EDT [facility] Absolute Lymphocytes 1.86 1.00 - 4.80 K/ul 02/14/2024 8:51 AM EDT [facility] Absolute Monocytes 0.71 0.00 - 1.10 K/uL 02/14/2024 8:51 AM EDT [facility] Absolute Eosinophils 0.01 0.00 - 0.70 K/uL 02/14/2024 8:51 AM EDT [facility] Absolute Basophils 0.05 0.00 - 0.20 K/uL 02/14/2024 8:51 AM EDT [facility] Blood Venous blood specimen / Unknown Venipuncture / Unknown 02/14/2024 8:42 AM EDT 02/14/2024 8:42 AM EDT Angela ZAMBRANO LAB BLOOD ORDER TRUDI [facility] [address] [place] [address] * CBC (02/14/2024 8:42 AM EDT) [facility] WBC 7.89 4.00 - 10.80 K/uL 02/14/2024 8:51 AM EDT [facility] RBC 4.16 3.85 - 5.15 M/uL 02/14/2024 8:51 AM EDT [facility] HGB 12.2 12.0 - 15.3 g/dL 02/14/2024 8:51 AM EDT [facility] HCT 37.0 36.0 - 45.2 % 02/14/2024 8:51 AM EDT [facility] MCV 88.9 81.5 - 97.5 fL 02/14/2024 8:51 AM EDT [facility] MCH 29.3 27.0 - 34.0 pg 02/14/2024 8:51 AM EDT [facility] MCHC 33.0 32.0 - 36.0 g/dL 02/14/2024 8:51 AM EDT [facility] RDW 19.0 11.5 - 15.5 % 02/14/2024 8:51 AM EDT [facility] PLT 180 140 - 400 K/uL 02/14/2024 8:51 AM EDT [facility] MPV 10.2 6.6 - 11.1 fL 02/14/2024 8:51 AM EDT [facility] Blood Venous blood specimen / Unknown Venipuncture / Unknown 02/14/2024 8:42 AM EDT 02/14/2024 8:42 AM EDT Angela ZAMBRANO LAB BLOOD ORDER TRUDI [facility] [address] [place] [address] documented in this encounter Visit Diagnoses Diagnosis Iron deficiency anemia, unspecified iron deficiency anemia type documented in this encounter Advance Directives Documents on File Type Date Recorded Patient Garnetter 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 Care Teams Store Team Leader Relationship Specialty Start Date End Date Brent Smith MD [address] [place] [address] PCP - General Family Medicine 04/20/23 documented as of this encounter
--- OUTSIDE RECORDS SUMMARY | 2024-08-09 14:47 | External Medical Summary ---
Author Name Unknown Address Unknown Organization K01:[facility] [place] [address] [place] [address] Laboratory Report Ordering Provider Test Date Status KIRSTEN GAINES 02/14/2024 08:42:25 Final Observation Date Value Abnormality Reference (Units ) Status Ferritin 02/14/2024 08:42:25 187 Above high normal 13 -150 (ng/mL) Final Postmenopausal women have hi gher ferritin levels than pre-menopausal women. The above reference interval is based on pre-menopausal women. Performing Location [facility] - [address] [place] [address]
[2024-08-09] MEDS: VENLAFAXINE HCL XR 75 MG CAPXR PO SCH (16:27)
[2024-08-09] MEDS: VENLAFAXINE HCL XR 150 MG CAPXR PO SCH (16:27)
[2024-08-09] MEDS ORDERED: MELATONIN 3 MG TAB PO PRN (16:45)
[2024-08-09] MEDS: EZETIMIBE 10 MG TAB PO SCH (17:35)
[2024-08-09] MEDS: ROSUVASTATIN CALCIUM 20 MG TAB PO SCH (17:38)
[2024-08-09] MEDS: INSULIN ASPART PER UNIT CHARGE SC SCH (18:27)
[2024-08-09] MEDS: PANTOprazole 40 MG TAB PO SCH (18:30)
[2024-08-09] MEDS ORDERED: PANTOprazole 40 MG TAB PO SCH (21:00)
[2024-08-09] MEDS ORDERED: MELATONIN 3 MG TAB PO SCH ×2 (21:00)
[2024-08-09] MEDS ORDERED: AMITRIPTYLINE HCL 10 MG TAB PO SCH (21:00)
[2024-08-09] MEDS ORDERED: METOPROLOL SUCC 50MG EXT REL TAB PO SCH (21:00)
[2024-08-09] MEDS ORDERED: CALCIUM 600MG + VIT D 400 IU TAB PO SCH ×2 (21:00)
[2024-08-09] MEDS ORDERED: clonazePAM 1 MG TAB PO SCH (21:00)
[2024-08-09] MEDS ORDERED: TOPIRAMATE 25 MG TAB PO SCH (21:00)
[2024-08-09] MEDS ORDERED: CHLORZOXAZONE 500 MG TAB PO SCH (21:00)
[2024-08-09] MEDS: clonazePAM 0.5 MG TAB PO SCH (21:24)
[2024-08-09] MEDS: AMITRIPTYLINE HCL 10 MG TAB PO SCH (21:25)
[2024-08-09] MEDS: MELATONIN 3 MG TAB PO SCH (21:25)
[2024-08-09] MEDS: CHLORZOXAZONE 500 MG TAB PO SCH (21:25)
[2024-08-09] MEDS: CALCIUM 600MG + VIT D 400 IU TAB PO SCH (21:26)
[2024-08-09] MEDS: METOPROLOL SUCC 50MG EXT REL TAB PO SCH (21:27)
[2024-08-10 06:30] LABS: Hematocrit (blood only) 35.8 % (37.0-47.0); Hemoglobin 12.1 g/dl (12.0-16.0); Mean Corpuscular Hemoglobin 32.6 pg (25.0-34.0); Mean Corpuscular Hgb Conc 33.8 g/dL (32.0-36.0); Mean Corpuscular Volume 96.5 fL (80.0-100.0); Mean Platelet Volume 10.7 fL (9.4-12.4); Platelet Count 141 K/uL (130-400); RDW Coefficient of Variation 12.7 % (11.5-14.5); RDW Standard Deviation 45.1 fL (36.4-46.3); Red Blood Count 3.71 M/uL (4.20-5.40); White Blood Count 7.87 K/ul (4.8-10.8)
[2024-08-10 06:53] LABS: BUN Creatinine Ratio 13.2 (10-20); Calcium 9.2 mg/dl (8.6-10.3); Creatinine Clr Calc Pharmacy 35.8 ml/min; Potassium 4.6 mmol/L (3.5-5.1)
--- NOTE | 2024-08-10 08:33 | Hospitalist Progress Note ---
Date of Service August 10, 2024 Assessment & Plan (1) Abnormal nuclear stress test: (2) Status post insertion of drug-eluting stent into left anterior descending (LAD) artery for coronary artery disease: (3) HTN (hypertension): (4) Diabetes mellitus type 2 with complications: (5) Major depressive disorder: (6) Migraine headache with aura: (7) COPD (chronic obstructive pulmonary disease): (8) Tobacco use: (9) Obstructive sleep apnea: Plan This is a 74-year-old female with PMH of type 2 diabetes, dyslipidemia, COPD, [place], history of CAD status post PCI today, autoimmune hepatitis, CKD 3, mood disorder and other medical problems listed below who presented for cardiac cath following abnormal outpatient stress test. CAD s/p PCI Cardiac catheterization today for abnormal stress test - post cath dx of severe CAD and successful PCI of mid LAD with intravascular lithotripsy and 2 overlapping BANDAR Managed by primary service continue aspirin, plavix, statin, Toprol Resume Lasix per cards tomorrow DM II A1c 7.5 08/01/24 Hold home agents SSI while in-patient BSG AC HS CKD III Baseline Cr 1.2 COPD Not on O2 at baseline Continue Stiolto Respimat inh, PRN albuterol Mood disorder Continue Fluoxetine QAM, Klonopin 0.5mg BID per home HLD Continue statin, Zetia H/o migraines Ajovy inj (due end of month), chlorzoxazone HS, Amitriptyline HS GERD Protonix BID [place] Mild, non-compliant with cpap Code status: FULL PCP: Luis Dispo: Observation PCU Patient seen in collaboration with Dr. Argueta. Please see addendum. I spent a total of 50 minutes coordinating, documenting, and providing care for this patient excluding time spent in the performance of separately billed services. Thank you for this consultation. We will follow the patient with you during their hospital stay. You can reach a member of the [facility] Hospitalist Team 14/03 via [employer]. Admission and Anticipated Discharge Date Admission Date: August 09, 2024 Subjective NAEO Sitting upright and ready for breakfast Denies any chest pain, sob, palpitations, Results & Data Results & Data Vital Signs (Past 12 Hours) Vital Signs Temp Pulse Pulse Resp BP Pulse Ox O2 Del Method 08/10/24 08:00 37.0 C 65 20 162/79 H 95 Room Air 08/10/24 03:27 37.1 C 74 16 132/73 97 Room Air 08/09/24 23:12 36.4 C L 68 16 158/78 H 95 Room Air 08/09/24 22:00 64
[2024-08-10] MEDS: FLUoxetine HCL 20 MG CAP PO SCH (08:36)
[2024-08-10] MEDS: CLOPIDOGREL BISULFATE 75 MG TAB PO SCH (08:36)
[2024-08-10] MEDS: UMECLIDINIUM/VILANTEROL 62.5/25MCG 7 PUFFS/INHALER INH SCH (08:38)
[2024-08-10] MEDS: ASPIRIN 81 MG ECTAB PO SCH (08:39)
[2024-08-10] MEDS ORDERED: ASPIRIN 81 MG ECTAB PO SCH (09:00)
[2024-08-10] MEDS ORDERED: TOPIRAMATE 50 MG TAB PO SCH (09:00)
[2024-08-10] MEDS ORDERED: clonazePAM 0.5 MG TAB PO SCH (09:00)
[2024-08-10] MEDS: clonazePAM 0.5 MG TAB PO SCH (09:20)
[2024-08-10] MEDS: metFORMIN HCL 500 MG TAB PO SCH (09:20)
--- NOTE | 2024-08-10 10:03 | Cardiology Progress Note ---
Date of Service August 10, 2024 Assessment & Plan (1) Status post insertion of drug-eluting stent into left anterior descending (LAD) artery: (2) Abnormal nuclear stress test: (3) Coronary artery disease with exertional angina: (4) Diabetes: (5) Dyslipidemia: Plan 74-year-old female status post 2 drug-eluting stents implanted to the mid LAD. Stable for discharge from a cardiovascular perspective. Discussed importance of continuing dual antiplatelet therapy uninterrupted for minimum of 12 months post percutaneous intervention. She may restart metformin tomorrow 08/11/2024. Postcardiac catheterization activity restrictions listed below. Routine cardiology follow-up as scheduled. ACTIVITY RECOMMENDATIONS: It is common to feel weak and fatigue for a few days. * Do not drive or operate any motorized equipment for the next three days. * Limit stair usage (2 or 3 trips a day only) for the next three days. * Do not lift anything heavier than 10 pounds for the next three days. * Do not engage in vigorous exercise or any sports for the next five days. * You may shower the day after your procedure, but do not immerse the area for three days. Cleanse the site gently with soap and water. SPECIAL CARE INSTRUCTIONS: * You may replace the pressure dressing or band-aid the morning after the procedure. * After your procedure, it is normal to have a small bruise or small lump at the site. Examine your site daily for any change in the bruise or lump, redness, swelling, drainage or numbness. Notify your doctor if any change. BLEEDING: * If there is a small amount of bleeding at the site, lie down and apply firm pressure with a clean cloth for ten minutes. When the bleeding stops, lie quietly keeping the procedure limb straight for six hours. Notify your doctor as soon as possible. * If the bleeding does not stop after ten minutes or if there is a large amount of bleeding or spurting, call 911 immediately. Continue to lie down and hold firm pressure until help arrives. SKIN IRRITATION: * You may experience some redness and/or swelling in the area where radiation was administered. If any skin irritation occurs, please contact your family physician. FOLLOW UP VISIT: Keep any scheduled doctor appointments. Admission and Anticipated Discharge Date Admission Date: August 09, 2024 Subjective Patient seen and examined at the bedside. Feeling well this morning. Telemetry reveals sinus rhythm. Denies recurrent chest discomfort or shortness of breath. Anxious for discharge. present at bedside. Offers no additional concerns/complaints. Review of Systems Review of Systems: All systems reviewed & are unremarkable except as noted in Subjective Physical Exam Constitutional: well nourished; no acute distress ENMT: Mallampati Class: III Respiratory: normal respiratory effort; no respiratory distress, no labored breathing and no retractions Auscultation: no crackles, no rales, no rhonchi and no wheezes Cardiovascular: Rate/Rhythm: regular rate and regular rhythm Heart Sounds: normal S1 and normal S2; no murmur Vessels: femoral pulses present and radial pulses present; no JVD and no carotid bruit Extremities: no edema Gastrointestinal (Abdomen): Inspection/Auscultation: abdomen normal to inspection and normal bowel sounds; abdomen not distended Percussion/Palpation: abdomen soft; abdomen nontender, no guarding and abdomen not rigid Neurologic: CN's II-XI intact bilaterally and moves all extremities Results & Data Vital Signs (Past 12 Hours) Vital Signs Temp Pulse Pulse Resp BP Pulse Ox O2 Del Method 08/10/24 08:00 37.0 C 65 20 162/79 H 95 Room Air 08/10/24 03:27 37.1 C 74 16 132/73 97 Room Air 08/09/24 23:12 36.4 C L 68 16 158/78 H 95 Room Air 08/09/24 22:00 64 Laboratory Results CBC 08/10/24 Range/Units 05:54 WBC 7.87 (4.8-10.8) K/ul RBC 3.71 L (4.20-5.40) M/uL Hgb 12.1 (12.0-16.0) g/dl Hct 35.8 L (37.0-47.0) % Plt Count 141 (130-400) K/uL Comprehensive Metabolic Panel 08/10/24 Range/Units 05:54 Sodium 135 L (136-145) mmol/L Potassium 4.6 (3.5-5.1) mmol/L Chloride 104 (98-107) mmol/L Carbon Dioxide 25 (21-32) mmol/L BUN 15 (6-23) mg/dl Creatinine 1.14 (0.6-1.2) mg/dl Glucose 161 H (70-99(Fasting)) mg/dl Calcium 9.2 (8.6-10.3) mg/dl Intake and Output 08/09/24 08/10/24 08/10/24 22:59 06:59 14:59 Intake Total 240 / 240 Balance 240 / 240 Intake: Oral 240 / 240 Other: # Unmeasured Voids 1 1 Weight 60.1 kg Weight Measurement Method Built in [facility]
[2024-08-10 10:47] VITALS: RESP 16; TEMP 98.2; O2SAT 93
--- NOTE | 2024-08-10 12:16 | Discharge Summary ---
Discharge Summary Date of Service August 10, 2024 Principal Dx & Hospital Course #1 = Principal Diagnosis (1) Abnormal nuclear stress test: (2) Status post insertion of drug-eluting stent into left anterior descending (LAD) artery for coronary artery disease: (3) HTN (hypertension): (4) Diabetes mellitus type 2 with complications: (5) Major depressive disorder: (6) Migraine headache with aura: (7) COPD (chronic obstructive pulmonary disease): (8) Tobacco use: (9) Obstructive sleep apnea: Notes For Next Care Provider Medication Changes From Visit Plavix 75 mg daily Admission HPI Per Admitting Provider Ms. Macdonald is a 74-year-old female presents for left heart catheterization. Complex cardiovascular history listed below. Recent symptoms include shortness of breath and dyspnea on exertion. Reports intermittent chest discomfort at rest as well as with activity. Chest discomfort often associated with anxiety .Recent nuclear stress test demonstrating LAD territory versus diagonal branch vessel ischemia. Patient underwent LHC on 08/09 with placement of 2 overlapping stents in LAD Patient did well post-cath. No arrhythmias on tele, no chest pain, and stable radial access. On day of discharge, patient ambulatory, denying chest pain or SOB #s/p BANDAR x 2 to LAD 08/09 #Obstructive Coronary artery disease s/p stenting of the proximal RCA with a drug-eluting stent by Dr. Tobin on 11/06/2007, BANDAR 2019 to mid LAD #Abnormal stress test loaded with plavix Plan to continue DAPT with asa/plavix for atleast 1 year Continue all other home medications Admission Exam Per Admitting Provider Constitutional: well nourished; no acute distress Respiratory: no respiratory distress, no labored breathing and no retractions Auscultation: no crackles, no rales, no rhonchi and no wheezes Cardiovascular: Rate/Rhythm: regular rate and regular rhythm Heart Sounds: normal S1 and normal S2; no murmur Vessels: femoral pulses present and radial pulses present; no JVD Extremities: no edema Gastrointestinal (Abdomen): Inspection/Auscultation: abdomen normal to inspection and normal bowel sounds; abdomen not distended Percussion/Palpation: abdomen soft; abdomen nontender, no guarding and abdomen not rigid Neurologic: CN's II-XI intact bilaterally and moves all extremities Discharge Exam Constitutional WD/WN, vitals as above Respiratory normal respiratory effort, lungs clear to auscultation Cardiovascular RRR, no murmur, no edema Skin right wrist with bandage in place, sensation in tact, no hematoma noted, no pain Updated Medication List Medication Instructions Recorded Confirmed Type amitriptyline 10 mg tablet 10 mg PO HS 01/31/19 08/09/24 History aspirin 81 mg tablet,delayed 81 mg PO DAILY 01/31/19 08/09/24 History release (Aspir-) melatonin 3 mg tablet 3 mg PO HS 01/31/19 08/09/24 History metoprolol succinate 100 mg 100 mg PO BID 01/31/19 08/09/24 History tablet,extended release 24 hr (Toprol XL) nitroglycerin 0.4 mg sublingual 0.4 mg sublingual DIRECTED PRN 01/31/19 08/09/24 History tablet (Nitrostat) Chest Pain ondansetron HCl 4 mg tablet 4 mg PO Q8H PRN Nausea 01/31/19 08/09/24 History (Zofran) pantoprazole 40 mg tablet,delayed 40 mg PO BID 01/31/19 08/09/24 History release polyethylene glycol 3350 17 gram 17 g PO DAILY PRN Constipation 01/31/19 08/09/24 History oral powder packet (Miralax) rosuvastatin 40 mg tablet (Crestor) 40 mg PO QPM 01/31/19 08/09/24 History albuterol sulfate 90 mcg/actuation 2 puff inhalation Q4H PRN 08/21/19 08/09/24 History aerosol inhaler Shortness Of Breath Or Wheezing calcium 500 mg (as 1 tab PO QPM 08/21/19 08/09/24 History carbonate)-vitamin D3 3.125 mcg (125 unit) tablet (Calcium) chlorzoxazone 500 mg tablet 500 mg PO HS 08/21/19 08/09/24 History clonazepam 1 mg tablet 0.5 mg PO HS 08/21/19 08/09/24 History clonazepam 1 mg tablet 0.5 mg PO QAM 08/21/19 08/09/24 History ezetimibe 10 mg tablet 10 mg HS 08/09/24 08/09/24 History fluoxetine 40 mg capsule 40 mg QAM 08/09/24 08/09/24 History fremanezumab-vfrm 225 mg/1.5 mL 225 mg subcut MONTHLY 08/09/24 08/09/24 History subcutaneous auto-injector (Ajovy) furosemide 20 mg tablet 20 mg PO DAILY 08/09/24 08/09/24 History metformin 1,000 mg tablet 1,000 mg BID 08/09/24 08/09/24 History pioglitazone 45 mg tablet 45 mg PO QAM 08/09/24 08/09/24 History tiotropium 2.5 mcg-olodaterol 2.5 2 inh inhalation DAILY 08/09/24 08/09/24 History mcg/actuation mist for inhalation (Stiolto Respimat) clopidogrel 75 mg tablet (Plavix) 75 mg PO DAILY 30 days #30 tabs 08/10/24 Rx Hospital Stay Data Consultations 08/09/24 10:24 Consult Hospitalist Routine Procedures Performed Operation Date: 08/09/24 08:00 Actual Procedures p Cath, Left with Cors and Vent - Dexter Morales, DO s Cineradiography w/Routine Exam - Dexter Morales, DO p Drug Eluting Stent SGl Vessel - Davie Gomez MD Diagnostic Imagining Performed 08/09/24 06:56 CL Cath Imgs for PACS use only Routine Pending Results Patient Have Any Pending Studies at Discharge: No Discharge Instructions Given to Patient (Per Discharging Provider) You were admitted to for monitoring after heart catheterization. You received stents in the LAD and monitored overnight. You will resume home medications It is imperative you continue plavix 75 mg daily and ASA 81mg daily ACTIVITY RECOMMENDATIONS: It is common to feel weak and fatigue for a few days. * Do not drive or operate any motorized equipment for the next three days. * Limit stair usage (2 or 3 trips a day only) for the next three days. * Do not lift anything heavier than 10 pounds for the next three days. * Do not engage in vigorous exercise or any sports for the next five days. * You may shower the day after your procedure, but do not immerse the area for three days. Cleanse the site gently with soap and water. SPECIAL CARE INSTRUCTIONS: * You may replace the pressure dressing or band-aid the morning after the procedure. * After your procedure, it is normal to have a small bruise or small lump at the site. Examine your site daily for any change in the bruise or lump, redness, swelling, drainage or numbness. Notify your doctor if any change. BLEEDING: * If there is a small amount of bleeding at the site, lie down and apply firm pressure with a clean cloth for ten minutes. When the bleeding stops, lie quietly keeping the procedure limb straight for six hours. Notify your doctor as soon as possible. * If the bleeding does not stop after ten minutes or if there is a large amount of bleeding or spurting, call 911 immediately. Continue to lie down and hold firm pressure until help arrives. SKIN IRRITATION: * You may experience some redness and/or swelling in the area where radiation was administered. If any skin irritation occurs, please contact your family physician. FOLLOW UP VISIT: Keep any scheduled doctor appointments. Total Time Total Time Spent Total Time Spent (In Minutes): 45
[2024-08-10 12:19] VITALS: BP 158/83; PULSE 62
--- NOTE | 2024-08-11 12:37 | Electrocardiogram Report ---
Test Reason : Blood Pressure : */* mmHG Vent. Rate : 58 BPM Atrial Rate : 58 BPM P-R Int : 160 ms QRS Dur : 64 ms QT Int : 460 ms P-R-T Axes : 69 -48 41 degrees QTcB Int : 451 ms Sinus bradycardia Left axis deviation Low voltage QRS Cannot rule out Anteroseptal infarct (cited on or before 31-Jan-2019) Abnormal ECG When compared with ECG of 01-Feb-2019 07:10, QRS axis Shifted left Questionable change in initial forces of Anterior leads Nonspecific T wave abnormality no longer evident in Lateral leads Confirmed by Adrian Guzman ([id number]) on 08/11/2024 12:36:51 PM Referred By: Markell Brooks Confirmed By: Adrian Guzman
== END 2024-08-10 13:00 | disposition home or self-care (01) ==
LOC: CC 06:42 → 4W 06:42